=== PATIENT | female | born 1935 ===

== ENCOUNTER 2016-05-11 17:29 | Inpatient (IN) | payer MEDICARE, MEDICAID ==
[2016-05-11 17:30] VITALS: BMI 36.6
--- NOTE | 2016-05-11 18:06 | ED PDOC ---
HPI: Altered Mental Status Time Seen by Provider: 05/11/16 17:42 Chief Complaint (Nursing): Altered Mental Status History Per: Family History/Exam Limitations: Clinical Condition Onset/Duration Of Symptoms: Days (last known better yesterday evening) Current Symptoms Are (Timing): Still Present Usual Baseline: Non-verbal Exacerbating Factor(s): Diabetic Associated Symptoms: denies: Fever Additional Complaint(s): 17:55 Vanessa May is an 80 year old female with a history of diabetes, hypercholesterolemia, hypertension, thyroid disease, COPD, emphysema, and pancreatic cancer that was brought into the ED after being in the TCU earlier today. Her family reports that she had been admitted to the hospital eight days ago due to abnormalities in her kidneys and an infection in her legs, and that she had been improving over the course of her admission. Patient was better last night, but has been verbally and decreased responsive since checked on this morning. She is mildly physically responsive, in that she is moving her jaw and her feet, and has not had any fever or shortness of breath. PMD: Eddie Holm MD Past Medical History Reviewed: Historical Data, Nursing Documentation, Vital Signs Vital Signs: Last Vital Signs Temp Pulse 96 H 05/11/16 17:39 Resp 16 05/11/16 17:39 BP 131/58 L 05/11/16 17:39 Pulse Ox - Medical History PMH: Anxiety, Arthritis, COPD, Depression, Diabetes, HTN, Hypercholesterolemia, Hypothyroidism, Pneumonia, Chronic Kidney Disease Denies: Atrial Fibrillation, CAD, Cardia Arrhythmia, CHF, HIV, Mitral Valve Prolapse, Peripheral Edema - Surgical History Surgical History: Cholecystectomy Denies: Pacemaker - Family History Family History: States: Unknown Family Hx - Living Arrangements Living Arrangements: With Family - Social History Current smoker - smoking cessation education provided: No Alcohol: None Drugs: Denies - Immunization History Hx Tetanus Toxoid Vaccination: Yes - Home Medications Home Medications: Ambulatory Orders Medication Instructions Recorded Atorvastatin [Lipitor] 40 mg PO DAILY 05/17/15 Furosemide 20 mg PO DAILY 05/17/15 Levothyroxine [Synthroid] 25 mcg PO DAILY 05/17/15 Sevelamer Carbonate [Renvela] 800 mg PO DIN 05/17/15 Losartan [Cozaar] 100 mg PO DAILY 05/03/16 PARoxetine [Paxil] 40 mg PO DAILY 05/03/16 Potassium Chloride [K-Dur 20 mEq 20 meq PO DAILY 05/03/16 ER Tab] metFORMIN [glucOPHAGE] 500 mg PO TID 05/03/16 Cefepime [Maxipime] 1 gm IV Q12 #7 vial 05/09/16 Magnesium Oxide [Mag-Ox] 400 mg PO DAILY #30 tab 05/09/16 Menthol/Methyl Salicylate [BenGay] 1 applic TOP QID #30 tube 05/09/16 Vancomycin 1 GM [Vancomycin 1GM in 1 gm IVPB Q12 #7 bag 05/09/16 Normal Saline Addvantage] levETIRAcetam 500mg IVPB [Keppra 500 mg IV Q12 #10 bag 05/09/16 500mg IVPB] - Allergies Allergies/Adverse Reactions: Allergies Allergy/AdvReac Type Severity Reaction Status Date / Time william AdvReac Severe HEADACHE Uncoded 05/11/16 17:37 Review of Systems Review Of Systems: ROS cannot be obtained secondary to pt's inabilty to answer questions. Constitutional: Negative for: Fever Respiratory: Negative for: Shortness of Breath Neurological: Positive for: Altered Mental Status (verbally unresponsive, mildly physically responsive) Physical Exam - Reviewed Nursing Documentation Reviewed: Yes Vital Signs Reviewed: Yes - Physical Exam Appears: Positive for: Non-toxic, No Acute Distress Head Exam: Positive for: ATRAUMATIC, NORMOCEPHALIC Skin: Negative for: Normal Color (redness bilterally of lower extremities) Eye Exam: Positive for: PERRL ENT: Positive for: Normal ENT Inspection. Negative for: Nasal Congestion, Pharyngeal Erythema Neck: Positive for: Normal, Supple, Trachea Midline Cardiovascular/Chest: Positive for: Regular Rate, Rhythm. Negative for: Murmur , Tachycardia Respiratory: Positive for: Decreased Breath Sounds (b/l). Negative for: Wheezing Gastrointestinal/Abdominal: Positive for: Soft, Distended (mildly). Negative for: Tenderness Back: Positive for: Normal Inspection. Negative for: L CVA Tenderness, R CVA Tenderness Extremity: Positive for: Other (redness blaterally of lower extremities, slight pitting of legs bilaterally). Negative for: Tenderness Neurologic/Psych: Positive for: Other (limited exam due to pt. not responding; but pt. clenching down on eval of face; and moving extremities voluntarily). Negative for: Alert (patient verbally unresponsive) - Laboratory Results Result Diagrams: 05/11/16 18:56 Interpretation Of Abn Labs: urine wbc - ECG ECG: Positive for: Interpreted By Me, Viewed By Me ECG Rhythm: Positive for: Right Bundle Branch Block - Progress ED Course And Treament: 194: Dr. Sawant spoke with Dr. Fraga and no antibiotics at this time. Pending cx. Pt. already finished cefepime. Medical Decision Making Medical Decision Makin:00 Initial Impression: Altered Mental Status Initial Plan: * Ammonia * Creatinine Phosphokinase * B-Type Natriuretic Peptide * Magnesium * Phosphorous * Troponin I * CMP * CBC * PT * PTT * Blood Culture * Urine Culture * Urinalysis * Sodium Chloride 500 mL at 100 mLs/hr * Reevaluation 18:07 Spoke to [facility]. Spoke to Trailer Assembler Dr. Sawant, who is well aware of patient and performed CT Scan of head earlier today. CT Scan did not show anything acute, will continue to follow up on patient and add tests to further evaluate altered mental status. Other than getting a Justin Catheter, patient has had no other changes; no gross source of infection. Patient will be admitted under Dr. Sawant's and [facility] care. Scribe Attestation: Documented by Maria Kimbrough, acting as a scribe for Arturo Odonnell MD. Provider Scribe Attestation: All medical record entries made by the Scribe were at my direction and personally dictated by me. I have reviewed the chart and agree that the record accurately reflects my personal performance of the history, physical exam, medical decision making, and the department course for this patient. I have also personally directed, reviewed, and agree with the discharge instructions and disposition. Disposition - Clinical Impression Clinical Impression: Altered mental status - Patient ED Disposition Is Patient to be Admitted: Yes Discussed With : Jonelle Sawant Counseled Patient/Family Regarding: Studies Performed, Diagnosis - Disposition Disposition Time: 19:43 Condition: GUARDED - Pt Status Changed To: Hospital Disposition Of: Inpatient - Admit Certification Admit to Inpatient:: After my assessment, the patient will require hospitalization for at least two midnights. This is because of the severity of symptoms shown, intensity of services needed, and/or the medical risk in this patient being treated as an outpatient. - POA Present On Arrival: None
--- NOTE | 2016-05-11 18:11 | CP.PCM.HP ---
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 Patient was also unable to participate in PT/OT in TCU in past 2 days and has not been eating much as per nurse/physical therapy notes. Patient remains in no acute distress, however appears to be sleepy, responses to painful stimulus. Patient has no overnight fever, chills, diarrhea in TCU; during med/surg stay, patient did well, however had one episode of agitation, visual hallucination for which patient was evaluated by neuro/ID, extensive neurology work up was done and patient was found to have new onset seizure, currently being treated with keppra; patient has also completed vancomycin and cefepime courses for UTI and cellulitis. PMD: Dr. Infante PMH: HTN, DM,HLD, COPD, Pancreatic mass PSH: Cholecystectomy, Pituitary surgery (2015) Allergy: Ambien, possibly contrast dye F/H: DM (in mother and son) S/H: Lives at home alone with a in home sales consultant, has no recent travel history. Patient has a elevator to go up to her house. Gets around with a walker Present on Admission - Present on Admission Any Indicators Present on Admission: No History of DVT/PE: No History of Uncontrolled Diabetes: No Urinary Catheter: No Decubitus Ulcer Present: No Review of Systems - Review of Systems Systems not reviewed;Unavailable: Altered Mental Status Past Patient History - Past Medical History & Family History Past Medical History?: Yes - Past Social History Smoking Status: not known - CARDIAC Hx Atrial Fibrillation: No Hx Cardia Arrhythmia: No Hx Congestive Heart Failure: No Hx Hypercholesterolemia: Yes Hx Hypertension: Yes Hx Mitral Valve Prolapse: No Hx Pacemaker: No Hx Peripheral Edema: No - PULMONARY Hx Chronic Obstructive Pulmonary Disease (COPD): Yes Hx Pneumonia: Yes - NEUROLOGICAL Hx Neurological Disorder: No - HEENT Hx HEENT Problems: No Hx Deafness: No - RENAL Hx Chronic Kidney Disease: Yes - ENDOCRINE/METABOLIC Hx Hypothyroidism: Yes - HEMATOLOGICAL/ONCOLOGICAL Hx Human Immunodeficiency Virus (HIV): No - INTEGUMENTARY Hx Dermatological Problems: No - MUSCULOSKELETAL/RHEUMATOLOGICAL Hx Arthritis: Yes - GASTROINTESTINAL Hx Gastrointestinal Disorders: Yes Hx Vomiting: Yes - GENITOURINARY/GYNECOLOGICAL Hx Genitourinary Disorders: No - PSYCHIATRIC Hx Anxiety: Yes Hx Depression: Yes - SURGICAL HISTORY Hx Cholecystectomy: Yes - ANESTHESIA Hx Anesthesia: Yes Hx Anesthesia Reactions: No Hx Malignant Hyperthermia: No Meds Allergies/Adverse Reactions: Allergies Allergy/AdvReac Type Severity Reaction Status Date / Time ambien AdvReac Severe HEADACHE Uncoded 05/11/16 17:37 Physical Exam - Constitutional Appears: No Acute Distress Additional comments: appears swollen - Head Exam Head Exam: ATRAUMATIC, NORMAL INSPECTION, NORMOCEPHALIC - ENT Exam ENT Exam: Mucous Membranes Moist - Respiratory Exam Respiratory Exam: Clear to Auscultation Bilateral - Cardiovascular Exam Cardiovascular Exam: REGULAR RHYTHM, +S1, +S2 - GI/Abdominal Exam GI & Abdominal Exam: Distended, Normal Bowel Sounds - Extremities Exam Additional comments: slight redness - Neurological Exam Neurological exam: Alert - Skin Skin Exam: Dry, Intact, Normal Color Results - Vital Signs Recent Vital Signs: Last Vital Signs Temp Pulse 96 H 05/11/16 17:39 Resp 16 05/11/16 17:39 BP 131/58 L 05/11/16 17:39 Pulse Ox - Labs Result Diagrams: 05/11/16 18:56 Assessment & Plan - Assessment and Plan (Free Text) Plan: Assessment/Plans: 80 yo female with pmhx of T2DM, anxiety, arthritis, CAD, COPD, depression, hypertension will be admitted for AMS, lethargy. 1)AMS, lethargy, r/o infectious , cardiac, respiratory or other metabolic changes, delirium, hx of dementia -vitals remain stable, afebrile -reviewed labs from RAIL[employer] BRAKE OPERATOR -Neurologist Dr Griffin herring, during [employer]IL[employer] BRAKE OPERATOR instructed to give STAT keppra 750mg, continue keppra 750mg iv bid, however will hold until kidney function improves -ID Dr Guzmán is aware, has been treating the patient for UTI and cellulitis -reviewed ABG from ER admission: pco2-58, pH 7.35, hco3 28.5 2)Acute on chronic kidney failure, multifactorial, drug toxicity, fluid overload , cardiac etiology -Significant increase in Cr 4.4/decrease GFR 10; K, Mg BUN normal limit; phos 2.1 -Avoid nephrotoxic medications for now -monitor BUN/Cr in am -renal US normal limit 3)Pancreatic multi locular cystic mass, benign vs malignant -Evaluated by GI Dr Katz, no further work up since patient refuses it -reviewed CT abdomen/pelvis from 2015, 2017: increase in size of known multiocular cystic mass in the head of the pancreas. The differential considerations include serous cystadenoma, less likely mucinous cystadenoma given patients age, main or side duct PMN -monitor as outpatient 4)Cellulitis from last admission -Improving -Held abx for now because of current acute symptoms -ID Dr Guzmán consult; discussed disease course via phone 5)UTI from previous admission -repeat UA was sent last night; completed course of cefepime -UA on admission: moderate leuk esterase, cloudy, pos ketones -monitor 6)T2DM -held metformin -monitor 7)hypertension -held home meds 8)COPD -monitor 9)depression -discontinued celexa during [employer]IL[employer] BRAKE OPERATOR 10)anxiety -Discontinued xanax during previous admission due to lethargy, hallucination episodes during last visit 11)hypothyroidism -repeat TSH normal limit -continue levothyroixine 12)seizure -dx during previous admission -reviewed EEG from 05/03/16; activities suggestive of epileptiform focus -held keppra for now; keppra 750mg po one dose given during RAIL[employer] BRAKE OPERATOR as instructed per neurologist -monitor 13)prophylactic measures: -SCDs for now Decision To Admit - Pt Status Changed To: Hospital Disposition Of: Inpatient - Admit Certification Admit to Inpatient:: After my assessment, the patient will require hospitalization for at least two midnights. This is because of the severity of symptoms shown, intensity of services needed, and/or the medical risk in this patient being treated as an outpatient. - . Bed Request Type: Telemetry Admitting Physician: Ta Lipscomb <BalaccoTa - Last Filed: 05/14/16 06:38> Results - Vital Signs Recent Vital Signs: Last Vital Signs Temp 98.8 F 05/14/16 00:01 Pulse 88 05/14/16 00:01 Resp 21 05/14/16 00:01 BP 123/70 05/14/16 00:01 Pulse Ox 97 05/14/16 00:01 - Labs Result Diagrams: 05/12/16 06:00 05/13/16 09:00 Labs: Laboratory Results - last 24 hr 05/12/16 05/13/16 05/13/16 19:31 09:00 10:32 Sodium 136 Potassium 3.8 Chloride 102 Carbon Dioxide 28 Anion Gap 10 BUN 22 H Creatinine 5.6 H Est GFR ( Amer) 9 Est GFR (Non-Af Amer) 7 POC Glucose (mg/dL) Random Glucose 137 H Serum Osmolality 300 Uric Acid 7.6 H Calcium 7.9 L Phosphorus 2.3 L Magnesium 1.9 Urine Eosinophils Negative Complement C3 110.0 05/13/16 05/13/16 05/13/16 11:14 15:40 21:11 Sodium Potassium Chloride Carbon Dioxide Anion Gap BUN Creatinine Est GFR ( Amer) Est GFR (Non-Af Amer) POC Glucose (mg/dL) 149 H 151 H 172 H Random Glucose Serum Osmolality Uric Acid Calcium Phosphorus Magnesium Urine Eosinophils Complement C3 05/14/16 06:02 Sodium Potassium Chloride Carbon Dioxide Anion Gap BUN Creatinine Est GFR ( Amer) Est GFR (Non-Af Amer) POC Glucose (mg/dL) 111 H Random Glucose Serum Osmolality Uric Acid Calcium Phosphorus Magnesium Urine Eosinophils Complement C3 Attending/Attestation - Attestation I have personally seen and examined this patient.: Yes I have fully participated in the care of the patient.: Yes I have reviewed all pertinent clinical information: Yes
[2016-05-11 18:57] LABS: ABG ALLEN TEST YES; ARTERIAL BLOOD GAS HCO3 28.5 mmol/L (21-28); ARTERIAL BLOOD GAS PH 7.35 (7.35-7.45); ARTERIAL BLOOD GAS PO2 83 mm/Hg (80-100)
[2016-05-11] MEDS: Sodium Chloride 0.9% 500 ML IV SCH (19:07)
[2016-05-11 19:16] LABS: ALB/GLOB RATIO 0.8 (1.0-2.1); ALKALINE PHOSPHATASE 80 U/L (38-126); ALT/SGPT 18 U/L (9-52); AST/SGOT 16 U/L (14-36); BILIRUBIN,TOTAL 0.6 mg/dl (0.2-1.3); BLOOD UREA NITROGEN 18 mg/dl (7-17); CALCIUM 8.5 mg/dL (8.4-10.2); CARBON DIOXIDE 25 mmol/L (22-30); CHLORIDE 101 mmol/L (98-107); GFR AFRICAN-AMERICAN 11; GLUCOSE,RANDOM 96 mg/dL (65-105); MAGNESIUM 1.9 MG/DL (1.6-2.3); PHOSPHOROUS 2.2 mg/dl (2.5-4.5); POTASSIUM 4.2 MMOL/L (3.6-5.0); RBC URINE 12 /hpf (0-3); SODIUM 135 mmol/l (132-148); TOTAL PROTEIN 5.3 G/DL (6.3-8.2); URINE BILIRUBIN NEGATIVE (NEGATIVE); URINE BLOOD NEGATIVE (NEGATIVE); URINE COLOR AMBER (YELLOW); URINE GLUCOSE (UA) 50 mg/dL (Normal); URINE KETONE 20 mg/dL (NEGATIVE); URINE LEUKOCYTE ESTERASE MOD Leu/uL (Negative); URINE PROTEIN 100 mg/dL (NEGATIVE); URINE UROBILINOGEN 0.2-1.0 mg/dL (0.2-1.0); WBC URINE 25 /hpf (0-5)
[2016-05-11 20:38] LABS: HEMATOCRIT 34.1 % (34.0-47.0); MEAN CELL VOLUME 78.3 fl (81.0-99.0); MEAN CORPUSCULAR HEMOGLOBIN 23.9 pg (27.0-31.0); MEAN CORPUSCULAR HGB CONC 30.5 g/dL (33.0-37.0); RED CELL DISTRIBUTION WIDTH 18.6 % (11.5-14.5); WHITE BLOOD COUNT 12.3 K/uL (4.8-10.8)
--- NOTE | 2016-05-11 22:03 | CP.PCM.PN ---
Subjective - Date & Time of Evaluation Date of Evaluation: 05/11/16 Time of Evaluation: 22:00 - Subjective Subjective: SHRAVAN consult dictated similar problem about a year ago hopefully will resolve. Objective - Vital Signs/Intake and Output Vital Signs (last 24 hours): Temp Pulse Resp BP Pulse Ox 99.0 F 101 H 22 133/56 L 98 05/11/16 21:05 05/11/16 21:05 05/11/16 21:05 05/11/16 21:05 05/11/16 21:05 - Medications Medications: Current Medications Sodium Chloride (Sodium Chloride 0.9%) 500 mls @ 100 mls/hr IV .Q5H [facility] Last Admin: 05/11/16 19:07 Dose: 100 mls/hr Levothyroxine Sodium (Synthroid) 25 mcg PO DAILY [facility] - Labs Labs: 05/11/16 20:37 05/11/16 18:56 PT 11.7 SECONDS (9.6-11.2) H 05/11/16 18:21 INR 1.13 (0.92-1.08) H 05/11/16 18:21 APTT 28.0 SECONDS (23.3-32.5) 05/11/16 18:21
[2016-05-11] MEDS ORDERED: Dextrose 50% SYRINGE Inj (50 ml) IV PRN (23:10)
[2016-05-11] MEDS ORDERED: Glucagon Recombinant 1 mg Inj IM PRN (23:10)
--- NOTE | 2016-05-11 23:11 | CON ---
DATE: 05/11/2016 HISTORY OF PRESENT ILLNESS: This 80-year-old female is being seen in renal consultation because of a cute kidney injury. The serum creatinine was 4.4, going up to 4.7. Reviewing present and previous c monicas and notes from TCU just a few days prior on the of the GFR is well over 60 and now it is __ ___, so this is all acute kidney injury. She was in TCU and ART was called because of lethargy. ABG showed slight pCO2 retention. CAT scan of the head and brain showed no acute changes and the BNP sh owed the acute kidney injury. She has been treated for bilateral cellulitis of the lower extremities with antibiotics. It is not clear of how much fluid she had been taken. Presently, there is an ind welling Justin catheter, ruling out obstructive uropathy. She does have a history of pituitary surger y. A previous episode of acute kidney injury about a year ago in 05/2015, she had a similar sudden in crease in the BUN and creatinine that thankfully resolved quite spontaneously and quickly. There was a prior question of some mild CKD and certainly she may have some mild underlying renal insufficienc y even on a good day. She does have a history of hypertension, hypertensive heart disease and possib le hypertensive renal disease, COPD, coronary artery disease, anxiety, arthritis, type 2 diabetes kishore litus, which certainly could also increase renal dysfunction. She has hypercholesterolemia. Present ly, she is quite confused, calling out in a loud voice, unable to answer questions even in [place]. She has a history of dementia along with altered mental status. There was question of seizure activi ty and Keppra has been given on a stat basis. Dr. Guzmán seeing her for cellulitis and urinary tr act infection. There is a pancreatic multiloculated cystic mass being evaluated by . The p atient refused further workup and evaluation. She has cystic mass at the head of the pancreas seriou s cystadenoma or mucinous cystadenoma might be within differential. As noted, there was a previous h istory of acute renal injury as outlined above. SOCIAL HISTORY: Presently nonsmoker, nondrinker. FAMILY HISTORY: Unobtainable at the present time. REVIEW OF SYSTEMS: Negative except as outlined above. PHYSICAL EXAMINATION: GENERAL: Shows a well-developed obese female lying flat in bed, marked cellulitis of both lower extr emities with significant edema on both sides. HEAD: Normocephalic, atraumatic. EYES: Sulcus. EOMs full, unable to visualize fundi. NECK: Supple. Unable to visualize neck veins. THORAX: Symmetrical. LUNGS: Clear to percussion and auscultation. CARDIAC: PMI left intercostal space midclavicular line, soft systolic murmur. No S3, no rub. ABDOMEN: Protuberant, soft, nontender, no gross organomegaly, no mass, no bruit. EXTREMITIES: As outlined cellulitis bilaterally with edema. Pulses diminished but intact. NEUROLOGIC: Seems to move all 4 extremities, but does not follow commands, altered mental status. IMPRESSION: Acute kidney injury, etiology to be determined. Prerenal factors versus post-renal fact ors. systemic inflammatory response syndrome. Doubt acute interstitial nephritis or acute sanjuanita merulonephritis. This is on top of perhaps some mild longstanding chronic kidney injury that she has experienced in the past along with previous episode of acute kidney injury. Overall prognosis is gu arded. We will follow with you. PLAN: Correctable fluid and electrolyte abnormalities and check fractional excretion of sodium. Fol low serial chemistries, Dr. Morgan will follow with you. Thank you for involving me in your patient's care. Tj Tompkins MD cc: [id number] TT: 05/11/2016 23:10:29 Confirmation # [id number] Dictation # [id number] tn
[2016-05-12] MEDS: Insulin Lispro (humaLOG) 100 Units/ml Inj SC SCH ×4 (07:01→22:22)
[2016-05-12 07:28] LABS: BILIRUBIN,TOTAL 0.5 mg/dl (0.2-1.3); CALCIUM 8.3 mg/dL (8.4-10.2); POTASSIUM 3.9 MMOL/L (3.6-5.0); TOTAL PROTEIN 5.2 G/DL (6.3-8.2)
[2016-05-12 07:40] LABS: ALB/GLOB RATIO 0.9 (1.0-2.1)
[2016-05-12 07:45] LABS: BASO % 0.3 % (0.0-2.0); EOS # 0.4 K/uL (0.0-0.7); EOS % 3.8 % (0.0-4.0); HEMATOCRIT 34.1 % (34.0-47.0); LYMPH # 1.1 K/uL (1.0-4.3); MEAN CELL VOLUME 78.4 fl (81.0-99.0); MEAN CORPUSCULAR HEMOGLOBIN 23.8 pg (27.0-31.0); MEAN CORPUSCULAR HGB CONC 30.3 g/dL (33.0-37.0); MEAN PLATELET VOLUME 8.1 fl (7.2-11.7); MONO # 0.6 K/uL (0.0-0.8); NEUT # 9.7 K/uL (1.8-7.0); NEUT % 81.9 % (50.0-75.0); NRBC % 0.1 % (0.0-0.0); RED CELL DISTRIBUTION WIDTH 18.5 % (11.5-14.5); WHITE BLOOD COUNT 11.8 K/uL (4.8-10.8)
[2016-05-12 07:48] LABS: CREATININE, RANDOM URINE 166.6 mg/dL
[2016-05-12] MEDS: Levothyroxine 25 MCG TAB PO SCH (09:13)
--- NOTE | 2016-05-12 09:53 | RAD ---
Obstructive series dated 05/11/2016. History: Abdominal distention. Frontal view of the chest and supine/erect views of the abdomen performed. Heart is enlarged. Aorta is ectatic and uncoiled. Mild bibasilar atelectasis and or infiltrates left greater than right. Suspect small bilateral effusions as well. The central pulmonary vasculature is slightly increased No evidence of free intraperitoneal air seen under the diaphragmatic surfaces. . No evidence of acute mechanical small bowel obstruction. Multilevel degenerative spondylosis of the thoracic and lumbar spine with mild dextroscoliosis of the lumbar spine. Impression: Bibasilar atelectasis and or infiltrates and small bilateral effusions. Slight increased pulmonary vascularity. Rule out underlying mild venous congestion. No evidence of acute mechanical bowel obstruction. .
[2016-05-12] MEDS: Sodium Chloride 0.9% 500 ML IV SCH ×2 (10:15→10:17)
--- NOTE | 2016-05-12 10:59 | CP.PCM.PN ---
Subjective - Date & Time of Evaluation Date of Evaluation: 05/12/16 Time of Evaluation: 11:01 - Subjective Subjective: ID NOTE CASE DISCUSSED LAST PM c RESIDENT(Avel) ACUTE RENAL INJURY NOTED CREATININE INCREASED TO 4.1 ,4.7 CREATININE TODAY 5.1 .EDY ON CONSULT HAVE DISCONTINUED MAXIPEME,VANCOMYCIN WAS DCed ON 05/09/16 BMP WAS WNL AT THAT TIME PATIENT LETHARGIG ON 05/11/16 AND TRANSFERED TO ER AND MOVED TO TELEMETRY CT OF HEAD WAS WNL RECULTURED ,NO ANTIBIOTICS AT PRESENT LACTIC ACID O.8,WBC :11 Objective - Vital Signs/Intake and Output Vital Signs (last 24 hours): Temp Pulse Resp BP Pulse Ox 97.8 F 97 H 18 135/65 99 05/12/16 07:46 05/12/16 07:46 05/12/16 07:46 05/12/16 07:46 05/12/16 07:46 - Medications Medications: Current Medications Dextrose (Glutose 15) 0 gm PO ONCE PRN; Protocol PRN Reason: Hypoglycemia Protocol Dextrose (Dextrose 50% Inj) 0 ml IV STAT PRN; Protocol PRN Reason: Hyglycemia Protocol Glucagon (Glucagen Diagnostic Kit) 0 mg IM STAT PRN; Protocol PRN Reason: Hypoglycemia Protocol Heparin Sodium (Porcine) (Heparin) 5,000 units SC Q12 [facility] PRN Reason: Protocol Sodium Chloride (Sodium Chloride 0.9%) 500 mls @ 100 mls/hr IV .Q5H [facility] Last Admin: 05/12/16 10:17 Dose: 100 mls/hr Insulin Human Lispro (Humalog) 0 units SC ACHS [facility] PRN Reason: Protocol Last Admin: 05/12/16 07:01 Dose: Not Given Levothyroxine Sodium (Synthroid) 25 mcg PO DAILY [facility] Last Admin: 05/12/16 09:13 Dose: 25 mcg - Labs Labs: 05/12/16 06:00 05/12/16 06:00 PT 11.7 SECONDS (9.6-11.2) H 05/11/16 18:21 INR 1.13 (0.92-1.08) H 05/11/16 18:21 APTT 28.0 SECONDS (23.3-32.5) 05/11/16 18:21
[2016-05-12 11:56] LABS: CALCIUM 8.1 mg/dL (8.4-10.2)
[2016-05-12 11:59] LABS: POTASSIUM 4.7 MMOL/L (3.6-5.0)
--- NOTE | 2016-05-12 13:23 | CP.PCM.PN ---
Addendum entered and electronically signed by Jonelle Sawant MD 05/12/16 17:03 : Nephro Dr Patterson and Dr Tompkins orders noted, furosemide iv 80mg once and psych consult; will monitor bmp in am Original Note: Subjective - Date & Time of Evaluation Date of Evaluation: 05/12/16 Time of Evaluation: 08:00 - Subjective Subjective: Patient was seen this morning, eating apple sauce; opens eyes and smiles upon calling her names. Justin intact; no fever, chills, overnight; will advance diet as tolerated. Objective - Vital Signs/Intake and Output Vital Signs (last 24 hours): Temp Pulse Resp BP Pulse Ox 98 F 95 H 18 162/79 H 96 05/12/16 12:00 05/12/16 12:00 05/12/16 12:00 05/12/16 12:00 05/12/16 12:00 - Medications Medications: Current Medications Dextrose (Glutose 15) 0 gm PO ONCE PRN; Protocol PRN Reason: Hypoglycemia Protocol Dextrose (Dextrose 50% Inj) 0 ml IV STAT PRN; Protocol PRN Reason: Hyglycemia Protocol Glucagon (Glucagen Diagnostic Kit) 0 mg IM STAT PRN; Protocol PRN Reason: Hypoglycemia Protocol Heparin Sodium (Porcine) (Heparin) 5,000 units SC Q12 [facility] PRN Reason: Protocol Sodium Chloride (Sodium Chloride 0.9%) 500 mls @ 100 mls/hr IV .Q5H [facility] Last Admin: 05/12/16 10:17 Dose: 100 mls/hr Insulin Human Lispro (Humalog) 0 units SC ACHS [facility] PRN Reason: Protocol Last Admin: 05/12/16 07:01 Dose: Not Given Levothyroxine Sodium (Synthroid) 25 mcg PO DAILY [facility] Last Admin: 05/12/16 09:13 Dose: 25 mcg - Labs Labs: 05/12/16 06:00 05/12/16 11:44 PT 11.7 SECONDS (9.6-11.2) H 05/11/16 18:21 INR 1.13 (0.92-1.08) H 05/11/16 18:21 APTT 28.0 SECONDS (23.3-32.5) 05/11/16 18:21 - Constitutional Appears: No Acute Distress - Head Exam Head Exam: ATRAUMATIC, NORMAL INSPECTION, NORMOCEPHALIC - ENT Exam ENT Exam: Mucous Membranes Dry - Respiratory Exam Respiratory Exam: Clear to Ausculation Bilateral. absent: Rhonchi, Wheezes, Respiratory Distress - Cardiovascular Exam Cardiovascular Exam: REGULAR RHYTHM, +S1, +S2 - GI/Abdominal Exam GI & Abdominal Exam: Soft, Normal Bowel Sounds - Extremities Exam Extremities Exam: Pedal Edema - Neurological Exam Neurological Exam: Alert - Psychiatric Exam Psychiatric exam: Normal Affect, Normal Mood - Skin Skin Exam: Dry, Intact Additional comments: bilateral bruising noted secondary to iv access Assessment and Plan - Assessment and Plan (Free Text) Assessment: Assessment/Plans: 80 yo female with pmhx of T2DM, anxiety, arthritis, CAD, COPD, depression, hypertension will be admitted for AMS, lethargy. 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 The differential considerations include serous cystadenoma, less likely mucinous cystadenoma given patients age, main or side duct PMN -monitor as outpatient 4)Cellulitis from last admission -Improving -Held abx for now because of current acute symptoms -ID Dr Guzmán consult; discussed disease course via phone 5)UTI from previous admission -repeat UA was sent last night; completed course of cefepime -UA on admission: moderate leuk esterase, cloudy, pos ketones -monitor 6)T2DM -held metformin -insulin sliding scale -monitor 7)hypertension -held home meds 8)COPD -monitor 9)depression -discontinued celexa 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
[2016-05-12] MEDS: Dextrose 5%/0.9% NS 1,000 ML IV SCH (15:37)
--- NOTE | 2016-05-13 03:09 | CP.PCM.PN ---
Subjective - Date & Time of Evaluation Date of Evaluation: 05/12/16 Time of Evaluation: 14:00 - Subjective Subjective: SEEN ON RENAL F/U IN COVERAGE OF DR MCGHEE CASE D/W THE SON AND THE DAUGHTER ON BED SIDE PT DEVELOPED SHRAVAN IN BETWEEN 05/08 AND 05/20 .. PT WAS UNRESPONSIVE AT THE TIME OF MY VISIT .. NON COMMUNICATIVE ..NON VERBAL - History of Present Illness History of Present Illness: This is a 80 yo female with pmhx of T2DM, anxiety, arthritis, CAD, COPD, depression, hypertension, hypercholesterolemia, hypothyroidism, CKD, dementia, was sent from TCU to ER for mental status changes; BULL GANG SUPERVISOR was called for lethargy, nurses were concerned,; STAT ABG (slight pco2 retention, normal pH), CT (no acute changes), CBC, CMP (elevated Cr, low gfr), Mg (normal), Phos (slightly low ) ordered. Patient was also unable to participate in PT/OT in TCU in past 2 days and has not been eating much as per nurse/physical therapy notes. Patient remains in no acute distress, however appears to be sleepy, responses to painful stimulus. Patient has no overnight fever, chills, diarrhea in TCU; during med/surg stay, patient did well, however had one episode of agitation, visual hallucination for which patient was evaluated by neuro/ID, extensive neurology work up was done and patient was found to have new onset seizure, currently being treated with keppra; patient has also completed vancomycin and cefepime courses for UTI and cellulitis. PMD: Dr. Infante PMH: HTN, DM,HLD, COPD, Pancreatic mass PSH: Cholecystectomy, Pituitary surgery (2015) Allergy: Ambien, possibly contrast dye F/H: DM (in mother and son) S/H: Lives at home alone with a homemaker companion, has no recent travel history. Patient has a elevator to go up to her house. Gets around with a walker Objective - Vital Signs/Intake and Output Vital Signs (last 24 hours): Temp Pulse Resp BP Pulse Ox 97.7 F 94 H 21 146/72 99 05/12/16 23:41 05/12/16 23:41 05/12/16 23:41 05/12/16 23:41 05/12/16 23:41 Intake and Output: 05/12/16 05/13/16 18:59 07:59 Intake Total 1200 Output Total 100 Balance 1100 - Medications Medications: Current Medications Dextrose (Glutose 15) 0 gm PO ONCE PRN; Protocol PRN Reason: Hypoglycemia Protocol Dextrose (Dextrose 50% Inj) 0 ml IV STAT PRN; Protocol PRN Reason: Hyglycemia Protocol Glucagon (Glucagen Diagnostic Kit) 0 mg IM STAT PRN; Protocol PRN Reason: Hypoglycemia Protocol Heparin Sodium (Porcine) (Heparin) 5,000 units SC Q12 [facility] PRN Reason: Protocol Last Admin: 05/12/16 22:00 Dose: 5,000 units Dextrose/Sodium Chloride (Dextrose 5%/0.9% Ns 1000 Ml) 1,000 mls @ 75 mls/hr IV .[id number] [facility] Stop: 05/13/16 14:46 Last Admin: 05/12/16 15:37 Dose: 75 mls/hr Insulin Human Lispro (Humalog) 0 units SC ACHS [facility] PRN Reason: Protocol Last Admin: 05/12/16 22:22 Dose: Not Given Levothyroxine Sodium (Synthroid) 25 mcg PO DAILY [facility] Last Admin: 05/12/16 09:13 Dose: 25 mcg - Labs Labs: 05/12/16 06:00 05/12/16 11:44 PT 11.7 SECONDS (9.6-11.2) H 05/11/16 18:21 INR 1.13 (0.92-1.08) H 05/11/16 18:21 APTT 28.0 SECONDS (23.3-32.5) 05/11/16 18:21 Assessment and Plan - Assessment and Plan (Free Text) Assessment: SHRAVAN .. HAPPENED BETWEEN 05/08 AND 05/11 R/O INTERSTITIAL NEPHRITIS ..R/O ATN PT IS ON IVF OF D5 NS AT 57 CC/H I ORDERED 80 MG LASIX IVP SLOWLY WILL WATCH RENAL FUNCTION VERY CLOSELY OVER THE WEEK END . IF NO IMPROVEMENT THEN WILL CONSIDER HD CASE D/W CHILDREN AT THE BED SIDE FOR APPROXIMATELY 1/2 HOUR ALL THEIR QUESTIONS WERE ANSWERED TO THEI SATISFACTION
[2016-05-13] MEDS: Dextrose 5%/0.9% NS 1,000 ML IV SCH (05:00)
[2016-05-13] MEDS: Insulin Lispro (humaLOG) 100 Units/ml Inj SC SCH ×4 (06:40→21:32)
[2016-05-13] MEDS: Levothyroxine 25 MCG TAB PO SCH (08:23)
[2016-05-13 09:21] LABS: CALCIUM 7.9 mg/dL (8.4-10.2); POTASSIUM 3.8 MMOL/L (3.6-5.0); URIC ACID 7.6 mg/Dl (2.2-7.5)
[2016-05-13 10:35] LABS: MAGNESIUM 1.9 MG/DL (1.6-2.3); PHOSPHOROUS 2.3 mg/dl (2.5-4.5)
--- NOTE | 2016-05-13 12:24 | CP.PCM.PN ---
Addendum entered and electronically signed by Jonelle Sawant MD 05/13/16 16:19 : correction: FENa 1.8, intrinsic renal etiology Addendum entered and electronically signed by Giacomo Guerrero MD 05/13/16 13:30 : Calculated FENA was more then 7.5 % most likely consistent with ATN. Original Note: Subjective - Date & Time of Evaluation Date of Evaluation: 05/13/16 Time of Evaluation: 12:06 - Subjective Subjective: Pt seen w/ daughter at bedside, she appeared comfortable, she recognized her daughter was responding to verbal and tactile stimuli. PT was able to eat apple sause. Justin intact, no fever, no chills overnight will advance diet as tolerate. Spoke to nephrology, will contact IR for femoral catheter placement in the morning and start dialysis tomorrow Objective - Vital Signs/Intake and Output Vital Signs (last 24 hours): Temp Pulse Resp BP Pulse Ox 97.6 F 95 H 20 159/76 H 98 05/13/16 09:00 05/13/16 09:00 05/13/16 09:00 05/13/16 09:00 05/13/16 09:00 Intake and Output: 05/13/16 05/13/16 06:59 18:59 Intake Total Output Total Balance - Medications Medications: Current Medications Dextrose (Glutose 15) 0 gm PO ONCE PRN; Protocol PRN Reason: Hypoglycemia Protocol Dextrose (Dextrose 50% Inj) 0 ml IV STAT PRN; Protocol PRN Reason: Hyglycemia Protocol Glucagon (Glucagen Diagnostic Kit) 0 mg IM STAT PRN; Protocol PRN Reason: Hypoglycemia Protocol Heparin Sodium (Porcine) (Heparin) 5,000 units SC Q12 [facility] PRN Reason: Protocol Last Admin: 05/13/16 08:23 Dose: 5,000 units Dextrose/Sodium Chloride (Dextrose 5%/0.9% Ns 1000 Ml) 1,000 mls @ 75 mls/hr IV .[id number] [facility]CLUD[facility] Stop: 05/13/16 14:46 Last Admin: 05/13/16 05:00 Dose: 75 mls/hr Insulin Human Lispro (Humalog) 0 units SC ACHS [facility] PRN Reason: Protocol Last Admin: 05/13/16 12:03 Dose: Not Given Levothyroxine Sodium (Synthroid) 25 mcg PO DAILY [facility] Last Admin: 05/13/16 08:23 Dose: 25 mcg - Labs Labs: 05/12/16 06:00 05/13/16 09:00 PT 11.7 SECONDS (9.6-11.2) H 05/11/16 18:21 INR 1.13 (0.92-1.08) H 05/11/16 18:21 APTT 28.0 SECONDS (23.3-32.5) 05/11/16 18:21 - Constitutional Appears: No Acute Distress (Was resonding to name and able to recognize granddaughter) - Head Exam Head Exam: ATRAUMATIC, NORMAL INSPECTION, NORMOCEPHALIC - ENT Exam ENT Exam: Mucous Membranes Moist - Respiratory Exam Respiratory Exam: Clear to Ausculation Bilateral, NORMAL BREATHING PATTERN. absent: Rhonchi, Wheezes - Cardiovascular Exam Cardiovascular Exam: REGULAR RHYTHM, +S1, +S2 - GI/Abdominal Exam GI & Abdominal Exam: Soft, Normal Bowel Sounds. absent: Tenderness - Extremities Exam Extremities Exam: Pedal Edema Additional comments: +2 pitting edema on lower extremities. - Cellulites seems to have resolved skin color appears normal - Neurological Exam Neurological Exam: Alert, Awake - Skin Skin Exam: Normal Color, Warm Assessment and Plan - Assessment and Plan (Free Text) Assessment: 80 yo female with pmhx of T2DM, anxiety, arthritis, CAD, COPD, depression, hypertension will be admitted for AMS, lethargy. 1)AMS, lethargy, multifactorial medication side effects, delirium -improving -vitals remain stable, afebrile -reviewed MRI, CT of head, no acute findings -ID Dr Guzmán is aware, has been treating the patient for UTI and cellulitis ; no abx for now -monitor inpatient - F/U EEG 2)Acute on chronic kidney failure, multifactorial, drug toxicity, fluid overload , cardiac etiology -BUN and creatine continue to increase BUN/Creatine :21/5.2 GFR 8, BUN/ Creatinine: 22/5.6 GFP: 7 -Avoid nephrotoxic medications for now - Mg+: wnl, phosphorous:2.3 -monitor BUN/Cr in am -renal US normal limit -Supervisor Adult Education Dr Aguilera appreciated - Lasix 80 mg IVP slowly - Will consult IR tomorrow morning for femoral catheter placement, and initiate dialysis tomorrow. - F/U C3, C4, Eosinophil in urine 3)Pancreatic multi locular cystic mass, benign vs malignant -Evaluated by GI Dr Katz, no further work up since patient refuses it -reviewed CT abdomen/pelvis from 2015, 2017: increase in size of known multiocular cystic mass in the head of the pancreas. The differential considerations include serous cystadenoma, less likely mucinous cystadenoma given patients age, main or side duct PMN -monitor as outpatient 4)Cellulitis from last admission -Improving -Held abx for now because of current acute symptoms -ID Dr Guzmán consult; discussed disease course via phone 5)UTI -completed course of cefepime - Currently no antibiotic indicated as per ID - U/A from 05/11/16: showed yeast 10,000-50,000 possible contamination - UA on admission: moderate leuk esterase, cloudy, pos ketones -monitor 6)T2DM -held metformin -insulin sliding scale -monitor 7)hypertension -held home meds 8)COPD -monitor 9)depression -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
--- NOTE | 2016-05-13 13:48 | CP.PCM.CON ---
History of Present Illness - History of Present Illness History of Present Illness: This is a 80 yr old emale with h/o cOPD,HTN ,Arthritis and depression admitted for AMS ,presenting with lethargy and visual hallucinations and psych consult requested for evaluation of depression.pt has been d/c on xanax and celexa pt is still very lethargic and mumbles to self while eyes are closed Past Patient History - Past Medical History & Family History Past Medical History?: Yes - Past Social History Smoking Status: Never Smoked - CARDIAC Hx Cardiac Disorders: Yes Hx Hypercholesterolemia: Yes Hx Hypertension: Yes - PULMONARY Hx Respiratory Disorders: Yes Hx Chronic Obstructive Pulmonary Disease (COPD): Yes Hx Pneumonia: Yes - NEUROLOGICAL Hx Neurological Disorder: Yes Hx Dementia: Yes Hx Seizures: Yes - HEENT Hx HEENT Problems: No - RENAL Hx Chronic Kidney Disease: Yes Other/Comment: ckd - ENDOCRINE/METABOLIC Hx Endocrine Disorders: Yes Hx Diabetes Mellitus Type 2: Yes Hx Hypothyroidism: Yes - HEMATOLOGICAL/ONCOLOGICAL Hx Blood Disorders: No Hx Human Immunodeficiency Virus (HIV): No Hx Leukemia: No - INTEGUMENTARY Hx Dermatological Problems: No - MUSCULOSKELETAL/RHEUMATOLOGICAL Hx Musculoskeletal Disorders: Yes Hx Arthritis: Yes Hx Falls: No - GASTROINTESTINAL Hx Gastrointestinal Disorders: No - GENITOURINARY/GYNECOLOGICAL Hx Genitourinary Disorders: Yes Hx Urinary Tract Infection: Yes - PSYCHIATRIC Hx Psychophysiologic Disorder: Yes Hx Anxiety: Yes Hx Depression: Yes - SURGICAL HISTORY Hx Surgeries: Yes Hx Cholecystectomy: Yes Other/Comment: pituitary surgery - ANESTHESIA Hx Anesthesia: Yes Hx Anesthesia Reactions: No Hx Malignant Hyperthermia: No Has any member of the family had a problem w/ anesthesia?: No Meds Allergies/Adverse Reactions: Allergies Allergy/AdvReac Type Severity Reaction Status Date / Time ambien AdvReac Severe HEADACHE Uncoded 05/11/16 17:37 - Medications Medications: Current Medications Dextrose (Glutose 15) 0 gm PO ONCE PRN; Protocol PRN Reason: Hypoglycemia Protocol Dextrose (Dextrose 50% Inj) 0 ml IV STAT PRN; Protocol PRN Reason: Hyglycemia Protocol Glucagon (Glucagen Diagnostic Kit) 0 mg IM STAT PRN; Protocol PRN Reason: Hypoglycemia Protocol Heparin Sodium (Porcine) (Heparin) 5,000 units SC Q12 [facility] PRN Reason: Protocol Last Admin: 05/13/16 08:23 Dose: 5,000 units Dextrose/Sodium Chloride (Dextrose 5%/0.9% Ns 1000 Ml) 1,000 mls @ 75 mls/hr IV .[id number] [facility] Stop: 05/13/16 14:46 Last Admin: 05/13/16 05:00 Dose: 75 mls/hr Insulin Human Lispro (Humalog) 0 units SC ACHS [facility] PRN Reason: Protocol Last Admin: 05/13/16 12:03 Dose: Not Given Levothyroxine Sodium (Synthroid) 25 mcg PO DAILY [facility] Last Admin: 05/13/16 08:23 Dose: 25 mcg Physical Exam - Psychiatric Exam Psychiatric exam: Flat Affect Additional comments: pt is still very lethargic and could not do any interview but as per staff pt is having wacing and waning of mental status Results - Vital Signs Recent Vital Signs: Last Vital Signs Temp 98.0 F 05/13/16 12:19 Pulse 96 H 05/13/16 12:19 Resp 18 05/13/16 12:19 BP 132/65 05/13/16 12:43 Pulse Ox 100 05/13/16 12:19 - Labs Result Diagrams: 05/14/16 05:20 05/14/16 05:20 Labs: Laboratory Results - last 24 hr 05/12/16 05/12/16 05/12/16 16:16 19:31 22:12 Sodium Potassium Chloride Carbon Dioxide Anion Gap BUN Creatinine Est GFR ( Amer) Est GFR (Non-Af Amer) POC Glucose (mg/dL) 96 111 H Random Glucose Serum Osmolality Uric Acid Calcium Phosphorus Magnesium Urine Eosinophils Negative 05/13/16 05/13/16 05/13/16 05:46 09:00 10:32 Sodium 136 Potassium 3.8 Chloride 102 Carbon Dioxide 28 Anion Gap 10 BUN 22 H Creatinine 5.6 H Est GFR ( Amer) 9 Est GFR (Non-Af Amer) 7 POC Glucose (mg/dL) 108 Random Glucose 137 H Serum Osmolality 300 Uric Acid 7.6 H Calcium 7.9 L Phosphorus 2.3 L Magnesium 1.9 Urine Eosinophils 05/13/16 11:14 Sodium Potassium Chloride Carbon Dioxide Anion Gap BUN Creatinine Est GFR ( Amer) Est GFR (Non-Af Amer) POC Glucose (mg/dL) 149 H Random Glucose Serum Osmolality Uric Acid Calcium Phosphorus Magnesium Urine Eosinophils Assessment & Plan - Assessment and Plan (Free Text) Assessment: A/p : delirium nos due to postictal lethargy and confusion vs toxic metabolic encephalopathy h/o Depression Plan : will advice to keep her off celexa and xanax and treat the medical cause of delirium follow up with neurology recall psych when more alert or increase in depression
--- NOTE | 2016-05-13 15:48 | PN ---
DATE: 05/13/2016 TIME OF EVALUATION: 2:30 p.m. NEUROLOGICAL PROBLEM: Electrographic seizures with change in mental status. The whole events has be en happening for the last few days, transferred from the long-term unit to the ER and ER to the [facility] floor, being reviewed. Her mental status is not improved. At times, patient opens her eyes and follow commands and then the rest of the time she sleeps. The recommended Keppra is on hold assuming that Keppra would be the cause for her change in mental st atus, which I doubt it at present. BLOOD WORKUP: Sodium 136, potassium 3.8, chloride 102, bicarbonate 28, BUN 22, creatinine 5.6, gluco se 149, magnesium 1.9. RECOMMENDATIONS: The patient is on hydration. I would closely observe her. The patient is not on a ny antiepileptic drugs. The patient is scheduled to have EEG tomorrow morning and depending on the f indings, the antiepileptic drugs could be started. The patient will be followed closely with you. Torito Moya MD cc: [id number] TT: 05/13/2016 15:47:26 Confirmation # [id number] Dictation # [id number] roxy
--- NOTE | 2016-05-13 17:37 | CP.PCM.PN ---
Subjective - Date & Time of Evaluation Date of Evaluation: 05/13/16 Time of Evaluation: 17:36 - Subjective Subjective: ID NOTE PATIENT IS STIIL LETHARGIC , AFEBRILE CREATININE IS 5.6,POSSIBLE HD TOMORROW NO FEVER ,CHILLS ,OR SWEATS BLOOD CULTURE IS NEGATIVE URINE IS POSITIVE FOR YEAST WILL NT RX AT PRESENT TIME CHECK CBC IN AM Objective - Vital Signs/Intake and Output Vital Signs (last 24 hours): Temp Pulse Resp BP Pulse Ox 98.4 F 97 H 20 132/65 99 05/13/16 15:36 05/13/16 15:36 05/13/16 15:36 05/13/16 15:36 05/13/16 15:36 Intake and Output: 05/13/16 05/13/16 06:59 18:59 Intake Total Output Total Balance - Medications Medications: Current Medications Dextrose (Glutose 15) 0 gm PO ONCE PRN; Protocol PRN Reason: Hypoglycemia Protocol Dextrose (Dextrose 50% Inj) 0 ml IV STAT PRN; Protocol PRN Reason: Hyglycemia Protocol Glucagon (Glucagen Diagnostic Kit) 0 mg IM STAT PRN; Protocol PRN Reason: Hypoglycemia Protocol Heparin Sodium (Porcine) (Heparin) 5,000 units SC Q12 [facility] PRN Reason: Protocol Last Admin: 05/13/16 08:23 Dose: 5,000 units Insulin Human Lispro (Humalog) 0 units SC ACHS [facility] PRN Reason: Protocol Last Admin: 05/13/16 17:22 Dose: 2 unit Levothyroxine Sodium (Synthroid) 25 mcg PO DAILY [facility] Last Admin: 05/13/16 08:23 Dose: 25 mcg - Labs Labs: 05/12/16 06:00 05/13/16 09:00 PT 11.7 SECONDS (9.6-11.2) H 05/11/16 18:21 INR 1.13 (0.92-1.08) H 05/11/16 18:21 APTT 28.0 SECONDS (23.3-32.5) 05/11/16 18:21
--- NOTE | 2016-05-13 19:18 | CP.PCM.PN ---
Subjective - Date & Time of Evaluation Date of Evaluation: 05/13/16 Time of Evaluation: 15:00 - Subjective Subjective: SEEN ON RENAL F/U RENAL FUNCTION C/O TO DETERIORATE WILL START HD IN AM FEMORAL CATH TO BE DONE BY IR D/W HOSPITALIST Objective - Vital Signs/Intake and Output Vital Signs (last 24 hours): Temp Pulse Resp BP Pulse Ox 98.3 F 94 H 20 108/67 98 05/13/16 18:46 05/13/16 18:46 05/13/16 18:46 05/13/16 18:46 05/13/16 18:46 Intake and Output: 05/13/16 05/14/16 18:59 06:59 Intake Total 825 Output Total 100 Balance 725 - Medications Medications: Current Medications Dextrose (Glutose 15) 0 gm PO ONCE PRN; Protocol PRN Reason: Hypoglycemia Protocol Dextrose (Dextrose 50% Inj) 0 ml IV STAT PRN; Protocol PRN Reason: Hyglycemia Protocol Glucagon (Glucagen Diagnostic Kit) 0 mg IM STAT PRN; Protocol PRN Reason: Hypoglycemia Protocol Heparin Sodium (Porcine) (Heparin) 5,000 units SC Q12 [facility] PRN Reason: Protocol Last Admin: 05/13/16 08:23 Dose: 5,000 units Insulin Human Lispro (Humalog) 0 units SC ACHS [facility] PRN Reason: Protocol Last Admin: 05/13/16 17:22 Dose: 2 unit Levothyroxine Sodium (Synthroid) 25 mcg PO DAILY [facility] Last Admin: 05/13/16 08:23 Dose: 25 mcg - Labs Labs: 05/12/16 06:00 05/13/16 09:00 PT 11.7 SECONDS (9.6-11.2) H 05/11/16 18:21 INR 1.13 (0.92-1.08) H 05/11/16 18:21 APTT 28.0 SECONDS (23.3-32.5) 05/11/16 18:21 Assessment and Plan - Assessment and Plan (Free Text) Assessment: SHRAVAN .. WORSENING OF RENAL FUNCTION .. OLIGURIA WILL START HD IN AM
--- NOTE | 2016-05-13 20:32 | CARD ---
APPROVED REPORT EKG Measurement Heart [id number] <Conclusion> Normal sinus rhythm Possible Left atrial enlargement Right bundle branch block Left anterior fascicular block Bifascicular block Left ventricular hypertrophy Abnormal ECG
[2016-05-14] MEDS: Insulin Lispro (humaLOG) 100 Units/ml Inj SC SCH ×4 (06:43→22:25)
[2016-05-14 06:52] LABS: BASO # 0.1 K/uL (0.0-0.2); BASO % 0.7 % (0.0-2.0); EOS # 0.4 K/uL (0.0-0.7); EOS % 4.2 % (0.0-4.0); LYMPH # 1.7 K/uL (1.0-4.3); LYMPH % 17.5 % (20.0-40.0); MEAN CELL VOLUME 78.1 fl (81.0-99.0); MEAN CORPUSCULAR HEMOGLOBIN 24.3 pg (27.0-31.0); MEAN CORPUSCULAR HGB CONC 31.2 g/dL (33.0-37.0); MEAN PLATELET VOLUME 8.1 fl (7.2-11.7); MONO # 0.6 K/uL (0.0-0.8); MONO % 5.7 % (0.0-10.0); NEUT % 71.9 % (50.0-75.0); NRBC % 0.1 % (0.0-0.0); RED CELL DISTRIBUTION WIDTH 18.5 % (11.5-14.5); WHITE BLOOD COUNT 9.8 K/uL (4.8-10.8)
[2016-05-14 07:33] LABS: ALB/GLOB RATIO 0.8 (1.0-2.1); BILIRUBIN,TOTAL 0.2 mg/dl (0.2-1.3); CALCIUM 8.1 mg/dL (8.4-10.2); POTASSIUM 3.9 MMOL/L (3.6-5.0); TOTAL PROTEIN 4.9 G/DL (6.3-8.2)
[2016-05-14] MEDS: Levothyroxine 25 MCG TAB PO SCH (09:00)
[2016-05-14] MEDS ORDERED: Lidocaine 1% Inj (20ml) ONE (12:19)
--- NOTE | 2016-05-14 13:59 | PCM.SURG1 ---
Surgeon's Initial Post Op Note - Surgeon's Notes Surgeon: Max[employer] Representative: None Type of Anesthesia: Local Pre-Operative Diagnosis: ARF Operative Findings: Patent right internal jugular vein Post-Operative Diagnosis: ARF Operation Performed: Placement of RIJV 15cm non tunneled HD catheter. Specimen/Specimens Removed: None Estimated Blood Loss: EBL {In ML}: 1 Date of Surgery/Procedure: 05/14/16 Time of Surgery/Procedure: 13:10
--- NOTE | 2016-05-14 14:05 | VASCULAR ---
Ultrasound and fluoroscopically guided insertion of right internal jugular vein non tunneled dialysis catheter History: 80 -year-old female requiring non tunneled dialysis catheter for plasmapheresis. Comparison: None. Anesthesia: Local lidocaine. Procedure findings: The procedure was explained to the patient with relative risks and benefits. The patient understood the procedure and provided written informed consent. The patient was positioned supine on the angiographic table. Continuous physiologic monitoring was provided by the interventional radiology nurse. The right neck region was prepped and draped in the usual sterile technique. Under direct ultrasound guidance, the right internal jugular vein was accessed using a 21 gauge micropuncture needle. A 0.018 inch wire was introduced through the needle into the SVC. The micropuncture needle was then exchanged for a 4 Mongolian transition catheter. A stiff guidewire was introduced through the transition catheter into the IVC. The transition catheter was then removed and serial fascial dilators were introduced into the right neck extending up to the venotomy site. Subsequently, a 14 Mongolian, 15 centimeter dual lumen non tunneled dialysis catheter was introduced into the right internal jugular vein under fluoroscopic guidance. The catheter flushed with normal saline and heparin. The patient tolerated the procedure well without any incident. The patient was transferred from the interventional Radiology department in stable condition. Impression: Successful introduction of a right internal jugular vein non tunneled dialysis catheter.
--- NOTE | 2016-05-14 15:21 | CP.PCM.PN ---
<Giacomo Guerrero - Last Filed: 05/14/16 15:54> Subjective - Date & Time of Evaluation Date of Evaluation: 05/14/16 Time of Evaluation: 07:45 - Subjective Subjective: PT seen resting in bed sleeping with daughter at bedside. Daughter states pt was able to recognize her. Patient slept well throughout the night and has not had any overnight events. - Dr. Marsh placed RIJV 15cm non tunneled HD catheter - Pt scheduled for HD today Objective - Vital Signs/Intake and Output Vital Signs (last 24 hours): Temp Pulse Resp BP Pulse Ox 98.7 F 95 H 20 165/91 H 98 05/14/16 12:58 05/14/16 12:58 05/14/16 12:58 05/14/16 12:58 05/14/16 12:58 - Medications Medications: Current Medications Dextrose (Glutose 15) 0 gm PO ONCE PRN; Protocol PRN Reason: Hypoglycemia Protocol Dextrose (Dextrose 50% Inj) 0 ml IV STAT PRN; Protocol PRN Reason: Hyglycemia Protocol Glucagon (Glucagen Diagnostic Kit) 0 mg IM STAT PRN; Protocol PRN Reason: Hypoglycemia Protocol Heparin Sodium (Porcine) (Heparin) 5,000 units SC Q12 [facility] PRN Reason: Protocol Last Admin: 05/13/16 08:23 Dose: 5,000 units Insulin Human Lispro (Humalog) 0 units SC ACHS [facility] PRN Reason: Protocol Last Admin: 05/14/16 06:43 Dose: Not Given Levothyroxine Sodium (Synthroid) 25 mcg PO DAILY [facility] Last Admin: 05/13/16 08:23 Dose: 25 mcg - Labs Labs: 05/14/16 05:20 05/14/16 05:20 PT 11.7 SECONDS (9.6-11.2) H 05/11/16 18:21 INR 1.13 (0.92-1.08) H 05/11/16 18:21 APTT 28.0 SECONDS (23.3-32.5) 05/11/16 18:21 - Eye Exam Eye Exam: EOMI, PERRL Pupil Exam: PERRL - Respiratory Exam Respiratory Exam: NORMAL BREATHING PATTERN Additional comments: Right sided crackles noted - Cardiovascular Exam Cardiovascular Exam: REGULAR RHYTHM, +S1, +S2 - GI/Abdominal Exam GI & Abdominal Exam: Soft, Normal Bowel Sounds - Extremities Exam Extremities Exam: Pedal Edema Assessment and Plan - Assessment and Plan (Free Text) Assessment: 80 yo female with pmhx of T2DM, anxiety, arthritis, CAD, COPD, depression, hypertension will be admitted for AMS, lethargy. 1)AMS, lethargy, multifactorial medication side effects, delirium -improving -vitals remain stable, afebrile -reviewed MRI, CT of head, no acute findings - treating the patient for UTI and cellulitis; no abx for now -monitor inpatient - HD scheduled for today - F/U EEG 2)Acute on chronic kidney failure, multifactorial, drug toxicity, fluid overload , cardiac etiology -BUN and creatine continue to increase BUN/Creatine :24/6.5 GFR 6, -Avoid nephrotoxic medications for now - Mg+: wnl, phosphorous:2.3 -monitor BUN/Cr in am -Director Of Financial Planning Dr Aguilera appreciated - C3, C4, Eosinophil in urine negative - HD scheduled for today 3)Pancreatic multi locular cystic mass, benign vs malignant -Evaluated by GI Dr Katz, no further work up since patient refuses it -reviewed CT abdomen/pelvis from 2015, 2017: increase in size of known multiocular cystic mass in the head of the pancreas. The differential considerations include serous cystadenoma, less likely mucinous cystadenoma given patients age, main or side duct PMN -monitor as outpatient 4)Cellulitis from last admission (Treated) -Improving -Held abx for now because of current acute symptoms -ID Dr Guzmán consult; discussed disease course via phone 5)UTI -completed course of cefepime for initial UTI on admission - Currently no antibiotic indicated as per ID - U/A from 05/11/16: showed yeast 10,000-50,000 possible contamination, no Rx as per ID currently 6)T2DM -held metformin -insulin sliding scale -monitor 7)hypertension -held home meds 8)COPD -monitor 9)depression -discontinued celexa during [employer] - Psych consult appreciated: Will hold medication untill renal function gets better. 10)anxiety -Discontinued xanax during previous admission due to lethargy, hallucination episodes during last visit 11)hypothyroidism -repeat TSH normal limit -continue levothyroixine 12)seizure -dx during previous admission -reviewed EEG from 05/03/16; activities suggestive of epileptiform focus -held keppra for now; keppra 750mg po one dose given during [employer] as instructed per neurologist - F/U another EEG -monitor 13)prophylactic measures: -heparin 5000u sc q12 <Ta Lipscomb - Last Filed: 05/17/16 06:49> Objective - Vital Signs/Intake and Output Vital Signs (last 24 hours): Temp Pulse Resp BP Pulse Ox 98.4 F 93 H 22 146/63 99 05/16/16 16:00 05/16/16 16:00 05/16/16 16:00 05/16/16 16:00 05/16/16 16:00 - Medications Medications: Current Medications Ascorbic Acid (Vitamin C 500 Mg Tab) 500 mg PO DAILY [facility] Dextrose (Glutose 15) 0 gm PO ONCE PRN; Protocol PRN Reason: Hypoglycemia Protocol Dextrose (Dextrose 50% Inj) 0 ml IV STAT PRN; Protocol PRN Reason: Hyglycemia Protocol Ergocalciferol (Drisdol 50,000 Intl Units Cap) 1 cap PO Q7D [facility] Last Admin: 05/17/16 03:01 Dose: 1 cap Glucagon (Glucagen Diagnostic Kit) 0 mg IM STAT PRN; Protocol PRN Reason: Hypoglycemia Protocol Heparin Sodium (Porcine) (Heparin) 5,000 units SC Q12 [facility] PRN Reason: Protocol Last Admin: 05/16/16 20:30 Dose: 5,000 units Insulin Human Lispro (Humalog) 0 units SC ACHS [facility] PRN Reason: Protocol Last Admin: 05/16/16 21:46 Dose: Not Given Levothyroxine Sodium (Synthroid) 25 mcg PO DAILY [facility] Last Admin: 05/16/16 08:53 Dose: 25 mcg Vitamin B Complex/Vit C/Folic Acid (Nephro-Berkley) 1 tab PO DAILY [facility] - Labs Labs: 05/14/16 05:20 05/16/16 08:30 PT 11.7 SECONDS (9.6-11.2) H 05/11/16 18:21 INR 1.13 (0.92-1.08) H 05/11/16 18:21 APTT 28.0 SECONDS (23.3-32.5) 05/11/16 18:21 Attending/Attestation - Attestation I have personally seen and examined this patient.: Yes I have fully participated in the care of the patient.: Yes I have reviewed all pertinent clinical information, including history, physical exam and plan: Yes
--- NOTE | 2016-05-14 20:21 | CP.PCM.PN ---
Subjective - Date & Time of Evaluation Date of Evaluation: 05/14/16 Time of Evaluation: 15:00 - Subjective Subjective: SEEN ON RENAL F/U RENAL FUNCTION GETTING WORSE CASE D/W SON .. PT NEEDS HD CONSENT FROM SON OBTAINED S/P R I J V CATH BY IR WILL PROCEED WITH HD BECAUSE THE BLIZZARD TOMORROW ALL THE TEUSDAY PTS ARE BEEN DONE TODAY PT WAS BUMPED TO TOMORROW AM Objective - Vital Signs/Intake and Output Vital Signs (last 24 hours): Temp Pulse Resp BP Pulse Ox 98.1 F 113 H 20 138/88 93 L 05/14/16 16:44 05/14/16 16:44 05/14/16 16:44 05/14/16 16:44 05/14/16 16:44 Intake and Output: 05/14/16 05/15/16 18:59 06:59 Intake Total 450 Output Total 100 Balance 350 - Medications Medications: Current Medications Dextrose (Glutose 15) 0 gm PO ONCE PRN; Protocol PRN Reason: Hypoglycemia Protocol Dextrose (Dextrose 50% Inj) 0 ml IV STAT PRN; Protocol PRN Reason: Hyglycemia Protocol Glucagon (Glucagen Diagnostic Kit) 0 mg IM STAT PRN; Protocol PRN Reason: Hypoglycemia Protocol Heparin Sodium (Porcine) (Heparin) 5,000 units SC Q12 [facility] PRN Reason: Protocol Last Admin: 05/13/16 08:23 Dose: 5,000 units Insulin Human Lispro (Humalog) 0 units SC ACHS [facility] PRN Reason: Protocol Last Admin: 05/14/16 17:22 Dose: Not Given Levothyroxine Sodium (Synthroid) 25 mcg PO DAILY [facility] Last Admin: 05/14/16 09:00 Dose: Not Given - Labs Labs: 05/14/16 05:20 05/14/16 05:20 PT 11.7 SECONDS (9.6-11.2) H 05/11/16 18:21 INR 1.13 (0.92-1.08) H 05/11/16 18:21 APTT 28.0 SECONDS (23.3-32.5) 05/11/16 18:21 Assessment and Plan - Assessment and Plan (Free Text) Assessment: OLIGURIC SHRAVAN WILL PROCEED WITH HD FIRST HD WILL BE IN AM
--- NOTE | 2016-05-14 20:51 | PN ---
DATE: 05/14/2016 NEUROLOGICAL PROBLEM: Possible seizure, metabolic encephalopathy. VITAL SIGNS: Blood pressure 138/88, mean arterial pressure 104, respiratory rate 20, temperature 98. 1, pulse rate 113. NEUROLOGIC: The patient is arousable on tactile stimuli. The patient's eyes are open. Speech some one-word answers there. The rest of the examination is unchanged. WORKUP: Electroencephalogram was reviewed, shows bilateral delta mixed with theta activities noted. No paroxysmal activity is noted. RECOMMENDATIONS: Continue to hold the Keppra for now. If the patient shows any clinical findings of seizures, the patient may be treated with other medication. At this time, I would like to continue the present management to keep the blood pressure stable and correct electrolytes. Torito Moya MD cc: [id number] TT: 05/14/2016 20:50:39 Confirmation # [id number] Dictation # [id number]
--- NOTE | 2016-05-14 22:28 | EEG ---
DATE: 05/14/2016 This is a 16-channel electroencephalogram of awake and drowsy, lethargic adult. During the study, ph otic stimulation was performed, hyperventilation was not performed. The resting electroencephalogram consists of diffuse high amplitude 3-4-5 Hz delta mixed with theta a ctivities noted in bilateral cortical leads. This activity is continuously noted without any change in frequency and intensity. Some muscle artifact contaminated the background rhythm. Photic stimula tion did not evoke driving response noted at 2-20 Hz. IMPRESSION: This is abnormal electroencephalogram because of persistent slowing throughout the recor d suggestive of bilateral cerebral dysfunction. This is probably secondary to metabolic vascular or degenerative process. Please correlate the finding with the neurological and radiological studies. Torito Moya MD cc: [id number] TT: 05/14/2016 22:28:11 Confirmation # [id number] Dictation # [id number]
[2016-05-15] MEDS: Insulin Lispro (humaLOG) 100 Units/ml Inj SC SCH ×4 (06:59→21:22)
[2016-05-15 08:29] LABS: CALCIUM 8.3 mg/dL (8.4-10.2); POTASSIUM 3.9 MMOL/L (3.6-5.0)
[2016-05-15] MEDS: Levothyroxine 25 MCG TAB PO SCH (10:16)
--- NOTE | 2016-05-15 12:02 | CP.PCM.PN ---
Subjective - Date & Time of Evaluation Date of Evaluation: 05/15/16 Time of Evaluation: 07:45 - Subjective Subjective: - Pt was seen at bedside resting comfortably awake. She seemed less agitated then previous visits. Patient smiled during conversation. Urine marc:clear/ yellow colored urine (100ml) in 24 hours Dialysis will be done today. Objective - Vital Signs/Intake and Output Vital Signs (last 24 hours): Temp Pulse Resp BP Pulse Ox 98.5 F 93 H 18 148/64 98 05/15/16 09:00 05/15/16 09:00 05/15/16 09:00 05/15/16 09:00 05/15/16 09:00 - Medications Medications: Current Medications Dextrose (Glutose 15) 0 gm PO ONCE PRN; Protocol PRN Reason: Hypoglycemia Protocol Dextrose (Dextrose 50% Inj) 0 ml IV STAT PRN; Protocol PRN Reason: Hyglycemia Protocol Glucagon (Glucagen Diagnostic Kit) 0 mg IM STAT PRN; Protocol PRN Reason: Hypoglycemia Protocol Heparin Sodium (Porcine) (Heparin) 5,000 units SC Q12 [facility] PRN Reason: Protocol Last Admin: 05/13/16 08:23 Dose: 5,000 units Insulin Human Lispro (Humalog) 0 units SC ACHS [facility] PRN Reason: Protocol Last Admin: 05/15/16 11:28 Dose: 2 unit Levothyroxine Sodium (Synthroid) 25 mcg PO DAILY [facility] Last Admin: 05/15/16 10:16 Dose: 25 mcg - Labs Labs: 05/14/16 05:20 05/15/16 07:30 PT 11.7 SECONDS (9.6-11.2) H 05/11/16 18:21 INR 1.13 (0.92-1.08) H 05/11/16 18:21 APTT 28.0 SECONDS (23.3-32.5) 05/11/16 18:21 - Constitutional Appears: No Acute Distress, Chronically Ill - Head Exam Head Exam: ATRAUMATIC, NORMAL INSPECTION, NORMOCEPHALIC - Eye Exam Eye Exam: EOMI, Normal appearance - Respiratory Exam Respiratory Exam: Clear to Ausculation Bilateral, NORMAL BREATHING PATTERN - Cardiovascular Exam Cardiovascular Exam: REGULAR RHYTHM, +S1, +S2 - GI/Abdominal Exam GI & Abdominal Exam: Soft, Normal Bowel Sounds - Extremities Exam Extremities Exam: Pedal Edema Additional comments: 2+ pedal edema noted b/l - Neurological Exam Neurological Exam: Alert, Awake Assessment and Plan - Assessment and Plan (Free Text) Assessment: 80 yo female with pmhx of T2DM, anxiety, arthritis, CAD, COPD, depression, hypertension will be admitted for AMS, lethargy. 1)AMS, lethargy, multifactorial medication side effects, delirium -improving -vitals remain stable, afebrile -reviewed MRI, CT of head, no acute findings - treating the patient for UTI and cellulitis; no abx for now -monitor inpatient - HD scheduled for today - F/U EEG 2)Acute on chronic kidney failure, multifactorial, drug toxicity, fluid overload , cardiac etiology -BUN and creatine continue to increase BUN/Creatine :27/09 -Avoid nephrotoxic medications for now -monitor BUN/Cr in am -Demolition Specialist Dr Aguilera appreciated - C3, C4, Eosinophil in urine negative - HD scheduled for today 3)Pancreatic multi locular cystic mass, benign vs malignant -Evaluated by GI Dr Katz, no further work up since patient refuses it -reviewed CT abdomen/pelvis from 2015, 2017: increase in size of known multiocular cystic mass in the head of the pancreas. The differential considerations include serous cystadenoma, less likely mucinous cystadenoma given patients age, main or side duct PMN -monitor as outpatient 4)Cellulitis from last admission (Treated) -Improving -Held abx for now because of current acute symptoms -ID Dr Guzmán consult; discussed disease course via phone 5)UTI -completed course of cefepime for initial UTI on admission - Currently no antibiotic indicated as per ID - U/A from 05/11/16: showed yeast 10,000-50,000 possible contamination, no Rx as per ID currently 6)T2DM -held metformin -insulin sliding scale -monitor 7)hypertension -held home meds 8)COPD -monitor 9)depression -discontinued celexa 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 10)anxiety -Discontinued xanax during previous admission due to lethargy, hallucination episodes during last visit 11)hypothyroidism -repeat TSH normal limit -continue levothyroixine 12)seizure -dx during previous admission -reviewed EEG from 05/03/16; activities suggestive of epileptiform focus -held keppra for now; keppra 750mg po one dose given during [employer] D[employer] MIX[employer] as instructed per neurologist - F/U another EEG -monitor 13)prophylactic measures: -heparin 5000u sc q12
--- NOTE | 2016-05-15 15:12 | CP.PCM.PN ---
Subjective - Date & Time of Evaluation Date of Evaluation: 05/15/16 Time of Evaluation: 15:03 - Subjective Subjective: ID NOTE PATIENT SCHEDULED FOR HD TODAY ,CREATININE IS 7 HAVE ORDERED REPEAT URINEANALYSIS CONTINUE NO ANTIBIOTICS UNLESS POSITIVE CULTURES Objective - Vital Signs/Intake and Output Vital Signs (last 24 hours): Temp Pulse Resp BP Pulse Ox 98.7 F 95 H 18 162/70 H 99 05/15/16 12:18 05/15/16 12:18 05/15/16 12:18 05/15/16 12:18 05/15/16 12:18 - Medications Medications: Current Medications Dextrose (Glutose 15) 0 gm PO ONCE PRN; Protocol PRN Reason: Hypoglycemia Protocol Dextrose (Dextrose 50% Inj) 0 ml IV STAT PRN; Protocol PRN Reason: Hyglycemia Protocol Glucagon (Glucagen Diagnostic Kit) 0 mg IM STAT PRN; Protocol PRN Reason: Hypoglycemia Protocol Heparin Sodium (Porcine) (Heparin) 5,000 units SC Q12 [facility] PRN Reason: Protocol Last Admin: 05/13/16 08:23 Dose: 5,000 units Insulin Human Lispro (Humalog) 0 units SC ACHS [facility] PRN Reason: Protocol Last Admin: 05/15/16 11:28 Dose: 2 unit Levothyroxine Sodium (Synthroid) 25 mcg PO DAILY [facility] Last Admin: 05/15/16 10:16 Dose: 25 mcg - Labs Labs: 05/14/16 05:20 05/15/16 07:30 PT 11.7 SECONDS (9.6-11.2) H 05/11/16 18:21 INR 1.13 (0.92-1.08) H 05/11/16 18:21 APTT 28.0 SECONDS (23.3-32.5) 05/11/16 18:21
[2016-05-16] MEDS: Insulin Lispro (humaLOG) 100 Units/ml Inj SC SCH ×4 (06:39→21:46)
[2016-05-16 08:46] LABS: CALCIUM 8.4 mg/dL (8.4-10.2)
[2016-05-16] MEDS: Levothyroxine 25 MCG TAB PO SCH (08:53)
--- NOTE | 2016-05-16 09:15 | CP.PCM.PN ---
Subjective - Date & Time of Evaluation Date of Evaluation: 05/16/16 Time of Evaluation: 08:00 - Subjective Subjective: 80 YO F s/p dialysis was seen resting comfortably in bed. Her mental status seems much more improved then yesterday. She was was able to have a conversation , states she is doing well, just feels weak. PT states her appetite is depressed. Objective - Vital Signs/Intake and Output Vital Signs (last 24 hours): Temp Pulse Resp BP Pulse Ox 97.9 F 97 H 18 157/90 H 97 05/16/16 08:24 05/16/16 08:24 05/16/16 08:24 05/16/16 08:24 05/16/16 08:24 Intake and Output: 05/16/16 05/16/16 06:59 18:59 Output Total 50 Balance -50 - Medications Medications: Current Medications Dextrose (Glutose 15) 0 gm PO ONCE PRN; Protocol PRN Reason: Hypoglycemia Protocol Dextrose (Dextrose 50% Inj) 0 ml IV STAT PRN; Protocol PRN Reason: Hyglycemia Protocol Glucagon (Glucagen Diagnostic Kit) 0 mg IM STAT PRN; Protocol PRN Reason: Hypoglycemia Protocol Heparin Sodium (Porcine) (Heparin) 5,000 units SC Q12 [facility] PRN Reason: Protocol Last Admin: 05/16/16 08:53 Dose: 5,000 units Insulin Human Lispro (Humalog) 0 units SC ACHS [facility] PRN Reason: Protocol Last Admin: 05/16/16 06:39 Dose: Not Given Levothyroxine Sodium (Synthroid) 25 mcg PO DAILY [facility] Last Admin: 05/16/16 08:53 Dose: 25 mcg - Labs Labs: 05/14/16 05:20 05/16/16 08:30 PT 11.7 SECONDS (9.6-11.2) H 05/11/16 18:21 INR 1.13 (0.92-1.08) H 05/11/16 18:21 APTT 28.0 SECONDS (23.3-32.5) 05/11/16 18:21 - Constitutional Appears: No Acute Distress - Head Exam Head Exam: NORMAL INSPECTION - Respiratory Exam Respiratory Exam: Clear to Ausculation Bilateral, NORMAL BREATHING PATTERN Additional comments: Decreased breath sounds b/l - Cardiovascular Exam Cardiovascular Exam: REGULAR RHYTHM, +S1, +S2 - GI/Abdominal Exam GI & Abdominal Exam: Soft, Normal Bowel Sounds - Extremities Exam Additional comments: +2 b/l tibial pitting edema - Neurological Exam Neurological Exam: Alert, Awake, CN II-XII Intact - Psychiatric Exam Psychiatric exam: Normal Affect Assessment and Plan - Assessment and Plan (Free Text) Assessment: 80 yo female with pmhx of T2DM, anxiety, arthritis, CAD, COPD, depression, hypertension will be admitted for AMS, lethargy. 1)AMS, lethargy, multifactorial medication side effects, delirium -improving -vitals remain stable, afebrile -reviewed MRI, CT of head, no acute findings - treating the patient for UTI and cellulitis; no abx for now -monitor inpatient - HD was done , second dialysis will be done tomorrow as per nurse 2)Acute on chronic kidney failure, multifactorial, drug toxicity, fluid overload , cardiac etiology -BUN and creatine decrease :BUN/Creatine :21/5.8 -Avoid nephrotoxic medications for now -monitor BUN/Cr in am -Pharmaceutical Process Engineer Dr Patterson appreciated - Next HD scheduled for tomorrow as per nurse 3)Pancreatic multi locular cystic mass, benign vs malignant -Evaluated by GI Dr Katz, no further work up since patient refuses it -reviewed CT abdomen/pelvis from 2015, 2017: increase in size of known multiocular cystic mass in the head of the pancreas. The differential considerations include serous cystadenoma, less likely mucinous cystadenoma given patients age, main or side duct PMN -monitor as outpatient 4)Cellulitis from last admission (Treated) -Improving -Held abx for now because of current acute symptoms -ID Dr Guzmán consult; discussed disease course via phone 5)UTI -completed course of cefepime for initial UTI on admission - Currently no antibiotic indicated as per ID - U/A from 05/11/16: showed yeast 10,000-50,000 possible contamination, no Rx as per ID currently 6)T2DM -held metformin -insulin sliding scale -monitor 7)hypertension -held home meds 8)COPD -monitor 9)depression -discontinued celexa 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 10)anxiety -Discontinued xanax during previous admission due to lethargy, hallucination episodes during last visit 11)hypothyroidism -repeat TSH normal limit -continue levothyroixine 12)seizure -dx during previous admission -reviewed EEG from 05/03/16; activities suggestive of epileptiform focus -EEG 05/13/16: Abn EEG persistent slowing suggestive of b/l cerebral dysfunction , most likelt secondary to metabolic vascular or degenerative process -held keppra for now; keppra 750mg po one dose given during [employer] as instructed per neurologist -monitor 13)prophylactic measures: -heparin 5000u sc q12
[2016-05-17] MEDS: Ergocalciferol 50,000 Intl Units Cap PO SCH (03:01)
--- NOTE | 2016-05-17 03:02 | CP.PCM.PN ---
Subjective - Date & Time of Evaluation Date of Evaluation: 05/16/16 Time of Evaluation: 13:00 - Subjective Subjective: SEEN ON RENAL F/U SEEN ON HD .. HER 2ND HD LOOKS BETTER ALL ABOVE EMR REVIEWED Objective - Vital Signs/Intake and Output Vital Signs (last 24 hours): Temp Pulse Resp BP Pulse Ox 98.4 F 93 H 22 146/63 99 05/16/16 16:00 05/16/16 16:00 05/16/16 16:00 05/16/16 16:00 05/16/16 16:00 - Medications Medications: Current Medications Ascorbic Acid (Vitamin C 500 Mg Tab) 500 mg PO DAILY [facility] Dextrose (Glutose 15) 0 gm PO ONCE PRN; Protocol PRN Reason: Hypoglycemia Protocol Dextrose (Dextrose 50% Inj) 0 ml IV STAT PRN; Protocol PRN Reason: Hyglycemia Protocol Ergocalciferol (Drisdol 50,000 Intl Units Cap) 1 cap PO Q7D [facility] Glucagon (Glucagen Diagnostic Kit) 0 mg IM STAT PRN; Protocol PRN Reason: Hypoglycemia Protocol Heparin Sodium (Porcine) (Heparin) 5,000 units SC Q12 [facility] PRN Reason: Protocol Last Admin: 05/16/16 20:30 Dose: 5,000 units Insulin Human Lispro (Humalog) 0 units SC ACHS [facility] PRN Reason: Protocol Last Admin: 05/16/16 21:46 Dose: Not Given Levothyroxine Sodium (Synthroid) 25 mcg PO DAILY [facility] Last Admin: 05/16/16 08:53 Dose: 25 mcg Vitamin B Complex/Vit C/Folic Acid (Nephro-Berkley) 1 tab PO DAILY [facility] - Labs Labs: 05/14/16 05:20 05/16/16 08:30 PT 11.7 SECONDS (9.6-11.2) H 05/11/16 18:21 INR 1.13 (0.92-1.08) H 05/11/16 18:21 APTT 28.0 SECONDS (23.3-32.5) 05/11/16 18:21 Assessment and Plan - Assessment and Plan (Free Text) Assessment: SHRAVAN ON HD C/O CURRENT CARE D/C IVF
[2016-05-17 06:35] LABS: POTASSIUM 4.4 MMOL/L (3.6-5.0)
[2016-05-17 06:38] LABS: CALCIUM 8.2 mg/dL (8.4-10.2)
[2016-05-17] MEDS: Insulin Lispro (humaLOG) 100 Units/ml Inj SC SCH ×4 (07:14→21:00)
[2016-05-17] MEDS: Levothyroxine 25 MCG TAB PO SCH (08:22)
[2016-05-17] MEDS: Multivitamin Vitamin B Complex (Nephro-Vite) Tab PO SCH (08:23)
--- NOTE | 2016-05-17 10:58 | CP.PCM.PN ---
<Giacomo Guerrero - Last Filed: 05/17/16 17:12> Subjective - Date & Time of Evaluation Date of Evaluation: 05/17/16 Time of Evaluation: 07:35 - Subjective Subjective: 80 YO F was seen resting comfortably in bed next to homemaker. Pt was awake and seemed comfortable. She was able to have a conversation and was AAOx3. Denies N/V/D/ Chest pain/ SOB. PT has been eating and had a bowl movement yesterday. Pt is on having second HD today Objective - Vital Signs/Intake and Output Vital Signs (last 24 hours): Temp Pulse Resp BP Pulse Ox 98.7 F 99 H 20 156/74 H 98 05/17/16 07:57 05/17/16 07:57 05/17/16 07:57 05/17/16 07:57 05/17/16 07:57 - Medications Medications: Current Medications Ascorbic Acid (Vitamin C 500 Mg Tab) 500 mg PO DAILY [facility] Last Admin: 05/17/16 09:56 Dose: 500 mg Dextrose (Glutose 15) 0 gm PO ONCE PRN; Protocol PRN Reason: Hypoglycemia Protocol Dextrose (Dextrose 50% Inj) 0 ml IV STAT PRN; Protocol PRN Reason: Hyglycemia Protocol Ergocalciferol (Drisdol 50,000 Intl Units Cap) 1 cap PO Q7D [facility] Last Admin: 05/17/16 03:01 Dose: 1 cap Glucagon (Glucagen Diagnostic Kit) 0 mg IM STAT PRN; Protocol PRN Reason: Hypoglycemia Protocol Heparin Sodium (Porcine) (Heparin) 5,000 units SC Q12 [facility] PRN Reason: Protocol Last Admin: 05/17/16 08:23 Dose: 5,000 units Insulin Human Lispro (Humalog) 0 units SC ACHS [facility] PRN Reason: Protocol Last Admin: 05/17/16 07:14 Dose: Not Given Levothyroxine Sodium (Synthroid) 25 mcg PO DAILY [facility] Last Admin: 05/17/16 08:22 Dose: 25 mcg Vitamin B Complex/Vit C/Folic Acid (Nephro-Berkley) 1 tab PO DAILY [facility] Last Admin: 05/17/16 08:23 Dose: 1 tab - Labs Labs: 05/14/16 05:20 05/17/16 05:50 PT 11.7 SECONDS (9.6-11.2) H 05/11/16 18:21 INR 1.13 (0.92-1.08) H 05/11/16 18:21 APTT 28.0 SECONDS (23.3-32.5) 05/11/16 18:21 - Constitutional Appears: No Acute Distress - Head Exam Head Exam: ATRAUMATIC, NORMAL INSPECTION, NORMOCEPHALIC - Eye Exam Eye Exam: Normal appearance Pupil Exam: NORMAL ACCOMODATION - Respiratory Exam Respiratory Exam: Clear to Ausculation Bilateral, NORMAL BREATHING PATTERN. absent: Wheezes - Cardiovascular Exam Cardiovascular Exam: REGULAR RHYTHM, +S1, +S2 - GI/Abdominal Exam GI & Abdominal Exam: Soft. absent: Tenderness - Extremities Exam Extremities Exam: Pedal Edema Additional comments: +2 pitting edema - Neurological Exam Neurological Exam: Alert, Awake (PT responds to verbal stimuli, is able to speak. But is at baseline dementia.), CN II-XII Intact, Oriented x3 Assessment and Plan - Assessment and Plan (Free Text) Assessment: 80 yo female with pmhx of T2DM, anxiety, arthritis, CAD, COPD, depression, hypertension will be admitted for AMS, lethargy. 1)AMS, lethargy, multifactorial medication side effects, delirium -improving -vitals remain stable, afebrile -reviewed MRI, CT of head, no acute findings - treating the patient for UTI and cellulitis; no abx for now -monitor inpatient -HD will be done today 2)Acute on chronic kidney failure, multifactorial, drug toxicity, fluid overload , cardiac etiology -BUN and creatine decrease :BUN/Creatine :21/5.8 -Avoid nephrotoxic medications for now -monitor BUN/Cr in am -Coal Weigher Dr Ptaterson appreciated - HD scheduled for today - F/U bmp 3)Pancreatic multi locular cystic mass, benign vs malignant -Evaluated by GI Dr Katz, no further work up since patient refuses it -reviewed CT abdomen/pelvis from 2015, 2017: increase in size of known multiocular cystic mass in the head of the pancreas. The differential considerations include serous cystadenoma, less likely mucinous cystadenoma given patients age, main or side duct PMN -monitor as outpatient 4)Cellulitis from last admission (Treated) -Improving -Held abx for now because of current acute symptoms -ID Dr Guzmán consult; discussed disease course via phone 5)UTI -completed course of cefepime for initial UTI on admission - Currently no antibiotic indicated as per ID - U/A from 05/11/16: showed yeast 10,000-50,000 possible contamination, no Rx as per ID currently 6)T2DM -held metformin -insulin sliding scale -monitor 7)hypertension -held home meds 8)COPD -monitor 9)depression -discontinued celexa during [employer] RO[employer] - Psych consult appreciated: Will hold medication untill renal function gets better. 10)anxiety -Discontinued xanax during previous admission due to lethargy, hallucination episodes during last visit 11)hypothyroidism -repeat TSH normal limit -continue levothyroixine 12)seizure -dx during previous admission -reviewed EEG from 05/03/16; activities suggestive of epileptiform focus -EEG 05/13/16: Abn EEG persistent slowing suggestive of b/l cerebral dysfunction , most likelt secondary to metabolic vascular or degenerative process -held keppra for now; keppra 750mg po one dose given during [employer] as instructed per neurologist -monitor 13)prophylactic measures: -heparin 5000u sc q12 <Ta Lipscomb - Last Filed: 05/18/16 06:53> Objective - Vital Signs/Intake and Output Vital Signs (last 24 hours): Temp Pulse Resp BP Pulse Ox 98.7 F 91 H 20 157/64 H 98 05/17/16 21:00 05/17/16 21:00 05/17/16 21:00 05/17/16 21:00 05/17/16 21:00 - Medications Medications: Current Medications Ascorbic Acid (Vitamin C 500 Mg Tab) 500 mg PO DAILY [facility] Last Admin: 05/17/16 09:56 Dose: 500 mg Dextrose (Glutose 15) 0 gm PO ONCE PRN; Protocol PRN Reason: Hypoglycemia Protocol Dextrose (Dextrose 50% Inj) 0 ml IV STAT PRN; Protocol PRN Reason: Hyglycemia Protocol Ergocalciferol (Drisdol 50,000 Intl Units Cap) 1 cap PO Q7D [facility] Last Admin: 05/17/16 03:01 Dose: 1 cap Glucagon (Glucagen Diagnostic Kit) 0 mg IM STAT PRN; Protocol PRN Reason: Hypoglycemia Protocol Heparin Sodium (Porcine) (Heparin) 5,000 units SC Q12 [facility] PRN Reason: Protocol Last Admin: 05/17/16 20:54 Dose: 5,000 units Insulin Human Lispro (Humalog) 0 units SC ACHS [facility] PRN Reason: Protocol Last Admin: 05/17/16 21:00 Dose: Not Given Levothyroxine Sodium (Synthroid) 25 mcg PO DAILY [facility] Last Admin: 05/17/16 08:22 Dose: 25 mcg Vitamin B Complex/Vit C/Folic Acid (Nephro-Berkley) 1 tab PO DAILY [facility] Last Admin: 05/17/16 08:23 Dose: 1 tab - Labs Labs: 05/14/16 05:20 05/17/16 05:50 PT 11.7 SECONDS (9.6-11.2) H 05/11/16 18:21 INR 1.13 (0.92-1.08) H 05/11/16 18:21 APTT 28.0 SECONDS (23.3-32.5) 05/11/16 18:21 Attending/Attestation - Attestation I have personally seen and examined this patient.: Yes I have fully participated in the care of the patient.: Yes I have reviewed all pertinent clinical information, including history, physical exam and plan: Yes
--- NOTE | 2016-05-17 20:25 | CP.PCM.PN ---
Subjective - Date & Time of Evaluation Date of Evaluation: 05/17/16 Time of Evaluation: 15:00 - Subjective Subjective: SEEN ON RENAL F/U DAUGHTER ON BED SIDE .. CASE D/W HER PT IS MORE AWAKE AND INTERACTIVE THAN BEFORE HD TO START SHORTLY .. HD ORDERS GIVEN AND D/W HD - RN VERY POOR APPETITE NOTED Objective - Vital Signs/Intake and Output Vital Signs (last 24 hours): Temp Pulse Resp BP Pulse Ox 98.3 F 94 H 20 138/61 98 05/17/16 17:00 05/17/16 16:32 05/17/16 16:32 05/17/16 16:32 05/17/16 16:32 - Medications Medications: Current Medications Ascorbic Acid (Vitamin C 500 Mg Tab) 500 mg PO DAILY [facility] Last Admin: 05/17/16 09:56 Dose: 500 mg Dextrose (Glutose 15) 0 gm PO ONCE PRN; Protocol PRN Reason: Hypoglycemia Protocol Dextrose (Dextrose 50% Inj) 0 ml IV STAT PRN; Protocol PRN Reason: Hyglycemia Protocol Ergocalciferol (Drisdol 50,000 Intl Units Cap) 1 cap PO Q7D [facility] Last Admin: 05/17/16 03:01 Dose: 1 cap Glucagon (Glucagen Diagnostic Kit) 0 mg IM STAT PRN; Protocol PRN Reason: Hypoglycemia Protocol Heparin Sodium (Porcine) (Heparin) 5,000 units SC Q12 [facility] PRN Reason: Protocol Last Admin: 05/17/16 08:23 Dose: 5,000 units Insulin Human Lispro (Humalog) 0 units SC ACHS [facility] PRN Reason: Protocol Last Admin: 05/17/16 17:01 Dose: Not Given Levothyroxine Sodium (Synthroid) 25 mcg PO DAILY [facility] Last Admin: 05/17/16 08:22 Dose: 25 mcg Vitamin B Complex/Vit C/Folic Acid (Nephro-Berkley) 1 tab PO DAILY [facility] Last Admin: 05/17/16 08:23 Dose: 1 tab - Labs Labs: 05/14/16 05:20 05/17/16 05:50 PT 11.7 SECONDS (9.6-11.2) H 05/11/16 18:21 INR 1.13 (0.92-1.08) H 05/11/16 18:21 APTT 28.0 SECONDS (23.3-32.5) 05/11/16 18:21 Assessment and Plan - Assessment and Plan (Free Text) Assessment: SHRAVAN .. ON HER 2ND HD ..NEXT HD SAT MULTIPLE CO MORBIDITIES C/O CURRENT CARE
[2016-05-18] MEDS: Insulin Lispro (humaLOG) 100 Units/ml Inj SC SCH ×4 (07:01→21:01)
[2016-05-18 07:20] LABS: CALCIUM 8.1 mg/dL (8.4-10.2)
--- NOTE | 2016-05-18 08:41 | CP.PCM.PN ---
<Giacomo Guerrero - Last Filed: 05/18/16 12:23> Subjective - Date & Time of Evaluation Date of Evaluation: 05/18/16 Time of Evaluation: 07:15 - Subjective Subjective: 80 YO F seen resting comfortably in bed. Denies any overnight activities. Pt was easy to awaken and appeared calm states she is feeling well As per nurse pt had two loose bowl moments over night. Objective - Vital Signs/Intake and Output Vital Signs (last 24 hours): Temp Pulse Resp BP Pulse Ox 98.8 F 92 H 20 146/73 99 05/18/16 08:06 05/18/16 08:06 05/18/16 08:06 05/18/16 08:06 05/18/16 08:06 Intake and Output: 05/18/16 05/18/16 06:59 18:59 Intake Total 240 Output Total 100 Balance 140 - Medications Medications: Current Medications Ascorbic Acid (Vitamin C 500 Mg Tab) 500 mg PO DAILY [facility] Last Admin: 05/17/16 09:56 Dose: 500 mg Dextrose (Glutose 15) 0 gm PO ONCE PRN; Protocol PRN Reason: Hypoglycemia Protocol Dextrose (Dextrose 50% Inj) 0 ml IV STAT PRN; Protocol PRN Reason: Hyglycemia Protocol Ergocalciferol (Drisdol 50,000 Intl Units Cap) 1 cap PO Q7D [facility] Last Admin: 05/17/16 03:01 Dose: 1 cap Glucagon (Glucagen Diagnostic Kit) 0 mg IM STAT PRN; Protocol PRN Reason: Hypoglycemia Protocol Heparin Sodium (Porcine) (Heparin) 5,000 units SC Q12 [facility] PRN Reason: Protocol Last Admin: 05/17/16 20:54 Dose: 5,000 units Insulin Human Lispro (Humalog) 0 units SC ACHS [facility] PRN Reason: Protocol Last Admin: 05/18/16 07:01 Dose: Not Given Levothyroxine Sodium (Synthroid) 25 mcg PO DAILY [facility] Last Admin: 05/17/16 08:22 Dose: 25 mcg Vitamin B Complex/Vit C/Folic Acid (Nephro-Berkley) 1 tab PO DAILY [facility] Last Admin: 05/17/16 08:23 Dose: 1 tab - Labs Labs: 05/14/16 05:20 05/18/16 06:15 PT 11.7 SECONDS (9.6-11.2) H 05/11/16 18:21 INR 1.13 (0.92-1.08) H 05/11/16 18:21 APTT 28.0 SECONDS (23.3-32.5) 05/11/16 18:21 - Constitutional Appears: No Acute Distress - Head Exam Head Exam: ATRAUMATIC, NORMAL INSPECTION, NORMOCEPHALIC - Respiratory Exam Respiratory Exam: Clear to Ausculation Bilateral, NORMAL BREATHING PATTERN Additional comments: Slightly decreaseed breath sounds b/l - Cardiovascular Exam Cardiovascular Exam: REGULAR RHYTHM, +S1, +S2 - GI/Abdominal Exam GI & Abdominal Exam: Soft, Normal Bowel Sounds. absent: Tenderness - Extremities Exam Extremities Exam: Pedal Edema (2+ tibial edema) - Neurological Exam Neurological Exam: Alert, Awake Assessment and Plan - Assessment and Plan (Free Text) Assessment: Assessment: 80 yo female with pmhx of T2DM, anxiety, arthritis, CAD, COPD, depression, hypertension will be admitted for AMS, lethargy. 1)AMS, lethargy, multifactorial medication side effects, delirium -improving -vitals remain stable, afebrile -reviewed MRI, CT of head, no acute findings - treating the patient for UTI and cellulitis; no abx for now -monitor inpatient -Hemodialysis was done yesterday 2)Acute on chronic kidney failure, multifactorial, drug toxicity, fluid overload , cardiac etiology -BUN and creatine trending down :BUN/Creatine :21/5.8. BUN/Creatine-> 18/4.9 -Avoid nephrotoxic medications for now -monitor BUN/Cr -Wearing Apparel Presser Dr Patterson appreciated - Next HD: on Sat 3) Acute onset of Diarrhea - Ordered C diff F/U - Stool leuckocytes F/U 3)Pancreatic multi locular cystic mass, benign vs malignant -Evaluated by GI Dr Katz, no further work up since patient refuses it -reviewed CT abdomen/pelvis from 2015, 2017: increase in size of known multiocular cystic mass in the head of the pancreas. The differential considerations include serous cystadenoma, less likely mucinous cystadenoma given patients age, main or side duct PMN -monitor as outpatient 4)Cellulitis from last admission (Treated) -Improving -Held abx for now because of current acute symptoms -ID Dr Guzmán consult; discussed disease course via phone 5)UTI -completed course of cefepime for initial UTI on admission - Currently no antibiotic indicated as per ID - U/A from 05/11/16: showed yeast 10,000-50,000 possible contamination, no Rx as per ID currently 6)T2DM -held metformin -insulin sliding scale -monitor 7)hypertension -held home meds 8)COPD -monitor 9)depression -discontinued celexa 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 10)anxiety -Discontinued xanax during previous admission due to lethargy, hallucination episodes during last visit 11)hypothyroidism -repeat TSH normal limit -continue levothyroixine 12)seizure -dx during previous admission -reviewed EEG from 05/03/16; activities suggestive of epileptiform focus -EEG 05/13/16: Abn EEG persistent slowing suggestive of b/l cerebral dysfunction , most likelt secondary to metabolic vascular or degenerative process -held keppra for now; keppra 750mg po one dose given during [employer]NA[employer]ST as instructed per neurologist -monitor 13)prophylactic measures: -heparin 5000u sc q12 <Ta Lipscomb - Last Filed: 05/21/16 06:44> Objective - Vital Signs/Intake and Output Vital Signs (last 24 hours): Temp Pulse Resp BP Pulse Ox 99 F 99 H 17 148/77 99 05/20/16 22:05 05/20/16 22:05 05/20/16 22:05 05/20/16 22:05 05/20/16 22:05 - Medications Medications: Current Medications Ascorbic Acid (Vitamin C 500 Mg Tab) 500 mg PO DAILY [facility] Last Admin: 05/20/16 08:28 Dose: 500 mg Dextrose (Glutose 15) 0 gm PO ONCE PRN; Protocol PRN Reason: Hypoglycemia Protocol Dextrose (Dextrose 50% Inj) 0 ml IV STAT PRN; Protocol PRN Reason: Hyglycemia Protocol Ergocalciferol (Drisdol 50,000 Intl Units Cap) 1 cap PO Q7D [facility] Last Admin: 05/17/16 03:01 Dose: 1 cap Glucagon (Glucagen Diagnostic Kit) 0 mg IM STAT PRN; Protocol PRN Reason: Hypoglycemia Protocol Heparin Sodium (Porcine) (Heparin) 5,000 units SC Q12 [facility] PRN Reason: Protocol Last Admin: 05/20/16 21:03 Dose: 5,000 units Heparin Sodium (Porcine) (Heparin) 2,000 units IVP TTS [facility] PRN Reason: Protocol Stop: 05/26/16 23:59 Last Admin: 05/19/16 12:40 Dose: 2,000 units Insulin Human Lispro (Humalog) 0 units SC ACHS [facility] PRN Reason: Protocol Last Admin: 05/20/16 22:43 Dose: Not Given Levothyroxine Sodium (Synthroid) 25 mcg PO DAILY@0630 [facility] Last Admin: 05/20/16 05:33 Dose: 25 mcg Vitamin B Complex/Vit C/Folic Acid (Nephro-Berkley) 1 tab PO DAILY [facility] Last Admin: 05/20/16 08:28 Dose: 1 tab - Labs Labs: 05/18/16 20:16 05/20/16 09:45 PT 11.7 SECONDS (9.6-11.2) H 05/11/16 18:21 INR 1.13 (0.92-1.08) H 05/11/16 18:21 APTT 28.0 SECONDS (23.3-32.5) 05/11/16 18:21 Attending/Attestation - Attestation I have personally seen and examined this patient.: Yes I have fully participated in the care of the patient.: Yes I have reviewed all pertinent clinical information, including history, physical exam and plan: Yes
[2016-05-18] MEDS: Levothyroxine 25 MCG TAB PO SCH (09:22)
[2016-05-18] MEDS: Multivitamin Vitamin B Complex (Nephro-Vite) Tab PO SCH (09:22)
[2016-05-18 09:45] LABS: HEMATOCRIT 32.3 % (34.0-47.0); MEAN CELL VOLUME 76.8 fl (81.0-99.0); MEAN CORPUSCULAR HEMOGLOBIN 23.4 pg (27.0-31.0); MEAN CORPUSCULAR HGB CONC 30.5 g/dL (33.0-37.0); RED CELL DISTRIBUTION WIDTH 18.6 % (11.5-14.5); WHITE BLOOD COUNT 11.8 K/uL (4.8-10.8)
[2016-05-18 09:56] LABS: ALB/GLOB RATIO 0.8 (1.0-2.1); BILIRUBIN,TOTAL 0.4 mg/dl (0.2-1.3); TOTAL PROTEIN 5.6 G/DL (6.3-8.2)
[2016-05-18 12:52] LABS: C DIFF TOXIN A B NEGATIVE (NEGATIVE)
--- NOTE | 2016-05-18 16:31 | CP.PCM.PN ---
Subjective - Date & Time of Evaluation Date of Evaluation: 05/18/16 Time of Evaluation: 16:15 - Subjective Subjective: ID NOTE HAS SECOND POSITIVE URINE CULTURE FOR YEAST WILL RX 3 DAYS WEEKLY C DIFLUCAN CREATININE :4.9 WBC:11.8 THAT IS UP FROM 9.8 Objective - Vital Signs/Intake and Output Vital Signs (last 24 hours): Temp Pulse Resp BP Pulse Ox 99.2 F 98 H 20 144/79 100 05/18/16 15:58 05/18/16 15:58 05/18/16 15:58 05/18/16 15:58 05/18/16 15:58 Intake and Output: 05/18/16 05/18/16 06:59 18:59 Intake Total 240 Output Total 100 Balance 140 - Medications Medications: Current Medications Ascorbic Acid (Vitamin C 500 Mg Tab) 500 mg PO DAILY [facility] Last Admin: 05/18/16 09:22 Dose: 500 mg Dextrose (Glutose 15) 0 gm PO ONCE PRN; Protocol PRN Reason: Hypoglycemia Protocol Dextrose (Dextrose 50% Inj) 0 ml IV STAT PRN; Protocol PRN Reason: Hyglycemia Protocol Ergocalciferol (Drisdol 50,000 Intl Units Cap) 1 cap PO Q7D [facility] Last Admin: 05/17/16 03:01 Dose: 1 cap Fluconazole (Diflucan) 100 mg PO TTS [facility] Glucagon (Glucagen Diagnostic Kit) 0 mg IM STAT PRN; Protocol PRN Reason: Hypoglycemia Protocol Heparin Sodium (Porcine) (Heparin) 5,000 units SC Q12 [facility] PRN Reason: Protocol Last Admin: 05/18/16 09:22 Dose: 5,000 units Insulin Human Lispro (Humalog) 0 units SC ACHS [facility] PRN Reason: Protocol Last Admin: 05/18/16 12:11 Dose: Not Given Levothyroxine Sodium (Synthroid) 25 mcg PO DAILY [facility] Last Admin: 05/18/16 09:22 Dose: 25 mcg Vitamin B Complex/Vit C/Folic Acid (Nephro-Berkley) 1 tab PO DAILY [facility] Last Admin: 05/18/16 09:22 Dose: 1 tab - Labs Labs: 05/18/16 09:30 05/18/16 06:15 PT 11.7 SECONDS (9.6-11.2) H 05/11/16 18:21 INR 1.13 (0.92-1.08) H 05/11/16 18:21 APTT 28.0 SECONDS (23.3-32.5) 05/11/16 18:21
--- NOTE | 2016-05-18 19:12 | CP.PCM.PN ---
Subjective - Date & Time of Evaluation Date of Evaluation: 05/18/16 Time of Evaluation: 15:00 - Subjective Subjective: SEEN O RENAL F/U RECIEVED HER 2ND HD YESTERDAY GETTING HER 3RD HD ON SAT APEARS AND FEELS IMPROVED Objective - Vital Signs/Intake and Output Vital Signs (last 24 hours): Temp Pulse Resp BP Pulse Ox 99.2 F 98 H 20 144/79 100 05/18/16 15:58 05/18/16 15:58 05/18/16 15:58 05/18/16 15:58 05/18/16 15:58 - Medications Medications: Current Medications Ascorbic Acid (Vitamin C 500 Mg Tab) 500 mg PO DAILY [facility] Last Admin: 05/18/16 09:22 Dose: 500 mg Dextrose (Glutose 15) 0 gm PO ONCE PRN; Protocol PRN Reason: Hypoglycemia Protocol Dextrose (Dextrose 50% Inj) 0 ml IV STAT PRN; Protocol PRN Reason: Hyglycemia Protocol Ergocalciferol (Drisdol 50,000 Intl Units Cap) 1 cap PO Q7D [facility] Last Admin: 05/17/16 03:01 Dose: 1 cap Fluconazole (Diflucan) 100 mg PO TTS [facility] Glucagon (Glucagen Diagnostic Kit) 0 mg IM STAT PRN; Protocol PRN Reason: Hypoglycemia Protocol Heparin Sodium (Porcine) (Heparin) 5,000 units SC Q12 [facility] PRN Reason: Protocol Last Admin: 05/18/16 09:22 Dose: 5,000 units Insulin Human Lispro (Humalog) 0 units SC ACHS [facility] PRN Reason: Protocol Last Admin: 05/18/16 17:06 Dose: Not Given Levothyroxine Sodium (Synthroid) 25 mcg PO DAILY [facility] Last Admin: 05/18/16 09:22 Dose: 25 mcg Vitamin B Complex/Vit C/Folic Acid (Nephro-Berkley) 1 tab PO DAILY [facility] Last Admin: 05/18/16 09:22 Dose: 1 tab - Labs Labs: 05/18/16 09:30 05/18/16 06:15 PT 11.7 SECONDS (9.6-11.2) H 05/11/16 18:21 INR 1.13 (0.92-1.08) H 05/11/16 18:21 APTT 28.0 SECONDS (23.3-32.5) 05/11/16 18:21 Assessment and Plan - Assessment and Plan (Free Text) Assessment: SHRAVAN .. ON HD TTS C/O CURRENT CARE
--- NOTE | 2016-05-18 20:02 | CP.PCM.PN ---
Subjective - Date & Time of Evaluation Date of Evaluation: 05/18/16 Time of Evaluation: 19:51 - Subjective Subjective: INTERIM EVENT PAGED BY RN DUE TO FEVER OF 101.5 Patient seen and evaluated at bedside. Patient's family at bedside. Family states patient had not been complaining though she did feel warm. Denies cough, sob, chest pain, abdominal pain, chills. Patient has been treated earlier in admission for UTI. Justin was discontinued this morning. No other complaints at this time. Family does state that a member of family had been coming in with cold-like symptoms in the past few days. Gen: appears comfortable, NAD Head: normocephalic Heart: RRR, S1/S1 present Lungs: CTABL, no wheezing/rales appreciated Abdomen: Soft, mildly distended, non-tender, normal bowel sounds present Extremities: 2+ edema bilaterally A/P: 80 yo female with PMHx of T2DM, anxiety, arthritis, CAD, COPD, depression, hypertension admitted for AMS, lethargy, treated for UTI, found to be in renal failure with new-onset fever. C.diff was negative. May be due to yeast in urine (started on diflucan) or viral illness transmitted by family member, though will rule out other sources. -Blood culture stat -Urine culture stat via straight cath -UA -Tylenol 650mg stat -CXR stat -CBC/BMP stat -Continue to monitor, if persists without known source consider other sources including central line Objective - Vital Signs/Intake and Output Vital Signs (last 24 hours): Temp Pulse Resp BP Pulse Ox 101.5 F H 104 H 20 154/78 H 100 05/18/16 19:42 05/18/16 19:42 05/18/16 19:42 05/18/16 19:42 05/18/16 19:42 - Medications Medications: Current Medications Ascorbic Acid (Vitamin C 500 Mg Tab) 500 mg PO DAILY [facility] Last Admin: 05/18/16 09:22 Dose: 500 mg Dextrose (Glutose 15) 0 gm PO ONCE PRN; Protocol PRN Reason: Hypoglycemia Protocol Dextrose (Dextrose 50% Inj) 0 ml IV STAT PRN; Protocol PRN Reason: Hyglycemia Protocol Ergocalciferol (Drisdol 50,000 Intl Units Cap) 1 cap PO Q7D [facility] Last Admin: 05/17/16 03:01 Dose: 1 cap Fluconazole (Diflucan) 100 mg PO TTS [facility] Glucagon (Glucagen Diagnostic Kit) 0 mg IM STAT PRN; Protocol PRN Reason: Hypoglycemia Protocol Heparin Sodium (Porcine) (Heparin) 5,000 units SC Q12 [facility] PRN Reason: Protocol Last Admin: 05/18/16 09:22 Dose: 5,000 units Insulin Human Lispro (Humalog) 0 units SC ACHS [facility] PRN Reason: Protocol Last Admin: 05/18/16 17:06 Dose: Not Given Levothyroxine Sodium (Synthroid) 25 mcg PO DAILY [facility] Last Admin: 05/18/16 09:22 Dose: 25 mcg Vitamin B Complex/Vit C/Folic Acid (Nephro-Berkley) 1 tab PO DAILY [facility] Last Admin: 05/18/16 09:22 Dose: 1 tab - Labs Labs: 05/18/16 09:30 05/18/16 06:15 PT 11.7 SECONDS (9.6-11.2) H 05/11/16 18:21 INR 1.13 (0.92-1.08) H 05/11/16 18:21 APTT 28.0 SECONDS (23.3-32.5) 05/11/16 18:21
[2016-05-18 20:19] LABS: BASO # 0.1 K/uL (0.0-0.2); BASO % 1.2 % (0.0-2.0); EOS # 0.6 K/uL (0.0-0.7); EOS % 5.2 % (0.0-4.0); HEMATOCRIT 31.4 % (34.0-47.0); LYMPH # 2.4 K/uL (1.0-4.3); LYMPH % 20.8 % (20.0-40.0); MEAN CELL VOLUME 75.8 fl (81.0-99.0); MEAN CORPUSCULAR HEMOGLOBIN 23.2 pg (27.0-31.0); MEAN CORPUSCULAR HGB CONC 30.6 g/dL (33.0-37.0); MEAN PLATELET VOLUME 7.4 fl (7.2-11.7); MONO # 1.1 K/uL (0.0-0.8); MONO % 9.4 % (0.0-10.0); NEUT # 7.3 K/uL (1.8-7.0); NEUT % 63.4 % (50.0-75.0); RED CELL DISTRIBUTION WIDTH 18.7 % (11.5-14.5); WHITE BLOOD COUNT 11.6 K/uL (4.8-10.8)
[2016-05-18 20:38] LABS: CALCIUM 8.2 mg/dL (8.4-10.2); POTASSIUM 3.9 MMOL/L (3.6-5.0)
[2016-05-18 23:41] LABS: RBC URINE 54 /hpf (0-3); URINE BACTERIA OCC (<OCC); URINE BILIRUBIN NEGATIVE (NEGATIVE); URINE BLOOD MODERATE (NEGATIVE); URINE COLOR AMBER (YELLOW); URINE GLUCOSE (UA) 50 mg/dL (Normal); URINE KETONE TRACE mg/dL (NEGATIVE); URINE LEUKOCYTE ESTERASE LARGE Leu/uL (Negative); URINE PROTEIN 100 mg/dL (NEGATIVE); URINE UROBILINOGEN 0.2-1.0 mg/dL (0.2-1.0); WBC CLUMPS MANY /hpf; WBC URINE 1088 /hpf (0-5)
[2016-05-19] MEDS: Insulin Lispro (humaLOG) 100 Units/ml Inj SC SCH ×4 (07:07→21:21)
[2016-05-19] MEDS: Levothyroxine 25 MCG TAB PO SCH (08:59)
[2016-05-19] MEDS: Multivitamin Vitamin B Complex (Nephro-Vite) Tab PO SCH (08:59)
--- NOTE | 2016-05-19 10:32 | RAD ---
HISTORY: fever COMPARISON: 05/07/2016 FINDINGS: LUNGS: Bibasilar subsegmental atelectasis is noted. Mild vascular congestion is also not excluded. PLEURA: Small pleural effusions in addition to the bibasilar subsegmental atelectasis. CARDIOVASCULAR: Mild vascular congestion. Heart is unchanged in size. OSSEOUS STRUCTURES: No significant abnormalities. VISUALIZED UPPER ABDOMEN: Normal. OTHER FINDINGS: Right catheter is now appreciated with its tip in the superior vena cava. No pneumothorax. IMPRESSION: Mild vascular congestion and probable small effusions with subsegmental atelectasis at the lung bases.
--- NOTE | 2016-05-19 12:10 | CP.PCM.PN ---
Subjective - Date & Time of Evaluation Date of Evaluation: 05/19/16 Time of Evaluation: 07:55 - Subjective Subjective: Spiked fever overnight. No signs of focus infection. Odell cultures done. Patient pleasant, cooperative. Baseline confusion. ROS negative for new and active complains. No chest pain, shortness of breath, palpitations. Denies abdominal pain. Transient diarrhea. Objective - Vital Signs/Intake and Output Vital Signs (last 24 hours): Temp Pulse Resp BP Pulse Ox 99.6 F 91 H 20 150/76 94 L 05/19/16 08:41 05/19/16 08:41 05/19/16 08:41 05/19/16 08:41 05/19/16 08:41 - Medications Medications: Current Medications Ascorbic Acid (Vitamin C 500 Mg Tab) 500 mg PO DAILY [facility] Last Admin: 05/19/16 08:59 Dose: 500 mg Dextrose (Glutose 15) 0 gm PO ONCE PRN; Protocol PRN Reason: Hypoglycemia Protocol Dextrose (Dextrose 50% Inj) 0 ml IV STAT PRN; Protocol PRN Reason: Hyglycemia Protocol Ergocalciferol (Drisdol 50,000 Intl Units Cap) 1 cap PO Q7D [facility] Last Admin: 05/17/16 03:01 Dose: 1 cap Fluconazole (Diflucan) 100 mg PO TTS [facility] Last Admin: 05/19/16 08:59 Dose: 100 mg Glucagon (Glucagen Diagnostic Kit) 0 mg IM STAT PRN; Protocol PRN Reason: Hypoglycemia Protocol Heparin Sodium (Porcine) (Heparin) 5,000 units SC Q12 [facility] PRN Reason: Protocol Last Admin: 05/19/16 08:59 Dose: 5,000 units Insulin Human Lispro (Humalog) 0 units SC ACHS [facility] PRN Reason: Protocol Last Admin: 05/19/16 11:48 Dose: Not Given Levothyroxine Sodium (Synthroid) 25 mcg PO DAILY [facility] Last Admin: 05/19/16 08:59 Dose: 25 mcg Vitamin B Complex/Vit C/Folic Acid (Nephro-Berkley) 1 tab PO DAILY [facility] Last Admin: 05/19/16 08:59 Dose: 1 tab - Labs Labs: 05/18/16 20:16 05/18/16 20:16 PT 11.7 SECONDS (9.6-11.2) H 05/11/16 18:21 INR 1.13 (0.92-1.08) H 05/11/16 18:21 APTT 28.0 SECONDS (23.3-32.5) 05/11/16 18:21 - Head Exam Head Exam: ATRAUMATIC, NORMOCEPHALIC - Eye Exam Eye Exam: EOMI, Normal appearance Pupil Exam: NORMAL ACCOMODATION - ENT Exam Additional comments: IJ site clean. No signs of acute infection. - Respiratory Exam Respiratory Exam: NORMAL BREATHING PATTERN. absent: Rales, Rhonchi, Wheezes - Cardiovascular Exam Cardiovascular Exam: REGULAR RHYTHM, +S1, +S2 - GI/Abdominal Exam GI & Abdominal Exam: Soft. absent: Distended, Tenderness - Extremities Exam Additional comments: +2 Edema - Neurological Exam Neurological Exam: Alert, Awake Assessment and Plan - Assessment and Plan (Free Text) Plan: 1)Acute on chronic kidney failure, multifactorial, drug toxicity, fluid overload , cardiac etiology -Cr: 5.5 from 4.9 -Avoid nephrotoxic medications for now -monitor BUN/Cr -Lubricator Granulator Dr Patterson appreciated - Next HD: today (scheduled) 2) Fever spike, 101.9 -Odell cultures done, CXR reviewed -No Empircal Abx for now -C. Diff negative -Dr. Guzmán on board 3) AMS, lethargy, multifactorial medication side effects, delirium -improving -vitals remain stable, afebrile -reviewed MRI, CT of head, no acute findings - treating the patient for UTI and cellulitis; no abx for now -monitor inpatient -Hemodialysis was done yesterday 4)UTI -completed course of cefepime for initial UTI on admission - Currently no antibiotic indicated as per ID - U/A from 05/11/16: showed yeast 10,000-50,000 possible contamination, no Rx as per ID currently - Diflucan
--- NOTE | 2016-05-19 19:44 | CP.PCM.PN ---
Subjective - Date & Time of Evaluation Date of Evaluation: 05/19/16 Time of Evaluation: 14:10 - Subjective Subjective: on hd today joana proc continur rx and support 80 yo female with PMHx of T2DM, anxiety, arthritis, CAD, COPD, depression, hypertension admitted for AMS, lethargy, treated for UTI, found to be in renal failure with new-onset fever. C.diff was negative. May be due to yeast in urine (started on diflucan) or viral illness transmitted by family member, though will rule out other sources. ? too soon to be permcath? -Blood culture -Urine culture stat via straight cath Objective - Vital Signs/Intake and Output Vital Signs (last 24 hours): Temp Pulse Resp BP Pulse Ox 99.3 F 104 H 20 144/73 99 05/19/16 16:00 05/19/16 16:00 05/19/16 16:00 05/19/16 16:00 05/19/16 16:00 - Medications Medications: Current Medications Ascorbic Acid (Vitamin C 500 Mg Tab) 500 mg PO DAILY [facility] Last Admin: 05/19/16 08:59 Dose: 500 mg Dextrose (Glutose 15) 0 gm PO ONCE PRN; Protocol PRN Reason: Hypoglycemia Protocol Dextrose (Dextrose 50% Inj) 0 ml IV STAT PRN; Protocol PRN Reason: Hyglycemia Protocol Ergocalciferol (Drisdol 50,000 Intl Units Cap) 1 cap PO Q7D [facility] Last Admin: 05/17/16 03:01 Dose: 1 cap Fluconazole (Diflucan) 100 mg PO TTS [facility] Last Admin: 05/19/16 08:59 Dose: 100 mg Glucagon (Glucagen Diagnostic Kit) 0 mg IM STAT PRN; Protocol PRN Reason: Hypoglycemia Protocol Heparin Sodium (Porcine) (Heparin) 5,000 units SC Q12 [facility] PRN Reason: Protocol Last Admin: 05/19/16 08:59 Dose: 5,000 units Heparin Sodium (Porcine) (Heparin) 2,000 units IVP TTS [facility] PRN Reason: Protocol Stop: 05/26/16 23:59 Last Admin: 05/19/16 12:40 Dose: 2,000 units Insulin Human Lispro (Humalog) 0 units SC ACHS [facility] PRN Reason: Protocol Last Admin: 05/19/16 16:56 Dose: Not Given Levothyroxine Sodium (Synthroid) 25 mcg PO DAILY [facility] Last Admin: 05/19/16 08:59 Dose: 25 mcg Vitamin B Complex/Vit C/Folic Acid (Nephro-Berkley) 1 tab PO DAILY [facility] Last Admin: 05/19/16 08:59 Dose: 1 tab - Labs Labs: 05/18/16 20:16 05/18/16 20:16 PT 11.7 SECONDS (9.6-11.2) H 05/11/16 18:21 INR 1.13 (0.92-1.08) H 05/11/16 18:21 APTT 28.0 SECONDS (23.3-32.5) 05/11/16 18:21 - Constitutional Appears: Non-toxic - Head Exam Head Exam: NORMAL INSPECTION - Eye Exam Eye Exam: Normal appearance - ENT Exam ENT Exam: Mucous Membranes Moist - Respiratory Exam Respiratory Exam: NORMAL BREATHING PATTERN - Cardiovascular Exam Cardiovascular Exam: REGULAR RHYTHM - GI/Abdominal Exam GI & Abdominal Exam: Soft - Neurological Exam Neurological Exam: Alert, Awake - Psychiatric Exam Psychiatric exam: Normal Affect, Normal Mood - Skin Skin Exam: Dry, Warm
[2016-05-20 00:33] LABS: POTASSIUM 3.8 MMOL/L (3.6-5.0)
[2016-05-20] MEDS: Levothyroxine 25 MCG TAB PO SCH (05:33)
[2016-05-20] MEDS: Insulin Lispro (humaLOG) 100 Units/ml Inj SC SCH ×4 (07:16→22:43)
[2016-05-20] MEDS: Multivitamin Vitamin B Complex (Nephro-Vite) Tab PO SCH (08:28)
--- NOTE | 2016-05-20 08:36 | CP.PCM.PN ---
Objective - Vital Signs/Intake and Output Vital Signs (last 24 hours): Temp Pulse Resp BP Pulse Ox 98.9 F 102 H 20 157/79 H 99 05/20/16 08:15 05/20/16 08:15 05/20/16 08:15 05/20/16 08:15 05/20/16 08:15 Intake and Output: 05/20/16 05/20/16 06:59 18:59 Intake Total 240 Balance 240 - Medications Medications: Current Medications Ascorbic Acid (Vitamin C 500 Mg Tab) 500 mg PO DAILY [facility] Last Admin: 05/20/16 08:28 Dose: 500 mg Dextrose (Glutose 15) 0 gm PO ONCE PRN; Protocol PRN Reason: Hypoglycemia Protocol Dextrose (Dextrose 50% Inj) 0 ml IV STAT PRN; Protocol PRN Reason: Hyglycemia Protocol Ergocalciferol (Drisdol 50,000 Intl Units Cap) 1 cap PO Q7D [facility] Last Admin: 05/17/16 03:01 Dose: 1 cap Fluconazole (Diflucan) 100 mg PO TTS [facility] Last Admin: 05/19/16 08:59 Dose: 100 mg Glucagon (Glucagen Diagnostic Kit) 0 mg IM STAT PRN; Protocol PRN Reason: Hypoglycemia Protocol Heparin Sodium (Porcine) (Heparin) 5,000 units SC Q12 [facility] PRN Reason: Protocol Last Admin: 05/20/16 08:28 Dose: 5,000 units Heparin Sodium (Porcine) (Heparin) 2,000 units IVP TTS [facility] PRN Reason: Protocol Stop: 05/26/16 23:59 Last Admin: 05/19/16 12:40 Dose: 2,000 units Insulin Human Lispro (Humalog) 0 units SC ACHS [facility] PRN Reason: Protocol Last Admin: 05/20/16 07:16 Dose: Not Given Levothyroxine Sodium (Synthroid) 25 mcg PO DAILY@0630 [facility] Last Admin: 05/20/16 05:33 Dose: 25 mcg Vitamin B Complex/Vit C/Folic Acid (Nephro-Berkley) 1 tab PO DAILY [facility] Last Admin: 05/20/16 08:28 Dose: 1 tab - Labs Labs: 05/18/16 20:16 05/19/16 19:00 PT 11.7 SECONDS (9.6-11.2) H 05/11/16 18:21 INR 1.13 (0.92-1.08) H 05/11/16 18:21 APTT 28.0 SECONDS (23.3-32.5) 05/11/16 18:21
--- NOTE | 2016-05-20 09:28 | CP.PCM.PN ---
Subjective - Date & Time of Evaluation Date of Evaluation: 05/20/16 Time of Evaluation: 07:15 - Subjective Subjective: 80 YO F is seen at bedside, fully awake and alert. Able to have a conversation. Has no new complaints, denies any n/v/sob or chest pain. Complains of some vague leg cramping, which is present with previous presentation. Objective - Vital Signs/Intake and Output Vital Signs (last 24 hours): Temp Pulse Resp BP Pulse Ox 98.9 F 102 H 20 157/79 H 99 05/20/16 08:15 05/20/16 08:15 05/20/16 08:15 05/20/16 08:15 05/20/16 08:15 Intake and Output: 05/20/16 05/20/16 06:59 18:59 Intake Total 240 Balance 240 - Medications Medications: Current Medications Ascorbic Acid (Vitamin C 500 Mg Tab) 500 mg PO DAILY [facility] Last Admin: 05/20/16 08:28 Dose: 500 mg Dextrose (Glutose 15) 0 gm PO ONCE PRN; Protocol PRN Reason: Hypoglycemia Protocol Dextrose (Dextrose 50% Inj) 0 ml IV STAT PRN; Protocol PRN Reason: Hyglycemia Protocol Ergocalciferol (Drisdol 50,000 Intl Units Cap) 1 cap PO Q7D [facility] Last Admin: 05/17/16 03:01 Dose: 1 cap Fluconazole (Diflucan) 100 mg PO TTS [facility] Last Admin: 05/19/16 08:59 Dose: 100 mg Glucagon (Glucagen Diagnostic Kit) 0 mg IM STAT PRN; Protocol PRN Reason: Hypoglycemia Protocol Heparin Sodium (Porcine) (Heparin) 5,000 units SC Q12 [facility] PRN Reason: Protocol Last Admin: 05/20/16 08:28 Dose: 5,000 units Heparin Sodium (Porcine) (Heparin) 2,000 units IVP TTS [facility] PRN Reason: Protocol Stop: 05/26/16 23:59 Last Admin: 05/19/16 12:40 Dose: 2,000 units Insulin Human Lispro (Humalog) 0 units SC ACHS [facility] PRN Reason: Protocol Last Admin: 05/20/16 07:16 Dose: Not Given Levothyroxine Sodium (Synthroid) 25 mcg PO DAILY@0630 [facility] Last Admin: 05/20/16 05:33 Dose: 25 mcg Vitamin B Complex/Vit C/Folic Acid (Nephro-Berkley) 1 tab PO DAILY [facility] Last Admin: 05/20/16 08:28 Dose: 1 tab - Labs Labs: 05/18/16 20:16 05/19/16 19:00 PT 11.7 SECONDS (9.6-11.2) H 05/11/16 18:21 INR 1.13 (0.92-1.08) H 05/11/16 18:21 APTT 28.0 SECONDS (23.3-32.5) 05/11/16 18:21 - Constitutional Appears: No Acute Distress - Head Exam Head Exam: NORMAL INSPECTION - Eye Exam Eye Exam: Normal appearance Pupil Exam: NORMAL ACCOMODATION - Respiratory Exam Respiratory Exam: Clear to Ausculation Bilateral, NORMAL BREATHING PATTERN - Cardiovascular Exam Cardiovascular Exam: REGULAR RHYTHM, +S1, +S2 - GI/Abdominal Exam GI & Abdominal Exam: Soft, Normal Bowel Sounds - Neurological Exam Neurological Exam: Alert, Awake, CN II-XII Intact, Oriented x3 - Psychiatric Exam Psychiatric exam: Normal Affect, Normal Mood Assessment and Plan - Assessment and Plan (Free Text) Assessment: 80 yo female with pmhx of T2DM, anxiety, arthritis, CAD, COPD, depression, hypertension will be admitted for AMS, lethargy. 1)Acute on chronic kidney failure, multifactorial, drug toxicity, fluid overload , cardiac etiology -Cr: 5.9 -Avoid nephrotoxic medications for now -monitor BUN/Cr -Dynamometer Mechanic Dr Patterson appreciated - Next HD: Possibly tomorrow - Perma cath possible? Consult Nephro - F/U CMP 2) Fever (Afebrile overnight) -Odell cultures done, CXR reviewed\ - Blood culture no growth in 24 hours - F/U stoool culture -No Empircal Abx for now -C. Diff negative -Dr. Guzmán on board 3) AMS, lethargy, multifactorial medication side effects, delirium -improving -vitals remain stable, afebrile -reviewed MRI, CT of head, no acute findings - treating the patient for UTI and cellulitis; no abx for now -monitor inpatient -Hemodialysis was done yesterday 4)UTI -completed course of cefepime for initial UTI on admission - Currently no antibiotic indicated as per ID - U/A from 05/11/16: showed yeast 10,000-50,000 possible contamination, - Diflucan 5) Hypothyroidism - Levothyroxine 6) DVT prophylaxis - Heparin
[2016-05-20 10:05] LABS: ALB/GLOB RATIO 0.7 (1.0-2.1); BILIRUBIN,TOTAL 0.4 mg/dl (0.2-1.3); CALCIUM 7.9 mg/dL (8.4-10.2); POTASSIUM 3.9 MMOL/L (3.6-5.0); TOTAL PROTEIN 5.5 G/DL (6.3-8.2)
--- NOTE | 2016-05-20 17:26 | CP.PCM.PN ---
Subjective - Date & Time of Evaluation Date of Evaluation: 05/20/16 Time of Evaluation: 17:19 - Subjective Subjective: ID NOTE PATIENT IS PRESENTLY AFEBRILE ALSO HYPONATREMIC,DIFLUCAN HELD,WILL RE EVALUATE TOMORROW UA(05/18/16) SHOWED SIGNIFICANT BACTERIA AND WBC URINE CULTURE ORDERED 05/19/16 AND 05/20/16 CREATININE :4.4,GFR:10 HAVE ORDERED NURSING TO CALL ME IF ANY TEMP SPIKE Objective - Vital Signs/Intake and Output Vital Signs (last 24 hours): Temp Pulse Resp BP Pulse Ox 98.4 F 100 H 17 128/67 96 05/20/16 15:42 05/20/16 15:42 05/20/16 15:42 05/20/16 15:42 05/20/16 15:42 Intake and Output: 05/20/16 05/20/16 06:59 18:59 Intake Total 240 Balance 240 - Medications Medications: Current Medications Ascorbic Acid (Vitamin C 500 Mg Tab) 500 mg PO DAILY [facility] Last Admin: 05/20/16 08:28 Dose: 500 mg Dextrose (Glutose 15) 0 gm PO ONCE PRN; Protocol PRN Reason: Hypoglycemia Protocol Dextrose (Dextrose 50% Inj) 0 ml IV STAT PRN; Protocol PRN Reason: Hyglycemia Protocol Ergocalciferol (Drisdol 50,000 Intl Units Cap) 1 cap PO Q7D [facility] Last Admin: 05/17/16 03:01 Dose: 1 cap Glucagon (Glucagen Diagnostic Kit) 0 mg IM STAT PRN; Protocol PRN Reason: Hypoglycemia Protocol Heparin Sodium (Porcine) (Heparin) 5,000 units SC Q12 [facility] PRN Reason: Protocol Last Admin: 05/20/16 08:28 Dose: 5,000 units Heparin Sodium (Porcine) (Heparin) 2,000 units IVP TTS [facility] PRN Reason: Protocol Stop: 05/26/16 23:59 Last Admin: 05/19/16 12:40 Dose: 2,000 units Insulin Human Lispro (Humalog) 0 units SC ACHS [facility] PRN Reason: Protocol Last Admin: 05/20/16 15:54 Dose: 2 unit Levothyroxine Sodium (Synthroid) 25 mcg PO DAILY@0630 [facility] Last Admin: 05/20/16 05:33 Dose: 25 mcg Vitamin B Complex/Vit C/Folic Acid (Nephro-Berkley) 1 tab PO DAILY [facility] Last Admin: 05/20/16 08:28 Dose: 1 tab - Labs Labs: 05/18/16 20:16 05/20/16 09:45 PT 11.7 SECONDS (9.6-11.2) H 05/11/16 18:21 INR 1.13 (0.92-1.08) H 05/11/16 18:21 APTT 28.0 SECONDS (23.3-32.5) 05/11/16 18:21
[2016-05-21 07:07] LABS: BASO # 0.1 K/uL (0.0-0.2); BASO % 1.1 % (0.0-2.0); EOS # 0.6 K/uL (0.0-0.7); EOS % 5.2 % (0.0-4.0); LYMPH # 2.4 K/uL (1.0-4.3); LYMPH % 19.8 % (20.0-40.0); MEAN CELL VOLUME 75.9 fl (81.0-99.0); MEAN CORPUSCULAR HEMOGLOBIN 23.1 pg (27.0-31.0); MEAN CORPUSCULAR HGB CONC 30.4 g/dL (33.0-37.0); MEAN PLATELET VOLUME 8.2 fl (7.2-11.7); MONO # 1.1 K/uL (0.0-0.8); MONO % 9.5 % (0.0-10.0); NEUT # 7.7 K/uL (1.8-7.0); NEUT % 64.4 % (50.0-75.0); NRBC % 0.1 % (0.0-0.0); RED CELL DISTRIBUTION WIDTH 18.6 % (11.5-14.5)
[2016-05-21 07:37] LABS: CALCIUM 7.9 mg/dL (8.4-10.2)
[2016-05-21] MEDS: Levothyroxine 25 MCG TAB PO SCH (07:37)
[2016-05-21] MEDS: Insulin Lispro (humaLOG) 100 Units/ml Inj SC SCH ×4 (07:37→23:17)
[2016-05-21] MEDS: Multivitamin Vitamin B Complex (Nephro-Vite) Tab PO SCH (08:47)
--- NOTE | 2016-05-21 09:51 | CP.PCM.PN ---
<Giacomo Guerrero - Last Filed: 05/21/16 14:36> Subjective - Date & Time of Evaluation Date of Evaluation: 05/21/16 Time of Evaluation: 07:45 - Subjective Subjective: PT was seen at bedside. She appears comfortable denies any over night events. Denies N/V/D/ SOB/ Chest pain. Objective - Vital Signs/Intake and Output Vital Signs (last 24 hours): Temp Pulse Resp BP Pulse Ox 98.4 F 90 20 138/54 L 94 L 05/21/16 08:17 05/21/16 08:46 05/21/16 08:17 05/21/16 08:46 05/21/16 08:17 - Medications Medications: Current Medications Ascorbic Acid (Vitamin C 500 Mg Tab) 500 mg PO DAILY [facility] Last Admin: 05/21/16 08:47 Dose: 500 mg Dextrose (Glutose 15) 0 gm PO ONCE PRN; Protocol PRN Reason: Hypoglycemia Protocol Dextrose (Dextrose 50% Inj) 0 ml IV STAT PRN; Protocol PRN Reason: Hyglycemia Protocol Ergocalciferol (Drisdol 50,000 Intl Units Cap) 1 cap PO Q7D [facility] Last Admin: 05/17/16 03:01 Dose: 1 cap Glucagon (Glucagen Diagnostic Kit) 0 mg IM STAT PRN; Protocol PRN Reason: Hypoglycemia Protocol Heparin Sodium (Porcine) (Heparin) 5,000 units SC Q12 [facility] PRN Reason: Protocol Last Admin: 05/21/16 08:48 Dose: 5,000 units Heparin Sodium (Porcine) (Heparin) 2,000 units IVP TTS [facility] PRN Reason: Protocol Stop: 05/26/16 23:59 Last Admin: 05/19/16 12:40 Dose: 2,000 units Insulin Human Lispro (Humalog) 0 units SC ACHS [facility] PRN Reason: Protocol Last Admin: 05/21/16 07:37 Dose: Not Given Levothyroxine Sodium (Synthroid) 25 mcg PO DAILY@0630 [facility] Last Admin: 05/21/16 07:37 Dose: 25 mcg Vitamin B Complex/Vit C/Folic Acid (Nephro-Berkley) 1 tab PO DAILY [facility] Last Admin: 05/21/16 08:47 Dose: 1 tab - Labs Labs: 05/21/16 06:00 05/21/16 06:00 PT 11.7 SECONDS (9.6-11.2) H 05/11/16 18:21 INR 1.13 (0.92-1.08) H 05/11/16 18:21 APTT 28.0 SECONDS (23.3-32.5) 05/11/16 18:21 - Constitutional Appears: No Acute Distress - Head Exam Head Exam: ATRAUMATIC, NORMAL INSPECTION, NORMOCEPHALIC - Eye Exam Eye Exam: Normal appearance - Respiratory Exam Respiratory Exam: NORMAL BREATHING PATTERN. absent: Rales, Rhonchi, Wheezes - Cardiovascular Exam Cardiovascular Exam: REGULAR RHYTHM, +S1, +S2 - GI/Abdominal Exam GI & Abdominal Exam: Soft, Normal Bowel Sounds. absent: Tenderness - Extremities Exam Extremities Exam: Normal Inspection - Neurological Exam Neurological Exam: Alert, Awake, CN II-XII Intact, Oriented x3 Assessment and Plan - Assessment and Plan (Free Text) Assessment: 80 yo female with pmhx of T2DM, anxiety, arthritis, CAD, COPD, depression, hypertension will be admitted for AMS, lethargy. 1)Acute on chronic kidney failure, multifactorial, drug toxicity, fluid overload , cardiac etiology -Cr: 4.9 -Avoid nephrotoxic medications for now - D/C diflucan -monitor BUN/Cr -Fire Alarm Installer Dr Patterson appreciated - Next HD: Scheduled tomorrow - Perma cath possible? Consult Nephro - Na+:131 resolving, K+:4.0, creatinine: 4.9 2) Fever (Afebrile ) -Odell cultures done, CXR reviewed\ - Blood culture no growth in 48 hours - No Stool salmonella, shigella, camplylobacter - Urine Culture No growth -No Empircal Abx for now -C. Diff negative -Dr. Guzmán on board 3) AMS, lethargy, multifactorial medication side effects, delirium -improving -vitals remain stable -reviewed MRI, CT of head, no acute findings - treating the patient for UTI and cellulitis; no abx for now -monitor inpatient -Hemodialysis was done yesterday 4)UTI (Resolved) -completed course of cefepime for initial UTI on admission - Currently no antibiotic indicated as per ID - U/A no growth 5) Hypothyroidism - Levothyroxine 6) DVT prophylaxis - Heparin <Ta Lipscomb - Last Filed: 05/22/16 06:50> Objective - Vital Signs/Intake and Output Vital Signs (last 24 hours): Temp Pulse Resp BP Pulse Ox 99.5 F 108 H 20 134/78 90 L 05/21/16 21:55 05/21/16 21:55 05/21/16 21:55 05/21/16 21:55 05/21/16 21:55 - Medications Medications: Current Medications Ascorbic Acid (Vitamin C 500 Mg Tab) 500 mg PO DAILY [facility] Last Admin: 05/21/16 08:47 Dose: 500 mg Dextrose (Glutose 15) 0 gm PO ONCE PRN; Protocol PRN Reason: Hypoglycemia Protocol Dextrose (Dextrose 50% Inj) 0 ml IV STAT PRN; Protocol PRN Reason: Hyglycemia Protocol Ergocalciferol (Drisdol 50,000 Intl Units Cap) 1 cap PO Q7D [facility] Last Admin: 05/17/16 03:01 Dose: 1 cap Glucagon (Glucagen Diagnostic Kit) 0 mg IM STAT PRN; Protocol PRN Reason: Hypoglycemia Protocol Heparin Sodium (Porcine) (Heparin) 5,000 units SC Q12 [facility] PRN Reason: Protocol Last Admin: 05/21/16 21:16 Dose: 5,000 units Heparin Sodium (Porcine) (Heparin) 2,000 units IVP TTS [facility] PRN Reason: Protocol Stop: 05/26/16 23:59 Last Admin: 05/19/16 12:40 Dose: 2,000 units Insulin Human Lispro (Humalog) 0 units SC ACHS [facility] PRN Reason: Protocol Last Admin: 05/22/16 06:48 Dose: Not Given Levothyroxine Sodium (Synthroid) 25 mcg PO DAILY@0630 [facility] Last Admin: 05/22/16 06:21 Dose: 25 mcg Vitamin B Complex/Vit C/Folic Acid (Nephro-Berkley) 1 tab PO DAILY [facility] Last Admin: 05/21/16 08:47 Dose: 1 tab - Labs Labs: 05/21/16 06:00 05/21/16 06:00 PT 11.7 SECONDS (9.6-11.2) H 05/11/16 18:21 INR 1.13 (0.92-1.08) H 05/11/16 18:21 APTT 28.0 SECONDS (23.3-32.5) 05/11/16 18:21 Attending/Attestation - Attestation I have personally seen and examined this patient.: Yes I have fully participated in the care of the patient.: Yes I have reviewed all pertinent clinical information, including history, physical exam and plan: Yes
--- NOTE | 2016-05-21 18:37 | PN ---
DATE: 05/21/2016 NEUROLOGICAL PROBLEM: Metabolic encephalopathy. PHYSICAL EXAMINATION: VITAL SIGNS: Blood pressure 138/54, mean arterial pressure 82, respiratory rate is 16, temperature 98.4. NEUROLOGIC: The patient seems to be back to her baseline mental status. She is comfortable sitting in the chair. She is communicable in Bermudian. She moves all 4 extremities against gravity. Good visual contact. Speech is fluent. Earlier, I had a discussion with the resident. At this point, the patient seems to be intact medically. I do not want to added Keppra for her seizures which which was started for abnormal paroxysmal electrographic activities from the EEG. Now the patient's mentation is stable medically and electrolyte numbers are back to normal. Repeated electroencephalogram showed no electrographic seizures. RECOMMENDATIONS: At present now I recommend to continue the present management. No antiepileptic drug is necessary at this point. If anything happens, then I will decide to give some different antiepileptic drugs. Continue the close observation. Torito Moya MD cc: [id number] TT: 05/21/2016 18:36:11 Confirmation # [id number] Dictation # [id number] julio CAMPA
--- NOTE | 2016-05-21 23:45 | CP.PCM.PN ---
Subjective - Date & Time of Evaluation Date of Evaluation: 05/21/16 Time of Evaluation: 15:00 - Subjective Subjective: SEEN ON RENAL F/U OOB AND ON RECLINER ALERT AND RESPONSIVE .. IN NAD ON HD TTS CLERK TYPIST ON THE BED SIDE .. APPETITE IS POOR Objective - Vital Signs/Intake and Output Vital Signs (last 24 hours): Temp Pulse Resp BP Pulse Ox 99.5 F 108 H 20 134/78 90 L 05/21/16 21:55 05/21/16 21:55 05/21/16 21:55 05/21/16 21:55 05/21/16 21:55 - Medications Medications: Current Medications Ascorbic Acid (Vitamin C 500 Mg Tab) 500 mg PO DAILY [facility] Last Admin: 05/21/16 08:47 Dose: 500 mg Dextrose (Glutose 15) 0 gm PO ONCE PRN; Protocol PRN Reason: Hypoglycemia Protocol Dextrose (Dextrose 50% Inj) 0 ml IV STAT PRN; Protocol PRN Reason: Hyglycemia Protocol Ergocalciferol (Drisdol 50,000 Intl Units Cap) 1 cap PO Q7D [facility] Last Admin: 05/17/16 03:01 Dose: 1 cap Glucagon (Glucagen Diagnostic Kit) 0 mg IM STAT PRN; Protocol PRN Reason: Hypoglycemia Protocol Heparin Sodium (Porcine) (Heparin) 5,000 units SC Q12 [facility] PRN Reason: Protocol Last Admin: 05/21/16 21:16 Dose: 5,000 units Heparin Sodium (Porcine) (Heparin) 2,000 units IVP TTS [facility] PRN Reason: Protocol Stop: 05/26/16 23:59 Last Admin: 05/19/16 12:40 Dose: 2,000 units Insulin Human Lispro (Humalog) 0 units SC ACHS [facility] PRN Reason: Protocol Last Admin: 05/21/16 23:17 Dose: Not Given Levothyroxine Sodium (Synthroid) 25 mcg PO DAILY@0630 [facility] Last Admin: 05/21/16 07:37 Dose: 25 mcg Vitamin B Complex/Vit C/Folic Acid (Nephro-Berkley) 1 tab PO DAILY [facility] Last Admin: 05/21/16 08:47 Dose: 1 tab - Labs Labs: 05/21/16 06:00 05/21/16 06:00 PT 11.7 SECONDS (9.6-11.2) H 05/11/16 18:21 INR 1.13 (0.92-1.08) H 05/11/16 18:21 APTT 28.0 SECONDS (23.3-32.5) 05/11/16 18:21 Assessment and Plan - Assessment and Plan (Free Text) Assessment: 80 yo female with pmhx of T2DM, anxiety, arthritis, CAD, COPD, depression, hypertension will be admitted for AMS, lethargy. 1)Acute on chronic kidney failure, multifactorial, drug toxicity, fluid overload , cardiac etiology -Cr: 4.9 -Avoid nephrotoxic medications for now - D/C diflucan -monitor BUN/Cr -Rn Occupational Dr Patterson appreciated - Next HD: Scheduled tomorrow - Perma cath possible? Consult Nephro - Na+:131 resolving, K+:4.0, creatinine: 4.9 2) Fever (Afebrile ) -Odell cultures done, CXR reviewed\ - Blood culture no growth in 48 hours - No Stool salmonella, shigella, camplylobacter - Urine Culture No growth -No Empircal Abx for now -C. Diff negative -Dr. Guzámn on board 3) AMS, lethargy, multifactorial medication side effects, delirium -improving -vitals remain stable -reviewed MRI, CT of head, no acute findings - treating the patient for UTI and cellulitis; no abx for now -monitor inpatient -Hemodialysis was done yesterday 4)UTI (Resolved) -completed course of cefepime for initial UTI on admission - Currently no antibiotic indicated as per ID
[2016-05-22] MEDS: Levothyroxine 25 MCG TAB PO SCH (06:21)
[2016-05-22] MEDS: Insulin Lispro (humaLOG) 100 Units/ml Inj SC SCH ×4 (06:48→22:50)
[2016-05-22 06:56] LABS: POTASSIUM 4.2 MMOL/L (3.6-5.0)
[2016-05-22] MEDS: Multivitamin Vitamin B Complex (Nephro-Vite) Tab PO SCH (08:00)
--- NOTE | 2016-05-22 08:32 | CP.PCM.PN ---
<Giacomo Guerrero - Last Filed: 05/22/16 08:46> Subjective - Date & Time of Evaluation Date of Evaluation: 05/22/16 Time of Evaluation: 07:30 - Subjective Subjective: PT was seen resting comfortably in bed. Denies any current complaints. Her appetite remains to be suppressed. PT has been afrebrile overnight, denies any N /V/D/Chest pain. Objective - Vital Signs/Intake and Output Vital Signs (last 24 hours): Temp Pulse Resp BP Pulse Ox 98.7 F 96 H 20 146/68 100 05/22/16 08:01 05/22/16 08:01 05/22/16 08:01 05/22/16 08:01 05/22/16 08:01 - Medications Medications: Current Medications Ascorbic Acid (Vitamin C 500 Mg Tab) 500 mg PO DAILY [facility] Last Admin: 05/22/16 08:00 Dose: 500 mg Dextrose (Glutose 15) 0 gm PO ONCE PRN; Protocol PRN Reason: Hypoglycemia Protocol Dextrose (Dextrose 50% Inj) 0 ml IV STAT PRN; Protocol PRN Reason: Hyglycemia Protocol Ergocalciferol (Drisdol 50,000 Intl Units Cap) 1 cap PO Q7D [facility] Last Admin: 05/17/16 03:01 Dose: 1 cap Glucagon (Glucagen Diagnostic Kit) 0 mg IM STAT PRN; Protocol PRN Reason: Hypoglycemia Protocol Heparin Sodium (Porcine) (Heparin) 5,000 units SC Q12 [facility] PRN Reason: Protocol Last Admin: 05/22/16 08:00 Dose: 5,000 units Heparin Sodium (Porcine) (Heparin) 2,000 units IVP TTS [facility] PRN Reason: Protocol Stop: 05/26/16 23:59 Last Admin: 05/22/16 08:01 Dose: 2,000 units Insulin Human Lispro (Humalog) 0 units SC ACHS [facility] PRN Reason: Protocol Last Admin: 05/22/16 06:48 Dose: Not Given Levothyroxine Sodium (Synthroid) 25 mcg PO DAILY@0630 [facility] Last Admin: 05/22/16 06:21 Dose: 25 mcg Vitamin B Complex/Vit C/Folic Acid (Nephro-Berkley) 1 tab PO DAILY [facility] Last Admin: 05/22/16 08:00 Dose: 1 tab - Labs Labs: 05/21/16 06:00 05/22/16 05:45 PT 11.7 SECONDS (9.6-11.2) H 05/11/16 18:21 INR 1.13 (0.92-1.08) H 05/11/16 18:21 APTT 28.0 SECONDS (23.3-32.5) 05/11/16 18:21 - Constitutional Appears: No Acute Distress - Head Exam Head Exam: ATRAUMATIC, NORMAL INSPECTION, NORMOCEPHALIC - Eye Exam Eye Exam: Normal appearance Pupil Exam: NORMAL ACCOMODATION - Respiratory Exam Respiratory Exam: Clear to Ausculation Bilateral, NORMAL BREATHING PATTERN. absent: Rhonchi, Wheezes - Cardiovascular Exam Cardiovascular Exam: REGULAR RHYTHM, +S1, +S2 - GI/Abdominal Exam GI & Abdominal Exam: Soft, Normal Bowel Sounds. absent: Tenderness - Neurological Exam Neurological Exam: Alert, Awake, CN II-XII Intact Assessment and Plan - Assessment and Plan (Free Text) Assessment: 80 yo female with pmhx of T2DM, anxiety, arthritis, CAD, COPD, depression, hypertension will be admitted for AMS, lethargy. 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 Consult Nephro - Na+:131 resolving, K+:4.2, creatinine: 5.4 - Next HD: Scheduled today as per nurse -F/U BMP 2) AMS, lethargy, multifactorial medication side effects, delirium -improving -vitals remain stable -reviewed MRI, CT of head, no acute findings - treating the patient for UTI and cellulitis; no abx for now - Spoke to neurology, hold kepra and monitor seizure like activity and mental status. -monitor inpatient 3) Hypothyroidism - Levothyroxine 4) DVT prophylaxis - Heparin <Ta Lipscomb - Last Filed: 05/24/16 06:50> Objective - Vital Signs/Intake and Output Vital Signs (last 24 hours): Temp Pulse Resp BP Pulse Ox 99.9 F H 103 H 20 137/75 100 05/23/16 22:00 05/23/16 22:00 05/23/16 22:00 05/23/16 17:11 05/23/16 22:00 - Medications Medications: Current Medications Ascorbic Acid (Vitamin C 500 Mg Tab) 500 mg PO DAILY [facility] Last Admin: 05/23/16 11:16 Dose: 500 mg Dextrose (Glutose 15) 0 gm PO ONCE PRN; Protocol PRN Reason: Hypoglycemia Protocol Dextrose (Dextrose 50% Inj) 0 ml IV STAT PRN; Protocol PRN Reason: Hyglycemia Protocol Ergocalciferol (Drisdol 50,000 Intl Units Cap) 1 cap PO Q7D [facility] Last Admin: 05/17/16 03:01 Dose: 1 cap Glucagon (Glucagen Diagnostic Kit) 0 mg IM STAT PRN; Protocol PRN Reason: Hypoglycemia Protocol Insulin Human Lispro (Humalog) 0 units SC ACHS [facility] PRN Reason: Protocol Last Admin: 05/23/16 22:47 Dose: Not Given Levothyroxine Sodium (Synthroid) 25 mcg PO DAILY@0630 [facility] Last Admin: 05/23/16 06:07 Dose: 25 mcg Nystatin (Nystop Topical Powder) 1 applic TOP TID [facility] Vitamin B Complex/Vit C/Folic Acid (Nephro-Berkley) 1 tab PO DAILY [facility] Last Admin: 05/23/16 11:15 Dose: 1 tab - Labs Labs: 05/21/16 06:00 05/23/16 05:50 PT 11.7 SECONDS (9.6-11.2) H 05/11/16 18:21 INR 1.13 (0.92-1.08) H 05/11/16 18:21 APTT 28.0 SECONDS (23.3-32.5) 05/11/16 18:21 Attending/Attestation - Attestation I have personally seen and examined this patient.: Yes I have fully participated in the care of the patient.: Yes I have reviewed all pertinent clinical information, including history, physical exam and plan: Yes
[2016-05-22 09:09] LABS: FECAL LEUKOCYTES NEGATIVE (NEGATIVE)
[2016-05-22 12:24] LABS: RBC URINE 5 /hpf (0-3); URINE BACTERIA RARE (<OCC); URINE BILIRUBIN NEGATIVE (NEGATIVE); URINE BLOOD SMALL (NEGATIVE); URINE COLOR YELLOW (YELLOW); URINE GLUCOSE (UA) NEG (Normal); URINE KETONE NEGATIVE (NEGATIVE); URINE LEUKOCYTE ESTERASE MOD Leu/uL (Negative); URINE PROTEIN 30 mg/dL (NEGATIVE); URINE UROBILINOGEN 0.2-1.0 mg/dL (0.2-1.0); WBC CLUMPS FEW /hpf; WBC URINE 5 /hpf (0-5)
--- NOTE | 2016-05-22 19:05 | CP.PCM.PN ---
Subjective - Date & Time of Evaluation Date of Evaluation: 05/22/16 Time of Evaluation: 15:00 - Subjective Subjective: SEEN ON RENAL F/U ON HD TODAY CLINICALLY BETTER Objective - Vital Signs/Intake and Output Vital Signs (last 24 hours): Temp Pulse Resp BP Pulse Ox 98.3 F 112 H 20 145/71 100 05/22/16 18:58 05/22/16 17:52 05/22/16 17:52 05/22/16 17:52 05/22/16 17:52 - Medications Medications: Current Medications Ascorbic Acid (Vitamin C 500 Mg Tab) 500 mg PO DAILY [facility] Last Admin: 05/22/16 08:00 Dose: 500 mg Dextrose (Glutose 15) 0 gm PO ONCE PRN; Protocol PRN Reason: Hypoglycemia Protocol Dextrose (Dextrose 50% Inj) 0 ml IV STAT PRN; Protocol PRN Reason: Hyglycemia Protocol Ergocalciferol (Drisdol 50,000 Intl Units Cap) 1 cap PO Q7D [facility] Last Admin: 05/17/16 03:01 Dose: 1 cap Glucagon (Glucagen Diagnostic Kit) 0 mg IM STAT PRN; Protocol PRN Reason: Hypoglycemia Protocol Heparin Sodium (Porcine) (Heparin) 5,000 units SC Q12 [facility] PRN Reason: Protocol Last Admin: 05/22/16 08:00 Dose: 5,000 units Insulin Human Lispro (Humalog) 0 units SC ACHS [facility] PRN Reason: Protocol Last Admin: 05/22/16 17:08 Dose: Not Given Levothyroxine Sodium (Synthroid) 25 mcg PO DAILY@0630 [facility] Last Admin: 05/22/16 06:21 Dose: 25 mcg Vitamin B Complex/Vit C/Folic Acid (Nephro-Berkley) 1 tab PO DAILY [facility] Last Admin: 05/22/16 08:00 Dose: 1 tab - Labs Labs: 05/21/16 06:00 05/22/16 05:45 PT 11.7 SECONDS (9.6-11.2) H 05/11/16 18:21 INR 1.13 (0.92-1.08) H 05/11/16 18:21 APTT 28.0 SECONDS (23.3-32.5) 05/11/16 18:21 Assessment and Plan - Assessment and Plan (Free Text) Assessment: SHRAVAN .. ON HD T T S VERY POOR APPETITE 80 yo female with pmhx of T2DM, anxiety, arthritis, CAD, COPD, depression, hypertension will be admitted for AMS, lethargy. 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 Consult Nephro - Na+:131 resolving, K+:4.2, creatinine: 5.4 - Next HD: Scheduled today as per nurse -F/U BMP 2) AMS, lethargy, multifactorial medication side effects, delirium -improving -vitals remain stable -reviewed MRI, CT of head, no acute findings - treating the patient for UTI and cellulitis; no abx for now - Spoke to neurology, hold kepra and monitor seizure like activity and mental status. -monitor inpatient 3) Hypothyroidism - Levothyroxine
--- NOTE | 2016-05-22 19:22 | CP.PCM.PN ---
Subjective - Date & Time of Evaluation Date of Evaluation: 05/22/16 Time of Evaluation: 19:24 - Subjective Subjective: ID NOTE HAD LOW GRADE TEMP TODAY(100) PRESENTLY 99 CULTURES ARE NEGATIVE WBC:12,CREATININE:5.4 HD TODAY WILL GIVE ROCEPHEN 500MG TODAY Objective - Vital Signs/Intake and Output Vital Signs (last 24 hours): Temp Pulse Resp BP Pulse Ox 98.3 F 112 H 20 145/71 100 05/22/16 18:58 05/22/16 17:52 05/22/16 17:52 05/22/16 17:52 05/22/16 17:52 - Medications Medications: Current Medications Ascorbic Acid (Vitamin C 500 Mg Tab) 500 mg PO DAILY [facility] Last Admin: 05/22/16 08:00 Dose: 500 mg Dextrose (Glutose 15) 0 gm PO ONCE PRN; Protocol PRN Reason: Hypoglycemia Protocol Dextrose (Dextrose 50% Inj) 0 ml IV STAT PRN; Protocol PRN Reason: Hyglycemia Protocol Ergocalciferol (Drisdol 50,000 Intl Units Cap) 1 cap PO Q7D [facility] Last Admin: 05/17/16 03:01 Dose: 1 cap Glucagon (Glucagen Diagnostic Kit) 0 mg IM STAT PRN; Protocol PRN Reason: Hypoglycemia Protocol Heparin Sodium (Porcine) (Heparin) 5,000 units SC Q12 [facility] PRN Reason: Protocol Last Admin: 05/22/16 08:00 Dose: 5,000 units Insulin Human Lispro (Humalog) 0 units SC ACHS [facility] PRN Reason: Protocol Last Admin: 05/22/16 17:08 Dose: Not Given Levothyroxine Sodium (Synthroid) 25 mcg PO DAILY@0630 [facility] Last Admin: 05/22/16 06:21 Dose: 25 mcg Vitamin B Complex/Vit C/Folic Acid (Nephro-Berkley) 1 tab PO DAILY [facility] Last Admin: 05/22/16 08:00 Dose: 1 tab - Labs Labs: 05/21/16 06:00 05/22/16 05:45 PT 11.7 SECONDS (9.6-11.2) H 05/11/16 18:21 INR 1.13 (0.92-1.08) H 05/11/16 18:21 APTT 28.0 SECONDS (23.3-32.5) 05/11/16 18:21
[2016-05-23] MEDS: Levothyroxine 25 MCG TAB PO SCH (06:07)
[2016-05-23] MEDS: Insulin Lispro (humaLOG) 100 Units/ml Inj SC SCH ×4 (06:52→22:47)
[2016-05-23 07:21] LABS: CALCIUM 8.1 mg/dL (8.4-10.2); POTASSIUM 4.2 MMOL/L (3.6-5.0)
--- NOTE | 2016-05-23 07:26 | CP.PCM.PN ---
<Giacomo Guerrero - Last Filed: 05/23/16 17:26> Subjective - Date & Time of Evaluation Date of Evaluation: 05/23/16 Time of Evaluation: 07:00 - Subjective Subjective: PT seen at bedside [facility] Dr. English. Pt is resting comfortably in bed. Denies any SOB, chest pain, N,V,D. Pt was able to maintain conversation and seems to be doing well. PT has remained afebrile overnight - Patients family wants pt transferred to [facility], because it is close to [facility]. Objective - Vital Signs/Intake and Output Vital Signs (last 24 hours): Temp Pulse Resp BP Pulse Ox 99 F 103 H 20 155/72 H 99 05/23/16 06:00 05/23/16 06:00 05/23/16 06:00 05/23/16 06:00 05/23/16 06:00 Intake and Output: 05/23/16 05/23/16 06:59 18:59 Intake Total 250 Balance 250 - Medications Medications: Current Medications Ascorbic Acid (Vitamin C 500 Mg Tab) 500 mg PO DAILY [facility] Last Admin: 05/22/16 08:00 Dose: 500 mg Dextrose (Glutose 15) 0 gm PO ONCE PRN; Protocol PRN Reason: Hypoglycemia Protocol Dextrose (Dextrose 50% Inj) 0 ml IV STAT PRN; Protocol PRN Reason: Hyglycemia Protocol Ergocalciferol (Drisdol 50,000 Intl Units Cap) 1 cap PO Q7D [facility] Last Admin: 05/17/16 03:01 Dose: 1 cap Glucagon (Glucagen Diagnostic Kit) 0 mg IM STAT PRN; Protocol PRN Reason: Hypoglycemia Protocol Heparin Sodium (Porcine) (Heparin) 5,000 units SC Q12 [facility] PRN Reason: Protocol Last Admin: 05/22/16 21:06 Dose: 5,000 units Insulin Human Lispro (Humalog) 0 units SC ACHS [facility] PRN Reason: Protocol Last Admin: 05/23/16 06:52 Dose: Not Given Levothyroxine Sodium (Synthroid) 25 mcg PO DAILY@0630 [facility] Last Admin: 05/23/16 06:07 Dose: 25 mcg Vitamin B Complex/Vit C/Folic Acid (Nephro-Berkley) 1 tab PO DAILY [facility] Last Admin: 05/22/16 08:00 Dose: 1 tab - Labs Labs: 05/21/16 06:00 05/22/16 05:45 PT 11.7 SECONDS (9.6-11.2) H 05/11/16 18:21 INR 1.13 (0.92-1.08) H 05/11/16 18:21 APTT 28.0 SECONDS (23.3-32.5) 05/11/16 18:21 - Constitutional Appears: No Acute Distress - Head Exam Head Exam: ATRAUMATIC, NORMAL INSPECTION, NORMOCEPHALIC - Eye Exam Eye Exam: Normal appearance - Respiratory Exam Respiratory Exam: Clear to Ausculation Bilateral, NORMAL BREATHING PATTERN. absent: Rhonchi, Wheezes - Cardiovascular Exam Cardiovascular Exam: REGULAR RHYTHM, +S1, +S2 - GI/Abdominal Exam GI & Abdominal Exam: Soft. 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 Consult Nephro - Na+:130 resolving, K+:4.2, creatinine: 5.4 - Recieved Dialysis yesterday - Spoke with Dr. Patterson, pt will require outpatient dialysis. Pt will require the non tunneled HD catheter to be replaced w/ a Tunneled HD catheter. Spoke with IR, they are on board. - HD tunneled catheter will be placed tommorrow morning. -F/U BMP 2) AMS, lethargy, multifactorial medication side effects, delirium -improving -vitals remain stable -reviewed MRI, CT of head, no acute findings - treating the patient for UTI and cellulitis; no abx for now - Spoke to neurology, hold kepra and monitor seizure like activity and mental status. -monitor inpatient 3) Fever (Afebrile ), -Odell cultures done, CXR reviewed\ - Blood culture no growth in 48 hours - No Stool salmonella, shigella, camplylobacter - Urine Culture No growth -C. Diff negative -Dr. Guzmán on board 4) Hypothyroidism - Levothyroxine 5) DVT prophylaxis - Hold heparin after 12 am for catheter placement tomorrow <Eddie Holm - Last Filed: 05/29/16 07:08> Objective - Vital Signs/Intake and Output Vital Signs (last 24 hours): Temp Pulse Resp BP Pulse Ox 99.1 F 102 H 18 148/64 97 05/28/16 22:24 05/28/16 22:24 05/28/16 22:24 05/28/16 22:24 05/28/16 22:24 - Medications Medications: Current Medications Ascorbic Acid (Vitamin C 500 Mg Tab) 500 mg PO DAILY [facility] Last Admin: 05/28/16 09:59 Dose: Not Given Dextrose (Glutose 15) 0 gm PO ONCE PRN; Protocol PRN Reason: Hypoglycemia Protocol Dextrose (Dextrose 50% Inj) 0 ml IV STAT PRN; Protocol PRN Reason: Hyglycemia Protocol Ergocalciferol (Drisdol 50,000 Intl Units Cap) 1 cap PO Q7D [facility] Last Admin: 05/24/16 00:45 Dose: Not Given Glucagon (Glucagen Diagnostic Kit) 0 mg IM STAT PRN; Protocol PRN Reason: Hypoglycemia Protocol Heparin Sodium (Porcine) (Heparin) 5,000 units SC Q12 [facility] PRN Reason: Protocol Last Admin: 05/28/16 21:29 Dose: 5,000 units Hydromorphone HCl (Dilaudid) 0.5 mg IVP Q15M PRN PRN Reason: Pain, moderate (4-7) Stop: 05/29/16 14:27 Linezolid (Zyvox 600mg/300ml D5w) 300 mls @ 300 mls/hr IVPB Q12 [facility] Last Admin: 05/28/16 21:32 Dose: 300 mls/hr Moxifloxacin HCl (Avelox Iv 400mg/250ml Ns) 250 mls @ 250 mls/hr IVPB DAILY [facility] Last Admin: 05/28/16 16:29 Dose: 250 mls/hr Insulin Human Lispro (Humalog) 0 units SC ACHS [facility] PRN Reason: Protocol Last Admin: 05/29/16 06:38 Dose: Not Given Levothyroxine Sodium (Synthroid) 25 mcg PO DAILY@0630 [facility] Last Admin: 05/28/16 05:49 Dose: 25 mcg Nystatin (Nystop Topical Powder) 1 applic TOP TID [facility] Last Admin: 05/28/16 16:31 Dose: 1 applic Ondansetron HCl (Zofran Inj) 4 mg IVP Q6 PRN PRN Reason: Nausea/Vomiting Last Admin: 05/27/16 17:28 Dose: 4 mg Vitamin B Complex/Vit C/Folic Acid (Nephro-Berkley) 1 tab PO DAILY [facility] Last Admin: 05/28/16 09:59 Dose: Not Given - Labs Labs: 05/28/16 06:30 05/28/16 06:30 PT 12.4 SECONDS (9.6-11.2) H 05/28/16 09:00 INR 1.19 (0.92-1.08) H 05/28/16 09:00 APTT 29.2 SECONDS (23.3-32.5) 05/28/16 09:00 Attending/Attestation - Attestation I have personally seen and examined this patient.: Yes I have fully participated in the care of the patient.: Yes I have reviewed all pertinent clinical information, including history, physical exam and plan: Yes
[2016-05-23] MEDS: Multivitamin Vitamin B Complex (Nephro-Vite) Tab PO SCH (11:15)
[2016-05-24] MEDS: Ergocalciferol 50,000 Intl Units Cap PO SCH (00:45)
[2016-05-24] MEDS: Levothyroxine 25 MCG TAB PO SCH (07:00)
[2016-05-24] MEDS: Insulin Lispro (humaLOG) 100 Units/ml Inj SC SCH ×4 (07:02→22:19)
[2016-05-24] MEDS: Multivitamin Vitamin B Complex (Nephro-Vite) Tab PO SCH (09:06)
--- NOTE | 2016-05-24 09:54 | CP.PCM.PN ---
Subjective - Date & Time of Evaluation Date of Evaluation: 05/24/16 Time of Evaluation: 20:00 - Subjective Subjective: - Pt seen resting comfortably in bed. She denies any new complaints. Denies SOB , chest pain, N/V/D. Slept well throughout the night. Continues to have a poor appetite. Pt was scheduled for for a tunneled HD catheter today but developed a low grade fever before the procedure, procedure is delayed untill furthur notice, will consult IR. - Dialysis received today Objective - Vital Signs/Intake and Output Vital Signs (last 24 hours): Temp Pulse Resp BP Pulse Ox 98.9 F 98 H 20 130/72 98 05/24/16 08:31 05/24/16 08:31 05/24/16 08:31 05/24/16 08:31 05/24/16 08:31 - Medications Medications: Current Medications Ascorbic Acid (Vitamin C 500 Mg Tab) 500 mg PO DAILY [facility] Last Admin: 05/24/16 09:06 Dose: Not Given Dextrose (Glutose 15) 0 gm PO ONCE PRN; Protocol PRN Reason: Hypoglycemia Protocol Dextrose (Dextrose 50% Inj) 0 ml IV STAT PRN; Protocol PRN Reason: Hyglycemia Protocol Ergocalciferol (Drisdol 50,000 Intl Units Cap) 1 cap PO Q7D [facility] Last Admin: 05/24/16 00:45 Dose: Not Given Glucagon (Glucagen Diagnostic Kit) 0 mg IM STAT PRN; Protocol PRN Reason: Hypoglycemia Protocol Insulin Human Lispro (Humalog) 0 units SC ACHS [facility] PRN Reason: Protocol Last Admin: 05/24/16 07:02 Dose: Not Given Levothyroxine Sodium (Synthroid) 25 mcg PO DAILY@0630 [facility] Last Admin: 05/24/16 07:00 Dose: Not Given Nystatin (Nystop Topical Powder) 1 applic TOP TID [facility] Vitamin B Complex/Vit C/Folic Acid (Nephro-Berkley) 1 tab PO DAILY [facility] Last Admin: 05/24/16 09:06 Dose: Not Given - Labs Labs: 05/21/16 06:00 05/23/16 05:50 PT 11.7 SECONDS (9.6-11.2) H 05/11/16 18:21 INR 1.13 (0.92-1.08) H 05/11/16 18:21 APTT 28.0 SECONDS (23.3-32.5) 05/11/16 18:21 - Constitutional Appears: No Acute Distress - Head Exam Head Exam: ATRAUMATIC, NORMAL INSPECTION, NORMOCEPHALIC - Eye Exam Eye Exam: Normal appearance - Respiratory Exam Respiratory Exam: Clear to Ausculation Bilateral, NORMAL BREATHING PATTERN - Cardiovascular Exam Cardiovascular Exam: REGULAR RHYTHM, +S1, +S2 - GI/Abdominal Exam GI & Abdominal Exam: Soft, Normal Bowel Sounds. 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 Patterson, pt will require outpatient dialysis. Pt will require the non tunneled HD catheter to be replaced w/ a Tunneled HD catheter. Spoke with IR, they are on board. - HD tunneled catheter was scheduled for today but was not done because pt developed low grade fever - Recieved dialysis today 2) AMS, lethargy, multifactorial medication side effects, delirium -improving -vitals remain stable -reviewed MRI, CT of head, no acute findings - treating the patient for UTI and cellulites; no abx for now - Spoke to neurology, hold kepra and monitor seizure like activity and mental status. -monitor inpatient 3) Fever (low grade fever) - PT had a low grade fever today and the IR intervention was canceled - Consult Dr. Norwood regarding fever - Dr. Guzmán on board 4) Hypothyroidism - Levothyroxine 5) DVT prophylaxis - Heparin
[2016-05-24] MEDS ORDERED: Lidocaine 1% Inj (20ml) ONE (12:03)
[2016-05-24] MEDS ORDERED: Midazolam 2 MG/2 ML VIAL ONE (12:13)
[2016-05-24 19:01] LABS: HEMATOCRIT 28.7 % (34.0-47.0); MEAN CELL VOLUME 76.4 fl (81.0-99.0); MEAN CORPUSCULAR HEMOGLOBIN 23.2 pg (27.0-31.0); MEAN CORPUSCULAR HGB CONC 30.3 g/dL (33.0-37.0); RED CELL DISTRIBUTION WIDTH 18.8 % (11.5-14.5); WHITE BLOOD COUNT 13.9 K/uL (4.8-10.8)
--- NOTE | 2016-05-24 19:13 | CP.PCM.PN ---
Subjective - Date & Time of Evaluation Date of Evaluation: 05/24/16 Time of Evaluation: 19:09 - Subjective Subjective: ID NOTE STILL HAVING LOW GRADE TEMPS WBC:13,8 CULTURES TAKEN AND ARE PENDING DISCUSSED C RESIDENT (RENATE WEINER) START ZYVOX 600MG IVPB Q12H Objective - Vital Signs/Intake and Output Vital Signs (last 24 hours): Temp Pulse Resp BP Pulse Ox 99.3 F 114 H 20 145/76 100 05/24/16 17:47 05/24/16 17:47 05/24/16 17:47 05/24/16 17:47 05/24/16 17:47 - Medications Medications: Current Medications Ascorbic Acid (Vitamin C 500 Mg Tab) 500 mg PO DAILY [facility] Last Admin: 05/24/16 09:06 Dose: Not Given Dextrose (Glutose 15) 0 gm PO ONCE PRN; Protocol PRN Reason: Hypoglycemia Protocol Dextrose (Dextrose 50% Inj) 0 ml IV STAT PRN; Protocol PRN Reason: Hyglycemia Protocol Ergocalciferol (Drisdol 50,000 Intl Units Cap) 1 cap PO Q7D [facility] Last Admin: 05/24/16 00:45 Dose: Not Given Glucagon (Glucagen Diagnostic Kit) 0 mg IM STAT PRN; Protocol PRN Reason: Hypoglycemia Protocol Heparin Sodium (Porcine) (Heparin) 5,000 units SC Q12 [facility] PRN Reason: Protocol Linezolid (Zyvox 600mg/300ml D5w) 300 mls @ 300 mls/hr IVPB Q12 [facility] Insulin Human Lispro (Humalog) 0 units SC ACHS [facility] PRN Reason: Protocol Last Admin: 05/24/16 17:51 Dose: Not Given Levothyroxine Sodium (Synthroid) 25 mcg PO DAILY@0630 [facility] Last Admin: 05/24/16 07:00 Dose: Not Given Nystatin (Nystop Topical Powder) 1 applic TOP TID [facility] Vitamin B Complex/Vit C/Folic Acid (Nephro-Berkley) 1 tab PO DAILY [facility] Last Admin: 05/24/16 09:06 Dose: Not Given - Labs Labs: 05/24/16 18:15 05/23/16 05:50 PT 11.7 SECONDS (9.6-11.2) H 05/11/16 18:21 INR 1.13 (0.92-1.08) H 05/11/16 18:21 APTT 28.0 SECONDS (23.3-32.5) 05/11/16 18:21
[2016-05-24 19:20] LABS: ALB/GLOB RATIO 0.7 (1.0-2.1); BILIRUBIN,TOTAL 0.3 mg/dl (0.2-1.3); CALCIUM 8.1 mg/dL (8.4-10.2); POTASSIUM 4.2 MMOL/L (3.6-5.0); TOTAL PROTEIN 5.3 G/DL (6.3-8.2)
[2016-05-24] MEDS: Linezolid 600 mg in D5W 300 ml 300 ML IVPB SCH (22:17)
--- NOTE | 2016-05-25 06:16 | CP.PCM.PN ---
<Giacomo Guerrero - Last Filed: 05/25/16 14:57> Subjective - Date & Time of Evaluation Date of Evaluation: 05/25/16 Time of Evaluation: 07:10 - Subjective Subjective: - Patient with baseline dementia was seen at bedside resting comfortably. Pt states she is feeling well, but has a decreased appetite. As per patient she had a episode of vomiting yesterday when she tried to eat but nurse was not aware of the event. - Patient slept well throughout the night and had a bowl movement. - Tunneled catheter could not be inserted yesterday by IR because of a low grade fever and tachycardia. Will attempt to do the procedure on Saturday. - Spoke with family, updated on patient care, all questions answered. Objective - Vital Signs/Intake and Output Vital Signs (last 24 hours): Temp Pulse Resp BP Pulse Ox 98.2 F 109 H 20 128/61 99 05/25/16 03:50 05/24/16 21:55 05/24/16 21:55 05/24/16 21:55 05/24/16 21:55 - Medications Medications: Current Medications Ascorbic Acid (Vitamin C 500 Mg Tab) 500 mg PO DAILY [facility] Last Admin: 05/24/16 09:06 Dose: Not Given Dextrose (Glutose 15) 0 gm PO ONCE PRN; Protocol PRN Reason: Hypoglycemia Protocol Dextrose (Dextrose 50% Inj) 0 ml IV STAT PRN; Protocol PRN Reason: Hyglycemia Protocol Ergocalciferol (Drisdol 50,000 Intl Units Cap) 1 cap PO Q7D [facility] Last Admin: 05/24/16 00:45 Dose: Not Given Glucagon (Glucagen Diagnostic Kit) 0 mg IM STAT PRN; Protocol PRN Reason: Hypoglycemia Protocol Heparin Sodium (Porcine) (Heparin) 5,000 units SC Q12 [facility] PRN Reason: Protocol Last Admin: 05/24/16 22:18 Dose: 5,000 units Linezolid (Zyvox 600mg/300ml D5w) 300 mls @ 300 mls/hr IVPB Q12 [facility] Last Admin: 05/24/16 22:17 Dose: 300 mls/hr Insulin Human Lispro (Humalog) 0 units SC ACHS [facility] PRN Reason: Protocol Last Admin: 05/24/16 22:19 Dose: Not Given Levothyroxine Sodium (Synthroid) 25 mcg PO DAILY@0630 [facility] Last Admin: 05/24/16 07:00 Dose: Not Given Nystatin (Nystop Topical Powder) 1 applic TOP TID [facility] Vitamin B Complex/Vit C/Folic Acid (Nephro-Berkley) 1 tab PO DAILY [facility] Last Admin: 05/24/16 09:06 Dose: Not Given - Labs Labs: 05/24/16 18:15 05/24/16 18:15 PT 11.7 SECONDS (9.6-11.2) H 05/11/16 18:21 INR 1.13 (0.92-1.08) H 05/11/16 18:21 APTT 28.0 SECONDS (23.3-32.5) 05/11/16 18:21 - Constitutional Appears: No Acute Distress - Head Exam Head Exam: NORMAL INSPECTION - Eye Exam Eye Exam: Normal appearance - ENT Exam ENT Exam: Mucous Membranes Moist - Respiratory Exam Respiratory Exam: Clear to Ausculation Bilateral, NORMAL BREATHING PATTERN - Cardiovascular Exam Cardiovascular Exam: REGULAR RHYTHM, +S1, +S2 - GI/Abdominal Exam GI & Abdominal Exam: Soft, Normal Bowel Sounds. absent: Tenderness - Extremities Exam Extremities Exam: Normal Inspection Additional comments: 1+ piting edema - Neurological Exam Neurological Exam: Alert, Awake, Oriented x3 Assessment and Plan - Assessment and Plan (Free Text) Assessment: 1)Acute on chronic kidney failure, multifactorial, drug toxicity, fluid overload , cardiac etiology -monitor BUN/Cr - Avoid nephrotoxic drugs -Hairspring Cutter Dr Patterson appreciated - Na+:135 resolving, K+:4.4, creatinine: 3.6 - Spoke with Dr. Patterson, pt will require outpatient dialysis. Pt will require the non tunneled HD catheter to be replaced w/ a Tunneled HD catheter. Spoke with IR, they are on board. - HD tunneled catheter was scheduled for yesterday but was not done because pt developed low grade fever, will be done on Saturday. - Recieved dialysis yesterday - F/U CMP 2) AMS, lethargy, multifactorial medication side effects, delirium (Stable) -improving -vitals remain stable -reviewed MRI, CT of head, no acute findings -monitor inpatient 3) Fever (Afebrile) - F/U Blood culture - Urine culture no growth - Consult Dr. Norwood appreciated - Linezolid 600mg Q12 - F/U CBC 4) Hypothyroidism - Levothyroxine 5) DVT prophylaxis - Heparin <Ta Lipscomb - Last Filed: 05/28/16 06:41> Objective - Vital Signs/Intake and Output Vital Signs (last 24 hours): Temp Pulse Resp BP Pulse Ox 99.9 F H 101 H 17 137/67 99 05/27/16 23:00 05/27/16 23:00 05/27/16 23:00 05/27/16 23:00 05/27/16 23:00 - Medications Medications: Current Medications Ascorbic Acid (Vitamin C 500 Mg Tab) 500 mg PO DAILY [facility] Last Admin: 05/27/16 09:33 Dose: Not Given Dextrose (Glutose 15) 0 gm PO ONCE PRN; Protocol PRN Reason: Hypoglycemia Protocol Dextrose (Dextrose 50% Inj) 0 ml IV STAT PRN; Protocol PRN Reason: Hyglycemia Protocol Ergocalciferol (Drisdol 50,000 Intl Units Cap) 1 cap PO Q7D [facility] Last Admin: 05/24/16 00:45 Dose: Not Given Glucagon (Glucagen Diagnostic Kit) 0 mg IM STAT PRN; Protocol PRN Reason: Hypoglycemia Protocol Heparin Sodium (Porcine) (Heparin) 5,000 units SC Q12 [facility] PRN Reason: Protocol Last Admin: 05/27/16 08:41 Dose: 5,000 units Linezolid (Zyvox 600mg/300ml D5w) 300 mls @ 300 mls/hr IVPB Q12 [facility] Last Admin: 05/27/16 21:51 Dose: 300 mls/hr Moxifloxacin HCl (Avelox Iv 400mg/250ml Ns) 250 mls @ 250 mls/hr IVPB DAILY [facility] Last Admin: 05/27/16 08:37 Dose: 250 mls/hr Insulin Human Lispro (Humalog) 0 units SC ACHS [facility] PRN Reason: Protocol Last Admin: 05/27/16 22:00 Dose: Not Given Levothyroxine Sodium (Synthroid) 25 mcg PO DAILY@0630 [facility] Last Admin: 05/28/16 05:49 Dose: 25 mcg Nystatin (Nystop Topical Powder) 1 applic TOP TID [facility] Last Admin: 05/27/16 17:28 Dose: 1 applic Ondansetron HCl (Zofran Inj) 4 mg IVP Q6 PRN PRN Reason: Nausea/Vomiting Last Admin: 05/27/16 17:28 Dose: 4 mg Vitamin B Complex/Vit C/Folic Acid (Nephro-Berkley) 1 tab PO DAILY [facility] Last Admin: 05/27/16 09:28 Dose: 1 tab - Labs Labs: 05/27/16 05:30 05/27/16 05:30 PT 11.7 SECONDS (9.6-11.2) H 05/11/16 18:21 INR 1.13 (0.92-1.08) H 05/11/16 18:21 APTT 28.0 SECONDS (23.3-32.5) 05/11/16 18:21 Attending/Attestation - Attestation I have personally seen and examined this patient.: Yes I have fully participated in the care of the patient.: Yes I have reviewed all pertinent clinical information, including history, physical exam and plan: Yes
[2016-05-25] MEDS: Levothyroxine 25 MCG TAB PO SCH (06:25)
[2016-05-25] MEDS: Insulin Lispro (humaLOG) 100 Units/ml Inj SC SCH ×4 (06:50→22:31)
[2016-05-25 07:18] LABS: ALB/GLOB RATIO 0.7 (1.0-2.1); BILIRUBIN,TOTAL 0.3 mg/dl (0.2-1.3); CALCIUM 7.9 mg/dL (8.4-10.2); POTASSIUM 4.4 MMOL/L (3.6-5.0); TOTAL PROTEIN 5.2 G/DL (6.3-8.2)
[2016-05-25 08:27] LABS: HEMATOCRIT 28.1 % (34.0-47.0); MEAN CELL VOLUME 75.3 fl (81.0-99.0); MEAN CORPUSCULAR HEMOGLOBIN 23.8 pg (27.0-31.0); MEAN CORPUSCULAR HGB CONC 31.6 g/dL (33.0-37.0); RED CELL DISTRIBUTION WIDTH 19.2 % (11.5-14.5); WHITE BLOOD COUNT 13.4 K/uL (4.8-10.8)
[2016-05-25] MEDS: Multivitamin Vitamin B Complex (Nephro-Vite) Tab PO SCH (10:15)
[2016-05-25] MEDS: Linezolid 600 mg in D5W 300 ml 300 ML IVPB SCH ×2 (10:19→21:15)
--- NOTE | 2016-05-25 18:53 | CP.PCM.PN ---
Subjective - Date & Time of Evaluation Date of Evaluation: 05/25/16 Time of Evaluation: 15:00 - Subjective Subjective: SEEN ON RENAL F/U ON HD T T S APPEARS CLINICALLY BETTER APPETITE REMAINS VERY POOR Objective - Vital Signs/Intake and Output Vital Signs (last 24 hours): Temp Pulse Resp BP Pulse Ox 99.6 F 104 H 20 160/64 H 100 05/25/16 18:13 05/25/16 18:13 05/25/16 18:13 05/25/16 18:13 05/25/16 18:13 - Medications Medications: Current Medications Ascorbic Acid (Vitamin C 500 Mg Tab) 500 mg PO DAILY [facility] Last Admin: 05/25/16 10:17 Dose: 500 mg Dextrose (Glutose 15) 0 gm PO ONCE PRN; Protocol PRN Reason: Hypoglycemia Protocol Dextrose (Dextrose 50% Inj) 0 ml IV STAT PRN; Protocol PRN Reason: Hyglycemia Protocol Ergocalciferol (Drisdol 50,000 Intl Units Cap) 1 cap PO Q7D [facility] Last Admin: 05/24/16 00:45 Dose: Not Given Glucagon (Glucagen Diagnostic Kit) 0 mg IM STAT PRN; Protocol PRN Reason: Hypoglycemia Protocol Heparin Sodium (Porcine) (Heparin) 5,000 units SC Q12 [facility] PRN Reason: Protocol Last Admin: 05/25/16 10:14 Dose: 5,000 units Linezolid (Zyvox 600mg/300ml D5w) 300 mls @ 300 mls/hr IVPB Q12 [facility] Last Admin: 05/25/16 10:19 Dose: 300 mls/hr Insulin Human Lispro (Humalog) 0 units SC ACHS [facility] PRN Reason: Protocol Last Admin: 05/25/16 18:36 Dose: Not Given Levothyroxine Sodium (Synthroid) 25 mcg PO DAILY@0630 [facility] Last Admin: 05/25/16 06:25 Dose: 25 mcg Nystatin (Nystop Topical Powder) 1 applic TOP TID [facility] Last Admin: 05/25/16 12:58 Dose: 1 applic Vitamin B Complex/Vit C/Folic Acid (Nephro-Berkley) 1 tab PO DAILY [facility] Last Admin: 05/25/16 10:15 Dose: 1 tab - Labs Labs: 05/25/16 06:20 05/25/16 06:20 PT 11.7 SECONDS (9.6-11.2) H 05/11/16 18:21 INR 1.13 (0.92-1.08) H 05/11/16 18:21 APTT 28.0 SECONDS (23.3-32.5) 05/11/16 18:21 Assessment and Plan - Assessment and Plan (Free Text) Assessment: SHRAVAN ON HD T S ANEMIA OF CKD .. H/H STABLE MULTIPLE CO MORBIDITIES SUGG : REMOVE THE CURRENT HD CATH IMMEDIATELY AFTER THE HD TOMORROW AND LEAVE PT CATH FREE FOR 24- 48 HOURS WITHIUT CATH THEN OM SATURDAY TO HAVE A NEW TUNNELLED HD CATH C/O CURRENT CARE
[2016-05-26] MEDS: Levothyroxine 25 MCG TAB PO SCH (06:25)
[2016-05-26 08:12] LABS: ALB/GLOB RATIO 0.7 (1.0-2.1); BILIRUBIN,TOTAL 0.3 mg/dl (0.2-1.3); CALCIUM 7.9 mg/dL (8.4-10.2); POTASSIUM 4.7 MMOL/L (3.6-5.0); TOTAL PROTEIN 5.4 G/DL (6.3-8.2)
[2016-05-26] MEDS: Insulin Lispro (humaLOG) 100 Units/ml Inj SC SCH ×4 (08:18→22:00)
[2016-05-26 08:29] LABS: HEMATOCRIT 27.8 % (34.0-47.0); MEAN CORPUSCULAR HEMOGLOBIN 23.7 pg (27.0-31.0); MEAN CORPUSCULAR HGB CONC 30.8 g/dL (33.0-37.0); RED CELL DISTRIBUTION WIDTH 19.4 % (11.5-14.5); WHITE BLOOD COUNT 13.6 K/uL (4.8-10.8)
[2016-05-26] MEDS: Multivitamin Vitamin B Complex (Nephro-Vite) Tab PO SCH (09:20)
[2016-05-26] MEDS: Linezolid 600 mg in D5W 300 ml 300 ML IVPB SCH ×2 (09:20→21:20)
--- NOTE | 2016-05-26 10:04 | CP.PCM.PN ---
Subjective - Date & Time of Evaluation Date of Evaluation: 05/26/16 Time of Evaluation: 09:25 - Subjective Subjective: No overnight or acute events. Patient remains afebrile. Alert and cooperative with exam and questioning. Denies chest pain, shortness of breath, palpitations. Reports mild nausea. No vomitus. No abdominal pain. Denies diarrhea. Objective - Vital Signs/Intake and Output Vital Signs (last 24 hours): Temp Pulse Resp BP Pulse Ox 97.9 F 83 20 127/80 97 05/26/16 08:45 05/26/16 08:45 05/26/16 08:45 05/26/16 08:45 05/26/16 08:45 - Medications Medications: Current Medications Ascorbic Acid (Vitamin C 500 Mg Tab) 500 mg PO DAILY [facility] Last Admin: 05/26/16 09:20 Dose: 500 mg Dextrose (Glutose 15) 0 gm PO ONCE PRN; Protocol PRN Reason: Hypoglycemia Protocol Dextrose (Dextrose 50% Inj) 0 ml IV STAT PRN; Protocol PRN Reason: Hyglycemia Protocol Ergocalciferol (Drisdol 50,000 Intl Units Cap) 1 cap PO Q7D [facility] Last Admin: 05/24/16 00:45 Dose: Not Given Glucagon (Glucagen Diagnostic Kit) 0 mg IM STAT PRN; Protocol PRN Reason: Hypoglycemia Protocol Heparin Sodium (Porcine) (Heparin) 5,000 units SC Q12 [facility] PRN Reason: Protocol Last Admin: 05/26/16 09:19 Dose: 5,000 units Linezolid (Zyvox 600mg/300ml D5w) 300 mls @ 300 mls/hr IVPB Q12 [facility] Last Admin: 05/26/16 09:20 Dose: 300 mls/hr Insulin Human Lispro (Humalog) 0 units SC ACHS [facility] PRN Reason: Protocol Last Admin: 05/26/16 08:18 Dose: Not Given Levothyroxine Sodium (Synthroid) 25 mcg PO DAILY@0630 [facility] Last Admin: 05/26/16 06:25 Dose: 25 mcg Nystatin (Nystop Topical Powder) 1 applic TOP TID [facility] Last Admin: 05/26/16 09:20 Dose: 1 applic Vitamin B Complex/Vit C/Folic Acid (Nephro-Berkley) 1 tab PO DAILY [facility] Last Admin: 05/26/16 09:20 Dose: 1 tab - Labs Labs: 05/26/16 06:30 05/26/16 06:30 PT 11.7 SECONDS (9.6-11.2) H 05/11/16 18:21 INR 1.13 (0.92-1.08) H 05/11/16 18:21 APTT 28.0 SECONDS (23.3-32.5) 05/11/16 18:21 - Head Exam Head Exam: ATRAUMATIC, NORMOCEPHALIC - Eye Exam Eye Exam: EOMI, Normal appearance - Neck Exam Additional comments: IJ Nontunneled catheter patent- no signs of acute superficial infection - Cardiovascular Exam Cardiovascular Exam: REGULAR RHYTHM, +S1, +S2 - GI/Abdominal Exam GI & Abdominal Exam: Soft. 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 Norwood appreciated Linezolid 600mg Q12 Follow up CBC 4) Hypothyroidism - Levothyroxine continued 5) DVT prophylaxis - Heparin
--- NOTE | 2016-05-26 17:23 | CP.PCM.PN ---
Subjective - Date & Time of Evaluation Date of Evaluation: 05/26/16 Time of Evaluation: 17:20 - Subjective Subjective: ID NOTE NO TEMP SO FAR TODAY WBC IS 13.O TO 13.9, WILL AD AVELOX FOR 48 HRS SERIAL WBCs CREATININE IS 4.2 Objective - Vital Signs/Intake and Output Vital Signs (last 24 hours): Temp Pulse Resp BP Pulse Ox 98.8 F 99 H 20 160/87 H 100 05/26/16 16:03 05/26/16 16:03 05/26/16 16:03 05/26/16 16:03 05/26/16 16:03 - Medications Medications: Current Medications Ascorbic Acid (Vitamin C 500 Mg Tab) 500 mg PO DAILY [facility] Last Admin: 05/26/16 09:20 Dose: 500 mg Dextrose (Glutose 15) 0 gm PO ONCE PRN; Protocol PRN Reason: Hypoglycemia Protocol Dextrose (Dextrose 50% Inj) 0 ml IV STAT PRN; Protocol PRN Reason: Hyglycemia Protocol Ergocalciferol (Drisdol 50,000 Intl Units Cap) 1 cap PO Q7D [facility] Last Admin: 05/24/16 00:45 Dose: Not Given Glucagon (Glucagen Diagnostic Kit) 0 mg IM STAT PRN; Protocol PRN Reason: Hypoglycemia Protocol Heparin Sodium (Porcine) (Heparin) 5,000 units SC Q12 [facility] PRN Reason: Protocol Last Admin: 05/26/16 09:19 Dose: 5,000 units Linezolid (Zyvox 600mg/300ml D5w) 300 mls @ 300 mls/hr IVPB Q12 [facility] Last Admin: 05/26/16 09:20 Dose: 300 mls/hr Moxifloxacin HCl (Avelox Iv 400mg/250ml Ns) 250 mls @ 250 mls/hr IVPB DAILY [facility] Insulin Human Lispro (Humalog) 0 units SC ACHS [facility] PRN Reason: Protocol Last Admin: 05/26/16 14:43 Dose: Not Given Levothyroxine Sodium (Synthroid) 25 mcg PO DAILY@0630 [facility] Last Admin: 05/26/16 06:25 Dose: 25 mcg Nystatin (Nystop Topical Powder) 1 applic TOP TID [facility] Last Admin: 05/26/16 16:36 Dose: 1 applic Ondansetron HCl (Zofran Inj) 4 mg IVP Q6 PRN PRN Reason: Nausea/Vomiting Vitamin B Complex/Vit C/Folic Acid (Nephro-Berkley) 1 tab PO DAILY [facility] Last Admin: 05/26/16 09:20 Dose: 1 tab - Labs Labs: 05/26/16 06:30 05/26/16 06:30 PT 11.7 SECONDS (9.6-11.2) H 05/11/16 18:21 INR 1.13 (0.92-1.08) H 05/11/16 18:21 APTT 28.0 SECONDS (23.3-32.5) 05/11/16 18:21
[2016-05-27] MEDS: Levothyroxine 25 MCG TAB PO SCH (07:08)
[2016-05-27] MEDS: Insulin Lispro (humaLOG) 100 Units/ml Inj SC SCH ×4 (07:08→22:00)
[2016-05-27 07:54] LABS: BASO # 0.1 K/uL (0.0-0.2); BASO % 0.9 % (0.0-2.0); EOS # 1.4 K/uL (0.0-0.7); EOS % 10.2 % (0.0-4.0); HEMATOCRIT 27.4 % (34.0-47.0); LYMPH # 2.5 K/uL (1.0-4.3); LYMPH % 17.8 % (20.0-40.0); MEAN CELL VOLUME 76.6 fl (81.0-99.0); MEAN CORPUSCULAR HEMOGLOBIN 23.5 pg (27.0-31.0); MEAN CORPUSCULAR HGB CONC 30.6 g/dL (33.0-37.0); MEAN PLATELET VOLUME 8.5 fl (7.2-11.7); MONO # 0.9 K/uL (0.0-0.8); MONO % 6.6 % (0.0-10.0); NEUT # 9.2 K/uL (1.8-7.0); NEUT % 64.5 % (50.0-75.0); NRBC % 0.1 % (0.0-0.0); RED CELL DISTRIBUTION WIDTH 19.1 % (11.5-14.5); WHITE BLOOD COUNT 14.2 K/uL (4.8-10.8)
[2016-05-27 08:11] LABS: BILIRUBIN,TOTAL 0.5 mg/dl (0.2-1.3); CALCIUM 7.6 mg/dL (8.4-10.2); MAGNESIUM 1.5 MG/DL (1.6-2.3); PHOSPHOROUS 3.1 mg/dl (2.5-4.5); POTASSIUM 3.8 MMOL/L (3.6-5.0); TOTAL PROTEIN 5.1 G/DL (6.3-8.2)
[2016-05-27 08:17] LABS: ALB/GLOB RATIO 0.8 (1.0-2.1)
[2016-05-27] MEDS: Moxifloxacin IV 400mg/250ml NS 250 ML IVPB SCH (08:37)
[2016-05-27] MEDS: Multivitamin Vitamin B Complex (Nephro-Vite) Tab PO SCH ×2 (08:40→09:28)
--- NOTE | 2016-05-27 10:34 | CP.PCM.PN ---
Addendum entered and electronically signed by Giacomo Guerrero MD 05/27/16 13:31 : Hold Heparin evening dose and NPO after midnight for tunneled catheter placement tomorrow in the am. Original Note: Subjective - Date & Time of Evaluation Date of Evaluation: 05/27/16 Time of Evaluation: 08:00 - Subjective Subjective: Patient was was seen resting comfortably in bed and has remained afebrile overnight. Patient continues to have a decreased appetite she claims to have had an episode of vomiting, but the current nurse and the overnight night nurse have no knowledge of this. Denies chest pain, SOB, palpitations. Objective - Vital Signs/Intake and Output Vital Signs (last 24 hours): Temp Pulse Resp BP Pulse Ox 99.4 F 105 H 20 136/72 98 05/27/16 09:00 05/27/16 09:00 05/27/16 09:00 05/27/16 09:00 05/27/16 09:00 - Medications Medications: Current Medications Ascorbic Acid (Vitamin C 500 Mg Tab) 500 mg PO DAILY [facility] Last Admin: 05/27/16 09:33 Dose: Not Given Dextrose (Glutose 15) 0 gm PO ONCE PRN; Protocol PRN Reason: Hypoglycemia Protocol Dextrose (Dextrose 50% Inj) 0 ml IV STAT PRN; Protocol PRN Reason: Hyglycemia Protocol Ergocalciferol (Drisdol 50,000 Intl Units Cap) 1 cap PO Q7D [facility] Last Admin: 05/24/16 00:45 Dose: Not Given Glucagon (Glucagen Diagnostic Kit) 0 mg IM STAT PRN; Protocol PRN Reason: Hypoglycemia Protocol Heparin Sodium (Porcine) (Heparin) 5,000 units SC Q12 [facility] PRN Reason: Protocol Last Admin: 05/27/16 08:41 Dose: 5,000 units Linezolid (Zyvox 600mg/300ml D5w) 300 mls @ 300 mls/hr IVPB Q12 [facility] Last Admin: 05/26/16 21:20 Dose: 300 mls/hr Moxifloxacin HCl (Avelox Iv 400mg/250ml Ns) 250 mls @ 250 mls/hr IVPB DAILY [facility] Last Admin: 05/27/16 08:37 Dose: 250 mls/hr Insulin Human Lispro (Humalog) 0 units SC ACHS [facility] PRN Reason: Protocol Last Admin: 05/27/16 07:08 Dose: Not Given Levothyroxine Sodium (Synthroid) 25 mcg PO DAILY@0630 [facility] Last Admin: 05/27/16 07:08 Dose: 25 mcg Nystatin (Nystop Topical Powder) 1 applic TOP TID [facility] Last Admin: 05/27/16 09:33 Dose: 1 applic Ondansetron HCl (Zofran Inj) 4 mg IVP Q6 PRN PRN Reason: Nausea/Vomiting Last Admin: 05/27/16 08:41 Dose: 4 mg Vitamin B Complex/Vit C/Folic Acid (Nephro-Berkley) 1 tab PO DAILY [facility] Last Admin: 05/27/16 09:28 Dose: 1 tab - Labs Labs: 05/27/16 05:30 05/27/16 05:30 PT 11.7 SECONDS (9.6-11.2) H 05/11/16 18:21 INR 1.13 (0.92-1.08) H 05/11/16 18:21 APTT 28.0 SECONDS (23.3-32.5) 05/11/16 18:21 - Constitutional Appears: No Acute Distress - Head Exam Head Exam: ATRAUMATIC, NORMAL INSPECTION, NORMOCEPHALIC - Eye Exam Eye Exam: Normal appearance - Respiratory Exam Respiratory Exam: Clear to Ausculation Bilateral, NORMAL BREATHING PATTERN - Cardiovascular Exam Cardiovascular Exam: REGULAR RHYTHM, +S1, +S2 - GI/Abdominal Exam GI & Abdominal Exam: Soft, Tenderness, Normal Bowel Sounds - Extremities Exam Additional comments: B/L scant erythema most likely secondary to chronic skin changes, cellulites has resolved - Neurological Exam Neurological Exam: Alert, Awake, CN II-XII Intact, Oriented x3 Assessment and Plan - Assessment and Plan (Free Text) Assessment: 1)Acute on chronic kidney failure, Multifactorial: drug toxicity, fluid overload, cardiac etiology Continue monitor BUN/Cr Avoid nephrotoxic drugs Chief Information Security Officer Dr Patterson appreciated HD tunneled catheter will be done on Saturday HD was done yesterday Creatine: 3.2 - F/U with IR tomorrow about tunneled catheter for outpatient dialysis 2) AMS, lethargy, multifactorial medication side effects, delirium (Stable) Improving vitals remain stable MRI, CT of head, no acute findings monitor inpatient 3) Fever WBC: 14.2 Afebrile overnight Blood cultures no growth Urine culture no growth Consult Dr. Norwood appreciated Linezolid 600mg Q12 ID added Moxifloxacin 250ml Daily for 48 hours F/U Serial WBC 4) Nausea most likely medication induced -Zofran Q6 PRN 5) Hypothyroidism - Levothyroxine continued 6) DVT prophylaxis - Heparin
[2016-05-27] MEDS: Linezolid 600 mg in D5W 300 ml 300 ML IVPB SCH ×2 (11:11→21:51)
--- NOTE | 2016-05-27 19:03 | CP.PCM.PN ---
Subjective - Date & Time of Evaluation Date of Evaluation: 05/27/16 Time of Evaluation: 15:00 - Subjective Subjective: SEEN ON RENAL F/U REMAINS EXTUBATED .. IN NAD OFF IVF RENAL FUNCTION AND ELECTROLYTES ARE WNL ALL PREVIOUS EMR REVIEWD Objective - Vital Signs/Intake and Output Vital Signs (last 24 hours): Temp Pulse Resp BP Pulse Ox 99.2 F 96 H 20 125/62 99 05/27/16 17:00 05/27/16 17:00 05/27/16 17:00 05/27/16 17:00 05/27/16 17:00 - Medications Medications: Current Medications Ascorbic Acid (Vitamin C 500 Mg Tab) 500 mg PO DAILY [facility] Last Admin: 05/27/16 09:33 Dose: Not Given Dextrose (Glutose 15) 0 gm PO ONCE PRN; Protocol PRN Reason: Hypoglycemia Protocol Dextrose (Dextrose 50% Inj) 0 ml IV STAT PRN; Protocol PRN Reason: Hyglycemia Protocol Ergocalciferol (Drisdol 50,000 Intl Units Cap) 1 cap PO Q7D [facility] Last Admin: 05/24/16 00:45 Dose: Not Given Glucagon (Glucagen Diagnostic Kit) 0 mg IM STAT PRN; Protocol PRN Reason: Hypoglycemia Protocol Heparin Sodium (Porcine) (Heparin) 5,000 units SC Q12 [facility] PRN Reason: Protocol Last Admin: 05/27/16 08:41 Dose: 5,000 units Linezolid (Zyvox 600mg/300ml D5w) 300 mls @ 300 mls/hr IVPB Q12 [facility] Last Admin: 05/27/16 11:11 Dose: 300 mls/hr Moxifloxacin HCl (Avelox Iv 400mg/250ml Ns) 250 mls @ 250 mls/hr IVPB DAILY [facility] Last Admin: 05/27/16 08:37 Dose: 250 mls/hr Insulin Human Lispro (Humalog) 0 units SC ACHS [facility] PRN Reason: Protocol Last Admin: 05/27/16 17:26 Dose: Not Given Levothyroxine Sodium (Synthroid) 25 mcg PO DAILY@0630 [facility] Last Admin: 05/27/16 07:08 Dose: 25 mcg Nystatin (Nystop Topical Powder) 1 applic TOP TID [facility] Last Admin: 05/27/16 17:28 Dose: 1 applic Ondansetron HCl (Zofran Inj) 4 mg IVP Q6 PRN PRN Reason: Nausea/Vomiting Last Admin: 05/27/16 17:28 Dose: 4 mg Vitamin B Complex/Vit C/Folic Acid (Nephro-Berkley) 1 tab PO DAILY [facility] Last Admin: 05/27/16 09:28 Dose: 1 tab - Labs Labs: 05/27/16 05:30 05/27/16 05:30 PT 11.7 SECONDS (9.6-11.2) H 05/11/16 18:21 INR 1.13 (0.92-1.08) H 05/11/16 18:21 APTT 28.0 SECONDS (23.3-32.5) 05/11/16 18:21 Assessment and Plan - Assessment and Plan (Free Text) Assessment: SHRAVAN .. RENAL FUNCTION WNL ELECTROLYTES ABNORMALITIES .. LYTES ARE NORMAL P : C/O CURRENT CARE
[2016-05-28] MEDS: Levothyroxine 25 MCG TAB PO SCH (05:49)
[2016-05-28 07:05] LABS: HEMATOCRIT 28.1 % (34.0-47.0); MEAN CELL VOLUME 76.9 fl (81.0-99.0); MEAN CORPUSCULAR HEMOGLOBIN 23.7 pg (27.0-31.0); MEAN CORPUSCULAR HGB CONC 30.8 g/dL (33.0-37.0); RED CELL DISTRIBUTION WIDTH 19.4 % (11.5-14.5); WHITE BLOOD COUNT 12.3 K/uL (4.8-10.8)
[2016-05-28 07:18] LABS: CALCIUM 7.6 mg/dL (8.4-10.2)
[2016-05-28] MEDS: Insulin Lispro (humaLOG) 100 Units/ml Inj SC SCH ×4 (07:43→22:45)
--- NOTE | 2016-05-28 09:43 | CP.PCM.PN ---
Addendum entered and electronically signed by Giacomo Guerrero MD 05/28/16 15:06 : PT had the HD tunneled catheter placed today. [facility] and antibiotics Avelox 400 mg PO. Original Note: <Giacomo Guerrero - Last Filed: 05/28/16 13:53> Subjective - Date & Time of Evaluation Date of Evaluation: 05/28/16 Time of Evaluation: 07:30 - Subjective Subjective: - Pt was seen resting in bed comfortably. She stayed afebrile overnight. Pt continues to have a decreased appetite. Denies chest pain, SOB. Pt is going for placement of tunneled catheter today. Objective - Vital Signs/Intake and Output Vital Signs (last 24 hours): Temp Pulse Resp BP Pulse Ox 98.6 F 96 H 20 149/68 100 05/28/16 08:45 05/28/16 08:45 05/28/16 08:45 05/28/16 08:45 05/28/16 08:45 - Medications Medications: Current Medications Ascorbic Acid (Vitamin C 500 Mg Tab) 500 mg PO DAILY [facility] Last Admin: 05/27/16 09:33 Dose: Not Given Dextrose (Glutose 15) 0 gm PO ONCE PRN; Protocol PRN Reason: Hypoglycemia Protocol Dextrose (Dextrose 50% Inj) 0 ml IV STAT PRN; Protocol PRN Reason: Hyglycemia Protocol Ergocalciferol (Drisdol 50,000 Intl Units Cap) 1 cap PO Q7D [facility] Last Admin: 05/24/16 00:45 Dose: Not Given Glucagon (Glucagen Diagnostic Kit) 0 mg IM STAT PRN; Protocol PRN Reason: Hypoglycemia Protocol Heparin Sodium (Porcine) (Heparin) 5,000 units SC Q12 [facility] PRN Reason: Protocol Last Admin: 05/27/16 08:41 Dose: 5,000 units Linezolid (Zyvox 600mg/300ml D5w) 300 mls @ 300 mls/hr IVPB Q12 [facility] Last Admin: 05/27/16 21:51 Dose: 300 mls/hr Moxifloxacin HCl (Avelox Iv 400mg/250ml Ns) 250 mls @ 250 mls/hr IVPB DAILY [facility] Last Admin: 05/27/16 08:37 Dose: 250 mls/hr Insulin Human Lispro (Humalog) 0 units SC ACHS [facility] PRN Reason: Protocol Last Admin: 05/28/16 07:43 Dose: Not Given Levothyroxine Sodium (Synthroid) 25 mcg PO DAILY@0630 [facility] Last Admin: 05/28/16 05:49 Dose: 25 mcg Nystatin (Nystop Topical Powder) 1 applic TOP TID [facility] Last Admin: 05/27/16 17:28 Dose: 1 applic Ondansetron HCl (Zofran Inj) 4 mg IVP Q6 PRN PRN Reason: Nausea/Vomiting Last Admin: 05/27/16 17:28 Dose: 4 mg Vitamin B Complex/Vit C/Folic Acid (Nephro-Berkley) 1 tab PO DAILY [facility] Last Admin: 05/27/16 09:28 Dose: 1 tab - Labs Labs: 05/28/16 06:30 05/28/16 06:30 PT 11.7 SECONDS (9.6-11.2) H 05/11/16 18:21 INR 1.13 (0.92-1.08) H 05/11/16 18:21 APTT 28.0 SECONDS (23.3-32.5) 05/11/16 18:21 - Constitutional Appears: No Acute Distress - Head Exam Head Exam: ATRAUMATIC, NORMAL INSPECTION, NORMOCEPHALIC - Eye Exam Eye Exam: Normal appearance - Respiratory Exam Respiratory Exam: Clear to Ausculation Bilateral, NORMAL BREATHING PATTERN - Cardiovascular Exam Cardiovascular Exam: REGULAR RHYTHM, +S1, +S2 - GI/Abdominal Exam GI & Abdominal Exam: Soft, Normal Bowel Sounds. 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 - Tunneled catheter placement scheduled for today for outpatient dialysis 2) AMS, lethargy, multifactorial medication side effects, delirium (Stable) Improving vitals remain stable MRI, CT of head, no acute findings monitor inpatient 3) Fever (Resolved) - TMAX 99.9. afebrile overnight WBC: 12.6 Afebrile overnight Blood cultures no growth Urine culture no growth Consult Dr. Enma morrow Linezolid 600mg Q12 ID added Moxifloxacin 250ml Daily for 48 hours F/U Serial WBC 4) Nausea most likely medication induced -Zofran Q6 PRN 5) Hypothyroidism - Levothyroxine continued 6) DVT prophylaxis - Heparin (Held until after procedure) <Ta Lipscomb - Last Filed: 05/29/16 06:40> Objective - Vital Signs/Intake and Output Vital Signs (last 24 hours): Temp Pulse Resp BP Pulse Ox 99.1 F 102 H 18 148/64 97 05/28/16 22:24 05/28/16 22:24 05/28/16 22:24 05/28/16 22:24 05/28/16 22:24 - Medications Medications: Current Medications Ascorbic Acid (Vitamin C 500 Mg Tab) 500 mg PO DAILY [facility] Last Admin: 05/28/16 09:59 Dose: Not Given Dextrose (Glutose 15) 0 gm PO ONCE PRN; Protocol PRN Reason: Hypoglycemia Protocol Dextrose (Dextrose 50% Inj) 0 ml IV STAT PRN; Protocol PRN Reason: Hyglycemia Protocol Ergocalciferol (Drisdol 50,000 Intl Units Cap) 1 cap PO Q7D [facility] Last Admin: 05/24/16 00:45 Dose: Not Given Glucagon (Glucagen Diagnostic Kit) 0 mg IM STAT PRN; Protocol PRN Reason: Hypoglycemia Protocol Heparin Sodium (Porcine) (Heparin) 5,000 units SC Q12 [facility] PRN Reason: Protocol Last Admin: 05/28/16 21:29 Dose: 5,000 units Hydromorphone HCl (Dilaudid) 0.5 mg IVP Q15M PRN PRN Reason: Pain, moderate (4-7) Stop: 05/29/16 14:27 Linezolid (Zyvox 600mg/300ml D5w) 300 mls @ 300 mls/hr IVPB Q12 [facility] Last Admin: 05/28/16 21:32 Dose: 300 mls/hr Moxifloxacin HCl (Avelox Iv 400mg/250ml Ns) 250 mls @ 250 mls/hr IVPB DAILY [facility] Last Admin: 05/28/16 16:29 Dose: 250 mls/hr Insulin Human Lispro (Humalog) 0 units SC ACHS [facility] PRN Reason: Protocol Last Admin: 05/29/16 06:38 Dose: Not Given Levothyroxine Sodium (Synthroid) 25 mcg PO DAILY@0630 [facility] Last Admin: 05/28/16 05:49 Dose: 25 mcg Nystatin (Nystop Topical Powder) 1 applic TOP TID [facility] Last Admin: 05/28/16 16:31 Dose: 1 applic Ondansetron HCl (Zofran Inj) 4 mg IVP Q6 PRN PRN Reason: Nausea/Vomiting Last Admin: 05/27/16 17:28 Dose: 4 mg Vitamin B Complex/Vit C/Folic Acid (Nephro-Berkley) 1 tab PO DAILY [facility] Last Admin: 05/28/16 09:59 Dose: Not Given - Labs Labs: 05/28/16 06:30 05/28/16 06:30 PT 12.4 SECONDS (9.6-11.2) H 05/28/16 09:00 INR 1.19 (0.92-1.08) H 05/28/16 09:00 APTT 29.2 SECONDS (23.3-32.5) 05/28/16 09:00 Attending/Attestation - Attestation I have personally seen and examined this patient.: Yes I have fully participated in the care of the patient.: Yes I have reviewed all pertinent clinical information, including history, physical exam and plan: Yes
[2016-05-28 09:58] LABS: PARTIAL THROMBOPLASTIN TIME 29.2 SECONDS (23.3-32.5)
[2016-05-28] MEDS: Multivitamin Vitamin B Complex (Nephro-Vite) Tab PO SCH (09:59)
[2016-05-28] MEDS: Linezolid 600 mg in D5W 300 ml 300 ML IVPB SCH ×2 (10:23→21:32)
[2016-05-28] MEDS ORDERED: Lidocaine 1% Inj (20ml) ONE (12:55)
[2016-05-28] MEDS ORDERED: Midazolam 2 MG/2 ML VIAL ONE (13:23)
[2016-05-28] MEDS ORDERED: Propofol 10 mg/ml Inj (20 ML) ONE (13:24)
[2016-05-28] MEDS ORDERED: HYDROmorphone 0.5 mg/0.5 ml ISec IVP PRN (14:26)
[2016-05-28] MEDS ORDERED: Sodium Chloride 0.9% 1,000 ML IV SCH (14:30)
--- NOTE | 2016-05-28 14:44 | PCM.SURG1 ---
Surgeon's Initial Post Op Note - Surgeon's Notes Surgeon: Maximo Education Department Chair: None Type of Anesthesia: IV Sedation, Local Pre-Operative Diagnosis: Renal Failure Operative Findings: Right non tunneled HD catheter. Post-Operative Diagnosis: Renal failure Operation Performed: Placement of right tunneled HD catheter. Removal of right non tunneled HD catheter. Specimen/Specimens Removed: Right non tunneled HD catheter. Estimated Blood Loss: EBL {In ML}: 1 Date of Surgery/Procedure: 05/28/16 Time of Surgery/Procedure: 14:00
[2016-05-28] MEDS: Moxifloxacin IV 400mg/250ml NS 250 ML IVPB SCH (16:29)
--- NOTE | 2016-05-28 20:05 | CP.PCM.PN ---
Subjective - Date & Time of Evaluation Date of Evaluation: 05/28/16 Time of Evaluation: 15:00 - Subjective Subjective: SEEN ON RENAL F/U CREATININ WENT UP FROM 3.2 TO 3.5 S/P R TUNNELLED HD CATH ON HD TTS Objective - Vital Signs/Intake and Output Vital Signs (last 24 hours): Temp Pulse Resp BP Pulse Ox 98 F 99 H 20 110/60 97 05/28/16 17:30 05/28/16 17:30 05/28/16 17:30 05/28/16 17:30 05/28/16 17:30 - Medications Medications: Current Medications Ascorbic Acid (Vitamin C 500 Mg Tab) 500 mg PO DAILY [facility] Last Admin: 05/28/16 09:59 Dose: Not Given Dextrose (Glutose 15) 0 gm PO ONCE PRN; Protocol PRN Reason: Hypoglycemia Protocol Dextrose (Dextrose 50% Inj) 0 ml IV STAT PRN; Protocol PRN Reason: Hyglycemia Protocol Ergocalciferol (Drisdol 50,000 Intl Units Cap) 1 cap PO Q7D [facility] Last Admin: 05/24/16 00:45 Dose: Not Given Glucagon (Glucagen Diagnostic Kit) 0 mg IM STAT PRN; Protocol PRN Reason: Hypoglycemia Protocol Heparin Sodium (Porcine) (Heparin) 5,000 units SC Q12 [facility] PRN Reason: Protocol Last Admin: 05/27/16 08:41 Dose: 5,000 units Hydromorphone HCl (Dilaudid) 0.5 mg IVP Q15M PRN PRN Reason: Pain, moderate (4-7) Stop: 05/29/16 14:27 Linezolid (Zyvox 600mg/300ml D5w) 300 mls @ 300 mls/hr IVPB Q12 [facility] Last Admin: 05/28/16 10:23 Dose: 300 mls/hr Moxifloxacin HCl (Avelox Iv 400mg/250ml Ns) 250 mls @ 250 mls/hr IVPB DAILY [facility] Last Admin: 05/28/16 16:29 Dose: 250 mls/hr Insulin Human Lispro (Humalog) 0 units SC ACHS [facility] PRN Reason: Protocol Last Admin: 05/28/16 16:28 Dose: Not Given Levothyroxine Sodium (Synthroid) 25 mcg PO DAILY@0630 [facility] Last Admin: 05/28/16 05:49 Dose: 25 mcg Nystatin (Nystop Topical Powder) 1 applic TOP TID [facility] Last Admin: 05/28/16 16:31 Dose: 1 applic Ondansetron HCl (Zofran Inj) 4 mg IVP Q6 PRN PRN Reason: Nausea/Vomiting Last Admin: 05/27/16 17:28 Dose: 4 mg Vitamin B Complex/Vit C/Folic Acid (Nephro-Berkley) 1 tab PO DAILY [facility] Last Admin: 05/28/16 09:59 Dose: Not Given - Labs Labs: 05/28/16 06:30 05/28/16 06:30 PT 12.4 SECONDS (9.6-11.2) H 05/28/16 09:00 INR 1.19 (0.92-1.08) H 05/28/16 09:00 APTT 29.2 SECONDS (23.3-32.5) 05/28/16 09:00 Assessment and Plan - Assessment and Plan (Free Text) Assessment: ACK ON HD TTS C/O CURRENT CARE HD IN AM THEN D/C TO [facility] D/W MEDICAL TEAM
[2016-05-29] MEDS: Insulin Lispro (humaLOG) 100 Units/ml Inj SC SCH ×2 (06:38→11:13)
[2016-05-29 09:00] VITALS: BP 146/65; PULSE 97; RESP 20; TEMP 98.4; O2SAT 95
[2016-05-29] MEDS: Moxifloxacin IV 400mg/250ml NS 250 ML IVPB SCH (09:18)
[2016-05-29] MEDS: Levothyroxine 25 MCG TAB PO SCH (09:19)
[2016-05-29] MEDS: Multivitamin Vitamin B Complex (Nephro-Vite) Tab PO SCH (09:19)
[2016-05-29] MEDS: Linezolid 600 mg in D5W 300 ml 300 ML IVPB SCH (09:19)
--- NOTE | 2016-05-29 10:53 | PQF RENAL ---
This form is a permanent part of the medical record 05/25/16 Dr. Patterson, Please clarify the stage of the chronic kidney disease: Documentation of SHRAVAN and CKD. Patient on hemodialysis. GFR ranging 6-14. Clarification of your documentation is requested to better reflect the severity of illness and intensity of treatment of your patient. Indicators present [] Oliguria/anuria [] Edema/weight gain [] Hyponatremia [] Confusion/mental status changes [] Increased Blood Urea Nitrogen/Creatinine [] Increased Potassium/Decreased potassium [] Anemia (male <13.5, female <12.0) [] Proteinuria [] Metabolic Acidosis OR Alkalosis [] Hypotension/shock [] Decreased GFR [] Other: [] Location in the medical record that reflects the above clinical findings: PHYSICIAN'S RESPONSE Based on your medical judgment of the clinical indicators outlined above, are you treating this patient for a known or suspected: CHRONIC KIDNEY DISEASE: [ ] Stage 1 [ ] Stage 2 (mild) [ ] Stage 3 (moderate [ ] Stage 4 (severe) [ ] Stage 5 [ ] ESRD [ ] Other (please specify) [ ] Unable to determine [ ] Unknown Present On Admission (POA) Indicator: [] Present at the time of admission [] Not present at the time of admission [] Clinically Undetermined In responding to this query, please exercise your independent professional judgment. The fact that a question is asked does not imply that any particular answer is desired or expected. Thank you for your clarification on this documentation. If you have any questions please call:[phone] * Thank you, Diane Rodríguez RN CDMP Chronic Kidney Disease Stages *[employer]* Stage I GFR >90 Stage II GFR 60-89 Stage III GFR 30-59 Stage IV GFR 15-29 Stage V~~~~~~~~~~ GFR <15~~~~~~~~~~~~~ MTDD
--- NOTE | 2016-05-29 10:56 | CP.PCM.DIS ---
<Giacomo Guerrero - Last Filed: 05/29/16 12:28> Provider - Provider Date of Admission: 05/11/16 18:07 Attending physician: Eddie Holm MD Time Spent in preparation of Discharge (in minutes): 30 Diagnosis - Discharge Diagnosis (1) SHRAVAN (acute kidney injury) Status: Acute Priority: Medium Hospital Course - Lab Results Lab Results: Micro Results 05/24/16 18:30 Blood Blood Culture - Preliminary NO GROWTH AFTER 4 DAYS 05/24/16 18:00 Blood Blood Culture - Preliminary NO GROWTH AFTER 4 DAYS 05/24/16 10:47 Urine,Catheterized Urine Culture - Final No Growth (<1,000 CFU/ML) 05/18/16 20:16 Blood Blood Culture - Final NO GROWTH AFTER 5 DAYS 05/18/16 20:16 Blood Gram Stain - Final TEST NOT PERFORMED 05/22/16 Unknown Urine,Catheterized Urine Culture - Final No Growth (<1,000 CFU/ML) 05/18/16 12:00 Stool Stool Culture - Final NO SALMONELLA, SHIGELLA OR CAMPYLOBACTER ISOLATED. 05/18/16 22:00 Urine,Catheterized Urine Culture - Final No Growth (<1,000 CFU/ML) 05/16/16 01:58 Urine,Catheterized Urine Culture - Final Yeast Species 05/11/16 23:44 Blood Blood Culture - Final NO GROWTH AFTER 5 DAYS 05/11/16 23:44 Blood Gram Stain - Final TEST NOT PERFORMED 05/11/16 18:56 Urine,Justin Urine Culture - Final Yeast Species Most Recent Lab Values WBC 12.3 K/uL (4.8-10.8) H 05/28/16 06:30 RBC 3.65 Mil/uL (3.80-5.20) L 05/28/16 06:30 Hgb 8.6 g/dL (12.0-16.0) L 05/28/16 06:30 Hct 28.1 % (34.0-47.0) L 05/28/16 06:30 MCV 76.9 fl (81.0-99.0) L 05/28/16 06:30 MCH 23.7 pg (27.0-31.0) L 05/28/16 06:30 MCHC 30.8 g/dL (33.0-37.0) L 05/28/16 06:30 RDW 19.4 % (11.5-14.5) H 05/28/16 06:30 Plt Count 355 K/uL (130-400) 05/28/16 06:30 MPV 8.5 fl (7.2-11.7) 05/27/16 05:30 Neut % (Auto) 64.5 % (50.0-75.0) 05/27/16 05:30 Lymph % (Auto) 17.8 % (20.0-40.0) L 05/27/16 05:30 [place] % (Auto) 6.6 % (0.0-10.0) 05/27/16 05:30 Eos % (Auto) 10.2 % (0.0-4.0) H 05/27/16 05:30 Baso % (Auto) 0.9 % (0.0-2.0) 05/27/16 05:30 Neut # 9.2 K/uL (1.8-7.0) H 05/27/16 05:30 Lymph # 2.5 K/uL (1.0-4.3) 05/27/16 05:30 [place] # 0.9 K/uL (0.0-0.8) H 05/27/16 05:30 Eos # 1.4 K/uL (0.0-0.7) H 05/27/16 05:30 Baso # 0.1 K/uL (0.0-0.2) 05/27/16 05:30 PT 12.4 SECONDS (9.6-11.2) H 05/28/16 09:00 INR 1.19 (0.92-1.08) H 05/28/16 09:00 APTT 29.2 SECONDS (23.3-32.5) 05/28/16 09:00 pCO2 58 mm/Hg (35-45) H 05/11/16 18:45 pO2 83 mm/Hg (80-100) 05/11/16 18:45 HCO3 28.5 mmol/L (21-28) H 05/11/16 18:45 ABG pH 7.35 (7.35-7.45) 05/11/16 18:45 ABG Total CO2 33.8 mmol/L (22-28) H 05/11/16 18:45 ABG O2 Saturation 99.9 % (95-98) H 05/11/16 18:45 ABG Base Excess 4.7 mmol/L (-2.0-3.0) H 05/11/16 18:45 Pedro Test Yes 05/11/16 18:45 ABG Potassium 3.9 mmol/L (3.6-5.2) 05/11/16 18:45 A-a O2 Difference 44.0 mm/Hg 05/11/16 18:45 Sodium 136.0 mmol/L (132-148) 05/11/16 18:45 Chloride 105.0 mmol/L (98-107) 05/11/16 18:45 Glucose 98 mg/dL (65-105) 05/11/16 18:45 Lactate 0.8 mmol/L (0.7-2.1) 05/11/16 18:45 FiO2 28.0 % 05/11/16 18:45 Crit Value Called To Dr moy 05/11/16 18:45 Crit Value Called By Cyril 05/11/16 18:45 Blood Gas Notified Time 1900 05/11/16 18:45 Sodium 131 mmol/l (132-148) L 05/28/16 06:30 Potassium 4.0 MMOL/L (3.6-5.0) 05/28/16 06:30 Chloride 96 mmol/L (98-107) L 05/28/16 06:30 Carbon Dioxide 24 mmol/L (22-30) 05/28/16 06:30 Anion Gap 15 (10-20) 05/28/16 06:30 BUN 12 mg/dl (7-17) 05/28/16 06:30 Creatinine 3.5 mg/dL (0.7-1.2) H 05/28/16 06:30 Est GFR ( Amer) 15 05/28/16 06:30 Est GFR (Non-Af Amer) 13 05/28/16 06:30 POC Glucose (mg/dL) 105 mg/dL (65-110) 05/29/16 06:38 Random Glucose 105 mg/dL (65-105) 05/28/16 06:30 Serum Osmolality 300 mosm/kg (272-300) 05/13/16 09:00 Lactic Acid 0.8 MMOL/L (0.7-2.1) 05/12/16 06:00 Uric Acid 7.6 mg/Dl (2.2-7.5) H 05/13/16 09:00 Calcium 7.6 mg/dL (8.4-10.2) L 05/28/16 06:30 Phosphorus 3.1 mg/dl (2.5-4.5) 05/27/16 05:30 Magnesium 1.5 MG/DL (1.6-2.3) L 05/27/16 05:30 Total Bilirubin 0.5 mg/dl (0.2-1.3) 05/27/16 05:30 Direct Bilirubin 0.3 mg/ml (0.0-0.4) 05/18/16 06:15 AST 34 U/L (14-36) 05/27/16 05:30 ALT 35 U/L (9-52) 05/27/16 05:30 Alkaline Phosphatase 159 U/L (38-126) H 05/27/16 05:30 Ammonia < 9 umo/L (11-51) L 05/11/16 18:56 Total Creatine Kinase < 20 U/L (30-135) L 05/11/16 18:56 Troponin I 0.0560 ng/mL (0.00-0.120) 05/11/16 18:56 NT-Pro-B Natriuret Pep 6130 pg/ml (0-900) H 05/11/16 18:56 Total Protein 5.1 G/DL (6.3-8.2) L 05/27/16 05:30 Albumin 2.2 g/dL (3.5-5.0) L 05/27/16 05:30 Globulin 2.9 gm/dL (2.2-3.9) 05/27/16 05:30 Albumin/Globulin Ratio 0.8 (1.0-2.1) L 05/27/16 05:30 Procalcitonin 0.49 NG/ML (0.19-0.49) 05/12/16 06:00 Arterial Blood Potassium 3.9 mmol/L (3.6-5.2) 05/11/16 18:45 Urine Color Yellow (YELLOW) 05/22/16 Unknown Urine Clarity Cloudy (Clear) 05/22/16 Unknown Urine pH 5.0 (5.0-8.0) 05/22/16 Unknown Ur Specific [place] 1.009 (1.003-1.030) 05/22/16 Unknown Urine Protein 30 mg/dL (NEGATIVE) 05/22/16 Unknown Urine Glucose (UA) Neg mg/dL (Normal) 05/22/16 Unknown Urine Ketones Negative mg/dL (NEGATIVE) 05/22/16 Unknown Urine Blood Small (NEGATIVE) 05/22/16 Unknown Urine Nitrate Negative (NEGATIVE) 05/22/16 Unknown Urine Bilirubin Negative (NEGATIVE) 05/22/16 Unknown Urine Urobilinogen 0.2-1.0 mg/dL (0.2-1.0) 05/22/16 Unknown Ur Leukocyte Esterase Mod [place]/uL (Negative) 05/22/16 Unknown Urine RBC (Auto) 5 /hpf (0-3) H 05/22/16 Unknown Urine WBC Clumps (Auto) Few /hpf (NONE) H 05/22/16 Unknown Urine Microscopic WBC 5 /hpf (0-5) 05/22/16 Unknown Ur Squamous Epith Cells < 1 /hpf (0-5) 05/22/16 Unknown Amorphous Sediment Moderate /ul (<OCC) H 05/22/16 Unknown Urine Bacteria Rare (<OCC) 05/22/16 Unknown Urine Eosinophils Negative (NEGATIVE) 05/12/16 19:31 Urine Osmolality 188 mosm/kg (300-1000) L 05/20/16 17:00 Ur Random Creatinine 166.6 mg/dL 05/12/16 05:37 Ur Random Sodium 27 meq/L 05/20/16 17:00 Ur Random Potassium 21.1 mmol/L 05/20/16 17:00 Stool Leukocytes, Qual Negative (NEGATIVE) 05/18/16 12:00 Complement C3 110.0 mg/dL (88.0-165.0) 05/13/16 09:00 Complement C4 31.1 mg/dL (14.0-44.0) 05/13/16 09:00 Tot Complement (CH50) >60 U/mL (31-60) H 05/13/16 09:00 C. difficile Ag & Toxin Negative (NEGATIVE) 05/18/16 12:00 Hepatitis A IgM Ab Negative (NEGATIVE) 05/15/16 12:47 Hep Bs Antigen Negative (NEGATIVE) 05/15/16 12:47 Hep B Core IgM Ab Negative (NEGATIVE) 05/15/16 12:47 Hepatitis C Antibody Negative (NEGATIVE) 05/15/16 12:47 - Hospital Course Hospital Course: 80 YO F w/ DM II, anxiety, arthritis, CAD, COPD depression , hypertension, hypercholesterolemia, hypothyroidism, baseline dementia was admitted for diarrhea and cellulites. - During her hospital stay she was treated with IV antibiotics for her cellulites. The cellulitis resolved and the diarrhea subsided. During the stay the patient developed acute on chronic kidney failure and has been on hemodialysis, most recent creatinine was 3.5. Patient will require outpatient dialysis. PAtient had been having a low grade fever and had a white count. PT has been on IV antibiotics and currently afebrile with WBC trending down.WBC curently at 12.3. Pt has been advised to continue IV Avelox for 5 more days. - Pt has baseline dementia with sun down phenomenon, during the hospital stay pt developed worsening of her dementia and had some AMS, which was corrected after the HD was started. Currently patient is doing well, her mentation has improved. - Pt has a tunneled catheter placed for outpatient dialysis. Ambulatory medication K- DUR 20 mEq [place] Heparin 5,000 units SC Mag Ox Moxifloxacin 400mg IV x 5 days Vit B complex/ Vit C/ Folic Acid Nystatin topical powder Levothyroxine: 25 mcg PO daily Ascorbic acid 500 mg PO daily Zofran 4mg IVP Q6 PRN Discharge Exam - Head Exam Head Exam: ATRAUMATIC, NORMAL INSPECTION, NORMOCEPHALIC - Eye Exam Eye Exam: Normal appearance - Respiratory Exam Respiratory Exam: NORMAL BREATHING PATTERN. absent: Rales, Rhonchi, Wheezes - Cardiovascular Exam Cardiovascular Exam: REGULAR RHYTHM, +S1, +S2 - GI/Abdominal Exam GI & Abdominal Exam: Normal Bowel Sounds. absent: Tenderness - Extremities Exam Extremities exam: normal inspection - Neurological Exam Neurological exam: Alert, CN II-XII Intact, Oriented x3 Discharge Plan - Discharge Medications Prescriptions: Moxifloxacin/Sod.gomez,Sul/Water [Moxifloxacin 400 mg/250 ml Bag] 400 mg IV DAILY 5 Days - Follow Up Plan Condition: GUARDED Disposition: REHAB FACILITY/REHAB UNIT Instructions: Rotavirus Infection (DC), Rotavirus Infection (GEN), Urinary Tract Infection in Women (DC), Hemodialysis (DC), Cellulitis (DC), Cellulitis ( GEN), Dialysis Diet (DC), Preventing Infections (GEN), Dysuria (GEN), Altered Mental Status (GEN), Nutrition Tips for Relief of Diarrhea (DC), Nutrition Tips for Relief of Diarrhea (GEN) Additional Instructions: PT is stable for discharge to [facility]. Continue with hemodialysis. Complete antibiotic course. Ambulatory medication K- DUR 20 mEq [place] Heparin 5,000 units SC Mag Ox Moxifloxacin 400mg IV x 5 days Vit B complex/ Vit C/ Folic Acid Nystatin topical powder Levothyroxine: 25 mcg PO daily Ascorbic acid 500 mg PO daily Zofran 4mg IVP Q6 PRN <Eddie Holm - Last Filed: 06/01/16 07:02> Provider - Provider Date of Admission: 05/11/16 18:07 Attending physician: Eddie Holm MD Hospital Course - Lab Results Lab Results: Micro Results 05/24/16 18:30 Blood Blood Culture - Final NO GROWTH AFTER 5 DAYS 05/24/16 18:30 Blood Gram Stain - Final TEST NOT PERFORMED 05/24/16 18:00 Blood Blood Culture - Final NO GROWTH AFTER 5 DAYS 05/24/16 18:00 Blood Gram Stain - Final TEST NOT PERFORMED 05/24/16 10:47 Urine,Catheterized Urine Culture - Final No Growth (<1,000 CFU/ML) 05/18/16 20:16 Blood Blood Culture - Final NO GROWTH AFTER 5 DAYS 05/18/16 20:16 Blood Gram Stain - Final TEST NOT PERFORMED 05/22/16 Unknown Urine,Catheterized Urine Culture - Final No Growth (<1,000 CFU/ML) 05/18/16 12:00 Stool Stool Culture - Final NO SALMONELLA, SHIGELLA OR CAMPYLOBACTER ISOLATED. 05/18/16 22:00 Urine,Catheterized Urine Culture - Final No Growth (<1,000 CFU/ML) 05/16/16 01:58 Urine,Catheterized Urine Culture - Final Yeast Species 05/11/16 23:44 Blood Blood Culture - Final NO GROWTH AFTER 5 DAYS 05/11/16 23:44 Blood Gram Stain - Final TEST NOT PERFORMED 05/11/16 18:56 Urine,Justin Urine Culture - Final Yeast Species Most Recent Lab Values WBC 12.3 K/uL (4.8-10.8) H 05/28/16 06:30 RBC 3.65 Mil/uL (3.80-5.20) L 05/28/16 06:30 Hgb 8.6 g/dL (12.0-16.0) L 05/28/16 06:30 Hct 28.1 % (34.0-47.0) L 05/28/16 06:30 MCV 76.9 fl (81.0-99.0) L 05/28/16 06:30 MCH 23.7 pg (27.0-31.0) L 05/28/16 06:30 MCHC 30.8 g/dL (33.0-37.0) L 05/28/16 06:30 RDW 19.4 % (11.5-14.5) H 05/28/16 06:30 Plt Count 355 K/uL (130-400) 05/28/16 06:30 MPV 8.5 fl (7.2-11.7) 05/27/16 05:30 Neut % (Auto) 64.5 % (50.0-75.0) 05/27/16 05:30 Lymph % (Auto) 17.8 % (20.0-40.0) L 05/27/16 05:30 [place] % (Auto) 6.6 % (0.0-10.0) 05/27/16 05:30 Eos % (Auto) 10.2 % (0.0-4.0) H 05/27/16 05:30 Baso % (Auto) 0.9 % (0.0-2.0) 05/27/16 05:30 Neut # 9.2 K/uL (1.8-7.0) H 05/27/16 05:30 Lymph # 2.5 K/uL (1.0-4.3) 05/27/16 05:30 [place] # 0.9 K/uL (0.0-0.8) H 05/27/16 05:30 Eos # 1.4 K/uL (0.0-0.7) H 05/27/16 05:30 Baso # 0.1 K/uL (0.0-0.2) 05/27/16 05:30 PT 12.4 SECONDS (9.6-11.2) H 05/28/16 09:00 INR 1.19 (0.92-1.08) H 05/28/16 09:00 APTT 29.2 SECONDS (23.3-32.5) 05/28/16 09:00 pCO2 58 mm/Hg (35-45) H 05/11/16 18:45 pO2 83 mm/Hg (80-100) 05/11/16 18:45 HCO3 28.5 mmol/L (21-28) H 05/11/16 18:45 ABG pH 7.35 (7.35-7.45) 05/11/16 18:45 ABG Total CO2 33.8 mmol/L (22-28) H 05/11/16 18:45 ABG O2 Saturation 99.9 % (95-98) H 05/11/16 18:45 ABG Base Excess 4.7 mmol/L (-2.0-3.0) H 05/11/16 18:45 Pedro Test Yes 05/11/16 18:45 ABG Potassium 3.9 mmol/L (3.6-5.2) 05/11/16 18:45 A-a O2 Difference 44.0 mm/Hg 05/11/16 18:45 Sodium 136.0 mmol/L (132-148) 05/11/16 18:45 Chloride 105.0 mmol/L (98-107) 05/11/16 18:45 Glucose 98 mg/dL (65-105) 05/11/16 18:45 Lactate 0.8 mmol/L (0.7-2.1) 05/11/16 18:45 FiO2 28.0 % 05/11/16 18:45 Crit Value Called To Dr moy 05/11/16 18:45 Crit Value Called By Cyril 05/11/16 18:45 Blood Gas Notified Time 1900 05/11/16 18:45 Sodium 131 mmol/l (132-148) L 05/28/16 06:30 Potassium 4.0 MMOL/L (3.6-5.0) 05/28/16 06:30 Chloride 96 mmol/L (98-107) L 05/28/16 06:30 Carbon Dioxide 24 mmol/L (22-30) 05/28/16 06:30 Anion Gap 15 (10-20) 05/28/16 06:30 BUN 12 mg/dl (7-17) 05/28/16 06:30 Creatinine 3.5 mg/dL (0.7-1.2) H 05/28/16 06:30 Est GFR ( Amer) 15 05/28/16 06:30 Est GFR (Non-Af Amer) 13 05/28/16 06:30 POC Glucose (mg/dL) 148 mg/dL (65-110) H 05/29/16 11:00 Random Glucose 105 mg/dL (65-105) 05/28/16 06:30 Serum Osmolality 300 mosm/kg (272-300) 05/13/16 09:00 Lactic Acid 0.8 MMOL/L (0.7-2.1) 05/12/16 06:00 Uric Acid 7.6 mg/Dl (2.2-7.5) H 05/13/16 09:00 Calcium 7.6 mg/dL (8.4-10.2) L 05/28/16 06:30 Phosphorus 3.1 mg/dl (2.5-4.5) 05/27/16 05:30 Magnesium 1.5 MG/DL (1.6-2.3) L 05/27/16 05:30 Total Bilirubin 0.5 mg/dl (0.2-1.3) 05/27/16 05:30 Direct Bilirubin 0.3 mg/ml (0.0-0.4) 05/18/16 06:15 AST 34 U/L (14-36) 05/27/16 05:30 ALT 35 U/L (9-52) 05/27/16 05:30 Alkaline Phosphatase 159 U/L (38-126) H 05/27/16 05:30 Ammonia < 9 umo/L (11-51) L 05/11/16 18:56 Total Creatine Kinase < 20 U/L (30-135) L 05/11/16 18:56 Troponin I 0.0560 ng/mL (0.00-0.120) 05/11/16 18:56 NT-Pro-B Natriuret Pep 6130 pg/ml (0-900) H 05/11/16 18:56 Total Protein 5.1 G/DL (6.3-8.2) L 05/27/16 05:30 Albumin 2.2 g/dL (3.5-5.0) L 05/27/16 05:30 Globulin 2.9 gm/dL (2.2-3.9) 05/27/16 05:30 Albumin/Globulin Ratio 0.8 (1.0-2.1) L 05/27/16 05:30 Procalcitonin 0.49 NG/ML (0.19-0.49) 05/12/16 06:00 Arterial Blood Potassium 3.9 mmol/L (3.6-5.2) 05/11/16 18:45 Urine Color Yellow (YELLOW) 05/22/16 Unknown Urine Clarity Cloudy (Clear) 05/22/16 Unknown Urine pH 5.0 (5.0-8.0) 05/22/16 Unknown Ur Specific [place] 1.009 (1.003-1.030) 05/22/16 Unknown Urine Protein 30 mg/dL (NEGATIVE) 05/22/16 Unknown Urine Glucose (UA) Neg mg/dL (Normal) 05/22/16 Unknown Urine Ketones Negative mg/dL (NEGATIVE) 05/22/16 Unknown Urine Blood Small (NEGATIVE) 05/22/16 Unknown Urine Nitrate Negative (NEGATIVE) 05/22/16 Unknown Urine Bilirubin Negative (NEGATIVE) 05/22/16 Unknown Urine Urobilinogen 0.2-1.0 mg/dL (0.2-1.0) 05/22/16 Unknown Ur Leukocyte Esterase Mod [place]/uL (Negative) 05/22/16 Unknown Urine RBC (Auto) 5 /hpf (0-3) H 05/22/16 Unknown Urine WBC Clumps (Auto) Few /hpf (NONE) H 05/22/16 Unknown Urine Microscopic WBC 5 /hpf (0-5) 05/22/16 Unknown Ur Squamous Epith Cells < 1 /hpf (0-5) 05/22/16 Unknown Amorphous Sediment Moderate /ul (<OCC) H 05/22/16 Unknown Urine Bacteria Rare (<OCC) 05/22/16 Unknown Urine Eosinophils Negative (NEGATIVE) 05/12/16 19:31 Urine Osmolality 188 mosm/kg (300-1000) L 05/20/16 17:00 Ur Random Creatinine 166.6 mg/dL 05/12/16 05:37 Ur Random Sodium 27 meq/L 05/20/16 17:00 Ur Random Potassium 21.1 mmol/L 05/20/16 17:00 Stool Leukocytes, Qual Negative (NEGATIVE) 05/18/16 12:00 Complement C3 110.0 mg/dL (88.0-165.0) 05/13/16 09:00 Complement C4 31.1 mg/dL (14.0-44.0) 05/13/16 09:00 Tot Complement (CH50) >60 U/mL (31-60) H 05/13/16 09:00 C. difficile Ag & Toxin Negative (NEGATIVE) 05/18/16 12:00 Hepatitis A IgM Ab Negative (NEGATIVE) 05/15/16 12:47 Hep Bs Antigen Negative (NEGATIVE) 05/15/16 12:47 Hep B Core IgM Ab Negative (NEGATIVE) 05/15/16 12:47 Hepatitis C Antibody Negative (NEGATIVE) 05/15/16 12:47 Attending/Attestation - Attestation I have personally seen and examined this patient.: Yes I have fully participated in the care of the patient.: Yes I have reviewed all pertinent clinical information, including history, physical exam and plan: Yes
--- NOTE | 2016-05-29 13:51 | VASCULAR ---
Removal of right-sided non tunneled HD catheter Insertion of right-sided tunneled HD catheter History: Renal failure. Anesthesia: Moderate sedation and local lidocaine. Procedure and findings: The procedure was explained to the patient's family member in detail including relative risks and benefits. Informed consent was obtained. The patient was positioned supine on the angiographic table in the right neck and chest region including the existing catheter was prepped and draped in usual sterile techniques. Initial fluoroscopic senior engineering technician image demonstrated the previously existing non tunneled dialysis catheter. Is 75 centimeter stiff Amplatz guidewire was introduced through this catheter into the IVC. A permanent image was stored. The catheter was then removed. Local anesthesia was applied. After administration of local anesthesia, a 1 centimeter incision was made approximately 6-9 centimeters from the venotomy site. A 23 centimeter 14.5 [place] dual lumen dialysis catheter was then tunneled from the incision to the venotomy site and inserted into the internal jugular vein using a peel-away sheath. The venotomy site was closed and covered with a sterile dressing. The catheter was sutured in place and locked with heparin. The site was covered with a sterile dressing. Postprocedure image demonstrated confirmed position of the catheter tip at the right atrial/SVC junction. Impression: Removal of previously existing non tunneled HD catheter. Successful fluoroscopically guided placement of a dual-lumen 23 centimeter 14.5 [place] tunneled hemodialysis catheter via a patent right internal jugular vein. Catheter is ready for use.
--- NOTE | 2016-05-29 16:53 | CP.PCM.PN ---
Subjective - Date & Time of Evaluation Date of Evaluation: 05/29/16 Time of Evaluation: 13:00 - Subjective Subjective: SEEN ON RENAL F/U ALERT AND RESPONSIVE .. 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 CAN BE D/C TO [facility] AFTER HER HD TODAY Objective - Vital Signs/Intake and Output Vital Signs (last 24 hours): Temp Pulse Resp BP Pulse Ox 98.4 F 97 H 20 146/65 95 05/29/16 08:59 05/29/16 08:59 05/29/16 08:59 05/29/16 08:59 05/29/16 08:59 - Medications Medications: Current Medications Ascorbic Acid (Vitamin C 500 Mg Tab) 500 mg PO DAILY [facility] Last Admin: 05/29/16 09:19 Dose: 500 mg Dextrose (Glutose 15) 0 gm PO ONCE PRN; Protocol PRN Reason: Hypoglycemia Protocol Dextrose (Dextrose 50% Inj) 0 ml IV STAT PRN; Protocol PRN Reason: Hyglycemia Protocol Ergocalciferol (Drisdol 50,000 Intl Units Cap) 1 cap PO Q7D [facility] Last Admin: 05/24/16 00:45 Dose: Not Given Glucagon (Glucagen Diagnostic Kit) 0 mg IM STAT PRN; Protocol PRN Reason: Hypoglycemia Protocol Heparin Sodium (Porcine) (Heparin) 5,000 units SC Q12 [facility] PRN Reason: Protocol Last Admin: 05/29/16 09:19 Dose: 5,000 units Linezolid (Zyvox 600mg/300ml D5w) 300 mls @ 300 mls/hr IVPB Q12 [facility] Last Admin: 05/29/16 09:19 Dose: 300 mls/hr Moxifloxacin HCl (Avelox Iv 400mg/250ml Ns) 250 mls @ 250 mls/hr IVPB DAILY [facility] Stop: 06/02/16 09:00 Last Admin: 05/29/16 09:18 Dose: 250 mls/hr Insulin Human Lispro (Humalog) 0 units SC ACHS [facility] PRN Reason: Protocol Last Admin: 05/29/16 11:13 Dose: Not Given Levothyroxine Sodium (Synthroid) 25 mcg PO DAILY@0630 [facility] Last Admin: 05/29/16 09:19 Dose: 25 mcg Nystatin (Nystop Topical Powder) 1 applic TOP TID [facility] Last Admin: 03/28/17 12:03 Dose: 1 applic Ondansetron HCl (Zofran Inj) 4 mg IVP Q6 PRN PRN Reason: Nausea/Vomiting Last Admin: 05/27/16 17:28 Dose: 4 mg Vitamin B Complex/Vit C/Folic Acid (Nephro-[place]) 1 tab PO DAILY [facility] Last Admin: 05/29/16 09:19 Dose: 1 tab - Labs Labs: 05/28/16 06:30 05/28/16 06:30 PT 12.4 SECONDS (9.6-11.2) H 05/28/16 09:00 INR 1.19 (0.92-1.08) H 05/28/16 09:00 APTT 29.2 SECONDS (23.3-32.5) 05/28/16 09:00 Assessment and Plan - Assessment and Plan (Free Text) Assessment: SHRAVAN ... ON HD T T S .. TO BE C/O ANEMIA MULTIFACTORIAL MULTIPLE CO MORBIDITIES P : HD TODAY THEN D/C TO [facility]
== END 2016-05-29 17:17 | DRG 682 ==
LOC: H.ER 17:29 → H.ERHOLD 18:07 → H.TEL 21:06 → H.MEDSURG1 05-16 18:17
PROVIDERS: ADMIT Family Medicine; ATTEND Family Medicine
PROC: 05HM33Z Insertion of Infusion Device into Right Internal Jugular Vein, Percutaneous Approach (ICD-10-PCS; principal; 2016-05-14)
PROC: 5A1D60Z (ICD-10-PCS; 2016-05-14)
PROC: 05PYX3Z Removal of Infusion Device from Upper Vein, External Approach (ICD-10-PCS; 2016-05-28)
PROC: 05HM33Z Insertion of Infusion Device into Right Internal Jugular Vein, Percutaneous Approach (ICD-10-PCS; 2016-05-28)
DX: N17.0 Acute kidney failure with tubular necrosis (principal); G93.41 Metabolic encephalopathy; L03.115 Cellulitis of right lower limb; E11.22 Type 2 diabetes mellitus with diabetic chronic kidney disease; E87.1 Hypo-osmolality and hyponatremia; F03.90 Unspecified dementia, unspecified severity, without behavioral disturbance, psychotic disturbance, mood disturbance, and anxiety; I13.10 Hypertensive heart and chronic kidney disease without heart failure, with stage 1 through stage 4 chronic kidney disease, or unspecified chronic kidney disease; F05 Delirium due to known physiological condition; L03.116 Cellulitis of left lower limb; N39.0 Urinary tract infection, site not specified; B37.49 Other urogenital candidiasis; D63.1 Anemia in chronic kidney disease; E03.9 Hypothyroidism, unspecified; E78.00 Pure hypercholesterolemia, unspecified; F32.9 Major depressive disorder, single episode, unspecified; F41.9 Anxiety disorder, unspecified; J44.9 Chronic obstructive pulmonary disease, unspecified; M19.90 Unspecified osteoarthritis, unspecified site; N18.9 Chronic kidney disease, unspecified; R56.9 Unspecified convulsions; E66.9 Obesity, unspecified; Z68.35 Body mass index [BMI] 35.0-35.9, adult; R19.7 Diarrhea, unspecified; I25.10 Atherosclerotic heart disease of native coronary artery without angina pectoris; R11.0 Nausea; T50.905A Adverse effect of unspecified drugs, medicaments and biological substances, initial encounter; K86.9 Disease of pancreas, unspecified

== ENCOUNTER 2016-07-14 12:00 | Inpatient (IN) | payer MEDICARE, MEDICAID ==
[2016-07-14 12:03] VITALS: BMI 29.2
--- NOTE | 2016-07-14 13:25 | ED PDOC ---
HPI: Abdomen Time Seen by Provider: 07/14/16 12:17 Chief Complaint (Nursing): GI Problem Chief Complaint (Provider): abdominal pain History Per: Patient History/Exam Limitations: no limitations Onset/Duration Of Symptoms: Days (couple ) Outside of [place] travel?: No Additional Complaint(s): Vanessa May is an 80 year old female, with a previous medical history of end stage renal disease, diabetes and hypertension, who presents [facility] the ED from her [facility] with complaints of abdominal pain associated with nausea and vomiting for the past couple of days. Patient reports feeling like a "ball" is in her abdomen and feels uncomfortable. She denies any fever, chills, chest pain or shortness of breath.Patient is currently scheduled for dialysis every Saturday, and Saturday. She was last dialyzed on because she missed today's session. PMD: Dr. Holm Past Medical History Reviewed: Historical Data, Nursing Documentation, Vital Signs Vital Signs: Last Vital Signs Temp 98.5 F 07/14/16 12:02 Pulse 105 H 07/14/16 17:35 Resp 26 H 07/14/16 12:36 BP 125/61 07/14/16 12:02 Pulse Ox 97 07/14/16 17:35 - Medical History PMH: Anxiety, Arthritis, CAD, COPD, Dementia, Depression, Diabetes, HTN, Hypercholesterolemia, Hypothyroidism, Pneumonia, Chronic Kidney Disease, Seizures Denies: Atrial Fibrillation, Cardia Arrhythmia, CHF, HIV, Mitral Valve Prolapse, Peripheral Edema - Surgical History Surgical History: Cholecystectomy Denies: Pacemaker - Family History Family History: States: Unknown Family Hx - Immunization History Hx Tetanus Toxoid Vaccination: Yes - Home Medications Home Medications: Ambulatory Orders Medication Instructions Recorded Vitamin B Complex/Vit C/Folic 1 tab PO DAILY tab 05/29/16 [Nephro-Berkley] ALPRAZolam [Xanax] 0.25 mg PO HS 07/14/16 Acetaminophen [Tylenol 325mg tab] 650 mg PO Q4H PRN 07/14/16 Acetaminophen [Tylenol 325mg tab] 650 mg PO Q4H PRN 07/14/16 Levothyroxine [Synthroid] 25 mcg PO DAILY 07/14/16 Nut.tx.gluc.intoler,Lac-Fr,Soy 237 ml PO BID 07/14/16 [Ensure Glucerna Shake 237 ml] Ondansetron [Zofran Inj] 4 mg IM Q8H PRN 07/14/16 Pantoprazole Sodium [Protonix] 40 mg PO DAILY 07/14/16 guaiFENesin/Dextromethorphan 5 ml PO Q8H PRN 07/14/16 [Guaifenesin-Dm 10 MG/5 Ml-100 MG/5 Ml 5 Ml] - Allergies Allergies/Adverse Reactions: Allergies Allergy/AdvReac Type Severity Reaction Status Date / Time ambien AdvReac Severe HEADACHE Uncoded 05/11/16 17:37 Review of Systems ROS Statement: Except As Marked, All Systems Reviewed And Found Negative Constitutional: Negative for: Fever, Chills Cardiovascular: Negative for: Chest Pain Respiratory: Negative for: Shortness of Breath Gastrointestinal: Positive for: Nausea, Vomiting, Abdominal Pain Physical Exam - Reviewed Nursing Documentation Reviewed: Yes Vital Signs Reviewed: Yes - Physical Exam Appears: Positive for: Non-toxic, Uncomfortable. Negative for: Well (sick appearing) Head Exam: Positive for: ATRAUMATIC, NORMAL INSPECTION, NORMOCEPHALIC Skin: Positive for: Normal Color, Warm, Dry Eye Exam: Positive for: EOMI, Normal appearance, PERRL Neck: Positive for: Normal, Painless ROM, Supple Cardiovascular/Chest: Positive for: Chest Non Tender, Tachycardia (mildly ), Other (dialysis catheter placed on the right side of her chest with no erythema , swelling or tenderness) Respiratory: Positive for: Normal Breath Sounds Gastrointestinal/Abdominal: Positive for: Bowel Sounds, Soft, Tenderness ( epigastric tenderness ), Other (multiple regions of ecchymosis throughout abdomen secondary to insulin injections ). Negative for: Organomegaly, Mass, Distended, Guarding, Rebound Back: Positive for: Normal Inspection Extremity: Positive for: Normal ROM - Laboratory Results Result Diagrams: 07/14/16 13:40 07/14/16 13:40 - ECG ECG Rhythm: Positive for: Sinus Tachycardia, Right Bundle Branch Block. Negative for: ST/T Changes Interpretation Of Abn EKG: left axis deviation Rate: 105 (bpm) O2 Sat by Pulse Oximetry: 97 (RA) Pulse Ox Interpretation: Normal Medical Decision Making Medical Decision Making: Initial Impression: uremia, volume overload, hypercalcemia, other electrolyte abnormalities, dehydration, hyponatremia. Other conditions considered but less likely include infections and sepsis. Initial Plan: * VBG shock panel * CT abd & pelvis w/o contrast * EKG * lipase * magnesium * partial thromboplastin time * prothrombin time * Zofran 4 mg * blood culture * urine culture * urinalysis * reevaluation Report Date : 07/14/2016 14:12:17 My Comment : PROCEDURE: CT Abdomen and Pelvis without intravenous contrast HISTORY: vomiting abd pain COMPARISON: 05/03/2016 TECHNIQUE: Technique. Contrast Dose: Radiation dose: Total exam DLP = 1364 mGy-cm. This CT exam was performed using one or more of the following dose reduction techniques: Automated exposure control, adjustment of the mA and/or kV according to patient size, and/or use of iterative reconstruction technique. FINDINGS: LOWER THORAX: Unremarkable. LIVER: Unremarkable. No gross lesion or ductal dilatation. GALLBLADDER AND BILE DUCTS: Cholecystectomy. PANCREAS: Stable cystic mass in the pancreatic head. SPLEEN: Unremarkable. ADRENALS: Unremarkable. No mass. KIDNEYS AND URETERS: Unremarkable. No hydronephrosis. No solid mass. VASCULATURE: Unremarkable. No aortic aneurysm. BOWEL: Unremarkable. No obstruction. No gross mural thickening. APPENDIX: Unremarkable. Normal appendix. PERITONEUM: Unremarkable. No free fluid. No free air. LYMPH NODES: Unremarkable. No enlarged lymph nodes. BLADDER: Unremarkable. REPRODUCTIVE: 2.3 centimeter left ovarian cyst. BONES: No acute fracture. OTHER FINDINGS: Eventration of the anterior abdominal wall. IMPRESSION: Cholecystectomy. Stable anterior abdominal wall eventration. Stable cystic mass in the head of the pancreas. Left ovarian cyst. Overall no significant interval change. Discussed with [facility] resident who will admit for Dr Holm under service for the weekend. Scribe Attestation: Documented by Analy Solano, acting as a scribe for Eufemia Alejandro MD. Provider Scribe Attestation: All medical record entries made by the Scribe were at my direction and personally dictated by me. I have reviewed the chart and agree that the record accurately reflects my personal performance of the history, physical exam, medical decision making, and the department course for this patient. I have also personally directed, reviewed, and agree with the discharge instructions and disposition. Disposition - Clinical Impression Clinical Impression: Abdominal pain, Vomiting, UTI (urinary tract infection), bacterial, CKD ( chronic kidney disease) - Patient ED Disposition Is Patient to be Admitted: Yes Discussed With : Dannielle Harper Doctor Will See Patient In The: ED Counseled Patient/Family Regarding: Studies Performed, Diagnosis - Disposition Disposition Time: 17:34 Condition: FAIR - Pt Status Changed To: Hospital Disposition Of: Observation - POA Present On Arrival: None
[2016-07-14 13:38] LABS: VENOUS BLOOD GAS BASE EXCESS 4.7 mmol/L (0.0-2.0); VENOUS BLOOD GAS PCO2 58 mmHg (40-60); VENOUS BLOOD PH 7.35 (7.32-7.43)
[2016-07-14 14:07] LABS: BASO # 0.1 K/uL (0.0-0.2); BASO % 0.6 % (0.0-2.0); EOS # 0.1 K/uL (0.0-0.7); EOS % 0.9 % (0.0-4.0); HEMATOCRIT 38.7 % (34.0-47.0); LYMPH # 2.7 K/uL (1.0-4.3); LYMPH % 20.5 % (20.0-40.0); MEAN CELL VOLUME 88.4 fl (81.0-99.0); MEAN CORPUSCULAR HEMOGLOBIN 27.1 pg (27.0-31.0); MEAN CORPUSCULAR HGB CONC 30.7 g/dL (33.0-37.0); MONO # 0.9 K/uL (0.0-0.8); MONO % 6.7 % (0.0-10.0); NEUT # 9.5 K/uL (1.8-7.0); NEUT % 71.3 % (50.0-75.0); NRBC % 0.1 % (0.0-0.0); RED CELL DISTRIBUTION WIDTH 22.9 % (11.5-14.5); WHITE BLOOD COUNT 13.4 K/uL (4.8-10.8)
--- NOTE | 2016-07-14 14:13 | CT ---
PROCEDURE: CT Abdomen and Pelvis without intravenous contrast HISTORY: vomiting abd pain COMPARISON: 05/03/2016 TECHNIQUE: Technique. Contrast Dose: Radiation dose: Total exam DLP = 1364 mGy-cm. This CT exam was performed using one or more of the following dose reduction techniques: Automated exposure control, adjustment of the mA and/or kV according to patient size, and/or use of iterative reconstruction technique. FINDINGS: LOWER THORAX: Unremarkable. LIVER: Unremarkable. No gross lesion or ductal dilatation. GALLBLADDER AND BILE DUCTS: Cholecystectomy. PANCREAS: Stable cystic mass in the pancreatic head. SPLEEN: Unremarkable. ADRENALS: Unremarkable. No mass. KIDNEYS AND URETERS: Unremarkable. No hydronephrosis. No solid mass. VASCULATURE: Unremarkable. No aortic aneurysm. BOWEL: Unremarkable. No obstruction. No gross mural thickening. APPENDIX: Unremarkable. Normal appendix. PERITONEUM: Unremarkable. No free fluid. No free air. LYMPH NODES: Unremarkable. No enlarged lymph nodes. BLADDER: Unremarkable. REPRODUCTIVE: 2.3 centimeter left ovarian cyst. BONES: No acute fracture. OTHER FINDINGS: Eventration of the anterior abdominal wall. IMPRESSION: Cholecystectomy. Stable anterior abdominal wall eventration. Stable cystic mass in the head of the pancreas. Left ovarian cyst. Overall no significant interval change.
[2016-07-14 14:19] LABS: ALB/GLOB RATIO 0.9 (1.0-2.1); BILIRUBIN,TOTAL 0.8 mg/dl (0.2-1.3); CALCIUM 8.7 mg/dL (8.4-10.2); MAGNESIUM 1.9 MG/DL (1.6-2.3); POTASSIUM 3.6 MMOL/L (3.6-5.0); TOTAL PROTEIN 6.2 G/DL (6.3-8.2)
--- NOTE | 2016-07-14 16:03 | RAD ---
HISTORY: cough COMPARISON: No prior. FINDINGS: LUNGS: No active pulmonary disease. PLEURA: No significant pleural effusion identified, no pneumothorax apparent. CARDIOVASCULAR: Normal. OSSEOUS STRUCTURES: No significant abnormalities. VISUALIZED UPPER ABDOMEN: Normal. OTHER FINDINGS: Right Port-A-Cath in place. IMPRESSION: No active disease.
[2016-07-14 16:52] LABS: RBC URINE 21 /hpf (0-3); URINE BACTERIA MANY (<OCC); URINE BILIRUBIN SMALL (NEGATIVE); URINE BLOOD NEGATIVE (NEGATIVE); URINE COLOR AMBER (YELLOW); URINE GLUCOSE (UA) NEG (Normal); URINE KETONE TRACE mg/dL (NEGATIVE); URINE LEUKOCYTE ESTERASE MOD Leu/uL (Negative); URINE PROTEIN 30 mg/dL (NEGATIVE); WBC URINE 443 /hpf (0-5)
[2016-07-14] MEDS ORDERED: cefTRIAXone (Rocephin) 1 gm Inj ONE (17:47)
--- NOTE | 2016-07-14 18:20 | CP.PCM.HP ---
History of Present Illness - History of Present Illness History of Present Illness: CC: Nausea and "spitting up" 80F brought in from [facility] where she was being treated for continued renal failure. Complaint was for nausea and early satiety for 2 days without associated fevers, diarrhea, urinary pain/burning/frequency, chills, vomiting but "spitting a lot". Pt denies any SOB from baseline, denies chest pain or history of PR/irregular HR/CVA. Missed dialysis today PMD: Dr Holm PMH: COPD (oxygen dependent), Diabetes, HTN, pancreatic mass, Arthritis, Anxiety , Dialysis (//Sat), Hypothyroid PSH: Cholecystectomy, Pituitary removed? Allergies: Estela ERNIE: See Med Rec ED COURSE 36.9- 102- 125/61- 18- 97% 2LNC EKG: sinus, HR-105, RBB, no acute changes when compared to prior 05/2016 CXR: Clara-Cath in place, no acute disease CT Abd/Pelvis: No significant interval changes (stable pancreatic mass) CBC: Mild leukocytosis, no shift, acute thrombocytopenia CMP: Cr- 1.8H, GFR-27, ALP- 141H Lipase: 19L Troponin: 0.0180 UA: Bacturia Rocephin x1 Zofran x1 Present on Admission - Present on Admission Any Indicators Present on Admission: No Past Patient History - Past Medical History & Family History Past Medical History?: Yes - Past Social History Smoking Status: Never Smoked - CARDIAC Hx Cardiac Disorders: Yes - PULMONARY Hx Respiratory Disorders: Yes - NEUROLOGICAL Hx Neurological Disorder: Yes - HEENT Hx HEENT Problems: No - RENAL Hx Chronic Kidney Disease: Yes - ENDOCRINE/METABOLIC Hx Endocrine Disorders: Yes - HEMATOLOGICAL/ONCOLOGICAL Hx Human Immunodeficiency Virus (HIV): No - INTEGUMENTARY Hx Dermatological Problems: No - MUSCULOSKELETAL/RHEUMATOLOGICAL Hx Musculoskeletal Disorders: Yes - GASTROINTESTINAL Hx Gastrointestinal Disorders: No - GENITOURINARY/GYNECOLOGICAL Hx Genitourinary Disorders: Yes - PSYCHIATRIC Hx Psychophysiologic Disorder: Yes - SURGICAL HISTORY Hx Cholecystectomy: Yes - ANESTHESIA Hx Anesthesia: Yes Hx Anesthesia Reactions: No Hx Malignant Hyperthermia: No Meds Allergies/Adverse Reactions: Allergies Allergy/AdvReac Type Severity Reaction Status Date / Time ambmichelle AdvReac Severe HEADACHE Uncoded 05/11/16 17:37 Physical Exam - Constitutional Appears: Well, Non-toxic, No Acute Distress, Older Than Stated Age - Head Exam Head Exam: ATRAUMATIC, NORMAL INSPECTION - Eye Exam Eye Exam: EOMI, Normal appearance - ENT Exam ENT Exam: Mucous Membranes Dry, Normal Exam - Neck Exam Neck exam: Positive for: Full Rom, Normal Inspection - Respiratory Exam Respiratory Exam: Clear to Auscultation Bilateral, NORMAL BREATHING PATTERN. absent: Rales, Wheezes - Cardiovascular Exam Cardiovascular Exam: Tachycardia, REGULAR RHYTHM. absent: JVD - GI/Abdominal Exam GI & Abdominal Exam: Normal Bowel Sounds (obese, scattered ecchymosis from SC injections ), Soft. absent: Tenderness - Extremities Exam Extremities exam: Positive for: full ROM, normal capillary refill, pedal pulses present. Negative for: calf tenderness, normal inspection (Hyperpigmentation R> L likely 2/2 venous stasis), pedal edema - Neurological Exam Neurological exam: Alert, Oriented x3 - Psychiatric Exam Psychiatric exam: Normal Affect, Normal Mood - Skin Skin Exam: Normal Color, Warm Results - Vital Signs Recent Vital Signs: Last Vital Signs Temp 36.9 C 07/14/16 17:44 Pulse 111 H 07/14/16 17:44 Resp 20 07/14/16 17:44 BP 115/65 07/14/16 17:44 Pulse Ox 97 07/14/16 17:44 - Labs Result Diagrams: 07/14/16 13:40 07/14/16 13:40 Assessment & Plan (1) UTI (urinary tract infection), bacterial Assessment and Plan: Likely contributed to nausea/lack of appetite. - Empirically Rocephin 1g, IV, Daily - f/u UCx - f/u labs in AM Status: Acute (2) Thrombocytopenia Assessment and Plan: Acute (>300 and now <100) with mild anemia, unknown etiology at this time. Medication list provided by reviewed and unlikely 2/2 to current medications , possibly 2/2 dialysis? there are reports of acute drops due to dialyzer membrane. However, at this time will monitor and refrain from Heparin or Lovenox useage. - f/u AM labs - monitor for now Status: Acute (3) DVT prophylaxis Assessment and Plan: Due to significant drop in platelets of unknown etiology, will use SCDs b/l continuous at this time. Status: Acute (4) HTN (hypertension) Assessment and Plan: Well-controlled, will continue to monitor. No medications on transfer documents for HTN. Status: Chronic Priority: Medium (5) COPD (chronic obstructive pulmonary disease) Assessment and Plan: Chronic, stable. Again no medications. Status: Chronic Priority: Medium (6) DMII (diabetes mellitus, type 2) Assessment and Plan: Although a recent A1C-7.0, patient random glucose 87 and no medications listed. - MOD CHO for now - Accu-check ACHS Status: Chronic Priority: Medium (7) Hypothyroidism Assessment and Plan: Chronic, TSH pending. - c/w Synthroid - f/u TSH Status: Chronic Priority: Low (8) Renal insufficiency Assessment and Plan: SHRAVAN on last admission and remains on dialysis 3x/week through [facility](/) with Dr Patterson. Will receive dialysis this evening as per Dr Aguilera - Nephrology Consult - f/u labs in AM Status: Acute (9) Pancreatic abnormality Assessment and Plan: CT this admission reporting stable size and Lipase wnl. Status: Chronic Priority: High (10) Normocytic anemia Assessment and Plan: Likely multifactorial as there are no signs of acute blood loss. Combination of chronic disease, renal failure, but will evaluate for iron/B12 involvement. - Iron w/u - Trend - Treat as indicated by w/u Status: Chronic
--- NOTE | 2016-07-14 19:32 | CP.PCM.PN ---
Subjective - Date & Time of Evaluation Date of Evaluation: 07/14/16 Time of Evaluation: 19:31 - Subjective Subjective: on hd tonight consult dictated cont hd tts will follow Objective - Vital Signs/Intake and Output Vital Signs (last 24 hours): Temp Pulse Resp BP Pulse Ox 98.4 F 111 H 20 119/76 100 07/14/16 19:00 07/14/16 19:00 07/14/16 19:00 07/14/16 19:00 07/14/16 19:00 - Medications Medications: Current Medications Alprazolam (Xanax) 0.25 mg PO HS ROCAEL Stop: 07/21/16 22:01 Guaifenesin/Dextromethorphan (Robitussin Dm) 5 ml PO Q8H PRN PRN Reason: Cough Home Med (Nut.Tx.Gluc.Intoler,Lac-Fr,Soy [Glucerna]) 237 ml PO BID ROCAEL Ceftriaxone Sodium 1 gm/ (Sodium Chloride) 100 mls @ 100 mls/hr IVPB DAILY ROCAEL Levothyroxine Sodium (Synthroid) 25 mcg PO DAILY@0630 ROCAEL Pantoprazole Sodium (Protonix Ec Tab) 40 mg PO DAILY ROCAEL Vitamin B Complex/Vit C/Folic Acid (Nephro-Berkley) 1 tab PO DAILY ROCAEL - Labs Labs: PT 11.2 SECONDS (9.6-11.2) 07/14/16 13:40 INR 1.08 (0.92-1.08) 07/14/16 13:40 APTT 26.0 SECONDS (23.3-32.5) 07/14/16 13:40
--- NOTE | 2016-07-14 22:35 | CON ---
DATE: 07/14/2016 REQUESTING PHYSICIAN: Dr. Eddie Holm. HISTORY OF PRESENT ILLNESS: This 80-year-old female is being seen in renal consultation [facility] of chronic renal failure, end-stage renal disease and dialysis dependent. She is on dialysis , , and Saturday at the [facility] under my care. She has been on di alysis since May when she was here with a significant increase in her renal failure and was seen by Dr. Patterson and myself during that time. She subsequently was discharged at the end of May to [facility] and has been at the outpatient unit there without events. Her usual days are Saturday, , Saturday; last treatment was without event, but over the last day or two, she developed in tractable nausea and some vomiting along with diarrhea, felt weak and ill and came to the Emergency R oom for further workup and evaluation. She is well known to pr and was initially seen in renal consu ltation on 10/12/2013 at the request of Dr. Holm because of persistent azotemia. The creatinine a t that time was 1.35; MDRD clearance was 37. History was obtained from the patient with her family. There was more than a 10-year history of hypertension. She also had diabetes mellitus, but they wer e not sure for how long. They denied any other previous history or knowledge of kidney disease. The y denied any history of nephritis, nephrosis, Bright's disease, scarlet fever, diphtheria, or rheumat ic heart disease. They denied chronic urinary tract infections, bladder infections, cystitis, or everette lonephritis. There was rare frequency, no urgency or hesitancy. There was nocturia 1-2 times per ni ght. She does have a history of COPD. 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 She had been on Celebrex for pain for some time, which may have been a contributing factor to her renal failure. She was treated for metabolic bone disease and started on phosphate binders and followed in the office since that time. When last seen in the office in December of last year, her pr dicines included acetaminophen 325, atorvastatin 40, ergocalciferol 50,000 a week, folic acid 1 mg a day, furosemide 40, hydrocortisone 10, levothyroxine 25 mcg, lorazepam 1 mg, losartan 100, pantoprazo le 40, Zofran p.r.n., and Zyrtec 10 and I believe that she was also on Renvela. At that time, she smiley d one of the best creatinines I had seen. She had been on before that time, allopurinol, Renvela and Folbee Plus in addition to the above. She subsequently was admitted in May of this year with sign ificant azotemia and uremic symptoms and started on dialysis and has been on dialysis since that time . SOCIAL HISTORY: Born 1935 in [place], , nonsmoker, nondrinker, no addictive drugs. [place] te diet, more than 8 hours sleep, no exercise program. FAMILY HISTORY: Noncontributory, 2 sons and a daughter in apparent good health. SURGICAL HISTORY: Gallbladder removed at [facility] 2005, cataract in 2001. REVIEW OF SYSTEMS: Arthritis, diabetes, hypertension, gallbladder is out, pituitary tumor as outline d with some change in the eye sight, some ankle swelling on occasion. She has been wheelchair bound on and off. She has had problems with diarrhea in the past and has severe arthritis of the back. Re st of 12-point review of systems is negative, except as outlined above. Number of pregnancies: 3 pr egnancies, 3 births, no problems with toxemia, etc. PHYSICAL EXAMINATION: GENERAL: Shows a well-developed, pale female in no acute distress, lying flat in bed and mildly obes e. HEAD: Normocephalic, atraumatic. EYES: PERRLA, EOMs full, unable to visualize fundi. NECK: Supple. Neck veins flat and full above. No bruit. Thyroid not enlarged. THORAX: Symmetric. LUNGS: Clear to percussion and auscultation. CARDIAC: PMI in the fifth left intercostal space midclavicular line. Heart sounds are good quality. S1 greater than S2 at the apex. S2 greater than S1 at the base. A2 greater than P2. No significa nt murmurs, gallops, or rubs. ABDOMEN: Obese, soft, nontender, no gross organomegaly, no mass, no bruit. EXTREMITIES: Trace to no edema. Pulses are equal and intact. NEUROLOGIC: Oriented to time, place, and person. Gross motor, sensory, and coordination within norm al limits. She is upset that she is here at [facility]. IMPRESSION: Chronic renal failure, end-stage renal disease in a hypertensive female with multiple me dical problems as outlined above. We will continue HD treatments while here. We will follow. Dr. Sybil haney will follow with us. Thank you for involving me in your patient's care. Tj Tompkins MD cc: [id number] TT: 07/14/2016 22:34:46 Confirmation # [id number] Dictation # [id number] mn
[2016-07-14 22:42] LABS: CALCIUM 8.4 mg/dL (8.4-10.2); POTASSIUM 3.4 MMOL/L (3.6-5.0)
[2016-07-15] MEDS: Levothyroxine 25 MCG TAB PO SCH (06:06)
[2016-07-15 08:19] LABS: BASO % 0.4 % (0.0-2.0); EOS # 0.1 K/uL (0.0-0.7); EOS % 1.4 % (0.0-4.0); HEMATOCRIT 35.3 % (34.0-47.0); LYMPH # 2.4 K/uL (1.0-4.3); LYMPH % 23.3 % (20.0-40.0); MEAN CELL VOLUME 88.3 fl (81.0-99.0); MEAN CORPUSCULAR HEMOGLOBIN 27.8 pg (27.0-31.0); MEAN CORPUSCULAR HGB CONC 31.6 g/dL (33.0-37.0); MEAN PLATELET VOLUME 8.1 fl (7.2-11.7); MONO # 0.6 K/uL (0.0-0.8); MONO % 5.7 % (0.0-10.0); NEUT # 7.3 K/uL (1.8-7.0); NEUT % 69.2 % (50.0-75.0); RED CELL DISTRIBUTION WIDTH 22.4 % (11.5-14.5); WHITE BLOOD COUNT 10.5 K/uL (4.8-10.8)
[2016-07-15] MEDS ORDERED: Potassium Chloride 20 mEq ER Tab PO ONE (08:20)
[2016-07-15 08:35] LABS: BLOOD UREA NITROGEN 17 mg/dl (7-17); CALCIUM 8.3 mg/dL (8.4-10.2); CARBON DIOXIDE 26 mmol/L (22-30); CHLORIDE 102 mmol/L (98-107); GFR AFRICAN-AMERICAN 35; GLUCOSE,RANDOM 74 mg/dL (65-105); POTASSIUM 3.5 MMOL/L (3.6-5.0); SODIUM 137 mmol/l (132-148)
[2016-07-15 08:51] LABS: IRON 33 ug/dL (37-170)
[2016-07-15] MEDS: NUT TX GLUC INTOLER LAC FR SOY PO SCH ×2 (08:53→16:42)
[2016-07-15] MEDS: Multivitamin Vitamin B Complex (Nephro-Vite) Tab PO SCH (08:53)
[2016-07-15] MEDS: Pantoprazole 40 mg EC Tab PO SCH (08:53)
[2016-07-15 08:54] LABS: THYROID STIMULATING HORMONE 0.16 mIU/ML (0.46-4.68)
[2016-07-15] MEDS: guaiFENesin DM 100 mg-10 mg/5 ml UD PO PRN (08:54)
--- NOTE | 2016-07-15 10:02 | CP.PCM.PN ---
Subjective - Date & Time of Evaluation Date of Evaluation: 07/15/16 Time of Evaluation: 09:30 - Subjective Subjective: Follow up for UTI. No overnight events: afebrile with mild tackycarida at 101 Pt sitting up in bed, NAD. Pt states she is feeling well, nausea improved and tolerating liquid po without difficulty. Denies n/v/f/chills. Denies dysuria, hematuria, flank and suprapubic pain. Denies sob, chest pain, palpitation. Objective - Vital Signs/Intake and Output Vital Signs (last 24 hours): Temp Pulse Resp BP Pulse Ox 97.6 F 91 H 20 130/77 98 07/15/16 07:35 07/15/16 07:35 07/15/16 07:35 07/15/16 07:35 07/15/16 07:35 - Medications Medications: Current Medications Alprazolam (Xanax) 0.25 mg PO HS [facility] Stop: 07/21/16 22:01 Last Admin: 07/14/16 21:18 Dose: 0.25 mg Guaifenesin/Dextromethorphan (Robitussin Dm) 5 ml PO Q8H PRN PRN Reason: Cough Last Admin: 07/15/16 08:54 Dose: 5 ml Home Med (Nut.Tx.Gluc.Intoler,Lac-Fr,Soy [Glucerna]) 237 ml PO BID [facility] Last Admin: 07/15/16 08:53 Dose: 237 ml Ceftriaxone Sodium 1 gm/ (Sodium Chloride) 100 mls @ 100 mls/hr IVPB DAILY [facility] Last Admin: 07/15/16 08:54 Dose: 100 mls/hr Levothyroxine Sodium (Synthroid) 25 mcg PO DAILY@0630 [facility] Last Admin: 07/15/16 06:06 Dose: 25 mcg Pantoprazole Sodium (Protonix Ec Tab) 40 mg PO DAILY [facility] Last Admin: 07/15/16 08:53 Dose: 40 mg Vitamin B Complex/Vit C/Folic Acid (Nephro-Berkley) 1 tab PO DAILY [facility] Last Admin: 07/15/16 08:53 Dose: 1 tab - Labs Labs: 07/15/16 06:00 07/15/16 06:00 PT 11.2 SECONDS (9.6-11.2) 07/14/16 13:40 INR 1.08 (0.92-1.08) 07/14/16 13:40 APTT 26.0 SECONDS (23.3-32.5) 07/14/16 13:40 - Additional Findings Additional findings: - Constitutional Appears: Well, Non-toxic, No Acute Distress, Older Than Stated Age - Head Exam Head Exam: ATRAUMATIC, NORMAL INSPECTION - Eye Exam Eye Exam: EOMI, Normal appearance - ENT Exam ENT Exam: Mucous Membranes Dry, Normal Exam - Neck Exam Neck exam: Positive for: Full Rom, Normal Inspection - Respiratory Exam Respiratory Exam: Clear to Auscultation Bilateral, NORMAL BREATHING PATTERN. absent: Rales, Wheezes - Cardiovascular Exam Cardiovascular Exam: Tachycardia, REGULAR RHYTHM. absent: JVD - GI/Abdominal Exam GI & Abdominal Exam: Normal Bowel Sounds (obese, scattered ecchymosis from SC injections ), Soft. absent: Tenderness - Extremities Exam Extremities exam: Positive for: full ROM, normal capillary refill, pedal pulses present. Negative for: calf tenderness, normal inspection (Hyperpigmentation R> L likely 2/2 venous stasis), pedal edema - Neurological Exam Neurological exam: Alert, Oriented x3 - Psychiatric Exam Psychiatric exam: Normal Affect, Normal Mood - Skin Skin Exam: Normal Color, Warm. Dialysis port on right upper chest: dry clean intact Assessment and Plan - Assessment and Plan (Free Text) Assessment: 80F with pmhx of COPD (oxygen dependent), Diabetes, HTN, pancreatic mass, Arthritis, Anxiety, Dialysis (//Sat), Hypothyroid brought in from [facility] where she was being treated for continued renal failure c/o nausea admitted for complicated uti. (1) UTI (urinary tract infection), bacterial Assessment and Plan: Likely contributed to nausea/lack of appetite. - c/w Rocephin 1g, IV, Daily renal dose - UCx: gram negative >100,000 - f/u labs in AM Status: Acute (2) Thrombocytopenia Assessment and Plan: Acute (>300 and now <100) with mild anemia, unknown etiology at this time. Medication list provided by reviewed and unlikely 2/2 to current medications , possibly 2/2 dialysis? there are reports of acute drops due to dialyzer membrane. However, at this time will monitor and refrain from Heparin or Lovenox useage. - f/u AM labs - monitor for now Status: Acute (3) DVT prophylaxis Assessment and Plan: Due to significant drop in platelets of unknown etiology, will use SCDs b/l continuous at this time. Status: Acute (4) HTN (hypertension) Assessment and Plan: Well-controlled, will continue to monitor. No medications on transfer documents for HTN. Status: Chronic Priority: Medium (5) COPD (chronic obstructive pulmonary disease) Assessment and Plan: Chronic, stable. Again no medications. Status: Chronic Priority: Medium (6) DMII (diabetes mellitus, type 2) Assessment and Plan: Although a recent A1C-7.0, patient random glucose 87 and no medications listed. - MOD CHO for now - Accu-check ACHS Status: Chronic Priority: Medium (7) Hypothyroidism Assessment and Plan: Chronic, TSH pending. - c/w Synthroid - f/u TSH Status: Chronic Priority: Low (8) Renal insufficiency Assessment and Plan: SHRAVAN on last admission and remains on dialysis 3x/week through Rt port(//) with Dr Patterson. Will receive dialysis as per Dr Aguilera - Nephrology Consult - f/u labs in AM Status: Acute (9) Pancreatic abnormality Assessment and Plan: CT this admission reporting stable size and Lipase wnl. Status: Chronic Priority: High (10) Normocytic anemia Assessment and Plan: Likely multifactorial as there are no signs of acute blood loss. Combination of chronic disease, renal failure, but will evaluate for iron/B12 involvement. - Iron w/u - Trend - Treat as indicated by w/u Status: Chronic
[2016-07-15 18:52] LABS: FOLATE > 20.0 ng/mL
[2016-07-16 06:21] LABS: HEMATOCRIT 34.5 % (34.0-47.0); MEAN CELL VOLUME 88.1 fl (81.0-99.0); MEAN CORPUSCULAR HEMOGLOBIN 27.3 pg (27.0-31.0); RED CELL DISTRIBUTION WIDTH 22.4 % (11.5-14.5); WHITE BLOOD COUNT 10.1 K/uL (4.8-10.8)
[2016-07-16] MEDS: Levothyroxine 25 MCG TAB PO SCH (07:43)
[2016-07-16] MEDS: Multivitamin Vitamin B Complex (Nephro-Vite) Tab PO SCH (09:03)
[2016-07-16] MEDS: Pantoprazole 40 mg EC Tab PO SCH (09:04)
[2016-07-16] MEDS: NUT TX GLUC INTOLER LAC FR SOY PO SCH ×2 (09:09→17:03)
--- NOTE | 2016-07-16 09:10 | CARD ---
APPROVED REPORT EKG Measurement Heart [id number] ID [id number] <Conclusion> Sinus tachycardia Possible Left atrial enlargement Left axis deviation Right bundle branch block Possible anterior infarct, age undetermined Abnormal ECG
--- NOTE | 2016-07-16 09:30 | CP.PCM.PN ---
Subjective - Date & Time of Evaluation Date of Evaluation: 07/16/16 Time of Evaluation: 07:15 - Subjective Subjective: Patient being Follow up for UTI. No overnight events, but afebrile with mild tackycardia 100-106/ min Patient was seen and examined at bedside this morning. Patient is lying in bed, in no acute distress, complaining of lack of appetite, nausea, without vomiting. Denies chest pain, SOB, chills, headaches, dizziness at this evaluation. Objective - Vital Signs/Intake and Output Vital Signs (last 24 hours): Temp Pulse Resp BP Pulse Ox 98.2 F 102 H 20 134/78 100 07/16/16 07:47 07/16/16 07:47 07/16/16 07:47 07/16/16 07:47 07/16/16 07:47 - Medications Medications: Current Medications Alprazolam (Xanax) 0.25 mg PO HS [facility] Stop: 07/21/16 22:01 Last Admin: 07/15/16 21:31 Dose: 0.25 mg Guaifenesin/Dextromethorphan (Robitussin Dm) 5 ml PO Q8H PRN PRN Reason: Cough Last Admin: 07/15/16 08:54 Dose: 5 ml Home Med (Nut.Tx.Gluc.Intoler,Lac-Fr,Soy [Glucerna]) 237 ml PO BID [facility] Last Admin: 07/16/16 09:09 Dose: 237 ml Ceftriaxone Sodium 1 gm/ (Sodium Chloride) 100 mls @ 100 mls/hr IVPB DAILY [facility] Last Admin: 07/16/16 09:03 Dose: 100 mls/hr Levothyroxine Sodium (Synthroid) 25 mcg PO DAILY@0630 [facility] Last Admin: 07/16/16 07:43 Dose: 25 mcg Pantoprazole Sodium (Protonix Ec Tab) 40 mg PO DAILY [facility] Last Admin: 07/16/16 09:04 Dose: 40 mg Vitamin B Complex/Vit C/Folic Acid (Nephro-Berkley) 1 tab PO DAILY [facility] Last Admin: 07/16/16 09:03 Dose: 1 tab - Labs Labs: 07/16/16 05:47 PT 11.2 SECONDS (9.6-11.2) 07/14/16 13:40 INR 1.08 (0.92-1.08) 07/14/16 13:40 APTT 26.0 SECONDS (23.3-32.5) 07/14/16 13:40 - Constitutional Appears: Non-toxic, No Acute Distress - ENT Exam ENT Exam: Mucous Membranes Moist - Respiratory Exam Respiratory Exam: Clear to Ausculation Bilateral, NORMAL BREATHING PATTERN. absent: Rales, Rhonchi, Wheezes - Cardiovascular Exam Cardiovascular Exam: Tachycardia, REGULAR RHYTHM, +S1, +S2 - GI/Abdominal Exam GI & Abdominal Exam: Soft, Normal Bowel Sounds. absent: Guarding, Rigid, Tenderness - Extremities Exam Extremities Exam: Normal Inspection. absent: Calf Tenderness, Pedal Edema - Back Exam Back Exam: absent: CVA tenderness (L), CVA tenderness (R) - Neurological Exam Neurological Exam: Alert, Awake, Oriented x3 - Skin Skin Exam: Dry, Intact, Normal Color Assessment and Plan - Assessment and Plan (Free Text) Assessment: 80 F with pmhx of COPD (oxygen dependent), Diabetes, HTN, pancreatic mass, Arthritis, Anxiety, Dialysis (//Sat), Hypothyroid brought in from [facility] where she was being treated for continued renal failure c/o nausea admitted for complicated UTI. Plan: (1) UTI (urinary tract infection), bacterial Likely contributed to nausea/lack of appetite. - c/w Rocephin 1g, IV, Daily renal dose - UCx: gram negative >100,000/ POsitive for Klebsiella Pneumoniae Ssp - CBC: H/H: 10.7/34.5, WBC: 10.1/WNL -ID consulted appreciated. Waiting for recommendations. Patient has a history of two previous episodes UTI, with positive Urine Cx for Gram negative (2) Thrombocytopenia Resolved, this morning Platelet count 155 Acute (>300 and now <100) with mild anemia, unknown etiology at this time. Medication list provided by reviewed and unlikely 2/2 to current medications , possibly 2/2 dialysis? there are reports of acute drops due to dialyzer membrane. -Continue monitoring (3) DVT prophylaxis -SCDs -Resolved thrombocytopenia in two consecutive lab -Started Heparin 5000 units SC BID today -Moderate CKD: GFR 36 (4) HTN (hypertension) Well-controlled, will continue to monitor. No medications on transfer documents for HTN. (5) COPD (chronic obstructive pulmonary disease) Chronic, stable. Again no medications. (6) DMII (diabetes mellitus, type 2) Although a recent A1C-7.0, patient random glucose 87 and no medications listed. - MOD CHO for now - Accu-check ACHS (7) Hypothyroidism -Chronic, asymptomatic - c/w Synthroid - TSH on 07/15/16 was low 0.16 -Consider adjustments (8) Renal insufficiency SHRAVAN on last admission and remains on dialysis 3x/week through Rt port() with Dr Patterson. Will receive dialysis as per Dr Alanis -Patient receives dialysis on Saturday, and Saturday -Nephrology Consult (9) Pancreatic abnormality CT scan this admission reporting stable size and Lipase wnl. (10) Normocytic anemia Likely multifactorial as there are no signs of acute blood loss. Combination of chronic disease, renal failure, but will evaluate for iron/B12 involvement. - Iron w/u - Trend - Treat as indicated by w/u
[2016-07-16 13:02] LABS: CALCIUM 8.2 mg/dL (8.4-10.2); POTASSIUM 3.7 MMOL/L (3.6-5.0)
--- NOTE | 2016-07-16 15:05 | RAD ---
HISTORY: Cough. Portable upright study 10:30. COMPARISON: 07/14/2016. FINDINGS: LUNGS: No active pulmonary disease. PLEURA: No significant pleural effusion identified, no pneumothorax apparent. CARDIOVASCULAR: No radiographic findings to suggest acute or significant cardiovascular disease. Stable position of central line venous access catheter. OSSEOUS STRUCTURES: No significant abnormalities. VISUALIZED UPPER ABDOMEN: Normal. OTHER FINDINGS: None. IMPRESSION: No significant interval change compared to the prior examination(s).
--- NOTE | 2016-07-17 00:08 | CP.PCM.PN ---
Subjective - Date & Time of Evaluation Date of Evaluation: 07/16/16 Time of Evaluation: 14:00 - Subjective Subjective: SEEN ON RENAL F/U HER BUN AND CREATININ R RUNNING LOW WILL COLLECT 24 H URINE FOR CREAT CLEARANCE Objective - Vital Signs/Intake and Output Vital Signs (last 24 hours): Temp Pulse Resp BP Pulse Ox 99.3 F 104 H 20 103/66 100 07/16/16 16:37 07/16/16 16:37 07/16/16 16:37 07/16/16 16:37 07/16/16 16:37 - Medications Medications: Current Medications Alprazolam (Xanax) 0.25 mg PO HS [facility] Stop: 07/21/16 22:01 Last Admin: 07/16/16 22:00 Dose: 0.25 mg Guaifenesin/Dextromethorphan (Robitussin Dm) 5 ml PO Q8H PRN PRN Reason: Cough Last Admin: 07/15/16 08:54 Dose: 5 ml Heparin Sodium (Porcine) (Heparin) 5,000 units SC Q12 ROCAEL PRN Reason: Protocol Last Admin: 07/16/16 22:00 Dose: 5,000 units Home Med (Nut.Tx.Gluc.Intoler,Lac-Fr,Soy [Glucerna]) 237 ml PO BID [facility] Last Admin: 07/16/16 17:03 Dose: Not Given Ceftriaxone Sodium 1 gm/ (Sodium Chloride) 100 mls @ 100 mls/hr IVPB DAILY [facility] Last Admin: 07/16/16 09:03 Dose: 100 mls/hr Levothyroxine Sodium (Synthroid) 25 mcg PO DAILY@0630 [facility] Last Admin: 07/16/16 07:43 Dose: 25 mcg Pantoprazole Sodium (Protonix Ec Tab) 40 mg PO DAILY [facility] Last Admin: 07/16/16 09:04 Dose: 40 mg Vitamin B Complex/Vit C/Folic Acid (Nephro-Berkley) 1 tab PO DAILY [facility] Last Admin: 07/16/16 09:03 Dose: 1 tab - Labs Labs: 07/16/16 05:47 07/16/16 Unknown PT 11.2 SECONDS (9.6-11.2) 07/14/16 13:40 INR 1.08 (0.92-1.08) 07/14/16 13:40 APTT 26.0 SECONDS (23.3-32.5) 07/14/16 13:40 Assessment and Plan - Assessment and Plan (Free Text) Assessment: SHRAVAN ON HD .. D/C FURTHER HD 24 H URINR FOR CLEARANCE
[2016-07-17] MEDS: Levothyroxine 25 MCG TAB PO SCH (05:30)
[2016-07-17] MEDS: Pantoprazole 40 mg EC Tab PO SCH (08:57)
[2016-07-17] MEDS: Multivitamin Vitamin B Complex (Nephro-Vite) Tab PO SCH (08:57)
[2016-07-17] MEDS: NUT TX GLUC INTOLER LAC FR SOY PO SCH ×2 (09:46→20:05)
--- NOTE | 2016-07-17 13:13 | CP.PCM.PN ---
Subjective - Date & Time of Evaluation Date of Evaluation: 07/17/16 Time of Evaluation: 07:15 - Subjective Subjective: Patient being Follow up for complicated UTI. Patient was seen and examined at bedside. Patient had an eventful night. Patient is laying in bed, in no acute distress. Patient denies chest pain, SOB, nausea, vomiting, abdominal pain of other complains at this evaluation. Objective - Vital Signs/Intake and Output Vital Signs (last 24 hours): Temp Pulse Resp BP Pulse Ox 99.2 F 102 H 20 106/67 89 L 07/17/16 08:03 07/17/16 08:03 07/17/16 08:03 07/17/16 08:03 07/17/16 08:03 - Medications Medications: Current Medications Alprazolam (Xanax) 0.25 mg PO HS [facility] Stop: 07/21/16 22:01 Last Admin: 07/16/16 22:00 Dose: 0.25 mg Guaifenesin/Dextromethorphan (Robitussin Dm) 5 ml PO Q8H PRN PRN Reason: Cough Last Admin: 07/15/16 08:54 Dose: 5 ml Heparin Sodium (Porcine) (Heparin) 5,000 units SC Q12 ROCAEL PRN Reason: Protocol Last Admin: 07/17/16 08:55 Dose: 5,000 units Home Med (Nut.Tx.Gluc.Intoler,Lac-Fr,Soy [Glucerna]) 237 ml PO BID [facility] Last Admin: 07/17/16 09:46 Dose: Not Given Ceftriaxone Sodium 1 gm/ (Sodium Chloride) 100 mls @ 100 mls/hr IVPB DAILY [facility] Last Admin: 07/17/16 08:56 Dose: 100 mls/hr Pantoprazole Sodium (Protonix Ec Tab) 40 mg PO DAILY [facility] Last Admin: 07/17/16 08:57 Dose: 40 mg Vitamin B Complex/Vit C/Folic Acid (Nephro-Berkley) 1 tab PO DAILY [facility] Last Admin: 07/17/16 08:57 Dose: 1 tab - Labs Labs: 07/16/16 05:47 07/16/16 Unknown PT 11.2 SECONDS (9.6-11.2) 07/14/16 13:40 INR 1.08 (0.92-1.08) 07/14/16 13:40 APTT 26.0 SECONDS (23.3-32.5) 07/14/16 13:40 - Constitutional Appears: Non-toxic, No Acute Distress - ENT Exam ENT Exam: Mucous Membranes Moist - Respiratory Exam Respiratory Exam: Clear to Ausculation Bilateral, NORMAL BREATHING PATTERN - Cardiovascular Exam Cardiovascular Exam: REGULAR RHYTHM, +S1, +S2 - GI/Abdominal Exam GI & Abdominal Exam: Soft, Normal Bowel Sounds. absent: Distended, Tenderness - Extremities Exam Extremities Exam: Normal Inspection. absent: Calf Tenderness, Pedal Edema - Back Exam Back Exam: absent: CVA tenderness (L), CVA tenderness (R) - Neurological Exam Neurological Exam: Alert, Awake, Oriented x3 - Skin Skin Exam: Dry, Normal Color Additional comments: Erythema, stage 1 pressure ulcer on bony area located between the buttocks. Assessment and Plan - Assessment and Plan (Free Text) Assessment: 80 F with pmhx of COPD (oxygen dependent), Diabetes, HTN, pancreatic mass, Arthritis, Anxiety, Dialysis (//Sat), Hypothyroid brought in from [facility] where she was being treated for continued renal failure c/o nausea admitted for complicated UTI. Plan: UTI (urinary tract infection), bacterial Likely contributed to nausea/lack of appetite. - c/w Rocephin 1g, IV, Daily renal dose - UCx: gram negative >100,000/ POsitive for Klebsiella Pneumoniae Ssp - CBC: H/H: 10.7/34.5, WBC: 10.1/WNL -ID consulted appreciated. Pt can be switched to Bactrim DS po bid for a total of 7 days. Systemic Inflammatory Response Syndrome -Improving, afebrile -HR > 90 /min at admission. Still tachy RR > 20 on admission, was 26/min, now improving and WNL -CBC showed WBC :13.4 at admission, improving, and now WNL :10.1 Thrombocytopenia Resolved, this morning Platelet count 155 Acute (>300 and now <100) with mild anemia, unknown etiology at this time. Medication list provided by reviewed and unlikely 2/2 to current medications , possibly 2/2 dialysis? there are reports of acute drops due to dialyzer membrane. -Continue monitoring DVT prophylaxis -SCDs -Resolved thrombocytopenia in two consecutive lab -Started Heparin 5000 units SC BID today -Moderate CKD: GFR 36 HTN (hypertension) Well-controlled, will continue to monitor. No medications on transfer documents for HTN. COPD (chronic obstructive pulmonary disease) Chronic, stable. Again no medications. DMII (diabetes mellitus, type 2) Although a recent A1C-7.0, patient random glucose 87 and no medications listed. - MOD CHO for now - Accu-check ACHS Hypothyroidism -Chronic, asymptomatic - c/w Synthroid - TSH on 07/15/16 was low 0.16 -Consider adjustments Renal insufficiency SHRAVAN on last admission and remains on dialysis 3x/week through Rt port() with Dr Patterson. Will receive dialysis as per Dr Alanis -Patient receives dialysis on Saturday, and Saturday -Nephrology Consult Pancreatic abnormality CT scan this admission reporting stable size and Lipase wnl. (10) Normocytic anemia Likely multifactorial as there are no signs of acute blood loss. Combination of chronic disease, renal failure, but will evaluate for iron/B12 involvement. - Iron w/u - Trend - Treat as indicated by w/u
--- NOTE | 2016-07-17 13:38 | CP.PCM.CON ---
History of Present Illness - History of Present Illness History of Present Illness: Pt consulted for UTI. Denies any dysuria, c/o nausea and vomiting. Past Patient History - Past Medical History & Family History Past Medical History?: Yes - Past Social History Smoking Status: Never Smoked - CARDIAC Hx Cardiac Disorders: Yes - PULMONARY Hx Respiratory Disorders: Yes - NEUROLOGICAL Hx Neurological Disorder: Yes - HEENT Hx HEENT Problems: No - RENAL Hx Chronic Kidney Disease: Yes - ENDOCRINE/METABOLIC Hx Endocrine Disorders: Yes - HEMATOLOGICAL/ONCOLOGICAL Hx Human Immunodeficiency Virus (HIV): No - INTEGUMENTARY Hx Dermatological Problems: No - MUSCULOSKELETAL/RHEUMATOLOGICAL Hx Musculoskeletal Disorders: Yes - GASTROINTESTINAL Hx Gastrointestinal Disorders: No - GENITOURINARY/GYNECOLOGICAL Hx Genitourinary Disorders: Yes - PSYCHIATRIC Hx Psychophysiologic Disorder: Yes - SURGICAL HISTORY Hx Cholecystectomy: Yes - ANESTHESIA Hx Anesthesia: Yes Hx Anesthesia Reactions: No Hx Malignant Hyperthermia: No Meds Allergies/Adverse Reactions: Allergies Allergy/AdvReac Type Severity Reaction Status Date / Time ambien AdvReac Severe HEADACHE Uncoded 05/11/16 17:37 - Medications Medications: Current Medications Alprazolam (Xanax) 0.25 mg PO [facility] Stop: 07/21/16 22:01 Last Admin: 07/16/16 22:00 Dose: 0.25 mg Guaifenesin/Dextromethorphan (Robitussin Dm) 5 ml PO Q8H PRN PRN Reason: Cough Last Admin: 07/15/16 08:54 Dose: 5 ml Heparin Sodium (Porcine) (Heparin) 5,000 units SC Q12 [facility] PRN Reason: Protocol Last Admin: 07/17/16 08:55 Dose: 5,000 units Home Med (Nut.Tx.Gluc.Intoler,Lac-Fr,Soy [Glucerna]) 237 ml PO BID [facility] Last Admin: 07/17/16 09:46 Dose: Not Given Ceftriaxone Sodium 1 gm/ (Sodium Chloride) 100 mls @ 100 mls/hr IVPB DAILY [facility] Last Admin: 07/17/16 08:56 Dose: 100 mls/hr Pantoprazole Sodium (Protonix Ec Tab) 40 mg PO DAILY [facility] Last Admin: 07/17/16 08:57 Dose: 40 mg Vitamin B Complex/Vit C/Folic Acid (Nephro-Berkley) 1 tab PO DAILY [facility] Last Admin: 07/17/16 08:57 Dose: 1 tab Results - Vital Signs Recent Vital Signs: Last Vital Signs Temp 99.2 F 07/17/16 08:03 Pulse 102 H 07/17/16 08:03 Resp 20 07/17/16 08:03 BP 106/67 07/17/16 08:03 Pulse Ox 89 L 07/17/16 08:03 - Labs Result Diagrams: 07/16/16 05:47 07/16/16 Unknown Labs: Laboratory Results - last 24 hr 07/16/16 07/16/16 07/16/16 15:37 21:52 Unknown Creatinine 1.4 H POC Glucose (mg/dL) 121 H 107 Urine Collection Time 24 Urine Total Volume 225 Creatinine Clearance 24.0 L 07/16/16 07/17/16 Unknown 05:59 Creatinine POC Glucose (mg/dL) 84 Urine Collection Time 24 Urine Total Volume 225 Creatinine Clearance Assessment & Plan - Assessment and Plan (Free Text) Assessment: UTI with Klebsiella res. to Ampicillin, sens to all others. Pt can be switched to Bactrim DS po bid for a total of 7 days.
--- NOTE | 2016-07-17 15:04 | PQF GENQUE ---
Dr. Harry, Please clarify the stage of the chronic kidney disease: Stage 1 Stage 2 (mild) Stage 3 (moderate) Stage 4 (severe) Stage 5 Other (please specify) OR: Unable to determine OR: Unknown ER note: previous medical history of end stage renal disease;Patient is currently scheduled for dialysis every Saturday, and Saturday. H and P: Renal insufficiency; SHARVAN on last admission and remains on dialysis 3x/ week through Rt port(); Will receive dialysis this evening 07/14 Renal note: Chronic renal failure, end-stage renal disease ;We will continue HD treatments while here 07/16 progress note attending; today : -Moderate CKD: GFR 36 07/17 Renal note; Assessment: SHRAVAN ON HD .. D/C FURTHER HD BUN:13->15->17->20 Creatinine:1.8->1.8->1.7->1.4 Est GFR(Af Amer/Non-Af Amer): 33/27->33/27->35/29->44/36 This form is a permanent part of the medical record Clarification of your documentation is requested to better reflect the severity of illness and intensity of treatment of your patient. Indicators present [] Specify: [] [] Specify: [] [] Specify: [] [] Specify: [] Location in the medical record that reflects the above clinical findings: [] Treatment Provided: [] PHYSICIAN'S RESPONSE Based on your medical judgment of the clinical indicators outlined above please clarify the following: [] Practitioner response [] If unable to determine, please check the box, sign and date. Present On Admission (POA) Indicator: [] Present at the time of admission [] Not present at the time of admission [] Clinically Undetermined In responding to this query, please exercise your independent professional judgment. The fact that a question is asked does not imply that any particular answer is desired or expected. Thank you for your clarification on this documentation. If you have any questions please call. * Thank you, Ginny Wise RN BSN ext. #[phone] MTDD
--- NOTE | 2016-07-17 21:57 | CP.PCM.PN ---
Subjective - Date & Time of Evaluation Date of Evaluation: 07/17/16 Time of Evaluation: 14:00 - Subjective Subjective: SEEN ON RENAL F/U BUN/ CREAT R RUNNING LOW 24 H URINE CREAT CLEARANCE CAME BACK 24 ML / M WILL STOP HD AND OBSERVE CLOSELY .. PT RECOVERED SOME OF HER RENAL FUNCTION ALSO WILL REMOVE THE [place] CATH AND THE HD CATH Objective - Vital Signs/Intake and Output Vital Signs (last 24 hours): Temp Pulse Resp BP Pulse Ox 98.2 F 99 H 20 115/67 98 07/17/16 16:55 07/17/16 16:55 07/17/16 16:55 07/17/16 16:55 07/17/16 16:55 - Medications Medications: Current Medications Alprazolam (Xanax) 0.25 mg PO HS [facility] Stop: 07/21/16 22:01 Last Admin: 07/17/16 21:08 Dose: 0.25 mg Guaifenesin/Dextromethorphan (Robitussin Dm) 5 ml PO Q8H PRN PRN Reason: Cough Last Admin: 07/15/16 08:54 Dose: 5 ml Heparin Sodium (Porcine) (Heparin) 5,000 units SC Q12 [facility] PRN Reason: Protocol Last Admin: 07/17/16 21:08 Dose: 5,000 units Home Med (Nut.Tx.Gluc.Intoler,Lac-Fr,Soy [Glucerna]) 237 ml PO BID [facility] Last Admin: 07/17/16 20:05 Dose: Not Given Ceftriaxone Sodium 1 gm/ (Sodium Chloride) 100 mls @ 100 mls/hr IVPB DAILY [facility] Last Admin: 07/17/16 08:56 Dose: 100 mls/hr Pantoprazole Sodium (Protonix Ec Tab) 40 mg PO DAILY [facility] Last Admin: 07/17/16 08:57 Dose: 40 mg Vitamin B Complex/Vit C/Folic Acid (Nephro-Berkley) 1 tab PO DAILY [facility] Last Admin: 07/17/16 08:57 Dose: 1 tab - Labs Labs: 07/16/16 05:47 07/16/16 Unknown PT 11.2 SECONDS (9.6-11.2) 07/14/16 13:40 INR 1.08 (0.92-1.08) 07/14/16 13:40 APTT 26.0 SECONDS (23.3-32.5) 07/14/16 13:40 Assessment and Plan - Assessment and Plan (Free Text) Assessment: RENAL FUNCTION MUCH IMPROVED .. D/C FURTHER HD MAY D/C [place] MAY D/C HD CATH C/O IVAB FOR UTI
[2016-07-18 07:14] LABS: HEMATOCRIT 35.2 % (34.0-47.0); MEAN CELL VOLUME 87.7 fl (81.0-99.0); MEAN CORPUSCULAR HEMOGLOBIN 27.7 pg (27.0-31.0); MEAN CORPUSCULAR HGB CONC 31.6 g/dL (33.0-37.0); RED CELL DISTRIBUTION WIDTH 21.5 % (11.5-14.5)
[2016-07-18 07:39] LABS: CALCIUM 8.4 mg/dL (8.4-10.2); POTASSIUM 3.7 MMOL/L (3.6-5.0)
--- NOTE | 2016-07-18 08:55 | CP.PCM.PN ---
Subjective - Date & Time of Evaluation Date of Evaluation: 07/18/16 Time of Evaluation: 08:10 - Subjective Subjective: Patient was seen and examined at bedside. Patient states that she feels weak this morning, and yesterday she was nauseated and vomit two times. Reports poor appetite and she wants to go home. Denies chest pain, SOB, abdominal pain, dizziness. Objective - Vital Signs/Intake and Output Vital Signs (last 24 hours): Temp Pulse Resp BP Pulse Ox 98.4 F 105 H 20 103/67 97 07/18/16 07:59 07/18/16 07:59 07/18/16 07:59 07/18/16 07:59 07/18/16 07:59 - Medications Medications: Current Medications Alprazolam (Xanax) 0.25 mg PO HS [facility] Stop: 07/21/16 22:01 Last Admin: 07/17/16 21:08 Dose: 0.25 mg Guaifenesin/Dextromethorphan (Robitussin Dm) 5 ml PO Q8H PRN PRN Reason: Cough Last Admin: 07/15/16 08:54 Dose: 5 ml Heparin Sodium (Porcine) (Heparin) 5,000 units SC Q12 [facility] PRN Reason: Protocol Last Admin: 07/17/16 21:08 Dose: 5,000 units Home Med (Nut.Tx.Gluc.Intoler,Lac-Fr,Soy [Glucerna]) 237 ml PO BID [facility] Last Admin: 07/17/16 20:05 Dose: Not Given Ceftriaxone Sodium 1 gm/ (Sodium Chloride) 100 mls @ 100 mls/hr IVPB DAILY [facility] Last Admin: 07/17/16 08:56 Dose: 100 mls/hr Pantoprazole Sodium (Protonix Ec Tab) 40 mg PO DAILY [facility] Last Admin: 07/17/16 08:57 Dose: 40 mg Vitamin B Complex/Vit C/Folic Acid (Nephro-Berkley) 1 tab PO DAILY [facility] Last Admin: 07/17/16 08:57 Dose: 1 tab - Labs Labs: 07/18/16 06:15 07/18/16 06:15 PT 11.2 SECONDS (9.6-11.2) 07/14/16 13:40 INR 1.08 (0.92-1.08) 07/14/16 13:40 APTT 26.0 SECONDS (23.3-32.5) 07/14/16 13:40 - Constitutional Appears: Non-toxic, No Acute Distress - ENT Exam ENT Exam: Mucous Membranes Moist - Respiratory Exam Respiratory Exam: NORMAL BREATHING PATTERN - Cardiovascular Exam Cardiovascular Exam: Tachycardia, REGULAR RHYTHM, +S1, +S2 - GI/Abdominal Exam GI & Abdominal Exam: Soft, Normal Bowel Sounds. absent: Distended, Tenderness Additional comments: Protuberant - Extremities Exam Extremities Exam: absent: Calf Tenderness Additional comments: Mild right leg edema pitting 1+. No calf tenderness. Lauren's sign negative bilateral. - Neurological Exam Neurological Exam: Alert, Awake - Skin Skin Exam: Dry, Intact, Pallor Assessment and Plan - Assessment and Plan (Free Text) Assessment: 80 F with pmhx of COPD (oxygen dependent), Diabetes, HTN, pancreatic mass, Arthritis, Anxiety, Dialysis (//Sat), Hypothyroid brought in from [facility] where she was being treated for continued renal failure c/o nausea admitted for complicated UTI. Plan: UTI (urinary tract infection), bacterial Likely contributed to nausea/lack of appetite. - c/w Rocephin 1g, IV, Daily renal dose - UCx: gram negative >100,000/ POsitive for Klebsiella Pneumoniae Ssp -ID consulted appreciated. Pt can be switched to Bactrim DS po bid for a total of 7 days. Systemic Inflammatory Response Syndrome -Improving, afebrile -HR > 90 /min at admission. But still tachy RR > 20 on admission, was 26/min, now improving and WNL -CBC showed WBC :13.4 at admission -IV hydration at 70 ml/hr Thrombocytopenia Stop Heparin on 07/18/16 because drop on platelet count from 155 to 56 -F/U repeat CBC Acute (>300 and now <100) with mild anemia, unknown etiology at this time. Medication list provided by reviewed and unlikely 2/2 to current medications , possibly 2/2 dialysis? there are reports of acute drops due to dialyzer membrane. -Continue monitoring Leukocytosis WBC today 15.0 F/U repeat CBC F/U C-diff toxin DVT prophylaxis -SCDs for now -Stop Heparin on 07/18/16 because drop on platelet count from 155 to 56 -Moderate CKD: GFR 36 HTN (hypertension) Well-controlled, will continue to monitor. No medications on transfer documents for HTN. COPD (chronic obstructive pulmonary disease) Chronic, stable. Again no medications. DMII (diabetes mellitus, type 2) Although a recent A1C-7.0, patient random glucose 87 and no medications listed. - MOD CHO for now - Accu-check ACHS Hypothyroidism -Chronic, asymptomatic - c/w Synthroid - TSH on 07/15/16 was low 0.16 -Consider adjustments Renal insufficiency -Nephrology Consult appreciated . Dr Patterson on board. -Creatinine Clearance was 24.Meaning that kidney function improved 24 % -Nephro recommendations are to discontinue further dialysis. Discontinue dialysis catheter -IR consult appreciated for HD cath removal -C/W antibiotic for UTI Pancreatic abnormality CT scan this admission reporting stable size and Lipase wnl. 10) Normocytic anemia Likely multifactorial as there are no signs of acute blood loss. Combination of chronic disease, renal failure, but will evaluate for iron/B12 involvement. - Iron w/u - Trend - Treat as indicated by w/u
[2016-07-18] MEDS: Multivitamin Vitamin B Complex (Nephro-Vite) Tab PO SCH (09:21)
[2016-07-18] MEDS: Pantoprazole 40 mg EC Tab PO SCH (09:21)
[2016-07-18] MEDS: NUT TX GLUC INTOLER LAC FR SOY PO SCH ×2 (09:21→16:51)
[2016-07-18 11:30] LABS: HEMATOCRIT 36.4 % (34.0-47.0); MEAN CELL VOLUME 87.1 fl (81.0-99.0); MEAN CORPUSCULAR HEMOGLOBIN 27.7 pg (27.0-31.0); MEAN CORPUSCULAR HGB CONC 31.8 g/dL (33.0-37.0); RED CELL DISTRIBUTION WIDTH 21.7 % (11.5-14.5); WHITE BLOOD COUNT 18.9 K/uL (4.8-10.8)
[2016-07-18 13:53] LABS: HEMATOCRIT 38.8 % (34.0-47.0); MEAN CORPUSCULAR HEMOGLOBIN 27.2 pg (27.0-31.0); MEAN CORPUSCULAR HGB CONC 30.9 g/dL (33.0-37.0); RED CELL DISTRIBUTION WIDTH 22.1 % (11.5-14.5); WHITE BLOOD COUNT 18.4 K/uL (4.8-10.8)
[2016-07-18] MEDS: Sodium Chloride 0.9% 1,000 ML IV SCH (16:53)
--- NOTE | 2016-07-18 23:46 | CP.PCM.PN ---
Subjective - Date & Time of Evaluation Date of Evaluation: 07/18/16 Time of Evaluation: 13:00 - Subjective Subjective: SEEN ON RENAL F/U PT IS OFF HD .. YET HER CREATININ IMPROVED FROM 1.4 TO 1.3 .. SPEAKING THAT THE RENAL FUNCTION IS IMPROVING PT FEELS AND LOOKS MUCH BETTER DAUGHTERS ARE VERY HAPPY THAT MOM IS OFF HD AND RENAL FUNCTION BETTER P : FOLY WAS D/C HD CATH WILL BE REMOVED C/O ANTIBIOTICS PER ID RECOMMENDATIONS CASE D/W DR BARBER Objective - Vital Signs/Intake and Output Vital Signs (last 24 hours): Temp Pulse Resp BP Pulse Ox 98.0 F 112 H 20 110/66 99 07/18/16 16:44 07/18/16 16:44 07/18/16 16:44 07/18/16 16:44 07/18/16 16:44 - Medications Medications: Current Medications Alprazolam (Xanax) 0.25 mg PO HS [facility] Stop: 07/21/16 22:01 Last Admin: 07/18/16 21:14 Dose: 0.25 mg Guaifenesin/Dextromethorphan (Robitussin Dm) 5 ml PO Q8H PRN PRN Reason: Cough Last Admin: 07/15/16 08:54 Dose: 5 ml Home Med (Nut.Tx.Gluc.Intoler,Lac-Fr,Soy [Glucerna]) 237 ml PO BID [facility] Last Admin: 07/18/16 16:51 Dose: Not Given Ceftriaxone Sodium 1 gm/ (Sodium Chloride) 100 mls @ 100 mls/hr IVPB DAILY [facility] Last Admin: 07/18/16 09:22 Dose: 100 mls/hr Sodium Chloride (Sodium Chloride 0.9%) 1,000 mls @ 70 mls/hr IV .[id number] [facility] Stop: 07/19/16 10:07 Last Admin: 07/18/16 16:53 Dose: 70 mls/hr Pantoprazole Sodium (Protonix Ec Tab) 40 mg PO DAILY [facility] Last Admin: 07/18/16 09:21 Dose: 40 mg Vitamin B Complex/Vit C/Folic Acid (Nephro-Berkley) 1 tab PO DAILY [facility] Last Admin: 07/18/16 09:21 Dose: 1 tab - Labs Labs: 07/18/16 13:25 07/18/16 06:15 PT 11.2 SECONDS (9.6-11.2) 07/14/16 13:40 INR 1.08 (0.92-1.08) 07/14/16 13:40 APTT 26.0 SECONDS (23.3-32.5) 07/14/16 13:40
[2016-07-19] MEDS ORDERED: guaiFENesin DM 100 mg-10 mg/5 ml UD ONE (09:00)
[2016-07-19] MEDS ORDERED: cefTRIAXone (Rocephin) 1 gm Inj ONE (09:00)
[2016-07-19] MEDS ORDERED: Multivitamin Vitamin B Complex (Nephro-Vite) Tab ONE (09:00)
[2016-07-19] MEDS ORDERED: Pantoprazole 40 mg EC Tab PO ONE (09:00)
[2016-07-19] MEDS ORDERED: Albuterol 0.042% Inhal Sol (1.25 mg/3 mL) UD ONE (18:47)
[2016-07-19] MEDS: Sodium Chloride 0.9% 1,000 ML IV SCH (21:05)
[2016-07-20] MEDS: guaiFENesin DM 100 mg-10 mg/5 ml UD PO PRN ×2 (01:47→22:33)
--- NOTE | 2016-07-20 07:38 | PQF GENQUE ---
Dr. Alvin Villanueva, Please clarify the stage of the chronic kidney disease: Stage 1 Stage 2 (mild) Stage 3 (moderate) Stage 4 (severe) Stage 5 Other (please specify) OR:Unable to determine OR:Unknown ER note: previous medical history of end stage renal disease;Patient is currently scheduled for dialysis every Saturday, and Saturday. H and P: Renal insufficiency; SHRAVAN on last admission and remains on dialysis 3x/ week through [facility] port(); Will receive dialysis this evening 07/14 Renal note: Chronic renal failure, end-stage renal disease ;We will continue HD treatments while here 07/16 progress note attending; today : -Moderate CKD: GFR 36 07/17 Renal note; Assessment: SHRAVAN ON HD .. D/C FURTHER HD BUN:13->15->17->20 Creatinine:1.8->1.8->1.7->1.4 Est GFR(Af Amer/Non-Af Amer): 33/27->33/27->35/29->44/3 This form is a permanent part of the medical record Clarification of your documentation is requested to better reflect the severity of illness and intensity of treatment of your patient. Indicators present [] Specify: [] [] Specify: [] [] Specify: [] [] Specify: [] Location in the medical record that reflects the above clinical findings: [] Treatment Provided: [] PHYSICIAN'S RESPONSE Based on your medical judgment of the clinical indicators outlined above please clarify the following: [] Practitioner response [] If unable to determine, please check the box, sign and date. Present On Admission (POA) Indicator: [] Present at the time of admission [] Not present at the time of admission [] Clinically Undetermined In responding to this query, please exercise your independent professional judgment. The fact that a question is asked does not imply that any particular answer is desired or expected. Thank you for your clarification on this documentation. If you have any questions please call. * Thank you, Ginny Wise RN BSN ext. #[phone] MTDD
[2016-07-20] MEDS: Multivitamin Vitamin B Complex (Nephro-Vite) Tab PO SCH (09:10)
[2016-07-20] MEDS: Pantoprazole 40 mg EC Tab PO SCH (09:24)
[2016-07-20] MEDS: NUT TX GLUC INTOLER LAC FR SOY PO SCH ×2 (09:27→17:35)
--- NOTE | 2016-07-20 10:26 | CP.PCM.PCO ---
Assessment/Plan - Assessment and Plan (Free Text) Assessment: Spoke with Daughter this am via phone She admits to having a lot of anxiety about her mother. She believes the "spitting up" is her mom's anxiety and is asking about restarting Paxil. Also she believes her mother need a knee injection but will get back to me. She is agreeable to [facility] as well as TCU SW notified
[2016-07-20 12:48] LABS: HEMATOCRIT 32.9 % (34.0-47.0); MEAN CELL VOLUME 87.3 fl (81.0-99.0); MEAN CORPUSCULAR HEMOGLOBIN 27.3 pg (27.0-31.0); MEAN CORPUSCULAR HGB CONC 31.2 g/dL (33.0-37.0); RED CELL DISTRIBUTION WIDTH 20.9 % (11.5-14.5); WHITE BLOOD COUNT 18.4 K/uL (4.8-10.8)
[2016-07-20 13:04] LABS: BILIRUBIN,TOTAL 0.3 mg/dl (0.2-1.3); POTASSIUM 4.1 MMOL/L (3.6-5.0); TOTAL PROTEIN 5.5 G/DL (6.3-8.2)
[2016-07-20 13:06] LABS: ALB/GLOB RATIO 0.8 (1.0-2.1)
[2016-07-20] MEDS ORDERED: Lidocaine 1% Inj (20ml) ONE (14:23)
--- NOTE | 2016-07-20 14:43 | PCM.SURG1 ---
Surgeon's Initial Post Op Note - Surgeon's Notes Surgeon: Angel Coelho MD Director Of Staff Development: NONE Type of Anesthesia: Local Pre-Operative Diagnosis: Resolved renal failure Operative Findings: Right tunneled HD catheter via IJV Post-Operative Diagnosis: Resolved renal failure Operation Performed: Right tunneled HD catheter removal. Specimen/Specimens Removed: HD catheter Estimated Blood Loss: EBL {In ML}: 2 Blood Products Given: N/A Drains Used: No Drains Post-Op Condition: Fair Date of Surgery/Procedure: 07/20/16 Time of Surgery/Procedure: 14:40
--- NOTE | 2016-07-20 14:59 | CP.PCM.PN ---
<Lorna Benavides - Last Filed: 07/20/16 22:09> Subjective - Date & Time of Evaluation Date of Evaluation: 07/20/16 Time of Evaluation: 08:00 - Subjective Subjective: Patient was seen and examined at bedside this morning. Patient is complaining of nausea, but denies vomiting. Reports poor appetite today. Had a normal bowel movement yesterday. Voiding without complains. Objective - Vital Signs/Intake and Output Vital Signs (last 24 hours): Temp Pulse Resp BP Pulse Ox 98.9 F 100 H 20 126/74 95 07/20/16 14:28 07/20/16 14:28 07/20/16 14:42 07/20/16 14:42 07/20/16 14:28 - Medications Medications: Current Medications Alprazolam (Xanax) 0.25 mg PO HS [facility] Stop: 07/21/16 22:01 Last Admin: 07/19/16 21:01 Dose: 0.25 mg Guaifenesin/Dextromethorphan (Robitussin Dm) 5 ml PO Q8H PRN PRN Reason: Cough Last Admin: 07/20/16 01:47 Dose: 5 ml Home Med (Nut.Tx.Gluc.Intoler,Lac-Fr,Soy [Glucerna]) 237 ml PO BID [facility] Last Admin: 07/20/16 09:27 Dose: 237 ml Vancomycin HCl 1 gm/ Sodium (Chloride) 250 mls @ 166.667 mls/hr IVPB DAILY [facility] Ondansetron HCl (Zofran Inj) 4 mg IVP Q6 PRN PRN Reason: Nausea/Vomiting Last Admin: 07/20/16 09:17 Dose: 4 mg Pantoprazole Sodium (Protonix Ec Tab) 40 mg PO DAILY [facility] Last Admin: 07/20/16 09:24 Dose: 40 mg Vitamin B Complex/Vit C/Folic Acid (Nephro-Berkley) 1 tab PO DAILY [facility] Last Admin: 07/20/16 09:10 Dose: 1 tab - Labs Labs: 07/20/16 12:35 07/20/16 12:35 PT 11.2 SECONDS (9.6-11.2) 07/14/16 13:40 INR 1.08 (0.92-1.08) 07/14/16 13:40 APTT 26.0 SECONDS (23.3-32.5) 07/14/16 13:40 - Constitutional Appears: Non-toxic, No Acute Distress - ENT Exam ENT Exam: Mucous Membranes Moist - Respiratory Exam Respiratory Exam: Clear to Ausculation Bilateral, NORMAL BREATHING PATTERN - Cardiovascular Exam Cardiovascular Exam: REGULAR RHYTHM, +S1, +S2 - GI/Abdominal Exam GI & Abdominal Exam: Soft, Normal Bowel Sounds. absent: Guarding, Rigid, Tenderness - Extremities Exam Extremities Exam: Pedal Edema. absent: Calf Tenderness - Neurological Exam Neurological Exam: Alert, Awake, Oriented x3 - Skin Skin Exam: Dry, Intact, Pallor Assessment and Plan - Assessment and Plan (Free Text) Assessment: 80 F with pmhx of COPD (oxygen dependent), Diabetes, HTN, pancreatic mass, Arthritis, Anxiety, Dialysis (//Sat), Hypothyroid brought in from [facility] where she was being treated for continued renal failure c/o nausea admitted for complicated UTI now with persistent leukocytosis. Plan: UTI (urinary tract infection), bacterial -Persistent leukocytosis - c/w Rocephin 1g, IV, Daily renal dose -Start Vancomycin 1 g IV daily - UCx: gram negative >100,000/ POsitive for Klebsiella Pneumoniae Ssp -ID consulted appreciated. - d/c permacath. -f/u wbc in morning, if decreasing, then can discharge patient. -Repeat blood cultures and follow up Systemic Inflammatory Response Syndrome -Improving, afebrile -HR > 90 /min at admission. But still tachy RR > 20 on admission, was 26/min, now improving and WNL -CBC showed WBC :13.4 at admission -IV hydration at 70 ml/hr Thrombocytopenia resolved Stop Heparin on 07/18/16 because drop in platelets -today platelets 137 Acute (>300 and now <100) with mild anemia, unknown etiology at this time. Medication list provided by reviewed and unlikely 2/2 to current medications , possibly 2/2 dialysis? there are reports of acute drops due to dialyzer membrane. -Continue monitoring Leukocytosis Persistent leukocytosis -Start Vancomycin 1 g IV daily d/c permacath. F/U C-diff toxin DVT prophylaxis -SCDs for now -Stop Heparin on 07/18/16 because drop in platelets -Moderate CKD: GFR 36 HTN (hypertension) Well-controlled, will continue to monitor. No medications on transfer documents for HTN. COPD (chronic obstructive pulmonary disease) Chronic, stable. Again no medications. DMII (diabetes mellitus, type 2) Although a recent A1C-7.0, patient random glucose 87 and no medications listed. - MOD CHO for now - Accu-check ACHS Hypothyroidism -Chronic, asymptomatic - c/w Synthroid - TSH on 07/15/16 was low 0.16 -Consider adjustments Renal insufficiency -Nephrology Consult appreciated . Dr Patterson on board. -Creatinine Clearance was 24.Meaning that kidney function improved 24 % -Nephro recommendations are to discontinue further dialysis. Discontinue dialysis catheter -IR consult appreciated for HD cath removal -C/W antibiotic for UTI Pancreatic abnormality CT scan this admission reporting stable size and Lipase wnl. 10) Normocytic anemia Likely multifactorial as there are no signs of acute blood loss. Combination of chronic disease, renal failure, but will evaluate for iron/B12 involvement. - Iron w/u - Trend - Treat as indicated by w/u <Ewa Boyd - Last Filed: 07/21/16 09:12> Objective - Vital Signs/Intake and Output Vital Signs (last 24 hours): Temp Pulse Resp BP Pulse Ox 97.7 F 62 18 108/68 95 07/21/16 08:30 07/21/16 08:30 07/21/16 08:30 07/21/16 08:30 07/21/16 08:30 - Medications Medications: Current Medications Alprazolam (Xanax) 0.25 mg PO HS [facility] Stop: 07/21/16 22:01 Last Admin: 07/20/16 22:25 Dose: 0.25 mg Guaifenesin/Dextromethorphan (Robitussin Dm) 5 ml PO Q8H PRN PRN Reason: Cough Last Admin: 07/20/16 22:33 Dose: 5 ml Home Med (Nut.Tx.Gluc.Intoler,Lac-Fr,Soy [Glucerna]) 237 ml PO BID [facility] Last Admin: 07/20/16 17:35 Dose: Not Given Vancomycin HCl 1 gm/ Sodium (Chloride) 250 mls @ 166.667 mls/hr IVPB DAILY [facility] Last Admin: 07/20/16 17:40 Dose: 166.667 mls/hr Ondansetron HCl (Zofran Inj) 4 mg IVP Q6 PRN PRN Reason: Nausea/Vomiting Last Admin: 07/20/16 09:17 Dose: 4 mg Pantoprazole Sodium (Protonix Ec Tab) 40 mg PO DAILY [facility] Last Admin: 07/20/16 09:24 Dose: 40 mg Vitamin B Complex/Vit C/Folic Acid (Nephro-Berkley) 1 tab PO DAILY [facility] Last Admin: 07/20/16 09:10 Dose: 1 tab - Labs Labs: 07/21/16 05:30 07/20/16 12:35 PT 11.2 SECONDS (9.6-11.2) 07/14/16 13:40 INR 1.08 (0.92-1.08) 07/14/16 13:40 APTT 26.0 SECONDS (23.3-32.5) 07/14/16 13:40 Assessment and Plan - Assessment and Plan (Free Text) Assessment: ATTENDING NOTE/ATTESTATION Patient seen and examined> CAse discussed with resident and ID product safety consultant. Patient improving clinically. WBC remains elevated. Renal function improved - roofing technician reports will not need hemodiaylsis. Port will be removed today. Continue present antibiotic treatment for UTI. Re CBC in AM 07/21/16. Blood c/s sent. Agree with plan.
--- NOTE | 2016-07-20 16:04 | CP.PCM.CON ---
History of Present Illness - History of Present Illness History of Present Illness: c/o nausea Past Patient History - Past Medical History & Family History Past Medical History?: Yes - Past Social History Smoking Status: Never Smoked - CARDIAC Hx Cardiac Disorders: Yes - PULMONARY Hx Respiratory Disorders: Yes - NEUROLOGICAL Hx Neurological Disorder: Yes - HEENT Hx HEENT Problems: No - RENAL Hx Chronic Kidney Disease: Yes - ENDOCRINE/METABOLIC Hx Endocrine Disorders: Yes - HEMATOLOGICAL/ONCOLOGICAL Hx Human Immunodeficiency Virus (HIV): No - INTEGUMENTARY Hx Dermatological Problems: No - MUSCULOSKELETAL/RHEUMATOLOGICAL Hx Musculoskeletal Disorders: Yes - GASTROINTESTINAL Hx Gastrointestinal Disorders: No - GENITOURINARY/GYNECOLOGICAL Hx Genitourinary Disorders: Yes - PSYCHIATRIC Hx Psychophysiologic Disorder: Yes - SURGICAL HISTORY Hx Cholecystectomy: Yes - ANESTHESIA Hx Anesthesia: Yes Hx Anesthesia Reactions: No Hx Malignant Hyperthermia: No Meds Allergies/Adverse Reactions: Allergies Allergy/AdvReac Type Severity Reaction Status Date / Time ambien AdvReac Severe HEADACHE Uncoded 05/11/16 17:37 - Medications Medications: Current Medications Alprazolam (Xanax) 0.25 mg PO HS [facility] Stop: 07/21/16 22:01 Last Admin: 07/19/16 21:01 Dose: 0.25 mg Guaifenesin/Dextromethorphan (Robitussin Dm) 5 ml PO Q8H PRN PRN Reason: Cough Last Admin: 07/20/16 01:47 Dose: 5 ml Home Med (Nut.Tx.Gluc.Intoler,Lac-Fr,Soy [Glucerna]) 237 ml PO BID [facility] Last Admin: 07/20/16 09:27 Dose: 237 ml Vancomycin HCl 1 gm/ Sodium (Chloride) 250 mls @ 166.667 mls/hr IVPB DAILY [facility] Ondansetron HCl (Zofran Inj) 4 mg IVP Q6 PRN PRN Reason: Nausea/Vomiting Last Admin: 07/20/16 09:17 Dose: 4 mg Pantoprazole Sodium (Protonix Ec Tab) 40 mg PO DAILY [facility] Last Admin: 07/20/16 09:24 Dose: 40 mg Vitamin B Complex/Vit C/Folic Acid (Nephro-Berkley) 1 tab PO DAILY [facility] Last Admin: 07/20/16 09:10 Dose: 1 tab Results - Vital Signs Recent Vital Signs: Last Vital Signs Temp 98.9 F 07/20/16 14:28 Pulse 100 H 05/19/17 14:28 Resp 20 07/20/16 14:42 BP 126/74 07/20/16 14:42 Pulse Ox 95 07/20/16 14:28 - Labs Result Diagrams: 07/20/16 12:35 07/20/16 12:35 Labs: Laboratory Results - last 24 hr 07/20/16 07/20/16 12:35 12:35 WBC 18.4 H RBC 3.76 L Hgb 10.3 L Hct 32.9 L MCV 87.3 MCH 27.3 MCHC 31.2 L RDW 20.9 H Plt Count 137 Sodium 136 Potassium 4.1 Chloride 102 Carbon Dioxide 23 Anion Gap 15 BUN 26 H Creatinine 1.2 Est GFR ( Amer) 52 Est GFR (Non-Af Amer) 43 Random Glucose 105 Calcium 8.0 L Total Bilirubin 0.3 AST 18 ALT 19 Alkaline Phosphatase 121 Total Protein 5.5 L Albumin 2.4 L Globulin 3.2 Albumin/Globulin Ratio 0.8 L Assessment & Plan - Assessment and Plan (Free Text) Assessment: complicated UTI with leukocytosis, clinically looks better. Continue Rocephin and Vancomycin. d/c permacath. f/u wbc in morning, if decreasing, then can discharge patient. Repeat blood cultures and follow up
--- NOTE | 2016-07-20 20:17 | CP.PCM.PN ---
Subjective - Date & Time of Evaluation Date of Evaluation: 07/20/16 Time of Evaluation: 15:00 - Subjective Subjective: SEEN ON RENAL F/U S/P HD CATH REMOVAL BY IR RENAL FUNCTION C/O TO IMPROVE CREAT 1.4 -> 1.3 -> 1.2 TODAY D/W THE SON ABOUT THE RENAL FUNCTION Objective - Vital Signs/Intake and Output Vital Signs (last 24 hours): Temp Pulse Resp BP Pulse Ox 98 F 110 H 20 109/72 98 07/20/16 17:11 07/20/16 17:11 07/20/16 17:11 07/20/16 17:11 07/20/16 17:11 - Medications Medications: Current Medications Alprazolam (Xanax) 0.25 mg PO HS [facility] Stop: 07/21/16 22:01 Last Admin: 07/19/16 21:01 Dose: 0.25 mg Guaifenesin/Dextromethorphan (Robitussin Dm) 5 ml PO Q8H PRN PRN Reason: Cough Last Admin: 07/20/16 01:47 Dose: 5 ml Home Med (Nut.Tx.Gluc.Intoler,Lac-Fr,Soy [Glucerna]) 237 ml PO BID [facility] Last Admin: 07/20/16 17:35 Dose: Not Given Vancomycin HCl 1 gm/ Sodium (Chloride) 250 mls @ 166.667 mls/hr IVPB DAILY [facility] Last Admin: 07/20/16 17:40 Dose: 166.667 mls/hr Ondansetron HCl (Zofran Inj) 4 mg IVP Q6 PRN PRN Reason: Nausea/Vomiting Last Admin: 07/20/16 09:17 Dose: 4 mg Pantoprazole Sodium (Protonix Ec Tab) 40 mg PO DAILY [facility] Last Admin: 07/20/16 09:24 Dose: 40 mg Vitamin B Complex/Vit C/Folic Acid (Nephro-Berkley) 1 tab PO DAILY [facility] Last Admin: 07/20/16 09:10 Dose: 1 tab - Labs Labs: 07/20/16 12:35 07/20/16 12:35 PT 11.2 SECONDS (9.6-11.2) 07/14/16 13:40 INR 1.08 (0.92-1.08) 07/14/16 13:40 APTT 26.0 SECONDS (23.3-32.5) 07/14/16 13:40 Assessment and Plan - Assessment and Plan (Free Text) Assessment: ACK -> CKD -> IMPROVED .. NO FURTHER HD C/O CURRENT CARE
[2016-07-20] MEDS: Sodium Chloride 0.9% 1,000 ML IV SCH (22:36)
[2016-07-21 08:18] LABS: BASO # 0.1 K/uL (0.0-0.2); BASO % 0.4 % (0.0-2.0); EOS # 0.1 K/uL (0.0-0.7); EOS % 0.8 % (0.0-4.0); LYMPH # 2.3 K/uL (1.0-4.3); LYMPH % 16.4 % (20.0-40.0); MEAN CELL VOLUME 88.6 fl (81.0-99.0); MEAN CORPUSCULAR HEMOGLOBIN 27.5 pg (27.0-31.0); MEAN PLATELET VOLUME 8.9 fl (7.2-11.7); MONO # 0.9 K/uL (0.0-0.8); MONO % 6.3 % (0.0-10.0); NEUT # 10.6 K/uL (1.8-7.0); NEUT % 76.1 % (50.0-75.0); RED CELL DISTRIBUTION WIDTH 20.4 % (11.5-14.5); WHITE BLOOD COUNT 13.9 K/uL (4.8-10.8)
[2016-07-21 08:30] VITALS: BP 108/68; PULSE 62; RESP 18; TEMP 97.7; O2SAT 95
--- NOTE | 2016-07-21 09:01 | CP.PCM.PN ---
Objective - Vital Signs/Intake and Output Vital Signs (last 24 hours): Temp Pulse Resp BP Pulse Ox 97.7 F 62 18 108/68 95 07/21/16 08:30 07/21/16 08:30 07/21/16 08:30 07/21/16 08:30 07/21/16 08:30 - Medications Medications: Current Medications Alprazolam (Xanax) 0.25 mg PO HS [facility] Stop: 07/21/16 22:01 Last Admin: 07/20/16 22:25 Dose: 0.25 mg Guaifenesin/Dextromethorphan (Robitussin Dm) 5 ml PO Q8H PRN PRN Reason: Cough Last Admin: 07/20/16 22:33 Dose: 5 ml Home Med (Nut.Tx.Gluc.Intoler,Lac-Fr,Soy [Glucerna]) 237 ml PO BID [facility] Last Admin: 07/20/16 17:35 Dose: Not Given Vancomycin HCl 1 gm/ Sodium (Chloride) 250 mls @ 166.667 mls/hr IVPB DAILY [facility] Last Admin: 07/20/16 17:40 Dose: 166.667 mls/hr Ondansetron HCl (Zofran Inj) 4 mg IVP Q6 PRN PRN Reason: Nausea/Vomiting Last Admin: 07/20/16 09:17 Dose: 4 mg Pantoprazole Sodium (Protonix Ec Tab) 40 mg PO DAILY [facility] Last Admin: 07/20/16 09:24 Dose: 40 mg Vitamin B Complex/Vit C/Folic Acid (Nephro-[place]) 1 tab PO DAILY [facility] Last Admin: 07/20/16 09:10 Dose: 1 tab - Labs Labs: 07/21/16 05:30 07/20/16 12:35 PT 11.2 SECONDS (9.6-11.2) 07/14/16 13:40 INR 1.08 (0.92-1.08) 07/14/16 13:40 APTT 26.0 SECONDS (23.3-32.5) 07/14/16 13:40
--- NOTE | 2016-07-21 09:05 | CP.PCM.PN ---
Subjective - Date & Time of Evaluation Date of Evaluation: 07/21/16 Time of Evaluation: 07:10 - Subjective Subjective: Patient reports that she is feeling better this morning. Denies chest pain, SOB , nausea, vomiting, abdominal pain at this evaluation. Patient had a normal bowel movement yesterday. Voiding without complains. Patient had an uneventful night. Objective - Vital Signs/Intake and Output Vital Signs (last 24 hours): Temp Pulse Resp BP Pulse Ox 97.7 F 62 18 108/68 95 07/21/16 08:30 07/21/16 08:30 07/21/16 08:30 07/21/16 08:30 07/21/16 08:30 - Medications Medications: Current Medications Alprazolam (Xanax) 0.25 mg PO HS [facility] Stop: 07/21/16 22:01 Last Admin: 07/20/16 22:25 Dose: 0.25 mg Guaifenesin/Dextromethorphan (Robitussin Dm) 5 ml PO Q8H PRN PRN Reason: Cough Last Admin: 07/20/16 22:33 Dose: 5 ml Home Med (Nut.Tx.Gluc.Intoler,Lac-Fr,Soy [Glucerna]) 237 ml PO BID [facility] Last Admin: 07/20/16 17:35 Dose: Not Given Vancomycin HCl 1 gm/ Sodium (Chloride) 250 mls @ 166.667 mls/hr IVPB DAILY [facility] Last Admin: 07/20/16 17:40 Dose: 166.667 mls/hr Ondansetron HCl (Zofran Inj) 4 mg IVP Q6 PRN PRN Reason: Nausea/Vomiting Last Admin: 07/20/16 09:17 Dose: 4 mg Pantoprazole Sodium (Protonix Ec Tab) 40 mg PO DAILY [facility] Last Admin: 07/20/16 09:24 Dose: 40 mg Vitamin B Complex/Vit C/Folic Acid (Nephro-[place]) 1 tab PO DAILY [facility] Last Admin: 07/20/16 09:10 Dose: 1 tab - Labs Labs: 07/21/16 05:30 07/20/16 12:35 PT 11.2 SECONDS (9.6-11.2) 07/14/16 13:40 INR 1.08 (0.92-1.08) 07/14/16 13:40 APTT 26.0 SECONDS (23.3-32.5) 07/14/16 13:40 - Additional Findings Additional findings: Constitutional Appears: Non-toxic, No Acute Distress - ENT Exam ENT Exam: Mucous Membranes Moist - Respiratory Exam Respiratory Exam: Clear to Ausculation Bilateral, NORMAL BREATHING PATTERN - Cardiovascular Exam Cardiovascular Exam: REGULAR RHYTHM, +S1, +S2 - GI/Abdominal Exam GI & Abdominal Exam: Soft, Normal Bowel Sounds. absent: Guarding, Rigid, Tenderness - Extremities Exam Extremities Exam: Pedal Edema. absent: Calf Tenderness - Neurological Exam Neurological Exam: Alert, Awake, Oriented x3 - Skin Skin Exam: Dry, Intact, Pallor Assessment and Plan - Assessment and Plan (Free Text) Assessment: 80 F with pmhx of COPD (oxygen dependent), Diabetes, HTN, pancreatic mass, Arthritis, Anxiety, Dialysis (//Sat), Hypothyroid brought in from [facility] where she was being treated for continued renal failure c/o nausea admitted for complicated UTI now with persistent leukocytosis, now improving Plan: UTI (urinary tract infection), bacterial -Persistent leukocytosis - c/w Rocephin 1g, IV, Daily renal dose -Start Vancomycin 1 g IV daily - UCx: gram negative >100,000/ POsitive for Klebsiella Pneumoniae Ssp -ID consulted appreciated. -Permacath removed yesterday by IR -WBC:trending down today 13.9 -Repeat blood cultures and follow up Systemic Inflammatory Response Syndrome -Improving, afebrile -HR > 90 /min at admission. But still tachy RR > 20 on admission, was 26/min, now improving and WNL -CBC showed WBC :13.4 at admission -IV hydration at 70 ml/hr Thrombocytopenia resolved Stop Heparin on 07/18/16 because drop in platelets -today platelets 137 Acute (>300 and now <100) with mild anemia, unknown etiology at this time. Medication list provided by reviewed and unlikely 2/2 to current medications , possibly 2/2 dialysis? there are reports of acute drops due to dialyzer membrane. -Continue monitoring Leukocytosis Persistent leukocytosis -Start Vancomycin 1 g IV daily d/c permacath. F/U C-diff toxin DVT prophylaxis -SCDs for now -Stop Heparin on 07/18/16 because drop in platelets -Moderate CKD: GFR 36 HTN (hypertension) Well-controlled, will continue to monitor. No medications on transfer documents for HTN. COPD (chronic obstructive pulmonary disease) Chronic, stable. Again no medications. DMII (diabetes mellitus, type 2) Although a recent A1C-7.0, patient random glucose 87 and no medications listed. - MOD CHO for now - Accu-check ACHS Hypothyroidism -Chronic, asymptomatic - c/w Synthroid - TSH on 07/15/16 was low 0.16 -Consider adjustments Renal insufficiency -Nephrology Consult appreciated . Dr Patterson on board. -Creatinine Clearance was 24.Meaning that kidney function improved 24 % -Nephro recommendations are to discontinue further dialysis. Discontinue dialysis catheter -IR consult appreciated for HD cath removal -C/W antibiotic for UTI Pancreatic abnormality CT scan this admission reporting stable size and Lipase wnl. 10) Normocytic anemia Likely multifactorial as there are no signs of acute blood loss. Combination of chronic disease, renal failure, but will evaluate for iron/B12 involvement. - Iron w/u - Trend - Treat as indicated by w/u
[2016-07-21] MEDS: Multivitamin Vitamin B Complex (Nephro-Vite) Tab PO SCH (09:16)
[2016-07-21] MEDS: Pantoprazole 40 mg EC Tab PO SCH (09:17)
[2016-07-21] MEDS: NUT TX GLUC INTOLER LAC FR SOY PO SCH (09:17)
--- NOTE | 2016-07-21 14:43 | CP.PCM.DIS ---
<Lorna Benavides - Last Filed: 07/21/16 14:29> Provider - Provider Date of Admission: 07/15/16 12:31 Attending physician: Aparna Harry MD Time Spent in preparation of Discharge (in minutes): 30 Diagnosis - Discharge Diagnosis (1) UTI (urinary tract infection), bacterial Status: Acute Priority: High Comment: C/W Vancomycin x 4 days, and Rocephin x 5 days (2) CKD (chronic kidney disease) Status: Chronic Priority: High Comment: Improved. D/C Hemodialysis by Nephrology (3) COPD (chronic obstructive pulmonary disease) Status: Chronic Priority: Medium Comment: in no exacerbation Hospital Course - Lab Results Lab Results: Most Recent Lab Values WBC 13.9 K/uL (4.8-10.8) H 07/21/16 05:30 RBC 3.39 Mil/uL (3.80-5.20) L 07/21/16 05:30 Hgb 9.3 g/dL (12.0-16.0) L 07/21/16 05:30 Hct 30.0 % (34.0-47.0) L 07/21/16 05:30 MCV 88.6 fl (81.0-99.0) 07/21/16 05:30 MCH 27.5 pg (27.0-31.0) 07/21/16 05:30 MCHC 31.0 g/dL (33.0-37.0) L 07/21/16 05:30 RDW 20.4 % (11.5-14.5) H 07/21/16 05:30 Plt Count 122 K/uL (130-400) L 07/21/16 05:30 MPV 8.9 fl (7.2-11.7) 07/21/16 05:30 Neut % (Auto) 76.1 % (50.0-75.0) H 07/21/16 05:30 Lymph % (Auto) 16.4 % (20.0-40.0) L 07/21/16 05:30 [place] % (Auto) 6.3 % (0.0-10.0) 07/21/16 05:30 Eos % (Auto) 0.8 % (0.0-4.0) 07/21/16 05:30 Baso % (Auto) 0.4 % (0.0-2.0) 07/21/16 05:30 Neut # 10.6 K/uL (1.8-7.0) H 07/21/16 05:30 Lymph # 2.3 K/uL (1.0-4.3) 07/21/16 05:30 [place] # 0.9 K/uL (0.0-0.8) H 07/21/16 05:30 Eos # 0.1 K/uL (0.0-0.7) 07/21/16 05:30 Baso # 0.1 K/uL (0.0-0.2) 07/21/16 05:30 Retic Count 2.6 % (0.5-1.5) H 07/15/16 06:00 PT 11.2 SECONDS (9.6-11.2) 07/14/16 13:40 INR 1.08 (0.92-1.08) 07/14/16 13:40 APTT 26.0 SECONDS (23.3-32.5) 07/14/16 13:40 pO2 21 mm/Hg (30-55) L 07/14/16 13:30 VBG pH 7.35 (7.32-7.43) 07/14/16 13:30 VBG pCO2 58 mmHg (40-60) 07/14/16 13:30 VBG HCO3 26.8 mmol/L 07/14/16 13:30 VBG Total CO2 33.8 mmol/L (22-28) H 07/14/16 13:30 VBG O2 Sat (Calc) 41.7 % (40-65) 07/14/16 13:30 VBG Base Excess 4.7 mmol/L (0.0-2.0) H 07/14/16 13:30 VBG Potassium 3.6 mmol/L (3.6-5.2) 07/14/16 13:30 Sodium 138.0 mmol/L (132-148) 07/14/16 13:30 Chloride 101.0 mmol/L (98-107) 07/14/16 13:30 Glucose 89 mg/dL (65-105) 07/14/16 13:30 Lactate 1.1 mmol/L (0.7-2.1) 07/14/16 13:30 FiO2 21.0 % 07/14/16 13:30 Sodium 136 mmol/l (132-148) 07/20/16 12:35 Potassium 4.1 MMOL/L (3.6-5.0) 07/20/16 12:35 Chloride 102 mmol/L (98-107) 07/20/16 12:35 Carbon Dioxide 23 mmol/L (22-30) 07/20/16 12:35 Anion Gap 15 (10-20) 07/20/16 12:35 BUN 26 mg/dl (7-17) H 07/20/16 12:35 Creatinine 1.2 mg/dL (0.7-1.2) 07/20/16 12:35 Est GFR ( Amer) 52 07/20/16 12:35 Est GFR (Non-Af Amer) 43 07/20/16 12:35 POC Glucose (mg/dL) 174 mg/dL (65-110) H 07/17/16 21:32 Random Glucose 105 mg/dL (65-105) 07/20/16 12:35 Calcium 8.0 mg/dL (8.4-10.2) L 07/20/16 12:35 Magnesium 1.9 MG/DL (1.6-2.3) 07/14/16 13:40 Iron 33 ug/dL (37-170) L 07/15/16 06:00 TIBC 137 ug/dL (250-450) L 07/15/16 06:00 % Saturation 24 % (20-55) 07/15/16 06:00 Ferritin 406.0 ng/mL 07/15/16 06:00 Total Bilirubin 0.3 mg/dl (0.2-1.3) 07/20/16 12:35 AST 18 U/L (14-36) 07/20/16 12:35 ALT 19 U/L (9-52) 07/20/16 12:35 Alkaline Phosphatase 121 U/L (38-126) 07/20/16 12:35 Troponin I < 0.0120 ng/mL (0.00-0.120) 07/14/16 22:36 Total Protein 5.5 G/DL (6.3-8.2) L 07/20/16 12:35 Albumin 2.4 g/dL (3.5-5.0) L 07/20/16 12:35 Globulin 3.2 gm/dL (2.2-3.9) 07/20/16 12:35 Albumin/Globulin Ratio 0.8 (1.0-2.1) L 07/20/16 12:35 Lipase 19 U/L (23-300) L 07/14/16 13:40 Vitamin B12 208 pg/mL (239-931) L 07/15/16 06:00 Folate > 20.0 ng/mL 07/15/16 06:00 TSH 3rd Generation 0.16 mIU/ML (0.46-4.68) L 07/15/16 06:00 Venous Blood Potassium 3.6 mmol/L (3.6-5.2) 07/14/16 13:30 Urine Color Olga (YELLOW) 07/14/16 16:33 Urine Clarity Cloudy (Clear) 07/14/16 16:33 Urine pH 5.0 (5.0-8.0) 07/14/16 16:33 Ur Specific [place] 1.019 (1.003-1.030) 07/14/16 16:33 Urine Protein 30 mg/dL (NEGATIVE) 07/14/16 16:33 Urine Glucose (UA) Neg mg/dL (Normal) 07/14/16 16:33 Urine Ketones Trace mg/dL (NEGATIVE) 07/14/16 16:33 Urine Blood Negative (NEGATIVE) 07/14/16 16:33 Urine Nitrate Negative (NEGATIVE) 07/14/16 16:33 Urine Bilirubin Small (NEGATIVE) 07/14/16 16:33 Urine Urobilinogen 4.0 mg/dL (0.2-1.0) H 07/14/16 16:33 Ur Leukocyte Esterase Mod [place]/uL (Negative) 07/14/16 16:33 Urine RBC (Auto) 21 /hpf (0-3) H 07/14/16 16:33 Urine Microscopic WBC 443 /hpf (0-5) H 07/14/16 16:33 Ur Squamous Epith Cells 2 /hpf (0-5) 07/14/16 16:33 Urine Bacteria Many (<OCC) H 07/14/16 16:33 Hyaline Casts >20 /hpf (0-2) H 07/14/16 16:33 Urine Collection Time 24 HRS 07/16/16 Unknown Urine Total Volume 225 mL 07/16/16 Unknown Creatinine Clearance 24.0 mL/min (87-107) L 07/16/16 Unknown - Hospital Course Hospital Course: 80 F with pmhx of COPD (oxygen dependent), Diabetes, HTN, pancreatic mass, Arthritis, Anxiety, Dialysis (//Sat), Hypothyroid brought in from [facility] where she was being treated for continued renal failure c/o nausea admitted for complicated uti. During admission patient was afebrile, and renal function improved 24 % after creatinine clearance was done. Urine culture was positive for Klebsiella Pne, and managed with Ceftriaxone. Infectious disease was consulted due to worsening leukocytosis and Vancomycin was added. Nephrology was consulted and recommended D/C hemodialysis and permanent Cath. Today patient asymptomatic, afebrile, and WBC trending down. Patient stable to be discharged to a fci and finished IV antibiotics as directed.F/U Blood repeat culture. Home medications: Continue with current medications Vancomycin 1 gm IV daily x 4 days Rocephin 1 gm IV daily x 5 days - Date & Time of H&P Date of H&P: 07/14/16 Time of H&P: 17:45 Discharge Exam - Head Exam Head Exam: ATRAUMATIC, NORMAL INSPECTION - Additional Findings Additional findings: Constitutional Appears: Non-toxic, No Acute Distress - ENT Exam ENT Exam: Mucous Membranes Moist - Respiratory Exam Respiratory Exam: Clear to Ausculation Bilateral, NORMAL BREATHING PATTERN - Cardiovascular Exam Cardiovascular Exam: REGULAR RHYTHM, +S1, +S2 - GI/Abdominal Exam GI & Abdominal Exam: Soft, Normal Bowel Sounds. absent: Guarding, Rigid, Tenderness - Extremities Exam Extremities Exam: Pedal Edema. absent: Calf Tenderness - Neurological Exam Neurological Exam: Alert, Awake, Oriented x3 - Skin Skin Exam: Dry, Intact, Pallor Discharge Plan - Discharge Medications Prescriptions: cefTRIAXone 1 gm [Rocephin 1 gram IVPB] 1 gm IVPB DAILY #5 bag Vancomycin [Vancomycin Inj] 1 gm IV DAILY #4 vial - Follow Up Plan Condition: FAIR Disposition: TRANSF TO SNF Instructions: Urinary Tract Infection in Women (DC) Additional Instructions: please check labs: cbc, bmp, Vanco through in 2 days. F/U with Dr. Heather Gomez while in SNF. Referrals: Jason Romero MD [Staff Provider] - <Ewa Boyd - Last Filed: 07/22/16 08:29> Provider - Provider Date of Admission: 07/15/16 12:31 Attending physician: Aparna Harry MD Hospital Course - Lab Results Lab Results: Micro Results 07/20/16 17:00 Blood Blood Culture - Preliminary NO GROWTH AFTER 24 HOURS Most Recent Lab Values WBC 13.9 K/uL (4.8-10.8) H 07/21/16 05:30 RBC 3.39 Mil/uL (3.80-5.20) L 07/21/16 05:30 Hgb 9.3 g/dL (12.0-16.0) L 07/21/16 05:30 Hct 30.0 % (34.0-47.0) L 07/21/16 05:30 MCV 88.6 fl (81.0-99.0) 07/21/16 05:30 MCH 27.5 pg (27.0-31.0) 07/21/16 05:30 MCHC 31.0 g/dL (33.0-37.0) L 07/21/16 05:30 RDW 20.4 % (11.5-14.5) H 07/21/16 05:30 Plt Count 122 K/uL (130-400) L 07/21/16 05:30 MPV 8.9 fl (7.2-11.7) 07/21/16 05:30 Neut % (Auto) 76.1 % (50.0-75.0) H 07/21/16 05:30 Lymph % (Auto) 16.4 % (20.0-40.0) L 07/21/16 05:30 [place] % (Auto) 6.3 % (0.0-10.0) 07/21/16 05:30 Eos % (Auto) 0.8 % (0.0-4.0) 07/21/16 05:30 Baso % (Auto) 0.4 % (0.0-2.0) 07/21/16 05:30 Neut # 10.6 K/uL (1.8-7.0) H 07/21/16 05:30 Lymph # 2.3 K/uL (1.0-4.3) 07/21/16 05:30 [place] # 0.9 K/uL (0.0-0.8) H 07/21/16 05:30 Eos # 0.1 K/uL (0.0-0.7) 07/21/16 05:30 Baso # 0.1 K/uL (0.0-0.2) 07/21/16 05:30 Retic Count 2.6 % (0.5-1.5) H 07/15/16 06:00 PT 11.2 SECONDS (9.6-11.2) 07/14/16 13:40 INR 1.08 (0.92-1.08) 07/14/16 13:40 APTT 26.0 SECONDS (23.3-32.5) 07/14/16 13:40 pO2 21 mm/Hg (30-55) L 07/14/16 13:30 VBG pH 7.35 (7.32-7.43) 07/14/16 13:30 VBG pCO2 58 mmHg (40-60) 07/14/16 13:30 VBG HCO3 26.8 mmol/L 07/14/16 13:30 VBG Total CO2 33.8 mmol/L (22-28) H 07/14/16 13:30 VBG O2 Sat (Calc) 41.7 % (40-65) 07/14/16 13:30 VBG Base Excess 4.7 mmol/L (0.0-2.0) H 07/14/16 13:30 VBG Potassium 3.6 mmol/L (3.6-5.2) 07/14/16 13:30 Sodium 138.0 mmol/L (132-148) 07/14/16 13:30 Chloride 101.0 mmol/L (98-107) 07/14/16 13:30 Glucose 89 mg/dL (65-105) 07/14/16 13:30 Lactate 1.1 mmol/L (0.7-2.1) 07/14/16 13:30 FiO2 21.0 % 07/14/16 13:30 Sodium 136 mmol/l (132-148) 07/20/16 12:35 Potassium 4.1 MMOL/L (3.6-5.0) 07/20/16 12:35 Chloride 102 mmol/L (98-107) 07/20/16 12:35 Carbon Dioxide 23 mmol/L (22-30) 07/20/16 12:35 Anion Gap 15 (10-20) 07/20/16 12:35 BUN 26 mg/dl (7-17) H 07/20/16 12:35 Creatinine 1.2 mg/dL (0.7-1.2) 07/20/16 12:35 Est GFR ( Amer) 52 07/20/16 12:35 Est GFR (Non-Af Amer) 43 07/20/16 12:35 POC Glucose (mg/dL) 174 mg/dL (65-110) H 07/17/16 21:32 Random Glucose 105 mg/dL (65-105) 07/20/16 12:35 Calcium 8.0 mg/dL (8.4-10.2) L 07/20/16 12:35 Magnesium 1.9 MG/DL (1.6-2.3) 07/14/16 13:40 Iron 33 ug/dL (37-170) L 07/15/16 06:00 TIBC 137 ug/dL (250-450) L 07/15/16 06:00 % Saturation 24 % (20-55) 07/15/16 06:00 Ferritin 406.0 ng/mL 07/15/16 06:00 Total Bilirubin 0.3 mg/dl (0.2-1.3) 07/20/16 12:35 AST 18 U/L (14-36) 07/20/16 12:35 ALT 19 U/L (9-52) 07/20/16 12:35 Alkaline Phosphatase 121 U/L (38-126) 07/20/16 12:35 Troponin I < 0.0120 ng/mL (0.00-0.120) 07/14/16 22:36 Total Protein 5.5 G/DL (6.3-8.2) L 07/20/16 12:35 Albumin 2.4 g/dL (3.5-5.0) L 07/20/16 12:35 Globulin 3.2 gm/dL (2.2-3.9) 07/20/16 12:35 Albumin/Globulin Ratio 0.8 (1.0-2.1) L 07/20/16 12:35 Lipase 19 U/L (23-300) L 07/14/16 13:40 Vitamin B12 208 pg/mL (239-931) L 07/15/16 06:00 Folate > 20.0 ng/mL 07/15/16 06:00 TSH 3rd Generation 0.16 mIU/ML (0.46-4.68) L 07/15/16 06:00 Venous Blood Potassium 3.6 mmol/L (3.6-5.2) 07/14/16 13:30 Urine Color Olga (YELLOW) 07/14/16 16:33 Urine Clarity Cloudy (Clear) 07/14/16 16:33 Urine pH 5.0 (5.0-8.0) 07/14/16 16:33 Ur Specific [place] 1.019 (1.003-1.030) 07/14/16 16:33 Urine Protein 30 mg/dL (NEGATIVE) 07/14/16 16:33 Urine Glucose (UA) Neg mg/dL (Normal) 07/14/16 16:33 Urine Ketones Trace mg/dL (NEGATIVE) 07/14/16 16:33 Urine Blood Negative (NEGATIVE) 07/14/16 16:33 Urine Nitrate Negative (NEGATIVE) 07/14/16 16:33 Urine Bilirubin Small (NEGATIVE) 07/14/16 16:33 Urine Urobilinogen 4.0 mg/dL (0.2-1.0) H 07/14/16 16:33 Ur Leukocyte Esterase Mod [place]/uL (Negative) 07/14/16 16:33 Urine RBC (Auto) 21 /hpf (0-3) H 07/14/16 16:33 Urine Microscopic WBC 443 /hpf (0-5) H 07/14/16 16:33 Ur Squamous Epith Cells 2 /hpf (0-5) 07/14/16 16:33 Urine Bacteria Many (<OCC) H 07/14/16 16:33 Hyaline Casts >20 /hpf (0-2) H 07/14/16 16:33 Urine Collection Time 24 HRS 07/16/16 Unknown Urine Total Volume 225 mL 07/16/16 Unknown Creatinine Clearance 24.0 mL/min (87-107) L 07/16/16 Unknown - Hospital Course Hospital Course: ATTENDING NOTE/ ATTESTATION Patient seen and examined. Case discussed with resident. WBC improved. As per discussion with ID - if WBC improved today ok to transfer to SNF with continuation of IV antibiotics until course of treatment is completed. Agree with plan.
--- NOTE | 2016-07-24 12:49 | VASCULAR ---
PROCEDURE: Intraoperative Fluoroscopy. HISTORY: dialysis not longer needed. FINDINGS: 24.4 seconds of fluoroscopy time utilized for this procedure. Total radiation dose = 2.03 mGy. Please refer to operative report for additional details.
== END 2016-07-21 16:55 | DRG 872 ==
LOC: H.ER 12:00 → H.ERHOLD 17:06 → H.MEDSURG1 18:27 → OBSVTOIN 07-15 12:31 → H.MEDSURG1 07-15 16:00
PROVIDERS: ADMIT Family Medicine Geriatric Medicine; ATTEND Family Medicine Geriatric Medicine
PROC: 05PY33Z Removal of Infusion Device from Upper Vein, Percutaneous Approach (ICD-10-PCS; principal; 2016-07-20)
DX: A41.89 Other specified sepsis (principal); N17.9 Acute kidney failure, unspecified; L89.321 Pressure ulcer of left buttock, stage 1; D69.6 Thrombocytopenia, unspecified; E11.22 Type 2 diabetes mellitus with diabetic chronic kidney disease; N39.0 Urinary tract infection, site not specified; E87.1 Hypo-osmolality and hyponatremia; F03.90 Unspecified dementia, unspecified severity, without behavioral disturbance, psychotic disturbance, mood disturbance, and anxiety; Z99.81 Dependence on supplemental oxygen; N18.3 Chronic kidney disease, stage 3 (moderate); I12.9 Hypertensive chronic kidney disease with stage 1 through stage 4 chronic kidney disease, or unspecified chronic kidney disease; B96.1 Klebsiella pneumoniae [K. pneumoniae] as the cause of diseases classified elsewhere; E86.0 Dehydration; E87.6 Hypokalemia; D63.1 Anemia in chronic kidney disease; J44.9 Chronic obstructive pulmonary disease, unspecified; E83.52 Hypercalcemia; I25.10 Atherosclerotic heart disease of native coronary artery without angina pectoris; E78.00 Pure hypercholesterolemia, unspecified; E03.9 Hypothyroidism, unspecified; N83.292 Other ovarian cyst, left side; K86.9 Disease of pancreas, unspecified; F41.9 Anxiety disorder, unspecified; D72.829 Elevated white blood cell count, unspecified; M19.90 Unspecified osteoarthritis, unspecified site; Z99.2 Dependence on renal dialysis; Z88.8 Allergy status to other drugs, medicaments and biological substances; Z90.49 Acquired absence of other specified parts of digestive tract

== ENCOUNTER 2016-07-31 04:34 | Inpatient (IN) | payer MEDICARE, MEDICAID ==
[2016-07-31 04:34] VITALS: BMI 29.2
--- NOTE | 2016-07-31 05:28 | ED PDOC ---
HPI: SOB/CHF/COPD Time Seen by Provider: 07/31/16 04:36 Chief Complaint (Nursing): Shortness Of Breath Chief Complaint (Provider): Shortness of Breath History Per: Patient History/Exam Limitations: no limitations Current Symptoms Are (Timing): Still Present Associated Symptoms: denies: Fever, Chest Pain Additional Complaint(s): Vanessa May, an 81 year old female, who has a PMHx of COPD presents to the ED with shortness of breath. The patient was brought in this morning by EMS after calling 911 when her oxygen at home had depleted (O2 home dependent). Patient denies any other complaint beyond experiencing shortness of breath without oxygen.The patient does have a cough but states that the cough is chronic. She also states that she was recently discharged after being admitted for sepsis and cellulitis. No associated chest pain, fever, nausea, diarrhea and vomiting. Past Medical History Vital Signs: Last Vital Signs Temp 98.4 F 07/31/16 04:37 Pulse 99 H 07/31/16 04:37 Resp 22 07/31/16 05:53 BP 124/66 07/31/16 04:37 Pulse Ox 96 07/31/16 06:00 - Medical History PMH: Anxiety, Arthritis, CAD, COPD, Dementia, Depression, Diabetes, HTN, Hypercholesterolemia, Hypothyroidism, Pneumonia, End Stage Renal Disease, Chronic Kidney Disease, Seizures Denies: Atrial Fibrillation, Cardia Arrhythmia, CHF, HIV, Mitral Valve Prolapse, Peripheral Edema - Surgical History Surgical History: Cholecystectomy Denies: Pacemaker - Family History Family History: States: Unknown Family Hx - Living Arrangements Living Arrangements: Alone (Lives alone and has a homemaker.) - Immunization History Hx Tetanus Toxoid Vaccination: Yes - Home Medications Home Medications: Ambulatory Orders Medication Instructions Recorded Vitamin B Complex/Vit C/Folic 1 tab PO DAILY tab 05/29/16 [Nephro-[place]] ALPRAZolam [Xanax] 0.25 mg PO HS 07/14/16 Acetaminophen [Tylenol 325mg tab] 650 mg PO Q4H PRN 07/14/16 Acetaminophen [Tylenol 325mg tab] 650 mg PO Q4H PRN 07/14/16 Levothyroxine [Synthroid] 25 mcg PO DAILY 07/14/16 Loperamide HCl [Imodium A-D] 1 tab PO Q4 PRN 07/14/16 Magnesium Hydroxide [Milk Of 30 ml PO Q72 PRN 07/14/16 Magnesia] Nut.tx.gluc.intoler,Lac-Fr,Soy 237 ml PO BID 07/14/16 [Ensure Glucerna Shake 237 ml] Ondansetron [Zofran Inj] 4 mg IM Q8H PRN 07/14/16 Pantoprazole Sodium [Protonix] 40 mg PO DAILY 07/14/16 guaiFENesin/Dextromethorphan 5 ml PO Q8H PRN 07/14/16 [Guaifenesin-Dm 10 MG/5 Ml-100 MG/5 Ml 5 Ml] Vancomycin [Vancomycin Inj] 1 gm IV DAILY #4 vial 07/21/16 cefTRIAXone 1 gm [Rocephin 1 gram 1 gm IVPB DAILY #5 bag 07/21/16 IVPB] - Allergies Allergies/Adverse Reactions: Allergies Allergy/AdvReac Type Severity Reaction Status Date / Time ambien AdvReac Severe HEADACHE Uncoded 05/11/16 17:37 Review of Systems ROS Statement: Except As Marked, All Systems Reviewed And Found Negative Constitutional: Negative for: Fever Cardiovascular: Negative for: Chest Pain Respiratory: Positive for: Cough (Chronic cough), Shortness of Breath Gastrointestinal: Negative for: Nausea, Vomiting, Diarrhea Physical Exam - Reviewed Nursing Documentation Reviewed: Yes Vital Signs Reviewed: Yes - Physical Exam Appears: Positive for: Non-toxic, No Acute Distress Head Exam: Positive for: ATRAUMATIC, NORMOCEPHALIC Skin: Positive for: Warm, Dry. Negative for: Normal Color (Pale) Eye Exam: Positive for: Normal appearance, EOMI, PERRL ENT: Positive for: Normal ENT Inspection Neck: Positive for: Normal, Painless ROM, Supple Cardiovascular/Chest: Positive for: Regular Rate, Rhythm, Chest Non Tender. Negative for: Tachycardia Respiratory: Positive for: Rhonchi (Scattered ronchi bilaterally.). Negative for: Respiratory Distress Gastrointestinal/Abdominal: Positive for: Normal Exam Back: Positive for: Normal Inspection Extremity: Positive for: Normal ROM, Other (Mild edema to lower extremeties 1+.) Neurologic/Psych: Positive for: Alert, Oriented - Laboratory Results Result Diagrams: 07/31/16 05:45 07/31/16 05:45 - ECG O2 Sat by Pulse Oximetry: 96 (RA) Pulse Ox Interpretation: Normal Medical Decision Making Medical Decision Makin Initial Impression: 81 year old female presenting with SOB in setting of home oxygen dependency and depletion of home oxygen. Initial Plan: * EKG * B-type natriuretic peptide * CMP * Lactic Acid * Troponin 1 * Udip * CBC * PTT * Protrombin time * CXR * Blood culture * Influenza A B * admit 0514 Patient placed on 02 and report improvement. [address] Medina (covering Dr. Infante) family practice resident surgery consultant for patient to be placed on observation until oxygen arrangements can be made for patient at home. __ Scribe Attestation Documented by Angeline Causey acting as a scribe for Asaf Harvey MD. Provider Attestation All medical record entries made by the Scribe were at my direction and personally dictated by me. I have reviewed the chart and agree that the record accurately reflects my personal performance of the history, physical exam, medical decision making, and the department course for this patient. I have also personally directed, reviewed, and agree with the discharge instructions and disposition Disposition - Clinical Impression Clinical Impression: Dyspnea - Patient ED Disposition Is Patient to be Admitted: Yes Discussed With DrRenee: Maritza Medina Counseled Patient/Family Regarding: Studies Performed, Diagnosis - Disposition Disposition Time: 05:14 Condition: FAIR
[2016-07-31 06:07] LABS: BASO # 0.1 K/uL (0.0-0.2); BASO % 0.7 % (0.0-2.0); EOS # 0.2 K/uL (0.0-0.7); EOS % 2.2 % (0.0-4.0); HEMATOCRIT 36.7 % (34.0-47.0); LYMPH # 1.8 K/uL (1.0-4.3); LYMPH % 16.2 % (20.0-40.0); MEAN CELL VOLUME 89.1 fl (81.0-99.0); MEAN CORPUSCULAR HEMOGLOBIN 27.7 pg (27.0-31.0); MEAN CORPUSCULAR HGB CONC 31.1 g/dL (33.0-37.0); MONO # 0.5 K/uL (0.0-0.8); MONO % 4.4 % (0.0-10.0); NEUT # 8.5 K/uL (1.8-7.0); NEUT % 76.5 % (50.0-75.0); RED CELL DISTRIBUTION WIDTH 19.3 % (11.5-14.5); WHITE BLOOD COUNT 11.1 K/uL (4.8-10.8)
[2016-07-31] MEDS ORDERED: Albuterol-Ipratrop 3 mg / 0.5 (3 ml) UD INH STA (06:13)
[2016-07-31 06:15] LABS: ALB/GLOB RATIO 0.8 (1.0-2.1); ALKALINE PHOSPHATASE 158 U/L (38-126); ALT/SGPT 31 U/L (9-52); AST/SGOT 34 U/L (14-36); BILIRUBIN,TOTAL 0.4 mg/dl (0.2-1.3); BLOOD UREA NITROGEN 14 mg/dl (7-17); CALCIUM 8.5 mg/dL (8.4-10.2); CARBON DIOXIDE 24 mmol/L (22-30); CHLORIDE 107 mmol/L (98-107); GFR AFRICAN-AMERICAN > 60; GLUCOSE,RANDOM 97 mg/dL (65-105); PARTIAL THROMBOPLASTIN TIME 28.2 SECONDS (23.3-32.5); SODIUM 139 mmol/l (132-148); TOTAL PROTEIN 6.3 G/DL (6.3-8.2)
--- NOTE | 2016-07-31 07:42 | CARD ---
APPROVED REPORT EKG Measurement Heart [id number] ME [id number] <Conclusion> Sinus rhythm with premature atrial complexes with aberrant conduction Possible Left atrial enlargement Right bundle branch block Left anterior fascicular block Bifascicular block Possible Anterior wall infarct, age undetermined Abnormal ECG
[2016-07-31] MEDS: Levothyroxine 25 MCG TAB PO SCH (09:59)
[2016-07-31] MEDS: guaiFENesin DM 100 mg-10 mg/5 ml UD PO PRN ×2 (09:59→20:19)
[2016-07-31] MEDS: Pantoprazole 40 mg EC Tab PO SCH (10:00)
[2016-07-31] MEDS: Multivitamin Vitamin B Complex (Nephro-Vite) Tab PO SCH (10:00)
--- NOTE | 2016-07-31 15:35 | RAD ---
HISTORY: Cough. Portable study 05:57. COMPARISON: 07/15/2016. FINDINGS: LUNGS: Compressive atelectasis, consolidative changes left lung a new finding compared to prior studies. PLEURA: New left pleural effusion. She CARDIOVASCULAR: Normal. OSSEOUS STRUCTURES: No significant abnormalities. VISUALIZED UPPER ABDOMEN: Normal. OTHER FINDINGS: Removal of support apparatus since the prior study: Venous access/ dialysis catheter. IMPRESSION: New infiltrates involving left lower lobe left upper lobe. Associated left pleural effusion.
--- NOTE | 2016-07-31 18:21 | CP.PCM.HP ---
<Lorna Benavides - Last Filed: 07/31/16 19:30> History of Present Illness - History of Present Illness History of Present Illness: This is a 80 F with PMHx of COPD (oxygen dependent), Diabetes, HTN, pancreatic mass, Arthritis, Anxietys/p dialysis who was brought by family to ED because oxygen tank ran out at home. Patient denies chest pain, SOB from baseline, fevers, chills, nausea, vomiting, urinary symptoms, diarrheas, abdominal pain or other complains. . PMD: Dr Holm PMH: COPD (oxygen dependent), Diabetes, HTN, pancreatic mass, Arthritis, Anxiety , Dialysis (//Sat), Hypothyroid PSH: Cholecystectomy ED course: Afebrile Continuous Oxygen 2 LMP by [place] Duoneb inh stat once CBC, CMP, blood culture, pro-BNP, troponin I Present on Admission - Present on Admission Any Indicators Present on Admission: No History of DVT/PE: No History of Uncontrolled Diabetes: No Urinary Catheter: No Decubitus Ulcer Present: No Past Patient History - Past Medical History & Family History Past Medical History?: Yes - Past Social History Smoking Status: Never Smoked - CARDIAC Hx Atrial Fibrillation: No Hx Cardia Arrhythmia: No Hx Congestive Heart Failure: No Hx Hypercholesterolemia: Yes Hx Hypertension: Yes Hx Mitral Valve Prolapse: No Hx Pacemaker: No Hx Peripheral Edema: No - PULMONARY Hx Chronic Obstructive Pulmonary Disease (COPD): Yes Hx Pneumonia: Yes - NEUROLOGICAL Hx Dementia: Yes Hx Seizures: Yes - HEENT Hx HEENT Problems: No - RENAL Hx Chronic Kidney Disease: Yes - ENDOCRINE/METABOLIC Hx Hypothyroidism: Yes - HEMATOLOGICAL/ONCOLOGICAL Hx Human Immunodeficiency Virus (HIV): No - INTEGUMENTARY Hx Dermatological Problems: No - MUSCULOSKELETAL/RHEUMATOLOGICAL Hx Arthritis: Yes - GASTROINTESTINAL Hx Gastrointestinal Disorders: No - GENITOURINARY/GYNECOLOGICAL Hx Genitourinary Disorders: Yes - PSYCHIATRIC Hx Anxiety: Yes Hx Depression: Yes - SURGICAL HISTORY Hx Cholecystectomy: Yes - ANESTHESIA Hx Anesthesia: Yes Hx Anesthesia Reactions: No Hx Malignant Hyperthermia: No Meds Allergies/Adverse Reactions: Allergies Allergy/AdvReac Type Severity Reaction Status Date / Time ambien AdvReac Severe HEADACHE Uncoded 05/11/16 17:37 Physical Exam - Additional Findings Additional findings: Constitutional Appears: Well, Non-toxic, No Acute Distress, Older Than Stated Age - Head Exam Head Exam: ATRAUMATIC, NORMAL INSPECTION - Eye Exam Eye Exam: EOMI, Normal appearance - ENT Exam ENT Exam: Mucous Membranes Dry, Normal Exam - Neck Exam Neck exam: Positive for: Full Rom, Normal Inspection - Respiratory Exam Respiratory Exam: Clear to Auscultation Bilateral, NORMAL BREATHING PATTERN. absent: Rales, Wheezes - Cardiovascular Exam Cardiovascular Exam: REGULAR RHYTHM, normal S1, S2. absent: JVD - GI/Abdominal Exam GI & Abdominal Exam: Normal Bowel Sounds (obese, scattered ecchymosis from SC injections ), Soft. absent: Tenderness - Extremities Exam Extremities exam: Positive for: full ROM, normal capillary refill, pedal pulses present. Negative for: calf tenderness, normal inspection (Hyperpigmentation R> L likely 2/2 venous stasis), pedal edema - Neurological Exam Neurological exam: Alert, Oriented x3 - Psychiatric Exam Psychiatric exam: Normal Affect, Normal Mood - Skin Skin Exam: Normal Color, Warm Results - Vital Signs Recent Vital Signs: Last Vital Signs Temp 97.9 F 07/31/16 12:17 Pulse 90 07/31/16 12:17 Resp 31 H 07/31/16 12:17 BP 115/62 07/31/16 12:17 Pulse Ox 95 07/31/16 12:17 - Labs Result Diagrams: 07/31/16 05:45 07/31/16 05:45 Labs: Laboratory Results - last 24 hr 07/31/16 07/31/16 07/31/16 05:45 05:45 05:45 WBC 11.1 H RBC 4.12 Hgb 11.4 L D Hct 36.7 MCV 89.1 MCH 27.7 MCHC 31.1 L RDW 19.3 H Plt Count 262 D MPV 8.0 Neut % (Auto) 76.5 H Lymph % (Auto) 16.2 L Barnes % (Auto) 4.4 Eos % (Auto) 2.2 Baso % (Auto) 0.7 Neut # 8.5 H Lymph # 1.8 Barnes # 0.5 Eos # 0.2 Baso # 0.1 PT INR APTT Sodium 139 Potassium 4.0 Chloride 107 Carbon Dioxide 24 Anion Gap 12 BUN 14 Creatinine 0.9 Est GFR ( Amer) > 60 Est GFR (Non-Af Amer) 60 POC Glucose (mg/dL) Random Glucose 97 Lactic Acid Calcium 8.5 Total Bilirubin 0.4 AST 34 ALT 31 Alkaline Phosphatase 158 H D Troponin I < 0.0120 NT-Pro-B Natriuret Pep 00284 H Total Protein 6.3 Albumin 2.7 L Globulin 3.6 Albumin/Globulin Ratio 0.8 L Influenza Typ A,B (EIA) Negative for flu a/b 07/31/16 07/31/16 07/31/16 05:45 05:45 06:59 WBC RBC Hgb Hct MCV MCH MCHC RDW Plt Count MPV Neut % (Auto) Lymph % (Auto) Barnes % (Auto) Eos % (Auto) Baso % (Auto) Neut # Lymph # Barnes # Eos # Baso # PT 11.2 INR 1.08 APTT 28.2 Sodium Potassium Chloride Carbon Dioxide Anion Gap BUN Creatinine Est GFR ( Amer) Est GFR (Non-Af Amer) POC Glucose (mg/dL) 118 H Random Glucose Lactic Acid 1.1 Calcium Total Bilirubin AST ALT Alkaline Phosphatase Troponin I NT-Pro-B Natriuret Pep Total Protein Albumin Globulin Albumin/Globulin Ratio Influenza Typ A,B (EIA) Assessment & Plan - Assessment and Plan (Free Text) Assessment: 80 F with PMHx of COPD (oxygen dependent), Diabetes, HTN, pancreatic mass, Arthritis, Anxiety, s/p dialysis admitted for observation after she ran out of Oxygen supply at home. Plan: COPD Oxygen dependent in no exacerbation Afebrile, SOB no changed from baseline Persistent leukocytosis noted in previous admission and has improved c/w continuous Oxygen 2 LPM by [place] Oxygen Sat 96 % and stable Vital signs stable CXR showed new left lower/upper lobes infiltrates and associated left pleural effusion F/U labs H/O HTN (hypertension) Well-controlled, will continue to monitor. No taking medications H/O DMII (diabetes mellitus, type 2) no medications listed. - Accu-check ACHS Hypothyroidism -Chronic, asymptomatic c/w synthroid Normocytic anemia Improving compared with previous admission Likely multifactorial DVT prophylaxis Lovenox 40 mg SC daily - Date & Time Date: 07/31/16 Time: 11:00 <Eddie Holm - Last Filed: 08/01/16 06:58> Results - Vital Signs Recent Vital Signs: Last Vital Signs Temp 97.9 F 07/31/16 21:45 Pulse 98 H 07/31/16 21:45 Resp 20 07/31/16 21:45 BP 146/83 07/31/16 21:45 Pulse Ox 96 07/31/16 21:45 - Labs Result Diagrams: 07/31/16 05:45 07/31/16 05:45 Labs: Laboratory Results - last 24 hr 08/01/16 05:43 POC Glucose (mg/dL) 84 Attending/Attestation - Attestation I have personally seen and examined this patient.: Yes I have fully participated in the care of the patient.: Yes I have reviewed all pertinent clinical information: Yes
[2016-07-31] MEDS ORDERED: guaiFENesin 100 mg/5 ml Syrup UD ONE (20:01)
[2016-07-31] MEDS ORDERED: Albuterol-Ipratrop 3 mg / 0.5 (3 ml) UD INH ONE (22:32)
[2016-08-01] MEDS: Levothyroxine 25 MCG TAB PO SCH (05:46)
[2016-08-01] MEDS: guaiFENesin DM 100 mg-10 mg/5 ml UD PO PRN ×2 (06:53→18:46)
--- NOTE | 2016-08-01 10:20 | RAD ---
PROCEDURE: CHEST RADIOGRAPH, 1 VIEW HISTORY: pleural effusion COMPARISON: None available. FINDINGS: LUNGS: Haziness overlying the left lung suggesting underlying pleural effusion. No air-fluid level noted on PLEURA: Decubitus views. See above. CARDIOVASCULAR: Normal. OSSEOUS STRUCTURES: No significant abnormalities. VISUALIZED UPPER ABDOMEN: Normal. OTHER FINDINGS: None. IMPRESSION: Question left pleural effusion. Recommend correlation with CT scan.
[2016-08-01] MEDS: Enoxaparin 40 mg Syringe SC SCH (10:43)
[2016-08-01] MEDS: Multivitamin Vitamin B Complex (Nephro-Vite) Tab PO SCH (10:43)
[2016-08-01] MEDS: Pantoprazole 40 mg EC Tab PO SCH (10:43)
--- NOTE | 2016-08-01 11:05 | CP.PCM.PN ---
<Leny Benavidesth - Last Filed: 08/01/16 11:02> Subjective - Date & Time of Evaluation Date of Evaluation: 08/01/16 Time of Evaluation: 07:50 - Subjective Subjective: Patient was seen and examined at bedside this morning. Patient with wet cough associated to white sputum production. Afebrile. Denies chest pain, increased SOB baseline, N/V, abdominal pain. Patient in continuous oxygen by [place]. Objective - Vital Signs/Intake and Output Vital Signs (last 24 hours): Temp Pulse Resp BP Pulse Ox 98.9 F 91 H 20 114/65 97 08/01/16 08:07 08/01/16 08:07 08/01/16 08:07 08/01/16 08:07 08/01/16 08:07 - Medications Medications: Current Medications Acetaminophen (Tylenol 325mg Tab) 650 mg PO Q4H PRN PRN Reason: Fever >100.4 F Alprazolam (Xanax) 0.25 mg PO HS [facility] Stop: 08/07/16 22:01 Last Admin: 07/31/16 22:24 Dose: 0.25 mg Enoxaparin Sodium (Lovenox) 40 mg SC DAILY [facility] PRN Reason: Protocol Last Admin: 08/01/16 10:43 Dose: 40 mg Guaifenesin/Dextromethorphan (Robitussin Dm) 5 ml PO Q8H PRN PRN Reason: Cough Last Admin: 08/01/16 06:53 Dose: 5 ml Levothyroxine Sodium (Synthroid) 25 mcg PO DAILY@0630 [facility] Last Admin: 08/01/16 05:46 Dose: 25 mcg Pantoprazole Sodium (Protonix Ec Tab) 40 mg PO DAILY [facility] Last Admin: 08/01/16 10:43 Dose: 40 mg Vitamin B Complex/Vit C/Folic Acid (Nephro-Berkley) 1 tab PO DAILY [facility] Last Admin: 08/01/16 10:43 Dose: 1 tab - Labs Labs: PT 11.2 SECONDS (9.6-11.2) 07/31/16 05:45 INR 1.08 (0.92-1.08) 07/31/16 05:45 APTT 28.2 SECONDS (23.3-32.5) 07/31/16 05:45 Assessment and Plan - Assessment and Plan (Free Text) Assessment: 80 F with PMHx of COPD (oxygen dependent), Diabetes, HTN, pancreatic mass, Arthritis, Anxiety, s/p dialysis admitted for observation after she ran out of Oxygen supply at home. Plan: COPD Oxygen dependent in no exacerbation Afebrile, SOB no changed from baseline Persistent leukocytosis noted in previous admission and has improved c/w continuous Oxygen 2 LPM by [place] Oxygen Sat 96 % and stable Vital signs stable CXR showed new left lower/upper lobes infiltrates and associated left pleural effusion Left pleural effusion -Worsening pleural effusion compared with previous admission -Pulmunology consult appreciated, Dr. Kasper -f/U decubitus bilateral x ray -Consider Echocardiogram -Consider Thoracentesis if 300 cc or more of fluids -Consider VQ scan as per pulmunology rec ( r/o PE) ( patient has a normal renal function, but she was previously in dialysis, DC from dialysis in previous admission by Nephro due to improvement in renal function) -Consider PT/INR if throracentesis H/O HTN (hypertension) Well-controlled, will continue to monitor. No taking medications H/O DMII (diabetes mellitus, type 2) no medications listed. -POC glucose today 84 - Accu-check ACHS Hypothyroidism -Chronic, asymptomatic c/w synthroid Normocytic anemia Improving compared with previous admission Likely multifactorial DVT prophylaxis Lovenox 40 mg SC daily <Eddie Holm - Last Filed: 08/03/16 06:53> Objective - Vital Signs/Intake and Output Vital Signs (last 24 hours): Temp Pulse Resp BP Pulse Ox 97.5 F L 87 18 112/63 98 08/03/16 00:10 08/03/16 00:10 08/03/16 00:10 08/03/16 00:10 08/03/16 00:10 - Medications Medications: Current Medications Acetaminophen (Tylenol 325mg Tab) 650 mg PO Q4H PRN PRN Reason: Fever >100.4 F Acetaminophen (Tylenol 325mg Tab) 650 mg PO Q4 PRN PRN Reason: Pain, Mild (1-3) Last Admin: 08/02/16 18:45 Dose: 650 mg Alprazolam (Xanax) 0.25 mg PO HS [facility] Stop: 08/07/16 22:01 Last Admin: 08/02/16 21:25 Dose: 0.25 mg Enoxaparin Sodium (Lovenox) 40 mg SC DAILY [facility] PRN Reason: Protocol Last Admin: 08/02/16 09:06 Dose: 40 mg Guaifenesin/Dextromethorphan (Robitussin Dm) 5 ml PO Q8H PRN PRN Reason: Cough Last Admin: 08/03/16 03:21 Dose: 5 ml Levothyroxine Sodium (Synthroid) 25 mcg PO DAILY@0630 [facility] Last Admin: 08/03/16 06:47 Dose: 25 mcg Pantoprazole Sodium (Protonix Ec Tab) 40 mg PO DAILY [facility] Last Admin: 08/02/16 09:06 Dose: 40 mg Vitamin B Complex/Vit C/Folic Acid (Nephro-Berkley) 1 tab PO DAILY [facility] Last Admin: 08/02/16 09:07 Dose: 1 tab - Labs Labs: PT 11.2 SECONDS (9.6-11.2) 07/31/16 05:45 INR 1.08 (0.92-1.08) 07/31/16 05:45 APTT 28.2 SECONDS (23.3-32.5) 07/31/16 05:45 Attending/Attestation - Attestation I have personally seen and examined this patient.: Yes I have fully participated in the care of the patient.: Yes I have reviewed all pertinent clinical information, including history, physical exam and plan: Yes
--- NOTE | 2016-08-01 11:27 | CP.PCM.CON ---
History of Present Illness - History of Present Illness History of Present Illness: This 81 year old Greenlandic speaking female with a past diagnosis of COPD and hypoxia was brought in to the emergency room after she apparently ran out of O2 at home. She was complaining of SOPB at that time as well as a cough which she claims is chronic. A chest x-ray shows left sided pleural effusion and pulmonary consult was requested. There was no complaint of chest pain or hemoptysis. She is a 'never smoker' who has had pneumonia in the past. Past Patient History - Past Medical History & Family History Past Medical History?: Yes - Past Social History Smoking Status: Never Smoked Chewing Tobacco Use: No Cigar Use: No Alcohol: None Drugs: Denies Home Situation {Lives}: Alone - CARDIAC Hx Hypercholesterolemia: Yes Hx Hypertension: Yes - PULMONARY Hx Chronic Obstructive Pulmonary Disease (COPD): Yes Hx Pneumonia: Yes - NEUROLOGICAL Hx Dementia: Yes - HEENT Hx HEENT Problems: No - RENAL Hx Chronic Kidney Disease: Yes Hx Dialysis: Yes - ENDOCRINE/METABOLIC Hx Diabetes Mellitus Type 2: Yes Hx Hypothyroidism: Yes - HEMATOLOGICAL/ONCOLOGICAL Hx Blood Disorders: No - INTEGUMENTARY Hx Dermatological Problems: No - MUSCULOSKELETAL/RHEUMATOLOGICAL Hx Arthritis: Yes Hx Falls: No - GASTROINTESTINAL Hx Gastrointestinal Disorders: No - PSYCHIATRIC Hx Anxiety: Yes Hx Depression: Yes Hx Substance Use: No - SURGICAL HISTORY Hx Cholecystectomy: Yes - ANESTHESIA Hx Anesthesia: Yes Hx Anesthesia Reactions: No Hx Malignant Hyperthermia: No Meds Allergies/Adverse Reactions: Allergies Allergy/AdvReac Type Severity Reaction Status Date / Time ambien AdvReac Severe HEADACHE Uncoded 05/11/16 17:37 - Medications Medications: Current Medications Acetaminophen (Tylenol 325mg Tab) 650 mg PO Q4H PRN PRN Reason: Fever >100.4 F Alprazolam (Xanax) 0.25 mg PO HS [facility] Stop: 08/07/16 22:01 Last Admin: 07/31/16 22:24 Dose: 0.25 mg Enoxaparin Sodium (Lovenox) 40 mg SC DAILY [facility] PRN Reason: Protocol Last Admin: 08/01/16 10:43 Dose: 40 mg Guaifenesin/Dextromethorphan (Robitussin Dm) 5 ml PO Q8H PRN PRN Reason: Cough Last Admin: 08/01/16 06:53 Dose: 5 ml Levothyroxine Sodium (Synthroid) 25 mcg PO DAILY@0630 [facility] Last Admin: 08/01/16 05:46 Dose: 25 mcg Pantoprazole Sodium (Protonix Ec Tab) 40 mg PO DAILY [facility] Last Admin: 08/01/16 10:43 Dose: 40 mg Vitamin B Complex/Vit C/Folic Acid (Nephro-Berkley) 1 tab PO DAILY [facility] Last Admin: 08/01/16 10:43 Dose: 1 tab Physical Exam - Additional Findings Additional findings: Elderly female, well nourished and well developed, coughing non-productively during exam. Pharynx is pink and moist, no exudates. Nares patent bilaterally. neck supple and trachea midline, no visible JVD. Dullness on percussion of the left lung base posteriorly. Absent VTF same area. Breath sounds are present bilaterally, diminished, absent in the left base. No audible wheezing, few scattered rhonchi in LL's. No bronchial breath sounds. Heart sounds are distant, rhythm is regular with PHB's. Abdomen is soft with NABS. No dependant edema, no cyanosis, no calf tenderness. Results - Vital Signs Recent Vital Signs: Last Vital Signs Temp 98.9 F 08/01/16 08:07 Pulse 91 H 08/01/16 08:07 Resp 20 08/01/16 08:07 BP 114/65 08/01/16 08:07 Pulse Ox 97 08/01/16 08:07 - Labs Result Diagrams: 08/03/16 07:20 08/03/16 07:20 Labs: Laboratory Results - last 24 hr 08/01/16 05:43 POC Glucose (mg/dL) 84 Assessment & Plan (1) Pleural effusion on left Status: Acute Priority: High Comment: Recommend IR thoracentesis and eval of fluid. - Assessment and Plan (Free Text) Plan: Cardiology work up with echocardiogram. Diuretic therapy if indicated. If above are unremarkable then a V/Q scan for occult PE would be warranted. - Date & Time Date: 08/01/16 Time: 11:26
[2016-08-01] MEDS ORDERED: Lidocaine 1% Inj (20ml) ONE (15:03)
[2016-08-01] MEDS ORDERED: Etomidate 20 mg/10ml Inj IV ONE (15:03)
--- NOTE | 2016-08-01 15:03 | PCM.SURG1 ---
Surgeon's Initial Post Op Note - Surgeon's Notes Surgeon: Angel Coelho MD Machine Design Engineer: NONE Type of Anesthesia: Local Pre-Operative Diagnosis: Left pleural effusion Operative Findings: US showed a moderate left effusion Post-Operative Diagnosis: Left pleural effusion Operation Performed: US guided left thoracentesis. Specimen/Specimens Removed: 700 cc of slight serosanguinous fluid Estimated Blood Loss: EBL {In ML}: 0 Blood Products Given: N/A Drains Used: No Drains Post-Op Condition: Fair Date of Surgery/Procedure: 08/01/16 Time of Surgery/Procedure: 15:00
--- NOTE | 2016-08-01 16:48 | RAD ---
PROCEDURE: CHEST RADIOGRAPH, 1 VIEW HISTORY: Status post left thoracentesis. COMPARISON: August 01, 2016. 08:16. FINDINGS: LUNGS: Improved aeration of the left lung following recent thoracentesis. PLEURA: Substantial decrease in left pleural effusion. No pneumothorax identified. CARDIOVASCULAR: No radiographic findings to suggest acute or significant cardiovascular disease. OSSEOUS STRUCTURES: No significant abnormalities. VISUALIZED UPPER ABDOMEN: Normal. OTHER FINDINGS: None. IMPRESSION: Status post left thoracentesis. Decrease in left pleural effusion, commensurate re-expansion of the left lung. No pneumothorax identified.
[2016-08-01 17:39] LABS: BODY FLUID TYPE PLEURAL/THORACENTESI
[2016-08-01 18:43] LABS: BF GROSS APPEARANCE BLOODY (CLEAR)
[2016-08-01 18:58] LABS: BODY FLUID TOTAL COUNT 100 (0-0)
[2016-08-02] MEDS: guaiFENesin DM 100 mg-10 mg/5 ml UD PO PRN (03:01)
[2016-08-02] MEDS: Levothyroxine 25 MCG TAB PO SCH (06:34)
[2016-08-02] MEDS: Enoxaparin 40 mg Syringe SC SCH (09:06)
[2016-08-02] MEDS: Pantoprazole 40 mg EC Tab PO SCH (09:06)
[2016-08-02] MEDS: Multivitamin Vitamin B Complex (Nephro-Vite) Tab PO SCH (09:07)
--- NOTE | 2016-08-02 11:00 | CT ---
PROCEDURE: Date of procedure: 08/01/2016 Procedure: 1. Ultrasound-guided left thoracentesis, CPT 60282 Medications: 5cc 1% Lidocaine HISTORY: Left pleural effusion, shortness of breath TECHNIQUE: Following informed consent ,the Patients' left chest was marked. Procedure time-out was called, and the patient was placed in the sitting position and limited ultrasound showed a large left effusion. The patient's left back was prepped and draped in the usual sterile fashion. After the skin was anesthetized with lidocaine, a drainage catheter was advanced under ultrasound guidance into the pleural space. Ultrasound-guided thoracentesis was performed. A total of 700 cubic centimeters of slight serosanguinous fluid removed without complication. A Xeroform dressing was applied. IMPRESSION: Ultrasound guided left thoracentesis. There were no immediate complications.
--- NOTE | 2016-08-02 20:20 | CP.PCM.PN ---
<Yvette Rivera - Last Filed: 08/02/16 20:28> Subjective - Date & Time of Evaluation Date of Evaluation: 08/02/16 Time of Evaluation: 08:00 - Subjective Subjective: Patient seen and examine at bedside, laying in bed in no acute distress. Awake, alert, oriented x 3. Reports tolerating PO diet, normal urine and stool output. Denies chest pain, dizziness, h/a, n or v. On 2L O2 via [place]. Has intermittent wet cough , has remained afebrile. Denies any concerns or complaints at this time. Objective - Vital Signs/Intake and Output Vital Signs (last 24 hours): Temp Pulse Resp BP Pulse Ox 97.6 F 90 19 121/70 97 08/02/16 16:11 08/02/16 16:11 08/02/16 16:11 08/02/16 16:11 08/02/16 16:11 - Medications Medications: Current Medications Acetaminophen (Tylenol 325mg Tab) 650 mg PO Q4H PRN PRN Reason: Fever >100.4 F Acetaminophen (Tylenol 325mg Tab) 650 mg PO Q4 PRN PRN Reason: Pain, Mild (1-3) Last Admin: 08/02/16 18:45 Dose: 650 mg Alprazolam (Xanax) 0.25 mg PO HS [facility] Stop: 08/07/16 22:01 Last Admin: 08/01/16 22:10 Dose: 0.25 mg Enoxaparin Sodium (Lovenox) 40 mg SC DAILY [facility] PRN Reason: Protocol Last Admin: 08/02/16 09:06 Dose: 40 mg Guaifenesin/Dextromethorphan (Robitussin Dm) 5 ml PO Q8H PRN PRN Reason: Cough Last Admin: 08/02/16 03:01 Dose: 5 ml Levothyroxine Sodium (Synthroid) 25 mcg PO DAILY@0630 [facility] Last Admin: 08/02/16 06:34 Dose: 25 mcg Pantoprazole Sodium (Protonix Ec Tab) 40 mg PO DAILY [facility] Last Admin: 08/02/16 09:06 Dose: 40 mg Vitamin B Complex/Vit C/Folic Acid (Nephro-Berkley) 1 tab PO DAILY [facility] Last Admin: 08/02/16 09:07 Dose: 1 tab - Labs Labs: PT 11.2 SECONDS (9.6-11.2) 07/31/16 05:45 INR 1.08 (0.92-1.08) 07/31/16 05:45 APTT 28.2 SECONDS (23.3-32.5) 07/31/16 05:45 - Constitutional Appears: Well, No Acute Distress - Head Exam Head Exam: ATRAUMATIC, NORMOCEPHALIC - Eye Exam Eye Exam: EOMI - ENT Exam ENT Exam: Mucous Membranes Moist - Neck Exam Neck Exam: Full ROM Assessment and Plan - Assessment and Plan (Free Text) Assessment: 80 yr old F admitted for SOB with PMHx of COPD (oxygen dependent), NIDDM, HTN, pancreatic mass, Arthritis, Anxiety, Mild CKD s/p HD (last on 07/2016) admitted for observation after she ran out of Oxygen supply at home. 1. COPD Oxygen dependent in no exacerbation -Afebrile, SOB no changed from baseline -Persistent leukocytosis noted in previous admission and has improved -O2 sat 97% this AM on room air, continue supplemental O2 2L via [place] PRN for SOB -Vital signs stable -CXR 08/01/16 s/p left thoracentesis: decrease in left pleural effusion, commensurate re-expansion of the left lung, no pnuemothorax identified -f/u ABG, walk test 2. Left pleural effusion -Improved s/p left thoracentesis: pleural fluid bloody appearance with increased WBC's -Pulmunology consult appreciated, Dr. Kasper: recommended V/Q scan, partial V/Q scan done (IV access lost) -Consider Echocardiogram -f/u PT/INR, CBC, CMP 3. Hx of HTN -Well controlled, BP 121/72 mmHg this AM -will continue to monitor, no medications at this time 4. Hx of DMII (diabetes mellitus, type 2) -no medications listed. -POC glucose 107mg/dL this AM - Accucheck ACHS 5. Hypothyroidism -Chronic, asymptomatic -Continue with Levothyroxine 25mcg PO QD -f/u TSH 6. Normocytic anemia -Improving compared with previous admission -Likely multifactorial 7. DVT prophylaxis -Lovenox 40 mg SC daily <Eddie Holm - Last Filed: 08/03/16 07:02> Objective - Vital Signs/Intake and Output Vital Signs (last 24 hours): Temp Pulse Resp BP Pulse Ox 97.5 F L 87 18 112/63 98 08/03/16 00:10 08/03/16 00:10 08/03/16 00:10 08/03/16 00:10 08/03/16 00:10 - Medications Medications: Current Medications Acetaminophen (Tylenol 325mg Tab) 650 mg PO Q4H PRN PRN Reason: Fever >100.4 F Acetaminophen (Tylenol 325mg Tab) 650 mg PO Q4 PRN PRN Reason: Pain, Mild (1-3) Last Admin: 08/02/16 18:45 Dose: 650 mg Alprazolam (Xanax) 0.25 mg PO HS [facility] Stop: 08/07/16 22:01 Last Admin: 08/02/16 21:25 Dose: 0.25 mg Enoxaparin Sodium (Lovenox) 40 mg SC DAILY [facility] PRN Reason: Protocol Last Admin: 08/02/16 09:06 Dose: 40 mg Guaifenesin/Dextromethorphan (Robitussin Dm) 5 ml PO Q8H PRN PRN Reason: Cough Last Admin: 08/03/16 03:21 Dose: 5 ml Levothyroxine Sodium (Synthroid) 25 mcg PO DAILY@0630 [facility] Last Admin: 08/03/16 06:47 Dose: 25 mcg Pantoprazole Sodium (Protonix Ec Tab) 40 mg PO DAILY [facility] Last Admin: 08/02/16 09:06 Dose: 40 mg Vitamin B Complex/Vit C/Folic Acid (Nephro-Berkley) 1 tab PO DAILY [facility] Last Admin: 08/02/16 09:07 Dose: 1 tab - Labs Labs: PT 11.2 SECONDS (9.6-11.2) 07/31/16 05:45 INR 1.08 (0.92-1.08) 07/31/16 05:45 APTT 28.2 SECONDS (23.3-32.5) 07/31/16 05:45 Attending/Attestation - Attestation I have personally seen and examined this patient.: Yes I have fully participated in the care of the patient.: Yes I have reviewed all pertinent clinical information, including history, physical exam and plan: Yes
[2016-08-03] MEDS: guaiFENesin DM 100 mg-10 mg/5 ml UD PO PRN ×2 (03:21→12:18)
[2016-08-03] MEDS: Levothyroxine 25 MCG TAB PO SCH (06:47)
[2016-08-03 08:22] LABS: HEMATOCRIT 31.4 % (34.0-47.0); MEAN CELL VOLUME 88.8 fl (81.0-99.0); MEAN CORPUSCULAR HEMOGLOBIN 27.6 pg (27.0-31.0); MEAN CORPUSCULAR HGB CONC 31.1 g/dL (33.0-37.0); RED CELL DISTRIBUTION WIDTH 18.8 % (11.5-14.5); WHITE BLOOD COUNT 10.6 K/uL (4.8-10.8)
[2016-08-03 08:31] LABS: BLOOD UREA NITROGEN 13 mg/dl (7-17); CALCIUM 7.8 mg/dL (8.4-10.2); CARBON DIOXIDE 25 mmol/L (22-30); CHLORIDE 108 mmol/L (98-107); GFR AFRICAN-AMERICAN > 60; GLUCOSE,RANDOM 80 mg/dL (65-105); POTASSIUM 3.6 MMOL/L (3.6-5.0); SODIUM 140 mmol/l (132-148); TOTAL PROTEIN 5.5 G/DL (6.3-8.2)
[2016-08-03 08:32] LABS: ALB/GLOB RATIO 0.7 (1.0-2.1); ALKALINE PHOSPHATASE 134 U/L (38-126); ALT/SGPT 22 U/L (9-52); AST/SGOT 18 U/L (14-36); BILIRUBIN,TOTAL 0.3 mg/dl (0.2-1.3)
[2016-08-03 09:06] LABS: THYROID STIMULATING HORMONE 0.78 mIU/ML (0.46-4.68)
[2016-08-03] MEDS: Enoxaparin 40 mg Syringe SC SCH (09:29)
[2016-08-03] MEDS: Pantoprazole 40 mg EC Tab PO SCH (09:30)
[2016-08-03] MEDS: Multivitamin Vitamin B Complex (Nephro-Vite) Tab PO SCH (09:30)
[2016-08-03 09:46] LABS: PARTIAL THROMBOPLASTIN TIME 31.1 Seconds (25.6-37.1)
--- NOTE | 2016-08-03 14:20 | CP.PCM.PN ---
Subjective - Date & Time of Evaluation Date of Evaluation: 08/03/16 Time of Evaluation: 14:16 - Subjective Subjective: Lying in bed comfortably. Has a congested cough with yellow sputum expectorated. Pleural fluid chemistries suggest exudate based on LDH. Oxygen saturation >92% at rest on O2. Will request overnight recorded SpO2 to see if there is significant nocturnal desaturation. CT chest requested for possible LLL pneumonia, visible now that the effusion is gone. Will begin empiric ceftriaxone in the meantime. Objective - Vital Signs/Intake and Output Vital Signs (last 24 hours): Temp Pulse Resp BP Pulse Ox 97.7 F 85 20 135/76 99 08/03/16 08:25 08/03/16 08:25 08/03/16 08:25 08/03/16 08:25 08/03/16 08:25 - Medications Medications: Current Medications Acetaminophen (Tylenol 325mg Tab) 650 mg PO Q4H PRN PRN Reason: Fever >100.4 F Acetaminophen (Tylenol 325mg Tab) 650 mg PO Q4 PRN PRN Reason: Pain, Mild (1-3) Last Admin: 08/02/16 18:45 Dose: 650 mg Alprazolam (Xanax) 0.25 mg PO HS [facility] Stop: 08/07/16 22:01 Last Admin: 08/02/16 21:25 Dose: 0.25 mg Enoxaparin Sodium (Lovenox) 40 mg SC DAILY [facility] PRN Reason: Protocol Last Admin: 08/03/16 09:29 Dose: 40 mg Guaifenesin/Dextromethorphan (Robitussin Dm) 5 ml PO Q8H PRN PRN Reason: Cough Last Admin: 08/03/16 12:18 Dose: 5 ml Ceftriaxone Sodium 1 gm/ (Sodium Chloride) 100 mls @ 100 mls/hr IVPB DAILY [facility] Levothyroxine Sodium (Synthroid) 25 mcg PO DAILY@0630 [facility] Last Admin: 08/03/16 06:47 Dose: 25 mcg Pantoprazole Sodium (Protonix Ec Tab) 40 mg PO DAILY [facility] Last Admin: 08/03/16 09:30 Dose: 40 mg Vitamin B Complex/Vit C/Folic Acid (Nephro-Berk[place]) 1 tab PO DAILY [facility] Last Admin: 08/03/16 09:30 Dose: 1 tab - Labs Labs: 08/03/16 07:20 08/03/16 07:20 PT 12.8 Seconds (9.8-13.1) 08/03/16 07:20 INR 1.1 (0.9-1.2) 08/03/16 07:20 APTT 31.1 Seconds (25.6-37.1) 08/03/16 07:20 Assessment and Plan (1) Pleural effusion on left Status: Acute
--- NOTE | 2016-08-03 15:30 | CT ---
PROCEDURE: CT Chest without contrast HISTORY: pleural effusion COMPARISON: None. TECHNIQUE: Contiguous axial images were obtained through the chest without intravenous contrast enhancement. Sagittal and coronal reconstructions were performed. Radiation dose (DLP): 643.22 mGy-cm. This CT exam was performed using one or more of the following dose reduction techniques: Automated exposure control, adjustment of the mA and/or kV according to patient size, and/or use of iterative reconstruction technique. FINDINGS: LUNGS: Extensive left lower lobe atelectasis. Soft tissue density or fluid seen within the left lower lobe bronchus. Consider the possibility of mucous plugging. Minimal right lower lobe compressive atelectasis. Probable calcified nodule right upper lobe (image thirty-nine, series 3). Evaluation limited due to respiratory motion artifact. Consistent with calcified granuloma. Additional tiny calcified granuloma in right upper lobe on image 35. 3 mm nodule in right lung apex for which no follow-up evaluation is required. No other pulmonary mass. MEDIASTINUM: Unremarkable thoracic aorta. No aneurysm. Mild cardiomegaly. Small pericardial effusion. Status post mitral valve replacement. There is dilatation of the main pulmonary artery to a diameter of approximately 3.5 cm. This may correlate with pulmonary arterial hypertension. No lymphadenopathy. Mild circumferential mural thickening of the distal esophagus, nonspecific. PLEURA: Moderate left and small right pleural effusion. No pneumothorax. BONES: Minimal compression deformity superior L1 vertebral endplate of indeterminate age. UPPER ABDOMEN: Fatty infiltration of the liver. OTHER FINDINGS: None. IMPRESSION: Moderate left and small right pleural effusion. Extensive left lower lobe atelectasis with fluid or soft tissue density in the proximal lower lobe bronchus. Consider the possibility of mucous plugging. Mild cardiomegaly. Mitral valve replacement. Dilated main pulmonary artery. Circumferential mural thickening distal thoracic esophagus, nonspecific. Fatty liver. Minimal compression deformity superior L1 vertebral endplate of indeterminate age.
--- NOTE | 2016-08-03 21:00 | CP.PCM.DIS ---
Provider - Provider Date of Admission: 07/31/16 20:04 Attending physician: Eddie Holm MD Primary care physician: Eddie Holm MD Consults: Pulmonology Dr. Kasper, Interventional Radiology Dr. Coelho Time Spent in preparation of Discharge (in minutes): 30 Hospital Course - Lab Results Lab Results: Most Recent Lab Values WBC 10.6 K/uL (4.8-10.8) 08/03/16 07:20 RBC 3.53 Mil/uL (3.80-5.20) L 08/03/16 07:20 Hgb 9.7 g/dL (12.0-16.0) L 08/03/16 07:20 Hct 31.4 % (34.0-47.0) L 08/03/16 07:20 MCV 88.8 fl (81.0-99.0) 08/03/16 07:20 MCH 27.6 pg (27.0-31.0) 08/03/16 07:20 MCHC 31.1 g/dL (33.0-37.0) L 08/03/16 07:20 RDW 18.8 % (11.5-14.5) H 08/03/16 07:20 Plt Count 290 K/uL (130-400) 08/03/16 07:20 MPV 8.0 fl (7.2-11.7) 07/31/16 05:45 Neut % (Auto) 76.5 % (50.0-75.0) H 07/31/16 05:45 Lymph % (Auto) 16.2 % (20.0-40.0) L 07/31/16 05:45 [place] % (Auto) 4.4 % (0.0-10.0) 07/31/16 05:45 Eos % (Auto) 2.2 % (0.0-4.0) 07/31/16 05:45 Baso % (Auto) 0.7 % (0.0-2.0) 07/31/16 05:45 Neut # 8.5 K/uL (1.8-7.0) H 07/31/16 05:45 Lymph # 1.8 K/uL (1.0-4.3) 07/31/16 05:45 [place] # 0.5 K/uL (0.0-0.8) 07/31/16 05:45 Eos # 0.2 K/uL (0.0-0.7) 07/31/16 05:45 Baso # 0.1 K/uL (0.0-0.2) 07/31/16 05:45 PT 12.8 Seconds (9.8-13.1) 08/03/16 07:20 INR 1.1 (0.9-1.2) 08/03/16 07:20 APTT 31.1 Seconds (25.6-37.1) 08/03/16 07:20 Sodium 140 mmol/l (132-148) 08/03/16 07:20 Potassium 3.6 MMOL/L (3.6-5.0) 08/03/16 07:20 Chloride 108 mmol/L (98-107) H 08/03/16 07:20 Carbon Dioxide 25 mmol/L (22-30) 08/03/16 07:20 Anion Gap 11 (10-20) 08/03/16 07:20 BUN 13 mg/dl (7-17) 08/03/16 07:20 Creatinine 0.9 mg/dL (0.7-1.2) 08/03/16 07:20 Est GFR ( Amer) > 60 08/03/16 07:20 Est GFR (Non-Af Amer) 60 08/03/16 07:20 POC Glucose (mg/dL) 109 mg/dL (65-110) 08/03/16 15:51 Random Glucose 80 mg/dL (65-105) 08/03/16 07:20 Lactic Acid 1.1 MMOL/L (0.7-2.1) 07/31/16 05:45 Calcium 7.8 mg/dL (8.4-10.2) L 08/03/16 07:20 Total Bilirubin 0.3 mg/dl (0.2-1.3) 08/03/16 07:20 AST 18 U/L (14-36) 08/03/16 07:20 ALT 22 U/L (9-52) 08/03/16 07:20 Alkaline Phosphatase 134 U/L (38-126) H 08/03/16 07:20 Lactate Dehydrogenase 667 U/L (313-618) H 08/03/16 10:55 Troponin I < 0.0120 ng/mL (0.00-0.120) 07/31/16 05:45 NT-Pro-B Natriuret Pep 20594 pg/ml (0-900) H 07/31/16 05:45 Total Protein 5.5 G/DL (6.3-8.2) L 08/03/16 07:20 Albumin 2.3 g/dL (3.5-5.0) L 08/03/16 07:20 Globulin 3.2 gm/dL (2.2-3.9) 08/03/16 07:20 Albumin/Globulin Ratio 0.7 (1.0-2.1) L 08/03/16 07:20 TSH 3rd Generation 0.78 mIU/ML (0.46-4.68) 08/03/16 07:20 Fluid Source Pleural/thoracentesi 08/01/16 17:38 Fluid Appearance Bloody (CLEAR) 08/01/16 17:38 Fluid WBC 1786.0 /mm3 (0.0-300.0) H 08/01/16 17:38 Fluid RBC 6706.0 /mm3 (0.0-0.0) H 08/01/16 17:38 Fluid Tot Cell Count 100 (0-0) H 08/01/16 17:38 Fluid Neutrophils 18.0 % (0-0) H 08/01/16 17:38 Fluid Lymphocytes 54.0 % (0-0) H 08/01/16 17:38 Fld Monocyte/Macrophag 28 % (0-0) H 08/01/16 17:38 Fluid Glucose 76 mg/dL (NONE ESTABLISHED) 08/01/16 17:38 Fluid Total Protein 2.5 g/dL (NONE ESTABLISHED) 08/01/16 17:38 Fluid LDH 481 IU (NONE ESTABLISHED) 08/01/16 17:38 Fluid Triglycerides 47 mg/dL (NONE ESTABLISHED) 08/01/16 17:38 Fluid Comment Cloudy 08/01/16 17:38 Influenza Typ A,B (EIA) Negative for flu a/b (NEGATIVE) 07/31/16 05:45 - Date & Time of H&P Date of H&P: 07/31/16 Time of H&P: 11:00 Discharge Exam - Head Exam Head Exam: ATRAUMATIC, NORMOCEPHALIC Discharge Plan - Follow Up Plan Condition: FAIR Disposition: HOME/ ROUTINE Referrals: Eddie Holm MD [Primary Care Provider] -
--- NOTE | 2016-08-03 21:04 | CP.PCM.PN ---
<Yvette Rivera - Last Filed: 08/03/16 21:01> Subjective - Date & Time of Evaluation Date of Evaluation: 08/03/16 Time of Evaluation: 08:00 - Subjective Subjective: Patient seen and examine at bedside, laying in bed in no acute distress. Patient states she refused bloodwork several times because she does not like to be stuck with needles. She is awake, alert, oriented x 3. Reports tolerating PO diet, normal urine and stool output. Denies chest pain, dizziness, h/a, n or v. On 2L O2 via NC. Has intermittent wet cough , has remained afebrile. Denies any concerns or complaints at this time. Objective - Vital Signs/Intake and Output Vital Signs (last 24 hours): Temp Pulse Resp BP Pulse Ox 97.7 F 84 20 110/69 98 08/03/16 15:54 08/03/16 15:54 08/03/16 15:54 08/03/16 15:54 08/03/16 15:54 - Medications Medications: Current Medications Acetaminophen (Tylenol 325mg Tab) 650 mg PO Q4H PRN PRN Reason: Fever >100.4 F Acetaminophen (Tylenol 325mg Tab) 650 mg PO Q4 PRN PRN Reason: Pain, Mild (1-3) Last Admin: 08/02/16 18:45 Dose: 650 mg Alprazolam (Xanax) 0.25 mg PO HS [facility] Stop: 08/07/16 22:01 Last Admin: 08/02/16 21:25 Dose: 0.25 mg Enoxaparin Sodium (Lovenox) 40 mg SC DAILY [facility] PRN Reason: Protocol Last Admin: 08/03/16 09:29 Dose: 40 mg Guaifenesin/Dextromethorphan (Robitussin Dm) 5 ml PO Q8H PRN PRN Reason: Cough Last Admin: 08/03/16 12:18 Dose: 5 ml Ceftriaxone Sodium 1 gm/ (Sodium Chloride) 100 mls @ 100 mls/hr IVPB DAILY [facility] Last Admin: 08/03/16 15:48 Dose: 100 mls/hr Levothyroxine Sodium (Synthroid) 25 mcg PO DAILY@0630 [facility] Last Admin: 08/03/16 06:47 Dose: 25 mcg Pantoprazole Sodium (Protonix Ec Tab) 40 mg PO DAILY [facility] Last Admin: 08/03/16 09:30 Dose: 40 mg Vitamin B Complex/Vit C/Folic Acid (Nephro-Berkley) 1 tab PO DAILY [facility] Last Admin: 08/03/16 09:30 Dose: 1 tab - Labs Labs: 08/03/16 07:20 08/03/16 07:20 PT 12.8 Seconds (9.8-13.1) 08/03/16 07:20 INR 1.1 (0.9-1.2) 08/03/16 07:20 APTT 31.1 Seconds (25.6-37.1) 08/03/16 07:20 - Constitutional Appears: Well, Non-toxic, No Acute Distress - Head Exam Head Exam: ATRAUMATIC, NORMOCEPHALIC - Eye Exam Eye Exam: EOMI, PERRL - ENT Exam ENT Exam: Mucous Membranes Moist - Neck Exam Neck Exam: Full ROM - Respiratory Exam Respiratory Exam: Decreased Breath Sounds (on 2L O2 via nasal cannula), Rhonchi (mild in left lower lobe) - GI/Abdominal Exam GI & Abdominal Exam: Soft (obese), Normal Bowel Sounds. absent: Tenderness - Extremities Exam Extremities Exam: absent: Calf Tenderness, Pedal Edema - Back Exam Back Exam: absent: CVA tenderness (L), CVA tenderness (R) - Neurological Exam Neurological Exam: Alert, Awake - Psychiatric Exam Psychiatric exam: Normal Affect, Normal Mood - Skin Skin Exam: Dry, Intact, Warm Assessment and Plan - Assessment and Plan (Free Text) Assessment: 80 yr old F admitted for SOB with PMHx of COPD (oxygen dependent), NIDDM, HTN, pancreatic mass, Arthritis, Anxiety, Mild CKD s/p HD (last on 07/2016) admitted for observation after she ran out of Oxygen supply at home. Today we will measure O2 sat while pt off supplemental O2 , attempt walk test and PT. 1. COPD Oxygen dependent in no exacerbation -Afebrile, SOB unchanged from baseline -pt O2 desaturation to 80's when off supplemental O2 -Persistent leukocytosis noted in previous admission and has improved -continue supplemental O2 2L via NC -Vital signs stable -CXR 08/01/16 s/p left thoracentesis: decrease in left pleural effusion, commensurate re-expansion of the left lung, no pnuemothorax identified -walk test -PT evaluation recommends: Subacute rehab ; possible TCU transfer tomorrow 2. Left pleural effusion -Improved s/p left thoracentesis: pleural fluid bloody appearance with increased WBC's, pleural fluid studies suggest exudate -Pulmunology consult appreciated, Dr. Kasper: begin empiric Ceftriaxone 1gm IVPB QD for possible LLL pneumonia -Consider Echocardiogram -PT/INR wnl, WBC wnl, CMP 3. Hx of HTN -Well controlled -will continue to monitor, no medications at this time 4. Hx of DMII (diabetes mellitus, type 2) -controlled, POC glucose 109 mg/dL this AM - Accucheck ACHS 5. Hypothyroidism -Chronic, controlled, asymptomatic -Continue with Levothyroxine 25mcg PO QD -TSH normal at 0.78 on 08/03/16 6. Normocytic anemia -H/H 9.731.4 this AM, pt asymptomatic, vital signs stable -Likely multifactorial -f/u H/H 7. DVT prophylaxis -Lovenox 40 mg SC daily <Eddie Holm - Last Filed: 08/06/16 07:05> Objective - Vital Signs/Intake and Output Vital Signs (last 24 hours): Temp Pulse Resp BP Pulse Ox 98.1 F 74 20 119/69 98 08/04/16 08:43 08/04/16 08:43 08/04/16 08:43 08/04/16 08:43 08/04/16 08:43 - Labs Labs: 08/03/16 07:20 08/03/16 07:20 PT 12.8 Seconds (9.8-13.1) 08/03/16 07:20 INR 1.1 (0.9-1.2) 08/03/16 07:20 APTT 31.1 Seconds (25.6-37.1) 08/03/16 07:20 Attending/Attestation - Attestation I have personally seen and examined this patient.: Yes I have fully participated in the care of the patient.: Yes I have reviewed all pertinent clinical information, including history, physical exam and plan: Yes
[2016-08-04] MEDS: guaiFENesin DM 100 mg-10 mg/5 ml UD PO PRN (02:17)
[2016-08-04] MEDS: Levothyroxine 25 MCG TAB PO SCH (06:29)
[2016-08-04] MEDS: Enoxaparin 40 mg Syringe SC SCH (08:38)
[2016-08-04] MEDS: Pantoprazole 40 mg EC Tab PO SCH (08:39)
[2016-08-04] MEDS: Multivitamin Vitamin B Complex (Nephro-Vite) Tab PO SCH (08:39)
[2016-08-04 08:44] VITALS: BP 119/69; PULSE 74; RESP 20; TEMP 98.1; O2SAT 98
--- NOTE | 2016-08-04 10:49 | CP.PCM.DIS ---
Provider - Provider Date of Admission: 07/31/16 20:04 Attending physician: Eddie Holm MD Primary care physician: Eddie Holm MD Consults: Pulmo: Time Spent in preparation of Discharge (in minutes): 60 Diagnosis - Discharge Diagnosis (1) COPD (chronic obstructive pulmonary disease) Status: Chronic Priority: Medium (2) Pleural effusion on left Status: Acute Priority: High (3) DMII (diabetes mellitus, type 2) Status: Chronic Priority: Medium (4) HTN (hypertension) Status: Chronic Priority: Medium (5) Hypothyroidism Status: Chronic Priority: Low Hospital Course - Lab Results Lab Results: Most Recent Lab Values WBC 10.6 K/uL (4.8-10.8) 08/03/16 07:20 RBC 3.53 Mil/uL (3.80-5.20) L 08/03/16 07:20 Hgb 9.7 g/dL (12.0-16.0) L 08/03/16 07:20 Hct 31.4 % (34.0-47.0) L 08/03/16 07:20 MCV 88.8 fl (81.0-99.0) 08/03/16 07:20 MCH 27.6 pg (27.0-31.0) 08/03/16 07:20 MCHC 31.1 g/dL (33.0-37.0) L 08/03/16 07:20 RDW 18.8 % (11.5-14.5) H 08/03/16 07:20 Plt Count 290 K/uL (130-400) 08/03/16 07:20 MPV 8.0 fl (7.2-11.7) 07/31/16 05:45 Neut % (Auto) 76.5 % (50.0-75.0) H 07/31/16 05:45 Lymph % (Auto) 16.2 % (20.0-40.0) L 07/31/16 05:45 [place] % (Auto) 4.4 % (0.0-10.0) 07/31/16 05:45 Eos % (Auto) 2.2 % (0.0-4.0) 07/31/16 05:45 Baso % (Auto) 0.7 % (0.0-2.0) 07/31/16 05:45 Neut # 8.5 K/uL (1.8-7.0) H 07/31/16 05:45 Lymph # 1.8 K/uL (1.0-4.3) 07/31/16 05:45 [place] # 0.5 K/uL (0.0-0.8) 07/31/16 05:45 Eos # 0.2 K/uL (0.0-0.7) 07/31/16 05:45 Baso # 0.1 K/uL (0.0-0.2) 07/31/16 05:45 PT 12.8 Seconds (9.8-13.1) 08/03/16 07:20 INR 1.1 (0.9-1.2) 08/03/16 07:20 APTT 31.1 Seconds (25.6-37.1) 08/03/16 07:20 Sodium 140 mmol/l (132-148) 08/03/16 07:20 Potassium 3.6 MMOL/L (3.6-5.0) 08/03/16 07:20 Chloride 108 mmol/L (98-107) H 08/03/16 07:20 Carbon Dioxide 25 mmol/L (22-30) 08/03/16 07:20 Anion Gap 11 (10-20) 08/03/16 07:20 BUN 13 mg/dl (7-17) 08/03/16 07:20 Creatinine 0.9 mg/dL (0.7-1.2) 08/03/16 07:20 Est GFR ( Amer) > 60 08/03/16 07:20 Est GFR (Non-Af Amer) 60 08/03/16 07:20 POC Glucose (mg/dL) 88 mg/dL (65-110) 08/04/16 05:01 Random Glucose 80 mg/dL (65-105) 08/03/16 07:20 Lactic Acid 1.1 MMOL/L (0.7-2.1) 07/31/16 05:45 Calcium 7.8 mg/dL (8.4-10.2) L 08/03/16 07:20 Total Bilirubin 0.3 mg/dl (0.2-1.3) 08/03/16 07:20 AST 18 U/L (14-36) 08/03/16 07:20 ALT 22 U/L (9-52) 08/03/16 07:20 Alkaline Phosphatase 134 U/L (38-126) H 08/03/16 07:20 Lactate Dehydrogenase 667 U/L (313-618) H 08/03/16 10:55 Troponin I < 0.0120 ng/mL (0.00-0.120) 07/31/16 05:45 NT-Pro-B Natriuret Pep 83189 pg/ml (0-900) H 07/31/16 05:45 Total Protein 5.5 G/DL (6.3-8.2) L 08/03/16 07:20 Albumin 2.3 g/dL (3.5-5.0) L 08/03/16 07:20 Globulin 3.2 gm/dL (2.2-3.9) 08/03/16 07:20 Albumin/Globulin Ratio 0.7 (1.0-2.1) L 08/03/16 07:20 TSH 3rd Generation 0.78 mIU/ML (0.46-4.68) 08/03/16 07:20 Fluid Source Pleural/thoracentesi 08/01/16 17:38 Fluid Appearance Bloody (CLEAR) 08/01/16 17:38 Fluid WBC 1786.0 /mm3 (0.0-300.0) H 08/01/16 17:38 Fluid RBC 6706.0 /mm3 (0.0-0.0) H 08/01/16 17:38 Fluid Tot Cell Count 100 (0-0) H 08/01/16 17:38 Fluid Neutrophils 18.0 % (0-0) H 08/01/16 17:38 Fluid Lymphocytes 54.0 % (0-0) H 08/01/16 17:38 Fld Monocyte/Macrophag 28 % (0-0) H 08/01/16 17:38 Fluid Glucose 76 mg/dL (NONE ESTABLISHED) 08/01/16 17:38 Fluid Total Protein 2.5 g/dL (NONE ESTABLISHED) 08/01/16 17:38 Fluid LDH 481 IU (NONE ESTABLISHED) 08/01/16 17:38 Fluid Triglycerides 47 mg/dL (NONE ESTABLISHED) 08/01/16 17:38 Fluid Comment Cloudy 08/01/16 17:38 Influenza Typ A,B (EIA) Negative for flu a/b (NEGATIVE) 07/31/16 05:45 - Hospital Course Hospital Course: 81 yr old female with PMHx of COPD (oxygen dependent), NIDDM, HTN, pancreatic mass, Arthritis, Anxiety, Mild CKD s/p HD (last on 07/2016) admitted for SOB and she ran out of Oxygen tanksupply at home. Patient went s/p left thoracentesis and removed 700 cc. Patient continued to complaints of SOB especially without oxygen at bed rest where sat O2 went down to below 84%. Patient was monitor continuous sat O2 overnight and CT chest showed for possible LLL pneumonia, visible now that the effusion is gone. Patient is on ceftriaxone antibiotic. Patient was seen and examined at bedside today. Patient was stable to discharge to TCU for patient's deconditioning. Discharge Exam - Head Exam Head Exam: ATRAUMATIC, NORMOCEPHALIC - Eye Exam Eye Exam: EOMI, PERRL Pupil Exam: NORMAL ACCOMODATION - ENT Exam ENT Exam: Normal Exam - Neck Exam Neck exam: Normal Inspection - Respiratory Exam Respiratory Exam: Decreased Breath Sounds, Rhonchi. absent: Accessory Muscle Use, Chest Wall Tenderness, Prolonged Expiratory Phase, NORMAL BREATHING PATTERN - Cardiovascular Exam Cardiovascular Exam: REGULAR RHYTHM, RRR, +S1, +S2 - GI/Abdominal Exam GI & Abdominal Exam: Normal Bowel Sounds, Soft - Extremities Exam Extremities exam: pedal pulses present - Back Exam Back exam: NORMAL INSPECTION - Neurological Exam Neurological exam: Alert, Oriented x3 - Psychiatric Exam Psychiatric exam: Anxious - Skin Skin Exam: Intact, Normal Color, Warm Discharge Plan - Follow Up Plan Condition: FAIR Disposition: REHAB FACILITY/REHAB UNIT Instructions: Thoracentesis (DC), Dyspnea (GEN) Additional Instructions: discharge to TCU Referrals: Eddie Holm MD [Primary Care Provider] -
[2016-08-04] MEDS ORDERED: Docusate-Senna 50 mg-8.6 mg Tab PO ONE (11:53)
== END 2016-08-04 14:26 | DRG 188 ==
LOC: H.ER 04:34 → H.ERHOLD 05:14 → OBSVTOIN 20:04 → H.MEDSURG1 21:45
PROVIDERS: ADMIT Family Medicine; ATTEND Family Medicine
PROC: 0W9B30Z Drainage of Left Pleural Cavity with Drainage Device, Percutaneous Approach (ICD-10-PCS; principal; 2016-08-01)
DX: J90 Pleural effusion, not elsewhere classified (principal); J44.9 Chronic obstructive pulmonary disease, unspecified; E11.22 Type 2 diabetes mellitus with diabetic chronic kidney disease; F03.90 Unspecified dementia, unspecified severity, without behavioral disturbance, psychotic disturbance, mood disturbance, and anxiety; Z99.81 Dependence on supplemental oxygen; D64.9 Anemia, unspecified; E03.9 Hypothyroidism, unspecified; I12.9 Hypertensive chronic kidney disease with stage 1 through stage 4 chronic kidney disease, or unspecified chronic kidney disease; N18.9 Chronic kidney disease, unspecified; I25.10 Atherosclerotic heart disease of native coronary artery without angina pectoris; E78.00 Pure hypercholesterolemia, unspecified; M19.90 Unspecified osteoarthritis, unspecified site; F41.9 Anxiety disorder, unspecified; K86.9 Disease of pancreas, unspecified; F32.9 Major depressive disorder, single episode, unspecified; Z87.01 Personal history of pneumonia (recurrent)

== ENCOUNTER 2016-08-03 17:41 | Inpatient (IN) | payer OTHER, MEDICAID ==
[2016-08-04 14:29] VITALS: BMI 27.4
[2016-08-04] MEDS: guaiFENesin DM 100 mg-10 mg/5 ml UD PO PRN (21:52)
[2016-08-05] MEDS: guaiFENesin DM 100 mg-10 mg/5 ml UD PO PRN (04:58)
[2016-08-05] MEDS: Levothyroxine 25 MCG TAB PO SCH (05:51)
[2016-08-05] MEDS: Enoxaparin 40 mg Syringe SC SCH (11:33)
[2016-08-05] MEDS: Multivitamin Vitamin B Complex (Nephro-Vite) Tab PO SCH (11:34)
[2016-08-05] MEDS: Pantoprazole 40 mg EC Tab PO SCH (11:34)
--- NOTE | 2016-08-05 16:50 | CP.PCM.HP ---
History of Present Illness - History of Present Illness History of Present Illness: 81 yr old F with admitted to TCU for acute rehab and medical optimization d/t deconditioning. Patient was transfered from the floor where she was admitted for SOB and found to have left pleural effusion and is s/p left thoracentesis with removal of 700cc, with visible LLL pneumonia currently treated with Ceftriaxone, and O2 destauration to 80's when off of supplemental O2. Patient has PMHx of COPD (oxygen dependent), NIDDM, HTN, pancreatic mass, Arthritis, Anxiety, Mild CKD s/p HD (last on 07/2016). Patient has complaint of SOB especially when off of supplemental O2, denies chest pain, fevers, chills, nausea, vomiting, urinary symptoms, diarrheas, abdominal pain or other complains. She is tolerating PO diet, having normal urine and stool output. PMD: Dr Holm PMH: COPD (oxygen dependent), Diabetes, HTN, pancreatic mass, Arthritis, Anxiety , Dialysis (//Sat), Hypothyroid PSH: Cholecystectomy Present on Admission - Present on Admission Any Indicators Present on Admission: No History of DVT/PE: No History of Uncontrolled Diabetes: Yes Urinary Catheter: No Decubitus Ulcer Present: No Review of Systems - Review of Systems All systems: reviewed and no additional remarkable complaints except (what is stated in HPI) Past Patient History - Past Medical History & Family History Past Medical History?: Yes - Past Social History Smoking Status: Never Smoked - CARDIAC Hx Hypercholesterolemia: Yes Hx Hypertension: Yes - PULMONARY Hx Chronic Obstructive Pulmonary Disease (COPD): Yes Hx Pneumonia: Yes - NEUROLOGICAL Hx Dementia: Yes - HEENT Hx HEENT Problems: No - RENAL Hx Chronic Kidney Disease: Yes Hx Dialysis: Yes - ENDOCRINE/METABOLIC Hx Diabetes Mellitus Type 2: Yes Hx Hypothyroidism: Yes - HEMATOLOGICAL/ONCOLOGICAL Hx Blood Disorders: No - INTEGUMENTARY Hx Dermatological Problems: No - MUSCULOSKELETAL/RHEUMATOLOGICAL Hx Arthritis: Yes Hx Falls: No - GASTROINTESTINAL Hx Gastrointestinal Disorders: No - GENITOURINARY/GYNECOLOGICAL Hx Genitourinary Disorders: Yes - PSYCHIATRIC Hx Anxiety: Yes Hx Depression: Yes Hx Substance Use: No - SURGICAL HISTORY Hx Cholecystectomy: Yes - ANESTHESIA Hx Anesthesia: Yes Hx Anesthesia Reactions: No Hx Malignant Hyperthermia: No Meds Allergies/Adverse Reactions: Allergies Allergy/AdvReac Type Severity Reaction Status Date / Time ambien AdvReac Severe HEADACHE Uncoded 05/11/16 17:37 Physical Exam - Constitutional Appears: No Acute Distress, Older Than Stated Age - Head Exam Head Exam: ATRAUMATIC, NORMOCEPHALIC - Eye Exam Eye Exam: EOMI, PERRL - ENT Exam ENT Exam: Mucous Membranes Moist - Neck Exam Neck exam: Positive for: Full Rom. Negative for: Lymphadenopathy - Respiratory Exam Respiratory Exam: Decreased Breath Sounds (on 2L O2), Rhonchi (mild) - Cardiovascular Exam Cardiovascular Exam: REGULAR RHYTHM, +S1, +S2 - GI/Abdominal Exam GI & Abdominal Exam: Normal Bowel Sounds, Soft (obese). absent: Distended, Tenderness - Extremities Exam Extremities exam: Positive for: full ROM (functional). Negative for: calf tenderness, pedal edema - Back Exam Back exam: absent: CVA tenderness (L), CVA tenderness (R) - Neurological Exam Neurological exam: Alert, CN II-XII Intact - Psychiatric Exam Psychiatric exam: Normal Affect, Normal Mood - Skin Skin Exam: Dry, Intact Results - Vital Signs Recent Vital Signs: Last Vital Signs Temp 98.2 F 08/05/16 16:32 Pulse 94 H 08/05/16 16:32 Resp 20 08/05/16 16:32 BP 136/74 08/05/16 16:32 Pulse Ox 99 08/05/16 16:32 - Labs Labs: Laboratory Results - last 24 hr 08/05/16 10:54 POC Glucose (mg/dL) 89 Assessment & Plan - Assessment and Plan (Free Text) Assessment: 81 yr old F with admitted to TCU for acute rehab and medical optimization d/t deconditioning. Patient was transfered from the floor where she was admitted for SOB and found to have left pleural effusion and is s/p left thoracentesis with removal of 700cc, with visible LLL pneumonia currently treated with Ceftriaxone, and O2 destauration to 80's when off of supplemental O2. Patient has PMHx of COPD (oxygen dependent), NIDDM, HTN, pancreatic mass, Arthritis, Anxiety, Mild CKD s/p HD (last on 07/2016). Patient has complaint of SOB especially when off of supplemental O2, has no other complaints at this time. Patient stable, receiving physical therapy, comfortable on supplemental O2 . 1. COPD Oxygen dependent in no exacerbation -Afebrile, SOB unchanged from baseline -pt O2 desaturation to 80's when off supplemental O2 -Persistent leukocytosis noted in previous admission and has improved -continue supplemental O2 2L via NC -Vital signs stable -CXR 08/01/16 s/p left thoracentesis: decrease in left pleural effusion, commensurate re-expansion of the left lung, no pnuemothorax identified -CT chest 08/03/16: moderate left and small right pleural effusion -PT evaluation appreciated: PT 3-5 days/week 2. Left pleural effusion -Improved s/p left thoracentesis: pleural fluid bloody appearance with increased WBC's, pleural fluid studies suggest exudate -Pulmonology consult appreciated, Dr. Kasper: begin empiric Ceftriaxone 1gm IVPB QD for possible LLL pneumonia -Consider Echocardiogram -PT/INR wnl, WBC wnl, CMP 3. Hx of HTN -Well controlled -will continue to monitor, no medications at this time 4. Hx of DMII (diabetes mellitus, type 2) -controlled, POC glucose 83mg/dL this AM - Accucheck ACHS 5. Hypothyroidism -Chronic, controlled, asymptomatic -Continue with Levothyroxine 25mcg PO QD -TSH normal at 0.78 on 08/03/16 6. Normocytic anemia -H/H 9.731.4 this AM, pt asymptomatic, vital signs stable -Likely multifactorial -f/u H/H 7. DVT prophylaxis -Lovenox 40 mg SC daily
[2016-08-06] MEDS: guaiFENesin DM 100 mg-10 mg/5 ml UD PO PRN ×2 (01:24→21:11)
[2016-08-06] MEDS: Levothyroxine 25 MCG TAB PO SCH (05:33)
[2016-08-06] MEDS: Enoxaparin 40 mg Syringe SC SCH (08:07)
[2016-08-06] MEDS: Pantoprazole 40 mg EC Tab PO SCH (08:08)
[2016-08-06] MEDS: Multivitamin Vitamin B Complex (Nephro-Vite) Tab PO SCH (08:08)
[2016-08-06 09:09] LABS: HEMATOCRIT 31.4 % (34.0-47.0); MEAN CELL VOLUME 89.6 fl (81.0-99.0); MEAN CORPUSCULAR HGB CONC 31.2 g/dL (33.0-37.0); WHITE BLOOD COUNT 12.6 K/uL (4.8-10.8)
[2016-08-06 09:37] LABS: ALKALINE PHOSPHATASE 115 U/L (38-126); ALT/SGPT 23 U/L (9-52); AST/SGOT 24 U/L (14-36); BILIRUBIN,TOTAL 0.2 mg/dl (0.2-1.3); BLOOD UREA NITROGEN 12 mg/dl (7-17); CARBON DIOXIDE 25 mmol/L (22-30); CHLORIDE 110 mmol/L (98-107); GFR AFRICAN-AMERICAN > 60; GLUCOSE,RANDOM 97 mg/dL (65-105); POTASSIUM 3.9 MMOL/L (3.6-5.0); SODIUM 140 mmol/l (132-148); TOTAL PROTEIN 5.1 G/DL (6.3-8.2)
[2016-08-06 09:41] LABS: ALB/GLOB RATIO 0.8 (1.0-2.1)
--- NOTE | 2016-08-06 10:52 | CP.PCM.CON ---
History of Present Illness - History of Present Illness History of Present Illness: This 31-year-old [place]ish speaking female was initially admitted to the hospital because of shortness of breath. She was found to have a moderately large pleural effusion on the left and a small pleural effusion on the right and underwent thoracentesis of the left fluid. Chemical results from this showed an exudate which was culture negative without any evidence of malignant cells seen on cytology. She was found to have segmental collapse of left lower lobe and was placed on antibiotic therapy and discharged to transitional care for continued antibiotic treatment. She continued to have congested cough and dyspnea on exertion subsequent to discharge. Past Patient History - Past Medical History & Family History Past Medical History?: Yes - Past Social History Smoking Status: Never Smoked Chewing Tobacco Use: No Cigar Use: No Alcohol: None Drugs: Denies - CARDIAC Hx Hypercholesterolemia: Yes Hx Hypertension: Yes - PULMONARY Hx Chronic Obstructive Pulmonary Disease (COPD): Yes Hx Pneumonia: Yes - NEUROLOGICAL Hx Dementia: Yes - HEENT Hx HEENT Problems: No - RENAL Hx Chronic Kidney Disease: Yes Hx Dialysis: Yes - ENDOCRINE/METABOLIC Hx Diabetes Mellitus Type 2: Yes Hx Hypothyroidism: Yes - HEMATOLOGICAL/ONCOLOGICAL Hx Blood Disorders: No - INTEGUMENTARY Hx Dermatological Problems: No - MUSCULOSKELETAL/RHEUMATOLOGICAL Hx Arthritis: Yes Hx Falls: No - GASTROINTESTINAL Hx Gastrointestinal Disorders: No - GENITOURINARY/GYNECOLOGICAL Hx Genitourinary Disorders: Yes - PSYCHIATRIC Hx Anxiety: Yes Hx Depression: Yes Hx Substance Use: No - SURGICAL HISTORY Hx Cholecystectomy: Yes - ANESTHESIA Hx Anesthesia: Yes Hx Anesthesia Reactions: No Hx Malignant Hyperthermia: No Meds Allergies/Adverse Reactions: Allergies Allergy/AdvReac Type Severity Reaction Status Date / Time ambien AdvReac Severe HEADACHE Uncoded 05/11/16 17:37 - Medications Medications: Current Medications Acetaminophen (Tylenol 325mg Tab) 650 mg PO Q4 PRN PRN Reason: Pain, Mild (1-3) Acetylcysteine (Mucomyst 10% 4ml) 2 ml IH RBID [facility] Albuterol Sulfate (Albuterol 0.083% Inhal Lesli (2.5 Mg/3 Ml) Ud) 2.5 mg INH RBID [facility] Alprazolam (Xanax) 0.25 mg PO HS [facility] Stop: 08/11/16 22:01 Last Admin: 08/05/16 21:14 Dose: 0.25 mg Enoxaparin Sodium (Lovenox) 40 mg SC DAILY [facility] PRN Reason: Protocol Last Admin: 08/06/16 08:07 Dose: 40 mg Guaifenesin/Dextromethorphan (Robitussin Dm) 5 ml PO Q8 PRN PRN Reason: Cough Last Admin: 08/06/16 01:24 Dose: 5 ml Ceftriaxone Sodium 1 gm/ (Sodium Chloride) 100 mls @ 100 mls/hr IVPB DAILY@ 1700 [facility] Last Admin: 08/05/16 16:51 Dose: 100 mls/hr Levothyroxine Sodium (Synthroid) 25 mcg PO DAILY@0630 [facility] Last Admin: 08/06/16 05:33 Dose: 25 mcg Pantoprazole Sodium (Protonix Ec Tab) 40 mg PO DAILY [facility] Last Admin: 08/06/16 08:08 Dose: 40 mg Vitamin B Complex/Vit C/Folic Acid (Nephro-Berkley) 1 tab PO DAILY [facility] Last Admin: 08/06/16 08:08 Dose: 1 tab Physical Exam - Additional Findings Additional findings: Elderly female, well nourished and well developed, coughing non-productively during exam. Pharynx is pink and moist, no exudates. Nares patent bilaterally. neck supple and trachea midline, no visible JVD. Dullness on percussion of the left lung base posteriorly. Absent VTF same area. Breath sounds are present bilaterally, diminished bilaterally, absent in the left base. No audible wheezing, scattered sonorous rhonchi in LL's. No bronchial breath sounds. Heart sounds are distant, rhythm is regular with PHB's. Abdomen is soft with NABS. No dependant edema, no cyanosis, no calf tenderness. Results - Vital Signs Recent Vital Signs: Last Vital Signs Temp 97.9 F 08/06/16 08:05 Pulse 94 H 08/06/16 08:05 Resp 18 08/06/16 08:05 BP 146/74 08/06/16 08:05 Pulse Ox 97 08/06/16 08:05 - Labs Result Diagrams: 08/09/16 07:26 08/08/16 06:41 Labs: Laboratory Results - last 24 hr 08/05/16 08/05/16 08/06/16 10:54 20:16 05:14 WBC RBC Hgb Hct MCV MCH MCHC RDW Plt Count Sodium Potassium Chloride Carbon Dioxide Anion Gap BUN Creatinine Est GFR ( Amer) Est GFR (Non-Af Amer) POC Glucose (mg/dL) 89 128 H 80 Random Glucose Calcium Total Bilirubin AST ALT Alkaline Phosphatase Total Protein Albumin Globulin Albumin/Globulin Ratio 08/06/16 08/06/16 08:20 08:20 WBC 12.6 H RBC 3.51 L Hgb 9.8 L Hct 31.4 L MCV 89.6 MCH 28.0 MCHC 31.2 L RDW 18.0 H Plt Count 219 Sodium 140 Potassium 3.9 Chloride 110 H Carbon Dioxide 25 Anion Gap 9 L BUN 12 Creatinine 0.8 Est GFR ( Amer) > 60 Est GFR (Non-Af Amer) > 60 POC Glucose (mg/dL) Random Glucose 97 Calcium 8.0 L Total Bilirubin 0.2 AST 24 ALT 23 Alkaline Phosphatase 115 Total Protein 5.1 L Albumin 2.2 L Globulin 2.9 Albumin/Globulin Ratio 0.8 L Assessment & Plan (1) Atelectasis Status: Acute Priority: High (2) Pleural effusion Status: Acute Priority: High - Assessment and Plan (Free Text) Assessment: Obstructed LLL bronchus, possibly representing impacted airways secretions. If she cannot expectorate and clear the airway she would need flexible bronchoscopy to evaluate for endobronchial process. I explained the current situation with the patient's daughter who is POA. - Date & Time Date: 08/06/16 Time: 10:49
[2016-08-06] MEDS: Acetylcysteine 10% 4 ML IH SCH ×3 (11:15→19:01)
[2016-08-06] MEDS: Albuterol 0.083% Inhal Sol (2.5 mg/3 mL) UD INH SCH ×3 (11:15→19:01)
--- NOTE | 2016-08-06 18:00 | CP.PCM.PN ---
<Yvette Rivera - Last Filed: 08/06/16 17:53> Subjective - Date & Time of Evaluation Date of Evaluation: 08/06/16 Time of Evaluation: 08:00 - Subjective Subjective: Patient seen and examined at bedside, reports she has been feeling intermittently SOB and chest congestion despite being on supplemental O2 via nasal cannula. Patient also reports staff has been good to her but she does not like to be alone in her room. Discussed/explained to patient the importance of participating in physical therapy and the need for our re-assessment of her O2 needs. Patient has no other concerns or complaints at this time. Objective - Vital Signs/Intake and Output Vital Signs (last 24 hours): Temp Pulse Resp BP Pulse Ox 97.5 F L 94 H 20 134/64 100 08/06/16 16:07 08/06/16 16:07 08/06/16 16:07 08/06/16 16:07 08/06/16 16:07 - Medications Medications: Current Medications Acetaminophen (Tylenol 325mg Tab) 650 mg PO Q4 PRN PRN Reason: Pain, Mild (1-3) Acetylcysteine (Mucomyst 10% 4ml) 2 ml IH RBID [facility] Last Admin: 08/06/16 12:45 Dose: 2 ml Albuterol Sulfate (Albuterol 0.083% Inhal Lesli (2.5 Mg/3 Ml) Ud) 2.5 mg INH RBID [facility] Last Admin: 08/06/16 12:45 Dose: 2.5 mg Alprazolam (Xanax) 0.25 mg PO HS [facility] Stop: 08/11/16 22:01 Last Admin: 08/05/16 21:14 Dose: 0.25 mg Enoxaparin Sodium (Lovenox) 40 mg SC DAILY [facility] PRN Reason: Protocol Last Admin: 08/06/16 08:07 Dose: 40 mg Guaifenesin/Dextromethorphan (Robitussin Dm) 5 ml PO Q8 PRN PRN Reason: Cough Last Admin: 08/06/16 01:24 Dose: 5 ml Ceftriaxone Sodium 1 gm/ (Sodium Chloride) 100 mls @ 100 mls/hr IVPB DAILY@ 1700 [facility] Last Admin: 08/06/16 17:19 Dose: 100 mls/hr Levothyroxine Sodium (Synthroid) 25 mcg PO DAILY@0630 [facility] Last Admin: 08/06/16 05:33 Dose: 25 mcg Pantoprazole Sodium (Protonix Ec Tab) 40 mg PO DAILY [facility] Last Admin: 08/06/16 08:08 Dose: 40 mg Vitamin B Complex/Vit C/Folic Acid (Nephro-Berkley) 1 tab PO DAILY [facility] Last Admin: 08/06/16 08:08 Dose: 1 tab - Labs Labs: 08/06/16 08:20 08/06/16 08:20 - Constitutional Appears: Older Than Stated Age (obese), Agitated (mild) - Head Exam Head Exam: ATRAUMATIC, NORMOCEPHALIC - Eye Exam Eye Exam: EOMI, PERRL - ENT Exam ENT Exam: Mucous Membranes Moist - Neck Exam Neck Exam: Full ROM. absent: Lymphadenopathy - Respiratory Exam Respiratory Exam: Rhonchi (mild diffuse, intermittent wet ), NORMAL BREATHING PATTERN (on 2L supplemental O2 via nasal cannula) - Cardiovascular Exam Cardiovascular Exam: REGULAR RHYTHM, +S1, +S2 - GI/Abdominal Exam GI & Abdominal Exam: Soft (obese), Normal Bowel Sounds. absent: Tenderness - Extremities Exam Extremities Exam: absent: Calf Tenderness, Pedal Edema - Back Exam Back Exam: absent: CVA tenderness (L), CVA tenderness (R) - Neurological Exam Neurological Exam: Alert, Awake, CN II-XII Intact - Psychiatric Exam Psychiatric exam: Agitated (mild), Anxious (mild) - Skin Skin Exam: Dry, Intact, Warm Assessment and Plan - Assessment and Plan (Free Text) Assessment: 81 yr old F admitted to TCU for acute rehab and medical optimization d/t deconditioning. Patient was transfered from the floor where she was admitted for SOB and found to have left pleural effusion and is s/p left thoracentesis with removal of 700cc, with visible LLL pneumonia currently treated with Ceftriaxone, and O2 destauration to 80's when off of supplemental O2. Patient has PMHx of COPD (oxygen dependent), NIDDM, HTN, pancreatic mass, Arthritis, Anxiety, Mild CKD s/p HD (last on 07/2016). Patient has complaint of SOB especially when off of supplemental O2, has no other complaints at this time. Patient stable, receiving physical therapy, intermittently experiences SOB though has normal O2 sat while on O2 via nasal cannula. 1. COPD Oxygen dependent in no exacerbation -Afebrile, SOB unchanged from baseline -pt O2 desaturation to 80's when off supplemental O2 -Persistent leukocytosis noted in previous admission is stable -continue supplemental O2 2L via NC -Vital signs stable -CXR 08/01/16 s/p left thoracentesis: decrease in left pleural effusion, commensurate re-expansion of the left lung, no pnuemothorax identified -CT chest 08/03/16: moderate left and small right pleural effusion -daily PT 2. Left pleural effusion -Improved s/p left thoracentesis: pleural fluid bloody appearance with increased WBC's, pleural fluid studies suggest exudate -Pulmonology consult appreciated, Dr. Kasper:Ceftriaxone 1gm IVPB QD , recommends flexible bronchoscopy to evaluate endobronchial process -will discuss/obtain consent from daughter in AM for Flexible Bronchoscopy 3. Hx of HTN -Well controlled -will continue to monitor, no medications at this time 4. Hx of DMII (diabetes mellitus, type 2) -controlled, POC glucose 83mg/dL this AM - Accucheck ACHS 5. Hypothyroidism -Chronic, controlled, asymptomatic -Continue with Levothyroxine 25mcg PO QD -TSH normal at 0.78 on 08/03/16 6. Normocytic anemia -chronic, stable, pt asymptomatic, vital signs stable -H/H 9.8/31.4 this AM -f/u H/H 7. DVT prophylaxis -Lovenox 40 mg SC daily <Eddie Holm - Last Filed: 08/06/16 18:49> Objective - Vital Signs/Intake and Output Vital Signs (last 24 hours): Temp Pulse Resp BP Pulse Ox 97.5 F L 94 H 20 134/64 100 08/06/16 16:07 08/06/16 16:07 08/06/16 16:07 08/06/16 16:07 08/06/16 16:07 - Medications Medications: Current Medications Acetaminophen (Tylenol 325mg Tab) 650 mg PO Q4 PRN PRN Reason: Pain, Mild (1-3) Acetylcysteine (Mucomyst 10% 4ml) 2 ml IH RBID [facility] Last Admin: 08/06/16 12:45 Dose: 2 ml Albuterol Sulfate (Albuterol 0.083% Inhal Lesli (2.5 Mg/3 Ml) Ud) 2.5 mg INH RBID [facility] Last Admin: 08/06/16 12:45 Dose: 2.5 mg Alprazolam (Xanax) 0.25 mg PO HS [facility] Stop: 08/11/16 22:01 Last Admin: 08/05/16 21:14 Dose: 0.25 mg Enoxaparin Sodium (Lovenox) 40 mg SC DAILY [facility] PRN Reason: Protocol Last Admin: 08/06/16 08:07 Dose: 40 mg Guaifenesin/Dextromethorphan (Robitussin Dm) 5 ml PO Q8 PRN PRN Reason: Cough Last Admin: 08/06/16 01:24 Dose: 5 ml Ceftriaxone Sodium 1 gm/ (Sodium Chloride) 100 mls @ 100 mls/hr IVPB DAILY@ 1700 [facility] Last Admin: 08/06/16 17:19 Dose: 100 mls/hr Levothyroxine Sodium (Synthroid) 25 mcg PO DAILY@0630 [facility] Last Admin: 08/06/16 05:33 Dose: 25 mcg Pantoprazole Sodium (Protonix Ec Tab) 40 mg PO DAILY [facility] Last Admin: 08/06/16 08:08 Dose: 40 mg Vitamin B Complex/Vit C/Folic Acid (Nephro-Berkley) 1 tab PO DAILY [facility] Last Admin: 08/06/16 08:08 Dose: 1 tab - Labs Labs: 08/06/16 08:20 08/06/16 08:20 Attending/Attestation - Attestation I have personally seen and examined this patient.: Yes I have fully participated in the care of the patient.: Yes I have reviewed all pertinent clinical information, including history, physical exam and plan: Yes
[2016-08-06] MEDS ORDERED: Povidone Iodine Topical 10% Sol ONE (18:49)
[2016-08-06] MEDS ORDERED: Lidocaine 1% (10 ml) Inj IAA ONE (19:15)
[2016-08-06] MEDS ORDERED: Dexamethasone 4 mg/1 ml IAA ONE (19:15)
[2016-08-06] MEDS ORDERED: Lidocaine 1% Inj (20ml) IJ ONE (19:15)
[2016-08-06] MEDS ORDERED: Triamcinolone Acetonide 40 mg/mL Inj IAA ONE (19:15)
--- NOTE | 2016-08-06 19:24 | CP.PCM.CON ---
History of Present Illness - History of Present Illness History of Present Illness: Dr Moon PMR consultation on Vanessa May, born 1935 who has been admitted to [facility] with severe pleural effusion and underwent thoracentesis of 700cc. still with wet cough. seen by pulmonology and may need scope has severe long standing bilateral knee pain, usually sees Dr Lucas, but not yet able to get there and daughter wants injections done now. severe djd Past Patient History - Past Medical History & Family History Past Medical History?: Yes - Past Social History Smoking Status: Never Smoked - CARDIAC Hx Hypercholesterolemia: Yes Hx Hypertension: Yes - PULMONARY Hx Chronic Obstructive Pulmonary Disease (COPD): Yes Hx Pneumonia: Yes - NEUROLOGICAL Hx Dementia: Yes - HEENT Hx HEENT Problems: No - RENAL Hx Chronic Kidney Disease: Yes Hx Dialysis: Yes - ENDOCRINE/METABOLIC Hx Diabetes Mellitus Type 2: Yes Hx Hypothyroidism: Yes - HEMATOLOGICAL/ONCOLOGICAL Hx Blood Disorders: No - INTEGUMENTARY Hx Dermatological Problems: No - MUSCULOSKELETAL/RHEUMATOLOGICAL Hx Arthritis: Yes Hx Falls: No - GASTROINTESTINAL Hx Gastrointestinal Disorders: No - GENITOURINARY/GYNECOLOGICAL Hx Genitourinary Disorders: Yes - PSYCHIATRIC Hx Anxiety: Yes Hx Depression: Yes Hx Substance Use: No - SURGICAL HISTORY Hx Cholecystectomy: Yes - ANESTHESIA Hx Anesthesia: Yes Hx Anesthesia Reactions: No Hx Malignant Hyperthermia: No Meds Allergies/Adverse Reactions: Allergies Allergy/AdvReac Type Severity Reaction Status Date / Time ambien AdvReac Severe HEADACHE Uncoded 05/11/16 17:37 - Medications Medications: Current Medications Acetaminophen (Tylenol 325mg Tab) 650 mg PO Q4 PRN PRN Reason: Pain, Mild (1-3) Acetylcysteine (Mucomyst 10% 4ml) 2 ml IH RBID [facility] Last Admin: 08/06/16 19:01 Dose: 2 ml Albuterol Sulfate (Albuterol 0.083% Inhal Lesli (2.5 Mg/3 Ml) Ud) 2.5 mg INH RBID [facility] Last Admin: 08/06/16 19:01 Dose: 2.5 mg Alprazolam (Xanax) 0.25 mg PO HS [facility] Stop: 08/11/16 22:01 Last Admin: 08/05/16 21:14 Dose: 0.25 mg Enoxaparin Sodium (Lovenox) 40 mg SC DAILY [facility] PRN Reason: Protocol Last Admin: 08/06/16 08:07 Dose: 40 mg Guaifenesin/Dextromethorphan (Robitussin Dm) 5 ml PO Q8 PRN PRN Reason: Cough Last Admin: 08/06/16 01:24 Dose: 5 ml Ceftriaxone Sodium 1 gm/ (Sodium Chloride) 100 mls @ 100 mls/hr IVPB DAILY@ 1700 [facility] Last Admin: 08/06/16 17:19 Dose: 100 mls/hr Levothyroxine Sodium (Synthroid) 25 mcg PO DAILY@0630 [facility] Last Admin: 08/06/16 05:33 Dose: 25 mcg Pantoprazole Sodium (Protonix Ec Tab) 40 mg PO DAILY [facility] Last Admin: 08/06/16 08:08 Dose: 40 mg Vitamin B Complex/Vit C/Folic Acid (Nephro-Berkley) 1 tab PO DAILY [facility] Last Admin: 08/06/16 08:08 Dose: 1 tab Physical Exam - Constitutional Appears: Other ( wet cough with O2) - Head Exam Head Exam: ATRAUMATIC, NORMAL INSPECTION, NORMOCEPHALIC Results - Vital Signs Recent Vital Signs: Last Vital Signs Temp 97.5 F L 08/06/16 16:07 Pulse 94 H 08/06/16 16:07 Resp 20 08/06/16 16:07 BP 134/64 08/06/16 16:07 Pulse Ox 100 08/06/16 16:07 - Labs Result Diagrams: 08/06/16 08:20 08/06/16 08:20 Labs: Laboratory Results - last 24 hr 08/05/16 08/06/16 08/06/16 20:16 05:14 08:20 WBC 12.6 H RBC 3.51 L Hgb 9.8 L Hct 31.4 L MCV 89.6 MCH 28.0 MCHC 31.2 L RDW 18.0 H Plt Count 219 Sodium Potassium Chloride Carbon Dioxide Anion Gap BUN Creatinine Est GFR ( Amer) Est GFR (Non-Af Amer) POC Glucose (mg/dL) 128 H 80 Random Glucose Calcium Total Bilirubin AST ALT Alkaline Phosphatase Total Protein Albumin Globulin Albumin/Globulin Ratio 08/06/16 08/06/16 08/06/16 08:20 10:50 16:21 WBC RBC Hgb Hct MCV MCH MCHC RDW Plt Count Sodium 140 Potassium 3.9 Chloride 110 H Carbon Dioxide 25 Anion Gap 9 L BUN 12 Creatinine 0.8 Est GFR ( Amer) > 60 Est GFR (Non-Af Amer) > 60 POC Glucose (mg/dL) 103 118 H Random Glucose 97 Calcium 8.0 L Total Bilirubin 0.2 AST 24 ALT 23 Alkaline Phosphatase 115 Total Protein 5.1 L Albumin 2.2 L Globulin 2.9 Albumin/Globulin Ratio 0.8 L Assessment & Plan - Assessment and Plan (Free Text) Assessment: Procedure I performed a left knee injection no fluid sterile conditions with betadine excellent medial approach not even hitting os well tolerated no need for hemostasis will do right shortly
[2016-08-06] MEDS ORDERED: Albuterol 0.083% Inhal Sol (2.5 mg/3 mL) UD INH SCH (20:00)
[2016-08-06] MEDS ORDERED: Acetylcysteine 10% 4 ML IH SCH (20:00)
[2016-08-07] MEDS: Levothyroxine 25 MCG TAB PO SCH (06:59)
[2016-08-07] MEDS: Acetylcysteine 10% 4 ML IH SCH ×2 (07:57→19:50)
[2016-08-07] MEDS: Albuterol 0.083% Inhal Sol (2.5 mg/3 mL) UD INH SCH ×2 (07:58→19:50)
[2016-08-07] MEDS: Multivitamin Vitamin B Complex (Nephro-Vite) Tab PO SCH (08:49)
[2016-08-07] MEDS: Enoxaparin 40 mg Syringe SC SCH (08:49)
[2016-08-07] MEDS: Pantoprazole 40 mg EC Tab PO SCH (08:50)
--- NOTE | 2016-08-07 10:47 | CP.PCM.PN ---
Subjective - Date & Time of Evaluation Date of Evaluation: 08/07/16 Time of Evaluation: 10:41 - Subjective Subjective: Continues to have congested cough with expectoration of mucoid sputum, pale yellow in color. Dullness with absence of breath sounds in the left base posteriorly, bronchial breathing noted in the same area. Patient agrees to flexible bronchoscopy. Spoke to her daughter yesterday and explained need for procedure. Will request CXR for later today and labs for tomorrow AM. Procedure tentative for 11:45AM. Objective - Vital Signs/Intake and Output Vital Signs (last 24 hours): Temp Pulse Resp BP Pulse Ox 98 F 88 18 143/72 98 08/07/16 10:00 08/07/16 10:00 08/07/16 10:00 08/07/16 10:00 08/07/16 10:00 - Medications Medications: Current Medications Acetaminophen (Tylenol 325mg Tab) 650 mg PO Q4 PRN PRN Reason: Pain, Mild (1-3) Acetylcysteine (Mucomyst 10% 4ml) 2 ml IH RBID [facility] Last Admin: 08/07/16 07:57 Dose: 2 ml Albuterol Sulfate (Albuterol 0.083% Inhal Lesli (2.5 Mg/3 Ml) Ud) 2.5 mg INH RBID [facility] Last Admin: 08/07/16 07:58 Dose: 2.5 mg Alprazolam (Xanax) 0.25 mg PO HS [facility] Stop: 08/11/16 22:01 Last Admin: 08/06/16 21:11 Dose: 0.25 mg Enoxaparin Sodium (Lovenox) 40 mg SC DAILY [facility] PRN Reason: Protocol Last Admin: 08/07/16 08:49 Dose: 40 mg Guaifenesin/Dextromethorphan (Robitussin Dm) 5 ml PO Q8 PRN PRN Reason: Cough Last Admin: 08/06/16 21:11 Dose: 5 ml Ceftriaxone Sodium 1 gm/ (Sodium Chloride) 100 mls @ 100 mls/hr IVPB DAILY@ 1700 [facility] Last Admin: 08/06/16 17:19 Dose: 100 mls/hr Levothyroxine Sodium (Synthroid) 25 mcg PO DAILY@0630 [facility] Last Admin: 08/07/16 06:59 Dose: 25 mcg Pantoprazole Sodium (Protonix Ec Tab) 40 mg PO DAILY [facility] Last Admin: 08/07/16 08:50 Dose: 40 mg Paroxetine HCl (Paxil) 40 mg PO DAILY [facility] Last Admin: 08/07/16 10:12 Dose: 40 mg Vitamin B Complex/Vit C/Folic Acid (Nephro-Berkley) 1 tab PO DAILY [facility] Last Admin: 08/07/16 08:49 Dose: 1 tab - Labs Labs: 08/06/16 08:20 08/06/16 08:20 Assessment and Plan (1) Atelectasis Status: Acute (2) Pleural effusion Status: Acute
--- NOTE | 2016-08-07 15:28 | RAD ---
HISTORY: atelectasis COMPARISON: 08/01/2016 TECHNIQUE: Chest PA and lateral FINDINGS: LUNGS: No active pulmonary disease. PLEURA: Small moderate left pleural effusion slightly increased in extent compared to the prior examination. However, please note that that examination was performed with the patient upright and this examination is not labeled upright. Therefore, there may be differences in positioning of the pleural fluid. No evidence of right pleural effusion. No pneumothorax. CARDIOVASCULAR: Normal. OSSEOUS STRUCTURES: No significant abnormalities. VISUALIZED UPPER ABDOMEN: Normal. OTHER FINDINGS: None. IMPRESSION: Small to moderate left pleural effusion. No infiltrate. No pneumothorax.
--- NOTE | 2016-08-07 16:45 | CP.PCM.PN ---
<Yvette Rivera - Last Filed: 08/07/16 16:40> Subjective - Date & Time of Evaluation Date of Evaluation: 08/07/16 Time of Evaluation: 08:20 - Subjective Subjective: Patient seen and examined at bedside. Laying in bed, with intermittent wet cough , reports feelings of sadness. Pt still feels SOB intermittently despite supplemental O2 via nasal cannula. Improved left knee pain s/p steroid injection by Dr. Moon. Otherwise pt is tolerating PO diet, with normal urine output. No other concerns or complaints at this time. Objective - Vital Signs/Intake and Output Vital Signs (last 24 hours): Temp Pulse Resp BP Pulse Ox 97.7 F 95 H 20 149/85 100 08/07/16 16:28 08/07/16 16:28 08/07/16 16:28 08/07/16 16:28 08/07/16 16:28 - Medications Medications: Current Medications Acetaminophen (Tylenol 325mg Tab) 650 mg PO Q4 PRN PRN Reason: Pain, Mild (1-3) Acetylcysteine (Mucomyst 10% 4ml) 2 ml I[facility] Last Admin: 08/07/16 07:57 Dose: 2 ml Albuterol Sulfate (Albuterol 0.083% Inhal Lesli (2.5 Mg/3 Ml) Ud) 2.5 mg INH [facility] Last Admin: 08/07/16 07:58 Dose: 2.5 mg Alprazolam (Xanax) 0.25 mg PO HS [facility] Stop: 08/11/16 22:01 Last Admin: 08/06/16 21:11 Dose: 0.25 mg Enoxaparin Sodium (Lovenox) 40 mg SC DAILY [facility] PRN Reason: Protocol Last Admin: 08/07/16 08:49 Dose: 40 mg Guaifenesin/Dextromethorphan (Robitussin Dm) 5 ml PO Q8 PRN PRN Reason: Cough Last Admin: 08/06/16 21:11 Dose: 5 ml Ceftriaxone Sodium 1 gm/ (Sodium Chloride) 100 mls @ 100 mls/hr IVPB DAILY@ 1700 [facility] Last Admin: 08/06/16 17:19 Dose: 100 mls/hr Levothyroxine Sodium (Synthroid) 25 mcg PO DAILY@0630 [facility] Last Admin: 08/07/16 06:59 Dose: 25 mcg Pantoprazole Sodium (Protonix Ec Tab) 40 mg PO DAILY [facility] Last Admin: 08/07/16 08:50 Dose: 40 mg Paroxetine HCl (Paxil) 40 mg PO DAILY [facility] Last Admin: 08/07/16 10:12 Dose: 40 mg Vitamin B Complex/Vit C/Folic Acid (Nephro-Berkley) 1 tab PO DAILY [facility] Last Admin: 08/07/16 08:49 Dose: 1 tab - Labs Labs: 08/06/16 08:20 08/06/16 08:20 - Constitutional Appears: Non-toxic, Older Than Stated Age, Other (flat affect) - Head Exam Head Exam: ATRAUMATIC, NORMOCEPHALIC - Eye Exam Eye Exam: EOMI, PERRL - ENT Exam ENT Exam: Mucous Membranes Moist - Neck Exam Neck Exam: Full ROM. absent: Lymphadenopathy - Respiratory Exam Respiratory Exam: Decreased Breath Sounds (wet cough ) - Cardiovascular Exam Cardiovascular Exam: REGULAR RHYTHM, +S1, +S2 - GI/Abdominal Exam GI & Abdominal Exam: Soft (obese), Normal Bowel Sounds. absent: Tenderness - Extremities Exam Extremities Exam: Full ROM (of bilateral upper extremities, slowly moves LE's). absent: Calf Tenderness, Pedal Edema - Back Exam Back Exam: absent: CVA tenderness (L), CVA tenderness (R) - Neurological Exam Neurological Exam: Alert, Awake - Psychiatric Exam Psychiatric exam: Depressed, Flat Affect - Skin Skin Exam: Dry, Intact Assessment and Plan - Assessment and Plan (Free Text) Assessment: 81 yr old F admitted to TCU for acute rehab and medical optimization d/t deconditioning. Patient was transfered from the floor where she was admitted for SOB and found to have left pleural effusion and is s/p left thoracentesis with removal of 700cc, with visible LLL pneumonia currently treated with Ceftriaxone, and O2 destauration to 80's when off of supplemental O2. Patient has PMHx of COPD (oxygen dependent), NIDDM, HTN, pancreatic mass, Arthritis, Anxiety, Mild CKD s/p HD (last on 07/2016). Patient has complaint of SOB especially when off of supplemental O2, complains of sadness, depression. Patient stable, receiving physical therapy, intermittently experiences SOB though has normal O2 sat while on O2 via nasal cannula. 1. COPD Oxygen dependent in no exacerbation -Afebrile, SOB unchanged from baseline -pt O2 desaturation to 80's when off supplemental O2 -Persistent leukocytosis noted in previous admission is stable -continue supplemental O2 2L via NC -Vital signs stable -CXR 08/01/16 s/p left thoracentesis: decrease in left pleural effusion, commensurate re-expansion of the left lung, no pnuemothorax identified -CT chest 08/03/16: moderate left and small right pleural effusion -daily PT 2. Left pleural effusion -Improved s/p left thoracentesis: pleural fluid bloody appearance with increased WBC's, pleural fluid studies suggest exudate -Pulmonology consult appreciated, Dr. Kasper:Ceftriaxone 1gm IVPB QD , recommends flexible bronchoscopy to evaluate endobronchial process: tentatively scheduled for 08/09/16 at 11:45am; Dr. Kasper discussed procedure with pt' s daughter 3. Depression -pt started on Paxil 40 mg PO QD -re-evaluate 4. Chronic bilateral knee pain -stable, improving -PMR consult appreciated: Dr. Moon performed left knee steroid injection yesterday, possibly right knee today 5. Hx of HTN -Well controlled -will continue to monitor, no medications at this time 6. Hx of DMII (diabetes mellitus, type 2) -controlled, POC glucose 83mg/dL this AM - Accucheck ACHS 7. Hypothyroidism -Chronic, controlled, asymptomatic -Continue with Levothyroxine 25mcg PO QD -TSH normal at 0.78 on 08/03/16 8. Normocytic anemia -chronic, stable, pt asymptomatic, vital signs stable -H/H 9.8/31.4 (08/06/16) -f/u H/H 9. DVT prophylaxis -Lovenox 40 mg SC daily <Eddie Holm - Last Filed: 08/08/16 06:48> Objective - Vital Signs/Intake and Output Vital Signs (last 24 hours): Temp Pulse Resp BP Pulse Ox 98.2 F 98 H 20 152/75 H 95 08/07/16 20:00 08/07/16 20:00 08/07/16 20:00 08/07/16 20:00 08/07/16 20:00 - Medications Medications: Current Medications Acetaminophen (Tylenol 325mg Tab) 650 mg PO Q4 PRN PRN Reason: Pain, Mild (1-3) Acetylcysteine (Mucomyst 10% 4ml) 2 ml [facility] Last Admin: 08/07/16 19:50 Dose: 2 ml Albuterol Sulfate (Albuterol 0.083% Inhal Lesli (2.5 Mg/3 Ml) Ud) 2.5 mg INH [facility] Last Admin: 08/07/16 19:50 Dose: 2.5 mg Alprazolam (Xanax) 0.25 mg PO HS [facility] Stop: 08/11/16 22:01 Last Admin: 08/07/16 22:08 Dose: 0.25 mg Enoxaparin Sodium (Lovenox) 40 mg SC DAILY [facility] PRN Reason: Protocol Last Admin: 08/07/16 08:49 Dose: 40 mg Guaifenesin/Dextromethorphan (Robitussin Dm) 5 ml PO Q8 PRN PRN Reason: Cough Last Admin: 08/08/16 06:17 Dose: 5 ml Ceftriaxone Sodium 1 gm/ (Sodium Chloride) 100 mls @ 100 mls/hr IVPB DAILY@ 1700 [facility] Last Admin: 08/07/16 16:56 Dose: 100 mls/hr Levothyroxine Sodium (Synthroid) 25 mcg PO DAILY@0630 [facility] Last Admin: 08/08/16 06:17 Dose: 25 mcg Pantoprazole Sodium (Protonix Ec Tab) 40 mg PO DAILY [facility] Last Admin: 08/07/16 08:50 Dose: 40 mg Paroxetine HCl (Paxil) 40 mg PO DAILY [facility] Last Admin: 08/07/16 10:12 Dose: 40 mg Vitamin B Complex/Vit C/Folic Acid (Nephro-Berkley) 1 tab PO DAILY [facility] Last Admin: 08/07/16 08:49 Dose: 1 tab - Labs Labs: 08/06/16 08:20 08/06/16 08:20 Attending/Attestation - Attestation I have personally seen and examined this patient.: Yes I have fully participated in the care of the patient.: Yes I have reviewed all pertinent clinical information, including history, physical exam and plan: Yes
[2016-08-07] MEDS: guaiFENesin DM 100 mg-10 mg/5 ml UD PO PRN (21:07)
[2016-08-08] MEDS: Levothyroxine 25 MCG TAB PO SCH (06:17)
[2016-08-08] MEDS: guaiFENesin DM 100 mg-10 mg/5 ml UD PO PRN (06:17)
[2016-08-08 06:51] LABS: HEMATOCRIT 31.6 % (34.0-47.0); MEAN CELL VOLUME 88.8 fl (81.0-99.0); MEAN CORPUSCULAR HEMOGLOBIN 27.5 pg (27.0-31.0); RED CELL DISTRIBUTION WIDTH 18.3 % (11.5-14.5); WHITE BLOOD COUNT 12.4 K/uL (4.8-10.8)
[2016-08-08 07:05] LABS: BLOOD UREA NITROGEN 15 mg/dl (7-17); CALCIUM 8.2 mg/dL (8.4-10.2); CARBON DIOXIDE 25 mmol/L (22-30); CHLORIDE 109 mmol/L (98-107); GFR AFRICAN-AMERICAN > 60; GLUCOSE,RANDOM 108 mg/dL (65-105); SODIUM 141 mmol/l (132-148)
[2016-08-08 07:29] LABS: PARTIAL THROMBOPLASTIN TIME 25.8 Seconds (25.6-37.1)
[2016-08-08] MEDS: Albuterol 0.083% Inhal Sol (2.5 mg/3 mL) UD INH SCH ×2 (07:36→19:19)
[2016-08-08] MEDS: Acetylcysteine 10% 4 ML IH SCH ×2 (07:36→19:19)
[2016-08-08] MEDS: Multivitamin Vitamin B Complex (Nephro-Vite) Tab PO SCH (08:19)
[2016-08-08] MEDS: Enoxaparin 40 mg Syringe SC SCH (08:19)
[2016-08-08] MEDS: Pantoprazole 40 mg EC Tab PO SCH (08:19)
[2016-08-08] MEDS ORDERED: Dexamethasone 4 mg/1 ml IM ONE (12:44)
[2016-08-08] MEDS ORDERED: Triamcinolone Acetonide 40 mg/mL Inj IM ONE (12:45)
[2016-08-08] MEDS ORDERED: Lidocaine 1% Inj (20ml) IJ ONE (12:45)
--- NOTE | 2016-08-08 14:16 | CP.PCM.PN ---
Addendum entered and electronically signed by Yvette Rivera MD 08/08/16 16 :13: Paxil resumed at 20mg PO QD. Original Note: <Yvette Rivera - Last Filed: 08/08/16 14:14> Subjective - Date & Time of Evaluation Date of Evaluation: 08/08/16 Time of Evaluation: 07:25 - Subjective Subjective: Patient seen and examined at bedside, in no acute distress, expectorating clear phlegm into small container at bedside, has complaint of nausea and epigastric discomfort. Denies vomiting, dizziness, weakness, chest pain or headaches. Reports had 3 episodes of loose stools last night which has resolved this AM. Has no other concerns or complaints at this time. Objective - Vital Signs/Intake and Output Vital Signs (last 24 hours): Temp Pulse Resp BP Pulse Ox 98.1 F 102 H 18 153/81 H 98 08/08/16 07:57 08/08/16 07:57 08/08/16 07:57 08/08/16 07:57 08/08/16 07:57 - Medications Medications: Current Medications Acetaminophen (Tylenol 325mg Tab) 650 mg PO Q4 PRN PRN Reason: Pain, Mild (1-3) Acetylcysteine (Mucomyst 10% 4ml) 2 ml IH [facility]ID [facility] Last Admin: 08/08/16 07:36 Dose: 2 ml Albuterol Sulfate (Albuterol 0.083% Inhal Lesli (2.5 Mg/3 Ml) Ud) 2.5 mg INH RBID [facility] Last Admin: 08/08/16 07:36 Dose: 2.5 mg Alprazolam (Xanax) 0.25 mg PO HS [facility] Stop: 08/11/16 22:01 Last Admin: 08/07/16 22:08 Dose: 0.25 mg Enoxaparin Sodium (Lovenox) 40 mg SC DAILY [facility] PRN Reason: Protocol Last Admin: 08/08/16 08:19 Dose: 40 mg Famotidine (Pepcid) 40 mg PO DAILY [facility] Guaifenesin/Dextromethorphan (Robitussin Dm) 5 ml PO Q8 PRN PRN Reason: Cough Last Admin: 08/08/16 06:17 Dose: 5 ml Ceftriaxone Sodium 1 gm/ (Sodium Chloride) 100 mls @ 100 mls/hr IVPB DAILY@ 1700 [facility] Last Admin: 08/07/16 16:56 Dose: 100 mls/hr Levothyroxine Sodium (Synthroid) 25 mcg PO DAILY@0630 [facility] Last Admin: 08/08/16 06:17 Dose: 25 mcg Paroxetine HCl (Paxil) 20 mg PO BID [facility] Vitamin B Complex/Vit C/Folic Acid (Nephro-Berkley) 1 tab PO DAILY [facility] Last Admin: 08/08/16 08:19 Dose: 1 tab - Labs Labs: 08/08/16 06:41 08/08/16 06:41 PT 11.7 Seconds (9.8-13.1) 08/08/16 06:41 INR 1.0 (0.9-1.2) 08/08/16 06:41 APTT 25.8 Seconds (25.6-37.1) 08/08/16 06:41 - Constitutional Appears: No Acute Distress (exepctorating clear phlegm into small container at bedside), Older Than Stated Age - Head Exam Head Exam: ATRAUMATIC, NORMOCEPHALIC - Eye Exam Eye Exam: EOMI, PERRL - ENT Exam ENT Exam: Mucous Membranes Moist - Neck Exam Neck Exam: Full ROM. absent: Lymphadenopathy - Respiratory Exam Respiratory Exam: Decreased Breath Sounds (LLL, bronchial breath sounds , wet cough). absent: Rales - Cardiovascular Exam Cardiovascular Exam: REGULAR RHYTHM, +S1, +S2 - GI/Abdominal Exam GI & Abdominal Exam: Soft (obese), Tenderness (epigastric, mild), Normal Bowel Sounds. absent: Distended - Extremities Exam Extremities Exam: Full ROM. absent: Pedal Edema - Back Exam Back Exam: absent: CVA tenderness (L), CVA tenderness (R) - Neurological Exam Neurological Exam: Alert, Awake, CN II-XII Intact - Psychiatric Exam Psychiatric exam: Anxious - Skin Skin Exam: Dry, Intact, Warm Assessment and Plan - Assessment and Plan (Free Text) Assessment: 81 yr old F admitted to TCU for acute rehab and medical optimization d/t deconditioning. Patient was transfered from the floor where she was admitted for SOB and found to have left pleural effusion and is s/p left thoracentesis with removal of 700cc, with visible LLL pneumonia currently treated with Ceftriaxone, and O2 destauration to 80's when off of supplemental O2. Patient has PMHx of COPD (oxygen dependent), NIDDM, HTN, pancreatic mass, Arthritis, Anxiety, Mild CKD s/p HD (last on 07/2016). Patient has complaint of SOB especially when off of supplemental O2. Patient is medically stable for flexible bronchoscopy tomorrow. 1. COPD Oxygen dependent in no exacerbation -Afebrile, SOB unchanged from baseline -pt O2 desaturation to 80's when off supplemental O2 -Persistent leukocytosis noted in previous admission is stable -continue supplemental O2 2L via NC -Vital signs stable -CXR 08/07/16: small to moderate left pleural effusion, no infiltrate, no pneumothorax -daily PT 2. Left pleural effusion -Improved s/p left thoracentesis: pleural fluid bloody appearance with increased WBC's, pleural fluid studies suggest exudate -Pulmonology consult appreciated, Dr. Kasper:Ceftriaxone 1gm IVPB QD , recommends flexible bronchoscopy to evaluate endobronchial process: tentatively scheduled for 08/09/16 at 11:45am; Dr. Kasper discussed procedure with pt' s daughter -CXR 08/07/16: small to moderate left pleural effusion, no infiltrate, no pneumothorax -pt is medically stable for flexible bronchoscopy tomorrow 3. Depression -held Paxil 40 mg PO QD for now d/t pt complaint of nausea (Zofran 4mg IV given once) -re-evaluate 4. Chronic bilateral knee pain -stable, improving -PMR consult appreciated: Dr. Moon performed left knee steroid injection 5. Hx of HTN -Well controlled -will continue to monitor, no medications at this time 6. Hx of DMII (diabetes mellitus, type 2) -controlled, POC glucose 116mg/dL this AM -Accucheck ACHS 7. Hypothyroidism -Chronic, controlled, asymptomatic -Continue with Levothyroxine 25mcg PO QD -TSH normal at 0.78 on 08/03/16 8. Normocytic anemia -chronic, stable, pt asymptomatic, vital signs stable -H/H 9.8/31.6 today -f/u H/H 9. DVT/GI prophylaxis -Lovenox 40 mg SC daily -Famotidine 40mg PO daily start tomorrow (she received AM dose of Protonix 40mg this AM) -daily PT <Eddie Holm - Last Filed: 08/10/16 09:02> Objective - Vital Signs/Intake and Output Vital Signs (last 24 hours): Temp Pulse Resp BP Pulse Ox 96.8 F L 88 20 144/85 100 08/10/16 08:10 08/10/16 08:10 08/10/16 08:10 08/10/16 08:10 08/10/16 08:10 - Medications Medications: Current Medications Acetaminophen (Tylenol 325mg Tab) 650 mg PO Q4 PRN PRN Reason: Pain, Mild (1-3) Last Admin: 08/10/16 08:25 Dose: 650 mg Alprazolam (Xanax) 0.25 mg PO HS [facility] Stop: 08/11/16 22:01 Last Admin: 08/09/16 21:59 Dose: 0.25 mg Enoxaparin Sodium (Lovenox) 40 mg SC DAILY [facility] PRN Reason: Protocol Last Admin: 08/10/16 08:25 Dose: 40 mg Famotidine (Pepcid) 40 mg PO DAILY [facility] Last Admin: 08/10/16 08:25 Dose: 40 mg Guaifenesin/Dextromethorphan (Robitussin Dm) 5 ml PO Q8 PRN PRN Reason: Cough Last Admin: 08/09/16 20:59 Dose: 5 ml Ceftriaxone Sodium 1 gm/ (Sodium Chloride) 100 mls @ 100 mls/hr IVPB DAILY@ 1700 [facility] Last Admin: 08/09/16 17:00 Dose: 100 mls/hr Levothyroxine Sodium (Synthroid) 25 mcg PO DAILY@0630 [facility] Last Admin: 08/10/16 05:55 Dose: 25 mcg Paroxetine HCl (Paxil) 20 mg PO DAILY [facility] Last Admin: 08/10/16 08:25 Dose: 20 mg Vitamin B Complex/Vit C/Folic Acid (Nephro-Berkley) 1 tab PO DAILY [facility] Last Admin: 08/10/16 08:25 Dose: 1 tab - Labs Labs: 08/09/16 07:26 08/08/16 06:41 PT 11.7 Seconds (9.8-13.1) 08/08/16 06:41 INR 1.0 (0.9-1.2) 08/08/16 06:41 APTT 25.8 Seconds (25.6-37.1) 08/08/16 06:41 Attending/Attestation - Attestation I have personally seen and examined this patient.: Yes I have fully participated in the care of the patient.: Yes I have reviewed all pertinent clinical information, including history, physical exam and plan: Yes
--- NOTE | 2016-08-08 17:37 | PCM.PROC ---
Procedures Attestation:: I certify that I have explained the specified Operation(s) or Procedure(s), risks, benefits and reasonable alternatives to the Patient and/or other person responsible. The opportunity was given to ask questions and all questions answered - Joint Aspiration/Injection Joint #1 Consent Obtained: Verbal Consent Time Out Performed: Yes Side of Body: Right Joint Aspirated: Knee Ultrasound Guidance Used: No Skin Prep: Povidone-Iodine Needle Size Used: 22 G (no fluid) Medication Injected: Triamcinolone Acetate, Methylprednisolone, Lidocaine Patient Tolorated Procedure: Well Complications: None
[2016-08-09] MEDS: Acetylcysteine 10% 4 ML IH SCH (07:24)
[2016-08-09] MEDS: Albuterol 0.083% Inhal Sol (2.5 mg/3 mL) UD INH SCH (07:24)
[2016-08-09 07:43] LABS: MEAN CORPUSCULAR HEMOGLOBIN 28.1 pg (27.0-31.0); MEAN CORPUSCULAR HGB CONC 31.5 g/dL (33.0-37.0); RED CELL DISTRIBUTION WIDTH 17.7 % (11.5-14.5); WHITE BLOOD COUNT 11.8 K/uL (4.8-10.8)
[2016-08-09] MEDS: Levothyroxine 25 MCG TAB PO SCH (07:46)
[2016-08-09] MEDS: Multivitamin Vitamin B Complex (Nephro-Vite) Tab PO SCH (09:10)
[2016-08-09] MEDS: Enoxaparin 40 mg Syringe SC SCH (09:10)
[2016-08-09] MEDS ORDERED: Etomidate 20 mg/10ml Inj IV ONE (11:40)
[2016-08-09] MEDS ORDERED: Propofol 10 mg/ml Inj (20 ML) ONE (11:40)
--- NOTE | 2016-08-09 12:46 | CP.PCM.PN ---
<Yvette Rivera - Last Filed: 08/09/16 12:42> Subjective - Date & Time of Evaluation Date of Evaluation: 08/09/16 Time of Evaluation: 07:25 - Subjective Subjective: Patient seen and examined at bedside, laying in bed comfortably on supplemental O2 2L via nasal cannula. Patient is aware she is NPO for flexible bronchoscopy scheduled for today. She denies dizziness, weakness, chest pain, SOB, or diarrhea. Reports normal urine output. She has no other concerns or complaints at this time. Objective - Vital Signs/Intake and Output Vital Signs (last 24 hours): Temp Pulse Resp BP Pulse Ox 97.3 F L 80 18 147/76 98 08/09/16 08:06 08/09/16 08:06 08/09/16 08:06 08/09/16 08:06 08/09/16 08:06 - Medications Medications: Current Medications Acetaminophen (Tylenol 325mg Tab) 650 mg PO Q4 PRN PRN Reason: Pain, Mild (1-3) Last Admin: 08/08/16 14:42 Dose: 650 mg Alprazolam (Xanax) 0.25 mg PO HS [facility] Stop: 08/11/16 22:01 Last Admin: 08/08/16 21:59 Dose: 0.25 mg Enoxaparin Sodium (Lovenox) 40 mg SC DAILY [facility] PRN Reason: Protocol Last Admin: 08/09/16 09:10 Dose: Not Given Famotidine (Pepcid) 40 mg PO DAILY [facility] Last Admin: 08/09/16 09:10 Dose: Not Given Guaifenesin/Dextromethorphan (Robitussin Dm) 5 ml PO Q8 PRN PRN Reason: Cough Last Admin: 08/08/16 06:17 Dose: 5 ml Ceftriaxone Sodium 1 gm/ (Sodium Chloride) 100 mls @ 100 mls/hr IVPB DAILY@ 1700 [facility] Last Admin: 08/08/16 17:15 Dose: 100 mls/hr Levothyroxine Sodium (Synthroid) 25 mcg PO DAILY@0630 [facility] Last Admin: 08/09/16 07:46 Dose: Not Given Paroxetine HCl (Paxil) 20 mg PO DAILY [facility] Last Admin: 08/09/16 09:10 Dose: Not Given Vitamin B Complex/Vit C/Folic Acid (Nephro-Berkley) 1 tab PO DAILY [facility] Last Admin: 08/09/16 09:10 Dose: Not Given - Labs Labs: 08/09/16 07:26 08/08/16 06:41 PT 11.7 Seconds (9.8-13.1) 08/08/16 06:41 INR 1.0 (0.9-1.2) 08/08/16 06:41 APTT 25.8 Seconds (25.6-37.1) 08/08/16 06:41 - Constitutional Appears: Non-toxic, No Acute Distress, Older Than Stated Age (obese) - Head Exam Head Exam: ATRAUMATIC, NORMOCEPHALIC - Eye Exam Eye Exam: EOMI, PERRL - ENT Exam ENT Exam: Mucous Membranes Moist - Neck Exam Neck Exam: Full ROM. absent: Lymphadenopathy - Respiratory Exam Respiratory Exam: Decreased Breath Sounds (left lower lobe), Rhonchi (mild RLL) . absent: Respiratory Distress (on 2L supplemental O2 via nasal cannula) - Cardiovascular Exam Cardiovascular Exam: REGULAR RHYTHM, +S1, +S2 - GI/Abdominal Exam GI & Abdominal Exam: Soft, Normal Bowel Sounds. absent: Distended, Tenderness - Extremities Exam Extremities Exam: absent: Calf Tenderness, Pedal Edema - Back Exam Back Exam: absent: CVA tenderness (L), CVA tenderness (R) - Neurological Exam Neurological Exam: Alert, Awake - Psychiatric Exam Psychiatric exam: Normal Affect, Normal Mood - Skin Skin Exam: Dry, Intact Assessment and Plan - Assessment and Plan (Free Text) Assessment: 81 yr old F admitted to TCU for acute rehab and medical optimization d/t deconditioning. Patient was transfered from the floor where she was admitted for SOB and found to have left pleural effusion and is s/p left thoracentesis with removal of 700cc, with visible LLL pneumonia currently treated with Ceftriaxone, and O2 destauration to 80's when off of supplemental O2. Patient has PMHx of COPD (oxygen dependent), NIDDM, HTN, pancreatic mass, Arthritis, Anxiety, Mild CKD s/p HD (last on 07/2016). Patient has complaint of SOB especially when off of supplemental O2. Patient is medically stable and NPO since midnight last night for flexible bronchoscopy today. 1. COPD Oxygen dependent in no exacerbation -Afebrile, SOB unchanged from baseline -pt O2 desaturation to 80's when off supplemental O2 -Persistent leukocytosis noted in previous admission is stable -continue supplemental O2 2L via NC -Vital signs stable -CXR 08/07/16: small to moderate left pleural effusion, no infiltrate, no pneumothorax -daily PT 2. Left pleural effusion -Improved s/p left thoracentesis: pleural fluid bloody appearance with increased WBC's, pleural fluid studies suggest exudate -Pulmonology consult appreciated, Dr. Kasper: Ceftriaxone 1gm IVPB QD (Day 7) , recommends flexible bronchoscopy to evaluate endobronchial process: scheduled for today 08/09/16 at 11:45am; Dr. Kasper discussed procedure with pt's daughter -CXR 08/07/16: small to moderate left pleural effusion, no infiltrate, no pneumothorax -pt is medically stable and NPO since midnight last night for flexible bronchoscopy today 3. Depression -resumed Paxil at dose of 20 mg PO QD for now -re-evaluate and consider increasing dose slowly 4. Chronic bilateral knee pain -stable, improving -PMR consult appreciated: Dr. Moon performed left knee steroid injection and right knee 08/08/16, pt tolerated procedure well 5. Hx of HTN -Well controlled -will continue to monitor, no medications at this time 6. Hx of DMII (diabetes mellitus, type 2) -controlled, POC glucose 143mg/dL this AM -Accucheck ACHS 7. Hypothyroidism -Chronic, controlled, asymptomatic -Continue with Levothyroxine 25mcg PO QD -TSH normal at 0.78 on 08/03/16 8. Normocytic anemia -chronic, stable, pt asymptomatic, vital signs stable -H/H 9.11/01 today -f/u H/H 9. DVT/GI prophylaxis -Lovenox 40 mg SC daily -Famotidine 40mg PO daily -daily PT <Ta Lipscomb - Last Filed: 08/10/16 09:13> Objective - Vital Signs/Intake and Output Vital Signs (last 24 hours): Temp Pulse Resp BP Pulse Ox 96.8 F L 88 20 144/85 100 08/10/16 08:10 08/10/16 08:10 08/10/16 08:10 08/10/16 08:10 08/10/16 08:10 - Medications Medications: Current Medications Acetaminophen (Tylenol 325mg Tab) 650 mg PO Q4 PRN PRN Reason: Pain, Mild (1-3) Last Admin: 08/10/16 08:25 Dose: 650 mg Alprazolam (Xanax) 0.25 mg PO HS [facility] Stop: 08/11/16 22:01 Last Admin: 08/09/16 21:59 Dose: 0.25 mg Enoxaparin Sodium (Lovenox) 40 mg SC DAILY [facility] PRN Reason: Protocol Last Admin: 08/10/16 08:25 Dose: 40 mg Famotidine (Pepcid) 40 mg PO DAILY [facility] Last Admin: 08/10/16 08:25 Dose: 40 mg Guaifenesin/Dextromethorphan (Robitussin Dm) 5 ml PO Q8 PRN PRN Reason: Cough Last Admin: 08/09/16 20:59 Dose: 5 ml Ceftriaxone Sodium 1 gm/ (Sodium Chloride) 100 mls @ 100 mls/hr IVPB DAILY@ 1700 [facility] Last Admin: 08/09/16 17:00 Dose: 100 mls/hr Levothyroxine Sodium (Synthroid) 25 mcg PO DAILY@0630 [facility] Last Admin: 08/10/16 05:55 Dose: 25 mcg Paroxetine HCl (Paxil) 20 mg PO DAILY [facility] Last Admin: 08/10/16 08:25 Dose: 20 mg Vitamin B Complex/Vit C/Folic Acid (Nephro-Brekley) 1 tab PO DAILY [facility] Last Admin: 08/10/16 08:25 Dose: 1 tab - Labs Labs: 08/09/16 07:26 08/08/16 06:41 PT 11.7 Seconds (9.8-13.1) 08/08/16 06:41 INR 1.0 (0.9-1.2) 08/08/16 06:41 APTT 25.8 Seconds (25.6-37.1) 08/08/16 06:41 Attending/Attestation - Attestation I have personally seen and examined this patient.: Yes I have fully participated in the care of the patient.: Yes I have reviewed all pertinent clinical information, including history, physical exam and plan: Yes
--- NOTE | 2016-08-09 13:07 | RAD ---
HISTORY: Post bronchoscopy. Portable study 12:50. COMPARISON: 08/07/2016. FINDINGS: LUNGS: No change bilateral infiltrates left larger than right. PLEURA: Stable pleural effusions. No pneumothorax following bronchoscopy. CARDIOVASCULAR: Cardiomegaly. No evidence of acute, significant cardiovascular disease. OSSEOUS STRUCTURES: No significant abnormalities. VISUALIZED UPPER ABDOMEN: Normal. OTHER FINDINGS: None. IMPRESSION: No significant interval change compared to the prior examination(s). Unremarkable post bronchoscopy study common no evidence of pneumothorax.
--- NOTE | 2016-08-09 19:09 | CP.PCM.PN ---
Subjective - Date & Time of Evaluation Date of Evaluation: 08/09/16 Time of Evaluation: 19:08 - Subjective Subjective: Patient seen in room now s/p bilateral knee injections well tolerated she is not a clear historian and it is not really clear her pain level in the knees she is to get scoped tomorrow continue therapies Objective - Vital Signs/Intake and Output Vital Signs (last 24 hours): Temp Pulse Resp BP Pulse Ox 98.2 F 98 H 20 132/71 100 08/09/16 16:36 08/09/16 16:36 08/09/16 16:36 08/09/16 16:36 08/09/16 16:36 - Medications Medications: Current Medications Acetaminophen (Tylenol 325mg Tab) 650 mg PO Q4 PRN PRN Reason: Pain, Mild (1-3) Last Admin: 08/08/16 14:42 Dose: 650 mg Alprazolam (Xanax) 0.25 mg PO HS [facility] Stop: 08/11/16 22:01 Last Admin: 08/08/16 21:59 Dose: 0.25 mg Enoxaparin Sodium (Lovenox) 40 mg SC DAILY [facility] PRN Reason: Protocol Last Admin: 08/09/16 09:10 Dose: Not Given Famotidine (Pepcid) 40 mg PO DAILY [facility] Last Admin: 08/09/16 09:10 Dose: Not Given Guaifenesin/Dextromethorphan (Robitussin Dm) 5 ml PO Q8 PRN PRN Reason: Cough Last Admin: 08/08/16 06:17 Dose: 5 ml Ceftriaxone Sodium 1 gm/ (Sodium Chloride) 100 mls @ 100 mls/hr IVPB DAILY@ 1700 [facility] Last Admin: 08/09/16 17:00 Dose: 100 mls/hr Levothyroxine Sodium (Synthroid) 25 mcg PO DAILY@0630 [facility] Last Admin: 08/09/16 07:46 Dose: Not Given Paroxetine HCl (Paxil) 20 mg PO DAILY [facility] Last Admin: 08/09/16 09:10 Dose: Not Given Vitamin B Complex/Vit C/Folic Acid (Nephro-Berkley) 1 tab PO DAILY [facility] Last Admin: 08/09/16 09:10 Dose: Not Given - Labs Labs: 08/09/16 07:26 08/08/16 06:41 PT 11.7 Seconds (9.8-13.1) 08/08/16 06:41 INR 1.0 (0.9-1.2) 08/08/16 06:41 APTT 25.8 Seconds (25.6-37.1) 08/08/16 06:41
[2016-08-09] MEDS: guaiFENesin DM 100 mg-10 mg/5 ml UD PO PRN (20:59)
[2016-08-10] MEDS: Levothyroxine 25 MCG TAB PO SCH (05:55)
[2016-08-10] MEDS: Enoxaparin 40 mg Syringe SC SCH (08:25)
[2016-08-10] MEDS: Multivitamin Vitamin B Complex (Nephro-Vite) Tab PO SCH (08:25)
--- NOTE | 2016-08-10 13:27 | RAD ---
PROCEDURE: CHEST RADIOGRAPH, 1 VIEW HISTORY: pleural effusion COMPARISON: August 09, 2016. FINDINGS: LUNGS: Stable consolidative changes primarily affecting the left lower lobe. PLEURA: Stable bilateral pleural effusions left larger than right. CARDIOVASCULAR: Cardiomegaly. No evidence of acute, significant cardiovascular disease. OSSEOUS STRUCTURES: No significant abnormalities. VISUALIZED UPPER ABDOMEN: Normal. OTHER FINDINGS: None. IMPRESSION: No significant interval change compared to the prior examination(s).
--- NOTE | 2016-08-10 14:06 | CP.PCM.PN ---
Subjective - Date & Time of Evaluation Date of Evaluation: 08/10/16 Time of Evaluation: 14:02 - Subjective Subjective: Seen on rounds in the transitional care unit. She is presently sitting upright in bed eating lunch. She claims to feel improved, although she continues to have a congested cough. A small amount of mucoid sputum is expectorated during the examination. Flexible bronchoscopy performed yesterday revealed mucus impacted airways at the left lower lobe. These secretions did not have a purulent nature to them and were suctioned clear with patent airways remaining at the end of the procedure. No endobronchial lesion was identified. SPO2 presently is 95-96% on 2 L of nasal cannula oxygen. SPO2 measured on room air at rest was 91%. There had been a previous overnight oximetry with recording which showed significant desaturations below 89% with an extended period of time where her saturation was 84%. Flow SPO2 recording was 79%. On examination now there are rhonchi located in the lower lobes bilaterally. There is still dullness to percussion at left base posteriorly with breath sounds in this area markedly diminished. No bronchial breathing or egophony. No wheezing. Chest x-ray performed this morning showed persistence of the left-sided pleural effusion. Encourage deep breathing and cough. Will add furosemide 40 mg once daily to her current regimen. Nasal oxygen has been removed presently and request for documentation of SPO2 is as discussed with nursing. Repeat overnight oximetry may be needed to document need for home oxygen. Objective - Vital Signs/Intake and Output Vital Signs (last 24 hours): Temp Pulse Resp BP Pulse Ox 96.8 F L 88 20 144/85 100 08/10/16 08:10 08/10/16 08:10 08/10/16 08:10 08/10/16 08:10 08/10/16 08:10 - Medications Medications: Current Medications Acetaminophen (Tylenol 325mg Tab) 650 mg PO Q4 PRN PRN Reason: Pain, Mild (1-3) Last Admin: 08/10/16 08:25 Dose: 650 mg Alprazolam (Xanax) 0.25 mg PO HS [facility] Stop: 08/11/16 22:01 Last Admin: 08/09/16 21:59 Dose: 0.25 mg Enoxaparin Sodium (Lovenox) 40 mg SC DAILY [facility] PRN Reason: Protocol Last Admin: 08/10/16 08:25 Dose: 40 mg Famotidine (Pepcid) 40 mg PO DAILY [facility] Last Admin: 08/10/16 08:25 Dose: 40 mg Furosemide (Lasix) 40 mg PO DAILY [facility] Guaifenesin/Dextromethorphan (Robitussin Dm) 5 ml PO Q8 PRN PRN Reason: Cough Last Admin: 08/09/16 20:59 Dose: 5 ml Ceftriaxone Sodium 1 gm/ (Sodium Chloride) 100 mls @ 100 mls/hr IVPB DAILY@ 1700 [facility] Last Admin: 08/09/16 17:00 Dose: 100 mls/hr Levothyroxine Sodium (Synthroid) 25 mcg PO DAILY@0630 [facility] Last Admin: 08/10/16 05:55 Dose: 25 mcg Paroxetine HCl (Paxil) 20 mg PO DAILY [facility] Last Admin: 08/10/16 08:25 Dose: 20 mg Vitamin B Complex/Vit C/Folic Acid (Nephro-Berkley) 1 tab PO DAILY [facility] Last Admin: 08/10/16 08:25 Dose: 1 tab - Labs Labs: 08/09/16 07:26 08/08/16 06:41 PT 11.7 Seconds (9.8-13.1) 08/08/16 06:41 INR 1.0 (0.9-1.2) 08/08/16 06:41 APTT 25.8 Seconds (25.6-37.1) 08/08/16 06:41 Assessment and Plan (1) Atelectasis Status: Acute (2) Pleural effusion Status: Acute
--- NOTE | 2016-08-10 21:19 | CP.PCM.PN ---
<Yvette Rivera - Last Filed: 08/10/16 21:14> Subjective - Date & Time of Evaluation Date of Evaluation: 08/10/16 Time of Evaluation: 07:10 - Subjective Subjective: Patient seen and examined at bedside, laying in bed in no acute distress, tolerating PO diet, reports her congestion has improved after her pulmonary procedure, reports normal urine output. Patient has no concerns or complaints at this time. Objective - Vital Signs/Intake and Output Vital Signs (last 24 hours): Temp Pulse Resp BP Pulse Ox 97.9 F 79 20 172/89 H 100 08/10/16 20:03 08/10/16 20:03 08/10/16 20:03 08/10/16 20:03 08/10/16 20:03 - Medications Medications: Current Medications Acetaminophen (Tylenol 325mg Tab) 650 mg PO Q4 PRN PRN Reason: Pain, Mild (1-3) Last Admin: 08/10/16 08:25 Dose: 650 mg Alprazolam (Xanax) 0.25 mg PO HS [facility] Stop: 08/11/16 22:01 Last Admin: 08/09/16 21:59 Dose: 0.25 mg Enoxaparin Sodium (Lovenox) 40 mg SC DAILY [facility] PRN Reason: Protocol Last Admin: 08/10/16 08:25 Dose: 40 mg Famotidine (Pepcid) 40 mg PO DAILY [facility] Last Admin: 08/10/16 08:25 Dose: 40 mg Furosemide (Lasix) 40 mg PO DAILY [facility] Last Admin: 08/10/16 17:26 Dose: 40 mg Guaifenesin/Dextromethorphan (Robitussin Dm) 5 ml PO Q8 PRN PRN Reason: Cough Last Admin: 08/09/16 20:59 Dose: 5 ml Ceftriaxone Sodium 1 gm/ (Sodium Chloride) 100 mls @ 100 mls/hr IVPB DAILY@ 1700 [facility] Last Admin: 08/10/16 17:34 Dose: 100 mls/hr Levothyroxine Sodium (Synthroid) 25 mcg PO DAILY@0630 [facility] Last Admin: 08/10/16 05:55 Dose: 25 mcg Paroxetine HCl (Paxil) 20 mg PO DAILY [facility] Last Admin: 08/10/16 08:25 Dose: 20 mg Vitamin B Complex/Vit C/Folic Acid (Nephro-Berkley) 1 tab PO DAILY [facility] Last Admin: 08/10/16 08:25 Dose: 1 tab - Labs Labs: 08/09/16 07:26 08/08/16 06:41 PT 11.7 Seconds (9.8-13.1) 08/08/16 06:41 INR 1.0 (0.9-1.2) 08/08/16 06:41 APTT 25.8 Seconds (25.6-37.1) 08/08/16 06:41 - Constitutional Appears: Well, No Acute Distress - Head Exam Head Exam: ATRAUMATIC, NORMOCEPHALIC - Eye Exam Eye Exam: EOMI, PERRL - ENT Exam ENT Exam: Mucous Membranes Moist - Neck Exam Neck Exam: Full ROM. absent: Lymphadenopathy - Respiratory Exam Respiratory Exam: Rhonchi (minimal in bilateral lower lobes) - Cardiovascular Exam Cardiovascular Exam: REGULAR RHYTHM, +S1, +S2 - GI/Abdominal Exam GI & Abdominal Exam: Soft (obese), Normal Bowel Sounds. absent: Tenderness - Extremities Exam Extremities Exam: Full ROM. absent: Pedal Edema - Back Exam Back Exam: absent: CVA tenderness (L), CVA tenderness (R) - Neurological Exam Neurological Exam: Alert, Awake, CN II-XII Intact - Psychiatric Exam Psychiatric exam: Normal Affect, Normal Mood - Skin Skin Exam: Dry, Intact, Warm Assessment and Plan - Assessment and Plan (Free Text) Assessment: 81 yr old F admitted to TCU for acute rehab and medical optimization d/t deconditioning. Patient was transfered from the floor where she was admitted for SOB and found to have left pleural effusion and is s/p left thoracentesis with removal of 700cc, with visible LLL pneumonia currently treated with Ceftriaxone, and O2 destauration to 80's when off of supplemental O2. Patient has PMHx of COPD (oxygen dependent), NIDDM, HTN, pancreatic mass, Arthritis, Anxiety, Mild CKD s/p HD (last on 07/2016). Patient has complaint of SOB especially when off of supplemental O2. Patient is stable, tolerating PO diet and with improved chest congestion s/p flexible bronchoscopy yesterday. SW is arranging home O2. 1. COPD Oxygen dependent in no exacerbation -Afebrile, SOB unchanged from baseline -pt O2 desaturation to 80's when off supplemental O2 -Persistent leukocytosis noted in previous admission is stable -continue supplemental O2 2L via NC -Vital signs stable -CXR 08/07/16: small to moderate left pleural effusion, no infiltrate, no pneumothorax -Post bronchoscopy CXR 08/09/16: no change in bilateral infiltrates left larger than right, stable pleural effusions, no pneumothorax -CXR 08/10/16: No change compared to prior -daily PT 2. Left pleural effusion -Improved s/p left thoracentesis: pleural fluid bloody appearance with increased WBC's, pleural fluid studies suggest exudate -Pulmonology consult appreciated, Dr. Kasper: Ceftriaxone 1gm IVPB QD (Day 8) -CXR 08/07/16: small to moderate left pleural effusion, no infiltrate, no pneumothorax -CXR 08/10/16: No change compared to prior 3. Depression -resumed Paxil at dose of 20 mg PO QD for now -re-evaluate and consider increasing dose slowly 4. Chronic bilateral knee pain -stable, improving -PMR consult appreciated: Dr. Moon performed left knee steroid injection and right knee 08/08/16, pt tolerated procedure well 5. Hx of HTN -Well controlled, 144/85 mmHg this AM -will continue to monitor, no medications at this time 6. Hx of DMII (diabetes mellitus, type 2) -controlled, POC glucose 105mg/dL this AM -Accucheck ACHS 7. Hypothyroidism -Chronic, controlled, asymptomatic -Continue with Levothyroxine 25mcg PO QD -TSH normal at 0.78 on 08/03/16 8. Normocytic anemia -chronic, stable, pt asymptomatic, vital signs stable -H/H 9.8 (08/09/16) -f/u H/H 9. DVT/GI prophylaxis -Lovenox 40 mg SC daily -Famotidine 40mg PO daily -daily PT <Ta Lipscomb - Last Filed: 08/13/16 06:50> Objective - Vital Signs/Intake and Output Vital Signs (last 24 hours): Temp Pulse Resp BP Pulse Ox 99.5 F 84 20 130/87 100 08/12/16 20:43 08/12/16 20:43 08/12/16 20:43 08/12/16 20:43 08/12/16 20:43 - Medications Medications: Current Medications Acetaminophen (Tylenol 325mg Tab) 650 mg PO Q4 PRN PRN Reason: Pain, Mild (1-3) Last Admin: 08/12/16 09:00 Dose: 650 mg Alprazolam (Xanax) 0.25 mg PO HS [facility] Stop: 08/19/16 22:31 Last Admin: 08/12/16 23:08 Dose: 0.25 mg Enoxaparin Sodium (Lovenox) 40 mg SC DAILY [facility] PRN Reason: Protocol Last Admin: 08/12/16 09:03 Dose: 40 mg Famotidine (Pepcid) 40 mg PO DAILY [facility] Last Admin: 08/12/16 09:04 Dose: 40 mg Fluticasone Propionate (Flonase) 2 spr LINSEY DAILY [facility] Last Admin: 08/12/16 16:44 Dose: 2 spr Furosemide (Lasix) 40 mg PO DAILY [facility] Last Admin: 08/12/16 09:03 Dose: 40 mg Guaifenesin/Dextromethorphan (Robitussin Dm) 5 ml PO Q8 PRN PRN Reason: Cough Last Admin: 08/11/16 21:24 Dose: 5 ml Ceftriaxone Sodium 1 gm/ (Sodium Chloride) 100 mls @ 100 mls/hr IVPB DAILY@ 1700 [facility] Last Admin: 08/12/16 16:44 Dose: 100 mls/hr Levothyroxine Sodium (Synthroid) 25 mcg PO DAILY@0630 [facility] Last Admin: 08/13/16 06:43 Dose: 25 mcg Paroxetine HCl (Paxil) 30 mg PO DAILY [facility] Vitamin B Complex/Vit C/Folic Acid (Nephro-Berkley) 1 tab PO DAILY [facility] Last Admin: 08/12/16 09:03 Dose: 1 tab - Labs Labs: 08/09/16 07:26 08/08/16 06:41 PT 11.7 Seconds (9.8-13.1) 08/08/16 06:41 INR 1.0 (0.9-1.2) 08/08/16 06:41 APTT 25.8 Seconds (25.6-37.1) 08/08/16 06:41 Attending/Attestation - Attestation I have personally seen and examined this patient.: Yes I have fully participated in the care of the patient.: Yes I have reviewed all pertinent clinical information, including history, physical exam and plan: Yes
[2016-08-11] MEDS: Levothyroxine 25 MCG TAB PO SCH (06:27)
[2016-08-11] MEDS: Enoxaparin 40 mg Syringe SC SCH (08:54)
[2016-08-11] MEDS: Multivitamin Vitamin B Complex (Nephro-Vite) Tab PO SCH (08:55)
[2016-08-11] MEDS: guaiFENesin DM 100 mg-10 mg/5 ml UD PO PRN (21:24)
[2016-08-12] MEDS: Levothyroxine 25 MCG TAB PO SCH (06:39)
[2016-08-12] MEDS: Enoxaparin 40 mg Syringe SC SCH (09:03)
[2016-08-12] MEDS: Multivitamin Vitamin B Complex (Nephro-Vite) Tab PO SCH (09:03)
--- NOTE | 2016-08-12 10:08 | CP.PCM.PN ---
Subjective - Date & Time of Evaluation Date of Evaluation: 08/12/16 Time of Evaluation: 08:40 - Subjective Subjective: Patient seen and examined at bedside, laying in bed in no acute distress. Reports normal urine output, no bowel movement in 3 days, cough has improved, tolerating PO diet. Denies chest pain, SOB, dizziness or weakness. Objective - Vital Signs/Intake and Output Vital Signs (last 24 hours): Temp Pulse Resp BP Pulse Ox 97.7 F 79 20 145/88 96 08/12/16 07:48 08/12/16 07:48 08/12/16 07:48 08/12/16 09:03 08/12/16 07:48 - Medications Medications: Current Medications Acetaminophen (Tylenol 325mg Tab) 650 mg PO Q4 PRN PRN Reason: Pain, Mild (1-3) Last Admin: 08/12/16 09:00 Dose: 650 mg Enoxaparin Sodium (Lovenox) 40 mg SC DAILY [facility] PRN Reason: Protocol Last Admin: 08/12/16 09:03 Dose: 40 mg Famotidine (Pepcid) 40 mg PO DAILY [facility] Last Admin: 08/12/16 09:04 Dose: 40 mg Furosemide (Lasix) 40 mg PO DAILY [facility] Last Admin: 08/12/16 09:03 Dose: 40 mg Guaifenesin/Dextromethorphan (Robitussin Dm) 5 ml PO Q8 PRN PRN Reason: Cough Last Admin: 08/11/16 21:24 Dose: 5 ml Ceftriaxone Sodium 1 gm/ (Sodium Chloride) 100 mls @ 100 mls/hr IVPB DAILY@ 1700 [facility] Last Admin: 08/11/16 16:30 Dose: 100 mls/hr Levothyroxine Sodium (Synthroid) 25 mcg PO DAILY@0630 [facility] Last Admin: 08/12/16 06:39 Dose: 25 mcg Paroxetine HCl (Paxil) 20 mg PO DAILY [facility] Last Admin: 08/12/16 09:03 Dose: 20 mg Vitamin B Complex/Vit C/Folic Acid (Nephro-Berkley) 1 tab PO DAILY [facility] Last Admin: 08/12/16 09:03 Dose: 1 tab - Labs Labs: 08/09/16 07:26 08/08/16 06:41 PT 11.7 Seconds (9.8-13.1) 08/08/16 06:41 INR 1.0 (0.9-1.2) 08/08/16 06:41 APTT 25.8 Seconds (25.6-37.1) 08/08/16 06:41 - Constitutional Appears: Well, No Acute Distress, Older Than Stated Age - Head Exam Head Exam: ATRAUMATIC, NORMOCEPHALIC - Eye Exam Eye Exam: EOMI, PERRL - ENT Exam ENT Exam: Mucous Membranes Moist - Neck Exam Neck Exam: Full ROM. absent: Lymphadenopathy - Respiratory Exam Respiratory Exam: Rhonchi (mild in LL), NORMAL BREATHING PATTERN - Cardiovascular Exam Cardiovascular Exam: REGULAR RHYTHM, +S1, +S2 - GI/Abdominal Exam GI & Abdominal Exam: Soft, Normal Bowel Sounds. absent: Tenderness - Extremities Exam Extremities Exam: Full ROM. absent: Pedal Edema - Back Exam Back Exam: absent: CVA tenderness (L), CVA tenderness (R) - Neurological Exam Neurological Exam: Alert, Awake - Psychiatric Exam Psychiatric exam: Normal Affect, Normal Mood - Skin Skin Exam: Dry, Intact, Warm Assessment and Plan - Assessment and Plan (Free Text) Assessment: 81 yr old F admitted to TCU for acute rehab and medical optimization d/t deconditioning. Patient was transfered from the floor where she was admitted for SOB and found to have left pleural effusion and is s/p left thoracentesis with removal of 700cc, with visible LLL pneumonia currently treated with Ceftriaxone, and O2 destauration to 80's when off of supplemental O2. Patient has PMHx of COPD (oxygen dependent), NIDDM, HTN, pancreatic mass, Arthritis, Anxiety, Mild CKD s/p HD (last on 07/2016). Patient is stable, tolerating PO diet and with improved cough, SW is arranging home O2. 1. COPD Oxygen dependent in no exacerbation -Afebrile, SOB unchanged from baseline -pt O2 desaturation to 80's when off supplemental O2 -Persistent leukocytosis noted in previous admission is stable -continue supplemental O2 2L via NC -Vital signs stable -CXR 08/07/16: small to moderate left pleural effusion, no infiltrate, no pneumothorax -Post bronchoscopy CXR 08/09/16: no change in bilateral infiltrates left larger than right, stable pleural effusions, no pneumothorax -CXR 08/10/16: No change compared to prior -daily PT 2. Left pleural effusion -Improved s/p left thoracentesis: pleural fluid bloody appearance with increased WBC's, pleural fluid studies suggest exudate -Pulmonology consult appreciated, Dr. Kasper: Ceftriaxone 1gm IVPB QD (Day 8) -CXR 08/07/16: small to moderate left pleural effusion, no infiltrate, no pneumothorax -CXR 08/10/16: No change compared to prior 3. Depression -Paxil at dose of 20 mg PO QD , tomorrow will increase to Paxil 30mg PO QD -re-evaluate and consider increasing dose slowly 4. Chronic bilateral knee pain -stable, improving -PMR consult appreciated: Dr. Moon performed left knee steroid injection and right knee 08/08/16, pt tolerated procedure well 5. Hx of HTN -Well controlled, 145/88 mmHg this AM -will continue to monitor, no medications at this time 6. Hx of DMII (diabetes mellitus, type 2) -controlled, POC glucose 104 mg/dL this AM -Accucheck ACHS 7. Hypothyroidism -Chronic, controlled, asymptomatic -Continue with Levothyroxine 25mcg PO QD -TSH normal at 0.78 on 08/03/16 8. Normocytic anemia -chronic, stable, pt asymptomatic, vital signs stable -H/H 9.11/01 (08/09/16) -f/u H/H 9. DVT/GI prophylaxis -Lovenox 40 mg SC daily -Famotidine 40mg PO daily -daily PT
[2016-08-12] MEDS ORDERED: Chlorhexidine Gluconate 1 APPL/PKT TP ONE (11:23)
[2016-08-13] MEDS: Levothyroxine 25 MCG TAB PO SCH (06:43)
[2016-08-13] MEDS: Enoxaparin 40 mg Syringe SC SCH (08:08)
[2016-08-13] MEDS: Multivitamin Vitamin B Complex (Nephro-Vite) Tab PO SCH (08:08)
--- NOTE | 2016-08-13 10:26 | CP.PCM.PN ---
Subjective - Date & Time of Evaluation Date of Evaluation: 08/13/16 Time of Evaluation: 10:25 - Subjective Subjective: Appears to be doing well on current regimen. Requested follow up CXR, PA in department. Objective - Vital Signs/Intake and Output Vital Signs (last 24 hours): Temp Pulse Resp BP Pulse Ox 98.0 F 80 18 154/73 H 99 08/13/16 07:36 08/13/16 07:36 08/13/16 07:36 08/13/16 08:08 08/13/16 07:36 - Medications Medications: Current Medications Acetaminophen (Tylenol 325mg Tab) 650 mg PO Q4 PRN PRN Reason: Pain, Mild (1-3) Last Admin: 08/12/16 09:00 Dose: 650 mg Alprazolam (Xanax) 0.25 mg PO HS [facility] Stop: 08/19/16 22:31 Last Admin: 08/12/16 23:08 Dose: 0.25 mg Enoxaparin Sodium (Lovenox) 40 mg SC DAILY [facility] PRN Reason: Protocol Last Admin: 08/13/16 08:08 Dose: 40 mg Famotidine (Pepcid) 40 mg PO DAILY [facility] Last Admin: 08/13/16 08:08 Dose: 40 mg Fluticasone Propionate (Flonase) 2 spr LINSEY DAILY [facility] Last Admin: 08/13/16 08:08 Dose: 2 spr Furosemide (Lasix) 40 mg PO DAILY [facility] Last Admin: 08/13/16 08:08 Dose: 40 mg Guaifenesin/Dextromethorphan (Robitussin Dm) 5 ml PO Q8 PRN PRN Reason: Cough Last Admin: 08/11/16 21:24 Dose: 5 ml Ceftriaxone Sodium 1 gm/ (Sodium Chloride) 100 mls @ 100 mls/hr IVPB DAILY@ 1700 [facility] Last Admin: 08/12/16 16:44 Dose: 100 mls/hr Levothyroxine Sodium (Synthroid) 25 mcg PO DAILY@0630 [facility] Last Admin: 08/13/16 06:43 Dose: 25 mcg Paroxetine HCl (Paxil) 30 mg PO DAILY [facility] Last Admin: 08/13/16 08:08 Dose: 30 mg Vitamin B Complex/Vit C/Folic Acid (Nephro-Berkley) 1 tab PO DAILY [facility] Last Admin: 08/13/16 08:08 Dose: 1 tab - Labs Labs: 08/09/16 07:26 08/08/16 06:41 PT 11.7 Seconds (9.8-13.1) 08/08/16 06:41 INR 1.0 (0.9-1.2) 08/08/16 06:41 APTT 25.8 Seconds (25.6-37.1) 08/08/16 06:41 Assessment and Plan (1) Atelectasis Status: Acute (2) Pleural effusion Status: Acute
--- NOTE | 2016-08-13 14:40 | CP.PCM.PN ---
<Yvette Rivera - Last Filed: 08/13/16 14:37> Subjective - Date & Time of Evaluation Date of Evaluation: 08/13/16 Time of Evaluation: 07:40 - Subjective Subjective: Patient seen and examined at bedside. Denies SOB, chest pain, palpitations, weakness or dizziness. Patient had bowel movement yesterday, has normal urine output. Has no concerns or complaints at this time. Objective - Vital Signs/Intake and Output Vital Signs (last 24 hours): Temp Pulse Resp BP Pulse Ox 98.0 F 89 18 154/73 H 95 08/13/16 07:36 08/13/16 13:54 08/13/16 07:36 08/13/16 13:54 08/13/16 13:54 - Medications Medications: Current Medications Acetaminophen (Tylenol 325mg Tab) 650 mg PO Q4 PRN PRN Reason: Pain, Mild (1-3) Last Admin: 08/12/16 09:00 Dose: 650 mg Alprazolam (Xanax) 0.25 mg PO HS [facility] Stop: 08/19/16 22:31 Last Admin: 08/12/16 23:08 Dose: 0.25 mg Enoxaparin Sodium (Lovenox) 40 mg SC DAILY [facility] PRN Reason: Protocol Last Admin: 08/13/16 08:08 Dose: 40 mg Famotidine (Pepcid) 40 mg PO DAILY [facility] Last Admin: 08/13/16 08:08 Dose: 40 mg Fluticasone Propionate (Flonase) 2 spr LINSEY DAILY [facility] Last Admin: 08/13/16 08:08 Dose: 2 spr Furosemide (Lasix) 40 mg PO DAILY [facility] Last Admin: 08/13/16 08:08 Dose: 40 mg Guaifenesin/Dextromethorphan (Robitussin Dm) 5 ml PO Q8 PRN PRN Reason: Cough Last Admin: 08/11/16 21:24 Dose: 5 ml Ceftriaxone Sodium 1 gm/ (Sodium Chloride) 100 mls @ 100 mls/hr IVPB DAILY@ 1700 [facility] Last Admin: 08/12/16 16:44 Dose: 100 mls/hr Levothyroxine Sodium (Synthroid) 25 mcg PO DAILY@0630 [facility] Last Admin: 08/13/16 06:43 Dose: 25 mcg Paroxetine HCl (Paxil) 30 mg PO DAILY [facility] Last Admin: 08/13/16 08:08 Dose: 30 mg Vitamin B Complex/Vit C/Folic Acid (Nephro-Berkley) 1 tab PO DAILY [facility] Last Admin: 08/13/16 08:08 Dose: 1 tab - Labs Labs: 08/09/16 07:26 08/08/16 06:41 PT 11.7 Seconds (9.8-13.1) 08/08/16 06:41 INR 1.0 (0.9-1.2) 08/08/16 06:41 APTT 25.8 Seconds (25.6-37.1) 08/08/16 06:41 - Constitutional Appears: Well, No Acute Distress, Older Than Stated Age - Head Exam Head Exam: ATRAUMATIC, NORMOCEPHALIC - Eye Exam Eye Exam: EOMI, PERRL - ENT Exam ENT Exam: Mucous Membranes Moist - Neck Exam Neck Exam: Full ROM. absent: Lymphadenopathy - Respiratory Exam Respiratory Exam: Rhonchi (mild in left lower lobe), NORMAL BREATHING PATTERN - Cardiovascular Exam Cardiovascular Exam: REGULAR RHYTHM, +S1, +S2 - GI/Abdominal Exam GI & Abdominal Exam: Soft (obese), Normal Bowel Sounds. absent: Distended, Tenderness - Extremities Exam Extremities Exam: absent: Calf Tenderness, Pedal Edema - Back Exam Back Exam: absent: CVA tenderness (L), CVA tenderness (R) - Neurological Exam Neurological Exam: Alert, Awake, CN II-XII Intact - Psychiatric Exam Psychiatric exam: Normal Affect, Normal Mood - Skin Skin Exam: Dry, Intact, Warm Assessment and Plan - Assessment and Plan (Free Text) Assessment: 81 yr old F admitted to TCU for acute rehab and medical optimization d/t deconditioning. Patient was transfered from the floor where she was admitted for SOB and found to have left pleural effusion and is s/p left thoracentesis with removal of 700cc, with visible LLL pneumonia currently treated with Ceftriaxone, and O2 destauration to 80's when off of supplemental O2. Patient has PMHx of COPD (oxygen dependent), NIDDM, HTN, pancreatic mass, Arthritis, Anxiety, Mild CKD s/p HD (last on 07/2016). Patient is s/p flexible bronchoscopy , is stable, tolerating PO diet and with improved cough, SW is arranging placement for discharge. 1. COPD Oxygen dependent in no exacerbation -Afebrile, SOB unchanged from baseline -pt O2 desaturation to 80's when off supplemental O2 -Persistent leukocytosis noted in previous admission is stable -continue supplemental O2 2L via NC -Vital signs stable -Post bronchoscopy CXR 08/09/16: no change in bilateral infiltrates left larger than right, stable pleural effusions, no pneumothorax -CXR 08/10/16: No change compared to prior -daily PT -f/u repeat CXR done 08/13/16 2. Left pleural effusion -Improved s/p left thoracentesis: pleural fluid bloody appearance with increased WBC's, pleural fluid studies suggest exudate -Pulmonology consult appreciated, Dr. Kasper: will follow recommendations -CXR 08/07/16: small to moderate left pleural effusion, no infiltrate, no pneumothorax -CXR 08/10/16: No change compared to prior 3. Depression -Paxil at dose of 30 mg PO QD -re-evaluate and consider increasing dose slowly 4. Chronic bilateral knee pain -stable, improving -PMR consult appreciated: Dr. Moon performed left knee steroid injection and right knee 08/08/16, pt tolerated procedure well 5. Hx of HTN -Well controlled -will continue to monitor, no medications at this time 6. Hx of DMII (diabetes mellitus, type 2) -controlled -Accucheck ACHS 7. Hypothyroidism -Chronic, controlled, asymptomatic -Continue with Levothyroxine 25mcg PO QD -TSH normal at 0.78 on 08/03/16 8. Normocytic anemia -chronic, stable, pt asymptomatic, vital signs stable -H/H 9.8/31 (08/09/16) 9. DVT/GI prophylaxis -Lovenox 40 mg SC daily -Famotidine 40mg PO daily -daily PT <Ta Lipscomb - Last Filed: 08/14/16 06:45> Objective - Vital Signs/Intake and Output Vital Signs (last 24 hours): Temp Pulse Resp BP Pulse Ox 98.4 F 79 20 141/70 96 08/13/16 19:30 08/13/16 19:30 08/13/16 19:30 08/13/16 19:30 08/13/16 19:30 - Medications Medications: Current Medications Acetaminophen (Tylenol 325mg Tab) 650 mg PO Q4 PRN PRN Reason: Pain, Mild (1-3) Last Admin: 08/12/16 09:00 Dose: 650 mg Alprazolam (Xanax) 0.25 mg PO HS [facility] Stop: 08/19/16 22:31 Last Admin: 08/13/16 22:12 Dose: 0.25 mg Enoxaparin Sodium (Lovenox) 40 mg SC DAILY [facility] PRN Reason: Protocol Last Admin: 08/13/16 08:08 Dose: 40 mg Famotidine (Pepcid) 40 mg PO DAILY [facility] Last Admin: 08/13/16 08:08 Dose: 40 mg Fluticasone Propionate (Flonase) 2 spr LINSEY DAILY [facility] Last Admin: 08/13/16 08:08 Dose: 2 spr Furosemide (Lasix) 40 mg PO DAILY [facility] Last Admin: 08/13/16 08:08 Dose: 40 mg Guaifenesin/Dextromethorphan (Robitussin Dm) 5 ml PO Q8 PRN PRN Reason: Cough Last Admin: 08/13/16 21:17 Dose: 5 ml Ceftriaxone Sodium 1 gm/ (Sodium Chloride) 100 mls @ 100 mls/hr IVPB DAILY@ 1700 [facility] Last Admin: 08/13/16 16:35 Dose: 100 mls/hr Levothyroxine Sodium (Synthroid) 25 mcg PO DAILY@0630 [facility] Last Admin: 08/13/16 06:43 Dose: 25 mcg Paroxetine HCl (Paxil) 30 mg PO DAILY [facility] Last Admin: 08/13/16 08:08 Dose: 30 mg Vitamin B Complex/Vit C/Folic Acid (Nephro-Berkley) 1 tab PO DAILY [facility] Last Admin: 08/13/16 08:08 Dose: 1 tab - Labs Labs: 08/09/16 07:26 08/08/16 06:41 PT 11.7 Seconds (9.8-13.1) 08/08/16 06:41 INR 1.0 (0.9-1.2) 08/08/16 06:41 APTT 25.8 Seconds (25.6-37.1) 08/08/16 06:41 Attending/Attestation - Attestation I have personally seen and examined this patient.: Yes I have fully participated in the care of the patient.: Yes I have reviewed all pertinent clinical information, including history, physical exam and plan: Yes
--- NOTE | 2016-08-13 14:46 | RAD ---
PROCEDURE: CHEST RADIOGRAPH, 1 VIEW HISTORY: SOB COMPARISON: Comparison is made to 08/10/2016 FINDINGS: LUNGS: Interval mild improvement in the left lower lung since the previous exam. Otherwise no significant interval change in the lungs. PLEURA: No pneumothorax or pleural fluid seen. CARDIOVASCULAR: Cardiac silhouette is enlarged. OSSEOUS STRUCTURES: Degenerative changes are noted at the shoulders. VISUALIZED UPPER ABDOMEN: Normal. OTHER FINDINGS: None. IMPRESSION: Interval mild improvement in the left lower lung since the previous study. Otherwise no interval change.
[2016-08-13 16:10] VITALS: RESP 20
[2016-08-13] MEDS: guaiFENesin DM 100 mg-10 mg/5 ml UD PO PRN (21:17)
[2016-08-14] MEDS: Levothyroxine 25 MCG TAB PO SCH (06:46)
[2016-08-14] MEDS: Multivitamin Vitamin B Complex (Nephro-Vite) Tab PO SCH (08:33)
[2016-08-14] MEDS: Enoxaparin 40 mg Syringe SC SCH (08:33)
[2016-08-14] MEDS ORDERED: Tmp-Smz 800 mg-160 mg DS Tab PO SCH (09:15)
--- NOTE | 2016-08-14 10:37 | CP.PCM.PN ---
Subjective - Date & Time of Evaluation Date of Evaluation: 08/14/16 Time of Evaluation: 10:35 - Subjective Subjective: Bronchoscopy results are negative for malignancy, AFB smear negative, fungal elements not seen. Routine culture reveals E coli which is resistant to ceftriaxone. Trimethoprim/ sulfa to be started today. Followup CXR shows improved aeration, but persistent left basal/retrocardiac density suggesting persistent atelectasis and probable effusion. She needs continued antibiotic therapy, inhalation therapy and chest physiotherapy. Objective - Vital Signs/Intake and Output Vital Signs (last 24 hours): Temp Pulse Resp BP Pulse Ox 97.5 F L 75 20 131/66 100 08/14/16 07:36 08/14/16 07:36 08/14/16 07:36 08/14/16 08:34 08/14/16 07:36 - Medications Medications: Current Medications Acetaminophen (Tylenol 325mg Tab) 650 mg PO Q4 PRN PRN Reason: Pain, Mild (1-3) Last Admin: 08/12/16 09:00 Dose: 650 mg Alprazolam (Xanax) 0.25 mg PO HS [facility] Stop: 08/19/16 22:31 Last Admin: 08/13/16 22:12 Dose: 0.25 mg Enoxaparin Sodium (Lovenox) 40 mg SC DAILY [facility] PRN Reason: Protocol Last Admin: 08/14/16 08:33 Dose: 40 mg Famotidine (Pepcid) 40 mg PO DAILY [facility] Last Admin: 08/14/16 08:34 Dose: 40 mg Fluticasone Propionate (Flonase) 2 spr LINSEY DAILY [facility] Last Admin: 08/14/16 08:34 Dose: 2 spr Furosemide (Lasix) 40 mg PO DAILY [facility] Last Admin: 08/14/16 08:34 Dose: 40 mg Guaifenesin/Dextromethorphan (Robitussin Dm) 5 ml PO Q8 PRN PRN Reason: Cough Last Admin: 08/13/16 21:17 Dose: 5 ml Ceftriaxone Sodium 1 gm/ (Sodium Chloride) 100 mls @ 100 mls/hr IVPB DAILY@ 1700 [facility] Last Admin: 08/13/16 16:35 Dose: 100 mls/hr Levothyroxine Sodium (Synthroid) 25 mcg PO DAILY@0630 [facility] Last Admin: 08/14/16 06:46 Dose: 25 mcg Paroxetine HCl (Paxil) 30 mg PO DAILY [facility] Last Admin: 08/14/16 08:34 Dose: 30 mg Trimethoprim/Sulfamethoxazole (Bactrim Ds Tab) 1 tab PO Q12 [facility] Vitamin B Complex/Vit C/Folic Acid (Nephro-Berkley) 1 tab PO DAILY [facility] Last Admin: 08/14/16 08:33 Dose: 1 tab - Labs Labs: 08/09/16 07:26 08/08/16 06:41 PT 11.7 Seconds (9.8-13.1) 08/08/16 06:41 INR 1.0 (0.9-1.2) 08/08/16 06:41 APTT 25.8 Seconds (25.6-37.1) 08/08/16 06:41 Assessment and Plan (1) Atelectasis Status: Acute (2) Pleural effusion Status: Acute
--- NOTE | 2016-08-14 13:46 | CP.PCM.DIS ---
Provider - Provider Date of Admission: 08/04/16 14:33 Attending physician: Eddie Infante MD Primary care physician: Eddie Infante MD Consults: Dr. Kasper- Pulmonology, Dr. Moon- PMR Time Spent in preparation of Discharge (in minutes): 30 Diagnosis - Discharge Diagnosis (1) Pneumonia Status: Resolved Priority: Low (2) Shortness of breath Status: Chronic Priority: High Hospital Course - Lab Results Lab Results: Most Recent Lab Values WBC 11.8 K/uL (4.8-10.8) H 08/09/16 07:26 RBC 3.48 Mil/uL (3.80-5.20) L 08/09/16 07:26 Hgb 9.8 g/dL (12.0-16.0) L 08/09/16 07:26 Hct 31.0 % (34.0-47.0) L 08/09/16 07:26 MCV 89.0 fl (81.0-99.0) 08/09/16 07:26 MCH 28.1 pg (27.0-31.0) 08/09/16 07:26 MCHC 31.5 g/dL (33.0-37.0) L 08/09/16 07:26 RDW 17.7 % (11.5-14.5) H 08/09/16 07:26 Plt Count 169 K/uL (130-400) 08/09/16 07:26 PT 11.7 Seconds (9.8-13.1) 08/08/16 06:41 INR 1.0 (0.9-1.2) 08/08/16 06:41 APTT 25.8 Seconds (25.6-37.1) 08/08/16 06:41 Sodium 141 mmol/l (132-148) 08/08/16 06:41 Potassium 4.0 MMOL/L (3.6-5.0) 08/08/16 06:41 Chloride 109 mmol/L (98-107) H 08/08/16 06:41 Carbon Dioxide 25 mmol/L (22-30) 08/08/16 06:41 Anion Gap 11 (10-20) 08/08/16 06:41 BUN 15 mg/dl (7-17) 08/08/16 06:41 Creatinine 0.8 mg/dL (0.7-1.2) 08/08/16 06:41 Est GFR ( Amer) > 60 08/08/16 06:41 Est GFR (Non-Af Amer) > 60 08/08/16 06:41 POC Glucose (mg/dL) 141 mg/dL (65-110) H 08/14/16 10:48 Random Glucose 108 mg/dL (65-105) H 08/08/16 06:41 Calcium 8.2 mg/dL (8.4-10.2) L 08/08/16 06:41 Total Bilirubin 0.2 mg/dl (0.2-1.3) 08/06/16 08:20 AST 24 U/L (14-36) 08/06/16 08:20 ALT 23 U/L (9-52) 08/06/16 08:20 Alkaline Phosphatase 115 U/L (38-126) 08/06/16 08:20 Total Protein 5.1 G/DL (6.3-8.2) L 08/06/16 08:20 Albumin 2.2 g/dL (3.5-5.0) L 08/06/16 08:20 Globulin 2.9 gm/dL (2.2-3.9) 08/06/16 08:20 Albumin/Globulin Ratio 0.8 (1.0-2.1) L 08/06/16 08:20 - Hospital Course Hospital Course: 81 yr old F admitted to TCU for acute rehab and medical optimization d/t deconditioning. Patient was transfered from the floor where she was admitted for SOB and found to have left pleural effusion and is s/p left thoracentesis with removal of 700cc, with visible LLL pneumonia treated with IV Ceftriaxone, and O2 destauration to 80's when off of supplemental O2. Patient is s/p flexible bronchoscopy, is stable, tolerating PO diet and with improved cough, pneumonia resolved. She has a PMHx of COPD (oxygen dependent), NIDDM, HTN, pancreatic mass, Arthritis, Anxiety, Mild CKD s/p HD (last on 07/2016). Bronchial culture was positive for E. Coli sensitive to Bactrim. She will be discharged home with supplemental O2, Bactrim and to resume home meds. She will follow up outpatient with her PMD Dr. Infante and Pulmonology- Dr. Kasper. - Date & Time of H&P Date of H&P: 08/05/16 Time of H&P: 16:37 Discharge Exam - Head Exam Head Exam: ATRAUMATIC, NORMOCEPHALIC - Eye Exam Eye Exam: EOMI, PERRL - ENT Exam ENT Exam: Mucous Membranes Moist - Neck Exam Neck exam: Full Rom (no lymphadenopathy) - Respiratory Exam Respiratory Exam: NORMAL BREATHING PATTERN. absent: Accessory Muscle Use, Respiratory Distress - Cardiovascular Exam Cardiovascular Exam: REGULAR RHYTHM, +S1, +S2 - GI/Abdominal Exam GI & Abdominal Exam: Normal Bowel Sounds, Soft (obese). absent: Distended, Tenderness - Extremities Exam Extremities exam: full ROM (no pedal edema) - Back Exam Back exam: absent: CVA tenderness (L), CVA tenderness (R) - Neurological Exam Neurological exam: Alert, CN II-XII Intact, Oriented x3 - Psychiatric Exam Psychiatric exam: Normal Affect, Normal Mood - Skin Skin Exam: Dry, Intact, Warm Discharge Plan - Discharge Medications Prescriptions: PARoxetine [Paxil] 30 mg PO DAILY #30 tab Sulfamethoxazole/Trimethoprim [Bactrim DS 800 mg-160 mg] 1 tab PO Q12 #14 tab - Follow Up Plan Condition: GOOD Disposition: HOME/ ROUTINE Additional Instructions: -Follow up with Dr. Infante within 1 week -Follow up with Dr. Kasper-Pulmonology as needed. Referrals: Eddie Infante MD [Primary Care Provider] -
[2016-08-14 16:46] VITALS: BP 174/79; PULSE 74; TEMP 98.2; O2SAT 96
== END 2016-08-14 18:10 | disposition home health service (06) | DRG 190 ==
LOC: H.TCU 08-04 14:33
PROVIDERS: ADMIT Family Medicine; ATTEND Family Medicine
PROC: F07Z9FZ Gait Training/Functional Ambulation Treatment using Assistive, Adaptive, Supportive or Protective Equipment (ICD-10-PCS; principal; 2016-08-04)
PROC: 3E0F73Z Introduction of Anti-inflammatory into Respiratory Tract, Via Natural or Artificial Opening (ICD-10-PCS; 2016-08-04)
PROC: 3E0F7GC Introduction of Other Therapeutic Substance into Respiratory Tract, Via Natural or Artificial Opening (ICD-10-PCS; 2016-08-04)
PROC: F08Z4FZ Home Management Treatment using Assistive, Adaptive, Supportive or Protective Equipment (ICD-10-PCS; 2016-08-05)
PROC: F07 Physical Rehabilitation and Diagnostic Audiology, Rehabilitation, Motor Treatment (ICD-10-PCS; 2016-08-05)
PROC: 3E0U33Z Introduction of Anti-inflammatory into Joints, Percutaneous Approach (ICD-10-PCS; 2016-08-08)
PROC: 3E0U3BZ Introduction of Anesthetic Agent into Joints, Percutaneous Approach (ICD-10-PCS; 2016-08-08)
DX: J44.0 Chronic obstructive pulmonary disease with (acute) lower respiratory infection (principal); J18.9 Pneumonia, unspecified organism; J90 Pleural effusion, not elsewhere classified; E11.22 Type 2 diabetes mellitus with diabetic chronic kidney disease; F03.90 Unspecified dementia, unspecified severity, without behavioral disturbance, psychotic disturbance, mood disturbance, and anxiety; J98.11 Atelectasis; M17.0 Bilateral primary osteoarthritis of knee; G89.29 Other chronic pain; N18.2 Chronic kidney disease, stage 2 (mild); Z99.81 Dependence on supplemental oxygen; E03.9 Hypothyroidism, unspecified; D64.9 Anemia, unspecified; E78.00 Pure hypercholesterolemia, unspecified; I12.9 Hypertensive chronic kidney disease with stage 1 through stage 4 chronic kidney disease, or unspecified chronic kidney disease; F41.9 Anxiety disorder, unspecified; F32.9 Major depressive disorder, single episode, unspecified; Z16.19 Resistance to other specified beta lactam antibiotics; Z87.01 Personal history of pneumonia (recurrent)

== ENCOUNTER 2016-08-09 09:24 | Day surgery (SDC) | payer MEDICARE, MEDICAID ==
[2016-08-09] MEDS ORDERED: Lidocaine 1% Inj (20ml) ONE (09:27)
[2016-08-09] MEDS ORDERED: EPINEPHrine 1 mg/ml (1:1000) Inj ONE (09:28)
[2016-08-09] MEDS ORDERED: Sodium Chloride 0.9% 20 ML IV ONE (09:29)
--- NOTE | 2016-08-09 11:07 | CP.SDSHP ---
Same Day Surgery H & P - History Proposed Procedure: Flexible bronchoscopy Pre-Op Diagnosis: Left lower lobe segmental atelectasis, impacted airways secretions. - Previous Medical/Surgical History Cardiac: Hypertension Pulmonary: Emphysema/COPD Endocrine/Metabolic: Diabetes Pain: 0. No Pain Previous Surgical History: Cholecystectomy - Allergies Allergies: Allergies ambien Adverse Reaction (Severe, Uncoded 05/11/16 17:37) HEADACHE Violent Behavior - Physical Exam Vital Signs: Vital Signs 08/09/16 10:58 Pulse Rate 89 Mental Status: Alert & Oriented x3 Neuro: Other (anxious, tremulous) Heart: WNL Lungs: Other (absent breath sounds left base) GI: WNL - Impression Impression: LLL segmental atelectasis Pt. Evaluated Today:Candidate for Anesthesia & Procedure: Yes - Date & Time Date: 08/09/16 Time: 11:12 Short Stay Discharge - Short Stay Discharge Admitting Diagnosis/Reason for Visit: J98.11 Disposition: HOME/ ROUTINE Referrals: Eddie Holm MD [Primary Care Provider] -
[2016-08-09 11:09] VITALS: RESP 18
[2016-08-09] MEDS ORDERED: Lidocaine 2% Jelly (5 ml) TOP ONE (11:09)
[2016-08-09] MEDS ORDERED: Lactated Ringer's 1,000 ML IV ONE (11:30)
[2016-08-09] MEDS ORDERED: Lidocaine 1% Inj (20ml) IJ ONE (11:55)
[2016-08-09] MEDS ORDERED: Lactated Ringer's 1,000 ML IV SCH (12:09)
[2016-08-09 14:57] VITALS: BP 143/77; PULSE 81; TEMP 98.5; O2SAT 96
== END 2016-08-09 15:04 | disposition still patient (30) ==
LOC: H.OPSURG 09:24
PROVIDERS: ATTEND Internal Medicine Pulmonary Disease
DX: J98.11 Atelectasis (principal); J44.9 Chronic obstructive pulmonary disease, unspecified; E78.5 Hyperlipidemia, unspecified; E03.9 Hypothyroidism, unspecified; N18.6 End stage renal disease; E11.22 Type 2 diabetes mellitus with diabetic chronic kidney disease; I12.0 Hypertensive chronic kidney disease with stage 5 chronic kidney disease or end stage renal disease
CPT/HCPCS: 31622; 82948; 87015; 87070; 87101; 87116; 87181; 87206; 88104; 88305; J0171; J7120

== ENCOUNTER 2017-03-20 15:52 | Inpatient (IN) | payer MEDICARE, MEDICAID ==
[2017-03-20 16:53] VITALS: BMI 35.5
[2017-03-20] MEDS ORDERED: Iohexol 240 (50 ml) PO ONE (16:53)
[2017-03-20 17:56] LABS: BASO # 0.1 K/uL (0.0-0.2); BASO % 1.1 % (0.0-2.0); EOS # 0.2 K/uL (0.0-0.7); EOS % 1.2 % (0.0-4.0); HEMOGLOBIN 11.7 g/dL (12.0-16.0); LYMPH # 1.8 K/uL (1.0-4.3); LYMPH % 13.6 % (20.0-40.0); MEAN CELL VOLUME 80.8 fl (81.0-99.0); MEAN CORPUSCULAR HEMOGLOBIN 25.9 pg (27.0-31.0); MEAN CORPUSCULAR HGB CONC 32.1 g/dL (33.0-37.0); MEAN PLATELET VOLUME 8.6 fl (7.2-11.7); MONO # 0.8 K/uL (0.0-0.8); MONO % 6.2 % (0.0-10.0); NEUT # 10.4 K/uL (1.8-7.0); NEUT % 77.9 % (50.0-75.0); NRBC % 0.1 % (0.0-0.0); RBC 4.53 Mil/uL (3.80-5.20); RED CELL DISTRIBUTION WIDTH 18.2 % (11.5-14.5); WHITE BLOOD COUNT 13.4 K/uL (4.8-10.8)
[2017-03-20 18:00] LABS: INR 1.1 (0.9-1.2); PARTIAL THROMBOPLASTIN TIME 32.9 Seconds (25.6-37.1)
[2017-03-20 18:12] LABS: ALB/GLOB RATIO 0.9 (1.0-2.1); ALBUMIN 3.6 g/dL (3.5-5.0); CALCIUM 8.7 mg/dL (8.4-10.2); MAGNESIUM 1.8 MG/DL (1.6-2.3)
[2017-03-20] MEDS ORDERED: Sodium Chloride 0.9% 1,000 ML IV STA ×2 (18:22→19:26)
--- NOTE | 2017-03-20 18:28 | ED PDOC ---
HPI: Abdomen Time Seen by Provider: 03/20/17 16:01 Chief Complaint (Nursing): GI Problem Chief Complaint (Provider): Diarrhea History Per: Patient History/Exam Limitations: no limitations Onset/Duration Of Symptoms: Days (x6) Current Symptoms Are (Timing): Still Present Location Of Pain/Discomfort: Diffuse, LLQ Associated Symptoms: Chills, Nausea Additional Complaint(s): 81 year old female with a past medical history of HTN, diabetes, hypercholesterolemia, COPD, and morbid obesity, who presents to the ED complaining of diarrhea x6 days. States she also developed body aches and chills today which is why she presented to the ED. Also reports nausea and decreased appetite, but no vomiting. Also complaining of intermitted abdominal cramping, malaise, and fatigue. Patient is bedridden. PMD: Eddie Holm Past Medical History Reviewed: Historical Data, Nursing Documentation, Vital Signs Vital Signs: Last Vital Signs Temp 100.3 F H 03/24/17 16:22 Pulse 99 H 03/24/17 16:22 Resp 20 03/24/17 16:22 BP 104/76 03/24/17 16:22 Pulse Ox 96 03/24/17 16:22 - Medical History PMH: Anxiety, Arthritis (BOTH KNEES), CAD, COPD, Dementia, Depression, Diabetes , HTN (NOT ON ANY MEDS), Hypercholesterolemia (NOT ON ANY MEDS), Hypothyroidism , Pneumonia, End Stage Renal Disease, Chronic Kidney Disease, Seizures Denies: Atrial Fibrillation, Cardia Arrhythmia, CHF, HIV, Mitral Valve Prolapse, Peripheral Edema - Surgical History Surgical History: Cholecystectomy Denies: Pacemaker - Family History Family History: States: Unknown Family Hx - Immunization History Hx Tetanus Toxoid Vaccination: Yes - Home Medications Home Medications: Ambulatory Orders Medication Instructions Recorded ALPRAZolam [Xanax] 0.25 mg PO HS 07/14/16 Levothyroxine [Synthroid] 25 mcg PO DAILY 07/14/16 Pantoprazole Sodium [Protonix] 40 mg PO DAILY 07/14/16 Acetaminophen [Tylenol 325mg tab] 650 mg PO Q4 PRN tab 08/04/16 guaiFENesin/Dextromethorphan 5 ml PO Q8H PRN 08/04/16 [Robitussin DM] Vitamin B Complex [Balance B-100] 1 tab PO DAILY 08/09/16 PARoxetine [Paxil] 30 mg PO DAILY #30 tab 08/14/16 Sulfamethoxazole/Trimethoprim 1 tab PO Q12 #14 tab 08/14/16 [Bactrim DS 800 mg-160 mg] - Allergies Allergies/Adverse Reactions: Allergies Allergy/AdvReac Type Severity Reaction Status Date / Time william AdvReac Severe HEADACHE Uncoded 03/20/17 16:47 Review of Systems ROS Statement: Except As Marked, All Systems Reviewed And Found Negative (as per HPI) Constitutional: Positive for: Chills, Malaise Gastrointestinal: Positive for: Nausea, Abdominal Pain (intermittent cramping). Negative for: Vomiting Musculoskeletal: Positive for: Leg Pain (bilateral chronic edema and weakness), Other (body aches) Physical Exam - Reviewed Nursing Documentation Reviewed: Yes Vital Signs Reviewed: Yes - Physical Exam Appears: Positive for: Non-toxic, In Acute Distress (chronically ill) Head Exam: Positive for: ATRAUMATIC, NORMOCEPHALIC Skin: Positive for: Warm, Dry Eye Exam: Positive for: EOMI, PERRL ENT: Positive for: Other (dry mucus membranes) Neck: Positive for: Painless ROM, Supple Cardiovascular/Chest: Positive for: Chest Non Tender, Edema. Negative for: Murmur Respiratory: Negative for: Wheezing, Respiratory Distress Gastrointestinal/Abdominal: Positive for: Soft, Tenderness, Other (protuberant abdomen). Negative for: Mass, Guarding Extremity: Positive for: Swelling. Negative for: Deformity Neurologic/Psych: Positive for: Alert. Negative for: Motor/Sensory Deficits - Laboratory Results Result Diagrams: 03/24/17 06:00 03/24/17 06:00 Medical Decision Making Medical Decision Making: Time: 16:53 Initial Impression: Diarrhea and chills. Differentials= diagnoses include, but are not limited to colitis, gastroenteritis, diverticulitis, dehydration, and electrolyte abnormalities Plan: --Blood type and screen --CT Abd and pelvis --EKG --BNP --CMP --Lipase --Magnesium --Phosphorus --Troponin I --ED Urine dipstick --CBC w/ differential --PTT --PT --Portable Chest X-Ray --Sodium Chloride 1,000 mls/hr --Iohexol 50 ml PO --Blood culture --Urine culture --IV insertion --Urinalysis --Reevaluation Time: 18:22 --US duplex lower extremities --Tylenol 975 mg PO --Reevaluation Time: 20:13 US Duplex Bilateral Lower Extremity Veins: Right deep veins: Normal color and spectral Doppler flow. Normal compressibility. No deep vein thrombosis from common femoral to popliteal vein. Right superficial veins: Unremarkable. Left deep veins: Normal color and spectral Doppler flow. Normal compressibility. No deep vein thrombosis from common femoral to popliteal vein. Left superficial veins: Unremarkable. Soft tissues: No popliteal cyst. IMPRESSION: 1. No evidence of DVT within lower extremities. Time: 20:49 CT Abdomen and Pelvis Findings: Limitations: Lack of intravenous contrast. Motion artifact - mild. Lower thorax: Mild cardiomegaly. Trace pericardial effusion. Mild peripheral atelectasis/scarring. Small hiatal hernia. ABDOMEN: Liver: Unremarkable. Gallbladder and bile ducts: Cholecystectomy. No significant ductal dilation. Pancreas: 6.1 x 4.9 x 5.6 cm hypodense lesion within head of pancreas, similar to minimally increased in size. No ductal dilation. Spleen: No splenomegaly. Adrenals: No mass. Kidneys and ureters: Mild atrophy of kidneys. No renal calculi. Stomach and bowel: Few scattered diverticula within colon. No associated inflammatory stranding. Segmental areas of probable underdistention of colon. No definite mural thickening. No obstruction. Appendix: No findings to suggest acute appendicitis. PELVIS: Bladder: Unremarkable. No stones. Reproductive: 2.9 x 2.2 x 2.9 cm hypodense lesion within LEFT ovary, grossly stable. ABDOMEN and PELVIS: Intraperitoneal space: No significant fluid collection. No free air. Bones/joints: Mild compression fracture T12 vertebral body, likely subacute. Distracted fracture inferior aspect L4 vertebral body, acute or subacute. Underlying lesion not excluded. Soft tissues: Diffuse eventration anterior abdominal wall, grossly stable. Vasculature: Moderate atherosclerotic disease. No aneurysm. Lymph nodes: No pathologically enlarged lymph nodes. IMPRESSION: 1. Pancreatic lesion, indeterminate. Neoplasm not excluded. Followup as clinically warranted. 2. Adnexal lesion. Followup is recommended. 3. L4 fracture. Suggest MRI. 4. Incidental/non-acute findings are described above. Labs consistent with UTI and sepsis, in pt with multiple comorbidities and diarrhea (anticipating continued fluid losses) needs hospitalization [facility] resident for Dr Naresh BONNER Scribe Attestation: Documented by Sony Vargas, acting as a scribe for Anne Marie Burroughs MD. Provider Scribe Attestation: All medical record entries made by the Scribe were at my direction and personally dictated by me. I have reviewed the chart and agree that the record accurately reflects my personal performance of the history, physical exam, medical decision making, and the department course for this patient. I have also personally directed, reviewed, and agree with the discharge instructions and disposition. Disposition - Clinical Impression Clinical Impression: UTI (urinary tract infection), bacterial, Sepsis Counseled Patient/Family Regarding: Studies Performed, Diagnosis - Disposition Disposition Time: 22:00 Condition: GUARDED - Pt Status Changed To: Hospital Disposition Of: Inpatient - Admit Certification Admit to Inpatient:: After my assessment, the patient will require hospitalization for at least two midnights. This is because of the severity of symptoms shown, intensity of services needed, and/or the medical risk in this patient being treated as an outpatient. - POA Present On Arrival: Pressure Ulcer
[2017-03-20 18:32] LABS: TROPONIN I 0.035 ng/mL (0.00-0.120)
[2017-03-20] MEDS ORDERED: Iohexol 240 (50 ml) ONE (19:01)
[2017-03-20 19:45] LABS: VENOUS BLOOD GAS BASE EXCESS 3.6 mmol/L (0.0-2.0); VENOUS BLOOD GAS PCO2 63 mmHg (40-60); VENOUS BLOOD GAS PO2 24 mm/Hg (30-55); VENOUS BLOOD PH 7.31 (7.32-7.43)
--- NOTE | 2017-03-20 20:13 | US ---
EXAM: US Duplex Bilateral Lower Extremity Veins CLINICAL HISTORY: 81 years old, female; Signs and symptoms; Swelling of limb; Lower extremity, bilateral; Additional info: Leg swelling bilateral TECHNIQUE: Real-time ultrasound scan of the veins of the bilateral lower extremities with color Doppler flow, spectral waveform analysis and compression. COMPARISON: No relevant prior studies available. FINDINGS: Right deep veins: Normal color and spectral Doppler flow. Normal compressibility. No deep vein thrombosis from common femoral to popliteal vein. Right superficial veins: Unremarkable. Left deep veins: Normal color and spectral Doppler flow. Normal compressibility. No deep vein thrombosis from common femoral to popliteal vein. Left superficial veins: Unremarkable. Soft tissues: No popliteal cyst. IMPRESSION: 1. No evidence of DVT within lower extremities.
--- NOTE | 2017-03-20 20:49 | CT ---
EXAM: CT Abdomen and Pelvis Without Intravenous Contrast CLINICAL HISTORY: 81 years old, female; Signs and symptoms; Other: Diarrhea, cramping; Prior surgery; Surgery date: 6+ months; Surgery type: Cholecystectomy; Additional info: Abd pain diarrhea TECHNIQUE: Axial computed tomography images of the abdomen and pelvis without intravenous contrast. All CT scans at this facility use one or more dose reduction techniques, viz.: automated exposure control; ma/kV adjustment per patient size (including targeted exams where dose is matched to indication; i.e. head); or iterative reconstruction technique. Coronal and sagittal reformatted images were created and reviewed. COMPARISON: CT - ABD PELVIS W/O PO OR IV CONT 2016-07-14 13:44 FINDINGS: Limitations: Lack of intravenous contrast. Motion artifact - mild. Lower thorax: Mild cardiomegaly. Trace pericardial effusion. Mild peripheral atelectasis/scarring. Small hiatal hernia. ABDOMEN: Liver: Unremarkable. Gallbladder and bile ducts: Cholecystectomy. No significant ductal dilation. Pancreas: 6.1 x 4.9 x 5.6 cm hypodense lesion within head of pancreas, similar to minimally increased in size. No ductal dilation. Spleen: No splenomegaly. Adrenals: No mass. Kidneys and ureters: Mild atrophy of kidneys. No renal calculi. Stomach and bowel: Few scattered diverticula within colon. No associated inflammatory stranding. Segmental areas of probable underdistention of colon. No definite mural thickening. No obstruction. Appendix: No findings to suggest acute appendicitis. PELVIS: Bladder: Unremarkable. No stones. Reproductive: 2.9 x 2.2 x 2.9 cm hypodense lesion within LEFT ovary, grossly stable. ABDOMEN and PELVIS: Intraperitoneal space: No significant fluid collection. No free air. Bones/joints: Mild compression fracture T12 vertebral body, likely subacute. Distracted fracture inferior aspect L4 vertebral body, acute or subacute. Underlying lesion not excluded. Soft tissues: Diffuse eventration anterior abdominal wall, grossly stable. Vasculature: Moderate atherosclerotic disease. No aneurysm. Lymph nodes: No pathologically enlarged lymph nodes. IMPRESSION: 1. Pancreatic lesion, indeterminate. Neoplasm not excluded. Followup as clinically warranted. 2. Adnexal lesion. Followup is recommended. 3. L4 fracture. Suggest MRI. 4. Incidental/non-acute findings are described above.
[2017-03-20 22:22] LABS: SQUAMOUS EPITHIAL < 1 /hpf (0-5); URINE BACTERIA MANY (<OCC); URINE BILIRUBIN NEGATIVE (NEGATIVE); URINE BLOOD NEGATIVE (NEGATIVE); URINE CLARITY CLOUDY (Clear); URINE COLOR AMBER (YELLOW); URINE GLUCOSE (UA) NEG (Normal); URINE LEUKOCYTE ESTERASE LARGE Leu/uL (Negative); URINE NITRATE NEGATIVE (NEGATIVE); URINE PROTEIN 100 mg/dL (NEGATIVE); WBC CLUMPS MANY /hpf
[2017-03-20] MEDS ORDERED: Ciprofloxacin 400mg/200ml D5W 400 MG/200 ML BAG IV STA (22:25)
[2017-03-20] MEDS ORDERED: metroNIDAZOLE 500mg/100ml NS 100 ML IV STA (22:25)
[2017-03-20] MEDS ORDERED: metroNIDAZOLE 500mg/100ml NS 100 ML IVPB ONE (22:53)
[2017-03-20] MEDS ORDERED: Ciprofloxacin 400mg/200ml D5W 400 MG/200 ML BAG IVPB ONE (22:53)
--- NOTE | 2017-03-20 23:38 | CP.PCM.HP ---
<Manjeet Sanchez - Last Filed: 03/21/17 02:56> History of Present Illness - History of Present Illness History of Present Illness: PMD: Dr Holm Hx taken mostly from previous records and ED physician, since patient has dementia and no family member was present at the time of exam. 81 y/o F with PMHx of Dementia, NIDDM, Hypercholesterolemia, Pleural effusions, COPD, HTN, presents to ED with nurse aid, by ambulance with c/o abd pain, diarrhea x 6 days and more recently malaise and body aches. Patient is bedridden and has a nurse aid that help her with ADLs at home. She had been previously admitted to out hospital with pleural effusions and resp difficulty. At the time of the exam at ED patient is partially oriented and confused at times, unable to provide accurate information about her health status or PMHx. She knows that she is in the hosp and her name but is disoriented to time. She states however that she has had only 1 episode of diarrhea today. Admits feeling her moth dry upon being questioned as well as B/L chronic back and knee pain. Denies CP or SOB. As per ED nurse, she was told by family member earlier today that patient has difficulty swallowing thin liquids. ED course: VS initially temp 99s and RR and HR WNL then temp 100.1 rectal, RR 26 and HR 115. BP stayed WNL EKG: RBBB, Atrial enlargement no acute ischemic changes CXR: Likely L/lung base effusion: Pending official report. Patient has hx of PE in the past. No previous Echo found CMP: GFR 39, BUN WNL, Creat 1.3, ALT WNL, AST and Bili slightly elevated. Electrolytes unremarkable except K elevated but Hemolyzed VBG: K =3.4, Lactate WNL CBC: WBC =13.4 with elevated neutrophils, Hgb 11.7 UA: + for LE, Bacteria, WBC and Yeast CT abd and pelvis: Unremarkable. Except: Pancreatic lesion, indeterminate. Neoplasm not excluded. Followup as clinically warranted. Adnexal lesion. Follow up is recommended. L4 fracture. Suggest MRI.(please see full report) BCx and UCx collected LE US: no DVT B/L Meds: Cipro 400 mg IV and Flagyl 500 mg IV once IV fluids 1250 ml(total) + Abx dilution Tylenol NC 650 mg once Home meds: Unable to contact Ph due to pharmacy working hours to verify home meds Present on Admission - Present on Admission Any Indicators Present on Admission: Yes Decubitus Ulcer Present: Yes Decubitus Ulcer Stage: I Review of Systems - Review of Systems All systems: reviewed and no additional remarkable complaints except Review of Systems: Difficult to asses due to patient's mental status - EENT Nose/Mouth/Throat: Dry Mouth - Gastrointestinal Gastrointestinal: Diarrhea - Musculoskeletal Musculoskeletal: Arthralgias, Back Pain Past Patient History - Past Medical History & Family History Past Medical History?: Yes - Past Social History Smoking Status: Never Smoked - CARDIAC Hx Atrial Fibrillation: No Hx Cardia Arrhythmia: No Hx Congestive Heart Failure: No Hx Hypercholesterolemia: Yes (NOT ON ANY MEDS) Hx Hypertension: Yes (NOT ON ANY MEDS) Hx Mitral Valve Prolapse: No Hx Pacemaker: No Hx Peripheral Edema: No - PULMONARY Hx Chronic Obstructive Pulmonary Disease (COPD): Yes Hx Pneumonia: Yes - NEUROLOGICAL Hx Dementia: Yes Hx Seizures: Yes - HEENT Hx HEENT Problems: Yes - RENAL Hx Chronic Kidney Disease: Yes - ENDOCRINE/METABOLIC Hx Hypothyroidism: Yes - HEMATOLOGICAL/ONCOLOGICAL Hx Human Immunodeficiency Virus (HIV): No - INTEGUMENTARY Hx Dermatological Problems: No - MUSCULOSKELETAL/RHEUMATOLOGICAL Hx Arthritis: Yes (BOTH KNEES) - GASTROINTESTINAL Hx Gastrointestinal Disorders: No - GENITOURINARY/GYNECOLOGICAL Hx Genitourinary Disorders: No - PSYCHIATRIC Hx Anxiety: Yes Hx Depression: Yes - SURGICAL HISTORY Hx Cholecystectomy: Yes - ANESTHESIA Hx Anesthesia: Yes Hx Anesthesia Reactions: No Hx Malignant Hyperthermia: No Meds Allergies/Adverse Reactions: Allergies Allergy/AdvReac Type Severity Reaction Status Date / Time ambien AdvReac Severe HEADACHE Uncoded 03/20/17 16:47 Physical Exam - Constitutional Appears: No Acute Distress, Confused, Chronically Ill - Head Exam Head Exam: ATRAUMATIC - Eye Exam Eye Exam: EOMI Pupil Exam: PERRL - ENT Exam ENT Exam: Mucous Membranes Dry (Slightly) - Neck Exam Neck exam: Positive for: Normal Inspection. Negative for: Tenderness - Respiratory Exam Respiratory Exam: Decreased Breath Sounds (L/base), NORMAL BREATHING PATTERN. absent: Accessory Muscle Use, Rales, Wheezes - Cardiovascular Exam Cardiovascular Exam: REGULAR RHYTHM, +S1, +S2 - GI/Abdominal Exam GI & Abdominal Exam: Normal Bowel Sounds, Soft, Tenderness (Diffuse, mild). absent: Distended, Guarding, Rebound - Extremities Exam Extremities exam: Positive for: normal capillary refill, pedal edema, tenderness (Limited ROM both knees due to pain). Negative for: calf tenderness , normal inspection (skin excoriation L/anterior leg. B/L leg erythema and swelling) - Back Exam Back exam: rash noted (sacrum). absent: CVA tenderness (L), CVA tenderness (R) - Neurological Exam Neurological exam: Alert Additional comments: Disoriented to time and confused at times. - Skin Skin Exam: Dry (Mild), Erythema (B/L legs) Results - Vital Signs Recent Vital Signs: Last Vital Signs Temp 100.1 F H 03/20/17 23:13 Pulse 115 H 03/20/17 23:13 Resp 26 H 03/20/17 23:13 BP 131/66 03/20/17 23:13 Pulse Ox 91 L 03/20/17 23:13 - Labs Result Diagrams: 03/20/17 17:35 03/20/17 17:35 Labs: Laboratory Results - last 24 hr 03/20/17 03/20/17 03/20/17 17:35 17:35 17:35 WBC 13.4 H RBC 4.53 Hgb 11.7 L Hct 36.6 MCV 80.8 L D MCH 25.9 L MCHC 32.1 L RDW 18.2 H Plt Count 280 D MPV 8.6 Neut % (Auto) 77.9 H Lymph % (Auto) 13.6 L [place] % (Auto) 6.2 Eos % (Auto) 1.2 Baso % (Auto) 1.1 Neut # 10.4 H Lymph # 1.8 [place] # 0.8 Eos # 0.2 Baso # 0.1 PT 12.0 INR 1.1 APTT 32.9 pO2 VBG pH VBG pCO2 VBG HCO3 VBG Total CO2 VBG O2 Sat (Calc) VBG Base Excess VBG Potassium Glucose Lactate FiO2 Sodium 135 Potassium 5.7 H Chloride 96 L Carbon Dioxide 29 Anion Gap 16 BUN 17 Creatinine 1.3 H Est GFR ( Amer) 47 Est GFR (Non-Af Amer) 39 POC Glucose (mg/dL) Random Glucose 111 H Calcium 8.7 Phosphorus 4.1 Magnesium 1.8 Total Bilirubin 2.2 H AST 79 H ALT 10 Alkaline Phosphatase 111 Troponin I 0.0350 NT-Pro-B Natriuret Pep 366 Total Protein 7.3 Albumin 3.6 Globulin 3.8 Albumin/Globulin Ratio 0.9 L Lipase 25 Venous Blood Potassium Urine Color Urine Clarity Urine pH Ur Specific [place] Urine Protein Urine Glucose (UA) Urine Ketones Urine Blood Urine Nitrate Urine Bilirubin Urine Urobilinogen Ur Leukocyte Esterase Urine RBC (Auto) Urine WBC Clumps (Auto) Urine Microscopic WBC Ur Squamous Epith Cells Urine Bacteria Urine Yeast (Budding) 03/20/17 03/20/17 03/20/17 19:36 22:09 23:14 WBC RBC Hgb Hct MCV MCH MCHC RDW Plt Count MPV Neut % (Auto) Lymph % (Auto) [place] % (Auto) Eos % (Auto) Baso % (Auto) Neut # Lymph # [place] # Eos # Baso # PT INR APTT pO2 24 L VBG pH 7.31 L VBG pCO2 63 H VBG HCO3 26.1 VBG Total CO2 33.6 H VBG O2 Sat (Calc) 45.2 VBG Base Excess 3.6 H VBG Potassium 3.4 L Glucose 109 H Lactate 1.5 FiO2 21.0 Sodium 134.0 Potassium Chloride 97.0 L Carbon Dioxide Anion Gap BUN Creatinine Est GFR ( Amer) Est GFR (Non-Af Amer) POC Glucose (mg/dL) 97 Random Glucose Calcium Phosphorus Magnesium Total Bilirubin AST ALT Alkaline Phosphatase Troponin I NT-Pro-B Natriuret Pep Total Protein Albumin Globulin Albumin/Globulin Ratio Lipase Venous Blood Potassium 3.4 L Urine Color [place] Urine Clarity Cloudy Urine pH 5.0 Ur Specific [place] 1.015 Urine Protein 100 Urine Glucose (UA) Neg Urine Ketones Trace Urine Blood Negative Urine Nitrate Negative Urine Bilirubin Negative Urine Urobilinogen 2.0 H Ur Leukocyte Esterase Large Urine RBC (Auto) 3 Urine WBC Clumps (Auto) Many H Urine Microscopic WBC 344 H Ur Squamous Epith Cells < 1 Urine Bacteria Many H Urine Yeast (Budding) Occ H Assessment & Plan - Assessment and Plan (Free Text) Assessment: 81 y/o F with PMHx of NIDDM, Dementia and COPD admitted for UTI/Sepsis Sepsis/SIRS -acute, present on admission -Poss source urinary tract -SIRS criteria on admission with UA positive for infection -Lactate WNL -BP WNL and mental status is at patient's base line. HR and RR slightly elevated -UA + for bacteria, WBC, LE and Yeast -WBC 13.4 with high neutrophil count -CXR: L/Effusion(pending official report) -CT abd and pelvis: Kidneys atrophy, no stones and no mention of pyelonephritis signs. Stable adnexal and pancreatric mass compared to previous studies(please see full report) -F/U Ucx and Bcx -S/p Cipro and Flagyl IV once -S/p 1250 ml of IV fluids -Admit to telemetry -VS q4h -Will stop more aggressive fluid resuscitation at the time because of unknown cardiac status and the presence of poss effusion on CXR and Hx of pleural effusions in the past. -Vanco 1g IV once -Fluconazole 200 mg PO once -F/U CBC, CMP, Procalcitonin AM -Consider ID consult AM UTI, suspected -acute -UA as above -Bacterial VS Fungal -S/P Cipro 400 mg IV -Diflucan PO once -F/U UCx. UCx on 07/2016 was positive for Kleb Pneu sensitive to Cipro and Ceftriaxone -Multiple Ucx in the past positive for bienvenido. SHRAVAN -Poss due to sepsis/UTI -GFR 39, Creat 1.3 -Has hx of SHRAVAN in the past and needed HD once -Last GFR and Creat on August 2016 were WNL Left pleural effusion -likely present on CXR(waiting for radiology report) -Hx of Left side effusions in the past -PTH Sx specimen from bronchial wash and pleural fluid in August/2016 both negative for malignancy -Broncoscopy on August/2016 showed mucus plug left/lung with Cx of bronchial washing + for E.Coli ESBL resistant to Cipro, Ceftriaxone and Sensitive to Gentamycin and Imipenen(please check sensitivity report). -Consider Echocardiogram to r/o cardiac cause -F/U ProBnp, Mg B/L Lower extremity lymphangitis -Chronic -LE US neg for DVT B/L -Keep Legs elevated -Obs NIDDM -Chronic, Controlled, Accucheck at ED 90s -Not on any home meds(pending Ph verification AM) -SSI ACHS -Hypoglycemia protocol Pancreatic mass -On CT of the abd stable compared to previous CT when it was reported as cystic mass -Lipase WNL -S/P Cholecystectomy -NO signs of biliary obstruction on CT report L/adnexal mass -On CT of the abd stable compared to previous CT when it was reported as a cyst Pressure ulcer, sacrum -Likely stage 1 -Consider Wound care consult if needed Hx of dysphagia to thin liquids -as per family -dysphagia modified diet with thick liquids ordered -[employer] referral ordered -Consider swallow eval if needed Hx of Depression -C/W home meds for now Hx of Hypothyroidism -C/w home meds -F/U TSH Hx of COPD -Duoneb nebs PRN Prophylactic measures -Heparin 5000 mg SQ q8h -Florastor PO BID <Eddie Holm - Last Filed: 04/03/17 06:52> Results - Vital Signs Recent Vital Signs: Last Vital Signs Temp 99.8 F H 03/25/17 15:50 Pulse 107 H 03/25/17 15:50 Resp 20 03/25/17 15:50 BP 146/67 03/25/17 15:50 Pulse Ox 83 L 03/25/17 15:50 - Labs Result Diagrams: 03/24/17 06:00 03/24/17 06:00 Attending/Attestation - Attestation I have personally seen and examined this patient.: Yes I have fully participated in the care of the patient.: Yes I have reviewed all pertinent clinical information: Yes
[2017-03-21] MEDS ORDERED: Glucagon Recombinant 1 mg Inj IM PRN (00:29)
[2017-03-21] MEDS ORDERED: Dextrose 50% SYRINGE Inj (50 ml) IVP PRN (00:29)
[2017-03-21] MEDS ORDERED: Albuterol-Ipratrop 3 mg / 0.5 (3 ml) UD INH PRN (00:48)
[2017-03-21 06:06] LABS: BASO # 0.1 K/uL (0.0-0.2); BASO % 0.5 % (0.0-2.0); EOS # 0.2 K/uL (0.0-0.7); EOS % 1.7 % (0.0-4.0); LYMPH # 1.4 K/uL (1.0-4.3); LYMPH % 14.1 % (20.0-40.0); MEAN CELL VOLUME 84.1 fl (81.0-99.0); MEAN CORPUSCULAR HGB CONC 30.9 g/dL (33.0-37.0); MEAN PLATELET VOLUME 8.6 fl (7.2-11.7); MONO # 0.8 K/uL (0.0-0.8); NEUT # 7.2 K/uL (1.8-7.0); NEUT % 75.7 % (50.0-75.0); RBC 3.83 Mil/uL (3.80-5.20); RED CELL DISTRIBUTION WIDTH 16.5 % (11.5-14.5); WHITE BLOOD COUNT 9.6 K/uL (4.8-10.8)
[2017-03-21 06:22] LABS: INR 1.2 (0.9-1.2); LDL CHOLESTEROL 32 mg/dL (0-129); PARTIAL THROMBOPLASTIN TIME 31.3 Seconds (25.6-37.1); PROTHROMBIN TIME 13.2 Seconds (9.8-13.1)
[2017-03-21 06:33] LABS: ALB/GLOB RATIO 0.8 (1.0-2.1); ALBUMIN 2.4 g/dL (3.5-5.0); ALT/SGPT 37 U/L (9-52); AST/SGOT 32 U/L (14-36); B-TYPE NATRIURETIC PEPTIDE 346 pg/ml (0-900); BLOOD UREA NITROGEN 14 mg/dl (7-17); CALCIUM 7.5 mg/dL (8.4-10.2); GFR AFRICAN-AMERICAN > 60; GFR NON-AFRICAN AMERICAN 53; HDL CHOLESTEROL 23 MG/DL (30-70); MAGNESIUM 1.5 MG/DL (1.6-2.3)
[2017-03-21] MEDS: Levothyroxine 25 MCG TAB PO SCH (06:37)
[2017-03-21] MEDS: Insulin Regular 100 units/ml SC SCH ×4 (06:38→21:50)
[2017-03-21] MEDS: Saccharomyces Boulardi 250 mg Cap PO SCH ×2 (09:15→17:53)
[2017-03-21] MEDS: Pantoprazole 40 mg EC Tab PO SCH (09:16)
--- NOTE | 2017-03-21 10:23 | CP.PCM.PN ---
<IniguezAlexiso - Last Filed: 03/21/17 16:10> Subjective - Date & Time of Evaluation Date of Evaluation: 03/21/17 Time of Evaluation: 07:15 - Subjective Subjective: 81 y/o F admitted for evaluation and management of suspected sepsis. Pt with a PMHx of dementia, responsive to tactile and auditory stimulation, is verbal and reports feeling OK with NO chest pain, abdominal pain or nausea. Pt is aware that she is in the hospital. No acute events overnight. Pt afebrile. Pharmacy, [facility], was contacted, pt currently on the following medications: -Hydrocortisone 20 mg -Xanax 1mg -Hydrocortisone ointment -Flonase -Losartan 100mg -Folic acid 1mg -Allopurinol 100mg Results: -CXR on 03/20/17 showed a new round opacity right upper madelin-thorax common non- specific. Consider further evaluation with CT scan. -EKG on 03/20/17 showed sinus tachycardia, possible L atrial enlargement, L axis deviation and RBBB. -TSH 0.94-WNL on 03/21/17 -GJ-Zhy-O-Natriuretic peptide: 346-WNL. -Pro-calcitonin 6.59-elevated Objective - Vital Signs/Intake and Output Vital Signs (last 24 hours): Temp Pulse Resp BP Pulse Ox 98.9 F 102 H 18 119/71 96 03/21/17 07:32 03/21/17 07:32 03/21/17 07:32 03/21/17 07:32 03/21/17 07:32 Intake and Output: 03/21/17 03/21/17 06:59 18:59 Intake Total 750 Output Total 550 Balance 200 - Medications Medications: Current Medications Acetaminophen (Tylenol 325mg Tab) 650 mg PO Q6 PRN PRN Reason: Fever >100.4 F Albuterol/Ipratropium (Duoneb 3 Mg/0.5 Mg (3 Ml) Ud) 3 ml INH RQ6 PRN PRN Reason: Shortness of Breath Alprazolam (Xanax) 0.25 mg PO HS [facility] Stop: 03/28/17 22:01 Dextrose (Dextrose 50% Inj) 0 ml IVP STAT PRN; Protocol PRN Reason: Hypoglycemia Protocol Glucagon (Glucagen Diagnostic Kit) 0 mg IM STAT PRN; Protocol PRN Reason: Hypoglycemia Protocol Heparin Sodium (Porcine) (Heparin) 5,000 units SC Q8 [facility] PRN Reason: Protocol Last Admin: 03/21/17 09:15 Dose: 5,000 units Ceftriaxone Sodium 1 gm/ (Sodium Chloride) 100 mls @ 100 mls/hr IVPB DAILY [facility] PRN Reason: Protocol Last Admin: 03/21/17 09:14 Dose: 100 mls/hr Potassium Chloride 10 meq/ (Sodium Chloride) 55 mls @ 55 mls/hr IV Q1 [facility] Stop: 03/21/17 11:59 Insulin Human Regular (Humulin R) 0 units SC ACHS [facility] PRN Reason: Protocol Last Admin: 03/21/17 06:38 Dose: Not Given Levothyroxine Sodium (Synthroid) 25 mcg PO DAILY@0630 [facility] Last Admin: 03/21/17 06:37 Dose: 25 mcg Ondansetron HCl (Zofran Inj) 4 mg IVP Q6 PRN PRN Reason: Nausea/Vomiting Pantoprazole Sodium (Protonix Ec Tab) 40 mg PO DAILY [facility] Last Admin: 03/21/17 09:16 Dose: 40 mg Paroxetine HCl (Paxil) 30 mg PO DAILY [facility] Last Admin: 03/21/17 09:15 Dose: 30 mg Saccharomyces Boulardii (Florastor) 250 mg PO BID [facility] Last Admin: 03/21/17 09:15 Dose: 250 mg - Labs Labs: 03/21/17 05:30 03/21/17 05:30 PT 13.2 Seconds (9.8-13.1) H 03/21/17 05:30 INR 1.2 (0.9-1.2) 03/21/17 05:30 APTT 31.3 Seconds (25.6-37.1) 03/21/17 05:30 - Constitutional Appears: Well - Head Exam Head Exam: ATRAUMATIC, NORMAL INSPECTION - Eye Exam Eye Exam: Normal appearance Pupil Exam: NORMAL ACCOMODATION, PERRL - ENT Exam ENT Exam: Mucous Membranes Dry - Neck Exam Neck Exam: Full ROM, Normal Inspection - Respiratory Exam Respiratory Exam: Clear to Ausculation Bilateral, NORMAL BREATHING PATTERN. absent: Rhonchi, Wheezes - Cardiovascular Exam Cardiovascular Exam: REGULAR RHYTHM, +S1, +S2 - GI/Abdominal Exam GI & Abdominal Exam: Soft, Normal Bowel Sounds. absent: Firm, Guarding, Tenderness - Rectal Exam Rectal Exam: NORMAL INSPECTION - Exam Exam: Circumcision, NORMAL INSPECTION External exam: NORMAL EXTERNAL EXAM Speculum exam: NORMAL SPECULUM EXAM Bimanual exam: NORMAL BIMANUAL EXAM - Extremities Exam Extremities Exam: Full ROM, Normal Capillary Refill, Normal Inspection. absent : Joint Swelling, Pedal Edema - Back Exam Back Exam: NORMAL INSPECTION - Neurological Exam Neurological Exam: Alert, Awake, CN II-XII Intact, Normal Gait, Oriented x3 - Psychiatric Exam Psychiatric exam: Normal Affect, Normal Mood - Skin Skin Exam: Dry, Intact, Normal Color, Warm Assessment and Plan - Assessment and Plan (Free Text) Assessment: 81 y/o F with PMHx of NIDDM, Dementia and COPD admitted for UTI/Sepsis 1. Suspicion of Sepsis/SIRS -acute, present on admission -Possible source urinary tract -SIRS criteria met on admission with UA positive for infection -Lactate WNL -BP WNL and mental status is at patient's baseline. HR and RR slightly elevated -UA + for bacteria, WBC, LE and Yeast -WBC 13.4 with high neutrophil count -CXR: L/Effusion(pending official report) -CT abd and pelvis: Kidneys atrophy, no stones and no mention of pyelonephritis signs. Stable adnexal and pancreatric mass compared to previous studies(please see full report) -STOPPED: Ciprofloxacin and Flagyl IV -STOPPED: Vancomycin 1g IV once -S/P Fluconazole 200 mg PO once -DJ-Hpm-K-Natriuretic peptide: 346-WNL. -Pro-calcitonin 6.59-elevated -CXR on 03/20/17 showed a new round opacity right upper madelin-thorax common non- specific. Consider further evaluation with CT scan. -EKG on 03/20/17 showed sinus tachycardia, possible L atrial enlargement, L axis deviation and RBBB. -Ceftriaxone 1gr IVPB daily initiated. -Another bolus of 500mL NSS 0.9% ordered. -F/U Ucx and Bcx 2. UTI, suspected -acute -UA + for bacteria, WBC, LE and Yeast -S/P Cipro 400 mg IV -S/P Diflucan PO once, -UCx on 07/2016 was positive for Kleb Pneu sensitive to Cipro and Ceftriaxone -Multiple Ucx in the past positive for bienvenido. -F/U UCx. 3. SHRAVAN -Possible due to sepsis/UTI -On 03/20/17: GFR 39, Creat 1.3 -On 03/21/17: Creatinine 1.0-WNL. GFR 53-WNL -Has hx of SHRAVAN in the past and needed HD once -Last GFR and Creat on August 2016 were WNL 4. New lung mass on X-ray of chest/ -CXR on 03/20/17 showed a new round opacity right upper madelin-thorax common non- specific. Consider further evaluation with CT scan. -Hx of Left side effusions in the past -PTH Sx specimen from bronchial wash and pleural fluid in August/2016 both negative for malignancy -Broncoscopy on August/2016 showed mucus plug left/lung with Cx of bronchial washing + for E.Coli ESBL resistant to Cipro, Ceftriaxone and Sensitive to Gentamycin and Imipenen(please check sensitivity report). -PC-Alr-Z-Natriuretic peptide: 346-WNL. -Pro-calcitonin 6.59-elevated -CT of Chest without contrast to be performed. 5. Pressure ulcer, sacrum -Wound care consulted -Likely stage 1 6. B/L Lower extremity lymphangitis -Chronic -LE US neg for DVT B/L -Keep Legs elevated -Observation 7. NIDDM -Chronic, Controlled, Accucheck at ED 90s -Not on any home meds(pending Ph verification AM) -SSI ACHS -Hypoglycemia protocol 8. Pancreatic mass -On CT of the abd stable compared to previous CT when it was reported as cystic mass -Lipase WNL -S/P Cholecystectomy -NO signs of biliary obstruction on CT report 9. L/adnexal mass -On CT of the abd stable compared to previous CT when it was reported as a cyst 10. Hx of dysphagia to thin liquids -as per family -dysphagia modified diet with thick liquids ordered -Sterilization Specialist referral ordered -SWALLOW STUDY ordered. -F/U speech therapy recommendations. 11. Hx of Depression -C/W home meds for now 12. Hx of Hypothyroidism -C/w home meds -TSH 0.94-WNL on 03/21/17 13. Hx of COPD -Duoneb nebs PRN 15. Prophylactic measures -Heparin 5000 mg SQ q8h -Florastor PO BID <Ta Lipscomb - Last Filed: 03/22/17 06:53> Objective - Vital Signs/Intake and Output Vital Signs (last 24 hours): Temp Pulse Resp BP Pulse Ox 98.9 F 114 H 18 125/69 97 03/21/17 23:53 03/21/17 23:53 03/21/17 23:53 03/21/17 23:53 03/21/17 23:53 Intake and Output: 03/21/17 03/22/17 18:59 06:59 Intake Total 1800 Output Total 1000 Balance 800 - Medications Medications: Current Medications Acetaminophen (Tylenol 325mg Tab) 650 mg PO Q6 PRN PRN Reason: Fever >100.4 F Albuterol/Ipratropium (Duoneb 3 Mg/0.5 Mg (3 Ml) Ud) 3 ml INH RQ6 PRN PRN Reason: Shortness of Breath Alprazolam (Xanax) 0.25 mg PO HS [facility] Stop: 03/28/17 22:01 Last Admin: 03/21/17 21:38 Dose: 0.25 mg Dextrose (Dextrose 50% Inj) 0 ml IVP STAT PRN; Protocol PRN Reason: Hypoglycemia Protocol Glucagon (Glucagen Diagnostic Kit) 0 mg IM STAT PRN; Protocol PRN Reason: Hypoglycemia Protocol Heparin Sodium (Porcine) (Heparin) 5,000 units SC Q8 [facility] PRN Reason: Protocol Last Admin: 03/22/17 01:22 Dose: 5,000 units Ceftriaxone Sodium 1 gm/ (Sodium Chloride) 100 mls @ 100 mls/hr IVPB DAILY [facility] PRN Reason: Protocol Last Admin: 03/21/17 09:14 Dose: 100 mls/hr Meropenem 1 gm/ Sodium (Chloride) 100 mls @ 100 mls/hr IVPB Q12 [facility] PRN Reason: Protocol Last Admin: 03/21/17 21:36 Dose: 100 mls/hr Insulin Human Regular (Humulin R) 0 units SC ACHS [facility] PRN Reason: Protocol Last Admin: 03/22/17 06:41 Dose: Not Given Levothyroxine Sodium (Synthroid) 25 mcg PO DAILY@0630 [facility] Last Admin: 03/22/17 06:41 Dose: 25 mcg Ondansetron HCl (Zofran Inj) 4 mg IVP Q6 PRN PRN Reason: Nausea/Vomiting Pantoprazole Sodium (Protonix Ec Tab) 40 mg PO DAILY [facility] Last Admin: 01/18/18 09:16 Dose: 40 mg Paroxetine HCl (Paxil) 30 mg PO DAILY [facility] Last Admin: 03/21/17 09:15 Dose: 30 mg Saccharomyces Boulardii (Florastor) 250 mg PO BID [facility] Last Admin: 03/21/17 17:53 Dose: 250 mg - Labs Labs: 03/21/17 05:30 03/21/17 05:30 PT 13.2 Seconds (9.8-13.1) H 03/21/17 05:30 INR 1.2 (0.9-1.2) 03/21/17 05:30 APTT 31.3 Seconds (25.6-37.1) 03/21/17 05:30 Attending/Attestation - Attestation I have personally seen and examined this patient.: Yes I have fully participated in the care of the patient.: Yes I have reviewed all pertinent clinical information, including history, physical exam and plan: Yes
--- NOTE | 2017-03-21 11:17 | RAD ---
HISTORY: tachycardia COMPARISON: No prior. FINDINGS: LUNGS: Ill-defined rounded opacity upper right madelin thorax common nonspecific. Rounded infiltrate versus neoplasm. This represents interval change from prior chest radiograph of 08/13/2016. Consider evaluation with computed tomography. No other pulmonary mass or infiltrate identified. PLEURA: No significant pleural effusion identified, no pneumothorax apparent. CARDIOVASCULAR: Mild cardiomegaly. Calcified mitral annulus. OSSEOUS STRUCTURES: No significant abnormalities. VISUALIZED UPPER ABDOMEN: Normal. OTHER FINDINGS: None. IMPRESSION: New rounded opacity right upper madelin thorax common nonspecific. Consider further evaluation with computed tomography.
--- NOTE | 2017-03-21 14:23 | CARD ---
APPROVED REPORT EKG Measurement Heart [id number] <Conclusion> Sinus tachycardia Possible Left atrial enlargement Left axis deviation Right bundle branch block Abnormal ECG
[2017-03-21] MEDS ORDERED: Sodium Chloride 0.9% 500 ML IV ONE (16:08)
--- NOTE | 2017-03-21 19:50 | CP.PCM.PN ---
Subjective - Date & Time of Evaluation Date of Evaluation: 03/21/17 Time of Evaluation: 19:46 - Subjective Subjective: I D NOTE PATIENT EXAMINED ,CHART REVIEWED DISCUSSED c DR.BRAZILE GRIFFIN CULTURES,F/U LABS FULL CONSULT DICTATED HAVE ADDED MEROPENEM Objective - Vital Signs/Intake and Output Vital Signs (last 24 hours): Temp Pulse Resp BP Pulse Ox 98.9 F 107 H 16 114/64 97 03/21/17 15:59 03/21/17 15:59 03/21/17 15:59 03/21/17 15:59 03/21/17 15:59 Intake and Output: 03/21/17 03/22/17 18:59 06:59 Intake Total 1800 Output Total 1000 Balance 800 - Medications Medications: Current Medications Acetaminophen (Tylenol 325mg Tab) 650 mg PO Q6 PRN PRN Reason: Fever >100.4 F Albuterol/Ipratropium (Duoneb 3 Mg/0.5 Mg (3 Ml) Ud) 3 ml INH RQ6 PRN PRN Reason: Shortness of Breath Alprazolam (Xanax) 0.25 mg PO HS [facility] Stop: 03/28/17 22:01 Dextrose (Dextrose 50% Inj) 0 ml IVP STAT PRN; Protocol PRN Reason: Hypoglycemia Protocol Glucagon (Glucagen Diagnostic Kit) 0 mg IM STAT PRN; Protocol PRN Reason: Hypoglycemia Protocol Heparin Sodium (Porcine) (Heparin) 5,000 units SC Q8 [facility] PRN Reason: Protocol Last Admin: 03/21/17 17:54 Dose: 5,000 units Ceftriaxone Sodium 1 gm/ (Sodium Chloride) 100 mls @ 100 mls/hr IVPB DAILY [facility] PRN Reason: Protocol Last Admin: 03/21/17 09:14 Dose: 100 mls/hr Meropenem 1 gm/ Sodium (Chloride) 100 mls @ 100 mls/hr IVPB Q12 [facility] PRN Reason: Protocol Insulin Human Regular (Humulin R) 0 units SC ACHS [facility] PRN Reason: Protocol Last Admin: 03/21/17 17:54 Dose: Not Given Levothyroxine Sodium (Synthroid) 25 mcg PO DAILY@0630 [facility] Last Admin: 03/21/17 06:37 Dose: 25 mcg Ondansetron HCl (Zofran Inj) 4 mg IVP Q6 PRN PRN Reason: Nausea/Vomiting Pantoprazole Sodium (Protonix Ec Tab) 40 mg PO DAILY [facility] Last Admin: 03/21/17 09:16 Dose: 40 mg Paroxetine HCl (Paxil) 30 mg PO DAILY [facility] Last Admin: 03/21/17 09:15 Dose: 30 mg Saccharomyces Boulardii (Florastor) 250 mg PO BID [facility] Last Admin: 03/21/17 17:53 Dose: 250 mg - Labs Labs: 03/21/17 05:30 03/21/17 05:30 PT 13.2 Seconds (9.8-13.1) H 03/21/17 05:30 INR 1.2 (0.9-1.2) 03/21/17 05:30 APTT 31.3 Seconds (25.6-37.1) 03/21/17 05:30
--- NOTE | 2017-03-21 20:21 | CON ---
DATE: INFECTIOUS DISEASE CONSULTATION The patient is a patient of Dr. Holm and Dr. Lipscomb. HISTORY OF PRESENT ILLNESS: The patient has had multiple hospitalizations within the past few months and history was taken from previous records and emergency physician's notes. The patient has dementia and no family member was present when I saw her. The patient is an 80-year-old female with a past medical history of dementia, diabetes, hypercholesterolemia, pleural effusion, COPD and HTN. The patient came to the emergency department by ambulance with complaints of abdominal pain, diarrhea x6 days and more recently malaise. The patient is bedridden and has a nurse at home. Prior admissions include pleural effusion, respiratory difficulty. The patient is confused and cannot give any information as previously stated. The patient came in with a temp of 99. PAST MEDICAL HISTORY: As stated, chronic COPD, dementia, seizures, chronic kidney disease, hypothyroidism. PAST SURGICAL HISTORY: Includes a cholecystectomy. PHYSICAL EXAMINATION: GENERAL: She is confused, chronically ill. HEENT: Within normal limits. NECK: Supple. LUNGS: Decreased breath sounds at bases, left greater than right. HEART: Regular sinus rhythm. ABDOMEN: Positive bowel sounds, soft. No guarding or rigidity. EXTREMITIES: No CCE. BACK: There is noted a possible developing sacral decubitus. LABORATORY DATA: WBC 13.4, hemoglobin 11.7, polys 77.9%, platelets are 280. Sodium 137, potassium 3.3, chloride is 104, creatinine 1.0, GFR is 53, total protein 5.2, albumin 2.4, triglycerides of 276, cholesterol is 106, procalcitonin is 6.59. Lactic acid was within normal limits. Urine showed 244 microscopic wbc, wbc clumps many and urine bacteria many. Awaiting urine culture. ASSESSMENT: At present time, she is on Cipro and review of the chart does have a past history of Escherichia coli in the lung in bronchial cultures, that was extended-spectrum beta-lactamase positive(ESBL +)and sensitive only to imipenem(carbapenems),tygecycline,and Bactrim. Resistant to Cipro. At present time, she is on Cipro. Considering the fact that she has a recent past history of extended-spectrum beta-lactamase Escherichia coli, I would place her on meropenem 1 g q. 12. Awaiting followup cultures and blood work. Tj Guzmán MD LOKESH
[2017-03-21] MEDS: Meropenem 1 GM in Sodium Chloride 0.9% 100 ML IVPB SCH (21:36)
[2017-03-22] MEDS: Insulin Regular 100 units/ml SC SCH ×4 (06:41→22:14)
[2017-03-22] MEDS: Levothyroxine 25 MCG TAB PO SCH (06:41)
[2017-03-22] MEDS: Saccharomyces Boulardi 250 mg Cap PO SCH ×2 (08:26→17:08)
[2017-03-22] MEDS: Pantoprazole 40 mg EC Tab PO SCH (08:27)
--- NOTE | 2017-03-22 08:32 | CP.PCM.PN ---
Addendum entered and electronically signed by Jesus Iniguez MD 03/22/17 12 :53: Today's studies: (03/22/17) CT of Chest: probable mucoid impaction in RUL bronchi. Recommend 3-months f/u. EKG showed sinus thacycardia, RBBB, L ant bi-fascicular block. Will continue A/P as bellow. Original Note: <Jesus Iniguez - Last Filed: 03/22/17 12:17> Subjective - Date & Time of Evaluation Date of Evaluation: 03/22/17 Time of Evaluation: 07:35 - Subjective Subjective: 81 y/o F admitted for evaluation of suspected sepsis and UTI. Today, pt reports bilateral extremities discomfort and pain. Pt is alert and knows where she is. No acute events overnight. Pt afebrile and tolerating PO. -Swallow evaluation by speech therapy team, recommended pureed diet and liquids. -Physical therapy team evaluated pt and recommended to discharge with services. Objective - Vital Signs/Intake and Output Vital Signs (last 24 hours): Temp Pulse Resp BP Pulse Ox 97.1 F L 106 H 18 142/73 98 03/22/17 08:14 03/22/17 08:14 03/22/17 08:14 03/22/17 08:14 03/22/17 08:14 - Medications Medications: Current Medications Acetaminophen (Tylenol 325mg Tab) 650 mg PO Q6 PRN PRN Reason: Fever >100.4 F Albuterol/Ipratropium (Duoneb 3 Mg/0.5 Mg (3 Ml) Ud) 3 ml INH RQ6 PRN PRN Reason: Shortness of Breath Alprazolam (Xanax) 0.25 mg PO HS [facility] Stop: 03/28/17 22:01 Last Admin: 03/21/17 21:38 Dose: 0.25 mg Dextrose (Dextrose 50% Inj) 0 ml IVP STAT PRN; Protocol PRN Reason: Hypoglycemia Protocol Glucagon (Glucagen Diagnostic Kit) 0 mg IM STAT PRN; Protocol PRN Reason: Hypoglycemia Protocol Heparin Sodium (Porcine) (Heparin) 5,000 units SC Q8 [facility] PRN Reason: Protocol Last Admin: 03/22/17 01:22 Dose: 5,000 units Ceftriaxone Sodium 1 gm/ (Sodium Chloride) 100 mls @ 100 mls/hr IVPB DAILY [facility] PRN Reason: Protocol Last Admin: 03/21/17 09:14 Dose: 100 mls/hr Meropenem 1 gm/ Sodium (Chloride) 100 mls @ 100 mls/hr IVPB Q12 [facility] PRN Reason: Protocol Last Admin: 03/21/17 21:36 Dose: 100 mls/hr Insulin Human Regular (Humulin R) 0 units SC ACHS [facility] PRN Reason: Protocol Last Admin: 03/22/17 06:41 Dose: Not Given Levothyroxine Sodium (Synthroid) 25 mcg PO DAILY@0630 [facility] Last Admin: 03/22/17 06:41 Dose: 25 mcg Ondansetron HCl (Zofran Inj) 4 mg IVP Q6 PRN PRN Reason: Nausea/Vomiting Pantoprazole Sodium (Protonix Ec Tab) 40 mg PO DAILY [facility] Last Admin: 03/21/17 09:16 Dose: 40 mg Paroxetine HCl (Paxil) 30 mg PO DAILY [facility] Last Admin: 03/21/17 09:15 Dose: 30 mg Saccharomyces Boulardii (Florastor) 250 mg PO BID [facility] Last Admin: 03/21/17 17:53 Dose: 250 mg - Labs Labs: 03/21/17 05:30 03/21/17 05:30 PT 13.2 Seconds (9.8-13.1) H 03/21/17 05:30 INR 1.2 (0.9-1.2) 03/21/17 05:30 APTT 31.3 Seconds (25.6-37.1) 03/21/17 05:30 - Constitutional Appears: Well, Non-toxic, No Acute Distress - Head Exam Head Exam: ATRAUMATIC, NORMAL INSPECTION - Eye Exam Eye Exam: EOMI, Normal appearance - ENT Exam ENT Exam: Mucous Membranes Dry - Neck Exam Neck Exam: Full ROM, Normal Inspection - Respiratory Exam Respiratory Exam: Clear to Ausculation Bilateral, NORMAL BREATHING PATTERN - Cardiovascular Exam Cardiovascular Exam: REGULAR RHYTHM, +S1, +S2 - GI/Abdominal Exam GI & Abdominal Exam: Soft, Normal Bowel Sounds. absent: Guarding, Tenderness - Neurological Exam Neurological Exam: Alert, Awake, Oriented x3 Assessment and Plan - Assessment and Plan (Free Text) Assessment: 81 y/o F with PMHx of NIDDM, Dementia and COPD admitted for UTI/Sepsis 1. Suspicion of Sepsis/SIRS -acute, present on admission -Possible source urinary tract -SIRS criteria met on admission with UA positive for infection -Lactate WNL -BP WNL and mental status is at patient's baseline. HR and RR slightly elevated -UA + for bacteria, WBC, LE and Yeast at ED. -WBC 13.4 with high neutrophil count at ED. -CXR: L/Effusion(pending official report) at ED. -CT abd and pelvis: Kidneys atrophy, no stones and no mention of pyelonephritis signs. Stable adnexal and pancreatric mass compared to previous studies(please see full report) -STOPPED: Ciprofloxacin and Flagyl IV -STOPPED: Vancomycin 1g IV once -S/P Fluconazole 200 mg PO once -GP-Nhc-Y-Natriuretic peptide: 346-WNL. -Pro-calcitonin 6.59-elevated -CXR on 03/20/17 showed a new round opacity right upper madelin-thorax common non- specific. Consider further evaluation with CT scan. -EKG on 03/20/17 showed sinus tachycardia, possible L atrial enlargement, L axis deviation and RBBB. -Ceftriaxone 1gr IVPB -Blood Cx showed NO growth in 24 hours -Meropenem Q12H, as per Infectology. -EKG due to persistent tachycardia -F/U EKG, Ucx and Bcx 2. UTI, suspected -acute -UA + for bacteria, WBC, LE and Yeast -S/P Cipro 400 mg IV -S/P Diflucan PO once, -UCx on 07/2016 was positive for Kleb Pneumo sensitive to Cipro and Ceftriaxone -Multiple Ucx in the past positive for bienvenido. -F/U UCx. 3. SHRAVAN -Possible due to sepsis/UTI -On 03/20/17: GFR 39, Creat 1.3 -On 03/21/17: Creatinine 1.0-WNL. GFR 53-WNL -Has hx of SHRAVAN in the past and needed HD once -Last GFR and Creat on August 2016 were WNL 4. New lung mass on X-ray of chest -CXR on 03/20/17 showed a new round opacity right upper madelin-thorax common non- specific. Consider further evaluation with CT scan. -Hx of Left side effusions in the past -PTH Sx specimen from bronchial wash and pleural fluid in August/2016 both negative for malignancy -Broncoscopy on August/2016 showed mucus plug left/lung with Cx of bronchial washing + for E.Coli ESBL resistant to Cipro, Ceftriaxone and Sensitive to Gentamycin and Imipenen(please check sensitivity report). -BE-Uew-U-Natriuretic peptide: 346-WNL. -Pro-calcitonin 6.59-elevated -CT of Chest without contrast to be performed. -F/U CT chest results. 5. Pressure ulcer, sacrum -Wound care consulted -Likely stage 1 6. B/L Lower extremity lymphangitis -Chronic -LE US neg for DVT B/L -Keep Legs elevated -Observation 7. NIDDM -Chronic, Controlled, Accucheck at ED 90s -Not on any home meds(pending Ph verification AM) -SSI ACHS -Hypoglycemia protocol 8. Pancreatic mass -On CT of the abd stable compared to previous CT when it was reported as cystic mass -Lipase WNL -S/P Cholecystectomy -NO signs of biliary obstruction on CT report 9. L/adnexal mass -On CT of the abd stable compared to previous CT when it was reported as a cyst 10. Hx of dysphagia to thin liquids -as per family -dysphagia modified diet with thick liquids ordered -Supervisor [employer] referral ordered -SWALLOW STUDY ordered. -F/U speech therapy recommendations. 11. Hx of Depression -C/W home meds for now 12. Hx of Hypothyroidism -C/w home meds -TSH 0.94-WNL on 03/21/17 13. Hx of COPD -Duoneb nebs PRN 15. Prophylactic measures -Heparin 5000 mg SQ q8h -Florastor PO BID <Ta Lipscomb - Last Filed: 03/25/17 06:46> Objective - Vital Signs/Intake and Output Vital Signs (last 24 hours): Temp Pulse Resp BP Pulse Ox 99.1 F 99 H 19 102/65 99 03/25/17 00:00 03/25/17 00:00 03/25/17 00:00 03/25/17 00:00 03/25/17 00:00 Intake and Output: 03/24/17 03/25/17 18:59 06:59 Intake Total 550 Balance 550 - Medications Medications: Current Medications Acetaminophen (Tylenol 325mg Tab) 650 mg PO Q6 PRN PRN Reason: Fever >100.4 F Last Admin: 03/24/17 17:03 Dose: 650 mg Albuterol/Ipratropium (Duoneb 3 Mg/0.5 Mg (3 Ml) Ud) 3 ml INH RQ6 PRN PRN Reason: Shortness of Breath Alprazolam (Xanax) 0.25 mg PO HS [facility] Stop: 03/28/17 22:01 Last Admin: 03/24/17 21:39 Dose: 0.25 mg Dextrose (Dextrose 50% Inj) 0 ml IVP STAT PRN; Protocol PRN Reason: Hypoglycemia Protocol Dimethicone (Proshield Plus Skin Protectant) 1 applic TOP Q8 [facility] Last Admin: 03/25/17 01:00 Dose: 1 applic Glucagon (Glucagen Diagnostic Kit) 0 mg IM STAT PRN; Protocol PRN Reason: Hypoglycemia Protocol Heparin Sodium (Porcine) (Heparin) 5,000 units SC Q8 [facility] PRN Reason: Protocol Last Admin: 03/25/17 00:25 Dose: 5,000 units Meropenem 1 gm/ Sodium (Chloride) 100 mls @ 100 mls/hr IVPB Q12 [facility] PRN Reason: Protocol Last Admin: 03/24/17 21:42 Dose: 100 mls/hr Insulin Human Regular (Humulin R) 0 units SC ACHS [facility] PRN Reason: Protocol Last Admin: 03/25/17 06:33 Dose: Not Given Levothyroxine Sodium (Synthroid) 25 mcg PO DAILY@0630 [facility] Last Admin: 03/25/17 06:14 Dose: 25 mcg Ondansetron HCl (Zofran Inj) 4 mg IVP Q6 PRN PRN Reason: Nausea/Vomiting Pantoprazole Sodium (Protonix Ec Tab) 40 mg PO DAILY [facility] Last Admin: 03/24/17 09:51 Dose: 40 mg Paroxetine HCl (Paxil) 30 mg PO DAILY [facility] Last Admin: 03/24/17 09:51 Dose: 30 mg Saccharomyces Boulardii (Florastor) 250 mg PO BID [facility] Last Admin: 03/24/17 17:02 Dose: 250 mg - Labs Labs: 03/24/17 06:00 03/24/17 06:00 PT 13.2 Seconds (9.8-13.1) H 03/21/17 05:30 INR 1.2 (0.9-1.2) 03/21/17 05:30 APTT 31.3 Seconds (25.6-37.1) 03/21/17 05:30 Attending/Attestation - Attestation I have personally seen and examined this patient.: Yes I have fully participated in the care of the patient.: Yes I have reviewed all pertinent clinical information, including history, physical exam and plan: Yes
[2017-03-22 10:54] LABS: BLOOD UREA NITROGEN 11 mg/dl (7-17); CALCIUM 8.1 mg/dL (8.4-10.2); GFR AFRICAN-AMERICAN > 60; GFR NON-AFRICAN AMERICAN 53
--- NOTE | 2017-03-22 11:18 | CARD ---
APPROVED REPORT EKG Measurement Heart [id number] [place] [id number] <Conclusion> Sinus tachycardia Right bundle branch block Left anterior fascicular block Bifascicular block Abnormal ECG
[2017-03-22] MEDS: Meropenem 1 GM in Sodium Chloride 0.9% 100 ML IVPB SCH ×2 (12:21→22:00)
--- NOTE | 2017-03-22 12:21 | PQF GENQUE ---
Dr. Holm, 1. 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 Please specify POA status of each pressure ulcer: Not present on admission Present on admission Other (please specify) Clinically unable to determine Unknown 3. Please specify stage of each pressure ulcer (National Pressure Ulcer Advisory Panel definitions): Stage I: Intact skin with non-blanchable redness of a localized area Stage II: Partial thickness skin loss involving dermis with a shallow open ulcer or an open serum-filled blister Stage III: Full thickness skin loss involving damage or necrosis of subcutaneous tissue Stage IV: Full thickness skin loss with exposed bone, tendon or muscle Unstageable: Full thickness tissue loss in which the base of the of ulcer is covered by slough and/or eschar in the wound bed Deep tissue Injury (DTI):Purple or maroon localized area of intact skin due to damage of underlying soft tissue from pressure and/or shear Other (please specify) Clinically unable to determine Unknown 4. If ulcer is not due to pressure, please specify other cause of ulcer (e.g., diabetes, PVD, varicose veins) Nursing Admission Assessment: Physical: Sacrum: Pressure Area 03/21: Wound RN narrative: There is an irregular dry eschar on the mid, medial calf. Both heels show erythema that is not blanchable : pt. is rubbing her medial heels together. 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 There are multiple, small, irregular denuded areas noted on her upper buttocks. 03/21 Pressure Ulcer Assessment: Wound RN: 1. B/L Sacrum: MASD (Mositure Associated Damage) 2. B/L Heels : Stage 1 03/22 Draft progress note: Pressure ulcer, sacrum -Wound care consulted -Likely stage 1 This form is a permanent part of the medical record Clarification of your documentation is requested to better reflect the severity of illness and intensity of treatment of your patient. Indicators present [] Specify: [] [] Specify: [] [] Specify: [] [] Specify: [] Location in the medical record that reflects the above clinical findings: [] Treatment Provided: [] PHYSICIAN'S RESPONSE Based on your medical judgment of the clinical indicators outlined above please clarify the following: [] Practitioner response [] If unable to determine, please check the box, sign and date. Present On Admission (POA) Indicator: [] Present at the time of admission [] Not present at the time of admission [] Clinically Undetermined In responding to this query, please exercise your independent professional judgment. The fact that a question is asked does not imply that any particular answer is desired or expected. Thank you for your clarification on this documentation. If you have any questions please call. * Thank you, Ginny Wies RN ext. #[phone] MTDD
--- NOTE | 2017-03-22 12:35 | CT ---
PROCEDURE: CT Chest without contrast HISTORY: New round opacity right upper madelin-thorax on CXR. COMPARISON: None. TECHNIQUE: Contiguous axial images were obtained through the chest without intravenous contrast enhancement. Sagittal and coronal reconstructions were performed. Radiation dose (DLP): 627.27 mGy-cm. This CT exam was performed using one or more of the following dose reduction techniques: Automated exposure control, adjustment of the mA and/or kV according to patient size, and/or use of iterative reconstruction technique. FINDINGS: Examination limited due to respiratory motion artifact. LUNGS: No acute infiltrate. Two somewhat serpiginous nodular opacities in the right upper lobe. It is likely that 1 of these serpiginous opacities was present on prior examination though evaluation was limited by respiratory motion artifact. This has a somewhat serpiginous and branching appearance suggestive of mucoid impaction. It measures 1.9 cm in greatest dimension. A 2nd opacity is now seen that was not evident previously. This measures roughly 0.9 x 1.7 cm. Again, this may represent mucoid impaction. However, short interval follow-up is advised to exclude neoplasm. . MEDIASTINUM: Unremarkable thoracic aorta. No aneurysm. Cardiomegaly. Mitral valve replacement versus mitral annular calcification. Dilated main pulmonary artery to 3.5 cm diameter. This may correlate with pulmonary arterial hypertension. No lymphadenopathy. PLEURA: Very small bilateral pleural effusion. No pneumothorax. BONES: Very mild anterior wedge compression deformity of the L1 vertebra new since prior CT examination. No other fracture identified. UPPER ABDOMEN: Small hiatal hernia OTHER FINDINGS: None. IMPRESSION: Probable mucoid impaction in right upper lobe bronchi though cannot ext highly exclude neoplasm. Recommend three-month follow-up chest CT examination. Very small bilateral pleural effusion. Cardiomegaly. Mild compression deformity of L1 vertebra, new since prior examination.
[2017-03-23] MEDS: Insulin Regular 100 units/ml SC SCH ×4 (06:51→22:15)
[2017-03-23] MEDS: Levothyroxine 25 MCG TAB PO SCH (06:52)
--- NOTE | 2017-03-23 08:42 | CP.PCM.PN ---
Subjective - Date & Time of Evaluation Date of Evaluation: 03/23/17 Time of Evaluation: 07:45 - Subjective Subjective: 81F admitted for suspected recurrent UTI. Patient has dementia but denying any current SOB, chest pain, and denies pain at any other site. As per charts and nursing no acute events overnight and patient tolerating puree foods without difficulty. Objective - Vital Signs/Intake and Output Vital Signs (last 24 hours): Temp Pulse Resp BP Pulse Ox 37.1 C 96 H 20 145/71 96 03/23/17 07:40 03/23/17 07:40 03/23/17 07:40 03/23/17 07:40 03/23/17 07:40 - Medications Medications: Current Medications Acetaminophen (Tylenol 325mg Tab) 650 mg PO Q6 PRN PRN Reason: Fever >100.4 F Albuterol/Ipratropium (Duoneb 3 Mg/0.5 Mg (3 Ml) Ud) 3 ml INH RQ6 PRN PRN Reason: Shortness of Breath Alprazolam (Xanax) 0.25 mg PO HS [facility] Stop: 03/28/17 22:01 Last Admin: 03/22/17 21:08 Dose: 0.25 mg Dextrose (Dextrose 50% Inj) 0 ml IVP STAT PRN; Protocol PRN Reason: Hypoglycemia Protocol Glucagon (Glucagen Diagnostic Kit) 0 mg IM STAT PRN; Protocol PRN Reason: Hypoglycemia Protocol Heparin Sodium (Porcine) (Heparin) 5,000 units SC Q8 [facility] PRN Reason: Protocol Last Admin: 03/23/17 00:58 Dose: 5,000 units Ceftriaxone Sodium 1 gm/ (Sodium Chloride) 100 mls @ 100 mls/hr IVPB DAILY [facility] PRN Reason: Protocol Last Admin: 03/22/17 08:28 Dose: 100 mls/hr Meropenem 1 gm/ Sodium (Chloride) 100 mls @ 100 mls/hr IVPB Q12 [facility] PRN Reason: Protocol Last Admin: 03/22/17 22:00 Dose: 100 mls/hr Insulin Human Regular (Humulin R) 0 units SC ACHS [facility] PRN Reason: Protocol Last Admin: 03/23/17 06:51 Dose: Not Given Levothyroxine Sodium (Synthroid) 25 mcg PO DAILY@0630 [facility] Last Admin: 03/23/17 06:52 Dose: 25 mcg Ondansetron HCl (Zofran Inj) 4 mg IVP Q6 PRN PRN Reason: Nausea/Vomiting Pantoprazole Sodium (Protonix Ec Tab) 40 mg PO DAILY [facility] Last Admin: 03/22/17 08:27 Dose: 40 mg Paroxetine HCl (Paxil) 30 mg PO DAILY [facility] Last Admin: 03/22/17 08:27 Dose: 30 mg Saccharomyces Boulardii (Florastor) 250 mg PO BID [facility] Last Admin: 03/22/17 17:08 Dose: 250 mg - Labs Labs: 03/21/17 05:30 03/22/17 10:35 PT 13.2 Seconds (9.8-13.1) H 03/21/17 05:30 INR 1.2 (0.9-1.2) 03/21/17 05:30 APTT 31.3 Seconds (25.6-37.1) 03/21/17 05:30 - Constitutional Appears: Non-toxic, No Acute Distress - Head Exam Head Exam: ATRAUMATIC, NORMAL INSPECTION - Eye Exam Eye Exam: EOMI, PERRL - ENT Exam ENT Exam: Mucous Membranes Moist, Normal Exam - Respiratory Exam Respiratory Exam: Clear to Ausculation Bilateral, NORMAL BREATHING PATTERN. absent: Rales, Wheezes - Cardiovascular Exam Cardiovascular Exam: Tachycardia, REGULAR RHYTHM, +S1, +S2 - GI/Abdominal Exam GI & Abdominal Exam: Soft, Normal Bowel Sounds. absent: Tenderness - Extremities Exam Extremities Exam: Normal Capillary Refill. absent: Tenderness - Neurological Exam Neurological Exam: Awake. absent: Oriented x3 (Patient has baseline dementia) - Skin Skin Exam: Normal Color, Warm Assessment and Plan - Assessment and Plan (Free Text) Assessment: 81F admitted for urosepsis, treated empirically with Rocephin and Meropenem added by ID. Clinically continues to improve. UCx is positive for ESBL Klebsiella. - ID Consult (Dr Guzmán) appreciated: ?possible PO antibiotic recommendations. Small, new RIGHT lung lesion noted on CXR and CT chest describes likely mucoid plug in RUL, recommend 3 month follow up. - ESBL precautions as indicated by [facility] - Stop Rocephin - c/w Meropenem - d/c Justin catheter - Decubitus: c/w wound care, frequent turning, pressure off-loading - Diet: Puree with thin liquids - c/w all other medications as ordered - d/w Dr Mathews
[2017-03-23] MEDS: Saccharomyces Boulardi 250 mg Cap PO SCH ×2 (09:02→16:23)
[2017-03-23] MEDS: Meropenem 1 GM in Sodium Chloride 0.9% 100 ML IVPB SCH ×2 (09:02→21:08)
[2017-03-23] MEDS: Pantoprazole 40 mg EC Tab PO SCH (09:03)
[2017-03-23 10:31] LABS: BASO % 0.4 % (0.0-2.0); EOS # 0.3 K/uL (0.0-0.7); EOS % 3.7 % (0.0-4.0); HEMOGLOBIN 10.2 g/dL (12.0-16.0); LYMPH # 1.7 K/uL (1.0-4.3); LYMPH % 18.7 % (20.0-40.0); MEAN CELL VOLUME 83.9 fl (81.0-99.0); MEAN CORPUSCULAR HEMOGLOBIN 25.7 pg (27.0-31.0); MEAN CORPUSCULAR HGB CONC 30.6 g/dL (33.0-37.0); MEAN PLATELET VOLUME 9.1 fl (7.2-11.7); MONO # 0.8 K/uL (0.0-0.8); MONO % 8.2 % (0.0-10.0); NEUT # 6.4 K/uL (1.8-7.0); NRBC % 0.1 % (0.0-0.0); RBC 3.98 Mil/uL (3.80-5.20); RED CELL DISTRIBUTION WIDTH 16.8 % (11.5-14.5); WHITE BLOOD COUNT 9.3 K/uL (4.8-10.8)
[2017-03-23 11:24] LABS: ALB/GLOB RATIO 0.8 (1.0-2.1); ALBUMIN 2.4 g/dL (3.5-5.0); ALT/SGPT 35 U/L (9-52); AST/SGOT 20 U/L (14-36); BLOOD UREA NITROGEN 10 mg/dl (7-17); CALCIUM 8.4 mg/dL (8.4-10.2); GFR AFRICAN-AMERICAN > 60; GFR NON-AFRICAN AMERICAN 53
[2017-03-23] MEDS ORDERED: Potassium Chloride 20 mEq/15 ml LIQ UD PO ONE (12:14)
--- NOTE | 2017-03-23 16:15 | CP.PCM.PN ---
Subjective - Date & Time of Evaluation Date of Evaluation: 03/23/17 Time of Evaluation: 16:14 - Subjective Subjective: I D NOTE ESBL E,COLI IN URINE WOULD CONTINUE MEROPENEM PER DISCUSSION c FP RESIDENT Objective - Vital Signs/Intake and Output Vital Signs (last 24 hours): Temp Pulse Resp BP Pulse Ox 98.8 F 96 H 20 145/71 96 03/23/17 07:40 03/23/17 07:40 03/23/17 07:40 03/23/17 07:40 03/23/17 07:40 - Medications Medications: Current Medications Acetaminophen (Tylenol 325mg Tab) 650 mg PO Q6 PRN PRN Reason: Fever >100.4 F Albuterol/Ipratropium (Duoneb 3 Mg/0.5 Mg (3 Ml) Ud) 3 ml INH RQ6 PRN PRN Reason: Shortness of Breath Alprazolam (Xanax) 0.25 mg PO HS [facility] Stop: 03/28/17 22:01 Last Admin: 03/22/17 21:08 Dose: 0.25 mg Dextrose (Dextrose 50% Inj) 0 ml IVP STAT PRN; Protocol PRN Reason: Hypoglycemia Protocol Glucagon (Glucagen Diagnostic Kit) 0 mg IM STAT PRN; Protocol PRN Reason: Hypoglycemia Protocol Heparin Sodium (Porcine) (Heparin) 5,000 units SC Q8 [facility] PRN Reason: Protocol Last Admin: 03/23/17 09:02 Dose: 5,000 units Meropenem 1 gm/ Sodium (Chloride) 100 mls @ 100 mls/hr IVPB Q12 ROCA[facility] PRN Reason: Protocol Last Admin: 03/23/17 09:02 Dose: 100 mls/hr Insulin Human Regular (Humulin R) 0 units SC ACHS [facility] PRN Reason: Protocol Last Admin: 03/23/17 12:03 Dose: Not Given Levothyroxine Sodium (Synthroid) 25 mcg PO DAILY@0630 [facility] Last Admin: 03/23/17 06:52 Dose: 25 mcg Ondansetron HCl (Zofran Inj) 4 mg IVP Q6 PRN PRN Reason: Nausea/Vomiting Pantoprazole Sodium (Protonix Ec Tab) 40 mg PO DAILY [facility] Last Admin: 03/23/17 09:03 Dose: 40 mg Paroxetine HCl (Paxil) 30 mg PO DAILY [facility] Last Admin: 03/23/17 09:03 Dose: 30 mg Saccharomyces Boulardii (Florastor) 250 mg PO BID [facility] Last Admin: 03/23/17 09:02 Dose: 250 mg - Labs Labs: 03/23/17 09:45 03/23/17 09:45 PT 13.2 Seconds (9.8-13.1) H 03/21/17 05:30 INR 1.2 (0.9-1.2) 03/21/17 05:30 APTT 31.3 Seconds (25.6-37.1) 03/21/17 05:30
[2017-03-24] MEDS: Levothyroxine 25 MCG TAB PO SCH (06:26)
[2017-03-24 07:40] LABS: HEMOGLOBIN 10.4 g/dL (12.0-16.0); MEAN CELL VOLUME 84.2 fl (81.0-99.0); MEAN CORPUSCULAR HEMOGLOBIN 25.9 pg (27.0-31.0); MEAN CORPUSCULAR HGB CONC 30.7 g/dL (33.0-37.0); RBC 4.01 Mil/uL (3.80-5.20); RED CELL DISTRIBUTION WIDTH 16.5 % (11.5-14.5); WHITE BLOOD COUNT 7.5 K/uL (4.8-10.8)
[2017-03-24 08:31] LABS: BLOOD UREA NITROGEN 10 mg/dl (7-17); GFR AFRICAN-AMERICAN > 60; GFR NON-AFRICAN AMERICAN 60
--- NOTE | 2017-03-24 08:54 | CP.PCM.PN ---
Subjective - Date & Time of Evaluation Date of Evaluation: 03/24/17 Time of Evaluation: 08:30 - Subjective Subjective: 81 y/o F admitted for evaluation and management of suspected Sepsis. Pt examined and evaluated by bedside. Pt resting comfortably on bed. No acute events overnight. Pt afebrile and tolerating PO pureed diet. Objective - Vital Signs/Intake and Output Vital Signs (last 24 hours): Temp Pulse Resp BP Pulse Ox 98.5 F 96 H 20 111/68 99 03/24/17 08:21 03/24/17 08:21 03/24/17 08:21 03/24/17 08:21 03/24/17 08:21 - Medications Medications: Current Medications Acetaminophen (Tylenol 325mg Tab) 650 mg PO Q6 PRN PRN Reason: Fever >100.4 F Albuterol/Ipratropium (Duoneb 3 Mg/0.5 Mg (3 Ml) Ud) 3 ml INH RQ6 PRN PRN Reason: Shortness of Breath Alprazolam (Xanax) 0.25 mg PO HS [facility] Stop: 03/28/17 22:01 Last Admin: 03/23/17 21:10 Dose: 0.25 mg Dextrose (Dextrose 50% Inj) 0 ml IVP STAT PRN; Protocol PRN Reason: Hypoglycemia Protocol Glucagon (Glucagen Diagnostic Kit) 0 mg IM STAT PRN; Protocol PRN Reason: Hypoglycemia Protocol Heparin Sodium (Porcine) (Heparin) 5,000 units SC Q8 [facility]AEL PRN Reason: Protocol Last Admin: 03/24/17 00:14 Dose: 5,000 units Meropenem 1 gm/ Sodium (Chloride) 100 mls @ 100 mls/hr IVPB Q12 [facility] PRN Reason: Protocol Last Admin: 03/23/17 21:08 Dose: 100 mls/hr Insulin Human Regular (Humulin R) 0 units SC ACHS [facility] PRN Reason: Protocol Last Admin: 03/23/17 22:15 Dose: Not Given Levothyroxine Sodium (Synthroid) 25 mcg PO DAILY@0630 [facility] Last Admin: 03/24/17 06:26 Dose: 25 mcg Ondansetron HCl (Zofran Inj) 4 mg IVP Q6 PRN PRN Reason: Nausea/Vomiting Pantoprazole Sodium (Protonix Ec Tab) 40 mg PO DAILY [facility] Last Admin: 03/23/17 09:03 Dose: 40 mg Paroxetine HCl (Paxil) 30 mg PO DAILY [facility] Last Admin: 03/23/17 09:03 Dose: 30 mg Saccharomyces Boulardii (Florastor) 250 mg PO BID [facility] Last Admin: 03/23/17 16:23 Dose: 250 mg - Labs Labs: 03/24/17 06:00 03/24/17 06:00 PT 13.2 Seconds (9.8-13.1) H 03/21/17 05:30 INR 1.2 (0.9-1.2) 03/21/17 05:30 APTT 31.3 Seconds (25.6-37.1) 03/21/17 05:30 - Constitutional Appears: Well, No Acute Distress - Head Exam Head Exam: NORMAL INSPECTION - Eye Exam Eye Exam: Normal appearance - ENT Exam ENT Exam: Mucous Membranes Dry - Neck Exam Neck Exam: Full ROM - Respiratory Exam Respiratory Exam: Clear to Ausculation Bilateral, NORMAL BREATHING PATTERN - Cardiovascular Exam Cardiovascular Exam: REGULAR RHYTHM, +S1, +S2 - GI/Abdominal Exam GI & Abdominal Exam: Soft, Normal Bowel Sounds. absent: Tenderness Assessment and Plan - Assessment and Plan (Free Text) Plan: 81 y/o F admitted for urosepsis, treated empirically with Rocephin and Meropenem added by ID. Clinically continues to improve. UCx is positive for ESBL Klebsiella. 1. UTI, acute -UCx on 07/2016 was positive for Kleb Pneumo sensitive to Cipro and Ceftriaxone -Meropenem Q12H, as per Infectology. -UCx on 03/20/17: positive for Klebsiella pneumonia -STOPPED: Ciprofloxacin and Flagyl IV on ER -STOPPED: Vancomycin 1g IV once on ER -S/P Fluconazole 200 mg PO once on admission -STOPPED: Ceftriaxone 1gr IVPB on admission -Blood Cx showed NO growth after 3 days. -Meropenem Q12H, as per Infectology. -Will continue Meropenem -F/U Bcx -Follow ID recommendations. 2. New lung mass on X-ray of chest -CXR on 03/20/17 showed a new round opacity right upper madelin-thorax common non- specific. Consider further evaluation with CT scan. -CT of Chest on 03/22/17: probable mucoid impaction in RUL bronchi. Recommend 3- months f/u. -F/U as outpatient. 3. Pressure ulcer, sacrum -c/w wound care, frequent turning, pressure off-loading -Likely stage 2 4. NIDDM -Chronic, Controlled, -c/w Accucheck -Hypoglycemia protocol 5. Hx of dysphagia to thin liquids -On PO pureed diet with thin liquids. 6. Hx of Depression -C/W home meds for now 7. Hx of Hypothyroidism -C/w home meds -TSH 0.94-WNL on 03/21/17 8. Hx of COPD -Duoneb nebs PRN 9. Prophylactic measures -Heparin 5000 mg SQ q8h -Florastor PO BID
[2017-03-24] MEDS: Saccharomyces Boulardi 250 mg Cap PO SCH ×2 (09:44→17:02)
[2017-03-24] MEDS: Meropenem 1 GM in Sodium Chloride 0.9% 100 ML IVPB SCH ×2 (09:51→21:42)
[2017-03-24] MEDS: Pantoprazole 40 mg EC Tab PO SCH (09:51)
[2017-03-24] MEDS: Insulin Regular 100 units/ml SC SCH ×4 (10:46→21:40)
--- NOTE | 2017-03-24 17:18 | CP.PCM.PN ---
Subjective - Date & Time of Evaluation Date of Evaluation: 03/24/17 Time of Evaluation: 17:17 - Subjective Subjective: I D NOTE HAS ESBL+ KLEBSIELLA ,GOOD SENSIVITIES WOULD CONTINUE MEROPENEM IN ADJUSTED RENAL DOSE,SO FAR RENAL STATUS IS STABLE Objective - Vital Signs/Intake and Output Vital Signs (last 24 hours): Temp Pulse Resp BP Pulse Ox 100.3 F H 99 H 20 104/76 96 03/24/17 16:22 03/24/17 16:22 03/24/17 16:22 03/24/17 16:22 03/24/17 16:22 - Medications Medications: Current Medications Acetaminophen (Tylenol 325mg Tab) 650 mg PO Q6 PRN PRN Reason: Fever >100.4 F Last Admin: 03/24/17 17:03 Dose: 650 mg Albuterol/Ipratropium (Duoneb 3 Mg/0.5 Mg (3 Ml) Ud) 3 ml INH RQ6 PRN PRN Reason: Shortness of Breath Alprazolam (Xanax) 0.25 mg PO HS [facility] Stop: 03/28/17 22:01 Last Admin: 03/23/17 21:10 Dose: 0.25 mg Dextrose (Dextrose 50% Inj) 0 ml IVP STAT PRN; Protocol PRN Reason: Hypoglycemia Protocol Glucagon (Glucagen Diagnostic Kit) 0 mg IM STAT PRN; Protocol PRN Reason: Hypoglycemia Protocol Heparin Sodium (Porcine) (Heparin) 5,000 units SC Q8 [facility] PRN Reason: Protocol Last Admin: 03/24/17 17:02 Dose: 5,000 units Meropenem 1 gm/ Sodium (Chloride) 100 mls @ 100 mls/hr IVPB Q12 [facility] PRN Reason: Protocol Last Admin: 03/24/17 09:51 Dose: 100 mls/hr Insulin Human Regular (Humulin R) 0 units SC ACHS [facility] PRN Reason: Protocol Last Admin: 03/24/17 17:04 Dose: Not Given Levothyroxine Sodium (Synthroid) 25 mcg PO DAILY@0630 [facility] Last Admin: 03/24/17 06:26 Dose: 25 mcg Ondansetron HCl (Zofran Inj) 4 mg IVP Q6 PRN PRN Reason: Nausea/Vomiting Pantoprazole Sodium (Protonix Ec Tab) 40 mg PO DAILY [facility] Last Admin: 03/24/17 09:51 Dose: 40 mg Paroxetine HCl (Paxil) 30 mg PO DAILY [facility] Last Admin: 03/24/17 09:51 Dose: 30 mg Saccharomyces Boulardii (Florastor) 250 mg PO BID [facility] Last Admin: 03/24/17 17:02 Dose: 250 mg - Labs Labs: 03/24/17 06:00 03/24/17 06:00 PT 13.2 Seconds (9.8-13.1) H 03/21/17 05:30 INR 1.2 (0.9-1.2) 03/21/17 05:30 APTT 31.3 Seconds (25.6-37.1) 03/21/17 05:30
[2017-03-25] MEDS: Proshield Plus GEL TOP SCH ×2 (01:00→09:53)
[2017-03-25] MEDS: Levothyroxine 25 MCG TAB PO SCH (06:14)
[2017-03-25] MEDS: Insulin Regular 100 units/ml SC SCH ×3 (06:30→11:30)
[2017-03-25 08:47] VITALS: RESP 20
[2017-03-25] MEDS: Saccharomyces Boulardi 250 mg Cap PO SCH (09:50)
[2017-03-25] MEDS: Meropenem 1 GM in Sodium Chloride 0.9% 100 ML IVPB SCH (09:51)
[2017-03-25] MEDS: Pantoprazole 40 mg EC Tab PO SCH (09:52)
--- NOTE | 2017-03-25 10:23 | CP.PCM.DIS ---
<Jesus Iniguez - Last Filed: 03/25/17 11:36> Provider - Provider Date of Admission: 03/20/17 22:33 Attending physician: Eddie Holm MD Primary care physician: Eddie Pathak. Consults: Infectology: Tj Vuong. Time Spent in preparation of Discharge (in minutes): 30 Hospital Course - Lab Results Lab Results: Micro Results 03/20/17 17:35 Blood Blood Culture - Preliminary NO GROWTH AFTER 4 DAYS 03/20/17 22:10 Urine,Catheterized Urine Culture - Final Klebsiella Pneumoniae Ssp Pneu Most Recent Lab Values WBC 7.5 K/uL (4.8-10.8) 03/24/17 06:00 RBC 4.01 Mil/uL (3.80-5.20) 03/24/17 06:00 Hgb 10.4 g/dL (12.0-16.0) L 03/24/17 06:00 Hct 33.7 % (34.0-47.0) L 03/24/17 06:00 MCV 84.2 fl (81.0-99.0) 03/24/17 06:00 MCH 25.9 pg (27.0-31.0) L 03/24/17 06:00 MCHC 30.7 g/dL (33.0-37.0) L 03/24/17 06:00 RDW 16.5 % (11.5-14.5) H 03/24/17 06:00 Plt Count 293 K/uL (130-400) 03/24/17 06:00 MPV 9.1 fl (7.2-11.7) 03/23/17 09:45 Neut % (Auto) 69.0 % (50.0-75.0) 03/23/17 09:45 Lymph % (Auto) 18.7 % (20.0-40.0) L 03/23/17 09:45 [place] % (Auto) 8.2 % (0.0-10.0) 03/23/17 09:45 Eos % (Auto) 3.7 % (0.0-4.0) 03/23/17 09:45 Baso % (Auto) 0.4 % (0.0-2.0) 03/23/17 09:45 Neut # 6.4 K/uL (1.8-7.0) 03/23/17 09:45 Lymph # 1.7 K/uL (1.0-4.3) 03/23/17 09:45 [place] # 0.8 K/uL (0.0-0.8) 03/23/17 09:45 Eos # 0.3 K/uL (0.0-0.7) 03/23/17 09:45 Baso # 0.0 K/uL (0.0-0.2) 03/23/17 09:45 PT 13.2 Seconds (9.8-13.1) H 03/21/17 05:30 INR 1.2 (0.9-1.2) 03/21/17 05:30 APTT 31.3 Seconds (25.6-37.1) 03/21/17 05:30 pO2 24 mm/Hg (30-55) L 03/20/17 19:36 VBG pH 7.31 (7.32-7.43) L 03/20/17 19:36 VBG pCO2 63 mmHg (40-60) H 03/20/17 19:36 VBG HCO3 26.1 mmol/L 03/20/17 19:36 VBG Total CO2 33.6 mmol/L (22-28) H 03/20/17 19:36 VBG O2 Sat (Calc) 45.2 % (40-65) 03/20/17 19:36 VBG Base Excess 3.6 mmol/L (0.0-2.0) H 03/20/17 19:36 VBG Potassium 3.4 mmol/L (3.6-5.2) L 03/20/17 19:36 Sodium 134.0 mmol/L (132-148) 03/20/17 19:36 Chloride 97.0 mmol/L (98-107) L 03/20/17 19:36 Glucose 109 mg/dL (65-105) H 03/20/17 19:36 Lactate 1.5 mmol/L (0.7-2.1) 03/20/17 19:36 FiO2 21.0 % 03/20/17 19:36 Sodium 139 mmol/l (132-148) 03/24/17 06:00 Potassium 3.8 MMOL/L (3.6-5.0) 03/24/17 06:00 Chloride 100 mmol/L (98-107) 03/24/17 06:00 Carbon Dioxide 29 mmol/L (22-30) 03/24/17 06:00 Anion Gap 14 (10-20) 03/24/17 06:00 BUN 10 mg/dl (7-17) 03/24/17 06:00 Creatinine 0.9 mg/dl (0.7-1.2) 03/24/17 06:00 Est GFR ( Amer) > 60 03/24/17 06:00 Est GFR (Non-Af Amer) 60 03/24/17 06:00 POC Glucose (mg/dL) 100 mg/dL (65-110) 03/25/17 05:16 Random Glucose 96 mg/dL (65-105) 03/24/17 06:00 Hemoglobin A1c 6.5 % (4.2-6.5) 03/21/17 05:30 Calcium 8.0 mg/dL (8.4-10.2) L 03/24/17 06:00 Phosphorus 3.8 mg/dl (2.5-4.5) 03/21/17 05:30 Magnesium 1.5 MG/DL (1.6-2.3) L 03/21/17 05:30 Total Bilirubin 0.5 mg/dl (0.2-1.3) 03/23/17 09:45 AST 20 U/L (14-36) 03/23/17 09:45 ALT 35 U/L (9-52) 03/23/17 09:45 Alkaline Phosphatase 98 U/L (38-126) 03/23/17 09:45 Troponin I 0.0350 ng/mL (0.00-0.120) 03/20/17 17:35 NT-Pro-B Natriuret Pep 346 pg/ml (0-900) 03/21/17 05:30 Total Protein 5.6 G/DL (6.3-8.2) L 03/23/17 09:45 Albumin 2.4 g/dL (3.5-5.0) L 03/23/17 09:45 Globulin 3.2 gm/dL (2.2-3.9) 03/23/17 09:45 Albumin/Globulin Ratio 0.8 (1.0-2.1) L 03/23/17 09:45 Triglycerides 276 mg/DL (0-149) H D 03/21/17 05:30 Cholesterol 106 mg/dL (0-199) 03/21/17 05:30 LDL Cholesterol Direct 32 mg/dL (0-129) 03/21/17 05:30 HDL Cholesterol 23 MG/DL (30-70) L 03/21/17 05:30 Lipase 25 U/L (23-300) 03/20/17 17:35 Vitamin B12 261 pg/mL (239-931) 03/21/17 05:30 Procalcitonin 3.76 NG/ML (0.19-0.49) H 03/21/17 19:54 TSH 3rd Generation 0.94 mIU/ML (0.46-4.68) 03/21/17 05:30 Venous Blood Potassium 3.4 mmol/L (3.6-5.2) L 03/20/17 19:36 Urine Color Olga (YELLOW) 03/20/17 22:09 Urine Clarity Cloudy (Clear) 03/20/17 22:09 Urine pH 5.0 (5.0-8.0) 03/20/17 22:09 Ur Specific Ezel 1.015 (1.003-1.030) 03/20/17 22:09 Urine Protein 100 mg/dL (NEGATIVE) 03/20/17 22:09 Urine Glucose (UA) Neg mg/dL (Normal) 03/20/17 22:09 Urine Ketones Trace mg/dL (NEGATIVE) 03/20/17 22:09 Urine Blood Negative (NEGATIVE) 03/20/17 22:09 Urine Nitrate Negative (NEGATIVE) 03/20/17 22:09 Urine Bilirubin Negative (NEGATIVE) 03/20/17 22:09 Urine Urobilinogen 2.0 mg/dL (0.2-1.0) H 03/20/17 22:09 Ur Leukocyte Esterase Large Glory/uL (Negative) 03/20/17 22:09 Urine RBC (Auto) 3 /hpf (0-3) 03/20/17 22:09 Urine WBC Clumps (Auto) Many /hpf (NONE) H 03/20/17 22:09 Urine Microscopic WBC 344 /hpf (0-5) H 03/20/17 22:09 Ur Squamous Epith Cells < 1 /hpf (0-5) 03/20/17 22:09 Urine Bacteria Many (<OCC) H 03/20/17 22:09 Urine Yeast (Budding) Occ /hpf (NEGATIVE) H 03/20/17 22:09 - Hospital Course Hospital Course: 81 y/o F admitted for evaluation and management of urosepsis. Pt was initiated empirically on Rocephin. Meropenem was added by ID a day later. Urine Cx showed ESBL Klebsiella pneumonia growth 2 days after. Ceftriaxone was stopped, marc catheter discontinued and maintained with IV Meropenem. Pt received 3 days of IV Meropenem therapy. Pt remained afebrile, alert and oriented in person and place, tolerating PO pureed diet. Pt is stable, will be discharged on PO Ciprofloxacin 250mg BID to complete [id number] therapy, will f/u with PMD within 1 week. - Date & Time of H&P Date of H&P: 03/20/17 Time of H&P: 23:38 Discharge Exam - Head Exam Head Exam: ATRAUMATIC, NORMOCEPHALIC - Eye Exam Eye Exam: EOMI, Normal appearance - ENT Exam ENT Exam: Mucous Membranes Dry - Neck Exam Neck exam: Full Rom - Respiratory Exam Respiratory Exam: NORMAL BREATHING PATTERN, UNREMARKABLE - Cardiovascular Exam Cardiovascular Exam: REGULAR RHYTHM, +S1, +S2 - GI/Abdominal Exam GI & Abdominal Exam: Normal Bowel Sounds, Soft, Unremarkable. absent: Distended , Guarding, Tenderness - Neurological Exam Neurological exam: Alert Discharge Plan - Discharge Medications Prescriptions: Ciprofloxacin [Cipro] 250 mg PO BID #13 tab - Follow Up Plan Condition: GUARDED Disposition: HOME/ ROUTINE Instructions: Urinary Tract Infection in Women (DC), Sepsis (DC) Additional Instructions: -Please complete antibiotic therapy 10 day-course. Ciprofloxacin 250mg Tab, please start with 1 pill tonight, then 2 times daily for 6 days. (the first 3 days of antibiotic therapy were given in the hospital.) -F/U with PMD Eddie eHnsley within 1 week. Completar antibiotico dos veces al sun por 10 coronado (los primeros 3 ya recibio aqui en hospital) Hacer fco con barros doctor primario dentro de job semana. Referrals: Eddie Holm MD [Family Provider] - Tj Guzmán MD [Medical Doctor] - <RuelTa - Last Filed: 03/26/17 06:50> Provider - Provider Date of Admission: 03/20/17 22:33 Attending physician: Eddie Holm MD Hospital Course - Lab Results Lab Results: Micro Results 03/20/17 17:35 Blood Blood Culture - Final NO GROWTH AFTER 5 DAYS 03/20/17 17:35 Blood Gram Stain - Final TEST NOT PERFORMED 03/20/17 22:10 Urine,Catheterized Urine Culture - Final Klebsiella Pneumoniae Ssp Pneu Most Recent Lab Values WBC 7.5 K/uL (4.8-10.8) 03/24/17 06:00 RBC 4.01 Mil/uL (3.80-5.20) 03/24/17 06:00 Hgb 10.4 g/dL (12.0-16.0) L 03/24/17 06:00 Hct 33.7 % (34.0-47.0) L 03/24/17 06:00 MCV 84.2 fl (81.0-99.0) 03/24/17 06:00 MCH 25.9 pg (27.0-31.0) L 03/24/17 06:00 MCHC 30.7 g/dL (33.0-37.0) L 03/24/17 06:00 RDW 16.5 % (11.5-14.5) H 03/24/17 06:00 Plt Count 293 K/uL (130-400) 03/24/17 06:00 MPV 9.1 fl (7.2-11.7) 03/23/17 09:45 Neut % (Auto) 69.0 % (50.0-75.0) 03/23/17 09:45 Lymph % (Auto) 18.7 % (20.0-40.0) L 03/23/17 09:45 [place] % (Auto) 8.2 % (0.0-10.0) 03/23/17 09:45 Eos % (Auto) 3.7 % (0.0-4.0) 03/23/17 09:45 Baso % (Auto) 0.4 % (0.0-2.0) 03/23/17 09:45 Neut # 6.4 K/uL (1.8-7.0) 03/23/17 09:45 Lymph # 1.7 K/uL (1.0-4.3) 03/23/17 09:45 [place] # 0.8 K/uL (0.0-0.8) 03/23/17 09:45 Eos # 0.3 K/uL (0.0-0.7) 03/23/17 09:45 Baso # 0.0 K/uL (0.0-0.2) 03/23/17 09:45 PT 13.2 Seconds (9.8-13.1) H 03/21/17 05:30 INR 1.2 (0.9-1.2) 03/21/17 05:30 APTT 31.3 Seconds (25.6-37.1) 03/21/17 05:30 pO2 24 mm/Hg (30-55) L 03/20/17 19:36 VBG pH 7.31 (7.32-7.43) L 03/20/17 19:36 VBG pCO2 63 mmHg (40-60) H 03/20/17 19:36 VBG HCO3 26.1 mmol/L 03/20/17 19:36 VBG Total CO2 33.6 mmol/L (22-28) H 03/20/17 19:36 VBG O2 Sat (Calc) 45.2 % (40-65) 03/20/17 19:36 VBG Base Excess 3.6 mmol/L (0.0-2.0) H 03/20/17 19:36 VBG Potassium 3.4 mmol/L (3.6-5.2) L 03/20/17 19:36 Sodium 134.0 mmol/L (132-148) 03/20/17 19:36 Chloride 97.0 mmol/L (98-107) L 03/20/17 19:36 Glucose 109 mg/dL (65-105) H 03/20/17 19:36 Lactate 1.5 mmol/L (0.7-2.1) 03/20/17 19:36 FiO2 21.0 % 03/20/17 19:36 Sodium 139 mmol/l (132-148) 03/24/17 06:00 Potassium 3.8 MMOL/L (3.6-5.0) 03/24/17 06:00 Chloride 100 mmol/L (98-107) 03/24/17 06:00 Carbon Dioxide 29 mmol/L (22-30) 03/24/17 06:00 Anion Gap 14 (10-20) 03/24/17 06:00 BUN 10 mg/dl (7-17) 03/24/17 06:00 Creatinine 0.9 mg/dl (0.7-1.2) 03/24/17 06:00 Est GFR ( Amer) > 60 03/24/17 06:00 Est GFR (Non-Af Amer) 60 03/24/17 06:00 POC Glucose (mg/dL) 107 mg/dL (65-110) 03/25/17 16:25 Random Glucose 96 mg/dL (65-105) 03/24/17 06:00 Hemoglobin A1c 6.5 % (4.2-6.5) 03/21/17 05:30 Calcium 8.0 mg/dL (8.4-10.2) L 03/24/17 06:00 Phosphorus 3.8 mg/dl (2.5-4.5) 03/21/17 05:30 Magnesium 1.5 MG/DL (1.6-2.3) L 03/21/17 05:30 Total Bilirubin 0.5 mg/dl (0.2-1.3) 03/23/17 09:45 AST 20 U/L (14-36) 03/23/17 09:45 ALT 35 U/L (9-52) 03/23/17 09:45 Alkaline Phosphatase 98 U/L (38-126) 03/23/17 09:45 Troponin I 0.0350 ng/mL (0.00-0.120) 03/20/17 17:35 NT-Pro-B Natriuret Pep 346 pg/ml (0-900) 03/21/17 05:30 Total Protein 5.6 G/DL (6.3-8.2) L 03/23/17 09:45 Albumin 2.4 g/dL (3.5-5.0) L 03/23/17 09:45 Globulin 3.2 gm/dL (2.2-3.9) 03/23/17 09:45 Albumin/Globulin Ratio 0.8 (1.0-2.1) L 03/23/17 09:45 Triglycerides 276 mg/DL (0-149) H D 03/21/17 05:30 Cholesterol 106 mg/dL (0-199) 03/21/17 05:30 LDL Cholesterol Direct 32 mg/dL (0-129) 03/21/17 05:30 HDL Cholesterol 23 MG/DL (30-70) L 03/21/17 05:30 Lipase 25 U/L (23-300) 03/20/17 17:35 Vitamin B12 261 pg/mL (239-931) 03/21/17 05:30 Procalcitonin 3.76 NG/ML (0.19-0.49) H 03/21/17 19:54 TSH 3rd Generation 0.94 mIU/ML (0.46-4.68) 03/21/17 05:30 Venous Blood Potassium 3.4 mmol/L (3.6-5.2) L 03/20/17 19:36 Urine Color Olga (YELLOW) 03/20/17 22:09 Urine Clarity Cloudy (Clear) 03/20/17 22:09 Urine pH 5.0 (5.0-8.0) 03/20/17 22:09 Ur Specific [place] 1.015 (1.003-1.030) 03/20/17 22:09 Urine Protein 100 mg/dL (NEGATIVE) 03/20/17 22:09 Urine Glucose (UA) Neg mg/dL (Normal) 03/20/17 22:09 Urine Ketones Trace mg/dL (NEGATIVE) 03/20/17 22:09 Urine Blood Negative (NEGATIVE) 03/20/17 22:09 Urine Nitrate Negative (NEGATIVE) 03/20/17 22:09 Urine Bilirubin Negative (NEGATIVE) 03/20/17 22:09 Urine Urobilinogen 2.0 mg/dL (0.2-1.0) H 03/20/17 22:09 Ur Leukocyte Esterase Large [place]/uL (Negative) 03/20/17 22:09 Urine RBC (Auto) 3 /hpf (0-3) 03/20/17 22:09 Urine WBC Clumps (Auto) Many /hpf (NONE) H 03/20/17 22:09 Urine Microscopic WBC 344 /hpf (0-5) H 03/20/17 22:09 Ur Squamous Epith Cells < 1 /hpf (0-5) 03/20/17 22:09 Urine Bacteria Many (<OCC) H 03/20/17 22:09 Urine Yeast (Budding) Occ /hpf (NEGATIVE) H 03/20/17 22:09 Attending/Attestation - Attestation I have personally seen and examined this patient.: Yes I have fully participated in the care of the patient.: Yes I have reviewed all pertinent clinical information, including history, physical exam and plan: Yes
[2017-03-25 15:50] VITALS: BP 146/67; PULSE 107; TEMP 99.8; O2SAT 83
--- NOTE | 2017-03-26 09:49 | PQF UROSEP ---
Dr. Infante discharge summary documented urosepsis. As this is a nonspecific code please clarify final diagnosis/diagnoses below. This form is a permanent part of the medical record Clarification of your documentation is requested to better reflect the severity of illness and intensity of treatment of your patient. Indicators present [] Documentation of UROSEPSIS [x] Fever or hypothermia [x] WBC count > 12,000/mm3 or <4000/mm3 or 10% immature neutrophils [] Hypotension [x] Tachycardia [] Altered mental status/confusion ] + Urine/Blood Cultures [] Other: [] Location in the medical record that reflects the above clinical findings: [] Treatment Provided: [] PHYSICIAN'S RESPONSE Based on your medical judgment of the clinical indicators outlined above, are you treating this patient for a known or suspected: [] Sepsis from a Urinary Source [] Localized Urinary Tract Infection - pyuria or bacteria in the urine [X] Other, please indicate [] Sepsis 2/2 Pneumonia [] If unable to determine, please check the box, sign and date. Present On Admission (POA) Indicator: [x] Present at the time of admission [] Not present at the time of admission [] Clinically Undetermined In responding to this query, please exercise your independent professional judgment. The fact that a question is asked does not imply that any particular answer is desired or expected. Thank you for your clarification on this documentation. If you have any questions please call:[ ] * Thank you, [ ]Anne RAHMAN Coder LOKESH
== END 2017-03-25 16:45 | disposition home or self-care (01) | DRG 871 ==
LOC: H.ER 15:52 → H.ERHOLD 22:33 → H.TEL 03-21 01:27 → H.MEDSURG1 03-21 19:17
PROVIDERS: ADMIT Family Medicine; ATTEND Family Medicine
DX: A41.9 Sepsis, unspecified organism (principal); J18.9 Pneumonia, unspecified organism; J90 Pleural effusion, not elsewhere classified; L89.151 Pressure ulcer of sacral region, stage 1; N17.9 Acute kidney failure, unspecified; E11.22 Type 2 diabetes mellitus with diabetic chronic kidney disease; F03.90 Unspecified dementia, unspecified severity, without behavioral disturbance, psychotic disturbance, mood disturbance, and anxiety; N39.0 Urinary tract infection, site not specified; R65.20 Severe sepsis without septic shock; Z74.01 Bed confinement status; E03.9 Hypothyroidism, unspecified; E78.00 Pure hypercholesterolemia, unspecified; I25.10 Atherosclerotic heart disease of native coronary artery without angina pectoris; I89.1 Lymphangitis; K86.9 Disease of pancreas, unspecified; E66.01 Morbid (severe) obesity due to excess calories; Z68.35 Body mass index [BMI] 35.0-35.9, adult; F32.9 Major depressive disorder, single episode, unspecified; F41.9 Anxiety disorder, unspecified; B96.1 Klebsiella pneumoniae [K. pneumoniae] as the cause of diseases classified elsewhere; R91.1 Solitary pulmonary nodule; I12.9 Hypertensive chronic kidney disease with stage 1 through stage 4 chronic kidney disease, or unspecified chronic kidney disease; N18.9 Chronic kidney disease, unspecified; M17.0 Bilateral primary osteoarthritis of knee; J44.9 Chronic obstructive pulmonary disease, unspecified

== ENCOUNTER 2017-03-30 20:50 | Inpatient (IN) | payer MEDICARE, MEDICAID ==
[2017-03-30] MEDS ORDERED: Albuterol-Ipratrop 3 mg / 0.5 (3 ml) UD INH STA (21:35)
--- NOTE | 2017-03-30 21:44 | ED PDOC ---
HPI: SOB/CHF/COPD Chief Complaint (Provider): shortness of breath History Per: Family Onset/Duration Of Symptoms: Hrs Current Symptoms Are (Timing): Better Recently: Hospitalized - Risk Factors PE Risk Factors: Pos: Decreased Mobilty /Activity, Recent Hospitalization <Karoline Escoto - Last Filed: 03/31/17 00:15> <Anne Marie Burroughs - Last Filed: 03/31/17 19:48> Time Seen by Provider: 03/30/17 21:10 Chief Complaint (Nursing): Shortness Of Breath Additional Complaint(s): Vanessa May is an 81 yo F with PMH COPD, diabetes mellitus, arthritis, recent discharge from inpt unit on Saturday03/25/17, presents to the ED today accompanied by her family due to an episode of shortness of breath. Pt is minimally verbal, history mostly obtained from pt's son, daughter, and son in law, who are present with her. As per family, earlier in the day pt experienced what they thought looked like an "anxiety attack," when she was observed gasping for air and coughing, and complaining of not being able to breathe, which led family to call EMS for transport to hospital. Pt states that it is hard for her to breathe. Denies chest pain, nausea, as per family had episode of diarrhea today. (Karoline Escoto) Past Medical History - Medical History PMH: Anxiety, Arthritis (BOTH KNEES), CAD, COPD, Dementia, Depression, Diabetes , HTN (NOT ON ANY MEDS), Hypercholesterolemia (NOT ON ANY MEDS), Hypothyroidism , Pneumonia, End Stage Renal Disease, Chronic Kidney Disease, Seizures Denies: Atrial Fibrillation, Cardia Arrhythmia, CHF, HIV, Mitral Valve Prolapse, Peripheral Edema - Surgical History Surgical History: Cholecystectomy Denies: Pacemaker - Family History Family History: States: Unknown Family Hx - Immunization History Hx Tetanus Toxoid Vaccination: Yes <Karoline Escoto - Last Filed: 03/31/17 00:15> <Anne Marie Burroughs - Last Filed: 03/31/17 19:48> Vital Signs: Last Vital Signs Temp 99.1 F 03/31/17 16:00 Pulse 107 H 03/31/17 18:00 Resp 22 03/31/17 15:48 BP 104/55 L 03/31/17 18:00 Pulse Ox 96 03/31/17 16:00 - Home Medications Home Medications: Ambulatory Orders Medication Instructions Recorded ALPRAZolam [Xanax] 0.25 mg PO HS 07/14/16 Levothyroxine [Synthroid] 25 mcg PO DAILY 07/14/16 Pantoprazole Sodium [Protonix] 40 mg PO DAILY 07/14/16 Acetaminophen [Tylenol 325mg tab] 650 mg PO Q4 PRN tab 08/04/16 guaiFENesin/Dextromethorphan 5 ml PO Q8H PRN 08/04/16 [Robitussin DM] Vitamin B Complex [Balance B-100] 1 tab PO DAILY 08/09/16 PARoxetine [Paxil] 30 mg PO DAILY #30 tab 08/14/16 Ciprofloxacin [Cipro] 250 mg PO BID #13 tab 03/25/17 - Allergies Allergies/Adverse Reactions: Allergies Allergy/AdvReac Type Severity Reaction Status Date / Time ambien AdvReac Severe HEADACHE Uncoded 03/20/17 16:47 Curb-65 Severity Score - CURB-65 Severity Score Confusion: No Bun >19mg/dl (>7mmol/L): No Respiratory Rate greater than/equal to 30: No Systolic BP <90 or Diastolic BP less than/equal 60mmHg: No Age >64: Yes Curb-65 Score: 1 Percentage 30-day mortality: 2.7% <Karoline Escoto - Last Filed: 03/31/17 00:15> Wells Criteria for PE - Wells Criteria for Pulmonary Embolism Clinical Signs and Symptoms of DVT: No P.E is #1 Diagnosis, or Equally Likely: No Heart Rate >100: Yes Immobilization at least 3 days;Surgery previous 4 weeks: No Previous, objectively diagnosed PE or DVT: No Hemoptysis: No Malignancy w/treatment within 6 months, or palliative: No Total Score: 1.5 <Karoline Escoto - Last Filed: 03/31/17 00:15> Review of Systems Review Of Systems: ROS cannot be obtained secondary to pt's inabilty to answer questions. (obtained via family members) Constitutional: Positive for: Weakness Eyes: Negative for: Vision Change ENT: Negative for: Throat Pain Cardiovascular: Negative for: Chest Pain Respiratory: Positive for: Cough, Shortness of Breath Gastrointestinal: Positive for: Diarrhea. Negative for: Nausea, Vomiting Skin: Negative for: Rash Psych: Positive for: Anxiety <JevonKaroline - Last Filed: 03/31/17 00:15> Physical Exam - Reviewed Vital Signs Reviewed: Yes - Physical Exam Appears: Positive for: No Acute Distress (but uncomfortable/chronically ill) Head Exam: Positive for: NORMAL INSPECTION Skin: Positive for: Warm, Dry Eye Exam: Positive for: PERRL. Negative for: Conjunctival injection, Scleral icterus ENT: Positive for: Pharynx Is (clear of erythema/edema), Hearing Is (diminished in general). Negative for: Pharyngeal Erythema Neck: Positive for: Normal, Supple Cardiovascular/Chest: Positive for: Chest Non Tender. Negative for: Edema, JVD , Murmur Respiratory: Positive for: Decreased Breath Sounds, Accessory Muscle Use, Rhonchi (diffuse throughout lung reyez bilaterally). Negative for: Respiratory Distress Gastrointestinal/Abdominal: Positive for: Bowel Sounds, Soft. Negative for: Tenderness, Distended (exam limited by body habitus, but does not appear distended) Rectal: Positive for: Deferred Extremity: Positive for: Other (no significant edema in lower extremities). Negative for: Tenderness, Deformity Neurologic/Psych: Positive for: Alert, Mood/Affect (anxious at times) <CrispinjeffreyyazKaroline - Last Filed: 03/31/17 00:15> - Laboratory Results Result Diagrams: 03/30/17 21:58 03/30/17 21:58 - ECG O2 Sat by Pulse Oximetry: 96 <CrispinKaroline quezada - Last Filed: 03/31/17 00:15> - Laboratory Results Result Diagrams: 03/31/17 08:00 03/31/17 07:30 <Anne Marie Burroughs - Last Filed: 03/31/17 19:48> Medical Decision Making <Karoline Escoto - Last Filed: 03/31/17 00:15> <Anne Marie Burroughs - Last Filed: 03/31/17 19:48> Medical Decision Making: Type and Screen VBG EKG Pro-BNP CMP CBC w/ diff Troponin D-dimer PT/PTT CXR Blood Cx Urine Cx Acetaminophen 325 mg Duoneb 6ml INH Tamiflu 75 mg PO Flu neg Troponin 0.766 Pro-BNP 71808 CXR shows L sided effusion/consolidation, possibly pneumonia Aspirin 325 mg PO Nitroglycerin 2% 0.5 inch patch Vancomycin 1gm Zosyn 3.375 gm Azithromycin 500 mg Cardiology consult- Dr. Gaspar Critical care consult - Dr. Patrick saw pt in ED; pt will be admitted to ICU Pt discussed with Dr. Burroughs (Karoline Escoto) Disposition - Patient ED Disposition Is Patient to be Admitted: Yes - Disposition Disposition Time: 00:13 - Pt Status Changed To: Hospital Disposition Of: Inpatient - Admit Certification Admit to Inpatient:: After my assessment, the patient will require hospitalization for at least two midnights. This is because of the severity of symptoms shown, intensity of services needed, and/or the medical risk in this patient being treated as an outpatient. <Karoline Escoto - Last Filed: 03/31/17 00:15> <Anne Marie Burroughs - Last Filed: 03/31/17 19:48> - Clinical Impression Clinical Impression: Non-ST elevation AK (NSTEMI), Pneumonia - Disposition Condition: STABLE
[2017-03-30 22:03] LABS: BASO # 0.1 K/uL (0.0-0.2); BASO % 0.6 % (0.0-2.0); EOS # 0.1 K/uL (0.0-0.7); EOS % 0.6 % (0.0-4.0); HEMOGLOBIN 11.9 g/dL (12.0-16.0); LYMPH # 1.7 K/uL (1.0-4.3); LYMPH % 12.5 % (20.0-40.0); MEAN CELL VOLUME 82.4 fl (81.0-99.0); MEAN CORPUSCULAR HEMOGLOBIN 25.2 pg (27.0-31.0); MEAN CORPUSCULAR HGB CONC 30.5 g/dL (33.0-37.0); MEAN PLATELET VOLUME 8.5 fl (7.2-11.7); MONO # 0.8 K/uL (0.0-0.8); MONO % 5.8 % (0.0-10.0); NEUT # 10.6 K/uL (1.8-7.0); NEUT % 80.5 % (50.0-75.0); RBC 4.74 Mil/uL (3.80-5.20); RED CELL DISTRIBUTION WIDTH 16.7 % (11.5-14.5); WHITE BLOOD COUNT 13.2 K/uL (4.8-10.8)
[2017-03-30 22:04] LABS: VENOUS BLOOD GAS BASE EXCESS 6.7 mmol/L (0.0-2.0); VENOUS BLOOD GAS PCO2 50 mmHg (40-60); VENOUS BLOOD GAS PO2 44 mm/Hg (30-55); VENOUS BLOOD PH 7.42 (7.32-7.43)
[2017-03-30] MEDS ORDERED: Albuterol-Ipratrop 3 mg / 0.5 (3 ml) UD ONE (22:07)
[2017-03-30 22:34] LABS: ALB/GLOB RATIO 0.8 (1.0-2.1); ALBUMIN 2.9 g/dL (3.5-5.0); BLOOD UREA NITROGEN 16 mg/dl (7-17); CALCIUM 8.1 mg/dL (8.4-10.2); GFR AFRICAN-AMERICAN > 60; GFR NON-AFRICAN AMERICAN 53
[2017-03-30 22:35] LABS: ALT/SGPT 23 U/L (9-52); AST/SGOT 35 U/L (14-36); B-TYPE NATRIURETIC PEPTIDE 34800 pg/ml (0-900)
[2017-03-30 22:43] LABS: INR 1.2 (0.9-1.2); PROTHROMBIN TIME 13.3 Seconds (9.8-13.1)
[2017-03-30] MEDS ORDERED: Nitroglycerin 2% Ointment Foilpak UD TOP STA ×2 (22:47→23:06)
[2017-03-30] MEDS ORDERED: Azithromycin 500 MG in Sodium Chloride 0.9% 250 ML IVPB STA (23:01)
[2017-03-30 23:03] LABS: ABG ALLEN TEST YES; ARTERIAL BLOOD GAS HCO3 29.4 mmol/L (21-28); ARTERIAL BLOOD GAS PCO2 44 mm/Hg (35-45); ARTERIAL BLOOD GAS PH 7.45 (7.35-7.45); ARTERIAL BLOOD GAS PO2 86 mm/Hg (80-100)
[2017-03-30] MEDS ORDERED: Piperacillin/Tazobact 3.375 GM in Sodium Chloride 0.9% 100 ML IVPB STA (23:03)
[2017-03-30] MEDS ORDERED: Nitroglycerin 2% Ointment Foilpak UD TOP ONE (23:09)
[2017-03-30] MEDS ORDERED: Piperacillin/Tazobact 3.375 gm Inj IVPB ONE (23:09)
[2017-03-30] MEDS ORDERED: guaiFENesin DM 100 mg-10 mg/5 ml UD PO PRN (23:21)
[2017-03-30] MEDS ORDERED: Albuterol-Ipratrop 3 mg / 0.5 (3 ml) UD INH PRN (23:29)
--- NOTE | 2017-03-30 23:40 | CP.PCM.CON ---
History of Present Illness - History of Present Illness History of Present Illness: CC/Reason for ICU: Multiple serious conditions/very frail patient History mostly from son and from chart, as patient did not interact much during h/p HPI: This is an 81 y/o female with MHx sig for COPD, HTN, and DM2, among other medical conditions who was just discharged from the hospital several days ago. Today, she appeared to be more short of breath, gasping for air, and coughing more. She c/o worsening SOB, and her family brought her in. Patient cannot provide much other history. Patient did not have n/v/d. Did not appear to be in pain. ROS: limited given patient did not participate in interview MHx: COPD on O2, DM2, HTN, hypothyroid SHx: Cholecystectomy Allergies: Ambien Medications: As per med rec Family Hx: Patient unable to provide details Social Hx: Patient lives alone, some family nearby; no current EtOH or tobacco Surrogate: Son, info on chart Past Patient History - Past Medical History & Family History Past Medical History?: Yes - Past Social History Smoking Status: Never Smoked - CARDIAC Hx Atrial Fibrillation: No Hx Cardia Arrhythmia: No Hx Congestive Heart Failure: No Hx Hypercholesterolemia: Yes (NOT ON ANY MEDS) Hx Hypertension: Yes (NOT ON ANY MEDS) Hx Mitral Valve Prolapse: No Hx Pacemaker: No Hx Peripheral Edema: No - PULMONARY Hx Chronic Obstructive Pulmonary Disease (COPD): Yes Hx Pneumonia: Yes - NEUROLOGICAL Hx Dementia: Yes Hx Seizures: Yes - HEENT Hx HEENT Problems: Yes - RENAL Hx Chronic Kidney Disease: Yes - ENDOCRINE/METABOLIC Hx Hypothyroidism: Yes - HEMATOLOGICAL/ONCOLOGICAL Hx Human Immunodeficiency Virus (HIV): No - INTEGUMENTARY Hx Dermatological Problems: No - MUSCULOSKELETAL/RHEUMATOLOGICAL Hx Arthritis: Yes (BOTH KNEES) - GASTROINTESTINAL Hx Gastrointestinal Disorders: No - GENITOURINARY/GYNECOLOGICAL Hx Genitourinary Disorders: No - PSYCHIATRIC Hx Anxiety: Yes Hx Depression: Yes - SURGICAL HISTORY Hx Cholecystectomy: Yes - ANESTHESIA Hx Anesthesia: Yes Hx Anesthesia Reactions: No Hx Malignant Hyperthermia: No Meds Allergies/Adverse Reactions: Allergies Allergy/AdvReac Type Severity Reaction Status Date / Time ambien AdvReac Severe HEADACHE Uncoded 03/20/17 16:47 - Medications Medications: Current Medications Acetaminophen (Tylenol 325mg Tab) 650 mg PO Q6H PRN PRN Reason: Pain, Mild (1-3) Acetaminophen (Tylenol 325mg Tab) 650 mg PO Q6H PRN PRN Reason: Fever >100.4 F Albuterol/Ipratropium (Duoneb 3 Mg/0.5 Mg (3 Ml) Ud) 3 ml INH RQ4 PRN PRN Reason: Shortness of Breath Aspirin (Aspirin) 325 mg PO DAILY [facility] Atorvastatin Calcium (Lipitor) 40 mg PO DAILY [facility] Stop: 03/30/17 23:37 Enoxaparin Sodium (Lovenox) 40 mg SC DAILY [facility] PRN Reason: Protocol Guaifenesin/Dextromethorphan (Robitussin Dm) 5 ml PO Q8H PRN PRN Reason: Cough Home Med (Vitamin B Complex [Balance B-100]) 1 tab PO DAILY [facility] Azithromycin 500 mg/ Sodium (Chloride) 250 mls @ 250 mls/hr IVPB STAT STA Stop: 03/31/17 00:00 Piperacillin Sod/Tazobactam (Sod 3.375 gm/ Sodium Chloride) 100 mls @ 100 mls/ hr IVPB STAT STA PRN Reason: Protocol Stop: 03/31/17 00:02 Last Admin: 03/30/17 23:20 Dose: 100 mls/hr Vancomycin HCl 1 gm/ Sodium (Chloride) 250 mls @ 166.667 mls/hr IV STAT STA PRN Reason: Protocol Stop: 03/31/17 00:29 Vancomycin HCl 1 gm/ Sodium (Chloride) 250 mls @ 166.667 mls/hr IVPB Q12 [facility] PRN Reason: Protocol Piperacillin Sod/Tazobactam (Sod 3.375 gm/ Sodium Chloride) 100 mls @ 100 mls/ hr IVPB Q6 [facility] PRN Reason: Protocol Levothyroxine Sodium (Synthroid) 25 mcg PO DAILY@0630 [facility] Pantoprazole Sodium (Protonix Ec Tab) 40 mg PO DAILY [facility] Paroxetine HCl (Paxil) 30 mg PO DAILY [facility] Physical Exam - Constitutional Appears: Chronically Ill - Head Exam Head Exam: ATRAUMATIC, NORMOCEPHALIC - Eye Exam Eye Exam: EOMI, PERRL - ENT Exam ENT Exam: Mucous Membranes Moist - Neck Exam Neck exam: Positive for: Full Rom - Respiratory Exam Respiratory Exam: Rales, Rhonchi - Cardiovascular Exam Cardiovascular Exam: Tachycardia, REGULAR RHYTHM, +S1, +S2 - GI/Abdominal Exam GI & Abdominal Exam: Normal Bowel Sounds, Soft - Extremities Exam Extremities exam: Positive for: normal inspection Additional comments: no significant edema - Neurological Exam Neurological exam: Alert, CN II-XII Intact, Oriented x3 - Psychiatric Exam Psychiatric exam: Normal Affect, Normal Mood - Skin Skin Exam: Dry, Warm Results - Vital Signs Recent Vital Signs: Last Vital Signs Temp 100.1 F H 03/30/17 22:51 Pulse 123 H 03/30/17 23:23 Resp 16 03/30/17 22:51 BP 142/95 H 03/30/17 23:23 Pulse Ox 96 03/30/17 23:24 - Labs Result Diagrams: 03/30/17 21:58 03/30/17 21:58 Labs: Laboratory Results - last 24 hr 03/30/17 03/30/17 03/30/17 21:46 21:58 21:58 WBC 13.2 H D RBC 4.74 Hgb 11.9 L Hct 39.0 MCV 82.4 MCH 25.2 L MCHC 30.5 L RDW 16.7 H Plt Count 318 MPV 8.5 Neut % (Auto) 80.5 H Lymph % (Auto) 12.5 L [place] % (Auto) 5.8 Eos % (Auto) 0.6 Baso % (Auto) 0.6 Neut # 10.6 H Lymph # 1.7 [place] # 0.8 Eos # 0.1 Baso # 0.1 PT INR APTT D-Dimer, Quantitative pCO2 pO2 44 HCO3 ABG pH ABG Total CO2 ABG O2 Saturation ABG Base Excess Pedro Test ABG Potassium VBG pH 7.42 VBG pCO2 50 VBG HCO3 29.8 VBG Total CO2 33.9 H VBG O2 Sat (Calc) 87.8 H VBG Base Excess 6.7 H VBG Potassium 3.8 A-a O2 Difference Sodium 134.0 137 Chloride 98.0 95 L Glucose 142 H Lactate 1.3 FiO2 21.0 Potassium 4.2 Carbon Dioxide 30 Anion Gap 16 BUN 16 Creatinine 1.0 Est GFR ( Amer) > 60 Est GFR (Non-Af Amer) 53 Random Glucose 137 H Calcium 8.1 L Total Bilirubin 0.7 AST 35 ALT 23 Alkaline Phosphatase 108 Troponin I 0.7660 H* NT-Pro-B Natriuret Pep 89591 H Total Protein 6.5 Albumin 2.9 L D Globulin 3.5 Albumin/Globulin Ratio 0.8 L Arterial Blood Potassium Venous Blood Potassium 3.8 Influenza Typ A,B (EIA) 03/30/17 03/30/17 03/30/17 21:58 21:59 22:47 WBC RBC Hgb Hct MCV MCH MCHC RDW Plt Count MPV Neut % (Auto) Lymph % (Auto) [place] % (Auto) Eos % (Auto) Baso % (Auto) Neut # Lymph # [place] # Eos # Baso # PT 13.3 H INR 1.2 APTT 32.0 D-Dimer, Quantitative 1247 H pCO2 44 pO2 86 HCO3 29.4 H ABG pH 7.45 ABG Total CO2 32.0 H ABG O2 Saturation 100.0 H ABG Base Excess 5.8 H Pedro Test Yes ABG Potassium 3.6 VBG pH VBG pCO2 VBG HCO3 VBG Total CO2 VBG O2 Sat (Calc) VBG Base Excess VBG Potassium A-a O2 Difference 144.0 Sodium 134.0 Chloride 97.0 L Glucose 144 H Lactate 1.4 FiO2 40.0 Potassium Carbon Dioxide Anion Gap BUN Creatinine Est GFR ( Amer) Est GFR (Non-Af Amer) Random Glucose Calcium Total Bilirubin AST ALT Alkaline Phosphatase Troponin I NT-Pro-B Natriuret Pep Total Protein Albumin Globulin Albumin/Globulin Ratio Arterial Blood Potassium 3.6 Venous Blood Potassium Influenza Typ A,B (EIA) Negative for flu a/b - EKG Data EKG Interpreted by: Myself EKG shows normal: Sinus rhythm - EKG Data EKG comments: left axis deviation, IVCD with RBBB pattern, poor quality - Imaging and Cardiology Chest x-ray Status: Image reviewed by me (R sided opacity, likely some evidence of vol overload) Assessment & Plan (1) HCAP (healthcare-associated pneumonia) Assessment and Plan: 81 y/o female with multiple medical conditions and recent hospital admission coming in with possible HCAP/sepsis, elevated troponins, and CHF/vol overload. 1) HCAP/Sepsis -Admit ICU -Continue vanc/zosyn IV -Duonebs -f/u cultures -will avoid excessive hydration at this time 2) Elevated trops/CHF -- trops may be 2/2 sepsis, but will eval for ACS -Serial trops -Echo in AM -EKG pending still -ASA 325 daily, will also start 40 mg lipitor; if trop is more elevated will consider lovenox and Plavix -If BP tolerates, may try to diurese with IV Lasix 3) ?DM2 -- DM2 noted in some prior charts -ACHS accucheck with SSI -DM2 diet 4) Hypothyroid -- cont home medication 5) DVT PPx -- SQ Lovenox Status: Acute (2) Elevated troponin Status: Acute (3) CHF (congestive heart failure) Status: Acute (4) DM2 (diabetes mellitus, type 2) Status: Acute (5) DVT prophylaxis Status: Acute Priority: Medium (6) Sepsis Status: Acute
--- NOTE | 2017-03-30 23:59 | CP.PCM.PN ---
Objective - Vital Signs/Intake and Output Vital Signs (last 24 hours): Temp Pulse Resp BP Pulse Ox 100.1 F H 123 H 16 142/95 H 96 03/30/17 22:51 03/30/17 23:23 03/30/17 22:51 03/30/17 23:23 03/30/17 23:24 - Medications Medications: Current Medications Acetaminophen (Tylenol 325mg Tab) 650 mg PO Q6H PRN PRN Reason: Pain, Mild (1-3) Acetaminophen (Tylenol 325mg Tab) 650 mg PO Q6H PRN PRN Reason: Fever >100.4 F Albuterol/Ipratropium (Duoneb 3 Mg/0.5 Mg (3 Ml) Ud) 3 ml INH RQ4 PRN PRN Reason: Shortness of Breath Aspirin (Aspirin) 325 mg PO DAILY [facility] Atorvastatin Calcium (Lipitor) 40 mg PO DAILY [facility] Enoxaparin Sodium (Lovenox) 40 mg SC DAILY [facility] PRN Reason: Protocol Guaifenesin/Dextromethorphan (Robitussin Dm) 5 ml PO Q8H PRN PRN Reason: Cough Home Med (Vitamin B Complex [Balance B-100]) 1 tab PO DAILY [facility] Azithromycin 500 mg/ Sodium (Chloride) 250 mls @ 250 mls/hr IVPB STAT STA Stop: 03/31/17 00:00 Piperacillin Sod/Tazobactam (Sod 3.375 gm/ Sodium Chloride) 100 mls @ 100 mls/ hr IVPB STAT STA PRN Reason: Protocol Stop: 03/31/17 00:02 Last Admin: 03/30/17 23:20 Dose: 100 mls/hr Vancomycin HCl 1 gm/ Sodium (Chloride) 250 mls @ 166.667 mls/hr IV STAT STA PRN Reason: Protocol Stop: 03/31/17 00:29 Vancomycin HCl 1 gm/ Sodium (Chloride) 250 mls @ 166.667 mls/hr IVPB Q12 [facility] PRN Reason: Protocol Piperacillin Sod/Tazobactam (Sod 3.375 gm/ Sodium Chloride) 100 mls @ 100 mls/ hr IVPB Q6 [facility] PRN Reason: Protocol Insulin Human Lispro (Humalog) 0 units SC ACHS [facility] PRN Reason: Protocol Levothyroxine Sodium (Synthroid) 25 mcg PO DAILY@0630 [facility] Pantoprazole Sodium (Protonix Ec Tab) 40 mg PO DAILY [facility] Paroxetine HCl (Paxil) 30 mg PO DAILY [facility] - Labs Labs: 03/30/17 21:58 03/30/17 21:58 PT 13.3 Seconds (9.8-13.1) H 03/30/17 21:58 INR 1.2 (0.9-1.2) 03/30/17 21:58 APTT 32.0 Seconds (25.6-37.1) 03/30/17 21:58
--- NOTE | 2017-03-31 00:02 | CP.PCM.HP ---
History of Present Illness - History of Present Illness History of Present Illness: 81 yo ,f, PMhx/o Dementia, NIDDM, Hypercholesterolemia, Pleural effusions, COPD , HTN, presents to ED brought in by her son who states that after patient was discharged Saturday03/25/17 she has been coughing more frequent, productive and unable to expectorate, associated with wheezing today and they reports that patient was gasping for air in the morning and she was c/o not being able to breath and for that reason they called EMS to bring her to the hospital. Hx/o was taken by patient's son who also stated that patient was taking antibiotics med at home and got nauseated, but had not vomiting. he denies chest pain, v,d, abd pain, dysuria. PT is minimally verbal but during exam is alert, able to open eyes and recognize her son. PMD: Dr Holm Allergies: Ambien PMH: COPD (oxygen dependent), Diabetes, HTN, pancreatic mass, Arthritis, Anxiety , Dialysis (//Sat), Hypothyroid PSH: Cholecystectomy ED: Course VS: febrile 100.1- 101.7 BP : 142/95. O2 96 RR:16 Labs: 13.2>11.9<318 Bun/Cr 16/1.0 GFR: 53 troponin I 0.7660, Pro BMP 55309, D Dimer 1247 Imaging: CXR: 03/31/17: RLL infiltrates and left pleural effusion. pending oficial reports EKG HR: 128, sinus tachy, LVH, old CT infarction, no acute changes compared last EKG CT chest pending report Meds: tylenol, duoneb x 2, nitroglycerin top, tamiflu 75 mg once, Zosyn/vanco x 1 dose Present on Admission - Present on Admission Any Indicators Present on Admission: No History of DVT/PE: No History of Uncontrolled Diabetes: No Urinary Catheter: No Review of Systems - Respiratory Respiratory: As Per HPI - Gastrointestinal Gastrointestinal: As Per HPI - Genitourinary Genitourinary: As Per HPI Past Patient History - Past Medical History & Family History Past Medical History?: Yes - Past Social History Smoking Status: Never Smoked - CARDIAC Hx Atrial Fibrillation: No Hx Cardia Arrhythmia: No Hx Congestive Heart Failure: No Hx Hypercholesterolemia: Yes (NOT ON ANY MEDS) Hx Hypertension: Yes (NOT ON ANY MEDS) Hx Mitral Valve Prolapse: No Hx Pacemaker: No Hx Peripheral Edema: No - PULMONARY Hx Chronic Obstructive Pulmonary Disease (COPD): Yes Hx Pneumonia: Yes - NEUROLOGICAL Hx Dementia: Yes Hx Seizures: Yes - HEENT Hx HEENT Problems: Yes - RENAL Hx Chronic Kidney Disease: Yes - ENDOCRINE/METABOLIC Hx Hypothyroidism: Yes - HEMATOLOGICAL/ONCOLOGICAL Hx Human Immunodeficiency Virus (HIV): No - INTEGUMENTARY Hx Dermatological Problems: No - MUSCULOSKELETAL/RHEUMATOLOGICAL Hx Arthritis: Yes (BOTH KNEES) - GASTROINTESTINAL Hx Gastrointestinal Disorders: No - GENITOURINARY/GYNECOLOGICAL Hx Genitourinary Disorders: No - PSYCHIATRIC Hx Anxiety: Yes Hx Depression: Yes - SURGICAL HISTORY Hx Cholecystectomy: Yes - ANESTHESIA Hx Anesthesia: Yes Hx Anesthesia Reactions: No Hx Malignant Hyperthermia: No Meds Allergies/Adverse Reactions: Allergies Allergy/AdvReac Type Severity Reaction Status Date / Time ambien AdvReac Severe HEADACHE Uncoded 03/20/17 16:47 Physical Exam - Constitutional Appears: Non-toxic - Head Exam Head Exam: ATRAUMATIC, NORMOCEPHALIC - Eye Exam Eye Exam: Normal appearance - ENT Exam ENT Exam: Mucous Membranes Moist - Neck Exam Neck exam: Positive for: Normal Inspection - Respiratory Exam Respiratory Exam: Decreased Breath Sounds, Rales. absent: Rhonchi, Wheezes Additional comments: b/l lung bases - Cardiovascular Exam Cardiovascular Exam: Tachycardia, +S1, +S2 - GI/Abdominal Exam GI & Abdominal Exam: Normal Bowel Sounds, Soft. absent: Tenderness - Extremities Exam Extremities exam: Positive for: normal inspection. Negative for: pedal edema - Back Exam Back exam: NORMAL INSPECTION - Neurological Exam Neurological exam: Alert - Psychiatric Exam Psychiatric exam: Normal Mood - Skin Skin Exam: Intact Results - Vital Signs Recent Vital Signs: Last Vital Signs Temp 100.1 F H 03/30/17 22:51 Pulse 123 H 03/30/17 23:23 Resp 16 03/30/17 22:51 BP 142/95 H 03/30/17 23:23 Pulse Ox 96 03/30/17 23:24 - Labs Result Diagrams: 03/30/17 21:58 03/30/17 21:58 Labs: Laboratory Results - last 24 hr 03/30/17 03/30/17 03/30/17 21:46 21:58 21:58 WBC 13.2 H D RBC 4.74 Hgb 11.9 L Hct 39.0 MCV 82.4 MCH 25.2 L MCHC 30.5 L RDW 16.7 H Plt Count 318 MPV 8.5 Neut % (Auto) 80.5 H Lymph % (Auto) 12.5 L [place] % (Auto) 5.8 Eos % (Auto) 0.6 Baso % (Auto) 0.6 Neut # 10.6 H Lymph # 1.7 [place] # 0.8 Eos # 0.1 Baso # 0.1 PT INR APTT D-Dimer, Quantitative pCO2 pO2 44 HCO3 ABG pH ABG Total CO2 ABG O2 Saturation ABG Base Excess Pedro Test ABG Potassium VBG pH 7.42 VBG pCO2 50 VBG HCO3 29.8 VBG Total CO2 33.9 H VBG O2 Sat (Calc) 87.8 H VBG Base Excess 6.7 H VBG Potassium 3.8 A-a O2 Difference Sodium 134.0 137 Chloride 98.0 95 L Glucose 142 H Lactate 1.3 FiO2 21.0 Potassium 4.2 Carbon Dioxide 30 Anion Gap 16 BUN 16 Creatinine 1.0 Est GFR ( Amer) > 60 Est GFR (Non-Af Amer) 53 Random Glucose 137 H Calcium 8.1 L Total Bilirubin 0.7 AST 35 ALT 23 Alkaline Phosphatase 108 Troponin I 0.7660 H* NT-Pro-B Natriuret Pep 45488 H Total Protein 6.5 Albumin 2.9 L D Globulin 3.5 Albumin/Globulin Ratio 0.8 L Arterial Blood Potassium Venous Blood Potassium 3.8 Influenza Typ A,B (EIA) 03/30/17 03/30/17 03/30/17 21:58 21:59 22:47 WBC RBC Hgb Hct MCV MCH MCHC RDW Plt Count MPV Neut % (Auto) Lymph % (Auto) [place] % (Auto) Eos % (Auto) Baso % (Auto) Neut # Lymph # [place] # Eos # Baso # PT 13.3 H INR 1.2 APTT 32.0 D-Dimer, Quantitative 1247 H pCO2 44 pO2 86 HCO3 29.4 H ABG pH 7.45 ABG Total CO2 32.0 H ABG O2 Saturation 100.0 H ABG Base Excess 5.8 H Pedro Test Yes ABG Potassium 3.6 VBG pH VBG pCO2 VBG HCO3 VBG Total CO2 VBG O2 Sat (Calc) VBG Base Excess VBG Potassium A-a O2 Difference 144.0 Sodium 134.0 Chloride 97.0 L Glucose 144 H Lactate 1.4 FiO2 40.0 Potassium Carbon Dioxide Anion Gap BUN Creatinine Est GFR ( Amer) Est GFR (Non-Af Amer) Random Glucose Calcium Total Bilirubin AST ALT Alkaline Phosphatase Troponin I NT-Pro-B Natriuret Pep Total Protein Albumin Globulin Albumin/Globulin Ratio Arterial Blood Potassium 3.6 Venous Blood Potassium Influenza Typ A,B (EIA) Negative for flu a/b Assessment & Plan - Assessment and Plan (Free Text) Plan: Assessment/Plan 81 y/o F with PMHx of Dementia, NIDDM, Hypercholesterolemia, Pleural effusions, COPD, HTN, recent discharged from hospital for UTI, admitted for PNA, sepsis 1) HAP -had recent hospitalization -fever, leukocytosis --CXR on 03/20/17 showed a new round opacity right upper madelin-thorax common non- specific. Consider further evaluation with CT scan. -CT of Chest on 03/22/17: probable mucoid impaction in RUL bronchi. Recommend 3- months f/u. -CXR 03/31/17: RLL infiltrates and left pleural effusion. pending official reports -s/p Vanco /Zosyn ED -c/w Vanco/ Zosyn -f/u CBC, CMP, lactic acid 2) Sepsis -SIRS( fever, leukocytosis, tachycardia) + RLL infiltrate -Pending UA, recent UTI infection treated -Pending CXR report 3) CHF Exacerbation -Pro BMP [id number] -CXR: Congestion and LLL pleural effusion -Lasix 40 mg IV -c/w lasix as BP permit -f/u Echo -Machine Wiper consult suggested Dr Gaspar 4) High level D dimer -to r/o PE vs elevation due to sepsis -high risk for DVT/PE. pt bed bound -CT Chest angio: pending report. 5) High levels troponin -may be secondary to sepsis, hypoxia vs NSTMI -Trop 0.7660, f/u 2 next trop -EKG HR: 128, sinus tachy, LVH, old CT infarction, no acute changes compared last EKG -f/u EKG in the morning 6) DM -chronic - not home meds -SSI -Hypoglycemia protocol 7) Hx/o Hypothyroidism -c/w home medications -TSH 0/9 03/21/18 -Levothyroxine 25 mcg daily 8) Hx/o COPD -Duoneb PRN q 4h 9) CKD 3A GFR: 53 Bun/Cr 16/1.0 10) DVT Prophylaxis -Heparin 5000 u sc TID -Diet Pureed and liquid recommended pureed diet and liquids.
[2017-03-31] MEDS ORDERED: Azithromycin 500 MG IV IVPB ONE (00:18)
[2017-03-31 02:01] LABS: SQUAMOUS EPITHIAL 1 /hpf (0-5); URINE BILIRUBIN NEGATIVE (NEGATIVE); URINE BLOOD NEGATIVE (NEGATIVE); URINE CLARITY CLOUDY (Clear); URINE COLOR YELLOW (YELLOW); URINE GLUCOSE (UA) NEG (Normal); URINE LEUKOCYTE ESTERASE TRACE Leu/uL (Negative); URINE NITRATE NEGATIVE (NEGATIVE); URINE PROTEIN 100 mg/dL (NEGATIVE); URINE UROBILINOGEN 0.2-1.0 mg/dL (0.2-1.0)
[2017-03-31] MEDS ORDERED: Iodixanol 320 MG/ML 100 ML BOTTLE IV ONE (02:38)
[2017-03-31] MEDS ORDERED: Sodium Chloride 0.9% 50 ML IV ONE (02:39)
--- NOTE | 2017-03-31 04:32 | CT ---
EXAM: CT Angiography Chest With Intravenous Contrast CLINICAL HISTORY: 81 years old, female; Signs and symptoms; Shortness of breath; Additional info: SOB TECHNIQUE: Axial computed tomographic angiography images of the chest with intravenous contrast using pulmonary embolism protocol. All CT scans at this facility use one or more dose reduction techniques, viz.: automated exposure control; ma/kV adjustment per patient size (including targeted exams where dose is matched to indication; i.e. head); or iterative reconstruction technique. MIP reconstructed images were created and reviewed. Coronal and sagittal reformatted images were created and reviewed. CONTRAST: 95 mL of [id number] administered intravenously. COMPARISON: CT - CHEST W/O CONTRAST 2017-03-22 11:09 FINDINGS: Artifacts: Motion artifact does moderately limit the sensitivity of this examination. Pulmonary arteries: Linear filling defects in the right main, proximal right upper and lower lobe pulmonary arteries are suspicious for chronic pulmonary emboli. Aorta: The aorta demonstrates moderate atherosclerotic calcification. No thoracic aortic aneurysm. Lungs: Small to moderate bilateral pleural effusions with underlying consolidation secondary to compressive atelectasis or infiltrate, increased. Right upper lobe opacity secondary to atelectasis or infiltrate, new compared to the prior study. Mild biapical pleural-parenchymal scarring. There is a tubular opacity in the peripheral right upper lobe suggesting mucus plugging, unchanged. Pleural space: See above. Heart: The heart is enlarged. Coronary artery calcification. No significant pericardial effusion. No evidence of RV dysfunction. Bones/joints: There is moderate diffuse osteopenia. There degenerative changes at multiple levels in the thoracic spine. Stable compression deformity of the T12 vertebral body. No dislocation. Soft tissues: Unremarkable. Lymph nodes: There a few mildly prominent mediastinal lymph nodes measuring up to 10 mm. No evidence of adenopathy. The IMPRESSION: Findings suggest chronic pulmonary embolism in the right main, upper and lower lobe pulmonary arteries. Bilateral pleural effusions with overlying consolidation secondary to compressive atelectasis or infiltrate, increased compared to the prior study. Right upper lobe mucoid impaction. New right upper lobe opacity secondary to atelectasis or infiltrate.
[2017-03-31] MEDS ORDERED: Enoxaparin 100 mg Syringe SC STA (05:39)
[2017-03-31] MEDS: Piperacillin/Tazobact 3.375 GM in Sodium Chloride 0.9% 100 ML IVPB SCH ×6 (06:02→23:22)
--- NOTE | 2017-03-31 07:33 | CP.CCUPN ---
CCU Subjective - Physician Review Events Since Last Encounter (Free Text): 03/31/17 07:29 Patient awake, no distress, on O2 supplement by nasal canula, no fever, no pressors, events reviewed CCU Objective - Vital Signs / Intake & Output Intake and Output (Last 8hrs): Intake & Output 03/30/17 03/31/17 03/31/17 22:59 06:59 14:59 Weight 220 lb - Physical Exam Head: Positive for: Atraumatic, Normocephalic Pupils: Positive for: PERRL Conjunctiva: Positive for: Normal Mouth: Positive for: Moist Mucous Membranes Pharnyx: Positive for: Normal Nose (External): Positive for: Atraumatic Neck: Positive for: Normal Range of Motion Respiratory/Chest: Positive for: Rales Cardiovascular: Positive for: Regular Rate and Rhythm Abdomen: Positive for: Normal Bowel Sounds Upper Extremity: Positive for: Normal Inspection Lower Extremity: Positive for: Normal Inspection Neurological: Positive for: Speech Normal Psychiatric: Positive for: Alert - Medications Active Medications: Active Medications Generic Name Dose Route Start Last Admin Trade Name Freq PRN Reason Stop Dose Admin Acetaminophen 650 mg 03/30/17 23:30 Tylenol 325mg Tab PO Q6H PRN Pain, Mild (1-3) Acetaminophen 650 mg 03/30/17 23:30 Tylenol 325mg Tab PO Q6H PRN Fever >100.4 F Albuterol/Ipratropium 3 ml 03/30/17 23:29 Duoneb 3 Mg/0.5 Mg (3 Ml) Ud INH RQ4 PRN Shortness of Breath Aspirin 325 mg 03/31/17 09:00 Aspirin PO DAILY [facility] Atorvastatin Calcium 40 mg 03/30/17 23:36 03/31/17 01:39 Lipitor PO 40 mg DAILY [facility] Administration Enoxaparin Sodium 100 mg 03/31/17 18:00 Lovenox SC Q12 [facility] Protocol Furosemide 40 mg 03/31/17 12:40 Lasix IV 03/31/17 12:41 ONCE ONE Guaifenesin/Dextromethorphan 5 ml 03/30/17 23:21 Robitussin Dm PO Q8H PRN Cough Vancomycin HCl 1 gm/ Sodium 250 mls @ 166.667 mls/hr 03/31/17 09:00 Chloride IVPB Q12 [facility] Protocol Piperacillin Sod/Tazobactam 100 mls @ 100 mls/hr 03/31/17 06:30 03/31/17 06: 40 Sod 3.375 gm/ Sodium Chloride IVPB Not Given 0000,0600,1200,1800 [facility] Protocol Insulin Human Lispro 0 units 03/31/17 07:30 Humalog SC ACHS [facility] Protocol Levothyroxine Sodium 25 mcg 03/31/17 06:30 Synthroid PO DAILY@0630 [facility] Pantoprazole Sodium 40 mg 03/31/17 09:00 Protonix Ec Tab PO DAILY [facility] Paroxetine HCl 30 mg 03/31/17 09:00 Paxil PO DAILY [facility] - Patient Studies Lab Studies: Lab Studies 03/31/17 03/31/17 03/30/17 Range/Units 01:54 01:43 22:47 WBC (4.8-10.8) K/uL RBC (3.80-5.20) Mil/uL Hgb (12.0-16.0) g/dL Hct (34.0-47.0) % MCV (81.0-99.0) fl MCH (27.0-31.0) pg MCHC (33.0-37.0) g/dL RDW (11.5-14.5) % Plt Count (130-400) K/uL MPV (7.2-11.7) fl Neut % (Auto) (50.0-75.0) % Lymph % (Auto) (20.0-40.0) % Preston % (Auto) (0.0-10.0) % Eos % (Auto) (0.0-4.0) % Baso % (Auto) (0.0-2.0) % Neut # (1.8-7.0) K/uL Lymph # (1.0-4.3) K/uL Preston # (0.0-0.8) K/uL Eos # (0.0-0.7) K/uL Baso # (0.0-0.2) K/uL PT (9.8-13.1) Seconds INR (0.9-1.2) APTT (25.6-37.1) Seconds D-Dimer, Quantitative (0-230) ng/mlDDU pCO2 44 (35-45) mm/Hg pO2 86 (30-55) mm/Hg HCO3 29.4 H (21-28) mmol/L ABG pH 7.45 (7.35-7.45) ABG Total CO2 32.0 H (22-28) mmol/L ABG O2 Saturation 100.0 H (95-98) % ABG Base Excess 5.8 H (-2.0-3.0) mmol/L Pedro Test Yes ABG Potassium 3.6 (3.6-5.2) mmol/L VBG pH (7.32-7.43) VBG pCO2 (40-60) mmHg VBG HCO3 mmol/L VBG Total CO2 (22-28) mmol/L VBG O2 Sat (Calc) (40-65) % VBG Base Excess (0.0-2.0) mmol/L VBG Potassium (3.6-5.2) mmol/L A-a O2 Difference 144.0 mm/Hg Sodium 134.0 (132-148) mmol/L Chloride 97.0 L (98-107) mmol/L Glucose 144 H (65-105) mg/dL Lactate 1.4 (0.7-2.1) mmol/L FiO2 40.0 % Potassium (3.6-5.0) MMOL/L Carbon Dioxide (22-30) mmol/L Anion Gap (10-20) BUN (7-17) mg/dl Creatinine (0.7-1.2) mg/dl Est GFR ( Amer) Est GFR (Non-Af Amer) POC Glucose (mg/dL) 96 (65-110) mg/dL Random Glucose (65-105) mg/dL Calcium (8.4-10.2) mg/dL Total Bilirubin (0.2-1.3) mg/dl AST (14-36) U/L ALT (9-52) U/L Alkaline Phosphatase (38-126) U/L Troponin I (0.00-0.120) ng/mL NT-Pro-B Natriuret Pep (0-900) pg/ml Total Protein (6.3-8.2) G/DL Albumin (3.5-5.0) g/dL Globulin (2.2-3.9) gm/dL Albumin/Globulin Ratio (1.0-2.1) Arterial Blood Potassium 3.6 (3.6-5.2) mmol/L Venous Blood Potassium (3.6-5.2) mmol/L Urine Color Yellow (YELLOW) Urine Clarity Cloudy (Clear) Urine pH 5.0 (5.0-8.0) Ur Specific [place] 1.020 (1.003-1.030) Urine Protein 100 (NEGATIVE) mg/dL Urine Glucose (UA) Neg (Normal) mg/dL Urine Ketones Trace (NEGATIVE) mg/dL Urine Blood Negative (NEGATIVE) Urine Nitrate Negative (NEGATIVE) Urine Bilirubin Negative (NEGATIVE) Urine Urobilinogen 0.2-1.0 (0.2-1.0) mg/dL Ur Leukocyte Esterase Trace (Negative) Glory/uL Urine RBC (Auto) 3 (0-3) /hpf Urine Microscopic WBC 6 H (0-5) /hpf Ur Squamous Epith Cells 1 (0-5) /hpf Influenza Typ A,B (EIA) (NEGATIVE) 03/30/17 03/30/17 03/30/17 Range/Units 21:59 21:58 21:58 WBC 13.2 H D (4.8-10.8) K/uL RBC 4.74 (3.80-5.20) Mil/uL Hgb 11.9 L (12.0-16.0) g/dL Hct 39.0 (34.0-47.0) % MCV 82.4 (81.0-99.0) fl MCH 25.2 L (27.0-31.0) pg MCHC 30.5 L (33.0-37.0) g/dL RDW 16.7 H (11.5-14.5) % Plt Count 318 (130-400) K/uL MPV 8.5 (7.2-11.7) fl Neut % (Auto) 80.5 H (50.0-75.0) % Lymph % (Auto) 12.5 L (20.0-40.0) % Preston % (Auto) 5.8 (0.0-10.0) % Eos % (Auto) 0.6 (0.0-4.0) % Baso % (Auto) 0.6 (0.0-2.0) % Neut # 10.6 H (1.8-7.0) K/uL Lymph # 1.7 (1.0-4.3) K/uL Preston # 0.8 (0.0-0.8) K/uL Eos # 0.1 (0.0-0.7) K/uL Baso # 0.1 (0.0-0.2) K/uL PT 13.3 H (9.8-13.1) Seconds INR 1.2 (0.9-1.2) APTT 32.0 (25.6-37.1) Seconds D-Dimer, Quantitative 1247 H (0-230) ng/mlDDU pCO2 (35-45) mm/Hg pO2 (30-55) mm/Hg HCO3 (21-28) mmol/L ABG pH (7.35-7.45) ABG Total CO2 (22-28) mmol/L ABG O2 Saturation (95-98) % ABG Base Excess (-2.0-3.0) mmol/L Pedro Test ABG Potassium (3.6-5.2) mmol/L VBG pH (7.32-7.43) VBG pCO2 (40-60) mmHg VBG HCO3 mmol/L VBG Total CO2 (22-28) mmol/L VBG O2 Sat (Calc) (40-65) % VBG Base Excess (0.0-2.0) mmol/L VBG Potassium (3.6-5.2) mmol/L A-a O2 Difference mm/Hg Sodium (132-148) mmol/L Chloride (98-107) mmol/L Glucose (65-105) mg/dL Lactate (0.7-2.1) mmol/L FiO2 % Potassium (3.6-5.0) MMOL/L Carbon Dioxide (22-30) mmol/L Anion Gap (10-20) BUN (7-17) mg/dl Creatinine (0.7-1.2) mg/dl Est GFR ( Amer) Est GFR (Non-Af Amer) POC Glucose (mg/dL) (65-110) mg/dL Random Glucose (65-105) mg/dL Calcium (8.4-10.2) mg/dL Total Bilirubin (0.2-1.3) mg/dl AST (14-36) U/L ALT (9-52) U/L Alkaline Phosphatase (38-126) U/L Troponin I (0.00-0.120) ng/mL NT-Pro-B Natriuret Pep (0-900) pg/ml Total Protein (6.3-8.2) G/DL Albumin (3.5-5.0) g/dL Globulin (2.2-3.9) gm/dL Albumin/Globulin Ratio (1.0-2.1) Arterial Blood Potassium (3.6-5.2) mmol/L Venous Blood Potassium (3.6-5.2) mmol/L Urine Color (YELLOW) Urine Clarity (Clear) Urine pH (5.0-8.0) Ur Specific [place] (1.003-1.030) Urine Protein (NEGATIVE) mg/dL Urine Glucose (UA) (Normal) mg/dL Urine Ketones (NEGATIVE) mg/dL Urine Blood (NEGATIVE) Urine Nitrate (NEGATIVE) Urine Bilirubin (NEGATIVE) Urine Urobilinogen (0.2-1.0) mg/dL Ur Leukocyte Esterase (Negative) Glory/uL Urine RBC (Auto) (0-3) /hpf Urine Microscopic WBC (0-5) /hpf Ur Squamous Epith Cells (0-5) /hpf Influenza Typ A,B (EIA) Negative for flu a/b (NEGATIVE) 03/30/17 03/30/17 Range/Units 21:58 21:46 WBC (4.8-10.8) K/uL RBC (3.80-5.20) Mil/uL Hgb (12.0-16.0) g/dL Hct (34.0-47.0) % MCV (81.0-99.0) fl MCH (27.0-31.0) pg MCHC (33.0-37.0) g/dL RDW (11.5-14.5) % Plt Count (130-400) K/uL MPV (7.2-11.7) fl Neut % (Auto) (50.0-75.0) % Lymph % (Auto) (20.0-40.0) % Preston % (Auto) (0.0-10.0) % Eos % (Auto) (0.0-4.0) % Baso % (Auto) (0.0-2.0) % Neut # (1.8-7.0) K/uL Lymph # (1.0-4.3) K/uL Preston # (0.0-0.8) K/uL Eos # (0.0-0.7) K/uL Baso # (0.0-0.2) K/uL PT (9.8-13.1) Seconds INR (0.9-1.2) APTT (25.6-37.1) Seconds D-Dimer, Quantitative (0-230) ng/mlDDU pCO2 (35-45) mm/Hg pO2 44 (30-55) mm/Hg HCO3 (21-28) mmol/L ABG pH (7.35-7.45) ABG Total CO2 (22-28) mmol/L ABG O2 Saturation (95-98) % ABG Base Excess (-2.0-3.0) mmol/L Pedro Test ABG Potassium (3.6-5.2) mmol/L VBG pH 7.42 (7.32-7.43) VBG pCO2 50 (40-60) mmHg VBG HCO3 29.8 mmol/L VBG Total CO2 33.9 H (22-28) mmol/L VBG O2 Sat (Calc) 87.8 H (40-65) % VBG Base Excess 6.7 H (0.0-2.0) mmol/L VBG Potassium 3.8 (3.6-5.2) mmol/L A-a O2 Difference mm/Hg Sodium 137 134.0 (132-148) mmol/L Chloride 95 L 98.0 (98-107) mmol/L Glucose 142 H (65-105) mg/dL Lactate 1.3 (0.7-2.1) mmol/L FiO2 21.0 % Potassium 4.2 (3.6-5.0) MMOL/L Carbon Dioxide 30 (22-30) mmol/L Anion Gap 16 (10-20) BUN 16 (7-17) mg/dl Creatinine 1.0 (0.7-1.2) mg/dl Est GFR ( Amer) > 60 Est GFR (Non-Af Amer) 53 POC Glucose (mg/dL) (65-110) mg/dL Random Glucose 137 H (65-105) mg/dL Calcium 8.1 L (8.4-10.2) mg/dL Total Bilirubin 0.7 (0.2-1.3) mg/dl AST 35 (14-36) U/L ALT 23 (9-52) U/L Alkaline Phosphatase 108 (38-126) U/L Troponin I 0.7660 H* (0.00-0.120) ng/mL NT-Pro-B Natriuret Pep 70769 H (0-900) pg/ml Total Protein 6.5 (6.3-8.2) G/DL Albumin 2.9 L D (3.5-5.0) g/dL Globulin 3.5 (2.2-3.9) gm/dL Albumin/Globulin Ratio 0.8 L (1.0-2.1) Arterial Blood Potassium (3.6-5.2) mmol/L Venous Blood Potassium 3.8 (3.6-5.2) mmol/L Urine Color (YELLOW) Urine Clarity (Clear) Urine pH (5.0-8.0) Ur Specific [place] (1.003-1.030) Urine Protein (NEGATIVE) mg/dL Urine Glucose (UA) (Normal) mg/dL Urine Ketones (NEGATIVE) mg/dL Urine Blood (NEGATIVE) Urine Nitrate (NEGATIVE) Urine Bilirubin (NEGATIVE) Urine Urobilinogen (0.2-1.0) mg/dL Ur Leukocyte Esterase (Negative) Glory/uL Urine RBC (Auto) (0-3) /hpf Urine Microscopic WBC (0-5) /hpf Ur Squamous Epith Cells (0-5) /hpf Influenza Typ A,B (EIA) (NEGATIVE) Laboratory Results - last 24 hr 03/30/17 03/30/17 03/30/17 21:46 21:58 21:58 WBC 13.2 H D RBC 4.74 Hgb 11.9 L Hct 39.0 MCV 82.4 MCH 25.2 L MCHC 30.5 L RDW 16.7 H Plt Count 318 MPV 8.5 Neut % (Auto) 80.5 H Lymph % (Auto) 12.5 L Preston % (Auto) 5.8 Eos % (Auto) 0.6 Baso % (Auto) 0.6 Neut # 10.6 H Lymph # 1.7 Preston # 0.8 Eos # 0.1 Baso # 0.1 PT INR APTT D-Dimer, Quantitative pCO2 pO2 44 HCO3 ABG pH ABG Total CO2 ABG O2 Saturation ABG Base Excess Pedro Test ABG Potassium VBG pH 7.42 VBG pCO2 50 VBG HCO3 29.8 VBG Total CO2 33.9 H VBG O2 Sat (Calc) 87.8 H VBG Base Excess 6.7 H VBG Potassium 3.8 A-a O2 Difference Sodium 134.0 137 Chloride 98.0 95 L Glucose 142 H Lactate 1.3 FiO2 21.0 Potassium 4.2 Carbon Dioxide 30 Anion Gap 16 BUN 16 Creatinine 1.0 Est GFR ( Amer) > 60 Est GFR (Non-Af Amer) 53 POC Glucose (mg/dL) Random Glucose 137 H Calcium 8.1 L Total Bilirubin 0.7 AST 35 ALT 23 Alkaline Phosphatase 108 Troponin I 0.7660 H* NT-Pro-B Natriuret Pep 11496 H Total Protein 6.5 Albumin 2.9 L D Globulin 3.5 Albumin/Globulin Ratio 0.8 L Arterial Blood Potassium Venous Blood Potassium 3.8 Urine Color Urine Clarity Urine pH Ur Specific [place] Urine Protein Urine Glucose (UA) Urine Ketones Urine Blood Urine Nitrate Urine Bilirubin Urine Urobilinogen Ur Leukocyte Esterase Urine RBC (Auto) Urine Microscopic WBC Ur Squamous Epith Cells Influenza Typ A,B (EIA) 03/30/17 03/30/17 03/30/17 21:58 21:59 22:47 WBC RBC Hgb Hct MCV MCH MCHC RDW Plt Count MPV Neut % (Auto) Lymph % (Auto) Preston % (Auto) Eos % (Auto) Baso % (Auto) Neut # Lymph # Preston # Eos # Baso # PT 13.3 H INR 1.2 APTT 32.0 D-Dimer, Quantitative 1247 H pCO2 44 pO2 86 HCO3 29.4 H ABG pH 7.45 ABG Total CO2 32.0 H ABG O2 Saturation 100.0 H ABG Base Excess 5.8 H Pedro Test Yes ABG Potassium 3.6 VBG pH VBG pCO2 VBG HCO3 VBG Total CO2 VBG O2 Sat (Calc) VBG Base Excess VBG Potassium A-a O2 Difference 144.0 Sodium 134.0 Chloride 97.0 L Glucose 144 H Lactate 1.4 FiO2 40.0 Potassium Carbon Dioxide Anion Gap BUN Creatinine Est GFR ( Amer) Est GFR (Non-Af Amer) POC Glucose (mg/dL) Random Glucose Calcium Total Bilirubin AST ALT Alkaline Phosphatase Troponin I NT-Pro-B Natriuret Pep Total Protein Albumin Globulin Albumin/Globulin Ratio Arterial Blood Potassium 3.6 Venous Blood Potassium Urine Color Urine Clarity Urine pH Ur Specific [place] Urine Protein Urine Glucose (UA) Urine Ketones Urine Blood Urine Nitrate Urine Bilirubin Urine Urobilinogen Ur Leukocyte Esterase Urine RBC (Auto) Urine Microscopic WBC Ur Squamous Epith Cells Influenza Typ A,B (EIA) Negative for flu a/b 03/31/17 03/31/17 01:43 01:54 WBC RBC Hgb Hct MCV MCH MCHC RDW Plt Count MPV Neut % (Auto) Lymph % (Auto) [place] % (Auto) Eos % (Auto) Baso % (Auto) Neut # Lymph # Preston # Eos # Baso # PT INR APTT D-Dimer, Quantitative pCO2 pO2 HCO3 ABG pH ABG Total CO2 ABG O2 Saturation ABG Base Excess Pedro Test ABG Potassium VBG pH VBG pCO2 VBG HCO3 VBG Total CO2 VBG O2 Sat (Calc) VBG Base Excess VBG Potassium A-a O2 Difference Sodium Chloride Glucose Lactate FiO2 Potassium Carbon Dioxide Anion Gap BUN Creatinine Est GFR ( Amer) Est GFR (Non-Af Amer) POC Glucose (mg/dL) 96 Random Glucose Calcium Total Bilirubin AST ALT Alkaline Phosphatase Troponin I NT-Pro-B Natriuret Pep Total Protein Albumin Globulin Albumin/Globulin Ratio Arterial Blood Potassium Venous Blood Potassium Urine Color Yellow Urine Clarity Cloudy Urine pH 5.0 Ur Specific [place] 1.020 Urine Protein 100 Urine Glucose (UA) Neg Urine Ketones Trace Urine Blood Negative Urine Nitrate Negative Urine Bilirubin Negative Urine Urobilinogen 0.2-1.0 Ur Leukocyte Esterase Trace Urine RBC (Auto) 3 Urine Microscopic WBC 6 H Ur Squamous Epith Cells 1 Influenza Typ A,B (EIA) EKG/Cardiology Studies: Cardiology / EKG Studies 03/30/17 21:30 ELECTROCARDIOGRAM Stat Comment: Mode Of Transportation: Reason For Exam: sob Isolation: Contact 03/31/17 06:00 EKG [ELECTROCARDIOGRAM] Routine Comment: Mode Of Transportation: PORTABLE Reason For Exam: SOB. Abnormal troponin Isolation: Contact Fingerstick Blood Sugar Results: 96 Critical Care Progress Note - Nutrition Nutrition: Nutrition Category Date Time Status Pureed [Dysphagia/Modified Consistency Diet] [DIET] Diets 03/31/17 Breakfast Active Assessment/Plan - Assessment and Plan (Free Text) Assessment: A/P Respiratory insufficiency, pneumonia, ?sepsis, elevated troponin, CHF, DM, hypothyroid - Continue meds - O2 supplement - Pulmonary toilets - Cardiac enzymes - DVT prophylaxis
[2017-03-31] MEDS: Levothyroxine 25 MCG TAB PO SCH (08:14)
[2017-03-31] MEDS: Pantoprazole 40 mg EC Tab PO SCH (08:17)
[2017-03-31] MEDS: Insulin Lispro (humaLOG) 100 Units/ml Inj SC SCH ×4 (08:18→22:00)
[2017-03-31] MEDS ORDERED: Enoxaparin 40 mg Syringe SC SCH (09:00)
[2017-03-31] MEDS ORDERED: VITAMIN B COMPLEX PO SCH (09:00)
--- NOTE | 2017-03-31 09:11 | CP.PCM.PN ---
Subjective - Date & Time of Evaluation Date of Evaluation: 03/31/17 Time of Evaluation: 08:30 - Subjective Subjective: 81 y/o F evaluated and examined by bedside. Pt is responsive, tolerating PO. Pt was having a fever of 101.5degF this morning, pt received PO Tylenol. Pt continuously coughing, productive with thick dark sputum. Pt receiving O2 by nasal cannula. Objective - Vital Signs/Intake and Output Vital Signs (last 24 hours): Temp Pulse Resp BP Pulse Ox 101.5 F H 116 H 23 121/66 99 03/31/17 08:00 03/31/17 08:00 03/31/17 08:00 03/31/17 08:00 03/31/17 08:00 Intake and Output: 03/31/17 03/31/17 06:59 18:59 Intake Total 800 Balance 800 - Medications Medications: Current Medications Acetaminophen (Tylenol 325mg Tab) 650 mg PO Q6H PRN PRN Reason: Pain, Mild (1-3) Last Admin: 03/31/17 08:14 Dose: 650 mg Acetaminophen (Tylenol 325mg Tab) 650 mg PO Q6H PRN PRN Reason: Fever >100.4 F Albuterol/Ipratropium (Duoneb 3 Mg/0.5 Mg (3 Ml) Ud) 3 ml INH RQ4 PRN PRN Reason: Shortness of Breath Aspirin (Aspirin) 325 mg PO DAILY [facility] Last Admin: 03/31/17 08:18 Dose: 325 mg Atorvastatin Calcium (Lipitor) 40 mg PO DAILY [facility] Last Admin: 03/31/17 08:18 Dose: 40 mg Enoxaparin Sodium (Lovenox) 100 mg SC Q12 [facility] PRN Reason: Protocol Furosemide (Lasix) 40 mg IV ONCE ONE Stop: 03/31/17 12:41 Guaifenesin/Dextromethorphan (Robitussin Dm) 5 ml PO Q8H PRN PRN Reason: Cough Vancomycin HCl 1 gm/ Sodium (Chloride) 250 mls @ 166.667 mls/hr IVPB Q12 [facility] PRN Reason: Protocol Last Admin: 03/31/17 08:16 Dose: 166.667 mls/hr Piperacillin Sod/Tazobactam (Sod 3.375 gm/ Sodium Chloride) 100 mls @ 100 mls/ hr IVPB 0000,0600,1200,1800 [facility] PRN Reason: Protocol Last Admin: 03/31/17 06:40 Dose: Not Given Insulin Human Lispro (Humalog) 0 units SC ACHS [facility] PRN Reason: Protocol Last Admin: 03/31/17 08:18 Dose: Not Given Levothyroxine Sodium (Synthroid) 25 mcg PO DAILY@0630 [facility] Last Admin: 03/31/17 08:14 Dose: 25 mcg Pantoprazole Sodium (Protonix Ec Tab) 40 mg PO DAILY [facility] Last Admin: 03/31/17 08:17 Dose: 40 mg Paroxetine HCl (Paxil) 30 mg PO DAILY [facility] Last Admin: 03/31/17 08:17 Dose: 30 mg - Labs Labs: 03/30/17 21:58 03/30/17 21:58 PT 13.3 Seconds (9.8-13.1) H 03/30/17 21:58 INR 1.2 (0.9-1.2) 03/30/17 21:58 APTT 32.0 Seconds (25.6-37.1) 03/30/17 21:58 - Constitutional Appears: Well - Head Exam Head Exam: ATRAUMATIC, NORMAL INSPECTION - Eye Exam Eye Exam: EOMI, Normal appearance - ENT Exam ENT Exam: Mucous Membranes Dry - Neck Exam Neck Exam: Full ROM. absent: Meningismus - Respiratory Exam Respiratory Exam: Decreased Breath Sounds, Rales, Rhonchi Additional comments: Presence of ronchi and rales over b/l lower reyez, predominantly on R side. - Cardiovascular Exam Cardiovascular Exam: +S1, +S2 - GI/Abdominal Exam GI & Abdominal Exam: Soft, Normal Bowel Sounds - Neurological Exam Neurological Exam: Awake Assessment and Plan - Assessment and Plan (Free Text) Assessment: 81 y/o F with PMHx of Dementia, NIDDM, Hypercholesterolemia, Pleural effusions, COPD, HTN, recent discharged from hospital due to UTI, admitted for evaluation of pneumonia and suspected sepsis. Plan: 1.Pneumonia, HAP vs Aspiration Pneumonia - Had recent hospitalization for Sepsis due to UTI. - On previous admission, CXR on 03/20/17 showed a new round opacity right upper madelin-thorax common non-specific. CT of Chest on 03/22/17: probable mucoid impaction in RUL bronchi. Recommend 3-months f/u. - During this admission: CXR 03/31/17 showed rounded masslike densities RUL, small right sided effusion with right basilar atelectasis and/or R sided effusion with R basilar atelectasis and/or infiltrate. - Chest CT with constrast on 03/31/17 showed chronic PE in R main, upper and lower lobe pulmonary arteries. B/L pleural effusions with overlying consolidation secondary to compressive atelectasis of infiltrate. RUL mucoid impaction. New RUL opacity secondary to atelectasis or infiltrate. - Lactate 1.4-WNL on 03/30/17, yesterday. - On Vancomycin and Zosyn. - c/w PO pureed diet with liquids. 2. Sepsis - SIRS( fever, leukocytosis, tachycardia) + RLL infiltrate - U/A on 03/31/17 showed leukocyte esterase and neg nitrate. 3. Elevated troponin/CHF Exacerbation -Pro BMP 53081 -1st Troponin 0.766-elevated, 2nd Troponin 0.478-elevated. -EKG HR: 128, sinus tachy, LVH, old TN infarction, no acute changes compared last EKG -CXR: Congestion and LLL pleural effusion -S/P Lasix 40 mg IV 1xdose. -f/u Echocardiogram -Marketing Director consult, Dr Aziza Gaspar. F/U recommendations. 4. Chronic Pulmonary Embolism -D-dimer 1247-elevated -PE vs elevation due to sepsis -High risk for DVT/PE. pt bed bound -Chest CT with constrast on 03/31/17 showed chronic PE in R main, upper and lower lobe pulmonary arteries. B/L pleural effusions with overlying consolidation secondary to compressive atelectasis of infiltrate. RUL mucoid impaction. New RUL opacity secondary to atelectasis or infiltrate. -C/w Enoxaparin 100mg Q12H -Considering home therapy with Xarelto 15mg PO Q12H for the first 21 days and then 20mg daily for 6 months. 5. DM -chronic -not home meds -SSI -Hypoglycemia protocol 6. Hx/o Hypothyroidism -c/w home medications -TSH 0.9 03/21/18 -Levothyroxine 25 mcg daily 7. Hx/o COPD -Duoneb PRN q 4h 8. CKD 3A GFR: 53 Bun/Cr 16/1.0 9. Prophylaxis -Enoxaparin 100mg Q12H -Diet Pureed and liquid recommended pureed diet and liquids.
[2017-03-31 09:33] LABS: BASO # 0.1 K/uL (0.0-0.2); BASO % 0.5 % (0.0-2.0); EOS # 0.1 K/uL (0.0-0.7); EOS % 0.8 % (0.0-4.0); HEMOGLOBIN 12.1 g/dL (12.0-16.0); LYMPH # 2.3 K/uL (1.0-4.3); LYMPH % 14.2 % (20.0-40.0); MEAN CELL VOLUME 83.5 fl (81.0-99.0); MEAN CORPUSCULAR HEMOGLOBIN 25.5 pg (27.0-31.0); MEAN CORPUSCULAR HGB CONC 30.6 g/dL (33.0-37.0); MEAN PLATELET VOLUME 8.3 fl (7.2-11.7); MONO # 1.2 K/uL (0.0-0.8); MONO % 7.7 % (0.0-10.0); NEUT # 12.3 K/uL (1.8-7.0); NEUT % 76.8 % (50.0-75.0); NRBC % 0.2 % (0.0-0.0); RBC 4.75 Mil/uL (3.80-5.20); RED CELL DISTRIBUTION WIDTH 16.9 % (11.5-14.5)
--- NOTE | 2017-03-31 09:59 | RAD ---
HISTORY: sob COMPARISON: .Comparison chest 03/20/2017 comparison also made with CTA chest 03/31/2017 FINDINGS: LUNGS: Rounded masslike densities right upper lobe is partially obscured by a metal cardiac lead. Central pulmonary vasculature appears mildly congested with left lower lobe opacifications likely representing some combination of atelectasis/ infiltrate and moderate-sized effusion. Small right-sided effusion with right basilar atelectasis and/or infiltrate. PLEURA: As above. No pneumothorax apparent. CARDIOVASCULAR: Normal. OSSEOUS STRUCTURES: No significant abnormalities. VISUALIZED UPPER ABDOMEN: Normal. OTHER FINDINGS: None. IMPRESSION: Rounded masslike densities right upper lobe is partially obscured by a metal cardiac lead. Followup at interval recommended to assess resolution and exclude malignancy Central pulmonary vasculature appears mildly congested with left lower lobe opacifications likely representing some combination of atelectasis/ infiltrate and moderate-sized effusion. Small right-sided effusion with right basilar atelectasis and/or infiltrate.
--- NOTE | 2017-03-31 13:07 | CP.PCM.CON ---
History of Present Illness - History of Present Illness History of Present Illness: This 81-year-old female was brought to the emergency room with a persistent cough and shortness of breath and febrile. She is a chronically ill patient who is bed and chair bound and is looked after by the nursing unit manager. The patient has had a history of dementia and has had multiple hospitalizations including one recently at approximately 10 days back. She was treated for urinary tract infection at that time. She has a history off pleural effusions. This consultation was requested because of elevated troponin levels. The patient is a long-standing diabetic. She also has chronic bilateral pleural effusions. The history was obtained by reviewing earlier medical records and by interviewing the nursing unit manager. Physical examination shows an elderly female who can be easily aroused but does not appear to be fully aware of her surroundings. She cannot answer very simple questions. She had a fever of 101F hour and a half back and has responded to Tylenol with resolution of her fever. Her respiratory rate was 20 breaths per minute and her pulse oximetry was 94-95% while on oxygen supplement by nasal cannula. Her heart rate was 110 bpm regular and her blood pressure was 90/50 mmHg. Her jugular venous pressure could not be assessed because of a short thick neck. There was mild bilateral pedal edema. Pedal pulses were not palpable. The apex was not palpable. The first and second heart sounds were distant but normal. There was no gallop rhythm. Air entry was markedly reduced at both bases. inspiratory effort was very poor. Abdomen was soft liver and spleen are not palpable. Her electrocardiogram shows sinus tachycardia with intraventricular conduction abnormality suggestive of a right bundle branch block. Review of her earlier electrocardiograms show evidence of a right bundle-branch block. There were Q waves in leads 23 and aVF suggestive of an old inferior wall myocardial infarction. Lab data shows leukocytosis. Neutrophil with 76%. Her BUN/creatinine were 16 and 1 mg percent even though review off her earlier admissions show a creatinine as high as 6.4% early in 2017. Her proBNP was 34,800 pg per mL. Her troponins where 0.7 and 0.[address] Review off her CT of the chest shows evidence of chronic pulmonary embolism and bilateral pleural effusions with infiltrates. Right ventricle appeared to be normal in size. Coronary calcification was detected. Impression: Elevated troponins in the patient who is septic and diabetic. Her sepsis is appropriately being treated and the patient is receiving intravenous fluids. I have requested an electrocardiogram for tomorrow and a metabolic profile today. An echocardiogram will also be obtained tomorrow to assess her right ventricle and left ventricle given the evidence of old pulmonary emboli. Past Patient History - Past Medical History & Family History Past Medical History?: Yes - Past Social History Smoking Status: Never Smoked - CARDIAC Hx Atrial Fibrillation: No Hx Cardia Arrhythmia: No Hx Congestive Heart Failure: No Hx Hypercholesterolemia: Yes (NOT ON ANY MEDS) Hx Hypertension: Yes (NOT ON ANY MEDS) Hx Mitral Valve Prolapse: No Hx Pacemaker: No Hx Peripheral Edema: No - PULMONARY Hx Chronic Obstructive Pulmonary Disease (COPD): Yes Hx Pneumonia: Yes - NEUROLOGICAL Hx Dementia: Yes Hx Seizures: Yes - HEENT Hx HEENT Problems: Yes - RENAL Hx Chronic Kidney Disease: Yes - ENDOCRINE/METABOLIC Hx Hypothyroidism: Yes - HEMATOLOGICAL/ONCOLOGICAL Hx Human Immunodeficiency Virus (HIV): No - INTEGUMENTARY Hx Dermatological Problems: No - MUSCULOSKELETAL/RHEUMATOLOGICAL Hx Arthritis: Yes (BOTH KNEES) - GASTROINTESTINAL Hx Gastrointestinal Disorders: No - GENITOURINARY/GYNECOLOGICAL Hx Genitourinary Disorders: No - PSYCHIATRIC Hx Anxiety: Yes Hx Depression: Yes - SURGICAL HISTORY Hx Cholecystectomy: Yes - ANESTHESIA Hx Anesthesia: Yes Hx Anesthesia Reactions: No Hx Malignant Hyperthermia: No Meds Allergies/Adverse Reactions: Allergies Allergy/AdvReac Type Severity Reaction Status Date / Time ambien AdvReac Severe HEADACHE Uncoded 03/20/17 16:47 - Medications Medications: Current Medications Acetaminophen (Tylenol 325mg Tab) 650 mg PO Q6H PRN PRN Reason: Pain, Mild (1-3) Last Admin: 03/31/17 08:14 Dose: 650 mg Acetaminophen (Tylenol 325mg Tab) 650 mg PO Q6H PRN PRN Reason: Fever >100.4 F Albuterol/Ipratropium (Duoneb 3 Mg/0.5 Mg (3 Ml) Ud) 3 ml INH RQ4 PRN PRN Reason: Shortness of Breath Aspirin (Aspirin) 325 mg PO DAILY [facility] Last Admin: 03/31/17 08:18 Dose: 325 mg Atorvastatin Calcium (Lipitor) 40 mg PO DAILY [facility] Last Admin: 03/31/17 08:18 Dose: 40 mg Enoxaparin Sodium (Lovenox) 100 mg SC Q12 [facility] PRN Reason: Protocol Guaifenesin/Dextromethorphan (Robitussin Dm) 5 ml PO Q8H PRN PRN Reason: Cough Vancomycin HCl 1 gm/ Sodium (Chloride) 250 mls @ 166.667 mls/hr IVPB Q12 [facility] PRN Reason: Protocol Last Admin: 03/31/17 08:16 Dose: 166.667 mls/hr Piperacillin Sod/Tazobactam (Sod 3.375 gm/ Sodium Chloride) 100 mls @ 100 mls/ hr IVPB 0000,0600,1200,1800 [facility] PRN Reason: Protocol Last Admin: 03/31/17 11:39 Dose: 100 mls/hr Insulin Human Lispro (Humalog) 0 units SC ACHS [facility] PRN Reason: Protocol Last Admin: 03/31/17 11:35 Dose: Not Given Levothyroxine Sodium (Synthroid) 25 mcg PO DAILY@0630 [facility] Last Admin: 03/31/17 08:14 Dose: 25 mcg Pantoprazole Sodium (Protonix Ec Tab) 40 mg PO DAILY [facility] Last Admin: 03/31/17 08:17 Dose: 40 mg Paroxetine HCl (Paxil) 30 mg PO DAILY [facility] Last Admin: 03/31/17 08:17 Dose: 30 mg Results - Vital Signs Recent Vital Signs: Last Vital Signs Temp 99 F 03/31/17 09:14 Pulse 116 H 03/31/17 08:00 Resp 23 03/31/17 08:00 BP 121/66 03/31/17 08:00 Pulse Ox 99 03/31/17 08:00 - Labs Result Diagrams: 03/31/17 08:00 03/30/17 21:58 Labs: Laboratory Results - last 24 hr 03/30/17 03/30/17 03/30/17 21:46 21:58 21:58 WBC 13.2 H D RBC 4.74 Hgb 11.9 L Hct 39.0 MCV 82.4 MCH 25.2 L MCHC 30.5 L RDW 16.7 H Plt Count 318 MPV 8.5 Neut % (Auto) 80.5 H Lymph % (Auto) 12.5 L [place] % (Auto) 5.8 Eos % (Auto) 0.6 Baso % (Auto) 0.6 Neut # 10.6 H Lymph # 1.7 [place] # 0.8 Eos # 0.1 Baso # 0.1 PT INR APTT D-Dimer, Quantitative pCO2 pO2 44 HCO3 ABG pH ABG Total CO2 ABG O2 Saturation ABG Base Excess Pedro Test ABG Potassium VBG pH 7.42 VBG pCO2 50 VBG HCO3 29.8 VBG Total CO2 33.9 H VBG O2 Sat (Calc) 87.8 H VBG Base Excess 6.7 H VBG Potassium 3.8 A-a O2 Difference Sodium 134.0 137 Chloride 98.0 95 L Glucose 142 H Lactate 1.3 FiO2 21.0 Potassium 4.2 Carbon Dioxide 30 Anion Gap 16 BUN 16 Creatinine 1.0 Est GFR ( Amer) > 60 Est GFR (Non-Af Amer) 53 POC Glucose (mg/dL) Random Glucose 137 H Lactic Acid Calcium 8.1 L Total Bilirubin 0.7 AST 35 ALT 23 Alkaline Phosphatase 108 Troponin I 0.7660 H* NT-Pro-B Natriuret Pep 55097 H Total Protein 6.5 Albumin 2.9 L D Globulin 3.5 Albumin/Globulin Ratio 0.8 L Arterial Blood Potassium Venous Blood Potassium 3.8 Urine Color Urine Clarity Urine pH Ur Specific [place] Urine Protein Urine Glucose (UA) Urine Ketones Urine Blood Urine Nitrate Urine Bilirubin Urine Urobilinogen Ur Leukocyte Esterase Urine RBC (Auto) Urine Microscopic WBC Ur Squamous Epith Cells Influenza Typ A,B (EIA) 03/30/17 03/30/17 03/30/17 21:58 21:59 22:47 WBC RBC Hgb Hct MCV MCH MCHC RDW Plt Count MPV Neut % (Auto) Lymph % (Auto) [place] % (Auto) Eos % (Auto) Baso % (Auto) Neut # Lymph # [place] # Eos # Baso # PT 13.3 H INR 1.2 APTT 32.0 D-Dimer, Quantitative 1247 H pCO2 44 pO2 86 HCO3 29.4 H ABG pH 7.45 ABG Total CO2 32.0 H ABG O2 Saturation 100.0 H ABG Base Excess 5.8 H [place] Test Yes ABG Potassium 3.6 VBG pH VBG pCO2 VBG HCO3 VBG Total CO2 VBG O2 Sat (Calc) VBG Base Excess VBG Potassium A-a O2 Difference 144.0 Sodium 134.0 Chloride 97.0 L Glucose 144 H Lactate 1.4 FiO2 40.0 Potassium Carbon Dioxide Anion Gap BUN Creatinine Est GFR ( Amer) Est GFR (Non-Af Amer) POC Glucose (mg/dL) Random Glucose Lactic Acid Calcium Total Bilirubin AST ALT Alkaline Phosphatase Troponin I NT-Pro-B Natriuret Pep Total Protein Albumin Globulin Albumin/Globulin Ratio Arterial Blood Potassium 3.6 Venous Blood Potassium Urine Color Urine Clarity Urine pH Ur Specific [place] Urine Protein Urine Glucose (UA) Urine Ketones Urine Blood Urine Nitrate Urine Bilirubin Urine Urobilinogen Ur Leukocyte Esterase Urine RBC (Auto) Urine Microscopic WBC Ur Squamous Epith Cells Influenza Typ A,B (EIA) Negative for flu a/b 03/31/17 03/31/17 03/31/17 01:43 01:54 06:55 WBC RBC Hgb Hct MCV MCH MCHC RDW Plt Count MPV Neut % (Auto) Lymph % (Auto) [place] % (Auto) Eos % (Auto) Baso % (Auto) Neut # Lymph # [place] # Eos # Baso # PT INR APTT D-Dimer, Quantitative pCO2 pO2 HCO3 ABG pH ABG Total CO2 ABG O2 Saturation ABG Base Excess [place] Test ABG Potassium VBG pH VBG pCO2 VBG HCO3 VBG Total CO2 VBG O2 Sat (Calc) VBG Base Excess VBG Potassium A-a O2 Difference Sodium Chloride Glucose Lactate FiO2 Potassium Carbon Dioxide Anion Gap BUN Creatinine Est GFR ( Amer) Est GFR (Non-Af Amer) POC Glucose (mg/dL) 96 Random Glucose Lactic Acid Calcium Total Bilirubin AST ALT Alkaline Phosphatase Troponin I 0.4780 H* NT-Pro-B Natriuret Pep Total Protein Albumin Globulin Albumin/Globulin Ratio Arterial Blood Potassium Venous Blood Potassium Urine Color Yellow Urine Clarity Cloudy Urine pH 5.0 Ur Specific [place] 1.020 Urine Protein 100 Urine Glucose (UA) Neg Urine Ketones Trace Urine Blood Negative Urine Nitrate Negative Urine Bilirubin Negative Urine Urobilinogen 0.2-1.0 Ur Leukocyte Esterase Trace Urine RBC (Auto) 3 Urine Microscopic WBC 6 H Ur Squamous Epith Cells 1 Influenza Typ A,B (EIA) 03/31/17 03/31/17 03/31/17 06:55 07:46 08:00 WBC 16.0 H RBC 4.75 Hgb 12.1 Hct 39.6 MCV 83.5 MCH 25.5 L MCHC 30.6 L RDW 16.9 H Plt Count 305 MPV 8.3 Neut % (Auto) 76.8 H Lymph % (Auto) 14.2 L [place] % (Auto) 7.7 Eos % (Auto) 0.8 Baso % (Auto) 0.5 Neut # 12.3 H Lymph # 2.3 [place] # 1.2 H Eos # 0.1 Baso # 0.1 PT INR APTT D-Dimer, Quantitative pCO2 pO2 HCO3 ABG pH ABG Total CO2 ABG O2 Saturation ABG Base Excess [place] Test ABG Potassium VBG pH VBG pCO2 VBG HCO3 VBG Total CO2 VBG O2 Sat (Calc) VBG Base Excess VBG Potassium A-a O2 Difference Sodium Chloride Glucose Lactate FiO2 Potassium Carbon Dioxide Anion Gap BUN Creatinine Est GFR ( Amer) Est GFR (Non-Af Amer) POC Glucose (mg/dL) 95 Random Glucose Lactic Acid 1.8 Calcium Total Bilirubin AST ALT Alkaline Phosphatase Troponin I NT-Pro-B Natriuret Pep Total Protein Albumin Globulin Albumin/Globulin Ratio Arterial Blood Potassium Venous Blood Potassium Urine Color Urine Clarity Urine pH Ur Specific [place] Urine Protein Urine Glucose (UA) Urine Ketones Urine Blood Urine Nitrate Urine Bilirubin Urine Urobilinogen Ur Leukocyte Esterase Urine RBC (Auto) Urine Microscopic WBC Ur Squamous Epith Cells Influenza Typ A,B (EIA) 03/31/17 11:18 WBC RBC Hgb Hct MCV MCH MCHC RDW Plt Count MPV Neut % (Auto) Lymph % (Auto) [place] % (Auto) Eos % (Auto) Baso % (Auto) Neut # Lymph # [place] # Eos # Baso # PT INR APTT D-Dimer, Quantitative pCO2 pO2 HCO3 ABG pH ABG Total CO2 ABG O2 Saturation ABG Base Excess [place] Test ABG Potassium VBG pH VBG pCO2 VBG HCO3 VBG Total CO2 VBG O2 Sat (Calc) VBG Base Excess VBG Potassium A-a O2 Difference Sodium Chloride Glucose Lactate FiO2 Potassium Carbon Dioxide Anion Gap BUN Creatinine Est GFR ( Amer) Est GFR (Non-Af Amer) POC Glucose (mg/dL) 94 Random Glucose Lactic Acid Calcium Total Bilirubin AST ALT Alkaline Phosphatase Troponin I NT-Pro-B Natriuret Pep Total Protein Albumin Globulin Albumin/Globulin Ratio Arterial Blood Potassium Venous Blood Potassium Urine Color Urine Clarity Urine pH Ur Specific [place] Urine Protein Urine Glucose (UA) Urine Ketones Urine Blood Urine Nitrate Urine Bilirubin Urine Urobilinogen Ur Leukocyte Esterase Urine RBC (Auto) Urine Microscopic WBC Ur Squamous Epith Cells Influenza Typ A,B (EIA)
[2017-03-31] MEDS ORDERED: Glucagon Recombinant 1 mg Inj IM PRN (13:16)
[2017-03-31] MEDS ORDERED: Dextrose 50% SYRINGE Inj (50 ml) IVP PRN (13:16)
[2017-03-31] MEDS ORDERED: Sodium Chloride 0.9% 500 ML IV ONE ×2 (13:49→19:59)
[2017-03-31 13:54] LABS: CALCIUM 8.2 mg/dL (8.4-10.2)
[2017-03-31] MEDS ORDERED: Enoxaparin 100 mg Syringe SC SCH (18:00)
[2017-03-31] MEDS ORDERED: Influenza Vaccine 18yr & older 0.5 ML/45 MCG SYR IM ONE (20:31)
[2017-04-01] MEDS ORDERED: DiphenhydrAMINE 50 mg/ml Inj IVP ONE (04:26)
[2017-04-01] MEDS: Piperacillin/Tazobact 3.375 GM in Sodium Chloride 0.9% 100 ML IVPB SCH ×2 (05:05→12:15)
[2017-04-01 05:32] LABS: HEMOGLOBIN 11.3 g/dL (12.0-16.0); MEAN CELL VOLUME 82.7 fl (81.0-99.0); MEAN CORPUSCULAR HEMOGLOBIN 25.7 pg (27.0-31.0); RBC 4.39 Mil/uL (3.80-5.20); RED CELL DISTRIBUTION WIDTH 16.9 % (11.5-14.5); WHITE BLOOD COUNT 8.7 K/uL (4.8-10.8)
[2017-04-01] MEDS: Levothyroxine 25 MCG TAB PO SCH (05:38)
[2017-04-01] MEDS ORDERED: Enoxaparin 100 mg Syringe SC SCH (06:00)
[2017-04-01 06:17] LABS: CALCIUM 7.4 mg/dL (8.4-10.2)
[2017-04-01] MEDS: Insulin Lispro (humaLOG) 100 Units/ml Inj SC SCH ×4 (06:36→21:28)
--- NOTE | 2017-04-01 07:40 | CARD ---
APPROVED REPORT EKG Measurement Heart [id number] <Conclusion> Normal sinus rhythm Left axis deviation Right bundle branch block Minimal voltage criteria for LVH, may be normal variant Inferior infarct, age undetermined T wave abnormality, consider lateral ischemia Abnormal ECG
--- NOTE | 2017-04-01 09:00 | CP.PCM.CON ---
History of Present Illness - History of Present Illness History of Present Illness: This 81 year old female was admitted through the emergency room because of shortness of breath which started abruptly at home. She does suffer from dementia and the medical record was used to obtain historical data. She was recently hospitalized here for UTI with sepsis and discharged only a few days prior. At that time a chest CT showed right upper lobe densities felt to possibly represent mucoid impacted airways and small bilateral pleural effusions. At this time there has been a CTA of the chest suggesting chronic pulmonary emboli in the right main, upper and lower pulmonary arteries and persistent RUL densities again described as possible impacted airways, as well as bilateral pleural effusions with compressive atelectasis. She was seen about 8 months ago with a left pleural effusion, and thoracentesis was performed with return of exudative fluid and pneumonia seen after tap. She had been placed on antibiotic therapy at the time. Past Patient History - Past Medical History & Family History Past Medical History?: Yes - Past Social History Smoking Status: Never Smoked - CARDIAC Hx Atrial Fibrillation: No Hx Cardia Arrhythmia: No Hx Congestive Heart Failure: No Hx Hypercholesterolemia: Yes (NOT ON ANY MEDS) Hx Hypertension: Yes (NOT ON ANY MEDS) Hx Mitral Valve Prolapse: No Hx Pacemaker: No Hx Peripheral Edema: No - PULMONARY Hx Chronic Obstructive Pulmonary Disease (COPD): Yes Hx Pneumonia: Yes - NEUROLOGICAL Hx Dementia: Yes Hx Seizures: Yes - HEENT Hx HEENT Problems: Yes - RENAL Hx Chronic Kidney Disease: Yes - ENDOCRINE/METABOLIC Hx Hypothyroidism: Yes - HEMATOLOGICAL/ONCOLOGICAL Hx Human Immunodeficiency Virus (HIV): No - INTEGUMENTARY Hx Dermatological Problems: No - MUSCULOSKELETAL/RHEUMATOLOGICAL Hx Arthritis: Yes (BOTH KNEES) - GASTROINTESTINAL Hx Gastrointestinal Disorders: No - GENITOURINARY/GYNECOLOGICAL Hx Genitourinary Disorders: No - PSYCHIATRIC Hx Anxiety: Yes Hx Depression: Yes - SURGICAL HISTORY Hx Cholecystectomy: Yes - ANESTHESIA Hx Anesthesia: Yes Hx Anesthesia Reactions: No Hx Malignant Hyperthermia: No Meds Allergies/Adverse Reactions: Allergies Allergy/AdvReac Type Severity Reaction Status Date / Time ambien AdvReac Severe HEADACHE Uncoded 03/20/17 16:47 - Medications Medications: Current Medications Acetaminophen (Tylenol 325mg Tab) 650 mg PO Q6H PRN PRN Reason: Pain, Mild (1-3) Last Admin: 03/31/17 08:14 Dose: 650 mg Acetaminophen (Tylenol 325mg Tab) 650 mg PO Q6H PRN PRN Reason: Fever >100.4 F Albuterol/Ipratropium (Duoneb 3 Mg/0.5 Mg (3 Ml) Ud) 3 ml INH RQ4 PRN PRN Reason: Shortness of Breath Last Admin: 03/31/17 19:05 Dose: 3 ml Aspirin (Aspirin) 325 mg PO DAILY [facility] Last Admin: 03/31/17 08:18 Dose: 325 mg Atorvastatin Calcium (Lipitor) 40 mg PO DAILY [facility] Last Admin: 03/31/17 08:18 Dose: 40 mg Dextrose (Dextrose 50% Inj) 0 ml IVP STAT PRN; Protocol PRN Reason: Hypoglycemia Protocol Enoxaparin Sodium (Lovenox) 90 mg SC Q12@0600,1800 [facility] PRN Reason: Protocol Glucagon (Glucagen Diagnostic Kit) 0 mg IM STAT PRN; Protocol PRN Reason: Hypoglycemia Protocol Guaifenesin/Dextromethorphan (Robitussin Dm) 5 ml PO Q8H PRN PRN Reason: Cough Vancomycin HCl 1 gm/ Sodium (Chloride) 250 mls @ 166.667 mls/hr IVPB Q12 [facility] PRN Reason: Protocol Last Admin: 03/31/17 21:04 Dose: 166.667 mls/hr Piperacillin Sod/Tazobactam (Sod 3.375 gm/ Sodium Chloride) 100 mls @ 100 mls/ hr IVPB 0000,0600,1200,1800 [facility] PRN Reason: Protocol Last Admin: 04/01/17 05:05 Dose: 100 mls/hr Insulin Human Lispro (Humalog) 0 units SC ACHS [facility] PRN Reason: Protocol Last Admin: 04/01/17 06:36 Dose: Not Given Levothyroxine Sodium (Synthroid) 25 mcg PO DAILY@0630 [facility] Last Admin: 04/01/17 05:38 Dose: 25 mcg Pantoprazole Sodium (Protonix Ec Tab) 40 mg PO DAILY [facility] Last Admin: 03/31/17 08:17 Dose: 40 mg Paroxetine HCl (Paxil) 30 mg PO DAILY [facility] Last Admin: 03/31/17 08:17 Dose: 30 mg Results - Vital Signs Recent Vital Signs: Last Vital Signs Temp 99.5 F 04/01/17 08:00 Pulse 97 H 04/01/17 08:00 Resp 37 H 04/01/17 08:00 BP 119/54 L 04/01/17 08:00 Pulse Ox 98 04/01/17 08:00 - Labs Result Diagrams: 04/01/17 05:00 04/01/17 05:00 Labs: Laboratory Results - last 24 hr 03/31/17 03/31/17 03/31/17 07:30 07:46 08:00 WBC 16.0 H RBC 4.75 Hgb 12.1 Hct 39.6 MCV 83.5 MCH 25.5 L MCHC 30.6 L RDW 16.9 H Plt Count 305 MPV 8.3 Neut % (Auto) 76.8 H Lymph % (Auto) 14.2 L [place] % (Auto) 7.7 Eos % (Auto) 0.8 Baso % (Auto) 0.5 Neut # 12.3 H Lymph # 2.3 [place] # 1.2 H Eos # 0.1 Baso # 0.1 Sodium 135 Potassium 4.5 Chloride 100 Carbon Dioxide 18 L Anion Gap 22 H BUN 17 Creatinine 1.1 Est GFR ( Amer) 57 Est GFR (Non-Af Amer) 47 POC Glucose (mg/dL) 95 Random Glucose 91 Calcium 8.2 L Troponin I 03/31/17 03/31/17 03/31/17 11:18 12:35 16:46 WBC RBC Hgb Hct MCV MCH MCHC RDW Plt Count MPV Neut % (Auto) Lymph % (Auto) [place] % (Auto) Eos % (Auto) Baso % (Auto) Neut # Lymph # [place] # Eos # Baso # Sodium Potassium Chloride Carbon Dioxide Anion Gap BUN Creatinine Est GFR ( Amer) Est GFR (Non-Af Amer) POC Glucose (mg/dL) 94 101 Random Glucose Calcium Troponin I 0.5100 H* 03/31/17 04/01/17 04/01/17 21:28 05:00 05:00 WBC 8.7 RBC 4.39 Hgb 11.3 L Hct 36.3 MCV 82.7 MCH 25.7 L MCHC 31.0 L RDW 16.9 H Plt Count 271 MPV Neut % (Auto) Lymph % (Auto) [place] % (Auto) Eos % (Auto) Baso % (Auto) Neut # Lymph # [place] # Eos # Baso # Sodium 137 Potassium 3.6 Chloride 98 Carbon Dioxide 30 Anion Gap 13 BUN 19 H Creatinine 1.2 Est GFR ( Amer) 52 Est GFR (Non-Af Amer) 43 POC Glucose (mg/dL) 97 Random Glucose 84 Calcium 7.4 L Troponin I Assessment & Plan (1) Pulmonary infiltrate present on computed tomography Status: Chronic Priority: High Comment: Suggested to represent mucoid impaction of the airways. Presently represents high risk for flexible bronchoscopy. Need to treat conservatively with chest percussion and empiric antibiotics to cover for potential nosocomial pneumonia. Cannot rule out the posibility of neoplastic disease, although an unusual presentation. (2) Pulmonary embolism on right Status: Chronic Priority: High Comment: Agree with continued anticoagulation. - Date & Time Date: 04/01/17 Time: 09:19
[2017-04-01] MEDS: Pantoprazole 40 mg EC Tab PO SCH (09:14)
[2017-04-01] MEDS ORDERED: Sodium Chloride 0.9% 500 ML IV SCH ×2 (09:45→15:45)
--- NOTE | 2017-04-01 09:54 | CP.PCM.PN ---
Subjective - Date & Time of Evaluation Date of Evaluation: 04/01/17 Time of Evaluation: 09:00 - Subjective Subjective: Appears a little better today AM following IV fluids given yesterday Pt has had multiple temp readings >101 degrees, leucocytosis and Syst BP readings at or below 100 mm Hg HR 90 BPM (following IV fluids) BP 120/70 mm Hg (following IV fluids) Mentation better today Bilat coarse crepitations+ Heart sounds distant EKG noted Suspect elevated troponin levels due to sepsis Pt to have an echocardiogram today. Have given addl IV fluids today (Oral intake scanty) Objective - Vital Signs/Intake and Output Vital Signs (last 24 hours): Temp Pulse Resp BP Pulse Ox 99.5 F 97 H 37 H 119/54 L 98 04/01/17 08:00 04/01/17 08:00 04/01/17 08:00 04/01/17 08:00 04/01/17 08:00 Intake and Output: 04/01/17 04/01/17 06:59 18:59 Intake Total 1150 450 Balance 1150 450 - Medications Medications: Current Medications Acetaminophen (Tylenol 325mg Tab) 650 mg PO Q6H PRN PRN Reason: Pain, Mild (1-3) Last Admin: 03/31/17 08:14 Dose: 650 mg Acetaminophen (Tylenol 325mg Tab) 650 mg PO Q6H PRN PRN Reason: Fever >100.4 F Albuterol/Ipratropium (Duoneb 3 Mg/0.5 Mg (3 Ml) Ud) 3 ml INH RQ4 PRN PRN Reason: Shortness of Breath Last Admin: 03/31/17 19:05 Dose: 3 ml Aspirin (Aspirin) 325 mg PO DAILY [facility] Last Admin: 04/01/17 09:15 Dose: 325 mg Atorvastatin Calcium (Lipitor) 40 mg PO DAILY [facility] Last Admin: 04/01/17 09:13 Dose: 40 mg Dextrose (Dextrose 50% Inj) 0 ml IVP STAT PRN; Protocol PRN Reason: Hypoglycemia Protocol Enoxaparin Sodium (Lovenox) 90 mg SC Q12@0600,1800 [facility] PRN Reason: Protocol Glucagon (Glucagen Diagnostic Kit) 0 mg IM STAT PRN; Protocol PRN Reason: Hypoglycemia Protocol Guaifenesin/Dextromethorphan (Robitussin Dm) 5 ml PO Q8H PRN PRN Reason: Cough Vancomycin HCl 1 gm/ Sodium (Chloride) 250 mls @ 166.667 mls/hr IVPB Q12 [facility] PRN Reason: Protocol Last Admin: 04/01/17 09:15 Dose: 166.667 mls/hr Piperacillin Sod/Tazobactam (Sod 3.375 gm/ Sodium Chloride) 100 mls @ 100 mls/ hr IVPB 0000,0600,1200,1800 [facility] PRN Reason: Protocol Last Admin: 04/01/17 05:05 Dose: 100 mls/hr Sodium Chloride (Sodium Chloride 0.9%) 500 mls @ 50 mls/hr IV .Q10H [facility] Insulin Human Lispro (Humalog) 0 units SC ACHS [facility] PRN Reason: Protocol Last Admin: 04/01/17 06:36 Dose: Not Given Levothyroxine Sodium (Synthroid) 25 mcg PO DAILY@0630 [facility] Last Admin: 04/01/17 05:38 Dose: 25 mcg Pantoprazole Sodium (Protonix Ec Tab) 40 mg PO DAILY [facility] Last Admin: 04/01/17 09:14 Dose: 40 mg Paroxetine HCl (Paxil) 30 mg PO DAILY [facility] Last Admin: 04/01/17 09:14 Dose: 30 mg - Labs Labs: 04/01/17 05:00 04/01/17 05:00 PT 13.3 Seconds (9.8-13.1) H 03/30/17 21:58 INR 1.2 (0.9-1.2) 03/30/17 21:58 APTT 32.0 Seconds (25.6-37.1) 03/30/17 21:58
--- NOTE | 2017-04-01 10:55 | CP.PCM.PN ---
<Jesus Iniguez - Last Filed: 04/01/17 15:02> Subjective - Date & Time of Evaluation Date of Evaluation: 04/01/17 Time of Evaluation: 07:45 - Subjective Subjective: 81 y/o F evaluated and examined by bedside. Pt was found awake and responsive. No fever or acute events overnight reported. Pt stated in iranian, feeling bad and not able to sleep well. Pt tolerating PO pureed diet. Objective - Vital Signs/Intake and Output Vital Signs (last 24 hours): Temp Pulse Resp BP Pulse Ox 99.5 F 99 H 34 H 109/52 L 99 04/01/17 08:00 04/01/17 10:00 04/01/17 10:00 04/01/17 10:00 04/01/17 10:00 Intake and Output: 04/01/17 04/01/17 06:59 18:59 Intake Total 1150 700 Balance 1150 700 - Medications Medications: Current Medications Acetaminophen (Tylenol 325mg Tab) 650 mg PO Q6H PRN PRN Reason: Pain, Mild (1-3) Last Admin: 03/31/17 08:14 Dose: 650 mg Acetaminophen (Tylenol 325mg Tab) 650 mg PO Q6H PRN PRN Reason: Fever >100.4 F Albuterol/Ipratropium (Duoneb 3 Mg/0.5 Mg (3 Ml) Ud) 3 ml INH RQ4 PRN PRN Reason: Shortness of Breath Last Admin: 03/31/17 19:05 Dose: 3 ml Aspirin (Aspirin) 325 mg PO DAILY [facility] Last Admin: 04/01/17 09:15 Dose: 325 mg Atorvastatin Calcium (Lipitor) 40 mg PO DAILY [facility] Last Admin: 04/01/17 09:13 Dose: 40 mg Dextrose (Dextrose 50% Inj) 0 ml IVP STAT PRN; Protocol PRN Reason: Hypoglycemia Protocol Enoxaparin Sodium (Lovenox) 90 mg SC Q12@0600,1800 [facility] PRN Reason: Protocol Glucagon (Glucagen Diagnostic Kit) 0 mg IM STAT PRN; Protocol PRN Reason: Hypoglycemia Protocol Guaifenesin/Dextromethorphan (Robitussin Dm) 5 ml PO Q8H PRN PRN Reason: Cough Vancomycin HCl 1 gm/ Sodium (Chloride) 250 mls @ 166.667 mls/hr IVPB Q12 [facility] PRN Reason: Protocol Last Admin: 04/01/17 09:15 Dose: 166.667 mls/hr Piperacillin Sod/Tazobactam (Sod 3.375 gm/ Sodium Chloride) 100 mls @ 100 mls/ hr IVPB 0000,0600,1200,1800 [facility] PRN Reason: Protocol Last Admin: 04/01/17 05:05 Dose: 100 mls/hr Sodium Chloride (Sodium Chloride 0.9%) 500 mls @ 50 mls/hr IV .Q10H [facility] Last Admin: 04/01/17 10:29 Dose: 50 mls/hr Insulin Human Lispro (Humalog) 0 units SC ACHS [facility] PRN Reason: Protocol Last Admin: 04/01/17 06:36 Dose: Not Given Levothyroxine Sodium (Synthroid) 25 mcg PO DAILY@0630 [facility] Last Admin: 04/01/17 05:38 Dose: 25 mcg Pantoprazole Sodium (Protonix Ec Tab) 40 mg PO DAILY [facility] Last Admin: 04/01/17 09:14 Dose: 40 mg Paroxetine HCl (Paxil) 30 mg PO DAILY [facility] Last Admin: 04/01/17 09:14 Dose: 30 mg - Labs Labs: 04/01/17 05:00 04/01/17 05:00 PT 13.3 Seconds (9.8-13.1) H 03/30/17 21:58 INR 1.2 (0.9-1.2) 03/30/17 21:58 APTT 32.0 Seconds (25.6-37.1) 03/30/17 21:58 - Constitutional Appears: No Acute Distress - Head Exam Head Exam: ATRAUMATIC, NORMAL INSPECTION - Eye Exam Eye Exam: EOMI, Normal appearance - ENT Exam ENT Exam: Mucous Membranes Dry - Neck Exam Neck Exam: Full ROM. absent: Meningismus - Respiratory Exam Additional comments: Poor air entry bilaterally. Presence of crackles, wheezing and ronchi b/l, more intense on R lung lower reyez. - Cardiovascular Exam Cardiovascular Exam: +S1, +S2 - GI/Abdominal Exam GI & Abdominal Exam: Soft, Normal Bowel Sounds. absent: Tenderness Assessment and Plan - Assessment and Plan (Free Text) Assessment: 81 y/o F with PMHx of Dementia, NIDDM, Hypercholesterolemia, Pleural effusions, COPD, HTN, recent discharged from hospital due to UTI, admitted for evaluation of pneumonia and suspected sepsis. Plan: 1.Pneumonia, HAP vs Aspiration Pneumonia - Had recent hospitalization for Sepsis due to UTI. - On previous admission, CXR on 03/20/17 showed a new round opacity right upper madelin-thorax common non-specific. CT of Chest on 03/22/17: probable mucoid impaction in RUL bronchi. Recommend 3-months f/u. - During this admission: CXR 03/31/17 showed rounded masslike densities RUL, small right sided effusion with right basilar atelectasis and/or R sided effusion with R basilar atelectasis and/or infiltrate. - Chest CT with constrast on 03/31/17 showed chronic PE in R main, upper and lower lobe pulmonary arteries. B/L pleural effusions with overlying consolidation secondary to compressive atelectasis of infiltrate. RUL mucoid impaction. New RUL opacity secondary to atelectasis or infiltrate. - Lactate 1.4-WNL on 03/30/17, yesterday. - C/w Vancomycin and Zosyn. - c/w PO pureed diet with liquids. - Echocardiogram performed, f/u results. - Pulmonology, Dr Kasper, on board whr recommends conservative management at this moment. High risk for flexible bronchoscopy - CXR ordered for tomorrow. F/U results. - Vancomycin through ordered to be drawn at 20:30 - ID consult placed for Dr Guzmán, f/u recommendations. - Pt to transfer from ICU to Telemetry. 2. Sepsis - SIRS( fever, leukocytosis, tachycardia) + RLL infiltrate - U/A on 03/31/17 showed leukocyte esterase and neg nitrate. - C/w Vancomycin and Zosyn. - Vancomycin through ordered to be drawn at 20:30 - Pt to transfer from ICU to Telemetry. 3. Elevated troponin/CHF Exacerbation -Pro BMP 92825 -1st Troponin 0.766-elevated, 2nd Troponin 0.478-elevated. -EKG HR: 128, sinus tachy, LVH, old ID infarction, no acute changes compared last EKG -Echocardiogram performed, f/u results. -[employer], Dr Aziza Gaspar, on board, and ordered IV fluids. Suspect elevated troponins are due to sepsis. 4. Chronic Pulmonary Embolism -D-dimer 1247-elevated -PE vs D-dimer elevation due to sepsis -High risk for DVT/PE. pt bed bound -Chest CT with contrast on 03/31/17 showed chronic PE in R main, upper and lower lobe pulmonary arteries. B/L pleural effusions with overlying consolidation secondary to compressive atelectasis of infiltrate. RUL mucoid impaction. New RUL opacity secondary to atelectasis or infiltrate. -C/w Enoxaparin 100mg Q12H -Considering home therapy with Xarelto 15mg PO Q12H for the first 21 days and then 20mg daily for 6 months. 5. DM -chronic -not home meds -SSI -Hypoglycemia protocol 6. Hx/o Hypothyroidism -c/w home medications -TSH 0.9 03/21/18 -Levothyroxine 25 mcg daily 7. Hx/o COPD -Duoneb PRN q 4h 8. CKD 3A GFR: 53 Bun/Cr 16/1.0 9. Prophylaxis -Enoxaparin 100mg Q12H -Diet Pureed and liquid recommended pureed diet and liquids. <Eddie Holm - Last Filed: 04/03/17 07:00> Objective - Vital Signs/Intake and Output Vital Signs (last 24 hours): Temp Pulse Resp BP Pulse Ox 97.2 F L 110 H 30 H 166/76 H 92 L 04/03/17 04:00 04/03/17 05:00 04/03/17 05:00 04/03/17 05:00 04/03/17 05:00 Intake and Output: 04/03/17 04/03/17 06:59 18:59 Intake Total 200 Balance 200 - Medications Medications: Current Medications Acetaminophen (Tylenol 325mg Tab) 650 mg PO Q6H PRN PRN Reason: Pain, Mild (1-3) Last Admin: 03/31/17 08:14 Dose: 650 mg Acetaminophen (Tylenol 325mg Tab) 650 mg PO Q6H PRN PRN Reason: Fever >100.4 F Albuterol/Ipratropium (Duoneb 3 Mg/0.5 Mg (3 Ml) Ud) 3 ml INH RQ4 PRN PRN Reason: Shortness of Breath Last Admin: 03/31/17 19:05 Dose: 3 ml Aspirin (Aspirin) 325 mg PO DAILY [facility] Last Admin: 04/02/17 08:48 Dose: 325 mg Atorvastatin Calcium (Lipitor) 40 mg PO DAILY [facility] Last Admin: 04/02/17 08:45 Dose: 40 mg Dextrose (Dextrose 50% Inj) 0 ml IVP STAT PRN; Protocol PRN Reason: Hypoglycemia Protocol Enoxaparin Sodium (Lovenox) 90 mg SC Q12@0600,1800 [facility] PRN Reason: Protocol Last Admin: 04/03/17 05:16 Dose: 90 mg Glucagon (Glucagen Diagnostic Kit) 0 mg IM STAT PRN; Protocol PRN Reason: Hypoglycemia Protocol Guaifenesin/Dextromethorphan (Robitussin Dm) 5 ml PO Q8H PRN PRN Reason: Cough Last Admin: 04/01/17 20:22 Dose: 5 ml Clindamycin Phosphate (Cleocin In Normal Saline) 600 mg in 50 mls @ 50 mls/hr IVPB Q8 [facility] PRN Reason: Protocol Last Admin: 04/03/17 03:30 Dose: 50 mls/hr Piperacillin Sod/Tazobactam (Sod 2.25 gm/ Sodium Chloride) 50 mls @ 50 mls/hr IVPB Q6 [facility] PRN Reason: Protocol Last Admin: 04/03/17 03:31 Dose: 50 mls/hr Insulin Human Lispro (Humalog) 0 units SC ACHS [facility] PRN Reason: Protocol Last Admin: 04/03/17 06:59 Dose: Not Given Levothyroxine Sodium (Synthroid) 25 mcg PO DAILY@0630 [facility] Last Admin: 04/03/17 05:29 Dose: 25 mcg Pantoprazole Sodium (Protonix Ec Tab) 40 mg PO DAILY [facility] Last Admin: 04/02/17 08:46 Dose: 40 mg Paroxetine HCl (Paxil) 30 mg PO DAILY [facility] Last Admin: 04/02/17 08:46 Dose: 30 mg - Labs Labs: 04/03/17 04:55 04/03/17 04:55 PT 13.3 Seconds (9.8-13.1) H 03/30/17 21:58 INR 1.2 (0.9-1.2) 03/30/17 21:58 APTT 32.0 Seconds (25.6-37.1) 03/30/17 21:58 Attending/Attestation - Attestation I have personally seen and examined this patient.: Yes I have fully participated in the care of the patient.: Yes I have reviewed all pertinent clinical information, including history, physical exam and plan: Yes
--- NOTE | 2017-04-01 12:55 | CARD ---
APPROVED REPORT EKG Measurement Heart [id number] <Conclusion> Sinus tachycardia Left axis deviation Left ventricular hypertrophy with QRS widening and repolarization abnormality Inferior infarct, age undetermined Abnormal ECG
[2017-04-01] MEDS: Enoxaparin 100 mg Syringe SC SCH (17:23)
[2017-04-01] MEDS ORDERED: Piperacillin/Tazobact 3.375 GM in Sodium Chloride 0.9% 50 ML IVPB SCH (18:00)
[2017-04-01] MEDS: Clindamycin 600mg/50ml NS 600 MG/50 ML BAG IVPB SCH (18:44)
[2017-04-02] MEDS: Clindamycin 600mg/50ml NS 600 MG/50 ML BAG IVPB SCH ×3 (00:40→16:16)
[2017-04-02] MEDS: Levothyroxine 25 MCG TAB PO SCH (05:35)
[2017-04-02] MEDS: Enoxaparin 100 mg Syringe SC SCH ×2 (05:36→17:10)
[2017-04-02 05:37] LABS: HEMOGLOBIN 10.4 g/dL (12.0-16.0); MEAN CORPUSCULAR HEMOGLOBIN 25.7 pg (27.0-31.0); RBC 4.07 Mil/uL (3.80-5.20); WHITE BLOOD COUNT 8.1 K/uL (4.8-10.8)
[2017-04-02 06:03] LABS: ALB/GLOB RATIO 0.8 (1.0-2.1); ALBUMIN 2.4 g/dL (3.5-5.0); CALCIUM 7.5 mg/dL (8.4-10.2)
[2017-04-02] MEDS: Insulin Lispro (humaLOG) 100 Units/ml Inj SC SCH ×4 (06:40→21:51)
[2017-04-02] MEDS ORDERED: Potassium Chloride 20 mEq ER Tab PO ONE (07:50)
--- NOTE | 2017-04-02 07:50 | CARD ---
APPROVED REPORT EXAM: Two-dimensional and M-mode echocardiogram with Doppler and color Doppler. Other Information Quality : GoodRhythm : NSR INDICATION Congestive Heart Failure +Troponin 2D DIMENSIONS IVSd1.86 (0.7-1.1cm)LVDd2.62 (3.9-5.9cm) LVOT Diameter2.22 (1.8-2.4cm)PWd1.43 (0.7-1.1cm) IVSs1.92 (0.8-1.2cm)LVDs2.34 (2.5-4.0cm) FS (%) 10.7 %PWs1.69 (0.8-1.2cm) M-Mode DIMENSIONS Left Atrium (MM)3.25 (2.5-4.0cm)IVSd1.56 (0.7-1.1cm) Aortic Root2.84 (2.2-3.7cm)LVDd3.56 (4.0-5.6cm) Aortic Cusp Exc.2.03 (1.5-2.0cm)PWd1.53 (0.7-1.1cm) IVSs2.03 cmFS (%) 44 % LVDs2.00 (2.0-3.8cm)PWs1.84 cm Mitral Valve MV E Vcqdgonz16.3cm/sMV DECEL [id number] A Ddfrsabs522.7cm/s MV UQQ25bmS/A ratio0.6MVA (PHT)4.26cm2 TDI E/Lateral E'0.0E/Medial E'0.0 Tricuspid Valve TR Peak [id number]/sRAP [id number] Peak Gr.25mmHg [id number] LEFT VENTRICLE The left ventricle is normal size. There is mild to moderate concentric left ventricular hypertrophy. Left ventricle systolic function is normal. The Ejection Fraction is 65-70%. The endocardial surface was poorly identified Over all LV wall motion appeared normal Transmitral Doppler flow pattern is Grade I-abnormal relaxation pattern. RIGHT VENTRICLE The right ventricle is mildly dilated. There is normal right ventricular wall thickness. The right ventricular systolic function is normal. ATRIA The left atrium size is normal. The right atrium size is normal. AORTIC VALVE The aortic valve is normal in structure. No aortic regurgitation is present. There is no aortic valvular stenosis. MITRAL VALVE Mitral annular calcification is mild. There is no evidence of mitral valve prolapse. There is no mitral valve stenosis. There is no mitral valve regurgitation noted. TRICUSPID VALVE The tricuspid valve is normal in structure. There is mild tricuspid regurgitation. Right ventricular systolic pressure is estimated at 36 mmHg. There is mild pulmonary hypertension. PULMONIC VALVE The pulmonary valve is normal in structure. There is no pulmonic valvular regurgitation. GREAT VESSELS The aortic root is normal in size. Due to poor image quality, the IVC could not be assessed. PERICARDIAL EFFUSION The pericardium appears normal. <Conclusion> The echo window was poor and the quality of images was suboptimal. The left ventricle is normal size. There is mild to moderate concentric left ventricular hypertrophy. Over all LV wall motion appeared normal Left ventricle systolic function is normal. The Ejection Fraction is 65-70%. Transmitral Doppler flow pattern is Grade I-abnormal relaxation pattern.
--- NOTE | 2017-04-02 08:38 | CARD ---
APPROVED REPORT EKG Measurement Heart [id number] <Conclusion> Sinus tachycardia Left axis deviation RSR' or QR pattern in V1 suggests right ventricular conduction delay Left ventricular hypertrophy with QRS widening and repolarization abnormality Inferior infarct, age undetermined Anterolateral infarct, age undetermined Abnormal ECG
[2017-04-02] MEDS: Pantoprazole 40 mg EC Tab PO SCH (08:46)
--- NOTE | 2017-04-02 08:47 | PN ---
DATE: 04/01/2017 LOCATION: The patient in ICU, bed 434. Time spent, 40 minutes. The patient is seen and evaluated at the bedside. Past medical, surgical and social history reviewed. SUBJECTIVE: An 81-year-old female with dementia, non-insulin dependent diabetes mellitus type 2, hyperlipidemia, chronic bilateral pleural effusion, chronic obstructive pulmonary disease, hypertension, status post recent admission to [facility] for sepsis secondary to urinary tract infection, readmitted with complaining of increasing shortness of breath associated with dry cough. On admission, the patient was noted to be febrile, currently defervesced, noted to be hypotensive but blood pressure improved on IV hydration, currently remains wakeful, able to follow simple commands but slow to respond. No distress noted. Denies shortness of breath, chest pain, or palpitation. No abdominal discomfort or diarrhea. No dysuria. PHYSICAL EXAMINATION: VITAL SIGNS: Temperature T-max 101.5, heart rate 109, blood pressure 129/54, respiratory rate 32 thoracoabdominal, saturating 98%, oxygen 3 liters nasal cannula. Intake 1300, output 400. Positive balance 2700. Weight 190 pounds. HEAD, EYES, EARS, NOSE AND THROAT: Pupils are reactive. Conjunctivae pale. Sclerae white. NECK: Supple. CHEST: Decreased breath sounds, bibasilar crackles. HEART: Rhythm regular. S1, S2 rapid. ABDOMEN: Bowel sounds are present. Soft. EXTREMITIES: With -4 pedal edema. NEUROLOGIC: Alert, awake, slow to respond. CURRENT MEDICATIONS: Tylenol 650 q. 6 p.r.n., albuterol/Atrovent inhalation 3 mL via nebulizer q. 4 hours, aspirin 325 mg p.o. daily, Lipitor 40 mg daily, Lovenox 90 mg subcutaneous q. 12 hours, guaifenesin with dextromethorphan 5 mL p.o. q. 8 p.r.n., insulin Lispro a.c. and at bedtime based on sliding scale, Synthroid 25 mcg p.o. daily, Protonix 40 p.o. daily, Paxil 30 mg p.o. daily, Zosyn 3.375 gm IV q. 8 hours, sodium chloride 500 mL at 50 mL/hour, vancomycin 1 gm IV q. 12 hours. LABORATORY DATA: WBC 8.7, hemoglobin 11.3, hematocrit 36.3, platelet count 271. PT 13.2, INR 1.2, PTT 32.7. D-dimer 1247. ABG, pH of 7.45, pCO2 of 44, pO2 of 86, oxygen saturation 100% on FiO2 of 40%. SMA-7: Sodium 137, potassium 3.6, chloride 98, CO2 of 30, blood urea nitrogen 19, creatinine 1.2, calcium 7.4, troponin 0.510. Urinalysis, wbcs 6, squamous epithelia cells 1, leucocyte esterase trace. Influenza A and B negative. Microbiology, MRSA nasal smear negative. Urine culture, no growth. Blood culture, no growth. Electrocardiogram, normal sinus rhythm, left axis deviation, right bundle-branch block, minimal voltage criteria for LVH, inferior infarct, T-wave normality, consider lateral ischemia. CT chest, chronic pulmonary embolism in the right main, upper and lower lobe pulmonary arteries, bilateral pleural effusion with overlying consolidation secondary to compressive atelectasis or infiltrates, right upper lobe mucoid impaction, new right upper lobe opacity secondary to atelectasis or infiltrate. IMPRESSION: 1. Infectious Disease: Healthcare-associated pneumonia, currently on vancomycin and Zosyn. 2. Pulmonary: Bilateral pleural effusion with atelectasis, rounded opacity on the right upper lobe mucoid impaction with new right upper lobe opacity. 3. Cardiac: Hypotension related to hypovolemia and sepsis, improved with intravenous hydration. 4. Neurologic: History of mild dementia, superimposed septic, toxic encephalopathy, stable. 6. Endocrine: History of hypothyroidism on levothyroxine 25 mcg daily. Diabetes mellitus type 2. Maintain sugar less than 180 mg. 7. Gastrointestinal: No acute issues noted. 8. Renal: Mild prerenal azotemia, stable. No electrolyte abnormalities noted. 9. Continue deep venous thrombosis and gastrointestinal prophylaxis. Ramon Cam MD
[2017-04-02] MEDS: Potassium CL 10 MEQ/50 ML 50 ML IVPB SCH ×3 (08:48→11:02)
--- NOTE | 2017-04-02 08:48 | CON ---
DATE: HISTORY OF PRESENT ILLNESS: The patient is an 81-year-old female who came to the emergency room because of shortness of breath which began at home. The patient had previously been in hospital and I have seen her for a UTI. As the patient still has dementia, I was only able to take a history by review of the chart. She was discharged only two days prior to the admission. At present time, she has CT scan which showed right upper lobe densities, possibly representing mucoid impacted airways. The patient again has dementia and does not really answer to any questions. PHYSICAL EXAMINATION: GENERAL: She is awake and apparently alert. HEENT: Within normal limits. NECK: Supple. EXTREMITIES: No CCE. LABORATORY DATA: WBC is going down from 13, then up at 16, and then down to 8.7 today. Platelet count is 271. She has 76 polys. Creatinine is 1.2. GFR is 43. CT scan was already reviewed as well as chest x-ray. There is no blood cultures that are positive and we are awaiting of the urine cultures. MEDICATIONS: The patient is presently on vanco and Zosyn. I have discontinued the vancomycin and we will adjust the dose of piperacillin considering the GFR. We will also add clindamycin 600 mg IV piggyback to the treatment. IMPRESSION AND PLAN: Pneumonia, possible aspiration pneumonia. We will discuss with Pulmonary for further care. Tj Guzmán MD MTDD
--- NOTE | 2017-04-02 08:51 | CP.PCM.PN ---
<Jesus Iniguez - Last Filed: 04/02/17 17:20> Subjective - Date & Time of Evaluation Date of Evaluation: 04/02/17 Time of Evaluation: 08:00 - Subjective Subjective: 81 y/o F examined and evaluated by bedside. Pt is awake and alert. Pt is able to communicate in b[place], reports feeling bad. Pt afebrile with NO acute events overnight. Objective - Vital Signs/Intake and Output Vital Signs (last 24 hours): Temp Pulse Resp BP Pulse Ox 98.2 F 99 H 21 135/60 100 04/02/17 04:00 04/02/17 06:02 04/02/17 06:02 04/02/17 06:02 04/02/17 06:02 Intake and Output: 04/02/17 04/02/17 06:59 18:59 Intake Total 250 Balance 250 - Medications Medications: Current Medications Acetaminophen (Tylenol 325mg Tab) 650 mg PO Q6H PRN PRN Reason: Pain, Mild (1-3) Last Admin: 03/31/17 08:14 Dose: 650 mg Acetaminophen (Tylenol 325mg Tab) 650 mg PO Q6H PRN PRN Reason: Fever >100.4 F Albuterol/Ipratropium (Duoneb 3 Mg/0.5 Mg (3 Ml) Ud) 3 ml INH RQ4 PRN PRN Reason: Shortness of Breath Last Admin: 03/31/17 19:05 Dose: 3 ml Aspirin (Aspirin) 325 mg PO DAILY [facility] Last Admin: 04/01/17 09:15 Dose: 325 mg Atorvastatin Calcium (Lipitor) 40 mg PO DAILY [facility] Last Admin: 04/01/17 09:13 Dose: 40 mg Dextrose (Dextrose 50% Inj) 0 ml IVP STAT PRN; Protocol PRN Reason: Hypoglycemia Protocol Enoxaparin Sodium (Lovenox) 90 mg SC Q12@0600,1800 [facility] PRN Reason: Protocol Last Admin: 04/02/17 05:36 Dose: 90 mg Glucagon (Glucagen Diagnostic Kit) 0 mg IM STAT PRN; Protocol PRN Reason: Hypoglycemia Protocol Guaifenesin/Dextromethorphan (Robitussin Dm) 5 ml PO Q8H PRN PRN Reason: Cough Last Admin: 04/01/17 20:22 Dose: 5 ml Clindamycin Phosphate (Cleocin In Normal Saline) 600 mg in 50 mls @ 50 mls/hr IVPB Q8 [facility] PRN Reason: Protocol Last Admin: 04/02/17 00:40 Dose: 50 mls/hr Piperacillin Sod/Tazobactam (Sod 2.25 gm/ Sodium Chloride) 100 mls @ 100 mls/ hr IVPB Q6 [facility] PRN Reason: Protocol Last Admin: 04/02/17 03:31 Dose: 100 mls/hr Potassium Chloride (Potassium Cl 10meq/50ml Sterile Water) 50 mls @ 50 mls/hr IVPB Q1 [facility] Stop: 04/02/17 09:59 Insulin Human Lispro (Humalog) 0 units SC ACHS [facility] PRN Reason: Protocol Last Admin: 04/02/17 06:40 Dose: Not Given Levothyroxine Sodium (Synthroid) 25 mcg PO DAILY@0630 [facility] Last Admin: 04/02/17 05:35 Dose: 25 mcg Pantoprazole Sodium (Protonix Ec Tab) 40 mg PO DAILY [facility] Last Admin: 04/01/17 09:14 Dose: 40 mg Paroxetine HCl (Paxil) 30 mg PO DAILY [facility] Last Admin: 04/01/17 09:14 Dose: 30 mg - Labs Labs: 04/02/17 05:10 04/02/17 05:10 PT 13.3 Seconds (9.8-13.1) H 03/30/17 21:58 INR 1.2 (0.9-1.2) 03/30/17 21:58 APTT 32.0 Seconds (25.6-37.1) 03/30/17 21:58 - Constitutional Appears: Well, No Acute Distress - Head Exam Head Exam: ATRAUMATIC, NORMAL INSPECTION - Eye Exam Eye Exam: EOMI, Normal appearance - ENT Exam ENT Exam: Mucous Membranes Moist - Neck Exam Neck Exam: Full ROM. absent: Meningismus - Respiratory Exam Respiratory Exam: Rales, Rhonchi, Wheezes - Cardiovascular Exam Cardiovascular Exam: REGULAR RHYTHM, +S1, +S2 - GI/Abdominal Exam GI & Abdominal Exam: Soft. absent: Guarding, Rigid, Tenderness - Extremities Exam Extremities Exam: Full ROM. absent: Pedal Edema Assessment and Plan - Assessment and Plan (Free Text) Assessment: 81 y/o F with PMHx of Dementia, NIDDM, Hypercholesterolemia, Pleural effusions, COPD, HTN, recent discharged from hospital due to UTI, admitted for evaluation of pneumonia and suspected sepsis. Plan: 1.Pneumonia, HAP vs Aspiration Pneumonia - Had recent hospitalization for Sepsis due to UTI. - On previous admission, CXR on 03/20/17 showed a new round opacity right upper madelin-thorax common non-specific. CT of Chest on 03/22/17: probable mucoid impaction in RUL bronchi. Recommend 3-months f/u. - During this admission: CXR 03/31/17 showed rounded masslike densities RUL, small right sided effusion with right basilar atelectasis and/or R sided effusion with R basilar atelectasis and/or infiltrate. - Chest CT with constrast on 03/31/17 showed chronic PE in R main, upper and lower lobe pulmonary arteries. B/L pleural effusions with overlying consolidation secondary to compressive atelectasis of infiltrate. RUL mucoid impaction. New RUL opacity secondary to atelectasis or infiltrate. - c/w PO pureed diet with liquids. - Pulmonology, Dr Kasper, on board [facility] recommends conservative management at this moment. High risk for flexible bronchoscopy - CXR ordered for tomorrow. F/U results. - Vancomycin through ordered to be drawn at 20:30 - ID consult placed for Dr Guzmán. - Pt to transfer from ICU to Telemetry. - As per ID: Vancomycin stopped, Clindamycin 600mg Q8H initiated; Zosyn now 2.25gr Q6H. - Echocardiogram was suboptimal, LV size normal, mild/moderate concentric LVH, LV wall motion appears normal, LVEF 65-70%. 2. Sepsis - SIRS( fever, leukocytosis, tachycardia) + RLL infiltrate - U/A on 03/31/17 showed leukocyte esterase and neg nitrate. - C/w Vancomycin and Zosyn. - Vancomycin through ordered to be drawn at 20:30 - Pt to transfer from ICU to Telemetry. 3. Hypokalemia - Serum K+ 3.2-low today 04/02/17 - KCl 10mEq IV, 4 bags, will be administered. 3. Elevated troponin/preserved ejection fraction-CHF Exacerbation has been ruled out. -Pro BMP 69989 -1st Troponin 0.766-elevated, 2nd Troponin 0.478-elevated. 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 Suspect elevated troponins are due to sepsis. -Echocardiogram was suboptimal, LV size normal, mild/moderate concentric LVH, LV wall motion appears normal, LVEF 65-70%. 4. Chronic Pulmonary Embolism -D-dimer 1247-elevated -PE vs D-dimer elevation due to sepsis -High risk for DVT/PE. pt bed bound -Chest CT with contrast on 03/31/17 showed chronic PE in R main, upper and lower lobe pulmonary arteries. B/L pleural effusions with overlying consolidation secondary to compressive atelectasis of infiltrate. RUL mucoid impaction. New RUL opacity secondary to atelectasis or infiltrate. -C/w Enoxaparin 100mg Q12H -Considering home therapy with Xarelto 15mg PO Q12H for the first 21 days and then 20mg daily for 6 months. 5. DM -chronic -not home meds -SSI -Hypoglycemia protocol 6. Hx/o Hypothyroidism -c/w home medications -TSH 0.9 03/21/18 -Levothyroxine 25 mcg daily 7. Hx/o COPD -Duoneb PRN q 4h 8. CKD 3A GFR: 53 Bun/Cr 16/1.0 9. Prophylaxis -Enoxaparin 90 mg Q12H -Diet Pureed and liquid recommended pureed diet and liquids. <Ta Lipscomb - Last Filed: 04/04/17 06:45> Objective - Vital Signs/Intake and Output Vital Signs (last 24 hours): Temp Pulse Resp BP Pulse Ox 98.6 F 95 H 18 133/67 96 04/03/17 23:48 04/03/17 23:48 04/03/17 23:48 04/03/17 23:48 04/03/17 23:48 Intake and Output: 04/03/17 04/04/17 18:59 06:59 Intake Total 200 Balance 200 - Medications Medications: Current Medications Acetaminophen (Tylenol 325mg Tab) 650 mg PO Q6H PRN PRN Reason: Pain, Mild (1-3) Last Admin: 03/31/17 08:14 Dose: 650 mg Acetaminophen (Tylenol 325mg Tab) 650 mg PO Q6H PRN PRN Reason: Fever >100.4 F Albuterol/Ipratropium (Duoneb 3 Mg/0.5 Mg (3 Ml) Ud) 3 ml INH RQ4 PRN PRN Reason: Shortness of Breath Last Admin: 03/31/17 19:05 Dose: 3 ml Aspirin (Aspirin) 325 mg PO DAILY [facility] Last Admin: 04/03/17 09:52 Dose: Not Given Atorvastatin Calcium (Lipitor) 40 mg PO DAILY [facility] Last Admin: 04/03/17 09:58 Dose: Not Given Dextrose (Dextrose 50% Inj) 0 ml IVP STAT PRN; Protocol PRN Reason: Hypoglycemia Protocol Enoxaparin Sodium (Lovenox) 90 mg SC Q12@0600,1800 ROCAEL PRN Reason: Protocol Last Admin: 04/04/17 06:10 Dose: 90 mg Glucagon (Glucagen Diagnostic Kit) 0 mg IM STAT PRN; Protocol PRN Reason: Hypoglycemia Protocol Guaifenesin/Dextromethorphan (Robitussin Dm) 5 ml PO Q8H PRN PRN Reason: Cough Last Admin: 04/01/17 20:22 Dose: 5 ml Clindamycin Phosphate (Cleocin In Normal Saline) 600 mg in 50 mls @ 50 mls/hr IVPB Q8 [facility] PRN Reason: Protocol Last Admin: 04/04/17 00:45 Dose: 50 mls/hr Piperacillin Sod/Tazobactam (Sod 2.25 gm/ Sodium Chloride) 50 mls @ 50 mls/hr IVPB Q6 [facility] PRN Reason: Protocol Last Admin: 04/04/17 04:11 Dose: 50 mls/hr Insulin Human Lispro (Humalog) 0 units SC ACHS [facility] PRN Reason: Protocol Last Admin: 04/04/17 06:42 Dose: Not Given Levothyroxine Sodium (Synthroid) 25 mcg PO DAILY@0630 [facility] Last Admin: 04/04/17 06:12 Dose: 25 mcg Nystatin (Nystop Topical Powder) 1 applic TOP TID [facility] Last Admin: 04/03/17 18:43 Dose: 1 applic Pantoprazole Sodium (Protonix Ec Tab) 40 mg PO DAILY [facility] Last Admin: 04/03/17 09:59 Dose: Not Given Paroxetine HCl (Paxil) 30 mg PO DAILY [facility] Last Admin: 04/03/17 09:58 Dose: Not Given - Labs Labs: 04/03/17 04:55 01/31/18 04:55 PT 13.3 Seconds (9.8-13.1) H 03/30/17 21:58 INR 1.2 (0.9-1.2) 03/30/17 21:58 APTT 32.0 Seconds (25.6-37.1) 03/30/17 21:58 Attending/Attestation - Attestation I have personally seen and examined this patient.: Yes I have fully participated in the care of the patient.: Yes I have reviewed all pertinent clinical information, including history, physical exam and plan: Yes
--- NOTE | 2017-04-02 10:45 | CP.PCM.PN ---
Subjective - Date & Time of Evaluation Date of Evaluation: 04/02/17 Time of Evaluation: 10:45 - Subjective Subjective: Clinically relatively unchanged. Remains well oxygenated on nasal canula. Afebrile, no leukocytosis, mildly hypertensive. Chest x-ray shows continued RUL infiltrate and retrocardiac density. Mental status is the same; awakens, opens eyes, does not follow commands, does not answer questions. Not in any respiratory distress. No cyanosis. Trace to 1+ dependant edema. Neck is supple and trachea is midline. No dullness to percussion of the anterior chest wall. No subcutaneous emphysema. Breath sounds are present in both lungs anteriorly, markedly diminished posteriorly non the left. Coarse rhonchi are heard in the right upper anterior chest. No wheezes or bronchial breath sounds. Heart sounds are distant. Left pleural effusion with LLL basal atelectasis. Right upper lobe infiltrates with questionable mucoid impacted airways. Considering patient's age and dementia, would continue non-invasive management. Continue empiric antibiotic therapy covering for nosocomial pneumonia. Objective - Vital Signs/Intake and Output Vital Signs (last 24 hours): Temp Pulse Resp BP Pulse Ox 99.0 F 104 H 96 H 141/63 16 L 04/02/17 08:00 04/02/17 08:00 04/02/17 08:00 04/02/17 08:00 04/02/17 08:00 Intake and Output: 04/01/17 04/02/17 23:59 11:59 Intake Total 1150 500 Balance 1150 500 - Medications Medications: Current Medications Acetaminophen (Tylenol 325mg Tab) 650 mg PO Q6H PRN PRN Reason: Pain, Mild (1-3) Last Admin: 03/31/17 08:14 Dose: 650 mg Acetaminophen (Tylenol 325mg Tab) 650 mg PO Q6H PRN PRN Reason: Fever >100.4 F Albuterol/Ipratropium (Duoneb 3 Mg/0.5 Mg (3 Ml) Ud) 3 ml INH RQ4 PRN PRN Reason: Shortness of Breath Last Admin: 03/31/17 19:05 Dose: 3 ml Aspirin (Aspirin) 325 mg PO DAILY [facility] Last Admin: 04/02/17 08:48 Dose: 325 mg Atorvastatin Calcium (Lipitor) 40 mg PO DAILY [facility] Last Admin: 04/02/17 08:45 Dose: 40 mg Dextrose (Dextrose 50% Inj) 0 ml IVP STAT PRN; Protocol PRN Reason: Hypoglycemia Protocol Enoxaparin Sodium (Lovenox) 90 mg SC Q12@0600,1800 [facility] PRN Reason: Protocol Last Admin: 04/02/17 05:36 Dose: 90 mg Glucagon (Glucagen Diagnostic Kit) 0 mg IM STAT PRN; Protocol PRN Reason: Hypoglycemia Protocol Guaifenesin/Dextromethorphan (Robitussin Dm) 5 ml PO Q8H PRN PRN Reason: Cough Last Admin: 04/01/17 20:22 Dose: 5 ml Clindamycin Phosphate (Cleocin In Normal Saline) 600 mg in 50 mls @ 50 mls/hr IVPB Q8 [facility] PRN Reason: Protocol Last Admin: 04/02/17 08:45 Dose: 50 mls/hr Piperacillin Sod/Tazobactam (Sod 2.25 gm/ Sodium Chloride) 100 mls @ 100 mls/ hr IVPB Q6 [facility] PRN Reason: Protocol Last Admin: 04/02/17 09:00 Dose: 100 mls/hr Insulin Human Lispro (Humalog) 0 units SC ACHS [facility] PRN Reason: Protocol Last Admin: 04/02/17 06:40 Dose: Not Given Levothyroxine Sodium (Synthroid) 25 mcg PO DAILY@0630 [facility] Last Admin: 04/02/17 05:35 Dose: 25 mcg Pantoprazole Sodium (Protonix Ec Tab) 40 mg PO DAILY [facility] Last Admin: 04/02/17 08:46 Dose: 40 mg Paroxetine HCl (Paxil) 30 mg PO DAILY [facility] Last Admin: 04/02/17 08:46 Dose: 30 mg - Labs Labs: 04/02/17 05:10 04/02/17 05:10 PT 13.3 Seconds (9.8-13.1) H 03/30/17 21:58 INR 1.2 (0.9-1.2) 03/30/17 21:58 APTT 32.0 Seconds (25.6-37.1) 03/30/17 21:58 Assessment and Plan (1) Pulmonary infiltrate present on computed tomography Status: Chronic (2) Pulmonary embolism on right Status: Chronic
--- NOTE | 2017-04-02 11:04 | RAD ---
PROCEDURE: CHEST RADIOGRAPH, 1 VIEW HISTORY: pneumonia COMPARISON: 03/30/2017 single-view chest. 03/31/2017 CT pulmonary angiogram. FINDINGS: LUNGS: Consolidative changes both lower lobes left greater than right. PLEURA: Bilateral pleural effusions left larger than right. CARDIOVASCULAR: Cardiomegaly. No evidence of acute, significant cardiovascular disease. OSSEOUS STRUCTURES: No significant abnormalities. VISUALIZED UPPER ABDOMEN: Normal. OTHER FINDINGS: None. IMPRESSION: Bilateral lower lobe infiltrates pleural effusions left more pronounced/ greater than right.
--- NOTE | 2017-04-02 15:50 | PN ---
DATE: 04/02/2017 CRITICAL CARE PROGRESS NOTE LOCATION: The patient in ICU, bed 434. TIME SPENT: Thirty five minutes. The patient is seen and evaluated at the bedside. Past medical, surgical and social history reviewed. A 81-year-old female with dementia, non-insulin diabetes mellitus type 2, hyperlipidemia, chronic bilateral pleural effusion, chronic obstructive pulmonary disease, hypertension, status post recent admission to [facility] for sepsis secondary to urinary tract infection, readmitted, complaining of increasing shortness of breath associated with dry cough. On admission, the patient was noted to be febrile, currently remains afebrile; hypertensive, improved on IV hydration. Remains wakeful, able to get out of bed to standing position. Denies dizziness, not steady to walk around, [id number] shortness of breath on exertion. PHYSICAL EXAMINATION VITAL SIGNS: Temperature 99, heart rate 99 to 104 and regular, blood pressure 135-141/60-63, respiratory rate 21, thoracoabdominal; saturating 100%. Intake 2000, output 400 mL, positive balance 2700 HEAD, EYES, EARS, NOSE, AND THROAT: Pupils are reactive. Conjunctivae pink. Sclerae white. NECK: short. Reduced oropharyngeal air space. CHEST: Bilateral breath sounds distant. HEART: Rhythm regular. ABDOMEN: Bowel sounds present. Obese, nontender. EXTREMITIES: With chronic venous stasis changes. DP palpable, reduced in intensity, symmetric. NEUROLOGIC EXAMINATION: Nonfocal. CURRENT MEDICATIONS: Include Tylenol 650 q. 6 p.r.n., DuoNeb 3 mL q. 4 p.r.n., aspirin 325 mg daily, Lipitor 40 mg p.o. daily, clindamycin 600 mg IV q. 8, Lovenox 90 mg subcu q. 12, Accu-Chek with regular insulin coverage, levothyroxine 25 mcg daily, Protonix EC 40 mg daily, Paxil 30 mg p.o. daily, Zosyn 2.25 g IV q. 6h. LABORATORY DATA: WBC 8.1, hemoglobin 10.4, hematocrit 33.7, platelet count 299,000 with SMA-7, sodium 138, potassium 3.2, chloride 100, CO2 31, blood urea nitrogen 15, creatinine 1.1, random glucose 79, calcium 7.5, total bilirubin 0.4. AST 27, ALT 30, alkaline phosphatase 93, total protein 5.5, albumin 2.4. Urinalysis is negative. Vancomycin trough level 24.1. Rapid influenza A and B negative. Microbiology: Nasal smear MRSA negative. Urine culture, no growth. Blood culture, no growth reported. Chest x-ray from this morning, cardiomegaly, no evidence of acute significant cardiovascular disease. No significant abnormalities; bilateral lower lobe infiltrates; pleural effusion, left more pronounced than right. IMPRESSION 1. Neuro: History of dementia; however, able to comprehend. Limited short-term memory loss. 2. Pulmonary: Suspected bilateral pneumonia. 3. Bilateral pleural effusion with atelectasis. 4. Cardiac: Hypertension, resolved. No acute arrhythmias noted. Pulmonary and GI, no acute issues. Continue diet as tolerated. Renal, BUN and creatinine within normal limits. Skin, without rash or skin breakdown. Continue current medications. OT and PT as tolerated. Increase ambulation. Pulmonary followup regarding pulmonary infiltrate/mucoid impaction of the airways. Continue Lovenox 1 mg/kg subcu q. 12 for pulmonary embolism. Ramon Cam MD < MTDD
[2017-04-02] MEDS: Piperacillin/Tazobact 2.25 GM in Sodium Chloride 0.9% 50 ML IVPB SCH ×2 (16:17→21:09)
[2017-04-03] MEDS: Clindamycin 600mg/50ml NS 600 MG/50 ML BAG IVPB SCH ×3 (03:30→17:40)
[2017-04-03] MEDS: Piperacillin/Tazobact 2.25 GM in Sodium Chloride 0.9% 50 ML IVPB SCH ×4 (03:31→22:34)
[2017-04-03] MEDS: Enoxaparin 100 mg Syringe SC SCH ×2 (05:16→18:43)
[2017-04-03] MEDS: Levothyroxine 25 MCG TAB PO SCH (05:29)
[2017-04-03 05:37] LABS: HEMOGLOBIN 10.9 g/dL (12.0-16.0); MEAN CELL VOLUME 81.6 fl (81.0-99.0); MEAN CORPUSCULAR HEMOGLOBIN 25.7 pg (27.0-31.0); MEAN CORPUSCULAR HGB CONC 31.4 g/dL (33.0-37.0); RBC 4.25 Mil/uL (3.80-5.20); RED CELL DISTRIBUTION WIDTH 16.9 % (11.5-14.5); WHITE BLOOD COUNT 8.4 K/uL (4.8-10.8)
[2017-04-03 05:55] LABS: B-TYPE NATRIURETIC PEPTIDE 4010 pg/ml (0-900)
[2017-04-03 05:56] LABS: BLOOD UREA NITROGEN 11 mg/dl (7-17); CALCIUM 8.2 mg/dL (8.4-10.2); GFR AFRICAN-AMERICAN > 60; GFR NON-AFRICAN AMERICAN 53
[2017-04-03] MEDS: Insulin Lispro (humaLOG) 100 Units/ml Inj SC SCH ×4 (06:59→21:48)
[2017-04-03] MEDS: Pantoprazole 40 mg EC Tab PO SCH (09:59)
--- NOTE | 2017-04-03 10:52 | CP.PCM.PN ---
<Jesus Iniguez - Last Filed: 04/03/17 19:44> Subjective - Date & Time of Evaluation Date of Evaluation: 04/03/17 Time of Evaluation: 08:00 - Subjective Subjective: 81 y/o F evaluated and examined by bedside. Pt is awake, alert but confused. Pt reports feeling bad. Pt afebrile and tolerating PO. Objective - Vital Signs/Intake and Output Vital Signs (last 24 hours): Temp Pulse Resp BP Pulse Ox 99.9 F H 110 H 31 H 172/85 H 95 04/03/17 08:00 04/03/17 08:00 04/03/17 08:00 04/03/17 08:00 04/03/17 08:00 Intake and Output: 04/03/17 04/03/17 06:59 18:59 Intake Total 200 Balance 200 - Medications Medications: Current Medications Acetaminophen (Tylenol 325mg Tab) 650 mg PO Q6H PRN PRN Reason: Pain, Mild (1-3) Last Admin: 03/31/17 08:14 Dose: 650 mg Acetaminophen (Tylenol 325mg Tab) 650 mg PO Q6H PRN PRN Reason: Fever >100.4 F Albuterol/Ipratropium (Duoneb 3 Mg/0.5 Mg (3 Ml) Ud) 3 ml INH RQ4 PRN PRN Reason: Shortness of Breath Last Admin: 03/31/17 19:05 Dose: 3 ml Aspirin (Aspirin) 325 mg PO DAILY [facility] Last Admin: 04/03/17 09:52 Dose: 325 mg Atorvastatin Calcium (Lipitor) 40 mg PO DAILY [facility] Last Admin: 04/03/17 09:58 Dose: 40 mg Dextrose (Dextrose 50% Inj) 0 ml IVP STAT PRN; Protocol PRN Reason: Hypoglycemia Protocol Enoxaparin Sodium (Lovenox) 90 mg SC Q12@0600,1800 [facility] PRN Reason: Protocol Last Admin: 04/03/17 05:16 Dose: 90 mg Glucagon (Glucagen Diagnostic Kit) 0 mg IM STAT PRN; Protocol PRN Reason: Hypoglycemia Protocol Guaifenesin/Dextromethorphan (Robitussin Dm) 5 ml PO Q8H PRN PRN Reason: Cough Last Admin: 04/01/17 20:22 Dose: 5 ml Clindamycin Phosphate (Cleocin In Normal Saline) 600 mg in 50 mls @ 50 mls/hr IVPB Q8 [facility] PRN Reason: Protocol Last Admin: 04/03/17 09:53 Dose: 50 mls/hr Piperacillin Sod/Tazobactam (Sod 2.25 gm/ Sodium Chloride) 50 mls @ 50 mls/hr IVPB Q6 [facility] PRN Reason: Protocol Last Admin: 04/03/17 03:31 Dose: 50 mls/hr Insulin Human Lispro (Humalog) 0 units SC ACHS [facility] PRN Reason: Protocol Last Admin: 04/03/17 06:59 Dose: Not Given Levothyroxine Sodium (Synthroid) 25 mcg PO DAILY@0630 [facility] Last Admin: 04/03/17 05:29 Dose: 25 mcg Pantoprazole Sodium (Protonix Ec Tab) 40 mg PO DAILY [facility] Last Admin: 04/03/17 09:59 Dose: 40 mg Paroxetine HCl (Paxil) 30 mg PO DAILY [facility] Last Admin: 04/03/17 09:58 Dose: 30 mg - Labs Labs: 04/03/17 04:55 04/03/17 04:55 PT 13.3 Seconds (9.8-13.1) H 03/30/17 21:58 INR 1.2 (0.9-1.2) 03/30/17 21:58 APTT 32.0 Seconds (25.6-37.1) 03/30/17 21:58 Assessment and Plan - Assessment and Plan (Free Text) Assessment: 81 y/o F with PMHx of Dementia, NIDDM, Hypercholesterolemia, Pleural effusions, COPD, HTN, recent discharged from hospital due to UTI, admitted for evaluation of pneumonia and suspected sepsis. Plan: 1. Pneumonia, HAP vs Aspiration Pneumonia - Had recent hospitalization for Sepsis due to UTI. - On previous admission, CXR on 03/20/17 showed a new round opacity right upper madelin-thorax common non-specific. CT of Chest on 03/22/17: probable mucoid impaction in RUL bronchi. Recommend 3-months f/u. - During this admission: CXR 03/31/17 showed rounded masslike densities RUL, small right sided effusion with right basilar atelectasis and/or R sided effusion with R basilar atelectasis and/or infiltrate. - Chest CT with constrast on 03/31/17 showed chronic PE in R main, upper and lower lobe pulmonary arteries. B/L pleural effusions with overlying consolidation secondary to compressive atelectasis of infiltrate. RUL mucoid impaction. New RUL opacity secondary to atelectasis or infiltrate. - c/w PO pureed diet with liquids. - Pulmonology, Dr Kasper, on board who recommends conservative management at this moment. High risk for flexible bronchoscopy. - ID consult placed for Dr Guzmán. - As per ID: Clindamycin 600mg Q8H and Zosyn now 2.25gr Q6H. - Echocardiogram was suboptimal, LV size normal, mild/moderate concentric LVH, LV wall motion appears normal, LVEF 65-70%. - Pt to transfer from ICU to Med-Surg. - Speech recommends thin fluids and pureed diet. 2. Sepsis - SIRS( fever, leukocytosis, tachycardia) + RLL infiltrate - U/A on 03/31/17 showed leukocyte esterase and neg nitrate. - As per ID: Clindamycin 600mg Q8H and Zosyn now 2.25gr Q6H. - Pt to transfer from ICU to Med-Surg. 3. Hypokalemia - Serum K+ 3.2-low today 04/02/17 - KCl 10mEq IV, 4 bags, will be administered. 4. Elevated troponin/preserved ejection fraction-CHF Exacerbation has been ruled out. -Pro BMP 19157 -1st Troponin 0.766-elevated, 2nd Troponin 0.478-elevated. -EKG HR: 128, sinus tachy, LVH, old [place] infarction, no acute changes compared last EKG -[employer], Dr Aziza Gaspar, on board, and ordered IV fluids. Suspect elevated troponins are due to sepsis. -Echocardiogram was suboptimal, LV size normal, mild/moderate concentric LVH, LV wall motion appears normal, LVEF 65-70%. 5. Chronic Pulmonary Embolism -D-dimer 1247-elevated -PE vs D-dimer elevation due to sepsis -High risk for DVT/PE. pt bed bound -Chest CT with contrast on 03/31/17 showed chronic PE in R main, upper and lower lobe pulmonary arteries. B/L pleural effusions with overlying consolidation secondary to compressive atelectasis of infiltrate. RUL mucoid impaction. New RUL opacity secondary to atelectasis or infiltrate. -C/w Enoxaparin 100mg Q12H -Considering home therapy with Xarelto 15mg PO Q12H for the first 21 days and then 20mg daily for 6 months. 5. DM -chronic -not home meds -SSI -Hypoglycemia protocol 6. Hx/o Hypothyroidism -c/w home medications -TSH 0.9 03/21/18 -Levothyroxine 25 mcg daily 7. Hx/o COPD -Duoneb PRN q 4h 8. CKD 3A GFR: 53 Bun/Cr 16/1.0 9. Prophylaxis -Enoxaparin 90 mg Q12H -Diet Pureed and liquid recommended pureed diet and liquids. <Eddie Holm - Last Filed: 04/05/17 06:49> Objective - Vital Signs/Intake and Output Vital Signs (last 24 hours): Temp Pulse Resp BP Pulse Ox 99.0 F 94 H 18 152/62 H 93 L 04/05/17 00:07 04/05/17 00:07 04/05/17 00:07 04/05/17 00:07 04/05/17 00:07 - Medications Medications: Current Medications Acetaminophen (Tylenol 325mg Tab) 650 mg PO Q6H PRN PRN Reason: Pain, Mild (1-3) Last Admin: 04/05/17 02:18 Dose: 650 mg Acetaminophen (Tylenol 325mg Tab) 650 mg PO Q6H PRN PRN Reason: Fever >100.4 F Albuterol/Ipratropium (Duoneb 3 Mg/0.5 Mg (3 Ml) Ud) 3 ml INH RQ4 PRN PRN Reason: Shortness of Breath Last Admin: 03/31/17 19:05 Dose: 3 ml Aspirin (Aspirin) 325 mg PO DAILY [facility] Last Admin: 04/04/17 09:22 Dose: 325 mg Atorvastatin Calcium (Lipitor) 40 mg PO DAILY [facility] Last Admin: 04/04/17 09:23 Dose: 40 mg Dextrose (Dextrose 50% Inj) 0 ml IVP STAT PRN; Protocol PRN Reason: Hypoglycemia Protocol Enoxaparin Sodium (Lovenox) 90 mg SC Q12@0600,1800 [facility] PRN Reason: Protocol Last Admin: 04/05/17 06:20 Dose: 90 mg Glucagon (Glucagen Diagnostic Kit) 0 mg IM STAT PRN; Protocol PRN Reason: Hypoglycemia Protocol Guaifenesin/Dextromethorphan (Robitussin Dm) 5 ml PO Q8H PRN PRN Reason: Cough Last Admin: 04/01/17 20:22 Dose: 5 ml Clindamycin Phosphate (Cleocin In Normal Saline) 600 mg in 50 mls @ 50 mls/hr IVPB Q8 [facility] PRN Reason: Protocol Last Admin: 04/05/17 00:06 Dose: 50 mls/hr Piperacillin Sod/Tazobactam (Sod 2.25 gm/ Sodium Chloride) 50 mls @ 50 mls/hr IVPB Q6 [facility] PRN Reason: Protocol Last Admin: 04/05/17 03:54 Dose: 50 mls/hr Insulin Human Lispro (Humalog) 0 units SC ACHS [facility] PRN Reason: Protocol Last Admin: 04/04/17 21:22 Dose: Not Given Levothyroxine Sodium (Synthroid) 25 mcg PO DAILY@0630 [facility] Last Admin: 04/05/17 06:20 Dose: 25 mcg Magnesium Chloride (Slow-Mag) 64 mg PO DAILY [facility] Last Admin: 04/04/17 12:02 Dose: 64 mg Nystatin (Nystop Topical Powder) 1 applic TOP TID [facility] Last Admin: 04/04/17 16:17 Dose: 1 applic Pantoprazole Sodium (Protonix Ec Tab) 40 mg PO DAILY [facility] Last Admin: 04/04/17 09:21 Dose: 40 mg Paroxetine HCl (Paxil) 30 mg PO DAILY [facility] Last Admin: 04/04/17 09:22 Dose: 30 mg - Labs Labs: 04/04/17 06:15 04/04/17 06:15 PT 13.3 Seconds (9.8-13.1) H 03/30/17 21:58 INR 1.2 (0.9-1.2) 03/30/17 21:58 APTT 32.0 Seconds (25.6-37.1) 03/30/17 21:58 Attending/Attestation - Attestation I have personally seen and examined this patient.: Yes I have fully participated in the care of the patient.: Yes I have reviewed all pertinent clinical information, including history, physical exam and plan: Yes
--- NOTE | 2017-04-03 11:23 | CP.PCM.PN ---
Subjective - Date & Time of Evaluation Date of Evaluation: 04/03/17 Time of Evaluation: 11:11 - Subjective Subjective: Seen on morning rounds in ICU. Remains afebrile, good oxygenation, mildly hypertensive. Labs were reviewed; remain stable. Neurologically unchanged, opens eyes, does not respond appropriately. Does not follow commands. 1+ dependant edema w/o cyanosis. No dullness on percussion of the anterior chest wall. Breath sounds are equal anteriorly. Rhonchi still present RUL region anteriorly. Markedly decreased breath sounds in the LLL region posteriorly. No audible wheezing or bronchial breathing. Discussed with house staff regarding further treatment. Would require chest tube drainage of the left pleural effusion and pleurodesis. Would require flexible bronchoscopy for workup of RUL infiltrate. Patient's son in law at the bedside was advised of the need for clarification regarding invasive procedures. He will discuss this with the patient's son and daughter. Possibly palliative care going forward. Objective - Vital Signs/Intake and Output Vital Signs (last 24 hours): Temp Pulse Resp BP Pulse Ox 99.9 F H 110 H 31 H 172/85 H 95 04/03/17 08:00 04/03/17 08:00 04/03/17 08:00 04/03/17 08:00 04/03/17 08:00 Intake and Output: 04/02/17 04/03/17 23:59 11:59 Intake Total 200 200 Balance 200 200 - Medications Medications: Current Medications Acetaminophen (Tylenol 325mg Tab) 650 mg PO Q6H PRN PRN Reason: Pain, Mild (1-3) Last Admin: 03/31/17 08:14 Dose: 650 mg Acetaminophen (Tylenol 325mg Tab) 650 mg PO Q6H PRN PRN Reason: Fever >100.4 F Albuterol/Ipratropium (Duoneb 3 Mg/0.5 Mg (3 Ml) Ud) 3 ml INH RQ4 PRN PRN Reason: Shortness of Breath Last Admin: 03/31/17 19:05 Dose: 3 ml Aspirin (Aspirin) 325 mg PO DAILY [facility] Last Admin: 04/03/17 09:52 Dose: 325 mg Atorvastatin Calcium (Lipitor) 40 mg PO DAILY [facility] Last Admin: 04/03/17 09:58 Dose: 40 mg Dextrose (Dextrose 50% Inj) 0 ml IVP STAT PRN; Protocol PRN Reason: Hypoglycemia Protocol Enoxaparin Sodium (Lovenox) 90 mg SC Q12@0600,1800 [facility] PRN Reason: Protocol Last Admin: 04/03/17 05:16 Dose: 90 mg Glucagon (Glucagen Diagnostic Kit) 0 mg IM STAT PRN; Protocol PRN Reason: Hypoglycemia Protocol Guaifenesin/Dextromethorphan (Robitussin Dm) 5 ml PO Q8H PRN PRN Reason: Cough Last Admin: 04/01/17 20:22 Dose: 5 ml Clindamycin Phosphate (Cleocin In Normal Saline) 600 mg in 50 mls @ 50 mls/hr IVPB Q8 [facility] PRN Reason: Protocol Last Admin: 04/03/17 09:53 Dose: 50 mls/hr Piperacillin Sod/Tazobactam (Sod 2.25 gm/ Sodium Chloride) 50 mls @ 50 mls/hr IVPB Q6 [facility] PRN Reason: Protocol Last Admin: 04/03/17 10:58 Dose: 50 mls/hr Insulin Human Lispro (Humalog) 0 units SC ACHS [facility] PRN Reason: Protocol Last Admin: 04/03/17 06:59 Dose: Not Given Levothyroxine Sodium (Synthroid) 25 mcg PO DAILY@0630 [facility] Last Admin: 04/03/17 05:29 Dose: 25 mcg Pantoprazole Sodium (Protonix Ec Tab) 40 mg PO DAILY [facility] Last Admin: 04/03/17 09:59 Dose: 40 mg Paroxetine HCl (Paxil) 30 mg PO DAILY [facility] Last Admin: 04/03/17 09:58 Dose: 30 mg - Labs Labs: 04/03/17 04:55 04/03/17 04:55 PT 13.3 Seconds (9.8-13.1) H 03/30/17 21:58 INR 1.2 (0.9-1.2) 03/30/17 21:58 APTT 32.0 Seconds (25.6-37.1) 03/30/17 21:58 Assessment and Plan (1) Pulmonary infiltrate present on computed tomography Status: Chronic (2) Pulmonary embolism on right Status: Chronic
[2017-04-04] MEDS: Clindamycin 600mg/50ml NS 600 MG/50 ML BAG IVPB SCH ×3 (00:45→16:18)
[2017-04-04] MEDS: Piperacillin/Tazobact 2.25 GM in Sodium Chloride 0.9% 50 ML IVPB SCH ×4 (04:11→21:19)
[2017-04-04] MEDS: Enoxaparin 100 mg Syringe SC SCH ×2 (06:10→17:16)
[2017-04-04] MEDS: Levothyroxine 25 MCG TAB PO SCH (06:12)
[2017-04-04] MEDS: Insulin Lispro (humaLOG) 100 Units/ml Inj SC SCH ×4 (06:42→21:22)
[2017-04-04 06:59] LABS: MEAN CELL VOLUME 81.7 fl (81.0-99.0); MEAN CORPUSCULAR HEMOGLOBIN 25.5 pg (27.0-31.0); MEAN CORPUSCULAR HGB CONC 31.2 g/dL (33.0-37.0); RBC 3.91 Mil/uL (3.80-5.20); RED CELL DISTRIBUTION WIDTH 17.3 % (11.5-14.5); WHITE BLOOD COUNT 7.2 K/uL (4.8-10.8)
[2017-04-04 07:03] LABS: BLOOD UREA NITROGEN 8 mg/dl (7-17); CALCIUM 7.9 mg/dL (8.4-10.2); GFR AFRICAN-AMERICAN > 60; GFR NON-AFRICAN AMERICAN 60
[2017-04-04] MEDS: Pantoprazole 40 mg EC Tab PO SCH (09:21)
--- NOTE | 2017-04-04 09:35 | CP.PCM.PN ---
<Antelmo Harrison - Last Filed: 04/04/17 15:01> Subjective - Date & Time of Evaluation Date of Evaluation: 04/04/17 Time of Evaluation: 09:32 - Subjective Subjective: Patient seen and examined bedside. There are no acute events overnight. Patient is alert but confused. Patient tolerating PO pureed soft diet. Objective - Vital Signs/Intake and Output Vital Signs (last 24 hours): Temp Pulse Resp BP Pulse Ox 98.1 F 96 H 20 127/77 97 04/04/17 07:54 04/04/17 07:54 04/04/17 07:54 04/04/17 07:54 04/04/17 07:54 - Medications Medications: Current Medications Acetaminophen (Tylenol 325mg Tab) 650 mg PO Q6H PRN PRN Reason: Pain, Mild (1-3) Last Admin: 03/31/17 08:14 Dose: 650 mg Acetaminophen (Tylenol 325mg Tab) 650 mg PO Q6H PRN PRN Reason: Fever >100.4 F Albuterol/Ipratropium (Duoneb 3 Mg/0.5 Mg (3 Ml) Ud) 3 ml INH RQ4 PRN PRN Reason: Shortness of Breath Last Admin: 03/31/17 19:05 Dose: 3 ml Aspirin (Aspirin) 325 mg PO DAILY [facility] Last Admin: 04/04/17 09:22 Dose: 325 mg Atorvastatin Calcium (Lipitor) 40 mg PO DAILY [facility] Last Admin: 04/04/17 09:23 Dose: 40 mg Dextrose (Dextrose 50% Inj) 0 ml IVP STAT PRN; Protocol PRN Reason: Hypoglycemia Protocol Enoxaparin Sodium (Lovenox) 90 mg SC Q12@0600,1800 [facility] PRN Reason: Protocol Last Admin: 04/04/17 06:10 Dose: 90 mg Glucagon (Glucagen Diagnostic Kit) 0 mg IM STAT PRN; Protocol PRN Reason: Hypoglycemia Protocol Guaifenesin/Dextromethorphan (Robitussin Dm) 5 ml PO Q8H PRN PRN Reason: Cough Last Admin: 04/01/17 20:22 Dose: 5 ml Clindamycin Phosphate (Cleocin In Normal Saline) 600 mg in 50 mls @ 50 mls/hr IVPB Q8 [facility] PRN Reason: Protocol Last Admin: 04/04/17 09:21 Dose: 50 mls/hr Piperacillin Sod/Tazobactam (Sod 2.25 gm/ Sodium Chloride) 50 mls @ 50 mls/hr IVPB Q6 [facility] PRN Reason: Protocol Last Admin: 04/04/17 09:22 Dose: 50 mls/hr Insulin Human Lispro (Humalog) 0 units SC ACHS [facility] PRN Reason: Protocol Last Admin: 04/04/17 06:42 Dose: Not Given Levothyroxine Sodium (Synthroid) 25 mcg PO DAILY@0630 [facility] Last Admin: 04/04/17 06:12 Dose: 25 mcg Nystatin (Nystop Topical Powder) 1 applic TOP TID [facility] Last Admin: 04/04/17 09:23 Dose: 1 applic Pantoprazole Sodium (Protonix Ec Tab) 40 mg PO DAILY [facility] Last Admin: 04/04/17 09:21 Dose: 40 mg Paroxetine HCl (Paxil) 30 mg PO DAILY [facility] Last Admin: 04/04/17 09:22 Dose: 30 mg - Labs Labs: 04/04/17 06:15 04/04/17 06:15 PT 13.3 Seconds (9.8-13.1) H 03/30/17 21:58 INR 1.2 (0.9-1.2) 03/30/17 21:58 APTT 32.0 Seconds (25.6-37.1) 03/30/17 21:58 - Constitutional Appears: No Acute Distress - Head Exam Head Exam: ATRAUMATIC, NORMAL INSPECTION, NORMOCEPHALIC - Eye Exam Eye Exam: Normal appearance - ENT Exam ENT Exam: Mucous Membranes Moist - Neck Exam Neck Exam: Full ROM. absent: Tenderness - Respiratory Exam Respiratory Exam: Rales, Rhonchi. absent: Wheezes, Respiratory Distress - Cardiovascular Exam Cardiovascular Exam: absent: Tachycardia - GI/Abdominal Exam GI & Abdominal Exam: Soft, Normal Bowel Sounds. absent: Distended, Tenderness - Extremities Exam Extremities Exam: Pedal Edema. absent: Calf Tenderness, Tenderness - Neurological Exam Neurological Exam: Alert, Awake. absent: Oriented x3 Assessment and Plan - Assessment and Plan (Free Text) Assessment: 81 y/o woman with pmh of Dementia, NIDDM, Hypercholesterolemia, Pleural effusions, COPD, HTN, recent discharged from hospital due to UTI, admitted for evaluation of pneumonia and suspected sepsis. Plan: 1) Pneumonia, HAP vs Aspiration Pneumonia - Had recent hospitalization for Sepsis due to UTI. - On previous admission, CXR on 03/20/17 showed a new round opacity right upper madelin-thorax common non-specific. CT of Chest on 03/22/17: probable mucoid impaction in RUL bronchi. Recommend 3-months f/u. - During this admission: CXR 03/31/17 showed rounded masslike densities RUL, small right sided effusion with right basilar atelectasis and/or R sided effusion with R basilar atelectasis and/or infiltrate. - Chest CT with constrast on 03/31/17 showed chronic PE in R main, upper and lower lobe pulmonary arteries. B/L pleural effusions with overlying consolidation secondary to compressive atelectasis of infiltrate. RUL mucoid impaction. New RUL opacity secondary to atelectasis or infiltrate. - c/w PO pureed diet with liquids. - Pulmonology, Dr Kasper, recommends conservative management at this moment. High risk for flexible bronchoscopy. - ID consult, Dr Guzmán. - As per ID: Clindamycin 600mg Q8H and Zosyn now 2.25gm Q6H. - Echocardiogram was suboptimal, LV size normal, mild/moderate concentric LVH, LV wall motion appears normal, LVEF 65-70%. - Pt discharge to TCU pending - Speech recommends thin fluids and pureed diet. 2) Sepsis - SIRS( fever, leukocytosis, tachycardia) + RLL infiltrate - U/A on 03/31/17 showed leukocyte esterase and neg nitrate. - As per ID: Clindamycin 600mg Q8H and Zosyn now 2.25gr Q6H. 3) Mild hypokalemia, mild hypomagnesia - Serum K+ 3.4 - Serum Mg+ 1.3 - phosphorous WNL - magnesium, chloride, calcium 64 mg PO daily 4) Elevated troponin/preserved ejection fraction-CHF Exacerbation has been ruled out -Pro BMP 96670 -1st Troponin 0.766-elevated, 2nd Troponin 0.478-elevated. -EKG HR: 128, sinus tachy, LVH, old [place] infarction, no acute changes compared last EKG -[employer], Dr Aziza Gaspar, on board, and ordered IV fluids. Suspect elevated troponins are due to sepsis. -Echocardiogram was suboptimal, LV size normal, mild/moderate concentric LVH, LV wall motion appears normal, LVEF 65-70%. 5) Chronic Pulmonary Embolism -D-dimer 1247-elevated -PE vs D-dimer elevation due to sepsis -High risk for DVT/PE. pt bed bound -Chest CT with contrast on 03/31/17 showed chronic PE in R main, upper and lower lobe pulmonary arteries. B/L pleural effusions with overlying consolidation secondary to compressive atelectasis of infiltrate. RUL mucoid impaction. New RUL opacity secondary to atelectasis or infiltrate. -C/w Enoxaparin 90mg Q12H -Considering home therapy with Xarelto 15mg PO Q12H for the first 21 days and then 20mg daily for 6 months. 6) NIDDM -chronic -no home meds -SSI -Hypoglycemia protocol 7) Hx/o Hypothyroidism -c/w home medications -TSH 0.9 03/21/18 -Levothyroxine 25 mcg daily 8) Hx/o COPD -Duoneb PRN Q4h 9) CKD 3A -GFR: 60 Bun/Cr 8/0.9 10) Prophylaxis -Enoxaparin 90 mg Q12H -Diet Pureed and liquid as per speech recommendations Dispo: patient pending discharge to TCU <Ta Lipscomb - Last Filed: 04/08/17 06:46> Objective - Vital Signs/Intake and Output Vital Signs (last 24 hours): Temp Pulse Resp BP Pulse Ox 98.5 F 96 H 20 145/70 95 04/05/17 16:39 04/05/17 16:39 04/05/17 16:39 04/05/17 16:39 04/05/17 16:39 - Labs Labs: 04/05/17 06:50 04/05/17 06:50 PT 13.3 Seconds (9.8-13.1) H 03/30/17 21:58 INR 1.2 (0.9-1.2) 03/30/17 21:58 APTT 32.0 Seconds (25.6-37.1) 03/30/17 21:58 Attending/Attestation - Attestation I have personally seen and examined this patient.: Yes I have fully participated in the care of the patient.: Yes I have reviewed all pertinent clinical information, including history, physical exam and plan: Yes
[2017-04-04 10:15] LABS: MAGNESIUM 1.3 MG/DL (1.6-2.3)
--- NOTE | 2017-04-04 11:28 | CP.PCM.PN ---
Subjective - Date & Time of Evaluation Date of Evaluation: 04/04/17 Time of Evaluation: 11:28 - Subjective Subjective: Clinically remains unchanged. Lying supine in bed in no distress. Easily awakens. Does not follow commands. Responds verbally, but confused. No dullness on percussion of the anterior chest wall. Breath sounds are absent in the left base posteriorly. No audible wheezes or bronchial breath sounds. Remains on clindamycin/pip-tazo. Objective - Vital Signs/Intake and Output Vital Signs (last 24 hours): Temp Pulse Resp BP Pulse Ox 98.1 F 96 H 20 127/77 97 04/04/17 07:54 04/04/17 07:54 04/04/17 07:54 04/04/17 07:54 04/04/17 07:54 - Medications Medications: Current Medications Acetaminophen (Tylenol 325mg Tab) 650 mg PO Q6H PRN PRN Reason: Pain, Mild (1-3) Last Admin: 03/31/17 08:14 Dose: 650 mg Acetaminophen (Tylenol 325mg Tab) 650 mg PO Q6H PRN PRN Reason: Fever >100.4 F Albuterol/Ipratropium (Duoneb 3 Mg/0.5 Mg (3 Ml) Ud) 3 ml INH RQ4 PRN PRN Reason: Shortness of Breath Last Admin: 03/31/17 19:05 Dose: 3 ml Aspirin (Aspirin) 325 mg PO DAILY [facility] Last Admin: 04/04/17 09:22 Dose: 325 mg Atorvastatin Calcium (Lipitor) 40 mg PO DAILY [facility] Last Admin: 04/04/17 09:23 Dose: 40 mg Dextrose (Dextrose 50% Inj) 0 ml IVP STAT PRN; Protocol PRN Reason: Hypoglycemia Protocol Enoxaparin Sodium (Lovenox) 90 mg SC Q12@0600,1800 [facility] PRN Reason: Protocol Last Admin: 04/04/17 06:10 Dose: 90 mg Glucagon (Glucagen Diagnostic Kit) 0 mg IM STAT PRN; Protocol PRN Reason: Hypoglycemia Protocol Guaifenesin/Dextromethorphan (Robitussin Dm) 5 ml PO Q8H PRN PRN Reason: Cough Last Admin: 04/01/17 20:22 Dose: 5 ml Clindamycin Phosphate (Cleocin In Normal Saline) 600 mg in 50 mls @ 50 mls/hr IVPB Q8 [facility] PRN Reason: Protocol Last Admin: 04/04/17 09:21 Dose: 50 mls/hr Piperacillin Sod/Tazobactam (Sod 2.25 gm/ Sodium Chloride) 50 mls @ 50 mls/hr IVPB Q6 [facility] PRN Reason: Protocol Last Admin: 04/04/17 09:22 Dose: 50 mls/hr Insulin Human Lispro (Humalog) 0 units SC ACHS [facility] PRN Reason: Protocol Last Admin: 04/04/17 11:14 Dose: Not Given Levothyroxine Sodium (Synthroid) 25 mcg PO DAILY@0630 [facility] Last Admin: 04/04/17 06:12 Dose: 25 mcg Magnesium Chloride (Slow-Mag) 64 mg PO DAILY [facility] Nystatin (Nystop Topical Powder) 1 applic TOP TID [facility] Last Admin: 04/04/17 09:23 Dose: 1 applic Pantoprazole Sodium (Protonix Ec Tab) 40 mg PO DAILY [facility] Last Admin: 04/04/17 09:21 Dose: 40 mg Paroxetine HCl (Paxil) 30 mg PO DAILY [facility] Last Admin: 04/04/17 09:22 Dose: 30 mg - Labs Labs: 04/04/17 06:15 04/04/17 06:15 PT 13.3 Seconds (9.8-13.1) H 03/30/17 21:58 INR 1.2 (0.9-1.2) 03/30/17 21:58 APTT 32.0 Seconds (25.6-37.1) 03/30/17 21:58 Assessment and Plan (1) Pulmonary infiltrate present on computed tomography Status: Chronic (2) Pulmonary embolism on right Status: Chronic
[2017-04-04] MEDS: Magnesium Chloride 64 mg ER Tab PO SCH (12:02)
[2017-04-04 16:03] VITALS: BMI 34.3
[2017-04-05] MEDS: Clindamycin 600mg/50ml NS 600 MG/50 ML BAG IVPB SCH ×2 (00:06→09:00)
[2017-04-05] MEDS: Piperacillin/Tazobact 2.25 GM in Sodium Chloride 0.9% 50 ML IVPB SCH ×3 (03:54→16:10)
[2017-04-05] MEDS: Levothyroxine 25 MCG TAB PO SCH (06:20)
[2017-04-05] MEDS: Enoxaparin 100 mg Syringe SC SCH ×2 (06:20→18:29)
[2017-04-05 07:06] LABS: HEMOGLOBIN 10.2 g/dL (12.0-16.0); MEAN CORPUSCULAR HEMOGLOBIN 25.8 pg (27.0-31.0); MEAN CORPUSCULAR HGB CONC 31.8 g/dL (33.0-37.0); RBC 3.97 Mil/uL (3.80-5.20); RED CELL DISTRIBUTION WIDTH 16.9 % (11.5-14.5); WHITE BLOOD COUNT 8.4 K/uL (4.8-10.8)
[2017-04-05 07:16] LABS: BLOOD UREA NITROGEN 8 mg/dl (7-17); CALCIUM 7.9 mg/dL (8.4-10.2); GFR AFRICAN-AMERICAN > 60; GFR NON-AFRICAN AMERICAN 53
--- NOTE | 2017-04-05 08:06 | CP.PCM.PN ---
<Antelmo Harrison - Last Filed: 04/05/17 13:26> Subjective - Date & Time of Evaluation Date of Evaluation: 04/05/17 Time of Evaluation: 07:30 - Subjective Subjective: Patient seen and examined bedside. There are no acute events overnight. Patient is alert but confused. Patient tolerating PO pureed soft diet. Objective - Vital Signs/Intake and Output Vital Signs (last 24 hours): Temp Pulse Resp BP Pulse Ox 99.0 F 94 H 18 152/62 H 93 L 04/05/17 00:07 04/05/17 00:07 04/05/17 00:07 04/05/17 00:07 04/05/17 00:07 - Medications Medications: Current Medications Acetaminophen (Tylenol 325mg Tab) 650 mg PO Q6H PRN PRN Reason: Pain, Mild (1-3) Last Admin: 04/05/17 02:18 Dose: 650 mg Acetaminophen (Tylenol 325mg Tab) 650 mg PO Q6H PRN PRN Reason: Fever >100.4 F Albuterol/Ipratropium (Duoneb 3 Mg/0.5 Mg (3 Ml) Ud) 3 ml INH RQ4 PRN PRN Reason: Shortness of Breath Last Admin: 03/31/17 19:05 Dose: 3 ml Aspirin (Aspirin) 325 mg PO DAILY [facility] Last Admin: 04/04/17 09:22 Dose: 325 mg Atorvastatin Calcium (Lipitor) 40 mg PO DAILY [facility] Last Admin: 04/04/17 09:23 Dose: 40 mg Dextrose (Dextrose 50% Inj) 0 ml IVP STAT PRN; Protocol PRN Reason: Hypoglycemia Protocol Enoxaparin Sodium (Lovenox) 90 mg SC Q12@0600,1800 [facility] PRN Reason: Protocol Last Admin: 04/05/17 06:20 Dose: 90 mg Glucagon (Glucagen Diagnostic Kit) 0 mg IM STAT PRN; Protocol PRN Reason: Hypoglycemia Protocol Guaifenesin/Dextromethorphan (Robitussin Dm) 5 ml PO Q8H PRN PRN Reason: Cough Last Admin: 04/01/17 20:22 Dose: 5 ml Clindamycin Phosphate (Cleocin In Normal Saline) 600 mg in 50 mls @ 50 mls/hr IVPB Q8 [facility] PRN Reason: Protocol Last Admin: 04/05/17 00:06 Dose: 50 mls/hr Piperacillin Sod/Tazobactam (Sod 2.25 gm/ Sodium Chloride) 50 mls @ 50 mls/hr IVPB Q6 [facility] PRN Reason: Protocol Last Admin: 04/05/17 03:54 Dose: 50 mls/hr Insulin Human Lispro (Humalog) 0 units SC ACHS [facility] PRN Reason: Protocol Last Admin: 04/04/17 21:22 Dose: Not Given Levothyroxine Sodium (Synthroid) 25 mcg PO DAILY@0630 [facility] Last Admin: 04/05/17 06:20 Dose: 25 mcg Magnesium Chloride (Slow-Mag) 64 mg PO DAILY [facility] Last Admin: 04/04/17 12:02 Dose: 64 mg Nystatin (Nystop Topical Powder) 1 applic TOP TID [facility] Last Admin: 04/04/17 16:17 Dose: 1 applic Pantoprazole Sodium (Protonix Ec Tab) 40 mg PO DAILY [facility] Last Admin: 04/04/17 09:21 Dose: 40 mg Paroxetine HCl (Paxil) 30 mg PO DAILY [facility] Last Admin: 04/04/17 09:22 Dose: 30 mg - Labs Labs: 04/05/17 06:50 04/05/17 06:50 PT 13.3 Seconds (9.8-13.1) H 03/30/17 21:58 INR 1.2 (0.9-1.2) 03/30/17 21:58 APTT 32.0 Seconds (25.6-37.1) 03/30/17 21:58 - Constitutional Appears: No Acute Distress - Head Exam Head Exam: ATRAUMATIC, NORMAL INSPECTION, NORMOCEPHALIC - Eye Exam Eye Exam: Normal appearance - ENT Exam ENT Exam: Mucous Membranes Moist - Neck Exam Neck Exam: Full ROM. absent: Tenderness - Respiratory Exam Respiratory Exam: Rales, Rhonchi. absent: Wheezes, Respiratory Distress - Cardiovascular Exam Cardiovascular Exam: absent: Tachycardia - GI/Abdominal Exam GI & Abdominal Exam: Soft, Normal Bowel Sounds. absent: Distended, Tenderness - Extremities Exam Extremities Exam: absent: Calf Tenderness, Pedal Edema, Tenderness - Neurological Exam Neurological Exam: Alert, Awake. absent: Oriented x3 - Skin Skin Exam: absent: Rash Assessment and Plan - Assessment and Plan (Free Text) Assessment: 81 y/o woman with pmh of Dementia, NIDDM, Hypercholesterolemia, Pleural effusions, COPD, HTN, recent discharged from hospital due to UTI, admitted for evaluation of pneumonia and suspected sepsis. Plan: 1) Pneumonia, HAP vs Aspiration Pneumonia - Had recent hospitalization for Sepsis due to UTI. - Pulmonology, Dr Kasper, recommends conservative management at this moment. High risk for flexible bronchoscopy. - ID consult, Dr Guzmán. - As per ID: Clindamycin 600mg Q8H and Zosyn 2.25gm Q6H. - Echocardiogram was suboptimal, LV size normal, mild/moderate concentric LVH, LV wall motion appears normal, LVEF 65-70%. - Speech recommends thin fluids and pureed diet. 2) Sepsis - SIRS( fever, leukocytosis, tachycardia) + RLL infiltrate - U/A on 03/31/17 showed leukocyte esterase and neg nitrate. - As per ID: Clindamycin 600mg Q8H and Zosyn now 2.25gr Q6H. 3) Mild hypokalemia, mild hypomagnesia - Serum K+ 3.3 - Serum Mg+ 1.3 - phosphorous WNL - magnesium, chloride, calcium 64 mg PO daily - KCl 10 meq IV x4 doses 4) Elevated troponin/preserved ejection fraction-CHF Exacerbation has been ruled out -Pro BMP 22041 -1st Troponin 0.766-elevated, 2nd Troponin 0.478-elevated. 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 Suspect elevated troponins are due to sepsis. -Echocardiogram was suboptimal, LV size normal, mild/moderate concentric LVH, LV wall motion appears normal, LVEF 65-70%. 5) Chronic Pulmonary Embolism -D-dimer 1247-elevated -PE vs D-dimer elevation due to sepsis -High risk for DVT/PE. pt bed bound -Chest CT with contrast on 03/31/17 showed chronic PE in R main, upper and lower lobe pulmonary arteries. B/L pleural effusions with overlying consolidation secondary to compressive atelectasis of infiltrate. RUL mucoid impaction. New RUL opacity secondary to atelectasis or infiltrate. -C/w Enoxaparin 90mg Q12H -Considering home therapy with Xarelto 15mg PO Q12H for the first 21 days and then 20mg daily for 6 months. 6) NIDDM -chronic -no home meds -SSI -Hypoglycemia protocol 7) Hx/o Hypothyroidism -c/w home medications -TSH 0.9 03/21/18 -Levothyroxine 25 mcg daily 8) Hx/o COPD -Duoneb PRN Q4h 9) CKD 3A -GFR: 60 Bun/Cr 8/0.9 10) Prophylaxis -Enoxaparin 90 mg Q12H -Diet Pureed and liquid as per speech recommendations Dispo: discuss with healthcare proxy regarding goals of treatment and/or patient placement for TCU, subacute, or long-term care <Eddie Holm - Last Filed: 04/08/17 07:04> Objective - Vital Signs/Intake and Output Vital Signs (last 24 hours): Temp Pulse Resp BP Pulse Ox 98.5 F 96 H 20 145/70 95 04/05/17 16:39 04/05/17 16:39 04/05/17 16:39 04/05/17 16:39 04/05/17 16:39 - Labs Labs: 04/05/17 06:50 04/05/17 06:50 PT 13.3 Seconds (9.8-13.1) H 03/30/17 21:58 INR 1.2 (0.9-1.2) 03/30/17 21:58 APTT 32.0 Seconds (25.6-37.1) 03/30/17 21:58 Attending/Attestation - Attestation I have personally seen and examined this patient.: Yes I have fully participated in the care of the patient.: Yes I have reviewed all pertinent clinical information, including history, physical exam and plan: Yes
[2017-04-05] MEDS: Pantoprazole 40 mg EC Tab PO SCH (08:59)
[2017-04-05] MEDS: Magnesium Chloride 64 mg ER Tab PO SCH (08:59)
[2017-04-05] MEDS: Insulin Lispro (humaLOG) 100 Units/ml Inj SC SCH ×3 (09:00→16:11)
[2017-04-05 10:37] VITALS: RESP 20
--- NOTE | 2017-04-05 11:15 | CP.PCM.PN ---
Subjective - Date & Time of Evaluation Date of Evaluation: 04/05/17 Time of Evaluation: 11:11 - Subjective Subjective: Remaions as before. Lying motionless in bed. Opens eyes to stimulus, but non-verbal and not following commands. Rhonchi are present bilaterally now, more left than right. Breath sounds are absent in the LLL. Awaiting decision from health care proxy. FFB may be able to clear the airway, but only temporarily since she is bed- bound and doesn't cough or move. Objective - Vital Signs/Intake and Output Vital Signs (last 24 hours): Temp Pulse Resp BP Pulse Ox 98.4 F 101 H 20 146/67 97 04/05/17 10:37 04/05/17 10:37 04/05/17 10:37 04/05/17 10:37 04/05/17 10:37 - Medications Medications: Current Medications Acetaminophen (Tylenol 325mg Tab) 650 mg PO Q6H PRN PRN Reason: Pain, Mild (1-3) Last Admin: 04/05/17 02:18 Dose: 650 mg Acetaminophen (Tylenol 325mg Tab) 650 mg PO Q6H PRN PRN Reason: Fever >100.4 F Albuterol/Ipratropium (Duoneb 3 Mg/0.5 Mg (3 Ml) Ud) 3 ml INH RQ4 PRN PRN Reason: Shortness of Breath Last Admin: 03/31/17 19:05 Dose: 3 ml Aspirin (Aspirin) 325 mg PO DAILY [facility] Last Admin: 04/05/17 09:00 Dose: 325 mg Atorvastatin Calcium (Lipitor) 40 mg PO DAILY [facility] Last Admin: 04/05/17 09:00 Dose: 40 mg Dextrose (Dextrose 50% Inj) 0 ml IVP STAT PRN; Protocol PRN Reason: Hypoglycemia Protocol Enoxaparin Sodium (Lovenox) 90 mg SC Q12@0600,1800 [facility] PRN Reason: Protocol Last Admin: 04/05/17 06:20 Dose: 90 mg Glucagon (Glucagen Diagnostic Kit) 0 mg IM STAT PRN; Protocol PRN Reason: Hypoglycemia Protocol Guaifenesin/Dextromethorphan (Robitussin Dm) 5 ml PO Q8H PRN PRN Reason: Cough Last Admin: 04/01/17 20:22 Dose: 5 ml Clindamycin Phosphate (Cleocin In Normal Saline) 600 mg in 50 mls @ 50 mls/hr IVPB Q8 [facility] PRN Reason: Protocol Last Admin: 04/05/17 09:00 Dose: 50 mls/hr Piperacillin Sod/Tazobactam (Sod 2.25 gm/ Sodium Chloride) 50 mls @ 50 mls/hr IVPB Q6 [facility] PRN Reason: Protocol Last Admin: 04/05/17 10:16 Dose: 50 mls/hr Insulin Human Lispro (Humalog) 0 units SC ACHS [facility] PRN Reason: Protocol Last Admin: 04/05/17 09:00 Dose: Not Given Levothyroxine Sodium (Synthroid) 25 mcg PO DAILY@0630 [facility] Last Admin: 04/05/17 06:20 Dose: 25 mcg Magnesium Chloride (Slow-Mag) 64 mg PO DAILY [facility] Last Admin: 04/05/17 08:59 Dose: 64 mg Nystatin (Nystop Topical Powder) 1 applic TOP TID [facility] Last Admin: 04/05/17 09:00 Dose: 1 applic Pantoprazole Sodium (Protonix Ec Tab) 40 mg PO DAILY [facility] Last Admin: 04/05/17 08:59 Dose: 40 mg Paroxetine HCl (Paxil) 30 mg PO DAILY [facility] Last Admin: 04/05/17 09:00 Dose: 30 mg - Labs Labs: 04/05/17 06:50 04/05/17 06:50 PT 13.3 Seconds (9.8-13.1) H 03/30/17 21:58 INR 1.2 (0.9-1.2) 03/30/17 21:58 APTT 32.0 Seconds (25.6-37.1) 03/30/17 21:58 Assessment and Plan (1) Pulmonary infiltrate present on computed tomography Status: Chronic (2) Pulmonary embolism on right Status: Chronic
[2017-04-05] MEDS: Potassium CL 10 MEQ/50 ML 50 ML IVPB SCH ×4 (12:25→18:29)
--- NOTE | 2017-04-05 12:35 | RAD ---
HISTORY: pneumonia COMPARISON: Comparison made with chest radiograph dated 04/02/2017. FINDINGS: LUNGS: Re- demonstrated is dense opacity left lung base likely representing some combination of atelectasis/ infiltrate and effusion. Mild vascular congestive changes slightly improved. PLEURA: No significant pleural effusion identified, no pneumothorax apparent. CARDIOVASCULAR: Heart remains enlarged. OSSEOUS STRUCTURES: No significant abnormalities. VISUALIZED UPPER ABDOMEN: Normal. OTHER FINDINGS: None. IMPRESSION: Re- demonstrated is dense opacity left lung base likely representing some combination of atelectasis/ infiltrate and effusion. Mild vascular congestive changes slightly improved.
--- NOTE | 2017-04-05 15:04 | CP.PCM.PCO ---
<Antelmo Harrison - Last Filed: 04/05/17 15:04> Physician Communication Note - Physician Communication Note Physician Communication Note: spoke at length w/ daughter and agrees to change status to DNR/DNI <Eddie Holm - Last Filed: 04/08/17 07:08> Attending/Attestation - Attestation I have personally seen and examined this patient.: Yes I have fully participated in the care of the patient.: Yes I have reviewed all pertinent clinical information: Yes
--- NOTE | 2017-04-05 15:51 | CP.PCM.DIS ---
<Antelmo Harrison - Last Filed: 04/05/17 16:12> Provider - Provider Date of Admission: 03/30/17 23:00 Attending physician: Eddie Holm MD Time Spent in preparation of Discharge (in minutes): 30 Hospital Course - Lab Results Lab Results: Micro Results 04/03/17 05:20 Naris MRSA Culture (Admit) - Final MRSA NOT DETECTED 03/30/17 21:47 Blood Blood Culture - Final NO GROWTH AFTER 5 DAYS 03/30/17 21:47 Blood Gram Stain - Final TEST NOT PERFORMED 03/30/17 00:05 Blood Blood Culture - Final NO GROWTH AFTER 5 DAYS 03/30/17 00:05 Blood Gram Stain - Final TEST NOT PERFORMED 03/31/17 11:00 Nose MRSA Culture (Admit) - Final MRSA NOT DETECTED 03/31/17 10:40 Urine Urine Culture - Final No Growth (<1,000 CFU/ML) Most Recent Lab Values WBC 8.4 K/uL (4.8-10.8) 04/05/17 06:50 RBC 3.97 Mil/uL (3.80-5.20) 04/05/17 06:50 Hgb 10.2 g/dL (12.0-16.0) L 04/05/17 06:50 Hct 32.2 % (34.0-47.0) L 04/05/17 06:50 MCV 81.0 fl (81.0-99.0) 04/05/17 06:50 MCH 25.8 pg (27.0-31.0) L 04/05/17 06:50 MCHC 31.8 g/dL (33.0-37.0) L 04/05/17 06:50 RDW 16.9 % (11.5-14.5) H 04/05/17 06:50 Plt Count 338 K/uL (130-400) 04/05/17 06:50 MPV 8.3 fl (7.2-11.7) 03/31/17 08:00 Neut % (Auto) 76.8 % (50.0-75.0) H 03/31/17 08:00 Lymph % (Auto) 14.2 % (20.0-40.0) L 03/31/17 08:00 [place] % (Auto) 7.7 % (0.0-10.0) 03/31/17 08:00 Eos % (Auto) 0.8 % (0.0-4.0) 03/31/17 08:00 Baso % (Auto) 0.5 % (0.0-2.0) 03/31/17 08:00 Neut # 12.3 K/uL (1.8-7.0) H 03/31/17 08:00 Lymph # 2.3 K/uL (1.0-4.3) 03/31/17 08:00 [place] # 1.2 K/uL (0.0-0.8) H 03/31/17 08:00 Eos # 0.1 K/uL (0.0-0.7) 03/31/17 08:00 Baso # 0.1 K/uL (0.0-0.2) 03/31/17 08:00 PT 13.3 Seconds (9.8-13.1) H 03/30/17 21:58 INR 1.2 (0.9-1.2) 03/30/17 21:58 APTT 32.0 Seconds (25.6-37.1) 03/30/17 21:58 D-Dimer, Quantitative 1247 ng/mlDDU (0-230) H 03/30/17 21:58 pCO2 44 mm/Hg (35-45) 03/30/17 22:47 pO2 86 mm/Hg (80-100) 03/30/17 22:47 HCO3 29.4 mmol/L (21-28) H 03/30/17 22:47 ABG pH 7.45 (7.35-7.45) 03/30/17 22:47 ABG Total CO2 32.0 mmol/L (22-28) H 03/30/17 22:47 ABG O2 Saturation 100.0 % (95-98) H 03/30/17 22:47 ABG Base Excess 5.8 mmol/L (-2.0-3.0) H 03/30/17 22:47 Pedro Test Yes 03/30/17 22:47 ABG Potassium 3.6 mmol/L (3.6-5.2) 03/30/17 22:47 VBG pH 7.42 (7.32-7.43) 03/30/17 21:46 VBG pCO2 50 mmHg (40-60) 03/30/17 21:46 VBG HCO3 29.8 mmol/L 03/30/17 21:46 VBG Total CO2 33.9 mmol/L (22-28) H 03/30/17 21:46 VBG O2 Sat (Calc) 87.8 % (40-65) H 03/30/17 21:46 VBG Base Excess 6.7 mmol/L (0.0-2.0) H 03/30/17 21:46 VBG Potassium 3.8 mmol/L (3.6-5.2) 03/30/17 21:46 A-a O2 Difference 144.0 mm/Hg 03/30/17 22:47 Sodium 134.0 mmol/L (132-148) 03/30/17 22:47 Chloride 97.0 mmol/L (98-107) L 03/30/17 22:47 Glucose 144 mg/dL (65-105) H 03/30/17 22:47 Lactate 1.4 mmol/L (0.7-2.1) 03/30/17 22:47 FiO2 40.0 % 03/30/17 22:47 Sodium 139 mmol/l (132-148) 04/05/17 06:50 Potassium 3.3 MMOL/L (3.6-5.0) L 04/05/17 06:50 Chloride 102 mmol/L (98-107) 04/05/17 06:50 Carbon Dioxide 30 mmol/L (22-30) 04/05/17 06:50 Anion Gap 10 (10-20) 04/05/17 06:50 BUN 8 mg/dl (7-17) 04/05/17 06:50 Creatinine 1.0 mg/dl (0.7-1.2) 04/05/17 06:50 Est GFR ( Amer) > 60 04/05/17 06:50 Est GFR (Non-Af Amer) 53 04/05/17 06:50 POC Glucose (mg/dL) 76 mg/dL (65-110) 04/05/17 15:26 Random Glucose 82 mg/dL (65-105) 04/05/17 06:50 Lactic Acid 1.8 MMOL/L (0.7-2.1) 03/31/17 06:55 Calcium 7.9 mg/dL (8.4-10.2) L 04/05/17 06:50 Phosphorus 3.7 mg/dl (2.5-4.5) 04/04/17 06:15 Magnesium 1.3 MG/DL (1.6-2.3) L 04/04/17 06:15 Total Bilirubin 0.4 mg/dl (0.2-1.3) 04/02/17 05:10 AST 27 U/L (14-36) 04/02/17 05:10 ALT 30 U/L (9-52) 04/02/17 05:10 Alkaline Phosphatase 93 U/L (38-126) 04/02/17 05:10 Troponin I 0.5100 ng/mL (0.00-0.120) H* 03/31/17 12:35 Total Protein 5.5 G/DL (6.3-8.2) L 04/02/17 05:10 Albumin 2.4 g/dL (3.5-5.0) L 04/02/17 05:10 Globulin 3.1 gm/dL (2.2-3.9) 04/02/17 05:10 Albumin/Globulin Ratio 0.8 (1.0-2.1) L 04/02/17 05:10 NT-Pro-B Natriuret Pep 4010 pg/ml (0-900) H 04/03/17 04:55 Procalcitonin 0.29 NG/ML (0.19-0.49) 04/04/17 06:15 Arterial Blood Potassium 3.6 mmol/L (3.6-5.2) 03/30/17 22:47 Venous Blood Potassium 3.8 mmol/L (3.6-5.2) 03/30/17 21:46 Urine Color Yellow (YELLOW) 03/31/17 01:43 Urine Clarity Cloudy (Clear) 03/31/17 01:43 Urine pH 5.0 (5.0-8.0) 03/31/17 01:43 Ur Specific [place] 1.020 (1.003-1.030) 03/31/17 01:43 Urine Protein 100 mg/dL (NEGATIVE) 03/31/17 01:43 Urine Glucose (UA) Neg mg/dL (Normal) 03/31/17 01:43 Urine Ketones Trace mg/dL (NEGATIVE) 03/31/17 01:43 Urine Blood Negative (NEGATIVE) 03/31/17 01:43 Urine Nitrate Negative (NEGATIVE) 03/31/17 01:43 Urine Bilirubin Negative (NEGATIVE) 03/31/17 01:43 Urine Urobilinogen 0.2-1.0 mg/dL (0.2-1.0) 03/31/17 01:43 Ur Leukocyte Esterase Trace [place]/uL (Negative) 03/31/17 01:43 Urine RBC (Auto) 3 /hpf (0-3) 03/31/17 01:43 Urine Microscopic WBC 6 /hpf (0-5) H 03/31/17 01:43 Ur Squamous Epith Cells 1 /hpf (0-5) 03/31/17 01:43 Vancomycin Trough 24.1 ug/mL (5.0-10.0) H 04/01/17 20:30 Influenza Typ A,B (EIA) Negative for flu a/b (NEGATIVE) 03/30/17 21:59 - Hospital Course Hospital Course: 81 y/o woman w/ pmh of Dementia, NIDDM, Hypercholesterolemia, Pleural effusions , COPD, HTN, admitted for sepsis 2/2 pneumonia. Patient was initially in ICU due to sepsis and then downgraded to MedSurg upon resolution. Patient initially treated w/ vanc and zosyn but then switched to clinda and zosyn. Patient's CXR remains stable with left lung base opacity. Patient initially had leukocytosis which has resolved. Patient demonstrates chronic PE and has been on therapeutic lovenox. Patient on modified diet of puree and thin fluids. Patient to be discharged to alf care facility, [facility]. Discharge Exam - Head Exam Head Exam: ATRAUMATIC, NORMAL INSPECTION, NORMOCEPHALIC - Eye Exam Eye Exam: Normal appearance - ENT Exam ENT Exam: Mucous Membranes Moist - Neck Exam Neck exam: Full Rom - Respiratory Exam Respiratory Exam: Rales, Rhonchi. absent: Wheezes, Respiratory Distress - Cardiovascular Exam Cardiovascular Exam: absent: Tachycardia - GI/Abdominal Exam GI & Abdominal Exam: Normal Bowel Sounds, Soft. absent: Distended, Tenderness - Extremities Exam Extremities exam: normal inspection - Neurological Exam Neurological exam: Alert - Skin Skin Exam: Dry, Normal Color Discharge Plan - Discharge Medications Prescriptions: Amoxicillin/Clavulanate [Augmentin 875 MG-125 MG] 1 tab PO BID 7 Days #14 tab Clindamycin [Cleocin] 300 mg PO BID 7 Days #14 cap Levothyroxine [Synthroid] 25 mcg PO DAILY #30 tab PARoxetine [Paxil] 30 mg PO DAILY #30 tab Rivaroxaban [Xarelto] 15 mg PO Q12 21 Days #42 tab Rivaroxaban [Xarelto] 20 mg PO DAILY 180 Days #180 tab - Follow Up Plan Condition: STABLE Disposition: REHAB FACILITY/REHAB UNIT Instructions: Sepsis (DC), Sepsis (GEN), Pneumonia (DC) Referrals: Earl Gaspar MD [Staff Provider] - Eddie Holm MD [Family Provider] - Padilla Kasper MD [Staff Provider] - Tj Guzmán MD [Medical Doctor] - <Eddie Holm - Last Filed: 04/08/17 07:11> Provider - Provider Date of Admission: 03/30/17 23:00 Attending physician: Eddie Holm MD Hospital Course - Lab Results Lab Results: Micro Results 04/03/17 05:20 Naris MRSA Culture (Admit) - Final MRSA NOT DETECTED 03/30/17 21:47 Blood Blood Culture - Final NO GROWTH AFTER 5 DAYS 03/30/17 21:47 Blood Gram Stain - Final TEST NOT PERFORMED 03/30/17 00:05 Blood Blood Culture - Final NO GROWTH AFTER 5 DAYS 03/30/17 00:05 Blood Gram Stain - Final TEST NOT PERFORMED 03/31/17 11:00 Nose MRSA Culture (Admit) - Final MRSA NOT DETECTED 03/31/17 10:40 Urine Urine Culture - Final No Growth (<1,000 CFU/ML) Most Recent Lab Values WBC 8.4 K/uL (4.8-10.8) 04/05/17 06:50 RBC 3.97 Mil/uL (3.80-5.20) 04/05/17 06:50 Hgb 10.2 g/dL (12.0-16.0) L 04/05/17 06:50 Hct 32.2 % (34.0-47.0) L 04/05/17 06:50 MCV 81.0 fl (81.0-99.0) 04/05/17 06:50 MCH 25.8 pg (27.0-31.0) L 04/05/17 06:50 MCHC 31.8 g/dL (33.0-37.0) L 04/05/17 06:50 RDW 16.9 % (11.5-14.5) H 04/05/17 06:50 Plt Count 338 K/uL (130-400) 04/05/17 06:50 MPV 8.3 fl (7.2-11.7) 03/31/17 08:00 Neut % (Auto) 76.8 % (50.0-75.0) H 03/31/17 08:00 Lymph % (Auto) 14.2 % (20.0-40.0) L 03/31/17 08:00 [place] % (Auto) 7.7 % (0.0-10.0) 03/31/17 08:00 Eos % (Auto) 0.8 % (0.0-4.0) 03/31/17 08:00 Baso % (Auto) 0.5 % (0.0-2.0) 03/31/17 08:00 Neut # 12.3 K/uL (1.8-7.0) H 03/31/17 08:00 Lymph # 2.3 K/uL (1.0-4.3) 03/31/17 08:00 [place] # 1.2 K/uL (0.0-0.8) H 03/31/17 08:00 Eos # 0.1 K/uL (0.0-0.7) 03/31/17 08:00 Baso # 0.1 K/uL (0.0-0.2) 03/31/17 08:00 PT 13.3 Seconds (9.8-13.1) H 03/30/17 21:58 INR 1.2 (0.9-1.2) 03/30/17 21:58 APTT 32.0 Seconds (25.6-37.1) 03/30/17 21:58 D-Dimer, Quantitative 1247 ng/mlDDU (0-230) H 03/30/17 21:58 pCO2 44 mm/Hg (35-45) 03/30/17 22:47 pO2 86 mm/Hg (80-100) 03/30/17 22:47 HCO3 29.4 mmol/L (21-28) H 03/30/17 22:47 ABG pH 7.45 (7.35-7.45) 03/30/17 22:47 ABG Total CO2 32.0 mmol/L (22-28) H 03/30/17 22:47 ABG O2 Saturation 100.0 % (95-98) H 03/30/17 22:47 ABG Base Excess 5.8 mmol/L (-2.0-3.0) H 03/30/17 22:47 Pedro Test Yes 03/30/17 22:47 ABG Potassium 3.6 mmol/L (3.6-5.2) 03/30/17 22:47 VBG pH 7.42 (7.32-7.43) 03/30/17 21:46 VBG pCO2 50 mmHg (40-60) 03/30/17 21:46 VBG HCO3 29.8 mmol/L 03/30/17 21:46 VBG Total CO2 33.9 mmol/L (22-28) H 03/30/17 21:46 VBG O2 Sat (Calc) 87.8 % (40-65) H 03/30/17 21:46 VBG Base Excess 6.7 mmol/L (0.0-2.0) H 03/30/17 21:46 VBG Potassium 3.8 mmol/L (3.6-5.2) 03/30/17 21:46 A-a O2 Difference 144.0 mm/Hg 03/30/17 22:47 Sodium 134.0 mmol/L (132-148) 03/30/17 22:47 Chloride 97.0 mmol/L (98-107) L 03/30/17 22:47 Glucose 144 mg/dL (65-105) H 03/30/17 22:47 Lactate 1.4 mmol/L (0.7-2.1) 03/30/17 22:47 FiO2 40.0 % 03/30/17 22:47 Sodium 139 mmol/l (132-148) 04/05/17 06:50 Potassium 3.3 MMOL/L (3.6-5.0) L 04/05/17 06:50 Chloride 102 mmol/L (98-107) 04/05/17 06:50 Carbon Dioxide 30 mmol/L (22-30) 04/05/17 06:50 Anion Gap 10 (10-20) 04/05/17 06:50 BUN 8 mg/dl (7-17) 04/05/17 06:50 Creatinine 1.0 mg/dl (0.7-1.2) 04/05/17 06:50 Est GFR ( Amer) > 60 04/05/17 06:50 Est GFR (Non-Af Amer) 53 04/05/17 06:50 POC Glucose (mg/dL) 81 mg/dL (65-110) 04/05/17 21:10 Random Glucose 82 mg/dL (65-105) 04/05/17 06:50 Lactic Acid 1.8 MMOL/L (0.7-2.1) 03/31/17 06:55 Calcium 7.9 mg/dL (8.4-10.2) L 04/05/17 06:50 Phosphorus 3.7 mg/dl (2.5-4.5) 04/04/17 06:15 Magnesium 1.3 MG/DL (1.6-2.3) L 04/04/17 06:15 Total Bilirubin 0.4 mg/dl (0.2-1.3) 04/02/17 05:10 AST 27 U/L (14-36) 04/02/17 05:10 ALT 30 U/L (9-52) 04/02/17 05:10 Alkaline Phosphatase 93 U/L (38-126) 04/02/17 05:10 Troponin I 0.5100 ng/mL (0.00-0.120) H* 03/31/17 12:35 Total Protein 5.5 G/DL (6.3-8.2) L 04/02/17 05:10 Albumin 2.4 g/dL (3.5-5.0) L 04/02/17 05:10 Globulin 3.1 gm/dL (2.2-3.9) 04/02/17 05:10 Albumin/Globulin Ratio 0.8 (1.0-2.1) L 04/02/17 05:10 NT-Pro-B Natriuret Pep 4010 pg/ml (0-900) H 04/03/17 04:55 Procalcitonin 0.29 NG/ML (0.19-0.49) 04/04/17 06:15 Arterial Blood Potassium 3.6 mmol/L (3.6-5.2) 03/30/17 22:47 Venous Blood Potassium 3.8 mmol/L (3.6-5.2) 03/30/17 21:46 Urine Color Yellow (YELLOW) 03/31/17 01:43 Urine Clarity Cloudy (Clear) 03/31/17 01:43 Urine pH 5.0 (5.0-8.0) 03/31/17 01:43 Ur Specific [place] 1.020 (1.003-1.030) 03/31/17 01:43 Urine Protein 100 mg/dL (NEGATIVE) 03/31/17 01:43 Urine Glucose (UA) Neg mg/dL (Normal) 03/31/17 01:43 Urine Ketones Trace mg/dL (NEGATIVE) 03/31/17 01:43 Urine Blood Negative (NEGATIVE) 03/31/17 01:43 Urine Nitrate Negative (NEGATIVE) 03/31/17 01:43 Urine Bilirubin Negative (NEGATIVE) 03/31/17 01:43 Urine Urobilinogen 0.2-1.0 mg/dL (0.2-1.0) 03/31/17 01:43 Ur Leukocyte Esterase Trace [place]/uL (Negative) 03/31/17 01:43 Urine RBC (Auto) 3 /hpf (0-3) 03/31/17 01:43 Urine Microscopic WBC 6 /hpf (0-5) H 03/31/17 01:43 Ur Squamous Epith Cells 1 /hpf (0-5) 03/31/17 01:43 Vancomycin Trough 24.1 ug/mL (5.0-10.0) H 04/01/17 20:30 Influenza Typ A,B (EIA) Negative for flu a/b (NEGATIVE) 03/30/17 21:59 Attending/Attestation - Attestation I have personally seen and examined this patient.: Yes I have fully participated in the care of the patient.: Yes I have reviewed all pertinent clinical information, including history, physical exam and plan: Yes
[2017-04-05 16:40] VITALS: BP 145/70; PULSE 96; TEMP 98.5; O2SAT 95
[2017-04-05] MEDS ORDERED: Clindamycin 600mg/50ml NS 600 MG/50 ML BAG IVPB SCH (17:00)
== END 2017-04-05 21:50 | DRG 871 ==
LOC: H.ER 20:50 → H.ERHOLD 23:00 → H.ICU/CCU 03-31 03:01 → H.MEDSURG1 04-03 22:10
PROVIDERS: ADMIT Family Medicine; ATTEND Family Medicine
PROC: 3E0234Z Introduction of Serum, Toxoid and Vaccine into Muscle, Percutaneous Approach (ICD-10-PCS; principal; 2017-03-31)
DX: A41.9 Sepsis, unspecified organism (principal); J69.0 Pneumonitis due to inhalation of food and vomit; I13.0 Hypertensive heart and chronic kidney disease with heart failure and stage 1 through stage 4 chronic kidney disease, or unspecified chronic kidney disease; G92 Toxic encephalopathy; J18.9 Pneumonia, unspecified organism; I27.82 Chronic pulmonary embolism; E11.22 Type 2 diabetes mellitus with diabetic chronic kidney disease; I50.9 Heart failure, unspecified; J98.11 Atelectasis; E86.1 Hypovolemia; E03.9 Hypothyroidism, unspecified; E78.00 Pure hypercholesterolemia, unspecified; E78.5 Hyperlipidemia, unspecified; F03.90 Unspecified dementia, unspecified severity, without behavioral disturbance, psychotic disturbance, mood disturbance, and anxiety; I25.10 Atherosclerotic heart disease of native coronary artery without angina pectoris; J44.9 Chronic obstructive pulmonary disease, unspecified; Y95 Nosocomial condition; Z74.01 Bed confinement status; Z99.81 Dependence on supplemental oxygen; Z23 Encounter for immunization; M17.0 Bilateral primary osteoarthritis of knee; N18.3 Chronic kidney disease, stage 3 (moderate); E87.6 Hypokalemia; E83.42 Hypomagnesemia; F32.9 Major depressive disorder, single episode, unspecified; F41.9 Anxiety disorder, unspecified

== ENCOUNTER 2018-02-18 14:30 | Observation (INO) | payer MEDICARE, MEDICAID ==
[2018-02-18 14:30] VITALS: BMI 34.3
[2018-02-18] MEDS ORDERED: Sodium Chloride 0.9% 1,000 ML IV STA (15:14)
--- NOTE | 2018-02-18 15:31 | ED PDOC ---
HPI: Abdomen Additional Complaint(s): Hx taken from daughter as patient has hx dementia and French speaking CC: Diarrhea and poor po intake HPI: 82 year old female with PMHx of Dementia, NIDDM, Hypercholesterolemia, COPD, and HTN, presents to ED brought in by her daughter with c/o diarrhea, poor PO intake and hallucination x 1 week. Daughter reports patient has 1-2 episodes of watery diarrhea daily for >1 month, was seen by Dr. Holm about a month ago and given abx and imodium for diarrhea. States for last 1 weeks, diarrhea has worsen 2-3 episodes daily with poor po intake. States patient has been hallucinating stating "they are gonna kill me" and "they are coming down to take me". Patient has hx dementia but denies any hx psychiatric illness. Has hx abx use (Augmentin and Clindamycin) in 04/2017. No recent travel or sick contact. Of note, home health aide reports patient has left ear discharge for 4 day. Patient denies any abdominal pain, nausea, vomiting, ear pain, headache, cough, chest pain, dyspnea, fever or chills. PMD: Dr Holm Allergies: Ambien PMHx: COPD (oxygen dependent), Diabetes, HTN, Arthritis, Anxiety, Hypothyroid PSHx: Cholecystectomy <Sultan Elinor - Last Filed: 02/18/18 19:05> <Abram Green III - Last Filed: 02/18/18 19:34> Time Seen by Provider: 02/18/18 14:47 Chief Complaint (Nursing): GI Problem Supervising Attending Note - Attestation: I have personally seen and examined this patient.: Yes I have fully participated in the care of the patient.: Yes I have reviewed all pertinent clinical information: Yes - Notes: Notes:: pt seen and examined, agree w resident findings, also Dr Gaston took part in care prior to my accepting patient at 4pm. 82yo with continuous diarrhea, recent antibiotic use, now change in mental status per family with intermittent hallucinations CT brain and Abd pelv performed, labwork performed, CDiff ordered and pending, maintain contact isol, continue gentle IVF. PO Vanco started empirically. Prior meds reviewed, include xanax which could be contributing to AMS. Admit medicine Dr Mendez aware, likely needs geropsych consult. <Abram Green III - Last Filed: 02/18/18 19:34> Past Medical History Vital Signs: Last Vital Signs Temp 98.3 F 02/18/18 14:33 Pulse 81 02/18/18 14:52 Resp 18 02/18/18 14:52 BP 157/95 H 02/18/18 14:52 Pulse Ox 98 02/18/18 14:52 - Medical History PMH: Anxiety, Arthritis (BOTH KNEES), CAD, COPD, Dementia, Depression, Diabetes, HTN (NOT ON ANY MEDS), Hypercholesterolemia (NOT ON ANY MEDS), Hypothyroidism, Pneumonia, End Stage Renal Disease, Chronic Kidney Disease, Seizures Denies: Atrial Fibrillation, Cardia Arrhythmia, CHF, HIV, Mitral Valve P rolapse, Peripheral Edema - Surgical History Surgical History: Cholecystectomy Denies: Pacemaker - Family History Family History: States: Unknown Family Hx - Immunization History Hx Tetanus Toxoid Vaccination: Yes <Sultan Elinor - Last Filed: 02/18/18 19:05> Vital Signs: Last Vital Signs Temp 98.3 F 02/18/18 14:33 Pulse 81 02/18/18 14:52 Resp 18 02/18/18 14:52 BP 157/95 H 02/18/18 14:52 Pulse Ox 98 02/18/18 19:05 <Abram Green III - Last Filed: 02/18/18 19:34> - Home Medications Home Medications: Ambulatory Orders Medication Instructions Recorded Allopurinol [Zyloprim] 100 mg PO DAILY 02/18/18 Alprazolam [Xanax] 0.5 mg PO HS 02/18/18 Furosemide [Lasix] 20 mg PO DAILY 02/18/18 Levothyroxine [Synthroid] 25 mcg PO DAILY 02/18/18 Losartan [Cozaar] 100 mg PO DAILY 02/18/18 Montelukast [Singulair] 10 mg PO DAILY 02/18/18 Paroxetine HCl [Paxil] 40 mg PO DAILY 02/18/18 Potassium Chloride [K-Tab ER] 20 meq PO DAILY 02/18/18 Simvastatin [Zocor] 40 mg PO DAILY 02/18/18 metFORMIN [glucOPHAGE] 500 mg PO BID 02/18/18 - Allergies Allergies/Adverse Reactions: Allergies Allergy/AdvReac Type Severity Reaction Status Date / Time ambien AdvReac Severe HEADACHE Uncoded 02/18/18 14:33 Review of Systems ROS Statement: Except As Marked, All Systems Reviewed And Found Negative <[place] - Last Filed: 02/18/18 19:05> Physical Exam - Physical Exam Appears: Positive for: Non-toxic, No Acute Distress Head Exam: Positive for: ATRAUMATIC, NORMOCEPHALIC Skin: Positive for: Normal Color ENT: Positive for: TM Is/Are (Right ear canal clear with TM visible ( no erythema or effusion of right TM). Left ear canal is narrow with yellow crusting at the proximal canal. Left TM not visualized.) Neck: Positive for: Normal Cardiovascular/Chest: Positive for: Regular Rate, Rhythm Respiratory: Positive for: Normal Breath Sounds. Negative for: Crackles, Rales, Rhonchi, Wheezing Gastrointestinal/Abdominal: Positive for: Bowel Sounds, Soft, Distended (likely due to obesity). Negative for: Tenderness, Guarding, Rebound Extremity: Positive for: Pedal Edema (1+). Negative for: Calf Tenderness Neurologic/Psych: Positive for: Alert, Oriented <[place]ultan - Last Filed: 02/18/18 19:05> - Laboratory Results Result Diagrams: 02/18/18 16:06 02/18/18 16:06 - ECG O2 Sat by Pulse Oximetry: 98 - Progress ED Course And Treament: 3:25 pm 82 year old female has diarrhea, poor oral intake and hallucination. Plan: CBC W/ DIFF CMP Mg Phos PT/INR CXR CT abdomen and pelvis CXR Blood cx Stool cx C. Diff toxins Stool lactoferin IVF's NS @100 cc/hr Plan d/w Dr. Gaston 6:01 pm Patient's WBC is 13.4 with left shift. CMP is WNL CT of abdomen and pelvis: IMPRESSION: Segmental circumferential mural thickening in the distal descending colon and hepatic flexure could be related to underdistention however could also represent nonspecific acute infectious/inflammatory colitis. No bowel obstruction. Interval mild increase in size of known 7.8 x 6.7 cm heterogeneously enhancing low density mass in the head of the pancreas. Head CT W/O contrast: IMPRESSION: No acute intracranial abnormality. Mild age-related global parenchymal volume loss. Will start with vacomycin 125 mg po to empirically cover for C. difficile Case discussed with Dr. Mendez. Patient will be admitted to med/surg for colitis, pending C. difficile result, AMS and clinical dehydration. Recommended psychiatry consult for hallucination. Plan discussed with Dr. Norma Aldrich, [id number] <Sultan Elinor - Last Filed: 02/18/18 19:05> - Laboratory Results Result Diagrams: 02/18/18 16:06 02/18/18 16:06 <Abram Green III - Last Filed: 02/18/18 19:34> Disposition - Patient ED Disposition Is Patient to be Admitted: Yes Discussed With : Ari Mendez - Disposition Disposition Time: 19:04 <Sultan Elinor - Last Filed: 02/18/18 19:05> <Abram Green III - Last Filed: 02/18/18 19:34> - Clinical Impression Clinical Impression: Diarrhea, Dehydration, Altered mental status - Disposition Condition: FAIR Forms: [employer] (Mal[place]ian)
[2018-02-18] MEDS ORDERED: Iohexol 300 100 ML IJ ONE (15:47)
[2018-02-18] MEDS ORDERED: Sodium Chloride 0.9% 50 ML IV ONE (15:48)
[2018-02-18 16:13] LABS: BASO # 0.2 K/uL (0.0-0.2); BASO % 1.5 % (0.0-2.0); EOS # 0.2 K/uL (0.0-0.7); EOS % 1.5 % (0.0-4.0); LYMPH # 2.2 K/uL (1.0-4.3); LYMPH % 16.1 % (20.0-40.0); MEAN CELL VOLUME 81.5 fl (81.0-99.0); MEAN CORPUSCULAR HEMOGLOBIN 25.2 pg (27.0-31.0); MEAN PLATELET VOLUME 7.5 fl (7.2-11.7); MONO # 0.5 K/uL (0.0-0.8); NEUT # 10.3 K/uL (1.8-7.0); NEUT % 76.9 % (50.0-75.0); RBC 4.75 Mil/uL (3.80-5.20); RED CELL DISTRIBUTION WIDTH 17.8 % (11.5-14.5); WHITE BLOOD COUNT 13.4 K/uL (4.8-10.8)
[2018-02-18 16:18] LABS: PROTHROMBIN TIME 11.9 Seconds (9.8-13.1)
[2018-02-18 16:21] LABS: PARTIAL THROMBOPLASTIN TIME 32.5 Seconds (25.6-37.1)
--- NOTE | 2018-02-18 16:32 | RAD ---
Date of service: 02/18/2018 HISTORY: Diarrhea COMPARISON: 04/05/2017 FINDINGS: LUNGS: The lungs are well inflated and clear. PLEURA: No large right pleural effusion. No pneumothorax. Left pleural effusion versus pleural thickening. CARDIOVASCULAR: There is mild cardiomegaly. Atherosclerotic aortic arch calcifications are present. OSSEOUS STRUCTURES: Within normal limits for the patient's age. VISUALIZED UPPER ABDOMEN: Normal. OTHER FINDINGS: None. IMPRESSION: Little interval change in left small pleural effusion versus pleural thickening. Persistent mild cardiomegaly.
[2018-02-18 16:52] LABS: ALB/GLOB RATIO 0.9 (1.0-2.1); ALBUMIN 3.2 g/dL (3.5-5.0); ALT/SGPT 21 U/L (9-52); AST/SGOT 25 U/L (14-36); BLOOD UREA NITROGEN 17 mg/dl (7-17); CALCIUM 8.7 mg/dL (8.4-10.2); GFR NON-AFRICAN AMERICAN 60
--- NOTE | 2018-02-18 17:42 | CT ---
Date of service: 02/18/2018 PROCEDURE: CT HEAD WITHOUT CONTRAST. HISTORY: AMS, recent hallucination COMPARISON: 05/11/2016. TECHNIQUE: Axial computed tomography images were obtained through the head/brain without intravenous contrast. Radiation dose: Total exam DLP = 873.66 mGy-cm. This CT exam was performed using one or more of the following dose reduction techniques: Automated exposure control, adjustment of the mA and/or kV according to patient size, and/or use of iterative reconstruction technique. FINDINGS: HEMORRHAGE: No intracranial hemorrhage. BRAIN: Anaya-white matter differentiation is preserved. There is no mass, mass effect or abnormal extra-axial fluid collection. There is no territorial infarction. The midline sagittal structures are normal.There are coarse atherosclerotic calcifications in the cavernous carotid arteries. VENTRICLES: There is mild age-related global parenchymal volume loss and proportionate enlargement of the ventricles and cortical sulci. CALVARIUM: There is no calvarial fracture or extracranial soft tissue swelling. PARANASAL SINUSES: Predominantly clear. MASTOID AIR CELLS: Predominantly clear. OTHER FINDINGS: None. IMPRESSION: No acute intracranial abnormality. Mild age-related global parenchymal volume loss.
--- NOTE | 2018-02-18 17:55 | CT ---
Date of service: 02/18/2018 PROCEDURE: CT Abdomen and Pelvis with contrast HISTORY: Diarrhea COMPARISON: 03/20/2017. TECHNIQUE: CT scan of the abdomen and pelvis was performed after administration of intravenous contrast. Oral contrast was not administered. Coronal and sagittal reformatted images were obtained. Contrast dose: 95 mL Omnipaque 300 Radiation dose: Total exam DLP = 884.38 mGy-cm. This CT exam was performed using one or more of the following dose reduction techniques: Automated exposure control, adjustment of the mA and/or kV according to patient size, and/or use of iterative reconstruction technique. FINDINGS: LOWER THORAX: Small pleural effusions, larger on the right. Moderate cardiomegaly and small pericardial effusion. LIVER: Normal in size with homogeneous enhancement. Fatty liver. No gross lesion or ductal dilatation. GALLBLADDER AND BILE DUCTS: Surgically absent. PANCREAS: There is interval increase in size of 7.8 x 6.7 cm heterogeneously enhancing predominantly hypodense mass in the head of the pancreas.. No gross lesion or ductal dilatation. SPLEEN: Normal in size and appearance. ADRENALS: No discrete nodule. KIDNEYS AND URETERS: Normal in size with homogeneous enhancement. No hydronephrosis. No solid mass. VASCULATURE: No aortic aneurysm. There are atherosclerotic aortoiliac calcifications present. BOWEL: Evaluation of the bowel is limited in the absence of oral contrast. The small bowel loops are normal in caliber. Six there is segmental circumferential mural thickening in the distal ascending colon and hepatic flexure. There is moderate amount of stool in the remaining colon. There are scattered colonic diverticula without CT evidence for acute diverticulitis. No bowel wall thickening or obstruction. APPENDIX: Normal appendix. PERITONEUM: No free fluid. No free air. LYMPH NODES: No enlarged lymph nodes. BLADDER: Well distended and normal in appearance. REPRODUCTIVE: The uterus is normal in size. There is a stable 3.0 cm simple cyst in the left ovary. BONES: No acute fracture. Within normal limits for the patient's age. Old fracture deformity in the superior endplate of the L4 vertebral body. OTHER FINDINGS: There is a small sliding hiatal hernia. IMPRESSION: Segmental circumferential mural thickening in the distal descending colon and hepatic flexure could be related to underdistention however could also represent nonspecific acute infectious/inflammatory colitis. No bowel obstruction. Interval mild increase in size of known 7.8 x 6.7 cm heterogeneously enhancing low density mass in the head of the pancreas.
[2018-02-18] MEDS ORDERED: Vancomycin 500 mg (Oral/Rectal USE) PO STA (18:09)
--- NOTE | 2018-02-18 19:20 | CP.PCM.HP ---
<Priyank Rollinslogan - Last Filed: 02/18/18 20:24> History of Present Illness - History of Present Illness History of Present Illness: 82 year old female with PMHx of Dementia, NIDDM, HLD, COPD, and HTN, presents to ED brought in by her daughter with c/o diarrhea, poor PO intake and hallucination x 1 week. Daughter reports patient has 1-2 episodes of watery/dark diarrhea daily for >1 month, she denies blood or mucus in the stools. She was seen by Dr. Infante about a month ago and given abx and imodium for diarrhea. Diarrhea has worsen to 2-3 episodes daily in the last week. Also patient states auditory hallucinations stating "they are gonna kill me" and "they are coming down to take me". Patient has hx dementia but denies any hx psychiatric illness, she is AAO x3. Has hx abx use (Augmentin and Clindamycin) in 04/2017. Patient denies any abdominal pain, nausea, vomiting, ear pain, headache, cough, chest pain, dyspnea, fever or chills. No recent travel or sick contacts. PMD: Dr Infante PMHx: COPD (oxygen dependent), Diabetes, HTN, Arthritis, Anxiety, Hypothyroidism Meds: as bellow PSHx: Cholecystectomy, pituitary gland mass (~3 yrs ago) Allergies: Ambien FMH: unknown Present on Admission - Present on Admission Any Indicators Present on Admission: No Review of Systems - Review of Systems All systems: reviewed and no additional remarkable complaints except (HPI) Past Patient History - Past Medical History & Family History Past Medical History?: Yes - Past Social History Smoking Status: Never Smoked - CARDIAC Hx Atrial Fibrillation: No Hx Cardia Arrhythmia: No Hx Congestive Heart Failure: No Hx Hypercholesterolemia: Yes (NOT ON ANY MEDS) Hx Hypertension: Yes (NOT ON ANY MEDS) Hx Mitral Valve Prolapse: No Hx Pacemaker: No Hx Peripheral Edema: No - PULMONARY Hx Chronic Obstructive Pulmonary Disease (COPD): Yes Hx Pneumonia: Yes - NEUROLOGICAL Hx Dementia: Yes Hx Seizures: Yes - HEENT Hx HEENT Problems: Yes - RENAL Hx Chronic Kidney Disease: Yes - ENDOCRINE/METABOLIC Hx Hypothyroidism: Yes - HEMATOLOGICAL/ONCOLOGICAL Hx Human Immunodeficiency Virus (HIV): No - INTEGUMENTARY Hx Dermatological Problems: No - MUSCULOSKELETAL/RHEUMATOLOGICAL Hx Arthritis: Yes (BOTH KNEES) - GASTROINTESTINAL Hx Gastrointestinal Disorders: No - GENITOURINARY/GYNECOLOGICAL Hx Genitourinary Disorders: No - PSYCHIATRIC Hx Anxiety: Yes Hx Depression: Yes - SURGICAL HISTORY Hx Cholecystectomy: Yes - ANESTHESIA Hx Anesthesia: Yes Hx Anesthesia Reactions: No Hx Malignant Hyperthermia: No Meds Allergies/Adverse Reactions: Allergies Allergy/AdvReac Type Severity Reaction Status Date / Time ambien AdvReac Severe HEADACHE Uncoded 02/18/18 14:33 Physical Exam - Constitutional Appears: No Acute Distress - Head Exam Head Exam: NORMAL INSPECTION - Eye Exam Eye Exam: EOMI Pupil Exam: PERRL - ENT Exam ENT Exam: Mucous Membranes Dry - Respiratory Exam Respiratory Exam: Clear to Auscultation Bilateral, NORMAL BREATHING PATTERN - Cardiovascular Exam Cardiovascular Exam: REGULAR RHYTHM, +S1, +S2. absent: Tachycardia - GI/Abdominal Exam GI & Abdominal Exam: Distended (mild), Normal Bowel Sounds. absent: Guarding, Tenderness - Extremities Exam Extremities exam: Negative for: pedal edema - Neurological Exam Neurological exam: Alert, CN II-XII Intact, Oriented x3 - Skin Skin Exam: Dry, Warm Results - Vital Signs Recent Vital Signs: Last Vital Signs Temp 98.3 F 02/18/18 14:33 Pulse 81 02/18/18 14:52 Resp 18 02/18/18 14:52 BP 157/95 H 02/18/18 14:52 Pulse Ox 98 02/18/18 19:05 - Labs Result Diagrams: 02/18/18 16:06 02/18/18 16:06 Labs: Laboratory Results - last 24 hr 02/18/18 02/18/18 02/18/18 15:00 16:06 16:06 WBC 13.4 H D RBC 4.75 Hgb 12.0 Hct 38.7 MCV 81.5 MCH 25.2 L MCHC 31.0 L RDW 17.8 H Plt Count 345 MPV 7.5 Neut % (Auto) 76.9 H Lymph % (Auto) 16.1 L [place] % (Auto) 4.0 Eos % (Auto) 1.5 Baso % (Auto) 1.5 Neut # (Auto) 10.3 H Lymph # (Auto) 2.2 [place] # (Auto) 0.5 Eos # (Auto) 0.2 Baso # (Auto) 0.2 PT 11.9 INR 1.0 APTT 32.5 Sodium Potassium Chloride Carbon Dioxide Anion Gap BUN Creatinine Est GFR ( Amer) Est GFR (Non-Af Amer) POC Glucose (mg/dL) 141 H Random Glucose Calcium Total Bilirubin AST ALT Alkaline Phosphatase Total Protein Albumin Globulin Albumin/Globulin Ratio 02/18/18 16:06 WBC RBC Hgb Hct MCV MCH MCHC RDW Plt Count MPV Neut % (Auto) Lymph % (Auto) [place] % (Auto) Eos % (Auto) Baso % (Auto) Neut # (Auto) Lymph # (Auto) [place] # (Auto) Eos # (Auto) Baso # (Auto) PT INR APTT Sodium 139 Potassium 4.7 Chloride 102 Carbon Dioxide 29 Anion Gap 13 BUN 17 Creatinine 0.9 Est GFR ( Amer) > 60 Est GFR (Non-Af Amer) 60 POC Glucose (mg/dL) Random Glucose 124 H Calcium 8.7 Total Bilirubin 0.3 AST 25 ALT 21 Alkaline Phosphatase 88 Total Protein 6.7 Albumin 3.2 L D Globulin 3.5 Albumin/Globulin Ratio 0.9 L Assessment & Plan - Assessment and Plan (Free Text) Assessment: 82 yo female patient with PMH of HTN, HLD, DM, hypothyroidism, dementia admitted with colitis and auditory hallucinations. Plan: Colitis, likely due to C diff - h/o prolonged and multiple abx use - afebrile, VSS - WBC 13.4 - Abd CT: Segmental circumferential mural thickening in the distal descending colon and hepatic flexure could be related to underdistention however could also represent nonspecific acute infectious/inflammatory colitis. No bowel obstruction. - s/p vanco 125mg PO once in ED - Continue vanco 125 PO q6h - GI consulted - c/ diff toxin pending - blood and stool cx - guaic stool - labs in am Auditory Hallucinations - h/o dementia - head CT: negative acute intracranial changes - AAO x3 on physical exam - Psych consult H/O pancreatic mass - Abd CT: Interval mild increase in size of known 7.8 x 6.7 cm heterogeneously enhancing low density mass in the head of the pancreas. - GI consulted NIDDM - Chronic, controlled - continue home meds - Accucheck - SSI ACHS - Hypoglycemia protocol HTN - chronic, stable - continue home meds Hx of Depression - C/W home meds for now - Psych consulted Hx of Hypothyroidism - c/w home meds - last TSH 03/2017 wnl Prophylaxis - DVT lovenox Case seen and examined with Dr Mendez. <Ari Mendez D - Last Filed: 02/21/18 12:31> Results - Vital Signs Recent Vital Signs: Last Vital Signs Temp 97.1 F L 02/20/18 08:41 Pulse 66 02/20/18 09:34 Resp 20 02/20/18 08:41 BP 137/74 02/20/18 09:36 Pulse Ox 97 02/20/18 08:41 - Labs Result Diagrams: 02/20/18 05:45 02/20/18 05:45 Attending/Attestation - Attestation I have personally seen and examined this patient.: Yes I have fully participated in the care of the patient.: Yes I have reviewed all pertinent clinical information: Yes Notes (Text): 02/21/18 12:31 Patient seen and examined with resident. Case discussed and agreed with assessment and plan of management.
[2018-02-18] MEDS: Vancomycin 500 mg (Oral/Rectal USE) PO SCH (23:30)
[2018-02-18] MEDS: Insulin Lispro (humaLOG) 100 Units/ml Inj SC SCH (23:37)
[2018-02-19] MEDS: Vancomycin 500 mg (Oral/Rectal USE) PO SCH ×3 (04:15→17:34)
[2018-02-19 06:06] LABS: BASO # 0.1 K/uL (0.0-0.2); EOS # 0.2 K/uL (0.0-0.7); EOS % 1.6 % (0.0-4.0); HEMOGLOBIN 10.9 g/dL (12.0-16.0); LYMPH # 2.2 K/uL (1.0-4.3); LYMPH % 15.1 % (20.0-40.0); MEAN CELL VOLUME 82.7 fl (81.0-99.0); MEAN CORPUSCULAR HEMOGLOBIN 25.7 pg (27.0-31.0); MEAN CORPUSCULAR HGB CONC 31.1 g/dL (33.0-37.0); MEAN PLATELET VOLUME 7.4 fl (7.2-11.7); MONO # 0.6 K/uL (0.0-0.8); MONO % 3.9 % (0.0-10.0); NEUT # 11.5 K/uL (1.8-7.0); NEUT % 78.4 % (50.0-75.0); NRBC % 0.1 % (0.0-0.0); RBC 4.25 Mil/uL (3.80-5.20); RED CELL DISTRIBUTION WIDTH 17.7 % (11.5-14.5); WHITE BLOOD COUNT 14.6 K/uL (4.8-10.8)
--- NOTE | 2018-02-19 06:09 | CARD ---
APPROVED REPORT Date of service: 02/18/2018 EKG Measurement Heart [id number] <Conclusion> Normal sinus rhythm Left axis deviation Right bundle branch block Inferior infarct, age undetermined Anterior infarct, age undetermined Abnormal ECG
[2018-02-19 06:18] LABS: BLOOD UREA NITROGEN 17 mg/dl (7-17); CALCIUM 8.2 mg/dL (8.4-10.2); GFR NON-AFRICAN AMERICAN 60
[2018-02-19] MEDS: Enoxaparin 40 mg Syringe SC SCH (09:03)
[2018-02-19] MEDS: Saccharomyces Boulardi 250 mg Cap PO SCH ×2 (09:05→17:33)
[2018-02-19] MEDS: Levothyroxine 25 MCG TAB PO SCH (09:09)
[2018-02-19] MEDS: Insulin Lispro (humaLOG) 100 Units/ml Inj SC SCH ×4 (09:11→23:49)
[2018-02-19] MEDS: Pantoprazole 40 mg EC Tab PO SCH (09:12)
--- NOTE | 2018-02-19 10:22 | CP.PCM.PN ---
Subjective - Date & Time of Evaluation Date of Evaluation: 02/19/18 Time of Evaluation: 09:20 - Subjective Subjective: Patient seen at bedside. Contact precautions in place. No acute events overnight, afebrile. Patient denies pain. C/o diarrhea for about 1 month, about 3 BM per day. Last BM Yesterday. C/o also of lack of appetite and generalized weakness during this period. Patient lives at home with granddaughter. Objective - Vital Signs/Intake and Output Vital Signs (last 24 hours): Temp Pulse Resp BP Pulse Ox 98.1 F 74 20 136/72 100 02/19/18 08:00 02/19/18 08:00 02/19/18 08:00 02/19/18 09:11 02/19/18 08:00 - Medications Medications: Current Medications Acetaminophen (Tylenol 325mg Tab) 650 mg PO Q6 PRN PRN Reason: Pain, moderate (4-7) Last Admin: 02/18/18 23:29 Dose: 650 mg Alprazolam (Xanax) 0.5 mg PO HS [facility] Last Admin: 02/18/18 23:28 Dose: 0.5 mg Cyanocobalamin (Vitamin B12 1000 Mcg/Ml Inj) 1,000 mcg IM DAILY [facility] Last Admin: 02/19/18 09:21 Dose: 1,000 mcg Enoxaparin Sodium (Lovenox) 40 mg SC DAILY [facility]; Protocol Last Admin: 02/19/18 09:03 Dose: 40 mg Furosemide (Lasix) 20 mg PO DAILY [facility] Last Admin: 02/19/18 09:11 Dose: 20 mg Ciprofloxacin (Cipro 400mg/200ml Dsw) 400 mg in 200 mls @ 200 mls/hr IVPB Q12 [facility]; Protocol Metronidazole (Flagyl 500mg/100ml Ns) 100 mls @ 100 mls/hr IVPB Q8 [facility]; Protocol Sodium Chloride (Sodium Chloride 0.9%) 1,000 mls @ 100 mls/hr IV .Q10H [facility] Stop: 02/20/18 09:34 Insulin Human Lispro (Humalog) 0 units SC ACCU-CHECK [facility]; Protocol Last Admin: 02/19/18 09:11 Dose: Not Given Levothyroxine Sodium (Synthroid) 25 mcg PO DAILY@0630 [facility] Last Admin: 02/19/18 09:09 Dose: 25 mcg Lisinopril (Zestril) 5 mg PO ONCE ONE Stop: 02/19/18 22:59 Last Admin: 02/18/18 23:28 Dose: 5 mg Losartan Potassium (Cozaar) 100 mg PO DAILY [facility] Last Admin: 02/19/18 09:04 Dose: 100 mg Montelukast Sodium (Singulair) 10 mg PO DAILY [facility] Last Admin: 02/19/18 09:11 Dose: 10 mg Pantoprazole Sodium (Protonix Ec Tab) 40 mg PO DAILY [facility] Last Admin: 02/19/18 09:12 Dose: 40 mg Paroxetine HCl (Paxil) 40 mg PO DAILY [facility] Last Admin: 02/19/18 09:12 Dose: 40 mg Saccharomyces Boulardii (Florastor) 250 mg PO BID [facility] Last Admin: 02/19/18 09:05 Dose: 250 mg Vancomycin HCl (Vancocin (Oral/Rectal Use)) 125 mg PO Q8 [facility]; Protocol Last Admin: 02/19/18 09:07 Dose: 125 mg - Labs Labs: 02/19/18 05:45 02/19/18 05:45 PT 11.9 Seconds (9.8-13.1) 02/18/18 16:06 INR 1.0 02/18/18 16:06 APTT 32.5 Seconds (25.6-37.1) 02/18/18 16:06 - Constitutional Appears: Non-toxic, Chronically Ill - Eye Exam Eye Exam: EOMI, PERRL - ENT Exam ENT Exam: Mucous Membranes Moist - Respiratory Exam Respiratory Exam: NORMAL BREATHING PATTERN. absent: Wheezes, Respiratory Distress - Cardiovascular Exam Cardiovascular Exam: absent: Bradycardia, Tachycardia, Gallop - GI/Abdominal Exam GI & Abdominal Exam: Soft, Normal Bowel Sounds. absent: Distended, Guarding, Rigid, Tenderness, Rebound - Extremities Exam Extremities Exam: Normal Capillary Refill. absent: Calf Tenderness, Pedal Edema - Neurological Exam Neurological Exam: Alert, Awake. absent: Oriented x3 - Psychiatric Exam Psychiatric exam: Normal Affect, Normal Mood - Skin Skin Exam: Pallor, Warm Assessment and Plan - Assessment and Plan (Free Text) Assessment: 82 yo female patient with PMH of HTN, HLD, DM, hypothyroidism, dementia admitted with colitis and auditory hallucinations. Plan: Chronic Diarrhea Unknown h/o multiple abx use afebrile, VSS Leukocytosis, mild Abd CT: Segmental circumferential mural thickening in the distal descending colon and hepatic flexure could be related to underdistention however could also represent nonspecific acute infectious/inflammatory colitis. No bowel obstruction. Infectious vs metabolic Continue vanco 125 PO q8h until C.Dif is ruled out. Contact precautions GI consulted: F/U recs Stop Metformin, Statins and Allopurinol for now O&P, Stool WBC ordered F/U UA Auditory Hallucinations h/o dementia head CT: negative acute intracranial changes AAO x3 on physical exam Psych consult. F/U recs H/O pancreatic mass Abd CT: Interval mild increase in size of known 7.8 x 6.7 cm heterogeneously enhancing low density mass in the head of the pancreas. GI consulted. F/U recs NIDDM Chronic, controlled Stop Metformin for now. Last A1c <7 Accucheck SSI ACHS Hypoglycemia protocol HTN chronic, stable continue home meds Hypothyroidism c/w home meds TSH wnl Prophylaxis DVT lovenox Florastor
[2018-02-19] MEDS: Sodium Chloride 0.9% 1,000 ML IV SCH ×2 (11:04→23:30)
[2018-02-19] MEDS: metroNIDAZOLE 500mg/100ml NS 100 ML IVPB SCH ×2 (11:04→17:33)
[2018-02-19] MEDS: Ciprofloxacin 400mg/200ml D5W 400 MG/200 ML BAG IVPB SCH ×2 (11:04→20:33)
[2018-02-19 12:43] LABS: SQUAMOUS EPITHIAL < 1 /hpf (0-5); URINE BACTERIA RARE (<OCC); URINE BILIRUBIN NEGATIVE (NEGATIVE); URINE BLOOD SMALL (NEGATIVE); URINE CLARITY CLEAR (Clear); URINE COLOR YELLOW (YELLOW); URINE GLUCOSE (UA) NEG (NEGATIVE); URINE LEUKOCYTE ESTERASE NEG Leu/uL (Negative); URINE PROTEIN NEGATIVE (NEGATIVE); URINE UROBILINOGEN 0.2-1.0 mg/dL (0.2-1.0)
[2018-02-19 14:13] LABS: FOLATE > 20.0 ng/mL
[2018-02-19] MEDS ORDERED: Lactobacillus Acidophilus 500 MU Cap PO SCH (17:00)
--- NOTE | 2018-02-19 17:37 | CP.PCM.CON ---
History of Present Illness - History of Present Illness History of Present Illness: consult requested for auditory hallucinations 82 year old female with PMHx of NIDDM, HLD, COPD, and HTN, presents to ED brought in by her daughter with c/o diarrhea, poor PO intake and hallucination x 1 week. pt reported past hx of depression and receiving psychotherapy long time ago due to problems with , patine reported that for the past month at least she has been experiencing auditory hallucinations, unidentified voiced putting her down, talking bad about her son , pt reported feeling down and distressed due to the auditory hallucinations , reported decreased sleep, no changes in appetite , denied any command hallucinations, denied suicidal or homicidal ideation patient is alert awake. speech underproductive mood tired affect appropriate to thought content , oriented to person place, season and month Past Patient History - Past Medical History & Family History Past Medical History?: Yes - Past Social History Smoking Status: Never Smoked - CARDIAC Hx Cardiac Disorders: Yes - PULMONARY Hx Respiratory Disorders: Yes - NEUROLOGICAL Hx Neurological Disorder: Yes - HEENT Hx HEENT Problems: Yes - RENAL Hx Chronic Kidney Disease: Yes - ENDOCRINE/METABOLIC Hx Endocrine Disorders: Yes Hx Diabetes Mellitus Type 1: Yes - HEMATOLOGICAL/ONCOLOGICAL Hx Blood Disorders: No Hx AIDS: No Hx Human Immunodeficiency Virus (HIV): No - INTEGUMENTARY Hx Dermatological Problems: No - MUSCULOSKELETAL/RHEUMATOLOGICAL Hx Musculoskeletal Disorders: Yes Hx Falls: No - GASTROINTESTINAL Hx Gastrointestinal Disorders: No - GENITOURINARY/GYNECOLOGICAL Hx Genitourinary Disorders: No - PSYCHIATRIC Hx Psychophysiologic Disorder: Yes Hx Substance Use: No - SURGICAL HISTORY Hx Cholecystectomy: Yes - ANESTHESIA Hx Anesthesia: Yes Hx Anesthesia Reactions: No Hx Malignant Hyperthermia: No Meds Allergies/Adverse Reactions: Allergies Allergy/AdvReac Type Severity Reaction Status Date / Time ambien AdvReac Severe HEADACHE Uncoded 02/18/18 14:33 - Medications Medications: Current Medications Acetaminophen (Tylenol 325mg Tab) 650 mg PO Q6 PRN PRN Reason: Pain, moderate (4-7) Last Admin: 02/18/18 23:29 Dose: 650 mg Alprazolam (Xanax) 0.5 mg PO HS [facility] Last Admin: 02/18/18 23:28 Dose: 0.5 mg Cyanocobalamin (Vitamin B12 1000 Mcg/Ml Inj) 1,000 mcg IM DAILY [facility] Last Admin: 02/19/18 09:21 Dose: 1,000 mcg Enoxaparin Sodium (Lovenox) 40 mg SC DAILY [facility]; Protocol Last Admin: 02/19/18 09:03 Dose: 40 mg Furosemide (Lasix) 20 mg PO DAILY [facility] Last Admin: 02/19/18 09:11 Dose: 20 mg Ciprofloxacin (Cipro 400mg/200ml Dsw) 400 mg in 200 mls @ 200 mls/hr IVPB Q12 [facility]; Protocol Last Admin: 02/19/18 11:04 Dose: 200 mls/hr Metronidazole (Flagyl 500mg/100ml Ns) 100 mls @ 100 mls/hr IVPB Q8 [facility]; Protocol Last Admin: 02/19/18 11:04 Dose: 100 mls/hr Sodium Chloride (Sodium Chloride 0.9%) 1,000 mls @ 100 mls/hr IV .Q10H [facility] Stop: 02/20/18 09:34 Last Admin: 02/19/18 11:04 Dose: 100 mls/hr Insulin Human Lispro (Humalog) 0 units SC ACCU-CHECK [facility]; Protocol Last Admin: 02/19/18 11:19 Dose: Not Given Levothyroxine Sodium (Synthroid) 25 mcg PO DAILY@0630 [facility] Last Admin: 02/19/18 09:09 Dose: 25 mcg Lisinopril (Zestril) 5 mg PO ONCE ONE Stop: 02/19/18 22:59 Last Admin: 02/18/18 23:28 Dose: 5 mg Losartan Potassium (Cozaar) 100 mg PO DAILY [facility] Last Admin: 02/19/18 09:04 Dose: 100 mg Montelukast Sodium (Singulair) 10 mg PO DAILY [facility] Last Admin: 02/19/18 09:11 Dose: 10 mg Pantoprazole Sodium (Protonix Ec Tab) 40 mg PO DAILY [facility] Last Admin: 02/19/18 09:12 Dose: 40 mg Paroxetine HCl (Paxil) 40 mg PO DAILY [facility] Last Admin: 02/19/18 09:12 Dose: 40 mg Saccharomyces Boulardii (Florastor) 250 mg PO BID [facility] Last Admin: 02/19/18 09:05 Dose: 250 mg Vancomycin HCl (Vancocin (Oral/Rectal Use)) 125 mg PO Q8 [facility]; Protocol Last Admin: 02/19/18 09:07 Dose: 125 mg Results - Vital Signs Recent Vital Signs: Last Vital Signs Temp 97.7 F 02/19/18 16:24 Pulse 69 02/19/18 16:24 Resp 20 02/19/18 16:24 BP 126/75 02/19/18 16:24 Pulse Ox 98 02/19/18 16:24 - Labs Result Diagrams: 02/19/18 05:45 02/19/18 05:45 Labs: Laboratory Results - last 24 hr 02/18/18 02/18/18 02/19/18 16:06 22:47 05:45 WBC 14.6 H RBC 4.25 Hgb 10.9 L Hct 35.2 MCV 82.7 MCH 25.7 L MCHC 31.1 L RDW 17.7 H Plt Count 332 MPV 7.4 Neut % (Auto) 78.4 H Lymph % (Auto) 15.1 L Levy % (Auto) 3.9 Eos % (Auto) 1.6 Baso % (Auto) 1.0 Neut # (Auto) 11.5 H Lymph # (Auto) 2.2 Levy # (Auto) 0.6 Eos # (Auto) 0.2 Baso # (Auto) 0.1 Sodium 139 Potassium 4.7 Chloride 102 Carbon Dioxide 29 Anion Gap 13 BUN 17 Creatinine 0.9 Est GFR ( Amer) > 60 Est GFR (Non-Af Amer) 60 POC Glucose (mg/dL) 115 H Random Glucose 124 H Uric Acid Calcium 8.7 Phosphorus 4.3 Magnesium 1.7 Total Bilirubin 0.3 AST 25 ALT 21 Alkaline Phosphatase 88 Total Protein 6.7 Albumin 3.2 L D Globulin 3.5 Albumin/Globulin Ratio 0.9 L Vitamin B12 Folate TSH 3rd Generation Urine Color Urine Clarity Urine pH Ur Specific [place] Urine Protein Urine Glucose (UA) Urine Ketones Urine Blood Urine Nitrate Urine Bilirubin Urine Urobilinogen Ur Leukocyte Esterase Urine RBC (Auto) Urine Microscopic WBC Ur Squamous Epith Cells Urine Bacteria 02/19/18 02/19/18 02/19/18 05:45 06:09 07:09 WBC RBC Hgb Hct MCV MCH MCHC RDW Plt Count MPV Neut % (Auto) Lymph % (Auto) Levy % (Auto) Eos % (Auto) Baso % (Auto) Neut # (Auto) Lymph # (Auto) Levy # (Auto) Eos # (Auto) Baso # (Auto) Sodium 140 Potassium 4.9 Chloride 103 Carbon Dioxide 31 H Anion Gap 11 BUN 17 Creatinine 0.9 Est GFR ( Amer) > 60 Est GFR (Non-Af Amer) 60 POC Glucose (mg/dL) 112 H Random Glucose 117 H Uric Acid Calcium 8.2 L Phosphorus Magnesium Total Bilirubin AST ALT Alkaline Phosphatase Total Protein Albumin Globulin Albumin/Globulin Ratio Vitamin B12 < 159 L Folate > 20.0 TSH 3rd Generation 0.96 Urine Color Urine Clarity Urine pH Ur Specific [place] Urine Protein Urine Glucose (UA) Urine Ketones Urine Blood Urine Nitrate Urine Bilirubin Urine Urobilinogen Ur Leukocyte Esterase Urine RBC (Auto) Urine Microscopic WBC Ur Squamous Epith Cells Urine Bacteria 02/19/18 02/19/18 02/19/18 07:09 11:03 12:15 WBC RBC Hgb Hct MCV MCH MCHC RDW Plt Count MPV Neut % (Auto) Lymph % (Auto) Levy % (Auto) Eos % (Auto) Baso % (Auto) Neut # (Auto) Lymph # (Auto) Levy # (Auto) Eos # (Auto) Baso # (Auto) Sodium Potassium Chloride Carbon Dioxide Anion Gap BUN Creatinine Est GFR ( Amer) Est GFR (Non-Af Amer) POC Glucose (mg/dL) 121 H Random Glucose Uric Acid 4.8 Calcium Phosphorus Magnesium Total Bilirubin AST ALT Alkaline Phosphatase Total Protein Albumin Globulin Albumin/Globulin Ratio Vitamin B12 Folate TSH 3rd Generation Urine Color Yellow Urine Clarity Clear Urine pH 6.0 Ur Specific [place] 1.016 Urine Protein Negative Urine Glucose (UA) Neg Urine Ketones Negative Urine Blood Small Urine Nitrate Positive H Urine Bilirubin Negative Urine Urobilinogen 0.2-1.0 Ur Leukocyte Esterase Neg Urine RBC (Auto) 4 H Urine Microscopic WBC 1 Ur Squamous Epith Cells < 1 Urine Bacteria Rare 02/19/18 15:39 WBC RBC Hgb Hct MCV MCH MCHC RDW Plt Count MPV Neut % (Auto) Lymph % (Auto) Levy % (Auto) Eos % (Auto) Baso % (Auto) Neut # (Auto) Lymph # (Auto) Levy # (Auto) Eos # (Auto) Baso # (Auto) Sodium Potassium Chloride Carbon Dioxide Anion Gap BUN Creatinine Est GFR ( Amer) Est GFR (Non-Af Amer) POC Glucose (mg/dL) 90 Random Glucose Uric Acid Calcium Phosphorus Magnesium Total Bilirubin AST ALT Alkaline Phosphatase Total Protein Albumin Globulin Albumin/Globulin Ratio Vitamin B12 Folate TSH 3rd Generation Urine Color Urine Clarity Urine pH Ur Specific [place] Urine Protein Urine Glucose (UA) Urine Ketones Urine Blood Urine Nitrate Urine Bilirubin Urine Urobilinogen Ur Leukocyte Esterase Urine RBC (Auto) Urine Microscopic WBC Ur Squamous Epith Cells Urine Bacteria Assessment & Plan - Assessment and Plan (Free Text) Assessment: psychotic disorder rule out depression with psychosis Plan: recommend starting risperidone 0.25mg qhs recommend starting lexapro 5mg qhs pt would benefit from admission to psychiatry on medical clearance for observation for psychopharmacological effect and side effect profile
--- NOTE | 2018-02-19 23:16 | CP.PCM.CON ---
History of Present Illness - History of Present Illness History of Present Illness: 82 yo female with dementia brought to ER for frequent loose stools. Since admission stoolj have been formeb. Review of Systems - Review of Systems Systems not reviewed;Unavailable: Altered Mental Status Past Patient History - Past Medical History & Family History Past Medical History?: Yes - Past Social History Smoking Status: Never Smoked - CARDIAC Hx Cardiac Disorders: Yes - PULMONARY Hx Respiratory Disorders: Yes - NEUROLOGICAL Hx Neurological Disorder: Yes - HEENT Hx HEENT Problems: Yes - RENAL Hx Chronic Kidney Disease: Yes - ENDOCRINE/METABOLIC Hx Endocrine Disorders: Yes Hx Diabetes Mellitus Type 1: Yes - HEMATOLOGICAL/ONCOLOGICAL Hx Blood Disorders: No Hx AIDS: No Hx Human Immunodeficiency Virus (HIV): No - INTEGUMENTARY Hx Dermatological Problems: No - MUSCULOSKELETAL/RHEUMATOLOGICAL Hx Musculoskeletal Disorders: Yes Hx Falls: No - GASTROINTESTINAL Hx Gastrointestinal Disorders: No - GENITOURINARY/GYNECOLOGICAL Hx Genitourinary Disorders: No - PSYCHIATRIC Hx Psychophysiologic Disorder: Yes Hx Substance Use: No - SURGICAL HISTORY Hx Cholecystectomy: Yes - ANESTHESIA Hx Anesthesia: Yes Hx Anesthesia Reactions: No Hx Malignant Hyperthermia: No Meds Allergies/Adverse Reactions: Allergies Allergy/AdvReac Type Severity Reaction Status Date / Time ambien AdvReac Severe HEADACHE Uncoded 02/18/18 14:33 - Medications Medications: Current Medications Acetaminophen (Tylenol 325mg Tab) 650 mg PO Q6 PRN PRN Reason: Pain, moderate (4-7) Last Admin: 02/18/18 23:29 Dose: 650 mg Alprazolam (Xanax) 0.5 mg PO HS [facility] Last Admin: 02/18/18 23:28 Dose: 0.5 mg Cyanocobalamin (Vitamin B12 1000 Mcg/Ml Inj) 1,000 mcg IM DAILY [facility] Last Admin: 02/19/18 09:21 Dose: 1,000 mcg Enoxaparin Sodium (Lovenox) 40 mg SC DAILY [facility]; Protocol Last Admin: 02/19/18 09:03 Dose: 40 mg Furosemide (Lasix) 20 mg PO DAILY [facility] Last Admin: 02/19/18 09:11 Dose: 20 mg Ciprofloxacin (Cipro 400mg/200ml Dsw) 400 mg in 200 mls @ 200 mls/hr IVPB Q12 [facility] ; Protocol Last Admin: 02/19/18 20:33 Dose: 200 mls/hr Metronidazole (Flagyl 500mg/100ml Ns) 100 mls @ 100 mls/hr IVPB Q8 [facility]; Protocol Last Admin: 02/19/18 17:33 Dose: 100 mls/hr Sodium Chloride (Sodium Chloride 0.9%) 1,000 mls @ 100 mls/hr IV .Q10H [facility] Stop: 02/20/18 09:34 Last Admin: 02/19/18 11:04 Dose: 100 mls/hr Insulin Human Lispro (Humalog) 0 units SC ACCU-CHECK [facility]; Protocol Last Admin: 02/19/18 17:36 Dose: Not Given Levothyroxine Sodium (Synthroid) 25 mcg PO DAILY@0630 [facility] Last Admin: 02/19/18 09:09 Dose: 25 mcg Losartan Potassium (Cozaar) 100 mg PO DAILY [facility] Last Admin: 02/19/18 09:04 Dose: 100 mg Montelukast Sodium (Singulair) 10 mg PO DAILY [facility] Last Admin: 02/19/18 09:11 Dose: 10 mg Pantoprazole Sodium (Protonix Ec Tab) 40 mg PO DAILY [facility] Last Admin: 02/19/18 09:12 Dose: 40 mg Paroxetine HCl (Paxil) 40 mg PO DAILY [facility] Last Admin: 02/19/18 09:12 Dose: 40 mg Saccharomyces Boulardii (Florastor) 250 mg PO BID [facility] Last Admin: 02/19/18 17:33 Dose: 250 mg Vancomycin HCl (Vancocin (Oral/Rectal Use)) 125 mg PO Q8 [facility]; Protocol Last Admin: 02/19/18 17:34 Dose: 125 mg Physical Exam - Head Exam Head Exam: NORMAL INSPECTION - Eye Exam Eye Exam: PERRL - ENT Exam ENT Exam: Mucous Membranes Moist - Neck Exam Neck exam: Positive for: Normal Inspection - GI/Abdominal Exam GI & Abdominal Exam: Normal Bowel Sounds, Soft. absent: Tenderness Results - Vital Signs Recent Vital Signs: Last Vital Signs Temp 97.7 F 02/19/18 16:24 Pulse 69 02/19/18 16:24 Resp 20 02/19/18 16:24 BP 126/75 02/19/18 16:24 Pulse Ox 98 02/19/18 16:24 - Labs Result Diagrams: 02/19/18 05:45 02/19/18 05:45 Labs: Laboratory Results - last 24 hr 12/02/19/18 02/19/18 16:06 05:45 05:45 WBC 14.6 H RBC 4.25 Hgb 10.9 L Hct 35.2 MCV 82.7 MCH 25.7 L MCHC 31.1 L RDW 17.7 H Plt Count 332 MPV 7.4 Neut % (Auto) 78.4 H Lymph % (Auto) 15.[address] [facility] % (Auto) 3.9 Eos % (Auto) 1.6 Baso % (Auto) 1.0 Neut # (Auto) 11.5 H Lymph # (Auto) 2.2 [facility] # (Auto) 0.6 Eos # (Auto) 0.2 Baso # (Auto) 0.1 Sodium 139 140 Potassium 4.7 4.9 Chloride 102 103 Carbon Dioxide 29 31 H Anion Gap 13 11 BUN 17 17 Creatinine 0.9 0.9 Est GFR ( Amer) > 60 > 60 Est GFR (Non-Af Amer) 60 60 POC Glucose (mg/dL) Random Glucose 124 H 117 H Uric Acid Calcium 8.7 8.2 L Phosphorus 4.3 Magnesium 1.7 Total Bilirubin 0.3 AST 25 ALT 21 Alkaline Phosphatase 88 Total Protein 6.7 Albumin 3.2 L D Globulin 3.5 Albumin/Globulin Ratio 0.9 L Vitamin B12 Folate TSH 3rd Generation Urine Color Urine Clarity Urine pH Ur Specific [facility] Urine Protein Urine Glucose (UA) Urine Ketones Urine Blood Urine Nitrate Urine Bilirubin Urine Urobilinogen Ur Leukocyte Esterase Urine RBC (Auto) Urine Microscopic WBC Ur Squamous Epith Cells Urine Bacteria 02/19/18 02/19/18 02/19/18 06:09 07:09 07:09 WBC RBC Hgb Hct MCV MCH MCHC RDW Plt Count MPV Neut % (Auto) Lymph % (Auto) [facility] % (Auto) Eos % (Auto) Baso % (Auto) Neut # (Auto) Lymph # (Auto) [facility] # (Auto) Eos # (Auto) Baso # (Auto) Sodium Potassium Chloride Carbon Dioxide Anion Gap BUN Creatinine Est GFR ( Amer) Est GFR (Non-Af Amer) POC Glucose (mg/dL) 112 H Random Glucose Uric Acid 4.8 Calcium Phosphorus Magnesium Total Bilirubin AST ALT Alkaline Phosphatase Total Protein Albumin Globulin Albumin/Globulin Ratio Vitamin B12 < 159 L Folate > 20.0 TSH 3rd Generation 0.96 Urine Color Urine Clarity Urine pH Ur Specific [facility] Urine Protein Urine Glucose (UA) Urine Ketones Urine Blood Urine Nitrate Urine Bilirubin Urine Urobilinogen Ur Leukocyte Esterase Urine RBC (Auto) Urine Microscopic WBC Ur Squamous Epith Cells Urine Bacteria 02/19/18 02/19/18 02/19/18 11:03 12:15 15:39 WBC RBC Hgb Hct MCV MCH MCHC RDW Plt Count MPV Neut % (Auto) Lymph % (Auto) [facility] % (Auto) Eos % (Auto) Baso % (Auto) Neut # (Auto) Lymph # (Auto) [facility] # (Auto) Eos # (Auto) Baso # (Auto) Sodium Potassium Chloride Carbon Dioxide Anion Gap BUN Creatinine Est GFR ( Amer) Est GFR (Non-Af Amer) POC Glucose (mg/dL) 121 H 90 Random Glucose Uric Acid Calcium Phosphorus Magnesium Total Bilirubin AST ALT Alkaline Phosphatase Total Protein Albumin Globulin Albumin/Globulin Ratio Vitamin B12 Folate TSH 3rd Generation Urine Color Yellow Urine Clarity Clear Urine pH 6.0 Ur Specific [facility] 1.016 Urine Protein Negative Urine Glucose (UA) Neg Urine Ketones Negative Urine Blood Small Urine Nitrate Positive H Urine Bilirubin Negative Urine Urobilinogen 0.2-1.0 Ur Leukocyte Esterase Neg Urine RBC (Auto) 4 H Urine Microscopic WBC 1 Ur Squamous Epith Cells < 1 Urine Bacteria Rare 02/19/18 21:13 WBC RBC Hgb Hct MCV MCH MCHC RDW Plt Count MPV Neut % (Auto) Lymph % (Auto) [facility] % (Auto) Eos % (Auto) Baso % (Auto) Neut # (Auto) Lymph # (Auto) [facility] # (Auto) Eos # (Auto) Baso # (Auto) Sodium Potassium Chloride Carbon Dioxide Anion Gap BUN Creatinine Est GFR ( Amer) Est GFR (Non-Af Amer) POC Glucose (mg/dL) 104 Random Glucose Uric Acid Calcium Phosphorus Magnesium Total Bilirubin AST ALT Alkaline Phosphatase Total Protein Albumin Globulin Albumin/Globulin Ratio Vitamin B12 Folate TSH 3rd Generation Urine Color Urine Clarity Urine pH Ur Specific [facility] Urine Protein Urine Glucose (UA) Urine Ketones Urine Blood Urine Nitrate Urine Bilirubin Urine Urobilinogen Ur Leukocyte Esterase Urine RBC (Auto) Urine Microscopic WBC Ur Squamous Epith Cells Urine Bacteria Assessment & Plan (1) Diarrhea Status: Acute (2) Gastroenteritis Assessment and Plan: Clinically better. will follow clinically.. Status: Acute
[2018-02-20] MEDS: metroNIDAZOLE 500mg/100ml NS 100 ML IVPB SCH ×2 (00:13→09:34)
[2018-02-20] MEDS: Vancomycin 500 mg (Oral/Rectal USE) PO SCH ×2 (00:14→09:41)
[2018-02-20] MEDS: Levothyroxine 25 MCG TAB PO SCH (05:46)
[2018-02-20] MEDS: Sodium Chloride 0.9% 1,000 ML IV SCH (05:47)
[2018-02-20 06:35] LABS: HEMOGLOBIN 11.1 g/dL (12.0-16.0); MEAN CELL VOLUME 81.7 fl (81.0-99.0); MEAN CORPUSCULAR HEMOGLOBIN 25.7 pg (27.0-31.0); MEAN CORPUSCULAR HGB CONC 31.4 g/dL (33.0-37.0); RBC 4.32 Mil/uL (3.80-5.20); RED CELL DISTRIBUTION WIDTH 17.4 % (11.5-14.5); WHITE BLOOD COUNT 12.3 K/uL (4.8-10.8)
[2018-02-20 06:54] LABS: ALB/GLOB RATIO 0.9 (1.0-2.1); CALCIUM 8.4 mg/dL (8.4-10.2)
[2018-02-20] MEDS: Insulin Lispro (humaLOG) 100 Units/ml Inj SC SCH ×2 (07:00→11:27)
[2018-02-20 08:42] VITALS: BP 137/74; PULSE 66; RESP 20; TEMP 97.1; O2SAT 97
--- NOTE | 2018-02-20 09:12 | CP.PCM.PN ---
Subjective - Date & Time of Evaluation Date of Evaluation: 02/20/18 Time of Evaluation: 09:00 Objective - Vital Signs/Intake and Output Vital Signs (last 24 hours): Temp Pulse Resp BP Pulse Ox 97.1 F L 66 20 137/74 97 02/20/18 08:41 02/20/18 08:41 02/20/18 08:41 02/20/18 08:41 02/20/18 08:41 - Medications Medications: Current Medications Acetaminophen (Tylenol 325mg Tab) 650 mg PO Q6 PRN PRN Reason: Pain, moderate (4-7) Last Admin: 02/18/18 23:29 Dose: 650 mg Alprazolam (Xanax) 0.5 mg PO HS [facility] Last Admin: 02/19/18 23:30 Dose: 0.5 mg Cyanocobalamin (Vitamin B12 1000 Mcg/Ml Inj) 1,000 mcg IM DAILY [facility] Last Admin: 02/19/18 09:21 Dose: 1,000 mcg Enoxaparin Sodium (Lovenox) 40 mg SC DAILY [facility]; Protocol Last Admin: 02/19/18 09:03 Dose: 40 mg Furosemide (Lasix) 20 mg PO DAILY [facility] Last Admin: 02/19/18 09:11 Dose: 20 mg Ciprofloxacin (Cipro 400mg/200ml Dsw) 400 mg in 200 mls @ 200 mls/hr IVPB Q12 [facility]; Protocol Last Admin: 02/19/18 20:33 Dose: 200 mls/hr Metronidazole (Flagyl 500mg/100ml Ns) 100 mls @ 100 mls/hr IVPB Q8 [facility]; Protocol Last Admin: 02/20/18 00:13 Dose: 100 mls/hr Sodium Chloride (Sodium Chloride 0.9%) 1,000 mls @ 100 mls/hr IV .Q10H [facility] Stop: 02/20/18 09:34 Last Admin: 02/20/18 05:47 Dose: Not Given Insulin Human Lispro (Humalog) 0 units SC ACCU-CHECK [facility]; Protocol Last Admin: 02/20/18 07:00 Dose: Not Given Levothyroxine Sodium (Synthroid) 25 mcg PO DAILY@0630 [facility] Last Admin: 02/20/18 05:46 Dose: 25 mcg Losartan Potassium (Cozaar) 100 mg PO DAILY [facility] Last Admin: 02/19/18 09:04 Dose: 100 mg Montelukast Sodium (Singulair) 10 mg PO DAILY [facility] Last Admin: 02/19/18 09:11 Dose: 10 mg Pantoprazole Sodium (Protonix Ec Tab) 40 mg PO DAILY [facility] Last Admin: 02/19/18 09:12 Dose: 40 mg Paroxetine HCl (Paxil) 40 mg PO DAILY [facility] Last Admin: 02/19/18 09:12 Dose: 40 mg Saccharomyces Boulardii (Florastor) 250 mg PO BID [facility] Last Admin: 02/19/18 17:33 Dose: 250 mg Vancomycin HCl (Vancocin (Oral/Rectal Use)) 125 mg PO Q8 [facility]; Protocol Last Admin: 02/20/18 00:14 Dose: 125 mg - Labs Labs: 02/20/18 05:45 02/20/18 05:45 PT 11.9 Seconds (9.8-13.1) 02/18/18 16:06 INR 1.0 02/18/18 16:06 APTT 32.5 Seconds (25.6-37.1) 02/18/18 16:06
[2018-02-20] MEDS: Saccharomyces Boulardi 250 mg Cap PO SCH (09:35)
[2018-02-20] MEDS: Pantoprazole 40 mg EC Tab PO SCH (09:36)
[2018-02-20] MEDS: Enoxaparin 40 mg Syringe SC SCH (09:36)
[2018-02-20] MEDS: Ciprofloxacin 400mg/200ml D5W 400 MG/200 ML BAG IVPB SCH (11:28)
--- NOTE | 2018-02-20 11:47 | CP.PCM.PN ---
Subjective - Date & Time of Evaluation Date of Evaluation: 02/20/18 Time of Evaluation: 11:44 - Subjective Subjective: Patient appears comfortable. Has a good apetite Objective - Vital Signs/Intake and Output Vital Signs (last 24 hours): Temp Pulse Resp BP Pulse Ox 97.1 F L 66 20 137/74 97 02/20/18 08:41 02/20/18 09:34 02/20/18 08:41 02/20/18 09:36 02/20/18 08:41 - Medications Medications: Current Medications Acetaminophen (Tylenol 325mg Tab) 650 mg PO Q6 PRN PRN Reason: Pain, moderate (4-7) Last Admin: 02/18/18 23:29 Dose: 650 mg Alprazolam (Xanax) 0.5 mg PO HS [facility] Last Admin: 02/19/18 23:30 Dose: 0.5 mg Cyanocobalamin (Vitamin B12 1000 Mcg/Ml Inj) 1,000 mcg IM DAILY [facility] Last Admin: 02/20/18 09:38 Dose: 1,000 mcg Enoxaparin Sodium (Lovenox) 40 mg SC DAILY [facility]; Protocol Last Admin: 02/20/18 09:36 Dose: 40 mg Furosemide (Lasix) 20 mg PO DAILY [facility] Last Admin: 02/20/18 09:36 Dose: 20 mg Ciprofloxacin (Cipro 400mg/200ml Dsw) 400 mg in 200 mls @ 200 mls/hr IVPB Q12 [facility]; Protocol Last Admin: 02/20/18 11:28 Dose: 200 mls/hr Metronidazole (Flagyl 500mg/100ml Ns) 100 mls @ 100 mls/hr IVPB Q8 [facility]; Protocol Last Admin: 02/20/18 09:34 Dose: 100 mls/hr Insulin Human Lispro (Humalog) 0 units SC ACCU-CHECK [facility]; Protocol Last Admin: 02/20/18 11:27 Dose: Not Given Levothyroxine Sodium (Synthroid) 25 mcg PO DAILY@0630 [facility] Last Admin: 02/20/18 05:46 Dose: 25 mcg Losartan Potassium (Cozaar) 100 mg PO DAILY [facility] Last Admin: 02/20/18 09:34 Dose: 100 mg Montelukast Sodium (Singulair) 10 mg PO DAILY [facility] Last Admin: 02/20/18 09:37 Dose: 10 mg Pantoprazole Sodium (Protonix Ec Tab) 40 mg PO DAILY [facility] Last Admin: 02/20/18 09:36 Dose: 40 mg Paroxetine HCl (Paxil) 40 mg PO DAILY [facility] Last Admin: 02/20/18 09:36 Dose: 40 mg Saccharomyces Boulardii (Florastor) 250 mg PO BID [facility] Last Admin: 02/20/18 09:35 Dose: 250 mg Vancomycin HCl (Vancocin (Oral/Rectal Use)) 125 mg PO Q8 [facility]; Protocol Last Admin: 02/20/18 09:41 Dose: 125 mg - Labs Labs: 02/20/18 05:45 02/20/18 05:45 PT 11.9 Seconds (9.8-13.1) 02/18/18 16:06 INR 1.0 02/18/18 16:06 APTT 32.5 Seconds (25.6-37.1) 02/18/18 16:06 - Head Exam Head Exam: ATRAUMATIC - Eye Exam Eye Exam: Normal appearance - Neck Exam Neck Exam: Full ROM - Respiratory Exam Respiratory Exam: Clear to Ausculation Bilateral - Cardiovascular Exam Cardiovascular Exam: REGULAR RHYTHM, +S1, +S2 - GI/Abdominal Exam GI & Abdominal Exam: Soft, Normal Bowel Sounds. absent: Tenderness Assessment and Plan (1) Diarrhea Assessment & Plan: No reports of diarrhea now. Tolerating diet. Status: Acute (2) Gastroenteritis Status: Acute
--- NOTE | 2018-02-20 12:16 | CP.PCM.DIS ---
Provider - Provider Date of Admission: 02/18/18 19:31 Attending physician: Ari Mendez MD Primary care physician: : [place] Consults: 02/18/18 19:45 Gastroenterology Consult Stat Comment: Consulting Provider: Bao Burk Consulting Physician: Bao Burk Reason for Consult: colitis 02/18/18 19:46 Psychiatry Consult Stat Comment: Consulting Provider: Jose Maria Blackwell Consulting Physician: Jose Maria Blackwell Reason for Consult: auditory hallucination, dementia Time Spent in preparation of Discharge (in minutes): 45 Diagnosis - Discharge Diagnosis (1) Diarrhea Status: Acute Comment: -Likely due to lactose-intolerance. Advised to drink lactose-free beverages. (2) Auditory hallucinations Status: Acute Comment: -Psychiatry unit admission was declined by patient. Will start Risperidal low dose and Lexapro. Stopped Paxil. --[facility] information given for outpatient follow-up. Hospital Course - Lab Results Lab Results: Micro Results 02/19/18 14:10 Urine,Catheterized Urine Culture - Preliminary Gram Negative Dennis 02/18/18 16:10 Blood-Venous Blood Culture - Preliminary NO GROWTH AFTER 24 HOURS 02/18/18 15:55 Blood-Venous Blood Culture - Preliminary NO GROWTH AFTER 24 HOURS Most Recent Lab Values WBC 12.3 K/uL (4.8-10.8) H 02/20/18 05:45 RBC 4.32 Mil/uL (3.80-5.20) 02/20/18 05:45 Hgb 11.1 g/dL (12.0-16.0) L 02/20/18 05:45 Hct 35.3 % (34.0-47.0) 02/20/18 05:45 MCV 81.7 fl (81.0-99.0) 02/20/18 05:45 MCH 25.7 pg (27.0-31.0) L 02/20/18 05:45 MCHC 31.4 g/dL (33.0-37.0) L 02/20/18 05:45 RDW 17.4 % (11.5-14.5) H 02/20/18 05:45 Plt Count 310 K/uL (130-400) 02/20/18 05:45 MPV 7.4 fl (7.2-11.7) 02/19/18 05:45 Neut % (Auto) 78.4 % (50.0-75.0) H 02/19/18 05:45 Lymph % (Auto) 15.1 % (20.0-40.0) L 02/19/18 05:45 [place] % (Auto) 3.9 % (0.0-10.0) 02/19/18 05:45 Eos % (Auto) 1.6 % (0.0-4.0) 02/19/18 05:45 Baso % (Auto) 1.0 % (0.0-2.0) 02/19/18 05:45 Neut # (Auto) 11.5 K/uL (1.8-7.0) H 02/19/18 05:45 Lymph # (Auto) 2.2 K/uL (1.0-4.3) 02/19/18 05:45 [place] # (Auto) 0.6 K/uL (0.0-0.8) 02/19/18 05:45 Eos # (Auto) 0.2 K/uL (0.0-0.7) 02/19/18 05:45 Baso # (Auto) 0.1 K/uL (0.0-0.2) 02/19/18 05:45 PT 11.9 Seconds (9.8-13.1) 02/18/18 16:06 INR 1.0 02/18/18 16:06 APTT 32.5 Seconds (25.6-37.1) 02/18/18 16:06 Sodium 141 mmol/l (132-148) 02/20/18 05:45 Potassium 4.4 MMOL/L (3.6-5.0) 02/20/18 05:45 Chloride 101 mmol/L (98-107) 02/20/18 05:45 Carbon Dioxide 34 mmol/L (22-30) H 02/20/18 05:45 Anion Gap 10 (10-20) 02/20/18 05:45 BUN 18 mg/dl (7-17) H 02/20/18 05:45 Creatinine 1.1 mg/dl (0.7-1.2) 02/20/18 05:45 Est GFR ( Amer) 57 02/20/18 05:45 Est GFR (Non-Af Amer) 47 02/20/18 05:45 POC Glucose (mg/dL) 111 mg/dL (65-110) H 02/20/18 11:12 Random Glucose 111 mg/dL (65-105) H 02/20/18 05:45 Uric Acid 4.8 mg/Dl (2.2-7.5) 02/19/18 07:09 Calcium 8.4 mg/dL (8.4-10.2) 02/20/18 05:45 Phosphorus 4.3 mg/dl (2.5-4.5) 02/18/18 16:06 Magnesium 1.7 MG/DL (1.6-2.3) 02/20/18 05:45 Total Bilirubin 0.3 mg/dl (0.2-1.3) 02/20/18 05:45 AST 19 U/L (14-36) 02/20/18 05:45 ALT 20 U/L (9-52) 02/20/18 05:45 Alkaline Phosphatase 77 U/L (38-126) 02/20/18 05:45 Total Protein 6.2 G/DL (6.3-8.2) L 02/20/18 05:45 Albumin 3.0 g/dL (3.5-5.0) L 02/20/18 05:45 Globulin 3.2 gm/dL (2.2-3.9) 02/20/18 05:45 Albumin/Globulin Ratio 0.9 (1.0-2.1) L 02/20/18 05:45 Vitamin B12 < 159 pg/mL (239-931) L 02/19/18 07:09 Folate > 20.0 ng/mL 02/19/18 07:09 TSH 3rd Generation 0.96 mIU/ML (0.46-4.68) 02/19/18 07:09 Urine Color Yellow (YELLOW) 02/19/18 12:15 Urine Clarity Clear (Clear) 02/19/18 12:15 Urine pH 6.0 (5.0-8.0) 02/19/18 12:15 Ur Specific [place] 1.016 (1.003-1.030) 02/19/18 12:15 Urine Protein Negative mg/dL (NEGATIVE) 02/19/18 12:15 Urine Glucose (UA) Neg mg/dL (NEGATIVE) 02/19/18 12:15 Urine Ketones Negative mg/dL (NEGATIVE) 02/19/18 12:15 Urine Blood Small (NEGATIVE) 02/19/18 12:15 Urine Nitrate Positive (NEGATIVE) H 02/19/18 12:15 Urine Bilirubin Negative (NEGATIVE) 02/19/18 12:15 Urine Urobilinogen 0.2-1.0 mg/dL (0.2-1.0) 02/19/18 12:15 Ur Leukocyte Esterase Neg [place]ory/uL (Negative) 02/19/18 12:15 Urine RBC (Auto) 4 /hpf (0-3) H 02/19/18 12:15 Urine Microscopic WBC 1 /hpf (0-5) 02/19/18 12:15 Ur Squamous Epith Cells < 1 /hpf (0-5) 02/19/18 12:15 Urine Bacteria Rare (<OCC) 02/19/18 12:15 - Hospital Course Hospital Course: 82 y/o female patient with a PMHx of HTN, HLD, DM, hypothyroidism, dementia admitted for evaluation and management of chronic diarrhea and auditory hallucinations. Diarrhea was present every day since ~5 weeks ago, same time when pt start taking whole milk. Previous to that, pt's bowel movement were daily, soft and formed. Pt was evaluated by senior it specialist. No diarrhea episodes since admission. Likely to be caused by lactose aintolerance. -Abd CT: Segmental circumferential mural thickening in the distal descending colon and hepatic flexure could be related to underdistention however could also represent nonspecific acute infectious/inflammatory colitis. No bowel obstruction. -Psychiatrist evaluated pti for auditory hallucinations. Psych unit admission was offered. Pt with full mental capacity declined psychiatry unit admission. --Today, pt reported feeling well, voices still present. Pt wants to go home. Psychitry unit admission declined. Pt stable, with NO diarrhea, will be discharged. Paroxetine was stopped, Risperidal 0.25mg QHS and Lexapro 5mg QHS were prescribed and will be initiated. Pt and daughter were instructed to avoid diary food with lactose. F/u with PCP within 1 week and mental health community clinic. - Date & Time of H&P Date of H&P: 02/18/18 Time of H&P: 19:11 Discharge Exam - Head Exam Head Exam: ATRAUMATIC - Eye Exam Eye Exam: EOMI, Normal appearance - ENT Exam ENT Exam: Mucous Membranes Moist - Neck Exam Neck exam: Full Rom, Thyromegaly - Respiratory Exam Respiratory Exam: NORMAL BREATHING PATTERN. absent: Rales, Rhonchi, Wheezes, Respiratory Distress - Cardiovascular Exam Cardiovascular Exam: +S1, +S2 - GI/Abdominal Exam GI & Abdominal Exam: Normal Bowel Sounds, Soft. absent: Distended, Guarding, Tenderness - Back Exam Back exam: absent: CVA tenderness (L), CVA tenderness (R) - Neurological Exam Neurological exam: Alert, Oriented x3 Discharge Plan - Discharge Medications Prescriptions: Escitalopram [Lexapro] 5 mg PO HS #30 tab Risperidone 0.25 mg PO HS #30 tablet - Follow Up Plan Condition: FAIR Disposition: HOME/ ROUTINE Instructions: Diarrhea in Adolescents and Adults, Altered Mental Status (DC), Dehydration (DC), Nutrition Tips for Relief of Diarrhea (DC) Additional Instructions: -Please f/u with PCP within 1 week. -Please, drink lactose-free dairy beverages such as lactaid milk. -Please f/u at any psychiatry or [facility] for hallucinations evaluation. hacer fco con barros primario dentro de 1 semana natasha lecheria sin lactosa hacer fco con psiquiatria para evaluacion de alucinaciones [facility] [address] [place] [address] Referrals: [facility] [Outside] [facility] [Outside] Jose Maria Blackwell MD [Medical Doctor] - Bao Burk MD [Staff Provider] -
== END 2018-02-20 15:10 | disposition home or self-care (01) ==
LOC: H.ER 14:30 → INTOOBSV 19:31 → H.ERHOLD 19:31 → H.MEDSURG1 22:29
DX: R19.7 Diarrhea, unspecified (principal); E53.8 Deficiency of other specified B group vitamins; N39.0 Urinary tract infection, site not specified; E11.22 Type 2 diabetes mellitus with diabetic chronic kidney disease; I12.0 Hypertensive chronic kidney disease with stage 5 chronic kidney disease or end stage renal disease; N18.6 End stage renal disease; E78.5 Hyperlipidemia, unspecified; E86.0 Dehydration; F03.90 Unspecified dementia, unspecified severity, without behavioral disturbance, psychotic disturbance, mood disturbance, and anxiety; K86.9 Disease of pancreas, unspecified; E78.00 Pure hypercholesterolemia, unspecified; J44.9 Chronic obstructive pulmonary disease, unspecified; Z99.81 Dependence on supplemental oxygen; M17.0 Bilateral primary osteoarthritis of knee; E03.9 Hypothyroidism, unspecified; F41.9 Anxiety disorder, unspecified; I25.10 Atherosclerotic heart disease of native coronary artery without angina pectoris; F23 Brief psychotic disorder
CPT/HCPCS: 36415; 70450; 71045; 74177; 80048; 80053; 81003; 82607; 82746; 82948; 83735; 84100; 84311; 84443; 84550; 85025; 85027; 85610; 85730; 87040; 87086; 93005; 99285; G0378; J0744; J1650; J3420; J7030; Q9967

== ENCOUNTER 2018-04-10 13:59 | Inpatient (IN) | payer MEDICARE, MEDICAID ==
[2018-04-10 13:59] VITALS: BMI 34.3
[2018-04-10 16:07] LABS: BASO # 0.1 K/uL (0.0-0.2); BASO % 0.8 % (0.0-2.0); EOS # 0.1 K/uL (0.0-0.7); EOS % 0.8 % (0.0-4.0); HEMOGLOBIN 12.7 g/dL (12.0-16.0); LYMPH # 2.4 K/uL (1.0-4.3); LYMPH % 17.1 % (20.0-40.0); MEAN CELL VOLUME 80.6 fl (81.0-99.0); MEAN CORPUSCULAR HGB CONC 31.1 g/dL (33.0-37.0); MEAN PLATELET VOLUME 6.9 fl (7.2-11.7); MONO # 0.8 K/uL (0.0-0.8); MONO % 5.4 % (0.0-10.0); NEUT # 10.7 K/uL (1.8-7.0); NEUT % 75.9 % (50.0-75.0); RBC 5.05 Mil/uL (3.80-5.20); RED CELL DISTRIBUTION WIDTH 17.6 % (11.5-14.5); WHITE BLOOD COUNT 14.1 K/uL (4.8-10.8)
[2018-04-10 16:12] LABS: ALBUMIN 3.6 g/dL (3.5-5.0)
[2018-04-10] MEDS ORDERED: Sodium Chloride 0.9% 1,000 ML IV ONE (16:18)
[2018-04-10 17:04] LABS: SQUAMOUS EPITHIAL < 1 /hpf (0-5); URINE BACTERIA OCC (<OCC); URINE BILIRUBIN NEGATIVE (NEGATIVE); URINE BLOOD SMALL (NEGATIVE); URINE CLARITY SLIGHTY-CLOUDY (Clear); URINE COLOR YELLOW (YELLOW); URINE GLUCOSE (UA) NEG (NEGATIVE); URINE LEUKOCYTE ESTERASE MOD Leu/uL (Negative); URINE PROTEIN 100 mg/dL (NEGATIVE); URINE UROBILINOGEN 0.2-1.0 mg/dL (0.2-1.0)
[2018-04-10 18:16] LABS: VENOUS BLOOD GAS BASE EXCESS -0.4 mmol/L (0.0-2.0); VENOUS BLOOD GAS PCO2 48 mmHg (40-60); VENOUS BLOOD GAS PO2 32 mm/Hg (30-55); VENOUS BLOOD PH 7.34 (7.32-7.43)
--- NOTE | 2018-04-10 18:31 | ED PDOC ---
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 Past Medical History Reviewed: Historical Data, Nursing Documentation, Vital Signs Vital Signs: Last Vital Signs Temp 98.1 F 04/10/18 14:07 Pulse 84 04/10/18 16:49 Resp 16 04/10/18 14:07 BP 157/88 H 04/10/18 16:49 Pulse Ox 98 04/10/18 14:07 - Medical History PMH: Anxiety, Arthritis (BOTH KNEES), CAD, COPD, Dementia, Depression, Diabetes, HTN, Hypercholesterolemia, Hypothyroidism, Pneumonia, End Stage Renal Disease, Chronic Kidney Disease, Seizures Denies: Atrial Fibrillation, Cardia Arrhythmia, CHF, HIV, Mitral Valve Prolapse, Peripheral Edema - Surgical History Surgical History: Cholecystectomy Denies: Pacemaker - Family History Family History: States: Unknown Family Hx - Immunization History Hx Tetanus Toxoid Vaccination: Yes - Home Medications Home Medications: Ambulatory Orders Medication Instructions Recorded Alprazolam [Xanax] 0.5 mg PO HS 02/18/18 Furosemide [Lasix] 20 mg PO DAILY PRN 02/18/18 Levothyroxine [Synthroid] 25 mcg PO DAILY 02/18/18 Losartan [Cozaar] 100 mg PO DAILY 02/18/18 Montelukast [Singulair] 10 mg PO DAILY 02/18/18 Simvastatin [Zocor] 40 mg PO DAILY 02/18/18 metFORMIN [glucOPHAGE] 500 mg PO BID 02/18/18 Risperidone 0.25 mg PO HS #30 tablet 02/20/18 Cranberry 1 cap PO DAILY 04/10/18 Escitalopram [Lexapro] 5 mg PO DAILY 04/10/18 Paroxetine HCl [Paxil] 40 mg PO DAILY 04/10/18 Sulfamethoxazole/Trimethoprim 1 tab PO BID 04/10/18 [Bactrim DS Tab] Zolpidem [Ambien] 5 mg PO HS 04/10/18 - Allergies Allergies/Adverse Reactions: Allergies Allergy/AdvReac Type Severity Reaction Status Date / Time No Known Allergies Allergy Verified 04/10/18 14:49 Review of Systems ROS Statement: Except As Marked, All Systems Reviewed And Found Negative Genitourinary Female: Positive for: Dysuria, Other (malodorus urine) Musculoskeletal: Positive for: Back Pain Physical Exam - Reviewed Vital Signs Reviewed: Yes - Physical Exam Appears: Positive for: Well, Non-toxic, No Acute Distress, Uncomfortable Head Exam: Positive for: ATRAUMATIC, NORMAL INSPECTION Skin: Positive for: Normal Color, Warm, Dry. Negative for: Diaphoresis, Pallor, Rash Eye Exam: Positive for: Normal appearance, PERRL. Negative for: Nystagmus, Periorbital swelling, Periorbital tenderness ENT: Positive for: Normal ENT Inspection Neck: Positive for: Normal, Painless ROM, Supple. Negative for: Decreased ROM Cardiovascular/Chest: Positive for: Regular Rate, Rhythm. Negative for: Murmur, Bradycardia, Tachycardia Respiratory: Positive for: Normal Breath Sounds. Negative for: Accessory Muscle Use, Crackles, Rales, Rhonchi, Stridor, Wheezing, Respiratory Distress Pulses-Carotid (L): 2+ Pulses-Carotid (R): 2+ Pulses-Radial (L): 2+ Pulses-Radial (R): 2+ Gastrointestinal/Abdominal: Positive for: Normal Exam, Bowel Sounds, Soft. Negative for: Tenderness, Distended, Guarding Back: Positive for: Normal Inspection, R CVA Tenderness. Negative for: L CVA Tenderness, Vertebral Tenderness, Muscle Spasm - Laboratory Results Result Diagrams: 04/10/18 15:54 04/10/18 15:54 Lab Results: pO2 32 mm/Hg (30-55) 04/10/18 17:52 ABG Carboxyhemoglobin 1.7 % (0.5-1.5) H 04/10/18 17:52 POC ABG HHb (Measured) 31.1 % (0.0-5.0) H 04/10/18 17:52 ABG Methemoglobin 3.4 % (0.0-3.0) H 04/10/18 17:52 VBG pH 7.34 (7.32-7.43) 04/10/18 17:52 VBG pCO2 48 mmHg (40-60) 04/10/18 17:52 VBG HCO3 23.8 mmol/L 04/10/18 17:52 VBG O2 Sat (Calc) 67.2 % (40-65) H 04/10/18 17:52 VBG Base Excess -0.4 mmol/L (0.0-2.0) L 04/10/18 17:52 VBG Hgb O2 Saturation 63.7 % (95.0-98.0) L 04/10/18 17:52 Hemoglobin 12.6 g/dL (11.7-17.4) 04/10/18 17:52 Total Bilirubin 0.4 mg/dl (0.2-1.3) 04/10/18 15:54 AST 18 U/L (14-36) 04/10/18 15:54 ALT 16 U/L (9-52) 04/10/18 15:54 Alkaline Phosphatase 100 U/L (38-126) 04/10/18 15:54 Total Protein 7.2 G/DL (6.3-8.2) 04/10/18 15:54 Albumin 3.6 g/dL (3.5-5.0) 04/10/18 15:54 Globulin 3.6 gm/dL (2.2-3.9) 04/10/18 15:54 Albumin/Globulin Ratio 1.0 (1.0-2.1) 04/10/18 15:54 Urine Color Yellow (YELLOW) 04/10/18 16:00 Urine Clarity Slighty-cloudy (Clear) 04/10/18 16:00 Urine pH 7.0 (5.0-8.0) 04/10/18 16:00 Ur Specific [place] 1.018 (1.003-1.030) 04/10/18 16:00 Urine Protein 100 mg/dL (NEGATIVE) 04/10/18 16:00 Urine Glucose (UA) Neg mg/dL (NEGATIVE) 04/10/18 16:00 Urine Ketones Negative mg/dL (NEGATIVE) 04/10/18 16:00 Urine Blood Small (NEGATIVE) 04/10/18 16:00 Urine Nitrate Positive (NEGATIVE) H 04/10/18 16:00 Urine Bilirubin Negative (NEGATIVE) 04/10/18 16:00 Urine Urobilinogen 0.2-1.0 mg/dL (0.2-1.0) 04/10/18 16:00 Ur Leukocyte Esterase Mod [place]/uL (Negative) 04/10/18 16:00 Urine RBC (Auto) 6 /hpf (0-3) H 04/10/18 16:00 Urine Microscopic WBC 52 /hpf (0-5) H 04/10/18 16:00 Ur Squamous Epith Cells < 1 /hpf (0-5) 04/10/18 16:00 Urine Bacteria Occ (<OCC) H 04/10/18 16:00 - ECG O2 Sat by Pulse Oximetry: 98 Medical Decision Making Medical Decision Making: Rule out Sepsis over Pyelo CBC CMP VBG Lactate UA and Culture Blood Culture CT Abd without x with Rocephin 1g Admit through Hospitalist Service CT Abd and Pelvis Without Contrast FINDINGS: LOWER THORAX: Unremarkable. LIVER: Hepatic steatosis. Prominent, for true naseem aunt left hepatic lobe. GALLBLADDER AND BILE DUCTS: Status post cholecystectomy. No abnormality is seen in the gallbladder fossa. PANCREAS: Stable cystic mass in the head of the pancreas measures 6.1 x 6.8 cm. This is better seen on the prior study of employing contrast enhancement. SPLEEN: Unremarkable. ADRENALS: Unremarkable. No mass. KIDNEYS AND URETERS: Atrophic left kidney, unremarkable right kidney. VASCULATURE: Unremarkable. No aortic aneurysm. Atherosclerotic calcification and mural plaque present. Findings are seen throughout the aorta BOWEL: Constipation without fecal impaction or obstruction. APPENDIX: Unremarkable. Normal appendix. PERITONEUM: Unremarkable. No free fluid. No free air. LYMPH NODES: Unremarkable. No enlarged lymph nodes. BLADDER: Unremarkable. REPRODUCTIVE: Unremarkable. BONES: No acute fracture. No significant interval change compared to the prior examination(s). OTHER FINDINGS: None. IMPRESSION: No acute findings related to/ accounting for the clinical presentation. Stable mass in the head of the pancreas. Main to the pancreas is unremarkable. Additional benign and/or incidental findings described above. No significant interval change compared to the prior examination(s). Disposition - Clinical Impression Clinical Impression: Pyelonephritis - Patient ED Disposition Is Patient to be Admitted: Yes Discussed With : Ari Mendez Doctor Will See Patient In The: Hospital Counseled Patient/Family Regarding: Studies Performed, Diagnosis, Need For Followup - Disposition Disposition Time: 19:12 Condition: STABLE Forms: [employer] (Croatian) - Pt Status Changed To: Hospital Disposition Of: Inpatient - Admit Certification Admit to Inpatient:: After my assessment, the patient will require hospitalization for at least two midnights. This is because of the severity of symptoms shown, intensity of services needed, and/or the medical risk in this patient being treated as an outpatient.
--- NOTE | 2018-04-10 19:01 | CT ---
Date of service: 04/10/2018 PROCEDURE: CT Abdomen and Pelvis without intravenous contrast HISTORY: Right flank pain. COMPARISON: 02/18/2018. CT abdomen pelvis. TECHNIQUE: Unenhanced. Neither IV nor oral contrast administered Radiation dose: Total exam DLP = inf_radiation_dlp mGy-cm. This CT exam was performed using one or more of the following dose reduction techniques: Automated exposure control, adjustment of the mA and/or kV according to patient size, and/or use of iterative reconstruction technique. FINDINGS: LOWER THORAX: Unremarkable. LIVER: Hepatic steatosis. Prominent, for true naseem aunt left hepatic lobe. GALLBLADDER AND BILE DUCTS: Status post cholecystectomy. No abnormality is seen in the gallbladder fossa. PANCREAS: Stable cystic mass in the head of the pancreas measures 6.1 x 6.8 cm. This is better seen on the prior study of employing contrast enhancement. SPLEEN: Unremarkable. ADRENALS: Unremarkable. No mass. KIDNEYS AND URETERS: Atrophic left kidney, unremarkable right kidney. VASCULATURE: Unremarkable. No aortic aneurysm. Atherosclerotic calcification and mural plaque present. Findings are seen throughout the aorta BOWEL: Constipation without fecal impaction or obstruction. APPENDIX: Unremarkable. Normal appendix. PERITONEUM: Unremarkable. No free fluid. No free air. LYMPH NODES: Unremarkable. No enlarged lymph nodes. BLADDER: Unremarkable. REPRODUCTIVE: Unremarkable. BONES: No acute fracture. No significant interval change compared to the prior examination(s). OTHER FINDINGS: None. IMPRESSION: No acute findings related to/ accounting for the clinical presentation. Stable mass in the head of the pancreas. Main to the pancreas is unremarkable. Additional benign and/or incidental findings described above. No significant interval change compared to the prior examination(s).
[2018-04-10] MEDS ORDERED: cefTRIAXone (Rocephin) 1 gm Inj ONE (19:14)
--- NOTE | 2018-04-10 19:32 | CP.PCM.HP ---
History of Present Illness - History of Present Illness History of Present Illness: 82 yo female with history of Dementia, DM2, COPD, HLD and HTN brought by daughter because right flank pain starting today accompanied with dysuria. Patient was diagnosed by her PCP recently and was put on Bactrim but her dysuria did not disappear and now started to have right flank pain. Denied fever or chills. Present on Admission - Present on Admission Any Indicators Present on Admission: No History of DVT/PE: No History of Uncontrolled Diabetes: No Urinary Catheter: No Decubitus Ulcer Present: No Review of Systems - Review of Systems All systems: reviewed and no additional remarkable complaints except (aside from those mentioned above, 12 points review were negative by me) Past Patient History - Tetanus Immunizations Tetanus Immunization: Unknown - Past Medical History & Family History Past Medical History?: Yes - Past Social History Smoking Status: Never Smoked Chewing Tobacco Use: No Cigar Use: No Alcohol: None Drugs: Denies Home Situation {Lives}: With Family - CARDIAC Hx Atrial Fibrillation: No Hx Cardia Arrhythmia: No Hx Congestive Heart Failure: No Hx Hypercholesterolemia: Yes Hx Hypertension: Yes Hx Mitral Valve Prolapse: No Hx Pacemaker: No Hx Peripheral Edema: No - PULMONARY Hx Chronic Obstructive Pulmonary Disease (COPD): Yes Hx Pneumonia: Yes - NEUROLOGICAL Hx Dementia: Yes Hx Seizures: Yes - HEENT Hx HEENT Problems: Yes - RENAL Hx Chronic Kidney Disease: Yes - ENDOCRINE/METABOLIC Hx Hypothyroidism: Yes - HEMATOLOGICAL/ONCOLOGICAL Hx Human Immunodeficiency Virus (HIV): No - INTEGUMENTARY Hx Dermatological Problems: No - MUSCULOSKELETAL/RHEUMATOLOGICAL Hx Arthritis: Yes (BOTH KNEES) - GASTROINTESTINAL Hx Gastrointestinal Disorders: No - GENITOURINARY/GYNECOLOGICAL Hx Genitourinary Disorders: No - PSYCHIATRIC Hx Anxiety: Yes Hx Depression: Yes - SURGICAL HISTORY Hx Cholecystectomy: Yes - ANESTHESIA Hx Anesthesia: Yes Hx Anesthesia Reactions: No Hx Malignant Hyperthermia: No Meds Allergies/Adverse Reactions: Allergies Allergy/AdvReac Type Severity Reaction Status Date / Time No Known Allergies Allergy Verified 04/10/18 14:49 Physical Exam - Constitutional Appears: No Acute Distress - Head Exam Head Exam: ATRAUMATIC - Eye Exam Eye Exam: absent: Scleral icterus - ENT Exam ENT Exam: Mucous Membranes Moist - Neck Exam Neck exam: Negative for: Meningismus - Respiratory Exam Respiratory Exam: absent: Rales, Rhonchi, Wheezes, Respiratory Distress - Cardiovascular Exam Cardiovascular Exam: REGULAR RHYTHM, +S1, +S2 - GI/Abdominal Exam GI & Abdominal Exam: Soft. absent: Tenderness - Rectal Exam Rectal Exam: Deferred - Back Exam Back exam: CVA tenderness (R) - Neurological Exam Neurological exam: Alert, Oriented x3 - Psychiatric Exam Psychiatric exam: Normal Affect - Skin Skin Exam: Dry, Intact Results - Vital Signs Recent Vital Signs: Last Vital Signs Temp 98.1 F 04/10/18 14:07 Pulse 84 04/10/18 16:49 Resp 16 04/10/18 14:07 BP 157/88 H 04/10/18 16:49 Pulse Ox 98 04/10/18 19:20 - Labs Result Diagrams: 04/10/18 15:54 04/10/18 15:54 Labs: Laboratory Results - last 24 hr 04/10/18 04/10/18 04/10/18 15:54 15:54 16:00 WBC 14.1 H RBC 5.05 Hgb 12.7 Hct 40.7 MCV 80.6 L MCH 25.0 L MCHC 31.1 L RDW 17.6 H Plt Count 406 H MPV 6.9 L Neut % (Auto) 75.9 H Lymph % (Auto) 17.1 L [place] % (Auto) 5.4 Eos % (Auto) 0.8 Baso % (Auto) 0.8 Neut # (Auto) 10.7 H Lymph # (Auto) 2.4 [place] # (Auto) 0.8 Eos # (Auto) 0.1 Baso # (Auto) 0.1 pO2 ABG Carboxyhemoglobin POC ABG HHb (Measured) ABG Methemoglobin VBG pH VBG pCO2 VBG HCO3 VBG O2 Sat (Calc) VBG Base Excess VBG Hgb O2 Saturation Hemoglobin Sodium 134 Potassium 4.7 Chloride 96 L Carbon Dioxide 24 Anion Gap 19 BUN 19 H Creatinine 1.2 Est GFR ( Amer) 52 Est GFR (Non-Af Amer) 43 Random Glucose 91 Lactic Acid Calcium 9.0 Total Bilirubin 0.4 AST 18 ALT 16 Alkaline Phosphatase 100 Total Protein 7.2 Albumin 3.6 Globulin 3.6 Albumin/Globulin Ratio 1.0 Urine Color Yellow Urine Clarity Slighty-cloudy Urine pH 7.0 Ur Specific [place] 1.018 Urine Protein 100 Urine Glucose (UA) Neg Urine Ketones Negative Urine Blood Small Urine Nitrate Positive H Urine Bilirubin Negative Urine Urobilinogen 0.2-1.0 Ur Leukocyte Esterase Mod Urine RBC (Auto) 6 H Urine Microscopic WBC 52 H Ur Squamous Epith Cells < 1 Urine Bacteria Occ H 04/10/18 04/10/18 17:52 18:14 WBC RBC Hgb Hct MCV MCH MCHC RDW Plt Count MPV Neut % (Auto) Lymph % (Auto) [place] % (Auto) Eos % (Auto) Baso % (Auto) Neut # (Auto) Lymph # (Auto) [place] # (Auto) Eos # (Auto) Baso # (Auto) pO2 32 ABG Carboxyhemoglobin 1.7 H POC ABG HHb (Measured) 31.1 H ABG Methemoglobin 3.4 H VBG pH 7.34 VBG pCO2 48 VBG HCO3 23.8 VBG O2 Sat (Calc) 67.2 H VBG Base Excess -0.4 L VBG Hgb O2 Saturation 63.7 L Hemoglobin 12.6 Sodium Potassium Chloride Carbon Dioxide Anion Gap BUN Creatinine Est GFR ( Amer) Est GFR (Non-Af Amer) Random Glucose Lactic Acid 0.8 Calcium Total Bilirubin AST ALT Alkaline Phosphatase Total Protein Albumin Globulin Albumin/Globulin Ratio Urine Color Urine Clarity Urine pH Ur Specific [place] Urine Protein Urine Glucose (UA) Urine Ketones Urine Blood Urine Nitrate Urine Bilirubin Urine Urobilinogen Ur Leukocyte Esterase Urine RBC (Auto) Urine Microscopic WBC Ur Squamous Epith Cells Urine Bacteria Assessment & Plan - Assessment and Plan (Free Text) Assessment: 82 yo female with history of Dementia, DM2, COPD, HLD and HTN brought by daughter because right flank pain starting today accompanied with dysuria. Patient was diagnosed by her PCP recently and was put on Bactrim but her dysuria did not disappear and now started to have right flank pain. Denied fever or chills. 1. Pyelonephritis blood and urine culture Rocephin 1gm IV daily 2. Dementia continue Lexapro and Risperidone 3. DM2 BS controlled HgA1C, BMP in am continue Metformin 500mg PO BID 4. COPD asymptomatic Montelukast 10mg PO daily Duoneb q 4hrs prn 5. HLD Lipitor 40mg PO HS 6. HTN BP elevated continue monitoring BP Losartan 100mg PO daily 7. DVT prophylaxis Lovenox 40mg SC daily
[2018-04-10] MEDS: Sodium Chloride 0.9% 1,000 ML IV SCH (20:40)
[2018-04-11] MEDS: Sodium Chloride 0.9% 1,000 ML IV SCH ×2 (05:37→16:44)
[2018-04-11] MEDS: Levothyroxine 25 MCG TAB PO SCH ×2 (05:39→10:32)
[2018-04-11 05:59] LABS: BASO # 0.1 K/uL (0.0-0.2); BASO % 0.6 % (0.0-2.0); EOS # 0.1 K/uL (0.0-0.7); HEMOGLOBIN 11.4 g/dL (12.0-16.0); LYMPH % 16.5 % (20.0-40.0); MEAN CELL VOLUME 81.5 fl (81.0-99.0); MEAN CORPUSCULAR HEMOGLOBIN 25.3 pg (27.0-31.0); MEAN CORPUSCULAR HGB CONC 31.1 g/dL (33.0-37.0); MEAN PLATELET VOLUME 6.9 fl (7.2-11.7); MONO # 0.5 K/uL (0.0-0.8); MONO % 3.9 % (0.0-10.0); NEUT # 9.5 K/uL (1.8-7.0); RBC 4.5 Mil/uL (3.80-5.20); RED CELL DISTRIBUTION WIDTH 17.8 % (11.5-14.5); WHITE BLOOD COUNT 12.2 K/uL (4.8-10.8)
[2018-04-11 06:18] LABS: CALCIUM 8.4 mg/dL (8.4-10.2)
--- NOTE | 2018-04-11 08:57 | CP.PCM.PN ---
<Milena Vargas - Last Filed: 04/11/18 11:38> Subjective - Date & Time of Evaluation Date of Evaluation: 04/11/18 Time of Evaluation: 08:54 - Subjective Subjective: Patient seen and examined at bedside. Son is at bedside, Patient reports improvement of back pain, SOB, chest pain, and leg swelling. Feels better when sitting up. Objective - Vital Signs/Intake and Output Vital Signs (last 24 hours): Temp Pulse Resp BP Pulse Ox 97.9 F 78 19 134/72 94 L 04/11/18 07:27 04/11/18 07:27 04/11/18 07:27 04/11/18 07:27 04/11/18 07:27 - Medications Medications: Current Medications Acetaminophen (Tylenol 325mg Tab) 650 mg PO Q6 PRN PRN Reason: Pain, Mild (1-3) Alprazolam (Xanax) 0.5 mg PO HS [facility] Last Admin: 04/10/18 22:07 Dose: 0.5 mg Docusate Sodium (Colace) 100 mg PO BID [facility] Enoxaparin Sodium (Lovenox) 40 mg SC DAILY [facility]; Protocol Escitalopram Oxalate (Lexapro) 5 mg PO DAILY [facility] Furosemide (Lasix) 20 mg PO DAILY [facility] Last Admin: 04/10/18 22:03 Dose: 20 mg Sodium Chloride (Sodium Chloride 0.9%) 1,000 mls @ 100 mls/hr IV .Q10H [facility] Last Admin: 04/11/18 05:37 Dose: 100 mls/hr Ceftriaxone Sodium 1 gm/ (Sodium Chloride) 100 mls @ 100 mls/hr IVPB DAILY [facility]; Protocol Levothyroxine Sodium (Synthroid) 25 mcg PO DAILY [facility] Last Admin: 04/11/18 05:39 Dose: 25 mcg Losartan Potassium (Cozaar) 100 mg PO DAILY [facility] Metformin HCl (Glucophage) 500 mg PO BID [facility] Montelukast Sodium (Singulair) 10 mg PO DAILY [facility] Pantoprazole Sodium (Protonix Ec Tab) 40 mg PO DAILY [facility] Paroxetine HCl (Paxil) 40 mg PO DAILY [facility] Risperidone (Risperdal Tab) 0.25 mg PO HS [facility] Last Admin: 04/10/18 22:04 Dose: 0.25 mg Zolpidem Tartrate (Ambien) 5 mg PO HS [facility] Last Admin: 04/10/18 22:04 Dose: 5 mg - Labs Labs: 04/11/18 05:50 04/11/18 05:50 - Constitutional Appears: No Acute Distress - ENT Exam ENT Exam: Mucous Membranes Moist - Respiratory Exam Respiratory Exam: Rales, NORMAL BREATHING PATTERN. absent: Rhonchi, Wheezes - Cardiovascular Exam Cardiovascular Exam: REGULAR RHYTHM, +S1, +S2 - GI/Abdominal Exam GI & Abdominal Exam: Soft, Normal Bowel Sounds. absent: Tenderness - Back Exam Back Exam: CVA tenderness (L), CVA tenderness (R) - Neurological Exam Neurological Exam: Alert, Awake - Psychiatric Exam Psychiatric exam: Flat Affect - Skin Skin Exam: Dry, Intact, Warm Assessment and Plan - Assessment and Plan (Free Text) Assessment: 82 yo female w/ pmhx of Dementia, DM2, COPD, HLD and HTN admitted due to pyelonephritis. Pyelonephritis Leukocytosis improving 14.1 ->12.2 U/A +nitrates, +leukocyte esterase, +rbc, +wbcs, +bacteria urine culture + for negative rods blood culture pending cont Rocephin 1gm IV daily, awaiting sensitivity results Hx of HTN Chronic, elevated BP Losartan 100mg PO daily and Lasix 20mg PO QD continue monitoring BP DM2 BS controlled BMP wnl HgA1C pending continue Metformin 500mg PO BID COPD Chronic. Stable. Asymptomatic Montelukast 10mg PO daily Duoneb q 4hrs prn Hx of Anxiety Cont. home meds Lexapro 5mg PO QD Paxil 40mg PO QD Ambien 5mg PO HS Xanax 0.5mg PO HS Dementia Cont home meds Risperidone 0.25mg PO QD HLD Lipitor 40mg PO HS DVT prophylaxis Lovenox 40mg SC daily <Ari Mendez D - Last Filed: 04/11/18 16:07> Objective - Vital Signs/Intake and Output Vital Signs (last 24 hours): Temp Pulse Resp BP Pulse Ox 98.5 F 82 20 166/81 H 95 04/11/18 15:45 04/11/18 15:45 04/11/18 15:45 04/11/18 15:45 04/11/18 15:45 - Medications Medications: Current Medications Acetaminophen (Tylenol 325mg Tab) 650 mg PO Q6 PRN PRN Reason: Pain, Mild (1-3) Alprazolam (Xanax) 0.5 mg PO HS [facility] Last Admin: 04/10/18 22:07 Dose: 0.5 mg Docusate Sodium (Colace) 100 mg PO BID [facility] Last Admin: 04/11/18 10:28 Dose: 100 mg Enoxaparin Sodium (Lovenox) 40 mg SC DAILY [facility]; Protocol Last Admin: 04/11/18 10:32 Dose: 40 mg Escitalopram Oxalate (Lexapro) 5 mg PO DAILY [facility] Last Admin: 04/11/18 10:30 Dose: 5 mg Furosemide (Lasix) 20 mg PO DAILY [facility] Last Admin: 04/11/18 10:30 Dose: 20 mg Sodium Chloride (Sodium Chloride 0.9%) 1,000 mls @ 100 mls/hr IV .Q10H [facility] Last Admin: 04/11/18 05:37 Dose: 100 mls/hr Ceftriaxone Sodium 1 gm/ (Sodium Chloride) 100 mls @ 100 mls/hr IVPB DAILY [facility]; Protocol Levothyroxine Sodium (Synthroid) 25 mcg PO DAILY [facility] Last Admin: 04/11/18 10:32 Dose: 25 mcg Losartan Potassium (Cozaar) 100 mg PO DAILY [facility] Last Admin: 04/11/18 10:29 Dose: 100 mg Metformin HCl (Glucophage) 500 mg PO BID [facility] Last Admin: 04/11/18 10:30 Dose: 500 mg Montelukast Sodium (Singulair) 10 mg PO DAILY [facility] Last Admin: 04/11/18 10:31 Dose: 10 mg Pantoprazole Sodium (Protonix Ec Tab) 40 mg PO DAILY [facility] Last Admin: 04/11/18 10:31 Dose: 40 mg Paroxetine HCl (Paxil) 40 mg PO DAILY [facility] Last Admin: 04/11/18 10:31 Dose: 40 mg Risperidone (Risperdal Tab) 0.25 mg PO HS [facility] Last Admin: 04/10/18 22:04 Dose: 0.25 mg Zolpidem Tartrate (Ambien) 5 mg PO HS [facility] Last Admin: 04/10/18 22:04 Dose: 5 mg - Labs Labs: 04/11/18 05:50 04/11/18 05:50 Attending/Attestation - Attestation I have personally seen and examined this patient.: Yes I have fully participated in the care of the patient.: Yes I have reviewed all pertinent clinical information, including history, physical exam and plan: Yes Notes (Text): 04/11/18 16:06 Patient seen and examined with resident. Case discussed and agreed with assessment and plans.
[2018-04-11] MEDS: Pantoprazole 40 mg EC Tab PO SCH (10:31)
[2018-04-11] MEDS: Enoxaparin 40 mg Syringe SC SCH (10:32)
--- NOTE | 2018-04-11 12:25 | PQF ---
PROVIDER RESPONSE TEXT: CKD REVIEWER QUERY TEXT: Conflicting Documentation Clarification A single mention of ESRD and CKD is listed in the ER record. Please document if the condition is: -- Confirmed and current -- Ruled out -- Other, please specify --Unable to determine BUN:19->16 Creatinine:1.2->1.2 Est GFR ( Amer):52->52 Est GFR (Non-Af Amer):43-.43 The patient's Clinical Indicators include: --- Query created by: Ginny Wise on 04/11/2018 12:12 PM Electronically signed by: Ari Mendez MD 04/11/2018 12:21 PM
--- NOTE | 2018-04-11 12:25 | PQF ---
PROVIDER RESPONSE TEXT: unknown REVIEWER QUERY TEXT: Dementia Type and Associated Features Dementia is documented in the Medical Record. Please specify any associated features and the type Such as: -- Senile -- Alzheimer?s -- Vascular -- Frontal -- Frontotemporal -- Lewy body -- Other, please specify Please also specify any behavioral disturbances Such as: -- Aggressive -- Violent -- Combative behavior -- Other, please specify H and P includes: Dementia: continue Lexapro and Risperidone The patient's Clinical Indicators include: ----- Query created by: Ginny Wise on 04/11/2018 12:13 PM Electronically signed by: Ari Mendez MD 04/11/2018 12:21 PM
--- NOTE | 2018-04-11 12:25 | PQF ---
PROVIDER RESPONSE TEXT: acute REVIEWER QUERY TEXT: Acuity Specificity Pyelonephritis is documented in the Medical Record. Please specify the acuity of this condition with terms such as: -- Acute -- Chronic -- Acute and chronic -- Acute on chronic -- Other (please specify in the medical record) H and P includes: Pyelonephritis ;blood and urine culture Rocephin 1gm IV daily The patient's Clinical Indicators include: --- Query created by: Ginny Wise on 04/11/2018 12:13 PM Electronically signed by: Ari Mendez MD 04/11/2018 12:21 PM
[2018-04-12] MEDS: Sodium Chloride 0.9% 1,000 ML IV SCH ×3 (02:15→20:55)
[2018-04-12] MEDS: Levothyroxine 25 MCG TAB PO SCH (08:07)
[2018-04-12 08:10] LABS: BASO # 0.1 K/uL (0.0-0.2); BASO % 0.5 % (0.0-2.0); EOS # 0.3 K/uL (0.0-0.7); EOS % 2.5 % (0.0-4.0); HEMOGLOBIN 11.2 g/dL (12.0-16.0); LYMPH % 17.2 % (20.0-40.0); MEAN CELL VOLUME 81.4 fl (81.0-99.0); MEAN CORPUSCULAR HEMOGLOBIN 25.4 pg (27.0-31.0); MEAN CORPUSCULAR HGB CONC 31.2 g/dL (33.0-37.0); MEAN PLATELET VOLUME 7.5 fl (7.2-11.7); MONO # 0.5 K/uL (0.0-0.8); MONO % 4.5 % (0.0-10.0); NEUT # 8.9 K/uL (1.8-7.0); NEUT % 75.3 % (50.0-75.0); NRBC % 0.2 % (0.0-0.0); RBC 4.41 Mil/uL (3.80-5.20); RED CELL DISTRIBUTION WIDTH 17.9 % (11.5-14.5); WHITE BLOOD COUNT 11.8 K/uL (4.8-10.8)
[2018-04-12 08:40] LABS: ALB/GLOB RATIO 0.9 (1.0-2.1); ALBUMIN 2.9 g/dL (3.5-5.0); CALCIUM 8.4 mg/dL (8.4-10.2)
[2018-04-12] MEDS: Enoxaparin 40 mg Syringe SC SCH (09:17)
[2018-04-12] MEDS: Pantoprazole 40 mg EC Tab PO SCH (09:18)
[2018-04-12] MEDS ORDERED: Meropenem 1 GM in Sodium Chloride 0.9% 100 ML IVPB SCH (11:15)
--- NOTE | 2018-04-12 13:07 | CP.PCM.CON ---
History of Present Illness - History of Present Illness History of Present Illness: Infectious Disease Consultation Note- asked to see this patietn at the request of for Pyelonephritis and ESBL e.coli UTI. HPI- Patient is a pleasant 82 year old femela with PMH of DM II, HTN, COPD, HLD who was brought to the hospital for evaluation of right flank pain and dysurea. Patient was diagnosed by her PCP recently and was put on Bactrim but her dysuria did not disappear and now started to have right flank pain. Patient denies any fever or chills, deneis any nausea or vomiting, denies any diarrhea. states pain is in her right flank and she states her dysurea is less now. Review of Systems - Review of Systems Review of Systems: ROS- denies any fever or chills, denies any FRAZIER, denies any cough or sob, denies any chest pain, denies any nausea or vomiting, + right flank pain , + dysurea but is less now, denies any diarrhea Past Patient History - Tetanus Immunizations Tetanus Immunization: Unknown - Past Medical History & Family History Past Medical History?: Yes - Past Social History Smoking Status: Never Smoked - CARDIAC Hx Cardiac Disorders: Yes Hx Cardia Arrhythmia: No Hx Hypercholesterolemia: Yes Hx Hypertension: Yes - PULMONARY Hx Respiratory Disorders: Yes Hx Chronic Obstructive Pulmonary Disease (COPD): Yes Hx Pneumonia: Yes - NEUROLOGICAL Hx Neurological Disorder: Yes Hx Dementia: Yes Hx Seizures: Yes - HEENT Hx HEENT Problems: Yes - RENAL Hx Chronic Kidney Disease: Yes - ENDOCRINE/METABOLIC Hx Endocrine Disorders: Yes Hx Hypothyroidism: Yes - HEMATOLOGICAL/ONCOLOGICAL Hx Blood Disorders: No Hx Unexplained Bleeding: No - INTEGUMENTARY Hx Dermatological Problems: No - MUSCULOSKELETAL/RHEUMATOLOGICAL Hx Musculoskeletal Disorders: No Hx Falls: No - GASTROINTESTINAL Hx Gastrointestinal Disorders: No - GENITOURINARY/GYNECOLOGICAL Hx Genitourinary Disorders: No - PSYCHIATRIC Hx Substance Use: No - SURGICAL HISTORY Hx Surgeries: Yes Hx Cholecystectomy: Yes - ANESTHESIA Hx Anesthesia: Yes Hx Anesthesia Reactions: No Hx Malignant Hyperthermia: No Meds Allergies/Adverse Reactions: Allergies Allergy/AdvReac Type Severity Reaction Status Date / Time No Known Allergies Allergy Verified 04/10/18 14:49 - Medications Medications: Current Medications Acetaminophen (Tylenol 325mg Tab) 650 mg PO Q6 PRN PRN Reason: Pain, Mild (1-3) Last Admin: 04/12/18 09:33 Dose: 650 mg Alprazolam (Xanax) 0.5 mg PO HS [facility] Last Admin: 04/11/18 22:11 Dose: 0.5 mg Docusate Sodium (Colace) 100 mg PO BID [facility] Last Admin: 04/12/18 09:15 Dose: 100 mg Enoxaparin Sodium (Lovenox) 40 mg SC DAILY [facility]; Protocol Last Admin: 04/12/18 09:17 Dose: 40 mg Escitalopram Oxalate (Lexapro) 5 mg PO DAILY [facility] Last Admin: 04/12/18 09:17 Dose: 5 mg Furosemide (Lasix) 20 mg PO DAILY [facility] Last Admin: 04/12/18 09:14 Dose: 20 mg Sodium Chloride (Sodium Chloride 0.9%) 1,000 mls @ 100 mls/hr IV .Q10H [facility] Last Admin: 04/12/18 02:15 Dose: 100 mls/hr Meropenem 1 gm/ Sodium (Chloride) 100 mls @ 100 mls/hr IVPB Q8 [facility]; Protocol Levothyroxine Sodium (Synthroid) 25 mcg PO DAILY@0630 [facility] Last Admin: 04/12/18 08:07 Dose: 25 mcg Losartan Potassium (Cozaar) 100 mg PO DAILY [facility] Last Admin: 04/12/18 09:16 Dose: 100 mg Metformin HCl (Glucophage) 500 mg PO BID [facility] Last Admin: 04/12/18 09:17 Dose: 500 mg Montelukast Sodium (Singulair) 10 mg PO DAILY [facility] Last Admin: 04/12/18 09:19 Dose: 10 mg Pantoprazole Sodium (Protonix Ec Tab) 40 mg PO DAILY [facility] Last Admin: 04/12/18 09:18 Dose: 40 mg Paroxetine HCl (Paxil) 40 mg PO DAILY [facility] Last Admin: 04/12/18 09:18 Dose: 40 mg Risperidone (Risperdal Tab) 0.25 mg PO [facility] Last Admin: 04/11/18 22:12 Dose: 0.25 mg Zolpidem Tartrate (Ambien) 5 mg PO HS [facility] Last Admin: 04/11/18 23:00 Dose: Not Given Physical Exam - Constitutional Appears: No Acute Distress - Head Exam Head Exam: ATRAUMATIC - Eye Exam Eye Exam: EOMI, PERRL - ENT Exam ENT Exam: Normal Oropharynx - Neck Exam Neck exam: Positive for: Full Rom - Respiratory Exam Respiratory Exam: Clear to Auscultation Bilateral, NORMAL BREATHING PATTERN - Cardiovascular Exam Cardiovascular Exam: RRR, +S1, +S2 - GI/Abdominal Exam GI & Abdominal Exam: Normal Bowel Sounds, Soft Additional comments: No Distention Right CVA Tenderness - Extremities Exam Extremities exam: Positive for: normal inspection - Neurological Exam Neurological exam: Alert, Oriented x3 Results - Vital Signs Recent Vital Signs: Last Vital Signs Temp 98.0 F 04/12/18 09:00 Pulse 75 04/12/18 09:16 Resp 19 04/12/18 09:00 BP 135/75 04/12/18 09:16 Pulse Ox 95 04/12/18 09:00 - Labs Result Diagrams: 04/12/18 08:03 04/12/18 08:03 Labs: Laboratory Results - last 24 hr 04/11/18 04/11/18 04/12/18 15:36 21:17 05:16 WBC RBC Hgb Hct MCV MCH MCHC RDW Plt Count MPV Neut % (Auto) Lymph % (Auto) [place] % (Auto) Eos % (Auto) Baso % (Auto) Neut # (Auto) Lymph # (Auto) [place] # (Auto) Eos # (Auto) Baso # (Auto) Sodium Potassium Chloride Carbon Dioxide Anion Gap BUN Creatinine Est GFR ( Amer) Est GFR (Non-Af Amer) POC Glucose (mg/dL) 90 107 95 Random Glucose Calcium Total Bilirubin AST ALT Alkaline Phosphatase Total Protein Albumin Globulin Albumin/Globulin Ratio 04/12/18 04/12/18 04/12/18 08:03 08:03 10:57 WBC 11.8 H RBC 4.41 Hgb 11.2 L Hct 35.9 MCV 81.4 MCH 25.4 L MCHC 31.2 L RDW 17.9 H Plt Count 337 MPV 7.5 Neut % (Auto) 75.3 H Lymph % (Auto) 17.2 L [place] % (Auto) 4.5 Eos % (Auto) 2.5 Baso % (Auto) 0.5 Neut # (Auto) 8.9 H Lymph # (Auto) 2.0 [place] # (Auto) 0.5 Eos # (Auto) 0.3 Baso # (Auto) 0.1 Sodium 137 Potassium 4.3 Chloride 101 Carbon Dioxide 26 Anion Gap 14 BUN 21 H Creatinine 1.3 H Est GFR ( Amer) 47 Est GFR (Non-Af Amer) 39 POC Glucose (mg/dL) 158 H Random Glucose 109 H Calcium 8.4 Total Bilirubin 0.2 AST 13 L D ALT 24 Alkaline Phosphatase 77 Total Protein 6.0 L Albumin 2.9 L Globulin 3.1 Albumin/Globulin Ratio 0.9 L Laboratory Results - last 72 hr 04/10/18 04/10/18 04/10/18 15:54 15:54 16:00 WBC 14.1 H RBC 5.05 Hgb 12.7 Hct 40.7 MCV 80.6 L MCH 25.0 L MCHC 31.1 L RDW 17.6 H Plt Count 406 H MPV 6.9 L Neut % (Auto) 75.9 H Lymph % (Auto) 17.1 L [place] % (Auto) 5.4 Eos % (Auto) 0.8 Baso % (Auto) 0.8 Neut # (Auto) 10.7 H Lymph # (Auto) 2.4 [place] # (Auto) 0.8 Eos # (Auto) 0.1 Baso # (Auto) 0.1 pO2 ABG Carboxyhemoglobin POC ABG HHb (Measured) ABG Methemoglobin VBG pH VBG pCO2 VBG HCO3 VBG O2 Sat (Calc) VBG Base Excess VBG Hgb O2 Saturation Hemoglobin Sodium 134 Potassium 4.7 Chloride 96 L Carbon Dioxide 24 Anion Gap 19 BUN 19 H Creatinine 1.2 Est GFR ( Amer) 52 Est GFR (Non-Af Amer) 43 POC Glucose (mg/dL) Random Glucose 91 Lactic Acid Calcium 9.0 Total Bilirubin 0.4 AST 18 ALT 16 Alkaline Phosphatase 100 Total Protein 7.2 Albumin 3.6 Globulin 3.6 Albumin/Globulin Ratio 1.0 TSH 3rd Generation Urine Color Yellow Urine Clarity Slighty-cloudy Urine pH 7.0 Ur Specific [place] 1.018 Urine Protein 100 Urine Glucose (UA) Neg Urine Ketones Negative Urine Blood Small Urine Nitrate Positive H Urine Bilirubin Negative Urine Urobilinogen 0.2-1.0 Ur Leukocyte Esterase Mod Urine RBC (Auto) 6 H Urine Microscopic WBC 52 H Ur Squamous Epith Cells < 1 Urine Bacteria Occ H 04/10/18 04/10/18 04/10/18 17:52 18:14 20:39 WBC RBC Hgb Hct MCV MCH MCHC RDW Plt Count MPV Neut % (Auto) Lymph % (Auto) [place] % (Auto) Eos % (Auto) Baso % (Auto) Neut # (Auto) Lymph # (Auto) [place] # (Auto) Eos # (Auto) Baso # (Auto) pO2 32 ABG Carboxyhemoglobin 1.7 H POC ABG HHb (Measured) 31.1 H ABG Methemoglobin 3.4 H VBG pH 7.34 VBG pCO2 48 VBG HCO3 23.8 VBG O2 Sat (Calc) 67.2 H VBG Base Excess -0.4 L VBG Hgb O2 Saturation 63.7 L Hemoglobin 12.6 Sodium Potassium Chloride Carbon Dioxide Anion Gap BUN Creatinine Est GFR ( Amer) Est GFR (Non-Af Amer) POC Glucose (mg/dL) 106 Random Glucose Lactic Acid 0.8 Calcium Total Bilirubin AST ALT Alkaline Phosphatase Total Protein Albumin Globulin Albumin/Globulin Ratio TSH 3rd Generation Urine Color Urine Clarity Urine pH Ur Specific [place] Urine Protein Urine Glucose (UA) Urine Ketones Urine Blood Urine Nitrate Urine Bilirubin Urine Urobilinogen Ur Leukocyte Esterase Urine RBC (Auto) Urine Microscopic WBC Ur Squamous Epith Cells Urine Bacteria 04/11/18 04/11/18 04/11/18 05:32 05:50 05:50 WBC 12.2 H RBC 4.50 Hgb 11.4 L Hct 36.7 MCV 81.5 MCH 25.3 L MCHC 31.1 L RDW 17.8 H Plt Count 362 MPV 6.9 L Neut % (Auto) 78.0 H Lymph % (Auto) 16.5 L [place] % (Auto) 3.9 Eos % (Auto) 1.0 Baso % (Auto) 0.6 Neut # (Auto) 9.5 H Lymph # (Auto) 2.0 [place] # (Auto) 0.5 Eos # (Auto) 0.1 Baso # (Auto) 0.1 pO2 ABG Carboxyhemoglobin POC ABG HHb (Measured) ABG Methemoglobin VBG pH VBG pCO2 VBG HCO3 VBG O2 Sat (Calc) VBG Base Excess VBG Hgb O2 Saturation Hemoglobin Sodium 135 Potassium 4.8 Chloride 100 Carbon Dioxide 27 Anion Gap 13 BUN 16 Creatinine 1.2 Est GFR ( Amer) 52 Est GFR (Non-Af Amer) 43 POC Glucose (mg/dL) 95 Random Glucose 99 Lactic Acid Calcium 8.4 Total Bilirubin AST ALT Alkaline Phosphatase Total Protein Albumin Globulin Albumin/Globulin Ratio TSH 3rd Generation 0.65 Urine Color Urine Clarity Urine pH Ur Specific [place] Urine Protein Urine Glucose (UA) Urine Ketones Urine Blood Urine Nitrate Urine Bilirubin Urine Urobilinogen Ur Leukocyte Esterase Urine RBC (Auto) Urine Microscopic WBC Ur Squamous Epith Cells Urine Bacteria 04/11/18 04/11/18 04/11/18 10:17 15:36 21:17 WBC RBC Hgb Hct MCV MCH MCHC RDW Plt Count MPV Neut % (Auto) Lymph % (Auto) [place] % (Auto) Eos % (Auto) Baso % (Auto) Neut # (Auto) Lymph # (Auto) [place] # (Auto) Eos # (Auto) Baso # (Auto) pO2 ABG Carboxyhemoglobin POC ABG HHb (Measured) ABG Methemoglobin VBG pH VBG pCO2 VBG HCO3 VBG O2 Sat (Calc) VBG Base Excess VBG Hgb O2 Saturation Hemoglobin Sodium Potassium Chloride Carbon Dioxide Anion Gap BUN Creatinine Est GFR ( Amer) Est GFR (Non-Af Amer) POC Glucose (mg/dL) 133 H 90 107 Random Glucose Lactic Acid Calcium Total Bilirubin AST ALT Alkaline Phosphatase Total Protein Albumin Globulin Albumin/Globulin Ratio TSH 3rd Generation Urine Color Urine Clarity Urine pH Ur Specific [place] Urine Protein Urine Glucose (UA) Urine Ketones Urine Blood Urine Nitrate Urine Bilirubin Urine Urobilinogen Ur Leukocyte Esterase Urine RBC (Auto) Urine Microscopic WBC Ur Squamous Epith Cells Urine Bacteria 04/12/18 04/12/18 04/12/18 05:16 08:03 08:03 WBC 11.8 H RBC 4.41 Hgb 11.2 L Hct 35.9 MCV 81.4 MCH 25.4 L MCHC 31.2 L RDW 17.9 H Plt Count 337 MPV 7.5 Neut % (Auto) 75.3 H Lymph % (Auto) 17.2 L [place] % (Auto) 4.5 Eos % (Auto) 2.5 Baso % (Auto) 0.5 Neut # (Auto) 8.9 H Lymph # (Auto) 2.0 [place] # (Auto) 0.5 Eos # (Auto) 0.3 Baso # (Auto) 0.1 pO2 ABG Carboxyhemoglobin POC ABG HHb (Measured) ABG Methemoglobin VBG pH VBG pCO2 VBG HCO3 VBG O2 Sat (Calc) VBG Base Excess VBG Hgb O2 Saturation Hemoglobin Sodium 137 Potassium 4.3 Chloride 101 Carbon Dioxide 26 Anion Gap 14 BUN 21 H Creatinine 1.3 H Est GFR ( Amer) 47 Est GFR (Non-Af Amer) 39 POC Glucose (mg/dL) 95 Random Glucose 109 H Lactic Acid Calcium 8.4 Total Bilirubin 0.2 AST 13 L D ALT 24 Alkaline Phosphatase 77 Total Protein 6.0 L Albumin 2.9 L Globulin 3.1 Albumin/Globulin Ratio 0.9 L TSH 3rd Generation Urine Color Urine Clarity Urine pH Ur Specific [place] Urine Protein Urine Glucose (UA) Urine Ketones Urine Blood Urine Nitrate Urine Bilirubin Urine Urobilinogen Ur Leukocyte Esterase Urine RBC (Auto) Urine Microscopic WBC Ur Squamous Epith Cells Urine Bacteria 04/12/18 04/12/18 10:57 15:38 WBC RBC Hgb Hct MCV MCH MCHC RDW Plt Count MPV Neut % (Auto) Lymph % (Auto) [place] % (Auto) Eos % (Auto) Baso % (Auto) Neut # (Auto) Lymph # (Auto) [place] # (Auto) Eos # (Auto) Baso # (Auto) pO2 ABG Carboxyhemoglobin POC ABG HHb (Measured) ABG Methemoglobin VBG pH VBG pCO2 VBG HCO3 VBG O2 Sat (Calc) VBG Base Excess VBG Hgb O2 Saturation Hemoglobin Sodium Potassium Chloride Carbon Dioxide Anion Gap BUN Creatinine Est GFR ( Amer) Est GFR (Non-Af Amer) POC Glucose (mg/dL) 158 H 109 Random Glucose Lactic Acid Calcium Total Bilirubin AST ALT Alkaline Phosphatase Total Protein Albumin Globulin Albumin/Globulin Ratio TSH 3rd Generation Urine Color Urine Clarity Urine pH Ur Specific [place] Urine Protein Urine Glucose (UA) Urine Ketones Urine Blood Urine Nitrate Urine Bilirubin Urine Urobilinogen Ur Leukocyte Esterase Urine RBC (Auto) Urine Microscopic WBC Ur Squamous Epith Cells Urine Bacteria Microbiology 04/10/18 16:00 Urine Random Urine Culture - Final Escherichia Coli 04/10/18 18:15 Blood-Venous Blood Culture - Preliminary NO GROWTH AFTER 24 HOURS Assessment & Plan (1) Pyelonephritis Status: Acute (2) Infection due to ESBL-producing Escherichia coli Status: Acute (3) UTI (urinary tract infection) Status: Acute - Assessment and Plan (Free Text) Assessment: A/P- 82 year old female admitted with dysurea and right flank pain found to have E.Coli ESBL UTI. afebrile leukocytosis trending down UA-positive Urine cx- ESBL e.coli Blood cx- neg PLan- advise to start pt. on IV meropebnem to treat the ESBL e.coli UTI ? pyelo. will need at least & dauys of IV meropenem. abd CT report- ? pancreatic mass advise to have evaluation of this by either GI or sugical team. All above d/w patient and she verbalizes full understanding of all above. Thank you for allowing me to take part in the care of this patient.
--- NOTE | 2018-04-12 16:54 | CP.PCM.PN ---
Subjective - Date & Time of Evaluation Date of Evaluation: 04/12/18 Time of Evaluation: 10:00 - Subjective Subjective: Patient seen and examined. Claimed through her daughter that was feeling much better. Objective - Vital Signs/Intake and Output Vital Signs (last 24 hours): Temp Pulse Resp BP Pulse Ox 99.5 F 74 20 151/71 H 96 04/12/18 16:23 04/12/18 16:23 04/12/18 16:23 04/12/18 16:23 04/12/18 16:23 - Medications Medications: Current Medications Acetaminophen (Tylenol 325mg Tab) 650 mg PO Q6 PRN PRN Reason: Pain, Mild (1-3) Last Admin: 04/12/18 09:33 Dose: 650 mg Alprazolam (Xanax) 0.5 mg PO HS [facility] Last Admin: 04/11/18 22:11 Dose: 0.5 mg Docusate Sodium (Colace) 100 mg PO BID [facility] Last Admin: 04/12/18 16:29 Dose: 100 mg Enoxaparin Sodium (Lovenox) 40 mg SC DAILY [facility]; Protocol Last Admin: 04/12/18 09:17 Dose: 40 mg Escitalopram Oxalate (Lexapro) 5 mg PO DAILY [facility] Last Admin: 04/12/18 09:17 Dose: 5 mg Furosemide (Lasix) 20 mg PO DAILY [facility] Last Admin: 04/12/18 09:14 Dose: 20 mg Sodium Chloride (Sodium Chloride 0.9%) 1,000 mls @ 100 mls/hr IV .Q10H [facility] Last Admin: 04/12/18 16:30 Dose: 100 mls/hr Meropenem 1 gm/ Sodium (Chloride) 100 mls @ 100 mls/hr IVPB Q8 [facility]; Protocol Last Admin: 04/12/18 13:45 Dose: 100 mls/hr Levothyroxine Sodium (Synthroid) 25 mcg PO DAILY@0630 [facility] Last Admin: 04/12/18 08:07 Dose: 25 mcg Losartan Potassium (Cozaar) 100 mg PO DAILY [facility] Last Admin: 04/12/18 09:16 Dose: 100 mg Metformin HCl (Glucophage) 500 mg PO BID [facility] Last Admin: 04/12/18 16:30 Dose: 500 mg Montelukast Sodium (Singulair) 10 mg PO DAILY [facility] Last Admin: 04/12/18 09:19 Dose: 10 mg Pantoprazole Sodium (Protonix Ec Tab) 40 mg PO DAILY [facility] Last Admin: 04/12/18 09:18 Dose: 40 mg Paroxetine HCl (Paxil) 40 mg PO DAILY [facility] Last Admin: 04/12/18 09:18 Dose: 40 mg Risperidone (Risperdal Tab) 0.[address] [facility] Last Admin: 04/11/18 22:12 Dose: 0.25 mg Zolpidem Tartrate (Ambien) [address] [facility] Last Admin: 04/11/18 23:00 Dose: Not Given - Labs Labs: 04/12/18 08:03 04/12/18 08:03 - Constitutional Appears: No Acute Distress - Head Exam Head Exam: ATRAUMATIC - Eye Exam Eye Exam: absent: Scleral icterus - ENT Exam ENT Exam: Mucous Membranes Moist - Neck Exam Neck Exam: absent: Meningismus - Respiratory Exam Respiratory Exam: absent: Rales, Rhonchi, Wheezes, Respiratory Distress - Cardiovascular Exam Cardiovascular Exam: REGULAR RHYTHM, +S1, +S2 - GI/Abdominal Exam GI & Abdominal Exam: Soft. absent: Tenderness - Rectal Exam Rectal Exam: Deferred - Neurological Exam Neurological Exam: Alert - Psychiatric Exam Psychiatric exam: Normal Affect - Skin Skin Exam: Dry, Intact Assessment and Plan - Assessment and Plan (Free Text) Assessment: 82 yo female with history of Dementia, DM2, COPD, HLD and HTN brought by daughter because right flank pain starting today accompanied with dysuria. Patient was diagnosed by her PCP recently and was put on Bactrim but her dysuria did not disappear and now started to have right flank pain. Denied fever or chills. 1. Pyelonephritis urine culture grew ESBL E Coli resistant to Ceftriaxone Meropenem 1gm IV q 8hrs ID consult with Dr Olivera 2. Dementia on Lexapro and Risperidone 3. DM2 BS controlled HgA1C pending DC Metformin accuchek ACHS with low Lispro coverage 4. COPD asymptomatic Montelukast 10mg PO daily Duoneb q 4hrs prn 5. HLD Lipitor 40mg PO HS 6. HTN BP stable Losartan 100mg PO daily 7. DVT prophylaxis Lovenox 40mg SC daily
[2018-04-12] MEDS: Meropenem 1 GM in Sodium Chloride 0.9% 100 ML IVPB SCH (21:16)
[2018-04-13] MEDS: Sodium Chloride 0.9% 1,000 ML IV SCH ×2 (06:04→15:00)
[2018-04-13] MEDS: Levothyroxine 25 MCG TAB PO SCH (06:05)
[2018-04-13] MEDS: Meropenem 1 GM in Sodium Chloride 0.9% 100 ML IVPB SCH ×3 (06:05→21:12)
[2018-04-13 06:56] LABS: BASO # 0.1 K/uL (0.0-0.2); BASO % 0.9 % (0.0-2.0); EOS # 0.4 K/uL (0.0-0.7); EOS % 2.9 % (0.0-4.0); HEMOGLOBIN 11.6 g/dL (12.0-16.0); LYMPH # 2.3 K/uL (1.0-4.3); LYMPH % 16.4 % (20.0-40.0); MEAN CELL VOLUME 83.2 fl (81.0-99.0); MEAN CORPUSCULAR HEMOGLOBIN 25.9 pg (27.0-31.0); MEAN CORPUSCULAR HGB CONC 31.1 g/dL (33.0-37.0); MONO # 0.6 K/uL (0.0-0.8); MONO % 4.6 % (0.0-10.0); NEUT # 10.3 K/uL (1.8-7.0); NEUT % 75.2 % (50.0-75.0); RBC 4.48 Mil/uL (3.80-5.20); RED CELL DISTRIBUTION WIDTH 17.4 % (11.5-14.5); WHITE BLOOD COUNT 13.8 K/uL (4.8-10.8)
[2018-04-13 07:04] LABS: ALB/GLOB RATIO 0.9 (1.0-2.1); ALT/SGPT 10 U/L (9-52); AST/SGOT 14 U/L (14-36); BLOOD UREA NITROGEN 21 mg/dl (7-17); CALCIUM 8.5 mg/dL (8.4-10.2); GFR NON-AFRICAN AMERICAN 53
[2018-04-13] MEDS: Enoxaparin 40 mg Syringe SC SCH (09:51)
[2018-04-13] MEDS ORDERED: Magnesium Sulfate 2 gm/50 ml 2 GM/50 ML BAG IVPB ONE (11:22)
--- NOTE | 2018-04-13 11:27 | CP.PCM.PN ---
<Giacomo Guerrero - Last Filed: 04/13/18 12:17> Subjective - Date & Time of Evaluation Date of Evaluation: 04/13/18 Time of Evaluation: 11:23 - Subjective Subjective: 82 YO F seen at bedside resting comfortaby. Continues to complain of back pain which she has had chronically, she states she has been told its secondary to nerve impingement, but declines medication for pain. - Denies any fever, chills, nausea or vomiting. Objective - Vital Signs/Intake and Output Vital Signs (last 24 hours): Temp Pulse Resp BP Pulse Ox 97.8 F 80 20 180/92 H 94 L 04/13/18 09:05 04/13/18 09:50 04/13/18 09:05 04/13/18 09:50 04/13/18 09:05 - Medications Medications: Current Medications Acetaminophen (Tylenol 325mg Tab) 650 mg PO Q6 PRN PRN Reason: Pain, Mild (1-3) Last Admin: 04/12/18 09:33 Dose: 650 mg Alprazolam (Xanax) 0.5 mg PO HS [facility] Last Admin: 04/12/18 21:20 Dose: 0.5 mg Docusate Sodium (Colace) 100 mg PO BID [facility] Last Admin: 04/13/18 09:49 Dose: 100 mg Enoxaparin Sodium (Lovenox) 40 mg SC DAILY [facility]; Protocol Last Admin: 04/13/18 09:51 Dose: 40 mg Escitalopram Oxalate (Lexapro) 5 mg PO DAILY [facility] Last Admin: 04/13/18 09:51 Dose: 5 mg Furosemide (Lasix) 20 mg PO DAILY [facility] Last Admin: 04/13/18 09:50 Dose: 20 mg Sodium Chloride (Sodium Chloride 0.9%) 1,000 mls @ 100 mls/hr IV .Q10H [facility] Last Admin: 04/13/18 06:04 Dose: 100 mls/hr Meropenem 1 gm/ Sodium (Chloride) 100 mls @ 100 mls/hr IVPB Q8@0600,1400,2200 [facility]; Protocol Last Admin: 04/13/18 06:05 Dose: 100 mls/hr Magnesium Sulfate 2 gm/ Sodium (Chloride) 104 mls @ 104 mls/hr IVPB ONCE ONE Stop: 04/13/18 12:21 Levothyroxine Sodium (Synthroid) 25 mcg PO DAILY@0630 [facility] Last Admin: 04/13/18 06:05 Dose: 25 mcg Losartan Potassium (Cozaar) 100 mg PO DAILY [facility] Last Admin: 04/13/18 09:50 Dose: 100 mg Montelukast Sodium (Singulair) 10 mg PO DAILY [facility] Last Admin: 04/13/18 09:52 Dose: 10 mg Pantoprazole Sodium (Protonix Ec Tab) 40 mg PO DAILY [facility] Last Admin: 04/12/18 09:18 Dose: 40 mg Paroxetine HCl (Paxil) 40 mg PO DAILY [facility] Last Admin: 04/13/18 09:52 Dose: 40 mg Risperidone (Risperdal Tab) 0.25 mg PO [facility] Last Admin: 04/12/18 21:16 Dose: 0.25 mg Zolpidem Tartrate (Ambien) 5 mg PO [facility] Last Admin: 04/12/18 22:45 Dose: Not Given - Labs Labs: 04/13/18 05:30 04/13/18 05:30 - Constitutional Appears: No Acute Distress - Head Exam Head Exam: NORMAL INSPECTION - Eye Exam Eye Exam: Normal appearance - Respiratory Exam Respiratory Exam: Clear to Ausculation Bilateral, Rhonchi. absent: Wheezes - Cardiovascular Exam Cardiovascular Exam: REGULAR RHYTHM, +S1, +S2 - GI/Abdominal Exam GI & Abdominal Exam: Soft, Normal Bowel Sounds. absent: Tenderness - Extremities Exam Extremities Exam: Normal Inspection. absent: Calf Tenderness - Neurological Exam Neurological Exam: Alert, Awake, CN II-XII Intact - Skin Skin Exam: Normal Color, Warm Assessment and Plan - Assessment and Plan (Free Text) Assessment: 82 yo female with history of Dementia, DM2, COPD, HLD and HTN brought by daughter because right flank pain starting today accompanied with dysuria. Patient was diagnosed by her PCP recently and was put on Bactrim but her dysuria did not disappear and now started to have right flank pain. Denied fever or chills. 1. Pyelonephritis - WBC: 13.8 urine culture grew ESBL E Coli resistant . Sensitive to Meropenum C/W :Meropenem 1gm IV q 8hrs Will discharge patient to TCU tommorrow for futhur antibiotic and physical therapy for her deconditioning ID consult with Dr Olivera 2. Dementia on Lexapro and Risperidone 3. DM2 BS controlled HgA1C : 6.3 accuchek ACHS with low Lispro coverage 4. COPD asymptomatic Montelukast 10mg PO daily Duoneb q 4hrs prn 5. HLD Lipitor 40mg PO HS 6. HTN BP stable Losartan 100mg PO daily 7. Hypomagnesium: - 1.5 mg -2gm magnesium IVPB 8. DVT prophylaxis Lovenox 40mg SC daily <Ari Mendez D - Last Filed: 04/13/18 14:41> Objective - Vital Signs/Intake and Output Vital Signs (last 24 hours): Temp Pulse Resp BP Pulse Ox 97.8 F 80 20 180/92 H 94 L 04/13/18 09:05 04/13/18 09:50 04/13/18 09:05 04/13/18 09:50 04/13/18 09:05 - Medications Medications: Current Medications Acetaminophen (Tylenol 325mg Tab) 650 mg PO Q6 PRN PRN Reason: Pain, Mild (1-3) Last Admin: 04/12/18 09:33 Dose: 650 mg Alprazolam (Xanax) 0.5 mg PO HS [facility] Last Admin: 04/12/18 21:20 Dose: 0.5 mg Dextrose (Dextrose 50% Inj) 0 ml IV STAT PRN; Protocol PRN Reason: Hypoglycemia Protocol Dextrose (Dextrose 50% Inj) 50 ml IVP ONCE PRN PRN Reason: Hypoglycemia Dextrose (Glutose 15) 0 gm PO ONCE PRN; Protocol PRN Reason: Hypoglycemia Protocol Docusate Sodium (Colace) 100 mg PO BID [facility] Last Admin: 04/13/18 09:49 Dose: 100 mg Enoxaparin Sodium (Lovenox) 40 mg SC DAILY [facility]; Protocol Last Admin: 04/13/18 09:51 Dose: 40 mg Escitalopram Oxalate (Lexapro) 5 mg PO DAILY [facility] Last Admin: 04/13/18 09:51 Dose: 5 mg Furosemide (Lasix) 20 mg PO DAILY [facility] Last Admin: 04/13/18 09:50 Dose: 20 mg Glucagon (Glucagen Diagnostic Kit) 0 mg IM STAT PRN; Protocol PRN Reason: Hypoglycemia Protocol Sodium Chloride (Sodium Chloride 0.9%) 1,000 mls @ 100 mls/hr IV .Q10H [facility] Last Admin: 04/13/18 06:04 Dose: 100 mls/hr Meropenem 1 gm/ Sodium (Chloride) 100 mls @ 100 mls/hr IVPB Q8@0600,1400,2200 [facility]; Protocol Last Admin: 04/13/18 06:05 Dose: 100 mls/hr Insulin Human Regular (Humulin R) 0 units SC ACHS [facility]; Protocol Levothyroxine Sodium (Synthroid) 25 mcg PO DAILY@0630 [facility] Last Admin: 04/13/18 06:05 Dose: 25 mcg Losartan Potassium (Cozaar) 100 mg PO DAILY [facility] Last Admin: 04/13/18 09:50 Dose: 100 mg Montelukast Sodium (Singulair) 10 mg PO DAILY [facility] Last Admin: 04/13/18 09:52 Dose: 10 mg Pantoprazole Sodium (Protonix Ec Tab) 40 mg PO DAILY [facility] Last Admin: 04/13/18 11:38 Dose: 40 mg Paroxetine HCl (Paxil) 40 mg PO DAILY [facility] Last Admin: 04/13/18 09:52 Dose: 40 mg Risperidone (Risperdal Tab) 0.25 mg PO [facility] Last Admin: 04/12/18 21:16 Dose: 0.25 mg Zolpidem Tartrate (Ambien) 5 mg PO [facility] Last Admin: 04/12/18 22:45 Dose: Not Given - Labs Labs: 04/13/18 05:30 04/13/18 05:30 Attending/Attestation - Attestation I have personally seen and examined this patient.: Yes I have fully participated in the care of the patient.: Yes I have reviewed all pertinent clinical information, including history, physical exam and plan: Yes Notes (Text): 04/13/18 14:39 Patient seen and examined with resident. Case discussed and agreed with assessment and plan. Patient infected with ESBL E coli will require longer treatment with IV antibiotic. For possible transfer to TCU.
[2018-04-13] MEDS: Pantoprazole 40 mg EC Tab PO SCH (11:38)
[2018-04-13] MEDS ORDERED: Dextrose 50% SYRINGE Inj (50 ml) IVP PRN (14:29)
[2018-04-13] MEDS ORDERED: Glucagon Recombinant 1 mg Inj IM PRN (14:29)
[2018-04-13] MEDS ORDERED: Dextrose 50% SYRINGE Inj (50 ml) IV PRN (14:29)
[2018-04-13] MEDS: Insulin Regular 100 units/ml SC SCH ×2 (17:17→21:08)
[2018-04-14] MEDS: Sodium Chloride 0.9% 1,000 ML IV SCH ×2 (03:02→05:42)
[2018-04-14] MEDS: Meropenem 1 GM in Sodium Chloride 0.9% 100 ML IVPB SCH ×2 (05:41→13:26)
[2018-04-14] MEDS: Levothyroxine 25 MCG TAB PO SCH (05:42)
[2018-04-14 06:55] LABS: BASO # 0.1 K/uL (0.0-0.2); BASO % 0.4 % (0.0-2.0); EOS # 0.4 K/uL (0.0-0.7); EOS % 3.7 % (0.0-4.0); HEMOGLOBIN 11.1 g/dL (12.0-16.0); LYMPH # 1.8 K/uL (1.0-4.3); LYMPH % 14.7 % (20.0-40.0); MEAN CELL VOLUME 82.6 fl (81.0-99.0); MEAN CORPUSCULAR HEMOGLOBIN 25.7 pg (27.0-31.0); MEAN CORPUSCULAR HGB CONC 31.1 g/dL (33.0-37.0); MEAN PLATELET VOLUME 7.1 fl (7.2-11.7); MONO # 0.7 K/uL (0.0-0.8); MONO % 6.1 % (0.0-10.0); NEUT % 75.1 % (50.0-75.0); NRBC % 0.1 % (0.0-0.0); RBC 4.33 Mil/uL (3.80-5.20); RED CELL DISTRIBUTION WIDTH 17.7 % (11.5-14.5)
[2018-04-14 07:44] VITALS: RESP 19
[2018-04-14 07:45] VITALS: BP 163/82; PULSE 81; TEMP 98; O2SAT 96
[2018-04-14] MEDS: Enoxaparin 40 mg Syringe SC SCH (08:54)
[2018-04-14] MEDS: Pantoprazole 40 mg EC Tab PO SCH (08:56)
[2018-04-14] MEDS: Insulin Regular 100 units/ml SC SCH ×2 (09:00→11:30)
--- NOTE | 2018-04-14 11:16 | CP.PCM.PN ---
Subjective - Date & Time of Evaluation Date of Evaluation: 04/14/18 Time of Evaluation: 11:16 - Subjective Subjective: ID note- Patient seen and examined today in med-surg floor. His son and home health billing specialist are at her bedside. Patient states she feels better overall. she does c/o constipation , however. denies any dysurea or flank pain. as per nurse pt. is on colace. Objective - Vital Signs/Intake and Output Vital Signs (last 24 hours): Temp Pulse Resp BP Pulse Ox 98.0 F 81 19 163/82 H 96 04/14/18 07:43 04/14/18 09:00 04/14/18 07:43 04/14/18 09:00 04/14/18 07:43 Intake and Output: 04/14/18 04/14/18 06:59 18:59 Intake Total 1300 Output Total 1200 Balance 100 - Medications Medications: Current Medications Acetaminophen (Tylenol 325mg Tab) 650 mg PO Q6 PRN PRN Reason: Pain, Mild (1-3) Last Admin: 04/12/18 09:33 Dose: 650 mg Alprazolam (Xanax) 0.5 mg PO HS [facility] Last Admin: 04/13/18 21:12 Dose: 0.5 mg Dextrose (Dextrose 50% Inj) 0 ml IV STAT PRN; Protocol PRN Reason: Hypoglycemia Protocol Dextrose (Dextrose 50% Inj) 50 ml IVP ONCE PRN PRN Reason: Hypoglycemia Dextrose (Glutose 15) 0 gm PO ONCE PRN; Protocol PRN Reason: Hypoglycemia Protocol Docusate Sodium (Colace) 100 mg PO BID [facility] Last Admin: 04/14/18 08:54 Dose: 100 mg Enoxaparin Sodium (Lovenox) 40 mg SC DAILY [facility]; Protocol Last Admin: 04/14/18 08:54 Dose: 40 mg Escitalopram Oxalate (Lexapro) 5 mg PO DAILY [facility] Last Admin: 04/14/18 08:59 Dose: 5 mg Furosemide (Lasix) 20 mg PO DAILY [facility] Last Admin: 04/14/18 08:59 Dose: 20 mg Glucagon (Glucagen Diagnostic Kit) 0 mg IM STAT PRN; Protocol PRN Reason: Hypoglycemia Protocol Sodium Chloride (Sodium Chloride 0.9%) 1,000 mls @ 100 mls/hr IV .Q10H [facility] Last Admin: 04/14/18 05:42 Dose: 100 mls/hr Meropenem 1 gm/ Sodium (Chloride) 100 mls @ 100 mls/hr IVPB Q8@0600,1400,2200 [facility]; Protocol Last Admin: 04/14/18 05:41 Dose: 100 mls/hr Insulin Human Regular (Humulin R) 0 units SC ACHS [facility]; Protocol Last Admin: 04/14/18 09:00 Dose: Not Given Levothyroxine Sodium (Synthroid) 25 mcg PO DAILY@0630 [facility] Last Admin: 04/14/18 05:42 Dose: 25 mcg Losartan Potassium (Cozaar) 100 mg PO DAILY [facility] Last Admin: 04/14/18 09:00 Dose: 100 mg Montelukast Sodium (Singulair) 10 mg PO DAILY [facility] Last Admin: 04/14/18 08:59 Dose: 10 mg Pantoprazole Sodium (Protonix Ec Tab) 40 mg PO DAILY [facility] Last Admin: 04/14/18 08:56 Dose: 40 mg Paroxetine HCl (Paxil) 40 mg PO DAILY [facility] Last Admin: 04/14/18 08:55 Dose: 40 mg Risperidone (Risperdal Tab) 0.25 mg PO [facility] Last Admin: 04/13/18 21:13 Dose: 0.25 mg Zolpidem Tartrate (Ambien) 5 mg PO [facility] Last Admin: 04/13/18 22:43 Dose: Not Given - Labs Labs: - Additional Findings Additional findings: - Constitutional Appears: No Acute Distress - Head Exam Head Exam: ATRAUMATIC - Eye Exam Eye Exam: EOMI, PERRL - ENT Exam ENT Exam: Normal Oropharynx - Neck Exam Neck exam: Positive for: Full Rom - Respiratory Exam Respiratory Exam: Clear to Auscultation Bilateral, NORMAL BREATHING PATTERN - Cardiovascular Exam Cardiovascular Exam: RRR, +S1, +S2 - GI/Abdominal Exam GI & Abdominal Exam: Normal Bowel Sounds, Soft Additional comments: No Distention No tenderness - Extremities Exam Extremities exam: Positive for: normal inspection - Neurological Exam Neurological exam: Alert, Oriented x 3 Laboratory Results - last 72 hr 04/11/18 04/11/18 04/12/18 15:36 21:17 05:16 WBC RBC Hgb Hct MCV MCH MCHC RDW Plt Count MPV Neut % (Auto) Lymph % (Auto) Hughes % (Auto) Eos % (Auto) Baso % (Auto) Neut # (Auto) Lymph # (Auto) Hughes # (Auto) Eos # (Auto) Baso # (Auto) Sodium Potassium Chloride Carbon Dioxide Anion Gap BUN Creatinine Est GFR ( Amer) Est GFR (Non-Af Amer) POC Glucose (mg/dL) 90 107 95 Random Glucose Hemoglobin A1c Calcium Magnesium Total Bilirubin AST ALT Alkaline Phosphatase Total Protein Albumin Globulin Albumin/Globulin Ratio 04/12/18 04/12/18 04/12/18 05:30 08:03 08:03 WBC 11.8 H RBC 4.41 Hgb 11.2 L Hct 35.9 MCV 81.4 MCH 25.4 L MCHC 31.2 L RDW 17.9 H Plt Count 337 MPV 7.5 Neut % (Auto) 75.3 H Lymph % (Auto) 17.2 L Hughes % (Auto) 4.5 Eos % (Auto) 2.5 Baso % (Auto) 0.5 Neut # (Auto) 8.9 H Lymph # (Auto) 2.0 Hughes # (Auto) 0.5 Eos # (Auto) 0.3 Baso # (Auto) 0.1 Sodium 137 Potassium 4.3 Chloride 101 Carbon Dioxide 26 Anion Gap 14 BUN 21 H Creatinine 1.3 H Est GFR ( Amer) 47 Est GFR (Non-Af Amer) 39 POC Glucose (mg/dL) Random Glucose 109 H Hemoglobin A1c 6.3 Calcium 8.4 Magnesium Total Bilirubin 0.2 AST 13 L D ALT 24 Alkaline Phosphatase 77 Total Protein 6.0 L Albumin 2.9 L Globulin 3.1 Albumin/Globulin Ratio 0.9 L 04/12/18 04/12/18 04/12/18 10:57 15:38 21:13 WBC RBC Hgb Hct MCV MCH MCHC RDW Plt Count MPV Neut % (Auto) Lymph % (Auto) Hughes % (Auto) Eos % (Auto) Baso % (Auto) Neut # (Auto) Lymph # (Auto) Hughes # (Auto) Eos # (Auto) Baso # (Auto) Sodium Potassium Chloride Carbon Dioxide Anion Gap BUN Creatinine Est GFR ( Amer) Est GFR (Non-Af Amer) POC Glucose (mg/dL) 158 H 109 97 Random Glucose Hemoglobin A1c Calcium Magnesium Total Bilirubin AST ALT Alkaline Phosphatase Total Protein Albumin Globulin Albumin/Globulin Ratio 04/13/18 04/13/18 04/13/18 05:17 05:30 05:30 WBC 13.8 H RBC 4.48 Hgb 11.6 L Hct 37.3 MCV 83.2 MCH 25.9 L MCHC 31.1 L RDW 17.4 H Plt Count 279 MPV 8.0 Neut % (Auto) 75.2 H Lymph % (Auto) 16.4 L Hughes % (Auto) 4.6 Eos % (Auto) 2.9 Baso % (Auto) 0.9 Neut # (Auto) 10.3 H Lymph # (Auto) 2.3 Hughes # (Auto) 0.6 Eos # (Auto) 0.4 Baso # (Auto) 0.1 Sodium 133 Potassium 4.4 Chloride 102 Carbon Dioxide 25 Anion Gap 10 BUN 21 H Creatinine 1.0 Est GFR ( Amer) > 60 Est GFR (Non-Af Amer) 53 POC Glucose (mg/dL) 86 Random Glucose 90 Hemoglobin A1c Calcium 8.5 Magnesium 1.5 L Total Bilirubin 0.2 AST 14 ALT 10 Alkaline Phosphatase 74 Total Protein 6.2 L Albumin 3.0 L Globulin 3.2 Albumin/Globulin Ratio 0.9 L 04/13/18 04/13/18 04/13/18 10:53 16:22 21:02 WBC RBC Hgb Hct MCV MCH MCHC RDW Plt Count MPV Neut % (Auto) Lymph % (Auto) Hughes % (Auto) Eos % (Auto) Baso % (Auto) Neut # (Auto) Lymph # (Auto) Hughes # (Auto) Eos # (Auto) Baso # (Auto) Sodium Potassium Chloride Carbon Dioxide Anion Gap BUN Creatinine Est GFR ( Amer) Est GFR (Non-Af Amer) POC Glucose (mg/dL) 126 H 117 H 114 H Random Glucose Hemoglobin A1c Calcium Magnesium Total Bilirubin AST ALT Alkaline Phosphatase Total Protein Albumin Globulin Albumin/Globulin Ratio 04/14/18 04/14/18 04/14/18 05:37 06:30 11:08 WBC 12.0 H RBC 4.33 Hgb 11.1 L Hct 35.8 MCV 82.6 MCH 25.7 L MCHC 31.1 L RDW 17.7 H Plt Count 315 MPV 7.1 L Neut % (Auto) 75.1 H Lymph % (Auto) 14.7 L Hughes % (Auto) 6.1 Eos % (Auto) 3.7 Baso % (Auto) 0.4 Neut # (Auto) 9.0 H Lymph # (Auto) 1.8 Hughes # (Auto) 0.7 Eos # (Auto) 0.4 Baso # (Auto) 0.1 Sodium Potassium Chloride Carbon Dioxide Anion Gap BUN Creatinine Est GFR ( Amer) Est GFR (Non-Af Amer) POC Glucose (mg/dL) 88 114 H Random Glucose Hemoglobin A1c Calcium Magnesium Total Bilirubin AST ALT Alkaline Phosphatase Total Protein Albumin Globulin Albumin/Globulin Ratio Microbiology 04/10/18 18:15 Blood-Venous Blood Culture - Preliminary NO GROWTH AFTER 3 DAYS 04/10/18 16:00 Urine Random Urine Culture - Final Escherichia Coli Assessment and Plan (1) Pyelonephritis Status: Acute (2) Infection due to ESBL-producing Escherichia coli Status: Acute (3) UTI (urinary tract infection) Status: Acute - Assessment and Plan (Free Text) Assessment: A/P- 82 year old female admitted with dysurea and right flank pain found to have E.Coli ESBL UTI. afebrile leukocytosis trending down UA-positive Urine cx- ESBL e.coli Blood cx- neg PLan- advise to continue IV meropebnem to treat the ESBL e.coli UTI ? pyelo. day #3 will need at least 10 days of IV meropenem. All above d/w patient and she verbalizes full understanding of all above.
--- NOTE | 2018-04-14 13:57 | CP.PCM.DIS ---
Provider - Provider Date of Admission: 04/10/18 19:03 Attending physician: Ari Mendez MD Consults: 04/10/18 22:48 Case Management Referral Routine Comment: Physician Instructions: Reason For Exam: discharge planning Reason for Referral: Discharge Planning 04/12/18 12:01 Infectious Disease Consult Routine Comment: Consulting Provider: Snehal Olivera Consulting Physician: Snehal Olivera Reason for Consult: ESBL E coli on urine Time Spent in preparation of Discharge (in minutes): 35 Diagnosis - Discharge Diagnosis (1) Infection due to ESBL-producing Escherichia coli Status: Acute Priority: Medium (2) Pyelonephritis Status: Acute Priority: Low (3) UTI (urinary tract infection) Status: Acute Priority: Low Hospital Course - Lab Results Lab Results: Micro Results 04/10/18 18:15 Blood-Venous Blood Culture - Preliminary NO GROWTH AFTER 3 DAYS 04/10/18 16:00 Urine Random Urine Culture - Final Escherichia Coli Most Recent Lab Values WBC 12.0 K/uL (4.8-10.8) H 04/14/18 06:30 RBC 4.33 Mil/uL (3.80-5.20) 04/14/18 06:30 Hgb 11.1 g/dL (12.0-16.0) L 04/14/18 06:30 Hct 35.8 % (34.0-47.0) 04/14/18 06:30 MCV 82.6 fl (81.0-99.0) 04/14/18 06:30 MCH 25.7 pg (27.0-31.0) L 04/14/18 06:30 MCHC 31.1 g/dL (33.0-37.0) L 04/14/18 06:30 RDW 17.7 % (11.5-14.5) H 04/14/18 06:30 Plt Count 315 K/uL (130-400) 04/14/18 06:30 MPV 7.1 fl (7.2-11.7) L 04/14/18 06:30 Neut % (Auto) 75.1 % (50.0-75.0) H 04/14/18 06:30 Lymph % (Auto) 14.7 % (20.0-40.0) L 04/14/18 06:30 [place] % (Auto) 6.1 % (0.0-10.0) 04/14/18 06:30 Eos % (Auto) 3.7 % (0.0-4.0) 04/14/18 06:30 Baso % (Auto) 0.4 % (0.0-2.0) 04/14/18 06:30 Neut # (Auto) 9.0 K/uL (1.8-7.0) H 04/14/18 06:30 Lymph # (Auto) 1.8 K/uL (1.0-4.3) 04/14/18 06:30 [place] # (Auto) 0.7 K/uL (0.0-0.8) 04/14/18 06:30 Eos # (Auto) 0.4 K/uL (0.0-0.7) 04/14/18 06:30 Baso # (Auto) 0.1 K/uL (0.0-0.2) 04/14/18 06:30 pO2 32 mm/Hg (30-55) 04/10/18 17:52 ABG Carboxyhemoglobin 1.7 % (0.5-1.5) H 04/10/18 17:52 POC ABG HHb (Measured) 31.1 % (0.0-5.0) H 04/10/18 17:52 ABG Methemoglobin 3.4 % (0.0-3.0) H 04/10/18 17:52 VBG pH 7.34 (7.32-7.43) 04/10/18 17:52 VBG pCO2 48 mmHg (40-60) 04/10/18 17:52 VBG HCO3 23.8 mmol/L 04/10/18 17:52 VBG O2 Sat (Calc) 67.2 % (40-65) H 04/10/18 17:52 VBG Base Excess -0.4 mmol/L (0.0-2.0) L 04/10/18 17:52 VBG Hgb O2 Saturation 63.7 % (95.0-98.0) L 04/10/18 17:52 Hemoglobin 12.6 g/dL (11.7-17.4) 04/10/18 17:52 Sodium 133 mmol/l (132-148) 04/13/18 05:30 Potassium 4.4 MMOL/L (3.6-5.0) 04/13/18 05:30 Chloride 102 mmol/L (98-107) 04/13/18 05:30 Carbon Dioxide 25 mmol/L (22-30) 04/13/18 05:30 Anion Gap 10 (10-20) 04/13/18 05:30 BUN 21 mg/dl (7-17) H 04/13/18 05:30 Creatinine 1.0 mg/dl (0.7-1.2) 04/13/18 05:30 Est GFR ( Amer) > 60 04/13/18 05:30 Est GFR (Non-Af Amer) 53 04/13/18 05:30 POC Glucose (mg/dL) 114 mg/dL (65-110) H 04/14/18 11:08 Random Glucose 90 mg/dL (65-105) 04/13/18 05:30 Hemoglobin A1c 6.3 % (4.2-6.5) 04/12/18 05:30 Lactic Acid 0.8 mmol/L (0.7-2.1) 04/10/18 18:14 Calcium 8.5 mg/dL (8.4-10.2) 04/13/18 05:30 Magnesium 1.5 MG/DL (1.6-2.3) L 04/13/18 05:30 Total Bilirubin 0.2 mg/dl (0.2-1.3) 04/13/18 05:30 AST 14 U/L (14-36) 04/13/18 05:30 ALT 10 U/L (9-52) 04/13/18 05:30 Alkaline Phosphatase 74 U/L (38-126) 04/13/18 05:30 Total Protein 6.2 G/DL (6.3-8.2) L 04/13/18 05:30 Albumin 3.0 g/dL (3.5-5.0) L 04/13/18 05:30 Globulin 3.2 gm/dL (2.2-3.9) 04/13/18 05:30 Albumin/Globulin Ratio 0.9 (1.0-2.1) L 04/13/18 05:30 TSH 3rd Generation 0.65 mIU/ML (0.46-4.68) 04/11/18 05:50 Urine Color Yellow (YELLOW) 04/10/18 16:00 Urine Clarity Slighty-cloudy (Clear) 04/10/18 16:00 Urine pH 7.0 (5.0-8.0) 04/10/18 16:00 Ur Specific [place] 1.018 (1.003-1.030) 04/10/18 16:00 Urine Protein 100 mg/dL (NEGATIVE) 04/10/18 16:00 Urine Glucose (UA) Neg mg/dL (NEGATIVE) 04/10/18 16:00 Urine Ketones Negative mg/dL (NEGATIVE) 04/10/18 16:00 Urine Blood Small (NEGATIVE) 04/10/18 16:00 Urine Nitrate Positive (NEGATIVE) H 04/10/18 16:00 Urine Bilirubin Negative (NEGATIVE) 04/10/18 16:00 Urine Urobilinogen 0.2-1.0 mg/dL (0.2-1.0) 04/10/18 16:00 Ur Leukocyte Esterase [place]/uL (Negative) 04/10/18 16:00 Urine RBC (Auto) 6 /hpf (0-3) H 04/10/18 16:00 Urine Microscopic WBC 52 /hpf (0-5) H 04/10/18 16:00 Ur Squamous Epith Cells < 1 /hpf (0-5) 04/10/18 16:00 Urine Bacteria Occ (<OCC) H 04/10/18 16:00 - Hospital Course Hospital Course: 82 y/o female with hx of of Dementia, COPD, HLD and HTN who presented w/ right flank pain and dysuria. Patient was evaluated by PMD outpatient and started on Bactrim but her dysuria did not disappear. She was admitted to [facility] for pyelonephritis and found to have ESBL. Patient started on Meropenem 1mg IV Q8H. Patient is stable for discharge to rehab for continued IV antibiotics (for 7 days) and physical therapy for deconditioning. Home Meds: Lexapro 5mg PO QD Lasix 20mg PO QD Synthroid 25mcg PO QD Cozaar 100mg PO QD Paroxatine 40mg PO QD Zocor 40mg PO QD Ambien 5mg PO HS Risperadone 0.25mg PO HS Disconitnued Metformin as HgbA1c 04/12/2018 is 6.3% Discharge Exam - Head Exam Head Exam: absent: NORMAL INSPECTION - ENT Exam ENT Exam: Mucous Membranes Moist - Respiratory Exam Respiratory Exam: Clear to PA & Lateral, NORMAL BREATHING PATTERN - Cardiovascular Exam Cardiovascular Exam: RRR, +S1, +S2 - GI/Abdominal Exam GI & Abdominal Exam: Normal Bowel Sounds, Soft. absent: Tenderness - Back Exam Back exam: CVA tenderness (L), CVA tenderness (R) - Neurological Exam Neurological exam: Alert - Skin Skin Exam: Dry, Normal Color, Warm Discharge Plan - Follow Up Plan Condition: STABLE Disposition: REHAB FACILITY/REHAB UNIT Patient education suggested?: Yes Instructions: Urinary Tract Infection in Women (DC), Urinary Tract Infection in Men (DC), Dysuria (GEN)
== END 2018-04-14 15:07 | DRG 690 ==
LOC: H.ER 13:59 → H.MEDSURG1 19:03
DX: N10 Acute pyelonephritis (principal); N17.9 Acute kidney failure, unspecified; E11.22 Type 2 diabetes mellitus with diabetic chronic kidney disease; B96.20 Unspecified Escherichia coli [E. coli] as the cause of diseases classified elsewhere; F03.90 Unspecified dementia, unspecified severity, without behavioral disturbance, psychotic disturbance, mood disturbance, and anxiety; J44.9 Chronic obstructive pulmonary disease, unspecified; E78.5 Hyperlipidemia, unspecified; E83.42 Hypomagnesemia; K59.00 Constipation, unspecified; E03.9 Hypothyroidism, unspecified; F41.9 Anxiety disorder, unspecified; M17.0 Bilateral primary osteoarthritis of knee; I25.10 Atherosclerotic heart disease of native coronary artery without angina pectoris; F32.9 Major depressive disorder, single episode, unspecified; E78.00 Pure hypercholesterolemia, unspecified; Z79.84 Long term (current) use of oral hypoglycemic drugs; Z79.890 Hormone replacement therapy; Z16.19 Resistance to other specified beta lactam antibiotics; I12.9 Hypertensive chronic kidney disease with stage 1 through stage 4 chronic kidney disease, or unspecified chronic kidney disease; N18.9 Chronic kidney disease, unspecified

== ENCOUNTER 2018-04-14 13:48 | Inpatient (IN) | payer OTHER, MEDICAID ==
[2018-04-14 15:54] VITALS: BMI 31.1
[2018-04-14] MEDS ORDERED: Dextrose 50% SYRINGE Inj (50 ml) IVP PRN (16:13)
[2018-04-14] MEDS ORDERED: Glucagon Recombinant 1 mg Inj IM PRN (16:13)
[2018-04-14] MEDS ORDERED: Dextrose 50% SYRINGE Inj (50 ml) IV PRN (16:13)
[2018-04-14] MEDS: Insulin Regular 100 units/ml SC SCH ×2 (16:30→22:26)
[2018-04-14] MEDS: Meropenem 1 GM in Sodium Chloride 0.9% 100 ML IVPB SCH (21:31)
[2018-04-15] MEDS: Levothyroxine 25 MCG TAB PO SCH (05:35)
[2018-04-15] MEDS: Meropenem 1 GM in Sodium Chloride 0.9% 100 ML IVPB SCH ×3 (05:35→22:08)
[2018-04-15 06:46] LABS: BASO # 0.1 K/uL (0.0-0.2); BASO % 0.6 % (0.0-2.0); EOS # 0.5 K/uL (0.0-0.7); EOS % 5.5 % (0.0-4.0); HEMOGLOBIN 11.4 g/dL (12.0-16.0); LYMPH # 1.6 K/uL (1.0-4.3); LYMPH % 16.6 % (20.0-40.0); MEAN CELL VOLUME 81.7 fl (81.0-99.0); MEAN CORPUSCULAR HEMOGLOBIN 25.8 pg (27.0-31.0); MEAN CORPUSCULAR HGB CONC 31.5 g/dL (33.0-37.0); MEAN PLATELET VOLUME 7.7 fl (7.2-11.7); MONO # 0.7 K/uL (0.0-0.8); NEUT # 6.9 K/uL (1.8-7.0); NEUT % 70.3 % (50.0-75.0); NRBC % 0.1 % (0.0-0.0); RBC 4.44 Mil/uL (3.80-5.20); RED CELL DISTRIBUTION WIDTH 17.4 % (11.5-14.5); WHITE BLOOD COUNT 9.9 K/uL (4.8-10.8)
[2018-04-15 06:54] LABS: ALBUMIN 3.2 g/dL (3.5-5.0); CALCIUM 9.2 mg/dL (8.4-10.2)
[2018-04-15] MEDS: Insulin Regular 100 units/ml SC SCH ×4 (07:45→22:01)
--- NOTE | 2018-04-15 07:49 | CP.PCM.HP ---
History of Present Illness - History of Present Illness History of Present Illness: 82 y/o female with hx of of Dementia, COPD, HLD and HTN who presented to [facility] w/ right flank pain and dysuria. Patient was evaluated by PMD outpatient and started on Bactrim but her dysuria did not disappear. She was admitted to [facility] for pyelonephritis and found to have ESBL. Patient started on Meropenem 1mg IV Q8H. Pmhx: Dementia, COPD, HLD, HTN HomeRx: Lexapro 5mg PO QD, Lasix 20mg PO QD, Synthroid 25mcg PO QD, Cozaar 100mg PO QD, Paroxatine 40mg PO QD, Zocor 40mg PO QD, Ambien 5mg PO HS Allergies: NKDA FamHx: non-contributory Socialhx: denies toxic habits Code status: Full code Present on Admission - Present on Admission Any Indicators Present on Admission: No History of DVT/PE: No History of Uncontrolled Diabetes: No Urinary Catheter: No Decubitus Ulcer Present: No Review of Systems - Review of Systems All systems: reviewed and no additional remarkable complaints except Past Patient History - Tetanus Immunizations Tetanus Immunization: Unknown - Past Medical History & Family History Past Medical History?: Yes - Past Social History Smoking Status: Never Smoked - CARDIAC Hx Cardiac Disorders: Yes Hx Cardia Arrhythmia: No Hx Hypercholesterolemia: Yes Hx Hypertension: Yes - PULMONARY Hx Respiratory Disorders: Yes Hx Chronic Obstructive Pulmonary Disease (COPD): Yes Hx Pneumonia: Yes - NEUROLOGICAL Hx Neurological Disorder: Yes Hx Dementia: Yes Hx Seizures: Yes - HEENT Hx HEENT Problems: Yes - RENAL Hx Chronic Kidney Disease: Yes Hx Pyelonephritis: Yes Other/Comment: esbl in urine - ENDOCRINE/METABOLIC Hx Endocrine Disorders: Yes Hx Hypothyroidism: Yes - HEMATOLOGICAL/ONCOLOGICAL Hx Blood Disorders: No Hx AIDS: No Hx Human Immunodeficiency Virus (HIV): No Hx Unexplained Bleeding: No - INTEGUMENTARY Hx Dermatological Problems: No - MUSCULOSKELETAL/RHEUMATOLOGICAL Hx Musculoskeletal Disorders: No Hx Falls: No - GASTROINTESTINAL Hx Gastrointestinal Disorders: No - GENITOURINARY/GYNECOLOGICAL Hx Genitourinary Disorders: No - PSYCHIATRIC Hx Substance Use: No - SURGICAL HISTORY Hx Surgeries: Yes Hx Cholecystectomy: Yes - ANESTHESIA Hx Anesthesia: Yes Hx Anesthesia Reactions: No Hx Malignant Hyperthermia: No Meds Allergies/Adverse Reactions: Allergies Allergy/AdvReac Type Severity Reaction Status Date / Time No Known Allergies Allergy Verified 02/11/19 14:17 Physical Exam - Constitutional Appears: No Acute Distress - ENT Exam ENT Exam: Mucous Membranes Moist - Respiratory Exam Respiratory Exam: Clear to Auscultation Bilateral, NORMAL BREATHING PATTERN - Cardiovascular Exam Cardiovascular Exam: RRR, +S1, +S2 - GI/Abdominal Exam GI & Abdominal Exam: Normal Bowel Sounds, Soft. absent: Tenderness - Extremities Exam Extremities exam: Positive for: normal inspection - Neurological Exam Neurological exam: Alert - Skin Skin Exam: Dry, Warm Results - Vital Signs Recent Vital Signs: Last Vital Signs Temp 97.8 F 04/15/18 07:39 Pulse 78 04/15/18 07:39 Resp 20 04/15/18 07:39 BP 108/63 04/15/18 07:39 Pulse Ox 96 04/15/18 07:39 - Labs Result Diagrams: 04/15/18 06:00 04/15/18 06:00 Labs: Laboratory Results - last 24 hr 04/15/18 04/15/18 04/15/18 05:03 06:00 06:00 WBC 9.9 RBC 4.44 Hgb 11.4 L Hct 36.3 MCV 81.7 MCH 25.8 L MCHC 31.5 L RDW 17.4 H Plt Count 308 MPV 7.7 Neut % (Auto) 70.3 Lymph % (Auto) 16.6 L [place] % (Auto) 7.0 Eos % (Auto) 5.5 H Baso % (Auto) 0.6 Neut # (Auto) 6.9 Lymph # (Auto) 1.6 [place] # (Auto) 0.7 Eos # (Auto) 0.5 Baso # (Auto) 0.1 Sodium 136 Potassium 4.6 Chloride 95 L Carbon Dioxide 32 H Anion Gap 14 BUN 35 H Creatinine 1.2 Est GFR ( Amer) 52 Est GFR (Non-Af Amer) 43 POC Glucose (mg/dL) 116 H Random Glucose 103 Calcium 9.2 Total Bilirubin 0.3 AST 23 ALT 25 Alkaline Phosphatase 82 Total Protein 6.4 Albumin 3.2 L Globulin 3.2 Albumin/Globulin Ratio 1.0 Assessment & Plan - Assessment and Plan (Free Text) Assessment: Assessment: 82 yo female w/ pmhx of Dementia, COPD, HLD and HTN admitted to TCU for continuation of IV antibiotics for ESBL pyelonephritis. Pyelonephritis secondary to ESBL Leukocytosis resolved Meropenem 1mg IV Q8H (day 4) ID consulted; Dr. Olivera following; appreciate recs Hx of HTN Chronic, elevated BP Losartan 100mg PO daily and Lasix 20mg PO QD continue monitoring BP COPD Chronic. Stable. Asymptomatic Montelukast 10mg PO daily Duoneb q 4hrs prn Hx of Anxiety Cont. home meds Lexapro 5mg PO QD Paxil 40mg PO QD Ambien 5mg PO HS Xanax 0.5mg PO HS Dementia Cont home meds Risperidone 0.25mg PO QD HLD Lipitor 40mg PO HS History of DM2 HgA1C 6.3 on 04/12/2018 Metformin discontinued DVT prophylaxis Lovenox 40mg SC daily Code status Full code Decision To Admit - . Bed Request Type: Transitional Care Unit
[2018-04-15] MEDS: Enoxaparin 40 mg Syringe SC SCH (08:46)
--- NOTE | 2018-04-15 12:10 | CP.PCM.CON ---
History of Present Illness - History of Present Illness History of Present Illness: ID Consult Note- HPI- Patient known to me from her recent admission in med-surg floor for UTI. History of Present Illness: 82 y/o female with hx of of Dementia, COPD, HLD and HTN who presented to [facility] w/ right flank pain and dysuria. Patient was evaluated by PMD outpatient and started on Bactrim but her dysuria did not disappear. She was admitted to [facility] for pyelonephritis and found to have ESBL. Patient started on Meropenem 1mg IV Q8H and responding well to this. she is afebrile. normal wbc and her dysurea has resolved. she is transferred to TCU to complete the rest of her IV meropenem and to get PT. Pmhx: Dementia, COPD, HLD, HTN HomeRx: Lexapro 5mg PO QD, Lasix 20mg PO QD, Synthroid 25mcg PO QD, Cozaar 100mg PO QD, Paroxatine 40mg PO QD, Zocor 40mg PO QD, Ambien 5mg PO HS Allergies: NKDA FamHx: non-contributory Socialhx: denies toxic habits Code status: Full code Review of Systems - Review of Systems Review of Systems: ROS- denies any fefver or chills, denies any cough or sob, denies any cCP, denies any abd. pain, her right flank pain has resolved, denies any dysurea, + constipation Past Patient History - Tetanus Immunizations Tetanus Immunization: Unknown - Past Medical History & Family History Past Medical History?: Yes - Past Social History Smoking Status: Never Smoked - CARDIAC Hx Cardiac Disorders: Yes Hx Cardia Arrhythmia: No Hx Hypercholesterolemia: Yes Hx Hypertension: Yes - PULMONARY Hx Respiratory Disorders: Yes Hx Chronic Obstructive Pulmonary Disease (COPD): Yes Hx Pneumonia: Yes - NEUROLOGICAL Hx Neurological Disorder: Yes Hx Dementia: Yes Hx Seizures: Yes - HEENT Hx HEENT Problems: Yes - RENAL Hx Chronic Kidney Disease: Yes Hx Pyelonephritis: Yes Other/Comment: esbl in urine - ENDOCRINE/METABOLIC Hx Endocrine Disorders: Yes Hx Hypothyroidism: Yes - HEMATOLOGICAL/ONCOLOGICAL Hx Blood Disorders: No Hx Unexplained Bleeding: No - INTEGUMENTARY Hx Dermatological Problems: No - MUSCULOSKELETAL/RHEUMATOLOGICAL Hx Musculoskeletal Disorders: No Hx Falls: No - GASTROINTESTINAL Hx Gastrointestinal Disorders: No - GENITOURINARY/GYNECOLOGICAL Hx Genitourinary Disorders: No - PSYCHIATRIC Hx Substance Use: No - SURGICAL HISTORY Hx Surgeries: Yes Hx Cholecystectomy: Yes - ANESTHESIA Hx Anesthesia: Yes Hx Anesthesia Reactions: No Hx Malignant Hyperthermia: No Meds Allergies/Adverse Reactions: Allergies Allergy/AdvReac Type Severity Reaction Status Date / Time No Known Allergies Allergy Verified 04/14/18 14:17 - Medications Medications: Current Medications Alprazolam (Xanax) 0.5 mg PO HS [facility] Last Admin: 04/14/18 21:31 Dose: 0.5 mg Atorvastatin Calcium (Lipitor) 20 mg PO DAILY [facility] Last Admin: 04/15/18 08:47 Dose: 20 mg Dextrose (Dextrose 50% Inj) 0 ml IV STAT PRN; Protocol PRN Reason: Hypoglycemia Protocol Dextrose (Dextrose 50% Inj) 50 ml IVP ONCE PRN PRN Reason: Hypoglycemia Dextrose (Glutose 15) 0 gm PO ONCE PRN; Protocol PRN Reason: Hypoglycemia Protocol Enoxaparin Sodium (Lovenox) 40 mg SC DAILY [facility]; Protocol Last Admin: 04/15/18 08:46 Dose: 40 mg Escitalopram Oxalate (Lexapro) 5 mg PO DAILY [facility] Last Admin: 04/15/18 08:46 Dose: 5 mg Furosemide (Lasix) 20 mg PO DAILY [facility] Last Admin: 04/15/18 08:47 Dose: 20 mg Glucagon (Glucagen Diagnostic Kit) 0 mg IM STAT PRN; Protocol PRN Reason: Hypoglycemia Protocol Meropenem 1 gm/ Sodium (Chloride) 100 mls @ 100 mls/hr IVPB Q8@0500,1300,2100 [facility]; Protocol Last Admin: 04/15/18 05:35 Dose: 100 mls/hr Insulin Human Regular (Humulin R) 0 units SC [facility]; Protocol Last Admin: 04/15/18 12:00 Dose: 2 units Levothyroxine Sodium (Synthroid) 25 mcg PO DAILY@0630 [facility] Last Admin: 04/15/18 05:35 Dose: 25 mcg Losartan Potassium (Cozaar) 100 mg PO DAILY [facility] Last Admin: 04/15/18 08:47 Dose: 100 mg Montelukast Sodium (Singulair) 10 mg PO DAILY [facility] Last Admin: 04/15/18 08:46 Dose: 10 mg Paroxetine HCl (Paxil) 40 mg PO DAILY [facility] Last Admin: 04/15/18 09:00 Dose: 40 mg Risperidone (Risperdal Tab) 0.25 mg PO HS [facility] Last Admin: 04/14/18 21:31 Dose: 0.25 mg Zolpidem Tartrate (Ambien) 5 mg PO HS PRN PRN Reason: Sleep Physical Exam - Constitutional Appears: No Acute Distress - Head Exam Head Exam: ATRAUMATIC - Eye Exam Eye Exam: EOMI - ENT Exam ENT Exam: Normal Oropharynx - Neck Exam Neck exam: Positive for: Full Rom - Respiratory Exam Respiratory Exam: Clear to Auscultation Bilateral, NORMAL BREATHING PATTERN - Cardiovascular Exam Cardiovascular Exam: RRR, +S1, +S2 - GI/Abdominal Exam GI & Abdominal Exam: Normal Bowel Sounds, Soft Additional comments: NT, ND - Extremities Exam Extremities exam: Positive for: normal inspection - Neurological Exam Neurological exam: Alert, Oriented x3 Results - Vital Signs Recent Vital Signs: Last Vital Signs Temp 97.8 F 04/15/18 07:39 Pulse 78 04/15/18 08:47 Resp 20 04/15/18 07:39 BP 108/63 04/15/18 08:47 Pulse Ox 96 04/15/18 07:39 - Labs Result Diagrams: 04/15/18 06:00 04/15/18 06:00 Labs: Laboratory Results - last 24 hr 04/15/18 04/15/18 04/15/18 05:03 06:00 06:00 WBC 9.9 RBC 4.44 Hgb 11.4 L Hct 36.3 MCV 81.7 MCH 25.8 L MCHC 31.5 L RDW 17.4 H Plt Count 308 MPV 7.7 Neut % (Auto) 70.3 Lymph % (Auto) 16.6 L [place] % (Auto) 7.0 Eos % (Auto) 5.5 H Baso % (Auto) 0.6 Neut # (Auto) 6.9 Lymph # (Auto) 1.6 [place] # (Auto) 0.7 Eos # (Auto) 0.5 Baso # (Auto) 0.1 Sodium 136 Potassium 4.6 Chloride 95 L Carbon Dioxide 32 H Anion Gap 14 BUN 35 H Creatinine 1.2 Est GFR ( Amer) 52 Est GFR (Non-Af Amer) 43 POC Glucose (mg/dL) 116 H Random Glucose 103 Calcium 9.2 Total Bilirubin 0.3 AST 23 ALT 25 Alkaline Phosphatase 82 Total Protein 6.4 Albumin 3.2 L Globulin 3.2 Albumin/Globulin Ratio 1.0 04/15/18 10:40 WBC RBC Hgb Hct MCV MCH MCHC RDW Plt Count MPV Neut % (Auto) Lymph % (Auto) [place] % (Auto) Eos % (Auto) Baso % (Auto) Neut # (Auto) Lymph # (Auto) [place] # (Auto) Eos # (Auto) Baso # (Auto) Sodium Potassium Chloride Carbon Dioxide Anion Gap BUN Creatinine Est GFR ( Amer) Est GFR (Non-Af Amer) POC Glucose (mg/dL) 158 H Random Glucose Calcium Total Bilirubin AST ALT Alkaline Phosphatase Total Protein Albumin Globulin Albumin/Globulin Ratio Microbiology 04/10/18 16:00 Urine Random Urine Culture - Final Escherichia Coli 04/10/18 18:15 Blood-Venous Blood Culture - Preliminary 04/10/18 18:15 Blood-Venous NO GROWTH AFTER 4 DAYS Assessment & Plan (1) Infection due to ESBL-producing Escherichia coli Status: Acute Priority: Medium - Assessment and Plan (Free Text) Assessment: A/P- 82 year old female admitted with dysurea and right flank pain found to have E.Coli ESBL UTI being treated with IV meropnem and now transferred to TCU for completion of IV abx and to get PT. afebrile leukocytosis resolved. UA-positive Urine cx- ESBL e.coli Blood cx- neg PLan- advise to continue IV meropebnem to treat the ESBL e.coli UTI ? pyelo. day #4 will need at least 10 days of IV meropenem.( 6 more days). advise to recheck UA in few days. Thank you for allowing met o take part in the care of this patient.
[2018-04-15] MEDS: Proshield Plus GEL TOP SCH (21:13)
[2018-04-16] MEDS: Proshield Plus GEL TOP SCH ×3 (01:00→16:39)
[2018-04-16] MEDS: Meropenem 1 GM in Sodium Chloride 0.9% 100 ML IVPB SCH ×3 (05:32→21:10)
[2018-04-16] MEDS: Insulin Regular 100 units/ml SC SCH ×4 (06:46→21:16)
[2018-04-16] MEDS: Levothyroxine 25 MCG TAB PO SCH (06:47)
[2018-04-16] MEDS: Enoxaparin 40 mg Syringe SC SCH (08:35)
[2018-04-16 17:17] VITALS: RESP 20
[2018-04-17] MEDS: Proshield Plus GEL TOP SCH ×3 (01:46→16:39)
[2018-04-17] MEDS ORDERED: Vitamin A/D oint 60G TP ONE (04:49)
[2018-04-17] MEDS: Meropenem 1 GM in Sodium Chloride 0.9% 100 ML IVPB SCH ×3 (04:55→21:18)
[2018-04-17] MEDS: Levothyroxine 25 MCG TAB PO SCH (05:46)
[2018-04-17] MEDS: Insulin Regular 100 units/ml SC SCH ×4 (06:32→21:19)
[2018-04-17] MEDS: Enoxaparin 40 mg Syringe SC SCH (08:20)
--- NOTE | 2018-04-17 13:13 | CP.PCM.PN ---
<Milena Vargas - Last Filed: 04/17/18 13:18> Subjective - Date & Time of Evaluation Date of Evaluation: 04/17/18 Time of Evaluation: 13:18 - Subjective Subjective: Patient seen and examined at bedside. Feeling well, no complaints at this time. Refusing PT/OT, stating she'd prefer to do physical exercises at home. Objective - Vital Signs/Intake and Output Vital Signs (last 24 hours): Temp Pulse Resp BP Pulse Ox 97.5 F L 68 20 116/68 97 04/17/18 08:06 04/17/18 08:06 04/17/18 08:06 04/17/18 08:20 04/17/18 08:06 - Medications Medications: Current Medications Alprazolam (Xanax) 0.5 mg PO HS [facility] Atorvastatin Calcium (Lipitor) 20 mg PO DAILY [facility] Last Admin: 04/17/18 08:21 Dose: 20 mg Dextrose (Dextrose 50% Inj) 0 ml IV STAT PRN; Protocol PRN Reason: Hypoglycemia Protocol Dextrose (Dextrose 50% Inj) 50 ml IVP ONCE PRN PRN Reason: Hypoglycemia Dextrose (Glutose 15) 0 gm PO ONCE PRN; Protocol PRN Reason: Hypoglycemia Protocol Dimethicone (Proshield Plus Skin Protectant) 1 applic TOP Q8 [facility] Last Admin: 04/17/18 08:20 Dose: 1 applic Enoxaparin Sodium (Lovenox) 40 mg SC DAILY [facility]; Protocol Last Admin: 04/17/18 08:20 Dose: 40 mg Escitalopram Oxalate (Lexapro) 5 mg PO DAILY [facility] Last Admin: 04/17/18 08:20 Dose: 5 mg Furosemide (Lasix) 20 mg PO DAILY [facility] Last Admin: 04/17/18 08:20 Dose: 20 mg Glucagon (Glucagen Diagnostic Kit) 0 mg IM STAT PRN; Protocol PRN Reason: Hypoglycemia Protocol Meropenem 1 gm/ Sodium (Chloride) 100 mls @ 100 mls/hr IVPB Q8@0500,1300,2100 [facility]; Protocol Last Admin: 04/17/18 12:06 Dose: 100 mls/hr Insulin Human Regular (Humulin R) 0 units SC ACHS [facility]; Protocol Last Admin: 04/17/18 10:53 Dose: Not Given Levothyroxine Sodium (Synthroid) 25 mcg PO DAILY@0630 [facility] Last Admin: 04/17/18 05:46 Dose: 25 mcg Losartan Potassium (Cozaar) 100 mg PO DAILY [facility] Last Admin: 04/17/18 08:21 Dose: 100 mg Montelukast Sodium (Singulair) 10 mg PO DAILY [facility] Last Admin: 04/17/18 08:21 Dose: 10 mg Nystatin (Nystop Topical Powder) 1 applic TOP TID [facility] Last Admin: 04/17/18 12:06 Dose: 1 applic Paroxetine HCl (Paxil) 40 mg PO DAILY [facility] Last Admin: 04/17/18 08:20 Dose: 40 mg Risperidone (Risperdal Tab) 0.25 mg PO HS [facility] Last Admin: 04/16/18 21:11 Dose: 0.25 mg Zolpidem Tartrate (Ambien) 5 mg PO HS PRN PRN Reason: Insomnia - Labs Labs: 04/15/18 06:00 04/15/18 06:00 - ENT Exam ENT Exam: Mucous Membranes Moist - Respiratory Exam Respiratory Exam: Clear to Ausculation Bilateral, NORMAL BREATHING PATTERN - Cardiovascular Exam Cardiovascular Exam: REGULAR RHYTHM, +S1, +S2 - GI/Abdominal Exam GI & Abdominal Exam: Soft, Normal Bowel Sounds. absent: Tenderness - Back Exam Back Exam: NORMAL INSPECTION. absent: CVA tenderness (L), CVA tenderness (R) - Psychiatric Exam Psychiatric exam: Normal Mood - Skin Skin Exam: Dry, Intact, Warm Assessment and Plan - Assessment and Plan (Free Text) Assessment: 82 yo female w/ pmhx of Dementia, COPD, HLD and HTN admitted to TCU for continuation of IV antibiotics for ESBL pyelonephritis. Pyelonephritis secondary to ESBL Leukocytosis resolved Meropenem 1mg IV Q8H (day 6) ID consulted; Dr. Olivera following; appreciate recs Hx of HTN Chronic, elevated BP Losartan 100mg PO daily and Lasix 20mg PO QD continue monitoring BP COPD Chronic. Stable. Asymptomatic Montelukast 10mg PO daily Duoneb q 4hrs prn Hx of Anxiety Cont. home meds Lexapro 5mg PO QD Paxil 40mg PO QD Ambien 5mg PO HS Xanax 0.5mg PO HS Dementia Cont home meds Risperidone 0.25mg PO QD HLD Lipitor 40mg PO HS History of DM2 HgA1C 6.3 on 04/12/2018 Metformin discontinued DVT prophylaxis Lovenox 40mg SC daily Code status Full code <Shaniqua Nieto - Last Filed: 04/19/18 16:43> Objective - Vital Signs/Intake and Output Vital Signs (last 24 hours): Temp Pulse Resp BP Pulse Ox 98.0 F 70 20 136/72 97 04/19/18 16:10 04/19/18 16:10 04/19/18 16:10 04/19/18 16:10 04/19/18 16:10 - Medications Medications: Current Medications Alprazolam (Xanax) 0.5 mg PO HS [facility] Last Admin: 04/18/18 21:00 Dose: 0.5 mg Atorvastatin Calcium (Lipitor) 20 mg PO DAILY [facility] Last Admin: 04/19/18 08:20 Dose: 20 mg Dextrose (Dextrose 50% Inj) 0 ml IV STAT PRN; Protocol PRN Reason: Hypoglycemia Protocol Dextrose (Dextrose 50% Inj) 50 ml IVP ONCE PRN PRN Reason: Hypoglycemia Dextrose (Glutose 15) 0 gm PO ONCE PRN; Protocol PRN Reason: Hypoglycemia Protocol Dimethicone (Proshield Plus Skin Protectant) 1 applic TOP Q8 [facility] Last Admin: 04/19/18 16:24 Dose: 1 applic Enoxaparin Sodium (Lovenox) 40 mg SC DAILY [facility]; Protocol Last Admin: 04/19/18 08:19 Dose: 40 mg Escitalopram Oxalate (Lexapro) 5 mg PO DAILY [facility] Last Admin: 04/19/18 08:19 Dose: 5 mg Furosemide (Lasix) 20 mg PO DAILY [facility] Last Admin: 04/19/18 08:19 Dose: 20 mg Glucagon (Glucagen Diagnostic Kit) 0 mg IM STAT PRN; Protocol PRN Reason: Hypoglycemia Protocol Meropenem 1 gm/ Sodium (Chloride) 100 mls @ 100 mls/hr IVPB Q8@0500,1300,2100 [facility]; Protocol Last Admin: 04/19/18 12:14 Dose: 100 mls/hr Sodium Chloride (Sodium Chloride 0.9%) 1,000 mls @ 100 mls/hr IV .Q10H [facility] Stop: 04/20/18 10:15 Last Admin: 04/19/18 11:42 Dose: 100 mls/hr Insulin Human Regular (Humulin R) 0 units SC ACHS [facility]; Protocol Last Admin: 02/16/19 16:05 Dose: Not Given Levothyroxine Sodium (Synthroid) 25 mcg PO DAILY@0630 [facility] Last Admin: 04/19/18 05:43 Dose: 25 mcg Losartan Potassium (Cozaar) 100 mg PO DAILY [facility] Last Admin: 04/19/18 08:19 Dose: 100 mg Montelukast Sodium (Singulair) 10 mg PO DAILY [facility] Last Admin: 04/19/18 08:20 Dose: 10 mg Nystatin (Nystop Topical Powder) 1 applic TOP TID [facility] Last Admin: 04/19/18 16:24 Dose: 1 applic Paroxetine HCl (Paxil) 40 mg PO DAILY [facility] Last Admin: 04/19/18 08:19 Dose: 40 mg Risperidone (Risperdal Tab) 0.25 mg PO HS [facility] Last Admin: 04/18/18 21:00 Dose: 0.25 mg Zolpidem Tartrate (Ambien) 5 mg PO HS PRN PRN Reason: Insomnia - Labs Labs: 04/18/18 06:00 04/19/18 06:50 Attending/Attestation - Attestation I have personally seen and examined this patient.: Yes I have fully participated in the care of the patient.: Yes I have reviewed all pertinent clinical information, including history, physical exam and plan: Yes Notes (Text): 04/19/18 16:43 agree with findings and plan as above
[2018-04-18] MEDS: Proshield Plus GEL TOP SCH ×3 (01:15→17:25)
[2018-04-18] MEDS: Meropenem 1 GM in Sodium Chloride 0.9% 100 ML IVPB SCH ×3 (05:47→20:57)
[2018-04-18] MEDS: Levothyroxine 25 MCG TAB PO SCH (05:47)
[2018-04-18] MEDS: Insulin Regular 100 units/ml SC SCH ×4 (06:41→20:59)
[2018-04-18 06:45] LABS: BASO # 0.1 K/uL (0.0-0.2); BASO % 0.7 % (0.0-2.0); EOS # 0.6 K/uL (0.0-0.7); EOS % 6.3 % (0.0-4.0); HEMOGLOBIN 10.8 g/dL (12.0-16.0); LYMPH # 2.2 K/uL (1.0-4.3); LYMPH % 22.6 % (20.0-40.0); MEAN CELL VOLUME 81.5 fl (81.0-99.0); MEAN CORPUSCULAR HEMOGLOBIN 25.5 pg (27.0-31.0); MEAN CORPUSCULAR HGB CONC 31.3 g/dL (33.0-37.0); MONO # 0.8 K/uL (0.0-0.8); MONO % 8.5 % (0.0-10.0); NEUT # 6.2 K/uL (1.8-7.0); NEUT % 61.9 % (50.0-75.0); NRBC % 0.1 % (0.0-0.0); RBC 4.21 Mil/uL (3.80-5.20); RED CELL DISTRIBUTION WIDTH 17.3 % (11.5-14.5); WHITE BLOOD COUNT 9.9 K/uL (4.8-10.8)
[2018-04-18] MEDS: Enoxaparin 40 mg Syringe SC SCH (08:38)
[2018-04-18] MEDS: Sodium Chloride 0.9% 1,000 ML IV SCH (20:58)
[2018-04-19] MEDS: Sodium Chloride 0.9% 1,000 ML IV SCH ×3 (02:21→22:02)
[2018-04-19] MEDS: Meropenem 1 GM in Sodium Chloride 0.9% 100 ML IVPB SCH ×3 (04:02→21:59)
[2018-04-19] MEDS: Levothyroxine 25 MCG TAB PO SCH (05:43)
[2018-04-19] MEDS: Insulin Regular 100 units/ml SC SCH ×4 (06:40→22:52)
[2018-04-19] MEDS: Proshield Plus GEL TOP SCH ×3 (08:18→16:24)
[2018-04-19] MEDS: Enoxaparin 40 mg Syringe SC SCH (08:19)
[2018-04-19 10:08] LABS: CALCIUM 8.6 mg/dL (8.4-10.2)
[2018-04-20] MEDS: Proshield Plus GEL TOP SCH ×2 (00:14→08:24)
[2018-04-20] MEDS: Levothyroxine 25 MCG TAB PO SCH (05:46)
[2018-04-20] MEDS: Sodium Chloride 0.9% 1,000 ML IV SCH (05:46)
[2018-04-20] MEDS: Insulin Regular 100 units/ml SC SCH ×2 (06:32→11:06)
[2018-04-20 07:07] LABS: CALCIUM 8.3 mg/dL (8.4-10.2)
[2018-04-20 07:42] VITALS: BP 159/81; TEMP 97.8; O2SAT 97
[2018-04-20 08:26] VITALS: PULSE 64
[2018-04-20] MEDS: Enoxaparin 40 mg Syringe SC SCH (08:26)
--- NOTE | 2018-04-20 10:36 | CP.PCM.DIS ---
Provider - Provider Date of Admission: 04/14/18 15:54 Attending physician: Laurent Camejo MD Primary care physician: Dr Infante Consults: 04/14/18 16:25 Infectious Disease Consult Routine Comment: Consulting Provider: Snehal Olivera Consulting Physician: Snehal Olivera Reason for Consult: 83 YO M w/ ESBL is being treated with meropenum. 04/14/18 18:01 Case Management Referral Routine Comment: Physician Instructions: Reason For Exam: Reason for Referral: Discharge Planning 04/14/18 18:02 Wound Care [Nursing Referral for Wound Care] Routine Comment: Physician Instructions: Reason For Exam: excoriation Time Spent in preparation of Discharge (in minutes): 20 Diagnosis - Discharge Diagnosis (1) UTI (urinary tract infection), bacterial Status: Acute Priority: High (2) SHRAVAN (acute kidney injury) Status: Acute Priority: Medium (3) DM2 (diabetes mellitus, type 2) Status: Chronic (4) HTN (hypertension) Status: Chronic Priority: Medium (5) Hyperlipidemia Status: Chronic Priority: Medium (6) Hypothyroidism Status: Chronic Priority: Low Hospital Course - Lab Results Lab Results: Most Recent Lab Values WBC 9.9 K/uL (4.8-10.8) 04/18/18 06:00 RBC 4.21 Mil/uL (3.80-5.20) 04/18/18 06:00 Hgb 10.8 g/dL (12.0-16.0) L 04/18/18 06:00 Hct 34.4 % (34.0-47.0) 04/18/18 06:00 MCV 81.5 fl (81.0-99.0) 04/18/18 06:00 MCH 25.5 pg (27.0-31.0) L 04/18/18 06:00 MCHC 31.3 g/dL (33.0-37.0) L 04/18/18 06:00 RDW 17.3 % (11.5-14.5) H 04/18/18 06:00 Plt Count 323 K/uL (130-400) 04/18/18 06:00 MPV 8.0 fl (7.2-11.7) 04/18/18 06:00 Neut % (Auto) 61.9 % (50.0-75.0) 04/18/18 06:00 Lymph % (Auto) 22.6 % (20.0-40.0) 04/18/18 06:00 [place] % (Auto) 8.5 % (0.0-10.0) 04/18/18 06:00 Eos % (Auto) 6.3 % (0.0-4.0) H 04/18/18 06:00 Baso % (Auto) 0.7 % (0.0-2.0) 04/18/18 06:00 Neut # (Auto) 6.2 K/uL (1.8-7.0) 04/18/18 06:00 Lymph # (Auto) 2.2 K/uL (1.0-4.3) 04/18/18 06:00 [place] # (Auto) 0.8 K/uL (0.0-0.8) 04/18/18 06:00 Eos # (Auto) 0.6 K/uL (0.0-0.7) 04/18/18 06:00 Baso # (Auto) 0.1 K/uL (0.0-0.2) 04/18/18 06:00 Sodium 140 mmol/l (132-148) 04/20/18 05:30 Potassium 4.4 MMOL/L (3.6-5.0) 04/20/18 05:30 Chloride 101 mmol/L (98-107) 04/20/18 05:30 Carbon Dioxide 31 mmol/L (22-30) H 04/20/18 05:30 Anion Gap 12 (10-20) 04/20/18 05:30 BUN 51 mg/dl (7-17) H 04/20/18 05:30 Creatinine 1.1 mg/dl (0.7-1.2) 04/20/18 05:30 Est GFR ( Amer) 57 04/20/18 05:30 Est GFR (Non-Af Amer) 47 04/20/18 05:30 POC Glucose (mg/dL) 100 mg/dL (65-110) 04/20/18 04:34 Random Glucose 100 mg/dL (65-105) 04/20/18 05:30 Calcium 8.3 mg/dL (8.4-10.2) L 04/20/18 05:30 Total Bilirubin 0.3 mg/dl (0.2-1.3) 04/15/18 06:00 AST 23 U/L (14-36) 04/15/18 06:00 ALT 25 U/L (9-52) 04/15/18 06:00 Alkaline Phosphatase 82 U/L (38-126) 04/15/18 06:00 Total Protein 6.4 G/DL (6.3-8.2) 04/15/18 06:00 Albumin 3.2 g/dL (3.5-5.0) L 04/15/18 06:00 Globulin 3.2 gm/dL (2.2-3.9) 04/15/18 06:00 Albumin/Globulin Ratio 1.0 (1.0-2.1) 04/15/18 06:00 - Hospital Course Hospital Course: 82 yo female w/ pmhx of Dementia, COPD, HLD and HTN initially admitted in the Acute Medical unit for Pyelonephritis , admitted to TCU for continuation of IV antibiotics for ESBL E Coli Pyelonephritis. Pyelonephritis secondary to ESBL E Coli Leukocytosis resolved completed IV Meropenem 1mg IV Q8H ID consulted; Dr. Olivera Hx of HTN Chronic, elevated BP Losartan 100mg PO daily and Lasix 20mg PO QD continue monitoring BP COPD Chronic. Stable. Asymptomatic Montelukast 10mg PO daily Duoneb q 4hrs prn Hx of Anxiety Cont. home meds Lexapro 5mg PO QD Paxil 40mg PO QD Ambien 5mg PO HS Xanax 0.5mg PO HS Dementia Cont home meds Risperidone 0.25mg PO QD HLD Lipitor 40mg PO HS History of DM2 HgA1C 6.3 on 04/12/2018 Metformin discontinued DVT prophylaxis Lovenox 40mg SC daily Discharge Exam - Head Exam Head Exam: ATRAUMATIC, NORMAL INSPECTION, NORMOCEPHALIC - Eye Exam Eye Exam: Normal appearance Pupil Exam: NORMAL ACCOMODATION - ENT Exam ENT Exam: Mucous Membranes Moist, Normal External Ear Exam - Neck Exam Neck exam: Full Rom - Respiratory Exam Respiratory Exam: NORMAL BREATHING PATTERN. absent: Respiratory Distress - Cardiovascular Exam Cardiovascular Exam: REGULAR RHYTHM, +S1, +S2 - GI/Abdominal Exam GI & Abdominal Exam: Normal Bowel Sounds, Soft. absent: Tenderness - Extremities Exam Extremities exam: normal capillary refill, pedal pulses present - Back Exam Back exam: absent: CVA tenderness (L), CVA tenderness (R) - Neurological Exam Neurological exam: Alert, Reflexes Normal Additional comments: oriented to person and place - Psychiatric Exam Psychiatric exam: Normal Affect, Normal Mood - Skin Skin Exam: Dry, Normal Color, Warm Discharge Plan - Follow Up Plan Condition: GOOD Disposition: HOME/ ROUTINE Instructions: Urinary Tract Infections in Adults, Urinary Incontinence, Female (DC), Preventing Falls, Extended-Spectrum Beta Lactamase Infection Additional Instructions: ff up with PMD josé luis- Dr Infante Referrals: Eddie Infante MD [Family Provider] -
== END 2018-04-20 12:31 | disposition home health service (06) | DRG 690 ==
LOC: H.TCU 15:54
PROVIDERS: ADMIT Hospitalist; ATTEND Hospitalist
DX: N12 Tubulo-interstitial nephritis, not specified as acute or chronic (principal); N17.9 Acute kidney failure, unspecified; N18.9 Chronic kidney disease, unspecified; Z16.12 Extended spectrum beta lactamase (ESBL) resistance; Z53.20 Procedure and treatment not carried out because of patient's decision for unspecified reasons; Z87.01 Personal history of pneumonia (recurrent); Z90.49 Acquired absence of other specified parts of digestive tract; F41.9 Anxiety disorder, unspecified; R56.9 Unspecified convulsions; B96.20 Unspecified Escherichia coli [E. coli] as the cause of diseases classified elsewhere; E03.9 Hypothyroidism, unspecified; E11.22 Type 2 diabetes mellitus with diabetic chronic kidney disease; E78.00 Pure hypercholesterolemia, unspecified; E78.5 Hyperlipidemia, unspecified; F03.90 Unspecified dementia, unspecified severity, without behavioral disturbance, psychotic disturbance, mood disturbance, and anxiety; I12.9 Hypertensive chronic kidney disease with stage 1 through stage 4 chronic kidney disease, or unspecified chronic kidney disease; J44.9 Chronic obstructive pulmonary disease, unspecified